=== PATIENT | male | born 1970 | race Hispanic/Latino ===

== ENCOUNTER 2024-06-09 16:35 | Emergency (ER) | payer OTHER ==
[~2024-06-09] VITALS: Ht 170.2 cm; Wt 63.5 kg
[2024-06-09 17:08] LABS: BASOPHILS # (AUTO) 0.04 K/uL (0.00-0.20); BASOPHILS % (AUTO) 0.9 % (0.0-5.0); EOSINOPHILS % (AUTO) 2.3 % (0.0-8.0); HEMATOCRIT 39.2 % (42-54); IMMATURE GRANULOCYTE ABSOLUTE 0.03 K/uL (0-1); LYMPHOCYTES # (AUTO) 1.4 K/uL (1.0-4.8); LYMPHOCYTES % (AUTO) 32.4 % (21.0-51.0); MEAN CORPUSCULAR HEMOGLOBIN 33.3 pg (27.0-33.0); MEAN CORPUSCULAR HGB CONC 33.9 g/dL (32.0-36.0); MONOCYTES # (AUTO) 0.4 K/uL (0.1-1.0); MONOCYTES % (AUTO) 8.6 % (3.0-13.0); NEUTROPHILS # (AUTO) 2.4 K/uL (1.8-7.7); NEUTROPHILS % (AUTO) 55.1 % (40.0-77.0); PLATELET COUNT (AUTO) 75 K/uL (130-400); WHITE BLOOD COUNT (AUTO) 4.3 K/uL (4.8-10.8)
[2024-06-09 17:22] LABS: CREATININE 0.5 mg/dL (0.5-1.3); POTASSIUM 3.6 mmol/L (3.5-5.1)
--- NOTE | 2024-06-09 17:29 | HMCIMG ---
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 Heart size is normal. The pulmonary vascularity and sonia appear normal. No abnormal pulmonary parenchymal opacity or consolidation identified. No significant pleural effusion noted. No pneumothorax detected. IMPRESSION: No radiographic evidence for any acute cardiopulmonary process.
--- NOTE | 2024-06-09 17:30 | NUR ---
PATIENT MADE AWARE OF UA SPECIMEN,. URINAL GIVEN
[2024-06-09 17:31] LABS: B-TYPE NATRIURETIC PEPTIDE 15 pg/mL (0-100)
--- NOTE | 2024-06-09 18:14 | ERN ---
General Chief Complaint: Chest Pain Stated Complaint: CP Time Seen by MD: 17:25 Time Seen by Midlevel: 17:25 Source: patient History of Present Illness Initial Comments 53-year-old male who presents to the emergency department due to chest pain onset 2 hours prior to arrival. Patient reports previous similar symptoms during a panic attack. Patient's pain resolved upon arrival to the ED. Patient suffers from anxiety but discontinued medication two years ago. Denies further associated symptoms. PMHx HTN, anxiety Allergies: Coded Allergies: NSAIDS (Non-Steroidal Anti-Inflamma (Unverified Allergy, Intermediate, 06/09/24) aspirin (Unverified Allergy, Intermediate, 06/09/24) ibuprofen (Unverified Allergy, Intermediate, 06/09/24) Past Medical History Past Medical History: Anxiety, Hypertension Past Surgical History: None ROS Dictation Constitutional: Positive for anxious feeling Negative for fever,chills, and weight loss Eyes: Negative for injury, pain,redness, and discharge ENT: Negative for injury,pain or swelling Cardiovascular: Positive for chest pain Negative for palpitations, and edema Respiratory: Negative for shortness of breath, cough, and wheezing, Abdomen/GI: Negative for abdominal pain, nausea, vomiting, diarrhea, and constipation Back: Negative for injury and pain : Negative for painful urination, bleeding or discharge MS/Extremity: Negative for injury and deformity Skin: Negative for rash, and discoloration Neuro: Negative for headache, weakness, numbness, tingling, and seizure Psych: Negative for suicide ideation, homicidal ideation, and hallucinations Physical Exam Physical Exam Dictation General: awake, alert, no acute distress Head/Face: Normocephalic, atraumatic Eyes: PERRL, EOMI, normal conjunctiva ENT: oral cavity clear, oral mucosa moist Neck: Supple, normal range of motion Cardiovascular: RRR, normal S1/S2 Respiratory: CTAB, no respiratory distress, no rales or wheezes Abdomen: Soft, non-tender, non-distended, normal bowel sounds, no guarding or rebound Skin: Warm, dry, normal turgor, no rash MS/Extremity: Pulses equal, no cyanosis, neurovascular intact, FROM Neuro: COAx4, GCS 15, strength 5/5, CN 2-12 intact, normal cerebellar exam, normal gait Psych: Normal behavior, mood, and affect normal Results Laboratory and Microbiology Lab and Micro Result Laboratory Tests Test 06/09/24 16:55 06/09/24 18:24 06/09/24 19:36 White Blood Count 4.3 K/uL (4.8-10.8) L Red Blood Count 4.00 MIL/uL (4.50-6.20) L Hemoglobin 13.3 g/dL (14.0-18.0) L Hematocrit 39.2 % (42-54) L Mean Corpuscular Volume 98.0 fL (79-99) Mean Corpuscular Hemoglobin 33.3 pg (27.0-33.0) H Mean Corpuscular Hemoglobin Concent 33.9 g/dL (32.0-36.0) Red Cell Distribution Width 13.0 % (11.0-15.5) Platelet Count 75 K/uL (130-400) L Mean Platelet Volume 8.9 fL (7.5-10.5) Immature Granulocyte % (Auto) 0.7 % (0-1) Neutrophils (%) (Auto) 55.1 % (40.0-77.0) Lymphocytes (%) (Auto) 32.4 % (21.0-51.0) Monocytes (%) (Auto) 8.6 % (3.0-13.0) Eosinophils (%) (Auto) 2.3 % (0.0-8.0) Basophils (%) (Auto) 0.9 % (0.0-5.0) Neutrophils # (Auto) 2.4 K/uL (1.8-7.7) Lymphocytes # (Auto) 1.4 K/uL (1.0-4.8) Monocytes # (Auto) 0.4 K/uL (0.1-1.0) Eosinophils # (Auto) 0.10 K/uL (0.00-0.70) Basophils # (Auto) 0.04 K/uL (0.00-0.20) Absolute Immature Granulocyte (auto 0.03 K/uL (0-1) Nucleated Red Blood Cells 0.0 % (0.0-0.19) Sodium Level 143 mmol/L (136-145) Potassium Level 3.6 mmol/L (3.5-5.1) Chloride Level 101 mmol/L (101-111) Carbon Dioxide Level 26 mmol/L (21-32) Blood Urea Nitrogen 3 mg/dL (7-18) L Creatinine 0.5 mg/dL (0.5-1.3) Glomerular Filtration Rate Calc 123 mL/min (>90) Random Glucose 88 mg/dL (70-105) Total Calcium 8.6 mg/dL (8.5-10.1) Total Creatine Kinase 122 U/L (21-232) Troponin I High Sensitivity 6.0 ng/L (4-75) 8 ng/L (4-75) B-Type Natriuretic Peptide 15 pg/mL (0-100) Urine Color COLORLESS (YELLOW) Urine Appearance CLEAR (CLEAR) Urine pH 5.5 (5.0-8.0) Urine Specific [place] 1.003 (1.001-1.031) Urine Protein NEGATIVE mg/dL (NEGATIVE) Urine Glucose (UA) NEGATIVE mg/dL (NEGATIVE) Urine Ketones 10 mg/dL (NEGATIVE) H Urine Occult Blood NEGATIVE (NEGATIVE) Urine Nitrate NEGATIVE (NEGATIVE) Urine Bilirubin NEGATIVE mg/dL (NEGATIVE) Urine Urobilinogen 0.2 mg/dL (0.2-1.0) Urine Leukocyte Esterase NEGATIVE Pattie/uL Urine RBC None /HPF (0-1) Urine WBC None /HPF (0-1) Urine Bacteria None /HPF (None Seen) Urine Opiates Screen NEGATIVE (NEGATIVE) Urine Barbiturates Screen NEGATIVE (NEGATIVE) Urine Phencyclidine Screen NEGATIVE (NEGATIVE) Urine Amphetamines Screen NEGATIVE (NEGATIVE) Urine Benzodiazepines Screen NEGATIVE (NEGATIVE) Urine Cocaine Screen NEGATIVE (NEGATIVE) Urine Marijuana (THC) Screen NEGATIVE (NEGATIVE) Labs Reviewed?: Yes EKG/XRAY/US/CT/MRI EKG Comment Date: 06/09/24 Time: 16:57 Rate: 71 EKG interpretation: Normal sinus rhythm, no STEMI Reviewed by ED Attending Date: 06/09/24 Time: 17:59 Rate: 79 EKG interpretation: Normal sinus rhythm, no STEMI Reviewed by ED Attending X-RAY Comment REASON: CHEST PAIN ORDERING PHYSICIAN: SRIRAM WYATT DO PROCEDURE: CXR1VW - CHEST 1VW PORTABLE CHEST RADIOGRAPH INDICATION: CHEST PAIN COMPARISON: None FINDINGS: renal dietitian leads overlie the field of view. Heart size is normal. The pulmonary vascularity and sonia appear normal. No abnormal pulmonary parenchymal opacity or consolidation identified. No significant pleural effusion noted. No pneumothorax detected. IMPRESSION: No radiographic evidence for any acute cardiopulmonary process. DICTATED BY: MARCO LOU MD DATE: 06/09/24 1721 MDM MDM: Differential diagnosis: Musculoskeletal chest pain, DC, ACS Rationale: 53-year-old male who presents to the emergency department due to chest pain onset 2 hours prior to arrival. Patient reports previous similar symptoms during a panic attack. Patient's pain resolved upon arrival to the ED. Patient suffers from anxiety but discontinued medication two years ago. Denies further associated symptoms. PMHx HTN, anxiety Per physical examination patient is in no acute distress, nonlabored breathing. Verbalized pain had resolved. Heart score 2. Labs obtained with mild decrease WBCs, mild anemia with hemoglobin of 13.3, otherwise normal labs, negative troponin. UA negative for urinary tract infection, UDS negative. Patient was educated on findings and diagnosis. Advised to follow up with PCP. Return to the emergency department if any worsening symptoms. Patient verbalized understanding. Patient stable for discharge. There are no social concerns with this patient. I independently interpreted the test that were performed, results were reviewed by me and considered findings on radiology if ordered. Medical management and examination interpretation discussions were had by me with other qualified healthcare professionals as indicated for the patient's care. ED Course Orders Procedure Category Date Status Time Vital Signs Per CPOE 06/09/24 Transmitted Routine 16:37 B-Type Natriuretic LAB 06/09/24 Complete Peptide 16:37 Chest 1vw RAD 06/09/24 Resulted 16:37 12 Lead Ekg Tracing- EKG 06/09/24 Complete Technical 16:37 Oxygen By Nc/Pulse Ox CPOE 06/09/24 Transmitted 16:37 Maintain Iv CPOE 06/09/24 Transmitted 16:37 Iv Insertion CPOE 06/09/24 Transmitted 16:37 Cardiac Monitoring CPOE 06/09/24 Transmitted 16:37 Pulse Oximetry With CPOE 06/09/24 Transmitted Vs And Prn 16:37 Cbc With Differential LAB 06/09/24 Complete 16:37 Activity: Br W/Brp CPOE 06/09/24 Transmitted With Assist 16:37 Urinalysis Profile LAB 06/09/24 Complete 16:37 Basic Metabolic Panel LAB 06/09/24 Complete 16:37 Cardiac Panel LAB 06/09/24 Complete 16:55 Drug Screen Urine LAB 06/09/24 Complete 17:43 12 Lead Ekg Tracing- EKG 06/09/24 Complete Technical 17:46 Troponin I High LAB 06/09/24 Complete Sensitivity 19:16 Vital Signs Date Time Temp Pulse Resp B/P (MAP) Pulse Ox O2 Delivery O2 Flow Rate FiO2 06/09/24 20:22 98.2 80 24 143/86 98 Room Air* 0 06/09/24 19:50 98.2 85 20 132/78 98 Room Air* 0 21 06/09/24 18:33 78 16 146/87 98 Room Air* 0 06/09/24 16:52 81 22 147/85 97 Room Air* 0 06/09/24 16:38 97.9 74 18 160/80 99 Room Air 0 HEART Score Response (Comments) Value History: Low suspicion (0) 0 EKG: Normal 0 Age: 45-65yrs (+1) 1 Risk Factors: 1-2 risk factors (+1) 1 Initial Troponin: Normal limit (0) 0 HEART Score Risk: Low Risk for MACE (1-3) Total 2 DX & DISP Disposition: Discharge Departure Impression: Primary Impression: Chest pain with low risk for cardiac etiology Additional Impression: Anxiousness Condition: Stable Additional Instructions: Discharge home. Rest. Follow up with primary care DrJuice in 24 hours. Return to the ER for any acute changes or worsening symptoms. If any medications were prescribed take as directed. Okay to continue home medications unless otherwise discussed during your visit in the emergency room today. Patient was also advised to follow-up with primary care physician in 1 to 2 days for continued monitoring. Referrals: SELF,REFERRAL (PCP) I performed the substantive portion of the visit. I have reviewed and personally made and approve the management plan that is documented in the notes by myself or the SHANTEL. I acknowledge full responsibility for the patient's management plan. YONATAN JEAN Jun 09, 2024 18:14 SRIRAM WYATT DO Jun 10, 2024 07:45
--- NOTE | 2024-06-09 18:34 | NUR ---
STATES NO LONGER HAS CHEST DISCOMFORT
[2024-06-09 18:45] LABS: APPEARANCE,URINE CLEAR (CLEAR); BILIRUBIN,URINE NEGATIVE (NEGATIVE); COLOR,URINE COLORLESS (YELLOW); GLUCOSE, URINE (UA) NEGATIVE (NEGATIVE); KETONES,URINE 10 mg/dL (NEGATIVE); LEUKOCYTE ESTERASE ,URINE NEGATIVE Leu/uL (NEGATIVE); NITRATE,URINE NEGATIVE (NEGATIVE); OCCULT BLOOD,URINE NEGATIVE (NEGATIVE); PH,URINE 5.5 (5.0-8.0); PROTEIN,URINE NEGATIVE (NEGATIVE); UROBILINOGEN,URINE 0.2 mg/dL (0.2-1.0)
[2024-06-09 18:46] LABS: ADD UA MICROSCOPIC YES
[2024-06-09 18:52] LABS: AMPHET/METH SCREEN,URINE NEGATIVE (NEGATIVE); BARBITURATE SCREEN, URINE NEGATIVE (NEGATIVE); BENZODIAZEPINES SCREEN,URINE NEGATIVE (NEGATIVE); CANNABINOID SCREEN,URINE NEGATIVE (NEGATIVE); COCAINE SCREEN,URINE NEGATIVE (NEGATIVE); OPIATE SCREEN,URINE NEGATIVE (NEGATIVE); PHENCYCLIDINE SCREEN,URINE NEGATIVE (NEGATIVE)
--- NOTE | 2024-06-09 19:24 | NUR ---
PT CARE ASSUMED AT THIS TIME
[2024-06-09 20:22] VITALS: BP 143/86; PULSE 80; RESP 24; TEMP 98.2; O2SAT 98
--- NOTE | 2024-06-10 06:45 | EKG ---
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
--- NOTE | 2024-06-10 06:46 | EKG ---
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
== END 2024-06-09 20:50 | disposition home or self-care (01) ==
LOC: EDH 16:35
DX: R07.89 Other chest pain (principal); F41.9 Anxiety disorder, unspecified; I10 Essential (primary) hypertension; Z88.6 Allergy status to analgesic agent
CPT/HCPCS: 36415; 71045; 80048; 80305; 81001; 82550; 83880; 84484; 85025; 93005; 99285

== ENCOUNTER 2024-11-28 07:02 | Inpatient (IN) | payer OTHER ==
[~2024-11-28] VITALS: Ht 162.6 cm; Wt 77.4 kg
[2024-11-28] VITALS (25 sets, daily range): BP systolic 86–159; BP diastolic 56–111; PULSE 76–107; RESP 14–30; TEMP 98.5–98.6; O2SAT 97–98
--- NOTE | 2024-11-28 07:38 | ERN ---
General Chief Complaint: Fatigue Stated Complaint: FATIGUE Time Seen by MD: 07:25 Source: patient, family History of Present Illness Initial Comments Patient is a 54-year-old male coming in complaining of generalized body weakness elevated blood pressure. Patient states he has a history of hypertension and he believes his liver is affected. Allergies: Coded Allergies: NSAIDS (Non-Steroidal Anti-Inflamma (Unverified Allergy, Intermediate, 06/09/24) aspirin (Unverified Allergy, Intermediate, 06/09/24) ibuprofen (Unverified Allergy, Intermediate, 06/09/24) Past Medical History Past Medical History: Anxiety, Hypertension Past Surgical History: None ROS Dictation CONSTITUTIONAL: No chills, no fever, weakness, no diaphoresis, no malaise. HEAD/FACE: No signs of trauma. EENT: No eye pain, no blurred vision, no tearing, no double vision, no ear pain, no ear discharge, no nose pain, no nasal congestion, no throat pain, no throat swelling, no mouth pain. RESPIRATORY: No cough, no orthopnea, no SOB, no stridor, no wheezing. CARDIOVASCULAR: No chest pain, no edema, no palpitations, no syncope. GASTROINTESTINAL/ABDOMINAL: No abdominal pain, no constipation, no diarrhea, no nausea, no vomiting. GENITOURINARY: No abnormal discharge, no dysuria, no frequent urination, no hematuria. No complaints of pain in the genitals. MUSCULOSKELETAL: No back pain, no gout, no joint pain, no joint swelling, no muscle pain, no muscle stiffness, no neck pain. INTEGUMENTARY: No change in color, no change in hair/nails, no dryness, no le qu[place], no lumps, no rash. NEUROLOGICAL/PSYCH: No anxiety, not depressed, no emotional problem, no headache, no numbness, no pre-existing deficit, no history of seizures, no tremors, no weakness. HEMATOLOGIC/LYMPHATIC: Not anemic, no history of blood clots, no apparent bleeding, no bruising, glands not swollen. All Systems Negative, Except as Noted. Physical Exam Physical Exam Dictation VITAL SIGNS: Reviewed. GENERAL APPEARANCE: Alert, oriented x3, no acute distress, obese. HEAD AND FACE: Non-traumatic. EYES: PERRL, pink conjunctivas, eyelid no trauma, anterior chamber clear. EARS: Pinnas intact and no signs of trauma or erythema. Ear canals clear and no discharge. TMs no erythema. NOSE: No discharge, no bleeding. OROPHARYNX: Mouth normal, teeth no caries, tongue pink. Pharynx clear, no erythema. Tonsils no exudates, no abscesses noted. Mucous membrane moist. NECK: Supple, non-tender, no thyromegaly, no masses, no JVD, no bruits. BREAST: Deferred. CHEST: No tenderness, no crepitus, no paradoxical movement, no retractions. LUNGS: Clear, well-ventilated, symmetric, no rales, no wheezing, no rhonchi, no stridor, good breath sounds bilaterally. HEART: Regular rate, regular rhythm, no murmur, no gallops. VASCULAR: No peripheral edema. ABDOMEN: Soft, positive bowel sounds, nondistended, no guarding, nontender, no rebound, no masses no hepatomegaly, no splenomegaly, no Kruger's sign, no hernias. RECTAL: Deferred. GENITAL: Deferred. NEUROLOGICAL: Normal speech, gross motor function intact, gross sensory function intact. MUSCULOSKELETAL: Neck nontender, full range of motion, back nontender, full range of motion. EXTREMITIES: Nontender, full range of motion. SKIN: Color pink, dry, no turgor, no rash, no lacerations, no abrasions, no contusions. LYMPHATICS: Deferred. Results Laboratory and Microbiology Lab and Micro Result Laboratory Tests Test 11/28/24 07:33 White Blood Count 13.4 K/uL (4.8-10.8) H Red Blood Count 2.76 MIL/uL (4.50-6.20) L Hemoglobin 9.8 g/dL (14.0-18.0) L Hematocrit 26.7 % (42-54) L Mean Corpuscular Volume 96.7 fL (79-99) Mean Corpuscular Hemoglobin 35.5 pg (27.0-33.0) H Mean Corpuscular Hemoglobin Concent 36.7 g/dL (32.0-36.0) H Red Cell Distribution Width 15.8 % (11.0-15.5) H Platelet Count 157 K/uL (130-400) Mean Platelet Volume 8.8 fL (7.5-10.5) Immature Granulocyte % (Auto) 1.0 % (0-1) Neutrophils (%) (Auto) 80.7 % (40.0-77.0) H Lymphocytes (%) (Auto) 7.9 % (21.0-51.0) L Monocytes (%) (Auto) 8.4 % (3.0-13.0) Eosinophils (%) (Auto) 1.6 % (0.0-8.0) Basophils (%) (Auto) 0.4 % (0.0-5.0) Neutrophils # (Auto) 10.8 K/uL (1.8-7.7) H Lymphocytes # (Auto) 1.1 K/uL (1.0-4.8) Monocytes # (Auto) 1.1 K/uL (0.1-1.0) H Eosinophils # (Auto) 0.22 K/uL (0.00-0.70) Basophils # (Auto) 0.05 K/uL (0.00-0.20) Absolute Immature Granulocyte (auto 0.13 K/uL (0-1) Nucleated Red Blood Cells 0.0 % (0.0-0.19) White Cell Morphology Comment See comments Red Blood Cell Morphology See comments Sodium Level 112 mmol/L (136-145) L Potassium Level 3.6 mmol/L (3.5-5.1) Chloride Level 80 mmol/L (101-111) *L Carbon Dioxide Level 27 mmol/L (21-32) Blood Urea Nitrogen 3 mg/dL (7-18) L Creatinine 0.5 mg/dL (0.5-1.3) Glomerular Filtration Rate Calc 123 mL/min (>90) Random Glucose 97 mg/dL (70-105) Total Calcium 7.5 mg/dL (8.5-10.1) L Magnesium Level 1.30 mg/dL (1.80-2.40) L Troponin I High Sensitivity < 4 ng/L (4-75) L Labs Reviewed?: Yes MDM MDM: Differential diagnosis: HYPONATREMIA IN HIS, HYPOCHLOREMIC, HYPOMAGNESEMIA, Rationale: Tests considered and ordered secondary to shared decision making include: Previous outside records reviewed: Old ER visits. Risk of complication and/or morbidity or mortality of patient management: None Medications-Per medication reconciliation Need for hospitalization: Patient does meet criteria for hospitalization. Need for emergency major/minor surgery: No There are no social concerns with this patient. Prescription drug management Prescriptions will include symptomatic care Patient's prior external medical records from other ER visits were reviewed by me as indicated. Prior testing and results from previous visits were reviewed. Prior tests were taken into account with medical decision making and resource ut ilization, independent historian/historians were used to obtain complete medical history. I independently interpreted the test that were performed, results were reviewed by me and considered findings on radiology if ordered. Medical management and examination interpretation discussions were had by me with other qualified healthcare professionals as indicated for the patient's car e. PATIENT WILL BE ADMITTED UNDER THE CARE OF HOSPITALIST GROUP. ED Course Orders Procedure Category Date Status Time Cbc With Differential LAB 11/28/24 Complete 07:32 Chest 1vw RAD 11/28/24 Taken 07:32 12 Lead Ekg Tracing- EKG 11/28/24 Complete Technical 07:32 Magnesium LAB 11/28/24 Complete 07:32 Troponin I High LAB 11/28/24 Complete Sensitivity 07:32 Urinalysis Profile LAB 11/28/24 Logged 07:32 Basic Metabolic Panel LAB 11/28/24 Complete 07:32 Vital Signs Date Time Temp Pulse Resp B/P (MAP) Pulse Ox O2 Delivery O2 Flow Rate FiO2 11/28/24 07:21 97.9 98 23 143/83 100 Room Air* 0 21 11/28/24 07:03 98.1 91 16 118/73 99 Room Air Critical Care Note Comments CRITICAL CARE PROCEDURE NOTE AUTHORIZED AND PERFORMED BY: TOTAL CRITICAL CARE TIME: APPROXIMATELY 36 MINUTES DUE TO A HIGH PROBABILITY OF CLINICALLY SIGNIFICANT, LIFE THREATENING DETERIORATION, THE PATIENT REQUIRED MY HIGHEST LEVEL OF PREPAREDNESS TO INTERVENE EMERGENTLY AND I PERSONALLY SPENT THIS CRITICAL CARE TIME DIRECTLY AND PERSONALLY MANAGING THE PATIENT. THIS CRITICAL CARE TIME INCLUDED OBTAINING A HISTORY; EXAMINING THE PATIENT; PULSE OXIMETRY; ORDERING AND REVIEW OF STUDIES; ARRANGING URGENT TREATMENT WITH DEVELOPMENT OF A MANAGEMENT PLAN; EVALUATION OF PATIENT'S RESPONSE TO TREATMENT; FREQUENT REASSESSMENT; AND, DISCUSSIONS WITH OTHER PROVIDERS. THIS CRITICAL CARE TIME WAS PERFORMED TO ASSESS AND MANAGE THE HIGH PROBABILITY OF IMMINENT, LIFE-THREATENING DETERIORATION THAT COULD RESULT IN MULTI-ORGAN FAILURE. IT WAS EXCLUSIVE OF SEPARATELY BILLABLE PROCEDURES AND TREATING OTHER PATIENTS AND TEACHING TIME. PLEASE SEE MDM SECTION AND THE REST OF THE NOTE FOR FURTHER INFORMATION ON PATIENT ASSESSMENT AND TREATMENT. DX & DISP Disposition: Inpatient Decision to Admit Time: 08:40 Departure Impression: Primary Impression: Hyponatremia Additional Impressions: Hypochloremia, History of cirrhosis of liver Condition: Stable Referrals: JOLLY BOOGIE MD (PCP) LEATHA GUERRA MD Nov 28, 2024 07:38
[2024-11-28 07:43] LABS: IMMATURE GRANULOCYTE ABSOLUTE 0.13 K/uL (0-1); NUCLEATED RED BLOOD CELLS 0.0 % (0.0-0.19); PLATELET COUNT (AUTO) 157 K/uL (130-400); RED BLOOD CELL COUNT(AUTO) 2.76 MIL/uL (4.50-6.20); RED CELL DISTRIBUTION WIDTH 15.8 % (11.0-15.5); WHITE BLOOD COUNT (AUTO) 13.4 K/uL (4.8-10.8)
[2024-11-28 07:54] LABS: CREATININE 0.5 mg/dL (0.5-1.3); GLOMERULAR FILTR. RATE CALC 123.0 mL/min (>90); GLUCOSE,RANDOM 97.0 mg/dL (70-105); SODIUM SERUM 112.0 mmol/L (136-145); UREA NITROGEN, BLOOD 3.0 mg/dL (7-18)
--- NOTE | 2024-11-28 07:59 | EKG ---
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
--- NOTE | 2024-11-28 08:40 | NUR ---
SPOKE TO DR WAN IN REGARDS TO POSSIBLE NEW CONSULT FOR ELECTROLYTE IMBALANCE
--- NOTE | 2024-11-28 08:43 | HMCIMG ---
EXAM: CR Chest, 1 View. CLINICAL HISTORY: sob COMPARISON: None provided. FINDINGS: LUNGS: There is no mass, infiltrate, or acute pulmonary abnormality. PLEURAL SPACES: No evidence of pleural effusion or pneumothorax. MEDIASTINUM: The cardiomediastinal silhouette is within normal limits. BONES: No aggressive appearing osseous lesion seen. IMPRESSION: No acute cardiopulmonary pathology is evident. /[place]
--- NOTE | 2024-11-28 09:10 | HP ---
[facility] Date of Service: Nov 28, 2024 Time of Service: 09:10 HISTORY OF PRESENT ILLNESS: 54-year-old male with past medical history of hypertension who presented to the hospital secondary to generalized body weakness, abdominal distention and lower extremity edema. Patient states for the past one week he has been feeling weak in his lower extremities. He has not been able to ambulate very much. This also noted nausea and vomiting with associated abdominal distention. Denies any fever, chills, shortness of breath, chest pain, cough, abdominal pain. Denied any changes in his bowel movement. He has noted some blood with his bowel movement. His last recent bowel movement was negative. Denies any melena but has noted some hematochezia. Denied any dysuria, changes in his urination. He has had decreased appetite for the past few days. He has been tolerating liqui ds and solids at home. Denies any dysphagia. Denies any falls, syncopal episode. He has noted weight gain recently. He is alert oriented x4 and is able to answer questions and follow conversations. Labs were notable for white count of 13.4, hemoglobin was 9.8, platelet count was 157k, sodium was 112, potassium was 3.6, chloride was 80, magnesium was 1.3, creatinine was 0.5 Patient underwent a chest x-ray which showed no acute abnormality REVIEW OF SYSTEMS CONSTITUTIONAL: Denies fevers, chills, or night sweats. No unintentional weight loss reported. Positive for generalized body weakness NEUROLOGICAL: Denies headache, amaurosis fugax, motor weakness, sensory deficit, vertigo/spinning sensation, gait abnormalities, or tremors. ENT: No hearing loss, otalgia, otorrhea, rhinitis, rhinorrhea, hoarseness, or sore throat. CARDIOVASCULAR: Denies any exertional angina, dyspnea on exertion, orthopnea, paroxysmal nocturnal dyspnea, palpitations, life-threatening arrhythmias, claudication. PULMONARY: Denies any shortness of breath, cough, phlegm/sputum, hemoptysis, pleuritic chest pain. GASTROINTESTINAL: Positive for nausea, vomiting, hematochezia, abdominal distention. Denied any melena, constipation, diarrhea GENITOURINARY: Denies frequency, urgency, nocturia, hematuria or incontinence (Storage/Irritative symptoms.) Low urinary stream, straining to void, urinary intermittency or hesitancy, splitting of the voiding stream, terminal dribbling. ENDOCRINOLOGIC: Denies polyuria, polydipsia, polyphagia or heat/cold intolerances. HEMATOLOGIC: Denies thrombophilia/previous clots, or coagulopathy/bleeding disorders. ONCOLOGIC: Denies personal history of malignancy. DERMATOLOGIC: Denies rashes or pruritus. PSYCHIATRIC: Denies any suicidal or homicidal ideation. Denies hallucinations. PAST MEDICAL HISTORY: Hypertension PAST SURGICAL HISTORY: Denied any surgical history PAST SOCIAL HISTORY: Denied smoking. He states he drinks alcohol daily around 2-3 beers for at least 10 years. Denied any drug use FAMILY HISTORY: Denied any pertinent family history Coded Allergies: NSAIDS (Non-Steroidal Anti-Inflamma (Unverified Allergy, Intermediate, 06/09/24) aspirin (Unverified Allergy, Intermediate, 06/09/24) ibuprofen (Unverified Allergy, Intermediate, 06/09/24) PHYSICAL EXAM GENERAL APPEARANCE: The patient is awake, alert, and oriented, in no acute cardiopulmonary distress. NEUROLOGICAL: Cranial nerves II-XII grossly intact. Motor is 5/5 in bilateral upper and lower extremities proximal to distal. No sensory deficits. HEENT: Face is symmetric. Pupils are equal and reactive. Extraocular movements are intact. NECK: Supple. No JVD. No thyromegaly. No submental, submandibular, pre- /postauricular, occipital or supraclavicular lymphadenopathy. CHEST: Normal chest expansion. No Telemetry. LUNGS: Absence of any rales, rhonchi or any wheezing. CARDIOVASCULAR: Regular. S1 and S2 normal. No appreciable rubs, murmurs or gallops. ABDOMEN: Soft, patient has abdominal distention noted. There is no guarding, no rigidity noted : Deferred. No Espinosa. EXTREMITIES: 2+ pitting edema in the lower extremity bilaterally and not cyanotic. No clubbing. Good capillary refill. SKIN: No skin breakdown. Vital Sign (Last 24 Hours) 11/28/24 07:21 Temp 97.9 Pulse 98 Resp 23 B/P (MAP) 143/83 Pulse Ox 100 O2 Delivery Room Air* O2 Flow Rate 0 FiO2 21 LABS: Laboratory: Test 11/28/24 07:33 Range/Units White Blood Count 13.4 H 4.8-10.8 K/uL Red Blood Count 2.76 L 4.50-6.20 MIL/uL Hemoglobin 9.8 L 14.0-18.0 g/dL Hematocrit 26.7 L 42-54 % Mean Corpuscular Volume 96.7 79-99 fL Mean Corpuscular Hemoglobin 35.5 H 27.0-33.0 pg Mean Corpuscular Hemoglobin Concent 36.7 H 32.0-36.0 g/dL Red Cell Distribution Width 15.8 H 11.0-15.5 % Platelet Count 157 130-400 K/uL Mean Platelet Volume 8.8 7.5-10.5 fL Immature Granulocyte % (Auto) 1.0 0-1 % Neutrophils (%) (Auto) 80.7 H 40.0-77.0 % Lymphocytes (%) (Auto) 7.9 L 21.0-51.0 % Monocytes (%) (Auto) 8.4 3.0-13.0 % Eosinophils (%) (Auto) 1.6 0.0-8.0 % Basophils (%) (Auto) 0.4 0.0-5.0 % Neutrophils # (Auto) 10.8 H 1.8-7.7 K/uL Lymphocytes # (Auto) 1.1 1.0-4.8 K/uL Monocytes # (Auto) 1.1 H 0.1-1.0 K/uL Eosinophils # (Auto) 0.22 0.00-0.70 K/uL Basophils # (Auto) 0.05 0.00-0.20 K/uL Absolute Immature Granulocyte (auto 0.13 0-1 K/uL Nucleated Red Blood Cells 0.0 0.0-0.19 % White Cell Morphology Comment See comments Red Blood Cell Morphology See comments Sodium Level 112 L 136-145 mmol/L Potassium Level 3.6 3.5-5.1 mmol/L Chloride Level 80 *L 101-111 mmol/L Carbon Dioxide Level 27 21-32 mmol/L Blood Urea Nitrogen 3 L 7-18 mg/dL Creatinine 0.5 0.5-1.3 mg/dL Glomerular Filtration Rate Calc 123 >90 mL/min Random Glucose 97 70-105 mg/dL Total Calcium 7.5 L 8.5-10.1 mg/dL Magnesium Level 1.30 L 1.80-2.40 mg/dL Troponin I High Sensitivity < 4 L 4-75 ng/L DIAGNOSTICS / RADIOLOGY: Chest x-ray was reviewed ASSESSMENT: Severe hyponatremia Suspected decompensated liver cirrhosis POA Alcohol use Fluid overload likely in setting of liver cirrhosis Ascites Anemia Intermittent hematochezia Hypertension Hypomagnesemia PLAN: - the patient to be admitted to ICU -in reference to hyponatremia. We will place patient on fluid restriction. Check urine sodium, urine osmolarity serum osmolarity. Check BMP q.3 hours. We will request critical care consultation. Patient is asymptomatic at this time. We will request nephrology consultation. -obtain a CT abdomen pelvis. Obtain a liver ultrasound -check stool guaiac. Start patient on Protonix IV b.i.d. -patient will be on hypokalemia and hypomagnesemia protocol -Patient will be monitored closely for alcohol withdrawal. -start patient on thiamine and folic acid daily -further orders per hospitalization course. - start rocephin daily. Obtain blood cultures if patient is febrile. If ascites is present, will obtain paracentesis Advanced Care Planning Which of the following were discussed: Hospice care: Yes __ No _x_ Therapeutic options: Yes __ No __ Advance directives: Yes __ No __ Other discussions: Discussed with who?: patient (Patient, family or surrogates) Voluntary nature of this service was explained to the patient? Yes _x_ No __ Amount of time spent: 25 minutes Total critical care time spend > 35 minutes MANOLO Calderon MD, MD Nov 28, 2024 09:10
[2024-11-28 09:21] LABS: CREATININE 0.5 mg/dL (0.5-1.3); GLOMERULAR FILTR. RATE CALC 123.0 mL/min (>90); GLUCOSE,RANDOM 99.0 mg/dL (70-105); SODIUM SERUM 113.0 mmol/L (136-145); UREA NITROGEN, BLOOD 3.0 mg/dL (7-18)
[2024-11-28] MEDS: MAGNESIUM 2GM PREMIX 50ML 50 ML IV PRN (09:47)
[2024-11-28 10:25] LABS: ASPARTATE AMINOTRANSFERASE 122.0 U/L (10-37); TOTAL PROTEIN, SERUM 6.1 g/dL (6.0-8.3)
--- NOTE | 2024-11-28 10:32 | NUR ---
DR. WAN AT BEDSIDE ASSESSING PATIENT, VERBAL ORDERS TO PLACE PT ON A FLUID RESTRICTION OF 1,500 MLS DAILY. NO NEW ORDERS GIVEN AT THIS TIME./MOON
--- NOTE | 2024-11-28 10:50 | HMCIMG ---
EXAM: CT Abdomen and Pelvis Without IV contrast CLINICAL HISTORY: abdominal distention TECHNIQUE: Axial computed tomography images of the abdomen and pelvis without intravenous contrast. CONTRAST: No IV contrast. COMPARISON: None provided. FINDINGS: LUNG BASES: Minimal right pleural effusion. Dependent atelectatic changes in the left lower lobe. No pleural effusions are seen. LIVER: Diffuse fatty infiltration of the liver. GALLBLADDER AND BILE DUCTS: The gallbladder appears within normal limits. No radioopaque gallstones are seen. No biliary ductal dilatation is evident. PANCREAS: Unremarkable. SPLEEN: Tiny calcified granuloma in the spleen. ADRENAL GLANDS: Unremarkable. KIDNEYS, URETERS, AND BLADDER: The kidneys appear within normal limits. There is no hydronephrosis or hydroureter. No urinary calculi are seen. STOMACH AND BOWEL: Unremarkable appearance of the stomach and bowel. No evidence of bowel obstruction. No evidence suggesting enteritis or colitis. APPENDIX: No evidence of acute appendicitis on CT examination. PERITONEUM: Large ascites. Diffuse omental and mesenteric fat stranding. No free air. LYMPH NODES: No lymphadenopathy is evident. REPRODUCTIVE: Unremarkable as visualized. VASCULATURE: No evidence of abdominal aortic aneurysm. Atheromatous wall calcifications in the abdominal aorta and its branches. BONES AND SOFT TISSUE: No aggressive appearing osseous lesion. No acute osseous pathology is evident. Mild multilevel degenerative changes in the visualized spine. Diffuse edematous changes in the abdominal wall and scrotal wall. There are a few phleboliths in the pelvis. IMPRESSION: 1. Large ascites with omental and mesenteric fat stranding. 2. Diffuse edematous changes in the abdominal and scrotal wall. 3. Minimal right pleural effusion. /[place]
[2024-11-28 10:51] LABS: CREATININE 0.5 mg/dL (0.5-1.3); GLOMERULAR FILTR. RATE CALC 123.0 mL/min (>90); GLUCOSE,RANDOM 97.0 mg/dL (70-105); SODIUM SERUM 113.0 mmol/L (136-145); UREA NITROGEN, BLOOD 3.0 mg/dL (7-18)
[2024-11-28 10:56] LABS: INR 1.48 (0.85-1.15)
--- NOTE | 2024-11-28 11:34 | CONS ---
[facility] CONSULTATION NOTE Date Patient Seen: Nov 28, 2024 Time of Visit: 11:30 Supervising Physician: Dr Jeremias Pan Reason for Consultation: ICU medical management Primary Care Physician: [ ] Outpatient Specialists: [ ] Inpatient Consults: [ ] ASSESSMENT: Severe hyponatremia Suspected decompensated liver cirrhosis POA Alcohol use Fluid overload likely in setting of liver cirrhosis Ascites Anemia Intermittent hematochezia Hypertension Hypomagnesemia HPI: 54-year-old male with past medical history of hypertension who presented to the hospital secondary to generalized body weakness, abdominal distention and lower extremity edema. Patient states for the past one week he has been feeling weak in his lower extremities. He has not been able to ambulate very much. This also noted nausea and vomiting with associated abdominal distention. Denies any fever, chills, shortness of breath, chest pain, cough, abdominal pain. Denied any changes in his bowel movement. He has noted some blood with his bowel movement. His last recent bowel movement was negative. Denies any melena but has noted some hematochezia. Denied any dysuria, changes in his urination. He has had decreased appetite for the past few days. He has been tolerating liquids and solids at home. Denies any dysphagia. Denies any falls, syncopal episode. He has noted weight gain recently. He is alert oriented x4 and is able to answer questions and follow conversations. Patient was found to have large volume abdominal ascites, is sodium is 113, chloride 80, and LFTs elevated. Admitted under the hospitalist service requesting ICU for severe hyponatremia. Critical Care consulted for ICU medical management. Discussion with family members at bedside. Patient is a daily drinker, confirmed Patient full code. PAST MEDICAL HX: see above PAST SURGICAL HX: noncontributory SOCIAL HISTORY: No tobacco, ETOH, or illicit drug use Coded Allergies: NSAIDS (Non-Steroidal Anti-Inflamma (Unverified Allergy, Intermediate, 06/09/24) aspirin (Unverified Allergy, Intermediate, 06/09/24) ibuprofen (Unverified Allergy, Intermediate, 06/09/24) REVIEW OF SYSTEMS: 12 point ROS reviewed with patient. Pertinent positives mentioned above. Otherwise negative. PHYSICAL EXAM: GENERAL: alert, weak, awake oriented x 3 HEENT: EOMI, Sclera non icteric, moist mucosa NECK: Supple, no JVD, trachea midline LUNGS: Diminished at bases. No wheezes HEART: Regular rate and rhythm. Normal S1 and S2, without murmurs ABD: Large volume ascites EXT: No clubbing cyanosis or edema NEURO: Alert and oriented to person, follows commands Vital Signs (last 8hr) Date Time Temp Pulse Resp B/P (MAP) Pulse Ox O2 Delivery O2 Flow Rate FiO2 11/28/24 10:40 98.4 87 24 132/83 98 Room Air* 0 11/28/24 10:00 98.8 94 26 151/92 99 Room Air* 0 11/28/24 07:21 97.9 98 23 143/83 100 Room Air* 0 11/28/24 07:03 98.1 91 16 118/73 99 Room Air LABS: Hematology Labs: Test 11/28/24 07:33 Range/Units White Blood Count 13.4 H 4.8-10.8 K/uL Red Blood Count 2.76 L 4.50-6.20 MIL/uL Hemoglobin 9.8 L 14.0-18.0 g/dL Hematocrit 26.7 L 42-54 % Mean Corpuscular Volume 96.7 79-99 fL Mean Corpuscular Hemoglobin 35.5 H 27.0-33.0 pg Mean Corpuscular Hemoglobin Concent 36.7 H 32.0-36.0 g/dL Red Cell Distribution Width 15.8 H 11.0-15.5 % Platelet Count 157 130-400 K/uL Mean Platelet Volume 8.8 7.5-10.5 fL Immature Granulocyte % (Auto) 1.0 0-1 % Neutrophils (%) (Auto) 80.7 H 40.0-77.0 % Lymphocytes (%) (Auto) 7.9 L 21.0-51.0 % Monocytes (%) (Auto) 8.4 3.0-13.0 % Eosinophils (%) (Auto) 1.6 0.0-8.0 % Basophils (%) (Auto) 0.4 0.0-5.0 % Neutrophils # (Auto) 10.8 H 1.8-7.7 K/uL Lymphocytes # (Auto) 1.1 1.0-4.8 K/uL Monocytes # (Auto) 1.1 H 0.1-1.0 K/uL Eosinophils # (Auto) 0.22 0.00-0.70 K/uL Basophils # (Auto) 0.05 0.00-0.20 K/uL Absolute Immature Granulocyte (auto 0.13 0-1 K/uL Nucleated Red Blood Cells 0.0 0.0-0.19 % White Cell Morphology Comment See comments Red Blood Cell Morphology See comments Chemistry Labs: Test 11/28/24 10:28 11/28/24 09:05 11/28/24 07:53 11/28/24 07:33 Range/Units Sodium Level 113 L 136-145 mmol/L Potassium Level 3.5 3.5-5.1 mmol/L Chloride Level 81 *L 101-111 mmol/L Carbon Dioxide Level 25 21-32 mmol/L Blood Urea Nitrogen 3 L 7-18 mg/dL Creatinine 0.5 0.5-1.3 mg/dL Glomerular Filtration Rate Calc 123 >90 mL/min Random Glucose 97 70-105 mg/dL Total Calcium 7.2 L 8.5-10.1 mg/dL Hemoglobin A1c 4.8 4.0-6.0 % Estimated Average Glucose (eAG) 91 70-126 mg/dL Total Bilirubin 3.3 H 0.2-1.0 mg/dL Direct Bilirubin 2.3 H 0.0-0.3 mg/dL Aspartate Amino Transf (AST/SGOT) 122 H 10-37 U/L Alanine Aminotransferase (ALT/SGPT) 33 12-78 U/L Alkaline Phosphatase 207 H 50-136 U/L C-Reactive Protein, Quantitative 36.80 H 0.5-3.0 mg/L Total Protein 6.1 6.0-8.3 g/dL Albumin 1.9 L 3.5-5.0 g/dL Thyroid Stimulating Hormone (TSH) 3.61 0.36-3.74 uIU/mL Procalcitonin 0.17 0.05-0.5 ng/mL Magnesium Level 1.30 L 1.80-2.40 mg/dL Troponin I High Sensitivity < 4 L 4-75 ng/L Coagulation Labs: Test 11/28/24 10:28 Range/Units Prothrombin Time 15.1 H 9.6-11.6 SEC Prothromb Time International Ratio 1.48 H 0.85-1.15 Activated Partial Thromboplast Time 42.4 H 26.3-35.5 SEC DIAGNOSTICS / RADIOLOGY RESULTS: [ ] PLAN Follow pending labs, hepatitis panel, we will slowly correct patient's sodium level, BMP q.6 hours Paracentesis scheduled tomorrow with IR Telemetry NEURO: Minimize central acting medications as possible. Fall Precautions. Well lighted room through the day and minimize interruptions through the night to prevent acute delirium. PULMONARY: Supplemental 02 as needed Titrate Fio2 to keep Spo2 > or = 90% DuoNebs and CPT as needed IS hourly while awake for pulmonary hygiene Out of bed to chair as tolerated VAP Bundle Vent/BIPAP Settings: [ ] Driving pressure: [ ] P Plat: [ ] Static C: [ ] Static R: [ ] P/F Ratio: [ ] CARDIOVASCULAR: Follow hemodynamics. Titrate vasopressor to keep MAP >65 or systolic blood pressure >95mmHg DIPS: [ ] LINES: [ ] GI & NUTRITION: Continue nutritional support Aspirations precautions Prokinetic agents and laxatives as needed KIDNEYS & ELECTROLYTES: Strict monitoring of intake and output Daily weights Avoid nephrotoxic agents Monitor electrolytes and replace as needed Goal urine output of 30mL/hr or 0.5mL/kg/hr Urine output: [ ] Fluid Balance: [ ] ENDOCRINE: Maintain blood glucose between 100-180 at all times. Insulin sliding scale for blood glucose management INFECTIOUS DISEASE: Trend temperature. Rubin-culture if febrile. Micro: [ ] Antibiotics: [ ] HEMATOLOGY & COAGULATION: Monitor H&H. Keep Hgb > 7 Transfuse 1 unit of PRBC for Hgb < 7 Transfuse 1 pack of platelets of platelets < 20, 000 Watch for any signs and symptoms of bleeding SKIN: Pressure ulcer prevention per facility protocol Rehab: PT/OT Prophylaxis: GI: [ ] DVT: [ ] Code Status: Full Resuscitation Disposition: [ ] Other: Total patient care time exceeds 35 minutes excluding all procedures. Case was discussed and seen with my supervising physician. The above plan was formulated and agreed upon. MARCELINO PALMER Nov 28, 2024 11:34
[2024-11-28] MEDS: 0.9%NACL 1000ML 1,000 ML IV SCH (11:37)
[2024-11-28] MEDS ORDERED: LOSA50TA64 PO (13:04)
[2024-11-28 14:11] LABS: CREATININE 0.5 mg/dL (0.5-1.3); GLOMERULAR FILTR. RATE CALC 123.0 mL/min (>90); GLUCOSE,RANDOM 96.0 mg/dL (70-105); SODIUM SERUM 113.0 mmol/L (136-145); UREA NITROGEN, BLOOD 3.0 mg/dL (7-18)
[2024-11-28] MEDS: THIAMINE HCL 100 MG/ML 2ML VIAL IVP SCH (14:19)
[2024-11-28] MEDS: SODIUM CHLORIDE 1,000 MG TAB PO SCH (14:19)
[2024-11-28 17:18] LABS: APPEARANCE,URINE CLEAR (CLEAR); GLUCOSE, URINE (UA) NEGATIVE (NEGATIVE); LEUKOCYTE ESTERASE ,URINE NEGATIVE Leu/uL (NEGATIVE); NITRATE,URINE NEGATIVE (NEGATIVE); OCCULT BLOOD,URINE NEGATIVE (NEGATIVE)
[2024-11-28 17:20] LABS: ADD UA MICROSCOPIC NO
[2024-11-28 17:24] LABS: AMPHET/METH SCREEN,URINE NEGATIVE (NEGATIVE); BARBITURATE SCREEN, URINE NEGATIVE (NEGATIVE); CANNABINOID SCREEN,URINE NEGATIVE (NEGATIVE); COCAINE SCREEN,URINE NEGATIVE (NEGATIVE)
[2024-11-28 18:52] LABS: BODY FLUID RBC 155 /cu. mm.; BODY FLUID WBC 82 /cu. mm.
[2024-11-28 19:00] LABS: TOTAL PROTEIN,BODY FLUID 1.5 g/dL
[2024-11-28 19:01] LABS: ALBUMIN,BODY FLUID 0.5 g/dL
[2024-11-28 19:41] LABS: BF LYMPHOCYTE 11 %; BF MACROPHAGE 4; BF MESOTHELIAL 3 %; BF MONOCYTE 2 %; BF NEUTROPHIL 68.0 %; BF OTHER CELLS 12; BF TOTAL CELLS COUNTED 100
[2024-11-28 19:43] LABS: APPEARANCE BODY FLUID CLEAR (CLEAR); COLOR,BODY FLUID YELLOW (LT YELLOW); SPECIMENTYPE,BODY FLUID ASCITES
[2024-11-28 19:44] LABS: TOTAL VOLUME,BODY FLUID 19 mL
[2024-11-28 19:54] LABS: CREATININE 0.5 mg/dL (0.5-1.3); GLOMERULAR FILTR. RATE CALC 123.0 mL/min (>90); GLUCOSE,RANDOM 112.0 mg/dL (70-105); SODIUM SERUM 114.0 mmol/L (136-145); UREA NITROGEN, BLOOD 5.0 mg/dL (7-18)
--- NOTE | 2024-11-28 19:55 | PRN ---
This is a procedure note. Procedure performed: Paracentesis. Intraoperative US Indication: Suspected decompensated liver cirrhosis Fluid overload likely in setting of liver cirrhosis Severe Ascites Reason for procedure: Ascites. Site: left Lower quadrant. Abdomen. Description of procedure: Consent obtained. Consent waived, procedure performed emergently. Hand hygiene. Time out done. Chlorhexidine was used to prepare the skin. Abdominal US was used to localize ascitic fluid and jai best site of puncture. Paracentesis performed with drainage of 3 plus Lt of fluid. Ascitic fluid sent for analysis including cell count, differential, gram stain and culture, protein and albumin. Patient tolerated procedure well. No immediate complications. Albumin 25 % 200 ml given due to large volume paracentesis to prevent hepat orenal syndrome. MARCELINO PALMER Nov 28, 2024 19:55
[2024-11-28] MEDS ORDERED: FAMOTIDINE 20MG VIAL IV SCH (21:00)
--- NOTE | 2024-11-28 21:07 | HMCSR ---
APPROVED REPORT EXAM: Two-dimensional and M-mode echocardiogram with Doppler and color Doppler. Study Details: HTN INDICATION ICD: assess for chf 2D Dimensions RVDd3.7 cmLVEF(%)78.8 (>50%)LVED Vol(simp.)119.0 mL IVSd1.1 (0.7-1.1cm)FS(%)48 %LVES Vol(simp.)60.1 mL LVDd4.8 (3.8-5.6cm)Ao Root(2D)3.3 (2.0-3.7cm)LVEF(%, simp.)49 % PWd0.8 (0.7-1.1cm)LVOT diam1.8 (1.8-2.4cm)LA ESV INDEX (BP)25.55 mL/m2 IVSs1.4 cm LVDs2.5 (2.5-4.0cm) PWs1.7 cm Deformation Strain Apical 419.9 % Apical 215.7 % Apical 319.1 % Global Ojsbwk41.3 % M-Mode Dimensions EPSS0.4 cm LA (MM)4.3 (1.6-4.0cm) Ao Root(MM)2.9 (2.0-3.7cm) Aortic Valve AoV Vmax1.8 m/Shawna Peak GR12.7 mmHgLVOT Vmax1.4 m/s AoV VTI0.3 mAo Mean GR6.9 mmHgLVOT VTI0.26 m KIRA (VMAX)2.01 cm2AVA (VTI) 2.0 cm2 Mitral Valve MV E Vmax68.4 cm/sDECEL Zerq511 ms MV A Vmax76.0 cm/sP 1/2 T59 ms E/A ratio0.9MVA (PHT)3.7 cm2 TDI E/E' Medial7.6E/E' Lateral7.6 Medial E' Peak V8.97 cm/sLateral E' Peak V8.97 cm/s Pulmonary Valve PV Vmax1.8 m/sPV VTI0.33 mPV Mean GR5.2 mmHg PV Peak GR12.3 mmHg Left Ventricle The left ventricle is normal size. There is normal LV segmental wall motion. There is normal left emerald tricular wall thickness. LVEF is >55%. The left ventricular diastolic function is normal. Right Ventricle The right ventricle is normal size. The right ventricular systolic function is normal. Atria The left atrium size is normal. The interatrial septum is intact with no evidence for an atrial septa l defect. The right atrium size is normal. Aortic Valve Aortic valve is trileaflet. The aortic valve is mildly thickened. No aortic regurgitation is present. There is minimal valvular aortic stenosis. Mitral Valve The mitral valve is normal in structure. There is no evidence of significant mitral regurgitation. Th ere is no mitral valve stenosis. Tricuspid Valve The tricuspid valve is normal in structure. There is no tricuspid valve regurgitation noted. Pulmonic Valve The pulmonary valve is normal in structure. There is trace pulmonic valvular regurgitation. Great Vessels The aortic root is normal in size. The ascending aorta is normal in size. The IVC is normal in size a nd collapses >50% with inspiration. Pericardium There is no pericardial effusion. Ascites is present. Conclusion LVEF is >55%. Aortic valve is trileaflet. The aortic valve is mildly thickened.
[2024-11-29] VITALS (23 sets, daily range): BP systolic 94–146; BP diastolic 42–88; PULSE 73–111; RESP 16–97; TEMP 97.8–98.7; O2SAT 97–100
--- NOTE | 2024-11-29 00:03 | CONS ---
REASON FOR CONSULTATION: Renal failure, hyponatremia. REFERRING PHYSICIAN: Zi Urias MD HISTORY OF PRESENT ILLNESS: I did discuss with the primary team. A 54-year-old male with a history of hypertension. The patient with a history of known alcohol use. He presented to the hospital with increasing shortness of breath and anxiety. The patient was found to have significant ascites. The patient's laboratory values revealed renal dysfunction as well as hyponatremia and the patient is being seen for all of the above. The patient does take blood pressure medications although he is unaware of the name of the medication. Family is to provide medications when available and he is being seen for all of the above. PAST MEDICAL HISTORY: Hypertension. PAST SURGICAL HISTORY: No surgeries. SOCIAL HISTORY: He does consume alcohol. FAMILY HISTORY: There is no renal disease in the family. ALLERGIES: TO NONSTEROIDALS. MEDICATIONS: All noted. REVIEW OF SYSTEMS: GENERAL: He is feeling weak and tired. HEENT: No change in vision. No change in hearing. CARDIOVASCULAR: He has no current chest pains or palpitations. PULMONARY: Complains of shortness of breath. GASTROINTESTINAL: Described above. MUSCULOSKELETAL: Complains of weakness. NEUROLOGIC: No history of seizures or focal deficits. PSYCHIATRIC: No history of hallucinations or psychosis. ENDOCRINE: He denies diabetes mellitus or thyroid disease. HEME: History of anemia. No history of malignancy. PHYSICAL EXAMINATION: VITAL SIGNS: Blood pressure 152/95. Pulse is 90. He is afebrile. GENERAL: He is chronically ill, much older than appearing male, lying in bed on the Medical Floor. HEENT: Head is atraumatic. Pupils are equal, round, and reactive to light. Oropharynx is without exudate. Nares clear. NECK: There is no JVP. There is no thyromegaly. No masses. CARDIOVASCULAR: Regular. There is no S3 or S4 gallop. LUNGS: Coarse with equal thoracic movement. ABDOMEN: Soft, nondistended, nontender. He has ascites. EXTREMITIES: Reveal no clubbing or cyanosis. NEUROLOGICAL: He is awake. He is alert. He is oriented. SKIN: Reveals no rash or nodules. BACK: There is no CVA tenderness. No back deformities. LABORATORY DATA: Sodium is 113, potassium 3.5, chloride 81, BUN 3, creatinine 0.5, bilirubin 3.3, albumin 1.9, hemoglobin 9.8, hematocrit 26. Urinalysis is pending. IMPRESSION: Acute and chronic renal failure. Hypervolemia. Hyponatremia. Cirrhosis. Anemia. PLAN: The patient presents with significant hyponatremia in the face of cirrhosis. The patient has no neurological deficits. There is no need for 3% saline at this time. The patient will continue with fluid restriction and we will continue to monitor the chemistries closely. Urine for electrolytes is pending. IV fluids will need to be discontinued as the patient has a history of volume overload. He does have significant anemia. We will check iron levels. The patient's family at the bedside. Multiple questions were all answered. All labs will be repeated in the morning. TID: [id number] RECEIPT: [id number]
--- NOTE | 2024-11-29 00:32 | HMCIMG ---
EXAMINATION: ULTRASOUND OF THE ABDOMEN (LIMITED) WITH COLOR DOPPLER. CLINICAL HISTORY: Assess for cirrhosis. COMPARISON: CT abdomen and pelvis without contrast from the same day. TECHNIQUE: Real-time grayscale ultrasound images of the abdomen. In addition, color Doppler is medically necessary to perform in order to evaluate vascularity and blood flow. FINDINGS: Liver: Bulky in caliber, the right hepatic lobe measures 16.4 cm in the craniocaudal dimension. There is increased echogenicity of the hepatic parenchyma. There is no focal hepatic abnormality or intrahepatic biliary ductal dilatation. There is normal spectral Doppler of the main portal vein (PSV is 10 cm/s). Gallbladder: Within normal limits with normal wall thickness (0.3 cm). No hyperemia or pericholecystic free fluid. There is no cholelithiasis. There is sludge. Common bile duct is normal in caliber, measuring 0.4 cm. Pancreas: Head appears normal in caliber and echotexture. No calcification or dilated pancreatic duct. Body and tail is obscured by overlying bowel gas. The right kidney is normal in caliber, the right kidney measures 10.3 x 5.4 x 3.5 cm in craniocaudal, AP, and transverse dimensions respectively. There is normal renal cortical thickness, and cortical echogenicity. There is no renal calculus or hydronephrosis. There is moderate free fluid in the peritoneal cavity. IMPRESSION: Hepatomegaly with hepatic steatosis. Gallbladder sludge. Moderate ascites. No significant interval changes. /Aamir
[2024-11-29 00:38] LABS: CREATININE 0.6 mg/dL (0.5-1.3); GLOMERULAR FILTR. RATE CALC 116.0 mL/min (>90); GLUCOSE,RANDOM 117.0 mg/dL (70-105); SODIUM SERUM 116.0 mmol/L (136-145); UREA NITROGEN, BLOOD 5.0 mg/dL (7-18)
[2024-11-29 04:49] LABS: NUCLEATED RED BLOOD CELLS 0.0 % (0.0-0.19); PLATELET COUNT (AUTO) 134.0 K/uL (130-400); RED BLOOD CELL COUNT(AUTO) 2.31 MIL/uL (4.50-6.20); RED CELL DISTRIBUTION WIDTH 15.9 % (11.0-15.5); WHITE BLOOD COUNT (AUTO) 10.1 K/uL (4.8-10.8)
[2024-11-29 05:06] LABS: % IRON SATURATION 41.8 % (30-44); ASPARTATE AMINOTRANSFERASE 96.0 U/L (10-37); CREATININE 0.6 mg/dL (0.5-1.3); GLOMERULAR FILTR. RATE CALC 116.0 mL/min (>90); GLUCOSE,RANDOM 107.0 mg/dL (70-105); IRON, SERUM 41.0 mcg/dL (65-175); SODIUM SERUM 117.0 mmol/L (136-145); UREA NITROGEN, BLOOD 6.0 mg/dL (7-18)
[2024-11-29 05:07] LABS: TOTAL PROTEIN, SERUM 5.2 g/dL (6.0-8.3)
[2024-11-29] MEDS: PoTASSium chl 10% ELIXIR 20MEQ 20 MEQ/15 ML UDCUP PO PRN (05:57)
[2024-11-29] MEDS ORDERED: THIAMINE HCL 100 MG/ML 2ML VIAL IVP SCH (09:00)
[2024-11-29] MEDS ORDERED: PHARMACY COMMUNICATION MISC PRN (09:00)
[2024-11-29 09:53] LABS: CREATININE 0.6 mg/dL (0.5-1.3); GLOMERULAR FILTR. RATE CALC 116.0 mL/min (>90); GLUCOSE,RANDOM 145.0 mg/dL (70-105); SODIUM SERUM 116.0 mmol/L (136-145); UREA NITROGEN, BLOOD 5.0 mg/dL (7-18)
--- NOTE | 2024-11-29 10:40 | PN ---
[facility] PROGRESS NOTE Date of Service: Nov 29, 2024 Time of Service: 10:36 SUBJECTIVE: 11/29 patient is seen and examined at bedside, case discussed with the RN, no acute events overnight, the patient is alert oriented x3, however feels mildly dizzy, weak, noted to have mild tremor, BP 102/65, heart rate of 93, afebrile, saturating normal on room air, CBC with a hemoglobin 8.2, hematocrit 22.1, WBC 10.1, with a platelet count of 134, sodium 116, potassium 3.7, BUN of five, creatinine 0.6, calcium 7.2. Iron level of 41, magnesium 1.4. We will start the patient on CIWA protocol, patient is started on sodium chloride tablet 1 g p.o. q.6 hours per Nephrology, continue to follow input and recommendation. Follow critical care input and recommendation. Continue Protonix 40 mg IV b.i.d.. Follow stool occult blood, if positive we will request GI consultation. We will start the patient on Venofer. We will give 2 g of magnesium sulfate IV x1, follow a.m. labs. Follow amylase and lipase levels, follow troponin, patie nt complaining of midepigastric discomfort. REVIEW OF SYSTEMS CONSTITUTIONAL: Denies fevers, chills, or night sweats. No unintentional weight loss reported. Positive for generalized body weakness NEUROLOGICAL: Denies headache, amaurosis fugax, motor weakness, sensory deficit, vertigo/spinning sensation, gait abnormalities, or tremors. ENT: No hearing loss, otalgia, otorrhea, rhinitis, rhinorrhea, hoarseness, or s ore throat. CARDIOVASCULAR: Denies any exertional angina, dyspnea on exertion, orthopnea, paroxysmal nocturnal dyspnea, palpitations, life-threatening arrhythmias, claudication. PULMONARY: Denies any shortness of breath, cough, phlegm/sputum, hemoptysis, pleuritic chest pain. GASTROINTESTINAL: Positive for nausea, vomiting, hematochezia, abdominal distention. Denied any melena, constipation, diarrhea GENITOURINARY: Denies frequency, urgency, nocturia, hematuria or incontinence (Storage/Irritative symptoms.) Low urinary stream, straining to void, urinary intermittency or hesitancy, splitting of the voiding stream, terminal dribbling. ENDOCRINOLOGIC: Denies polyuria, polydipsia, polyphagia or heat/cold intolerances. HEMATOLOGIC: Denies thrombophilia/previous clots, or coagulopathy/bleeding disorders. ONCOLOGIC: Denies personal history of malignancy. DERMATOLOGIC: Denies rashes or pruritus. PSYCHIATRIC: Denies any suicidal or homicidal ideation. Denies hallucinations. PHYSICAL EXAM GENERAL APPEARANCE: The patient is awake, alert, and oriented, in no acute cardiopulmonary distress. NEUROLOGICAL: Cranial nerves II-XII grossly intact. Motor is 5/5 in bilateral upper and lower extremities proximal to distal. No sensory deficits. HEENT: Face is symmetric. Pupils are equal and reactive. Extraocular movements are intact. NECK: Supple. No JVD. No thyromegaly. No submental, submandibular, pre- /postauricular, occipital or supraclavicular lymphadenopathy. CHEST: Normal chest expansion. No Telemetry. LUNGS: Absence of any rales, rhonchi or any wheezing. CARDIOVASCULAR: Regular. S1 and S2 normal. No appreciable rubs, murmurs or gallops. ABDOMEN: Soft, patient has abdominal distention noted. There is no guarding, no rigidity noted : Deferred. No Espin[place]. EXTREMITIES: 2+ pitting edema in the lower extremity bilaterally and not cyanotic. No clubbing. Good capillary refill. SKIN: No skin breakdown. Vital Signs (last 8hr) Date Time Temp Pulse Resp B/P (MAP) Pulse Ox O2 Delivery O2 Flow Rate FiO2 11/29/24 09:45 93 24 102/65 99 Room Air 11/29/24 09:00 101 22 108/56 98 Room Air 11/29/24 08:00 98.6 111 28 126/75 99 Room Air 11/29/24 08:00 98 Room Air* 0 11/29/24 04:00 98.8 73 17 108/66 98 Room Air 11/29/24 04:00 97 Room Air* 0 11/29/24 03:00 76 18 104/50 97 LABS: Laboratory: Test 11/29/24 09:38 11/29/24 04:13 11/28/24 17:10 11/28/24 15:02 Range/Units Sodium Level 116 L 136-145 mmol/L Potassium Level 3.7 3.5-5.1 mmol/L Chloride Level 85 *L 101-111 mmol/L Carbon Dioxide Level 27 21-32 mmol/L Blood Urea Nitrogen 5 L 7-18 mg/dL Creatinine 0.6 0.5-1.3 mg/dL Glomerular Filtration Rate Calc 116 >90 mL/min Random Glucose 145 H 70-105 mg/dL Total Calcium 7.2 L 8.5-10.1 mg/dL Troponin I High Sensitivity 4 4-75 ng/L Amylase Level 64 25-115 U/L Lipase 127 H 16-77 U/L White Blood Count 10.1 4.8-10.8 K/uL Red Blood Count 2.31 L 4.50-6.20 MIL/uL Hemoglobin 8.2 L 14.0-18.0 g/dL Hematocrit 22.1 L 42-54 % Mean Corpuscular Volume 95.7 79-99 fL Mean Corpuscular Hemoglobin 35.5 H 27.0-33.0 pg Mean Corpuscular Hemoglobin Concent 37.1 H 32.0-36.0 g/dL Red Cell Distribution Width 15.9 H 11.0-15.5 % Platelet Count 134 130-400 K/uL Mean Platelet Volume 9.1 7.5-10.5 fL Nucleated Red Blood Cells 0.0 0.0-0.19 % Magnesium Level 1.40 L 1.80-2.40 mg/dL Iron Level 41 L 65-175 mcg/dL Total Iron Binding Capacity 98 L 250-450 mcg/dL Percent Iron Saturation 41.8 30-44 % Total Bilirubin 2.5 #H 0.2-1.0 mg/dL Aspartate Amino Transf (AST/SGOT) 96 H 10-37 U/L Alanine Aminotransferase (ALT/SGPT) 28 12-78 U/L Alkaline Phosphatase 187 H 50-136 U/L Total Protein 5.2 L 6.0-8.3 g/dL Albumin 1.6 L 3.5-5.0 g/dL Urine Color YELLOW YELLOW Urine Appearance CLEAR CLEAR Urine pH 6.5 5.0-8.0 Urine Specific [place] 1.004 1.001-1.031 Urine Protein NEGATIVE NEGATIVE mg/dL Urine Glucose (UA) NEGATIVE NEGATIVE mg/dL Urine Ketones 5 H NEGATIVE mg/dL Urine Occult Blood NEGATIVE NEGATIVE Urine Nitrate NEGATIVE NEGATIVE Urine Bilirubin NEGATIVE NEGATIVE mg/dL Urine Urobilinogen 2.0 H 0.2-1.0 mg/dL Urine Leukocyte Esterase NEGATIVE NEGATIVE Pattie/uL Urine Random Sodium < 13 L 40-220 mmol/l Urine Opiates Screen NEGATIVE NEGATIVE Urine Barbiturates Screen NEGATIVE NEGATIVE Urine Phencyclidine Screen NEGATIVE NEGATIVE Urine Amphetamines Screen NEGATIVE NEGATIVE Urine Benzodiazepines Screen NEGATIVE NEGATIVE Urine Cocaine Screen NEGATIVE NEGATIVE Urine Marijuana (THC) Screen NEGATIVE NEGATIVE Body Fluid Source ASCITES Body Fluid Volume 19 mL Body Fluid Color YELLOW LT YELLOW Body Fluid Supernatant Appearance CLEAR CLEAR Body Fluid WBC 82 /cu. mm. Body Fluid RBC 155 /cu. mm. Body Fluid Neutrophils 68.0 % Body Fluid Lymphocytes 11 % Body Fluid Monocytes % 2 % Body Fluid Macrophages (%) 4 Body Fluid Mesothelial Cells (%) 3 % Body Fluid Other Cells (%) 12 Body Fluid Total Protein 1.5 g/dL Body Fluid Albumin 0.5 g/dL Test 11/28/24 13:46 11/28/24 10:28 11/28/24 09:05 11/28/24 07:53 Range/Units Ammonia 13 11-32 umol/L Prothrombin Time 15.1 H 9.6-11.6 SEC Prothromb Time International Ratio 1.48 H 0.85-1.15 Activated Partial Thromboplast Time 42.4 H 26.3-35.5 SEC Hemoglobin A1c 4.8 4.0-6.0 % Estimated Average Glucose (eAG) 91 70-126 mg/dL Direct Bilirubin 2.3 H 0.0-0.3 mg/dL C-Reactive Protein, Quantitative 36.80 H 0.5-3.0 mg/L Thyroid Stimulating Hormone (TSH) 3.61 0.36-3.74 uIU/mL Procalcitonin 0.17 0.05-0.5 ng/mL Test 11/28/24 07:33 Range/Units Immature Granulocyte % (Auto) 1.0 0-1 % Neutrophils (%) (Auto) 80.7 H 40.0-77.0 % Lymphocytes (%) (Auto) 7.9 L 21.0-51.0 % Monocytes (%) (Auto) 8.4 3.0-13.0 % Eosinophils (%) (Auto) 1.6 0.0-8.0 % Basophils (%) (Auto) 0.4 0.0-5.0 % Neutrophils # (Auto) 10.8 H 1.8-7.7 K/uL Lymphocytes # (Auto) 1.1 1.0-4.8 K/uL Monocytes # (Auto) 1.1 H 0.1-1.0 K/uL Eosinophils # (Auto) 0.22 0.00-0.70 K/uL Basophils # (Auto) 0.05 0.00-0.20 K/uL Absolute Immature Granulocyte (auto 0.13 0-1 K/uL White Cell Morphology Comment See comments Red Blood Cell Morphology See comments Current Medications Medications (Trade) Dose Ordered Sig/Ronak Route PRN Reason Start Time Stop Time Status Last Admin Dose Admin Acetaminophen (TYLenol 500MG TAB) 500 mg Q6H PRN PO MILD PAIN (1-3) 11/28/24 09:30 12/28/24 09:29 11/29/24 07:53 500 MG Ceftriaxone Sodium (ROCEphine 1G INJ) 1 gm Q24H IVPB 11/28/24 09:30 12/08/24 09:29 11/29/24 09:51 1 GM Chlordiazepoxide HCl (LIBrium 25 MG CAP) 25 mg Q2H PRN PO ALCOHOL WITHDRAWAL PROTOCOL 11/29/24 09:00 12/06/24 08:59 11/29/24 09:51 25 MG Chlordiazepoxide HCl (LIBrium 25 MG CAP) 50 mg Q1H PRN PO ALCOHOL WITHDRAWAL PROTOCOL 11/29/24 09:00 12/06/24 08:59 Famotidine (Pepcid 20mg Vial) 20 mg BID IV 11/28/24 21:00 11/28/24 09:59 DC Folic Acid (FOLic ACID 1 MG TABLET) 1 mg DAILY PO 11/29/24 09:00 12/29/24 08:59 11/29/24 07:52 1 MG Magnesium Sulfate 50 ml @ 0 mls/hr PROTOCOL PRN IV hypomagnesium 11/28/24 09:30 12/28/24 09:29 11/29/24 05:58 25 MLS/HR Ondansetron HCl (zoFRAN 4MG INJ) 4 mg Q6H PRN IVP NAUSEA/VOMITING 11/28/24 18:00 12/28/24 17:59 Pantoprazole Sodium (PROTonix 40MG INJ) 40 mg BID IVP 11/28/24 10:00 12/28/24 09:59 11/29/24 07:52 40 MG Pharmacy Profile Note (Pharmacy Communication) 1 each PROTOCOL PRN MISC ETOH Withdrawal Score changes 11/29/24 09:00 12/06/24 08:59 Potassium Chloride 100 ml @ 100 mls/hr AD PRN IV POTASSIUM PROTOCOL 11/28/24 10:30 12/28/24 10:29 Potassium Chloride (K-Dur/Klor-Con 20meq) 20 meq AD PRN PO POTASSIUM PROTOCOL 11/28/24 10:30 12/28/24 10:29 Potassium Chloride (KCl 10% Elixir 20meq/15ml) 20 meq AD PRN PO POTASSIUM PROTOCOL 11/28/24 10:30 12/28/24 10:29 11/29/24 07:53 20 MEQ Sodium Chloride 1,000 ml @ 125 mls/hr Q8H IV 11/28/24 11:30 11/28/24 11:56 DC 11/28/24 11:37 125 MLS/HR Sodium Chloride (Sodium Chloride) 1,000 mg Q6H PO 11/28/24 14:00 12/28/24 13:59 11/29/24 07:52 1,000 MG Thiamine HCl (Vitamin B-1) 100 mg DAILY IVP 11/29/24 09:00 11/28/24 14:03 DC Thiamine HCl (Vitamin B-1) 300 mg Q8H IVP 11/28/24 14:30 12/29/24 14:29 11/29/24 05:58 300 MG DIAGNOSTICS / RADIOLOGY: [ ] ASSESSMENT: Severe hyponatremia Suspected decompensated liver cirrhosis POA Alcohol use Fluid overload likely in setting of liver cirrhosis Ascites Anemia Intermittent hematochezia Hypertension Hypomagnesemia PLAN: patient is seen and examined at bedside, case discussed with the RN, no acute events overnight, the patient is alert oriented x3, however feels mildly dizzy, weak, noted to have mild tremor, BP 102/65, heart rate of 93, afebrile, saturating normal on room air, CBC with a hemoglobin 8.2, hematocrit 22.1, WBC 10.1, with a platelet count of 134, sodium 116, potassium 3.7, BUN of five, creatinine 0.6, calcium 7.2. Iron level of 41, magnesium 1.4. We will start the patient on CIWA protocol, patient is started on sodium chloride tablet 1 g p.o. q.6 hours per Nephrology, continue to follow input and recommendation. Follow critical care input and recommendation. Continue Protonix 40 mg IV b.i.d.. Follow stool occult blood, if positive we will request GI consultation. We will start the patient on Venofer. We will give 2 g of magnesium sulfate IV x1, follow a.m. labs. Follow amylase and lipase levels, follow troponin, patient complaining of midepigastric discomfort. NEURO: Minimize central acting medications as possible. Fall Precautions. Well lighted room through the day and minimize interruptions through the night to prevent acute delirium. PULMONARY: Supplemental 02 as needed BiPAP as necessary, for respiratory distress Titrate Fio2 to keep Spo2 > or = 90% DuoNebs and CPT as needed IS hourly while awake for pulmonary hygiene prn Out of bed to chair as tolerated Maintain aspiration precautions at all times CARDIOVASCULAR: Follow hemodynamics. Vital signs per facility protocol GI & NUTRITION: Continue nutritional support Aspirations precautions Prokinetic agents and laxatives as needed KIDNEYS & ELECTROLYTES: Strict monitoring of intake and output Daily weights Avoid nephrotoxic agents Monitor electrolytes and replace as needed Goal urine output of 30mL/hr or 0.5mL/kg/hr Medications to be dosed according to renal function. Avoid contrast if possible ENDOCRINE: Maintain blood glucose between 100-180 at all times. Insulin sliding scale for blood glucose management Hypoglycemia and hyperglycemia protocol in place INFECTIOUS DISEASE: Trend temperature, WBC and procalcitonin level Follow cultures, deescalate antibiotics as soon as possible. Panculture if new onset fever HEMATOLOGY & COAGULATION: Monitor H&H. Keep Hgb > 7 Transfuse 1 unit of PRBC for Hgb < 7 Transfuse 1 pack of platelets of platelets < 20, 000 Watch for any signs and symptoms of bleeding SKIN: Pressure ulcer prevention per facility protocol Specialty mattress as needed ORTHO/REHAB Continue PT/OT PRN: MEDICATIONS Tylenol 650 mg po every 4 hrs for fever zofran 4 mg IV every 6 hrs for n/v Hydralazine 5 mg IV every 4 hrs systolic pressure > 160 bowel regiment: lactulose 20 gm PO BID PRN constipation Supportive measures: Continue GI and DVT prophylaxis All questions answered time spent: > 35 min NELDA GRIJALVA MD Nov 29, 2024 10:39
[2024-11-29] MEDS ORDERED: MAGNESIUM 2GM PREMIX 50ML 50 ML IV SCH (11:00)
--- NOTE | 2024-11-29 11:20 | NUR ---
DCP: HOME SW met with pt and his son Parth German [phone] and pt's daughter Ximena German [phone]. Pt rents a home in home of friend Violeta Reece [phone]. Pt works at [employer], remains active, independent of ADLS, uses no DME or in home care services prior to admission. PCP is Soren Moya at [facility] for medical care and meds. Pt denies dc needs and will return home at in Addendum: 11/29/24 at 1124 by EDILBERTO REYEZ Amended: Links added.
--- NOTE | 2024-11-29 11:22 | PN ---
[facility] PROGRESS NOTE Date Patient Seen: Today, November Supervising Physician: Dr Miko De La Torre ASSESSMENT: Severe hyponatremia Suspected decompensated liver cirrhosis POA Alcohol use Fluid overload likely in setting of liver cirrhosis Ascites Anemia Intermittent hematochezia Hypertension Hypomagnesemia HPI: 54-year-old male with past medical history of hypertension who presented to the hospital secondary to generalized body weakness, abdominal distention and lower extremity edema. Patient states for the past one week he has been feeling weak in his lower extremities. He has not been able to ambulate very much. This also noted nausea and vomiting with associated abdominal distention. Denies any fever, chills, shortness of breath, chest pain, cough, abdominal pain. Denied any changes in his bowel movement. He has noted some blood with his bowel movement. His last recent bowel movement was negative. Denies any melena but has noted some hematochezia. Denied any dysuria, changes in his urination. He has had decreased appetite for the past few days. He has been tolerating liquids and solids at home. Denies any dysphagia. Denies any falls, syncopal episode. He has noted weight gain recently. He is alert oriented x4 and is able to answer questions and follow conversations. Patient was found to have large volume abdominal ascites, is sodium is 113, chloride 80, and LFTs elevated. Admitted under the hospitalist service requesting ICU for severe hyponatremia. Critical Care consulted for ICU medical management. Interval history: Patient undergoing paracentesis yesterday with removal of 3 L, he reports improvement in his symptoms, decreased abdominal pain Denies any chest pain or shortness of breath Patient was seen and examined sitting comfortably at bedside chair, he is alert and oriented, watching TV and talking on the phone Patient reports improvement in his swelling to the lower extremities Nursing reports no acute events overnight Patient's abdominal fluid transudate, sag greater than or equal to 1.1 Plan: Continue to correct sodium levels, currently on salt tabs, sodium has gone from 113-117 Restricting fluids Telemetry Specialty recs Follow cultures CIWA protocol, thiamine and folate Code Status: Full Resuscitation GI & DVT Prophylaxis REVIEW OF SYSTEMS: 12 point ROS reviewed , only + as per above PHYSICAL EXAM: GENERAL: alert, weak, awake oriented x 3 HEENT: EOMI, Sclera non icteric, moist mucosa NECK: Supple, no JVD, trachea midline LUNGS: Clear breath sounds bilaterally. No wheezes HEART: Regular rate and rhythm. Normal S1 and S2, without murmurs ABD: Obese Abdomen soft, nontender. Bowel sounds present EXT: No clubbing cyanosis or edema. NEURO: Alert and oriented to person, follows commands PLAN GI & NUTRITION: Continue nutritional support Aspirations precautions Prokinetic agents and laxatives as needed KIDNEYS & ELECTROLYTES: Strict monitoring of intake and output NEURO: Minimize central acting medications as possible. Fall Precautions. Well lighted room through the day and minimize interruptions through the night to prevent acute delirium. PULMONARY: Supplemental 02 as needed Titrate Fio2 to keep Spo2 > or = 90% DuoNebs and CPT as needed CARDIOVASCULAR: Follow hemodynamics. Titrate vasopressor to keep MAP >65 or systolic blood pressure >95mmHg ENDOCRINE: Maintain blood glucose between 100-180 at all times. Insulin sliding scale for blood glucose management RENAL: Avoid nephrotoxic agents INFECTIOUS DISEASE: Trend temperature. Rubin-culture if febrile. HEMATOLOGY & COAGULATION: Monitor H&H. Keep Hgb > 7 Transfuse 1 unit of PRBC for Hgb < 7 Watch for any signs and symptoms of bleeding SKIN: Pressure ulcer prevention per facility protocol Total critical care time spent greater than 40 minutes, this excludes any procedures performed or any time spent in educational or teaching. ATTESTATION BY PHYSICIAN The patient has been seen and evaluated, the case has been discussed with the PA, I agree with the clinical findings and plan of care. Vitals/Labs Vital Signs Date Time Temp Pulse Resp B/P (MAP) Pulse Ox O2 Delivery O2 Flow Rate FiO2 11/29/24 09:45 93 24 102/65 99 Room Air 11/29/24 08:00 98.6 11/29/24 08:00 0 21 Laboratory Tests 11/28/24 13:46 11/28/24 19:37 11/29/24 00:20 11/29/24 04:13 11/29/24 09:38 Medications Current Medications Famotidine 20 mg BID IV; Start 11/28/24 at 21:00; Stop 11/28/24 at 09:59; Status DC Ceftriaxone Sodium 1 gm Q24H IVPB Last administered on 11/29/24at 09:51; Start 11/28/24 at 09:30; Stop 12/08/24 at 09:29 Acetaminophen 500 mg Q6H PRN PO Last administered on 11/29/24at 07:53; Start 11/28/24 at 09:30; Stop 12/28/24 at 09:29 Thiamine HCl 100 mg DAILY IVP; Start 11/29/24 at 09:00; Stop 11/28/24 at 14:03; Status DC Folic Acid 1 mg DAILY PO Last administered on 11/29/24at 07:52; Start 11/29/24 at 09:00; Stop 12/29/24 at 08:59 Magnesium Sulfate 50 ml @ 0 mls/hr PROTOCOL PRN IV Last administered on 11/29/24at 05:58; Start 11/28/24 at 09:30; Stop 12/28/24 at 09:29 Pantoprazole Sodium 40 mg BID IVP Last administered on 11/29/24at 07:52; Start 11/28/24 at 10:00; Stop 12/28/24 at 09:59 Potassium Chloride 100 ml @ 100 mls/hr AD PRN IV; Start 11/28/24 at 10:30; Stop 12/28/24 at 10:29 Potassium Chloride 20 meq AD PRN PO Last administered on 11/29/24at 07:53; Start 11/28/24 at 10:30; Stop 12/28/24 at 10:29 Potassium Chloride 20 meq AD PRN PO; Start 11/28/24 at 10:30; Stop 12/28/24 at 10:29 Sodium Chloride 1,000 ml @ 125 mls/hr Q8H IV Last administered on 11/28/24at 11:37; Start 11/28/24 at 11:30; Stop 11/28/24 at 11:56; Status DC Sodium Chloride 1,000 mg Q6H PO Last administered on 11/29/24at 07:52; Start 11/28/24 at 14:00; Stop 12/28/24 at 13:59 Thiamine HCl 300 mg Q8H IVP Last administered on 11/29/24at 05:58; Start 11/28/24 at 14:30; Stop 12/29/24 at 14:29 Ondansetron HCl 4 mg STK-MED ONCE .ROUTE Last administered on 11/28/24at 17:56; Start 11/28/24 at 17:50; Stop 11/28/24 at 17:50; Status DC Ondansetron HCl 4 mg Q6H PRN IVP; Start 11/28/24 at 18:00; Stop 12/28/24 at 17:59 Chlordiazepoxide HCl 25 mg Q2H PRN PO Last administered on 11/29/24at 09:51; Start 11/29/24 at 09:00; Stop 12/06/24 at 08:59 Chlordiazepoxide HCl 50 mg Q1H PRN PO; Start 11/29/24 at 09:00; Stop 12/06/24 at 08:59 Pharmacy Profile Note 1 each PROTOCOL PRN MISC; Start 11/29/24 at 09:00; Stop 12/06/24 at 08:59 Magnesium Sulfate 50 ml @ 0 mls/hr PROTOCOL IV; Start 11/29/24 at 11:00; Stop 11/29/24 at 10:44; Status MARCELINO BENITEZ Nov 29, 2024 11:22
--- NOTE | 2024-11-29 15:51 | CONS ---
GASTROENTEROLOGY CONSULTATION NOTE Date of Consultation: Nov 29, 2024 Time of Consultation: 15:48 History of Present Illness: 54-year-old male with past medical history of hypertension who presents to the emergency room for evaluation of worsening generalized weakness, abdominal distention associated with nausea and vomiting and lower extremity edema. We are consulted for anemia. CT abdomen reveals diffuse fatty infiltration of liver, large ascites with diffuse omental mesenteric fat stranding. Review of Systems: CONSTITUTIONAL: No malaise or change in sensation of wellbeing. ENMT: No rhinorrhea, otorrhea, sinus pain, ear ache. CARDIOVASCULAR: No angina, palpitations, orthopnea or paroxysmal dyspnea. RESPIRATORY: No SOB. GASTROINTESTINAL: No abdominal pain, nausea, vomiting, diarrhea, hematemesis, melena or change in the patient's habitual bowel movements consistency/number. GENITOURINARY: No dysuria, hematuria or change in bladder continence. MUSCULOSKELETAL: No new muscle pain or decrease in muscular strength. No new joint swelling, redness or tenderness. SKIN: No new rash. Past Medical History: Coded Allergies: NSAIDS (Non-Steroidal Anti-Inflamma (Unverified Allergy, Intermediate, 06/09/24) aspirin (Unverified Allergy, Intermediate, 06/09/24) ibuprofen (Unverified Allergy, Intermediate, 06/09/24) Physical Exam: GEN: Awake, alert, oriented in person, time and place, and in no acute distress. HEENT:Oral pharyngeal mucosa is pink, moist and within normal limits. CHEST: Lung auscultation revealed normal breath sounds bilaterally. CARDIAC:Heart sounds are regular. ABD: Soft, non-tender and not distended. No peritoneal signs on palpation. Normal bowel sounds. EXT: No cyanosis or clubbing. No edema. SKIN: Intact. No rashes. JOINTS: No evidence of synovitis or acute arthritis. NEURO: Alert and oriented to name, place and person. No focal motor deficits. Normal speech. Gait is normal. Vital Sign (Last 24 Hours) 11/29/24 11/29/24 12:00 13:45 Temp 98.4 Pulse 102 Resp 23 B/P (MAP) 117/75 Pulse Ox 100 O2 Delivery Room Air O2 Flow Rate 0 FiO2 21 Intake & Output (last 24hrs) 11/28/24 11/28/24 11/29/24 15:00 23:00 07:00 Intake Total 381.0 ml 153.0 ml 25.0 ml Output Total 3000 ml 400 ml Balance -2619.0 ml 153.0 ml -375.0 ml Laboratory: [ ] Laboratory: Test 11/29/24 09:38 11/29/24 04:13 11/28/24 17:10 11/28/24 15:02 Range/Units Sodium Level 116 L 136-145 mmol/L Potassium Level 3.7 3.5-5.1 mmol/L Chloride Level 85 *L 101-111 mmol/L Carbon Dioxide Level 27 21-32 mmol/L Blood Urea Nitrogen 5 L 7-18 mg/dL Creatinine 0.6 0.5-1.3 mg/dL Glomerular Filtration Rate Calc 116 >90 mL/min Random Glucose 145 H 70-105 mg/dL Total Calcium 7.2 L 8.5-10.1 mg/dL Troponin I High Sensitivity 4 4-75 ng/L Amylase Level 64 25-115 U/L Lipase 127 H 16-77 U/L White Blood Count 10.1 4.8-10.8 K/uL Red Blood Count 2.31 L 4.50-6.20 MIL/uL Hemoglobin 8.2 L 14.0-18.0 g/dL Hematocrit 22.1 L 42-54 % Mean Corpuscular Volume 95.7 79-99 fL Mean Corpuscular Hemoglobin 35.5 H 27.0-33.0 pg Mean Corpuscular Hemoglobin Concent 37.1 H 32.0-36.0 g/dL Red Cell Distribution Width 15.9 H 11.0-15.5 % Platelet Count 134 130-400 K/uL Mean Platelet Volume 9.1 7.5-10.5 fL Nucleated Red Blood Cells 0.0 0.0-0.19 % Magnesium Level 1.40 L 1.80-2.40 mg/dL Iron Level 41 L 65-175 mcg/dL Total Iron Binding Capacity 98 L 250-450 mcg/dL Percent Iron Saturation 41.8 30-44 % Total Bilirubin 2.5 #H 0.2-1.0 mg/dL Aspartate Amino Transf (AST/SGOT) 96 H 10-37 U/L Alanine Aminotransferase (ALT/SGPT) 28 12-78 U/L Alkaline Phosphatase 187 H 50-136 U/L Total Protein 5.2 L 6.0-8.3 g/dL Albumin 1.6 L 3.5-5.0 g/dL Urine Color YELLOW YELLOW Urine Appearance CLEAR CLEAR Urine pH 6.5 5.0-8.0 Urine Specific Beatty 1.004 1.001-1.031 Urine Protein NEGATIVE NEGATIVE mg/dL Urine Glucose (UA) NEGATIVE NEGATIVE mg/dL Urine Ketones 5 H NEGATIVE mg/dL Urine Occult Blood NEGATIVE NEGATIVE Urine Nitrate NEGATIVE NEGATIVE Urine Bilirubin NEGATIVE NEGATIVE mg/dL Urine Urobilinogen 2.0 H 0.2-1.0 mg/dL Urine Leukocyte Esterase NEGATIVE NEGATIVE Pattie/uL Urine Random Sodium < 13 L 40-220 mmol/l Urine Opiates Screen NEGATIVE NEGATIVE Urine Barbiturates Screen NEGATIVE NEGATIVE Urine Phencyclidine Screen NEGATIVE NEGATIVE Urine Amphetamines Screen NEGATIVE NEGATIVE Urine Benzodiazepines Screen NEGATIVE NEGATIVE Urine Cocaine Screen NEGATIVE NEGATIVE Urine Marijuana (THC) Screen NEGATIVE NEGATIVE Body Fluid Source ASCITES Body Fluid Volume 19 mL Body Fluid Color YELLOW LT YELLOW Body Fluid Supernatant Appearance CLEAR CLEAR Body Fluid WBC 82 /cu. mm. Body Fluid RBC 155 /cu. mm. Body Fluid Neutrophils 68.0 % Body Fluid Lymphocytes 11 % Body Fluid Monocytes % 2 % Body Fluid Macrophages (%) 4 Body Fluid Mesothelial Cells (%) 3 % Body Fluid Other Cells (%) 12 Body Fluid Total Protein 1.5 g/dL Body Fluid Albumin 0.5 g/dL Test 11/28/24 13:46 11/28/24 10:28 11/28/24 09:05 11/28/24 07:53 Range/Units Ammonia 13 11-32 umol/L Prothrombin Time 15.1 H 9.6-11.6 SEC Prothromb Time International Ratio 1.48 H 0.85-1.15 Activated Partial Thromboplast Time 42.4 H 26.3-35.5 SEC Hemoglobin A1c 4.8 4.0-6.0 % Estimated Average Glucose (eAG) 91 70-126 mg/dL Direct Bilirubin 2.3 H 0.0-0.3 mg/dL C-Reactive Protein, Quantitative 36.80 H 0.5-3.0 mg/L Thyroid Stimulating Hormone (TSH) 3.61 0.36-3.74 uIU/mL Procalcitonin 0.17 0.05-0.5 ng/mL Test 11/28/24 07:33 Range/Units Immature Granulocyte % (Auto) 1.0 0-1 % Neutrophils (%) (Auto) 80.7 H 40.0-77.0 % Lymphocytes (%) (Auto) 7.9 L 21.0-51.0 % Monocytes (%) (Auto) 8.4 3.0-13.0 % Eosinophils (%) (Auto) 1.6 0.0-8.0 % Basophils (%) (Auto) 0.4 0.0-5.0 % Neutrophils # (Auto) 10.8 H 1.8-7.7 K/uL Lymphocytes # (Auto) 1.1 1.0-4.8 K/uL Monocytes # (Auto) 1.1 H 0.1-1.0 K/uL Eosinophils # (Auto) 0.22 0.00-0.70 K/uL Basophils # (Auto) 0.05 0.00-0.20 K/uL Absolute Immature Granulocyte (auto 0.13 0-1 K/uL White Cell Morphology Comment See comments Red Blood Cell Morphology See comments Current Medications Medications (Trade) Dose Ordered Sig/Ronak Route PRN Reason Start Time Stop Time Status Last Admin Dose Admin Acetaminophen (TYLenol 500MG TAB) 500 mg Q6H PRN PO MILD PAIN (1-3) 11/28/24 09:30 12/28/24 09:29 11/29/24 07:53 500 MG Ceftriaxone Sodium (ROCEphine 1G INJ) 1 gm Q24H IVPB 11/28/24 09:30 12/08/24 09:29 11/29/24 09:51 1 GM Chlordiazepoxide HCl (LIBrium 25 MG CAP) 25 mg Q2H PRN PO ALCOHOL WITHDRAWAL PROTOCOL 11/29/24 09:00 12/06/24 08:59 11/29/24 09:51 25 MG Chlordiazepoxide HCl (LIBrium 25 MG CAP) 50 mg Q1H PRN PO ALCOHOL WITHDRAWAL PROTOCOL 11/29/24 09:00 12/06/24 08:59 Famotidine (Pepcid 20mg Vial) 20 mg BID IV 11/28/24 21:00 11/28/24 09:59 DC Folic Acid (FOLic ACID 1 MG TABLET) 1 mg DAILY PO 11/29/24 09:00 12/29/24 08:59 11/29/24 07:52 1 MG Magnesium Sulfate 50 ml @ 0 mls/hr PROTOCOL IV 11/29/24 11:00 11/29/24 10:44 DC Magnesium Sulfate 50 ml @ 0 mls/hr PROTOCOL PRN IV hypomagnesium 11/28/24 09:30 12/28/24 09:29 11/29/24 05:58 25 MLS/HR Ondansetron HCl (zoFRAN 4MG INJ) 4 mg Q6H PRN IVP NAUSEA/VOMITING 11/28/24 18:00 12/28/24 17:59 Pantoprazole Sodium (PROTonix 40MG INJ) 40 mg BID IVP 11/28/24 10:00 12/28/24 09:59 11/29/24 07:52 40 MG Pharmacy Profile Note (Pharmacy Communication) 1 each PROTOCOL PRN MISC ETOH Withdrawal Score changes 11/29/24 09:00 12/06/24 08:59 Potassium Chloride 100 ml @ 100 mls/hr AD PRN IV POTASSIUM PROTOCOL 11/28/24 10:30 12/28/24 10:29 Potassium Chloride (K-Dur/Klor-Con 20meq) 20 meq AD PRN PO POTASSIUM PROTOCOL 11/28/24 10:30 12/28/24 10:29 Potassium Chloride (KCl 10% Elixir 20meq/15ml) 20 meq AD PRN PO POTASSIUM PROTOCOL 11/28/24 10:30 12/28/24 10:29 11/29/24 07:53 20 MEQ Sodium Chloride 1,000 ml @ 125 mls/hr Q8H IV 11/28/24 11:30 11/28/24 11:56 DC 11/28/24 11:37 125 MLS/HR Sodium Chloride (Sodium Chloride) 1,000 mg Q6H PO 11/28/24 14:00 12/28/24 13:59 11/29/24 13:33 1,000 MG Thiamine HCl (Vitamin B-1) 100 mg DAILY IVP 11/29/24 09:00 11/28/24 14:03 DC Thiamine HCl (Vitamin B-1) 300 mg Q8H IVP 11/28/24 14:30 12/29/24 14:29 11/29/24 13:33 300 MG Diagnostics / Radiology: [COPY/PASTE HERE IF NO REPORTS PLEASE DELETE SECTION] Assessment: Liver Cirrhosis Ascites Anemia Plan: Recommend therapeutic paracentesis. If more than 5 liters are removed, please give albumin 50 g IV Send ascites fluid for cell count with differential, albumin, total protein, cultures,and cytology Order CMP same day as paracentesis Based on the ascites results, then calculate SAAG (serum to ascites albumin gradient) = Serum albumin level ascites albumin level. If the SAAG is >1.1 g/dL, then the ascites is due to portal hypertension (liver diseases or cardiac diseases listed above). If the SAAG <1.1 g/dL, then the ascites is due to other causes (malignancy, TB, nephrotic syndrome, etc) If the total ascites protein is < 2.5 g/dL, then the high SAAG ascites is to due to liver disease. If the total ascites protein is > 2.5 g/dL, then the high SAAG ascites is due to cardiac causes. Once the patient is stable, please start diuretics with furosemide 40 mg po daily and spironolactone 100 mg po daily Recommend low sodium diet < 2000 mg per day. No need to restrict fluid intake in most cases 1Avoid SAYDA inhibitors and ARBs (angiotensin II receptor blockers) Thanks you for allowing us to participate in the care of this patient! HILARY TUTTLEP Nov 29, 2024 15:51 FORTINO PRICE NP Nov 30, 2024 18:46
[2024-11-29 16:12] LABS: CREATININE 0.6 mg/dL (0.5-1.3); GLOMERULAR FILTR. RATE CALC 116.0 mL/min (>90); GLUCOSE,RANDOM 109.0 mg/dL (70-105); SODIUM SERUM 116.0 mmol/L (136-145); UREA NITROGEN, BLOOD 6.0 mg/dL (7-18)
[2024-11-29 20:04] LABS: CREATININE 0.6 mg/dL (0.5-1.3); GLOMERULAR FILTR. RATE CALC 116.0 mL/min (>90); GLUCOSE,RANDOM 108.0 mg/dL (70-105); SODIUM SERUM 115.0 mmol/L (136-145); UREA NITROGEN, BLOOD 7.0 mg/dL (7-18)
[2024-11-30] VITALS (20 sets, daily range): BP systolic 86–148; BP diastolic 47–96; PULSE 68–116; RESP 12–24; TEMP 97.7–99.8; O2SAT 99–100
[2024-11-30 00:51] LABS: CREATININE 0.6 mg/dL (0.5-1.3); GLOMERULAR FILTR. RATE CALC 116.0 mL/min (>90); GLUCOSE,RANDOM 99.0 mg/dL (70-105); SODIUM SERUM 117.0 mmol/L (136-145); UREA NITROGEN, BLOOD 5.0 mg/dL (7-18)
--- NOTE | 2024-11-30 01:02 | PN ---
FOLLOWUP PROGRESS NOTE SUBJECTIVE: 54-year-old male with a history of cirrhosis. He initially presented with failure to thrive and was found to have significant hyponatremia. The patient's workup is consistent with hypervolemia, hyponatremia secondary to the cirrhosis. He remains on fluid restriction. Serum sodium is slowly improving and he is being seen as a followup visit for all of the above. REVIEW OF SYSTEMS: GENERAL: He is feeling somewhat improved. HEENT: No change in vision. No change in hearing. CARDIOVASCULAR: There is no current chest pain or palpitations. PULMONARY: Chronic shortness of breath. GASTROINTESTINAL: He is tolerating a diet. MUSCULOSKELETAL: Complains of weakness. PHYSICAL EXAMINATION: VITAL SIGNS: Blood pressure 126/75. Pulse 70. He is afebrile. GENERAL: Chronically ill male, much older than appearing. HEENT: Head is atraumatic. Pupils are equal, round, reactive to light. Oropharynx is without exudate. Nares clear. NECK: There is no JVP. There is no thyromegaly, no mass. CARDIOVASCULAR: Regular. There is no S3 or S4 gallop. LUNGS: Coarse with equal thoracic movement. ABDOMEN: Soft, nondistended, and nontender. EXTREMITIES: No clubbing, no cyanosis. NEUROLOGICAL: He is awake. He is alert. He is at his baseline. LABORATORY DATA: Sodium 117, potassium 3.3, BUN 6, creatinine 0.6, hemoglobin 8.2, hematocrit 22. IMPRESSION: * Hypervolemia, hyponatremia. * End-stage cirrhosis. * Electrolyte abnormalities. * Anemia. PLAN: The patient's serum sodium continues to improve. The patient is awake and alert. There is no need for any 3% saline. Main stay of therapy will be fluid restriction, which he is encouraged. We will continue to follow closely. The patient eventually will require a paracentesis. Electrolytes have all been aggressively repleted and we will follow the patient closely. TID: [id number] RECEIPT: [id number]
[2024-11-30 04:52] LABS: ASPARTATE AMINOTRANSFERASE 95.0 U/L (10-37); CREATININE 0.5 mg/dL (0.5-1.3); GLOMERULAR FILTR. RATE CALC 123.0 mL/min (>90); GLUCOSE,RANDOM 95.0 mg/dL (70-105); SODIUM SERUM 118.0 mmol/L (136-145); TOTAL PROTEIN, SERUM 5.5 g/dL (6.0-8.3); UREA NITROGEN, BLOOD 5.0 mg/dL (7-18)
[2024-11-30 08:28] LABS: CREATININE 0.5 mg/dL (0.5-1.3); GLOMERULAR FILTR. RATE CALC 123.0 mL/min (>90); GLUCOSE,RANDOM 90.0 mg/dL (70-105); SODIUM SERUM 118.0 mmol/L (136-145); UREA NITROGEN, BLOOD 6.0 mg/dL (7-18)
--- NOTE | 2024-11-30 08:42 | NUR ---
Patient taken to GI lab via stretcher for EGD
[2024-11-30] MEDS ORDERED: LIDOCAINE HCL 1% 20 ML VIAL ONE (09:00)
--- NOTE | 2024-11-30 10:02 | PN ---
[facility] PROGRESS NOTE Date Patient Seen: Nov 30, 2024 Time of Visit: 10:02 Supervising Physician: THA SHAH MD Primary Care Physician: JOLLY BOOGIE MD Outpatient Specialists: [ ] Inpatient Consults: DR GINGER WAN, DR MARSHALL NEELY, B[facility] ASSESSMENT: Severe hyponatremia 2/2 beer potomania POA Suspected decompensated liver cirrhosis POA (MELD Score 14 points, 6% estimated three month mortality) Moderate portal hypertensive gastropathy on EGD 11/30/24 Status post EGD on 11/30/24 with findings of gastritis. Biopsied. Fluid overload likely in setting of liver cirrhosis Ascites s/p paracentesis with 3 L out Hyperchromic Anemia s/p EGD with Intermittent hematochezia Hypertension Hypomagnesemia Alcohol abuse INTERVAL HISTORY: Chart reviewed including all laboratory and imaging results. Patient assessed at bedside. Denies chest pain, palpitation, or shortness for breath. Patient is slightly confused on time. Awake alert and oriented times to person and place and situation. Follows simple commands. Sodium is 118 similar to yesterday. He is currently NPO pending EGD. Hemodynamically stable. No major overnight events reported. REVIEW OF SYSTEMS: 12 point ROS reviewed with patient. Pertinent positives mentioned above. Otherwise negative. PHYSICAL EXAM: GENERAL: alert, weak, awake oriented x 3 HEENT: EOMI, Sclera non icteric, moist mucosa NECK: Supple, no JVD, trachea midline LUNGS: Diminished at bases. No wheezes HEART: Regular rate and rhythm. Normal S1 and S2, without murmurs ABD: Large volume ascites EXT: No clubbing cyanosis or edema NEURO: Alert and oriented to person, follows commands Vital Signs (last 8hr) Date Time Temp Pulse Resp B/P (MAP) Pulse Ox O2 Delivery O2 Flow Rate FiO2 11/30/24 06:00 88 15 98/47 98 Room Air 11/30/24 05:00 82 14 86/52 97 Room Air 11/30/24 04:00 97.9 74 14 114/66 99 Room Air 11/30/24 04:00 100 Room Air* 0 21 11/30/24 03:00 81 16 113/69 100 Room Air LABS: Hematology Labs: Test 11/29/24 04:13 Range/Units White Blood Count 10.1 4.8-10.8 K/uL Red Blood Count 2.31 L 4.50-6.20 MIL/uL Hemoglobin 8.2 L 14.0-18.0 g/dL Hematocrit 22.1 L 42-54 % Mean Corpuscular Volume 95.7 79-99 fL Mean Corpuscular Hemoglobin 35.5 H 27.0-33.0 pg Mean Corpuscular Hemoglobin Concent 37.1 H 32.0-36.0 g/dL Red Cell Distribution Width 15.9 H 11.0-15.5 % Platelet Count 134 130-400 K/uL Mean Platelet Volume 9.1 7.5-10.5 fL Nucleated Red Blood Cells 0.0 0.0-0.19 % Chemistry Labs: Test 11/30/24 08:11 11/30/24 03:08 11/29/24 09:38 11/29/24 04:13 Range/Units Sodium Level 118 L 136-145 mmol/L Potassium Level 3.9 3.5-5.1 mmol/L Chloride Level 89 *L 101-111 mmol/L Carbon Dioxide Level 24 21-32 mmol/L Blood Urea Nitrogen 6 L 7-18 mg/dL Creatinine 0.5 0.5-1.3 mg/dL Glomerular Filtration Rate Calc 123 >90 mL/min Random Glucose 90 70-105 mg/dL Total Calcium 7.0 L 8.5-10.1 mg/dL Magnesium Level 1.90 1.80-2.40 mg/dL Total Bilirubin 2.4 H 0.2-1.0 mg/dL Aspartate Amino Transf (AST/SGOT) 95 H 10-37 U/L Alanine Aminotransferase (ALT/SGPT) 24 12-78 U/L Alkaline Phosphatase 185 H 50-136 U/L Total Protein 5.5 L 6.0-8.3 g/dL Albumin 1.7 L 3.5-5.0 g/dL Troponin I High Sensitivity 4 4-75 ng/L Amylase Level 64 25-115 U/L Lipase 127 H 16-77 U/L Iron Level 41 L 65-175 mcg/dL Total Iron Binding Capacity 98 L 250-450 mcg/dL Percent Iron Saturation 41.8 30-44 % Tumor Marker Alpha Fetoprotein 3.0 0.0-8.4 ng/mL Test 11/28/24 13:46 Range/Units Ammonia 13 11-32 umol/L Coagulation Labs: Test 11/28/24 10:28 Range/Units Prothrombin Time 15.1 H 9.6-11.6 SEC Prothromb Time International Ratio 1.48 H 0.85-1.15 Activated Partial Thromboplast Time 42.4 H 26.3-35.5 SEC DIAGNOSTICS / RADIOLOGY RESULTS: [ ] PLAN EGD today Continue sodium tablets 1000 mg q.6 hours Continuous cardiac monitoring After EGD Clear liquid diet for colonoscopy tomorrow Await EGD pathology reports Continue thiamine Continue CIWA protocol and benzos as needed NEURO: Minimize central acting medications as possible. Fall Precautions. Well lighted room through the day and minimize interruptions through the night to prevent acute delirium. PULMONARY: Supplemental 02 as needed Titrate Fio2 to keep Spo2 > or = 90% DuoNebs and CPT as needed IS hourly while awake for pulmonary hygiene Out of bed to chair as tolerated CARDIOVASCULAR: Follow hemodynamics. Titrate vasopressor to keep MAP >65 or systolic blood pressure >95mmHg LINES: Peripheral IV GI & NUTRITION: Continue nutritional support Aspirations precautions Prokinetic agents and laxatives as needed KIDNEYS & ELECTROLYTES: Strict monitoring of intake and output Daily weights Avoid nephrotoxic agents Monitor electrolytes and replace as needed Goal urine output of 30mL/hr or 0.5mL/kg/hr Urine output: [ ] Fluid Balance: [ ] ENDOCRINE: Maintain blood glucose between 100-180 at all times. Insulin sliding scale for blood glucose management INFECTIOUS DISEASE: Trend temperature. Rubin-culture if febrile. Micro: [ ] Ascites fluid no growth 24-35 hours Antibiotics: [ ] Rocephin 1 g Q 24 hours HEMATOLOGY & COAGULATION: Monitor H&H. Keep Hgb > 7 Transfuse 1 unit of PRBC for Hgb < 7 Transfuse 1 pack of platelets of platelets < 20, 000 Watch for any signs and symptoms of bleeding SKIN: Pressure ulcer prevention per facility protocol Rehab: PT/OT Prophylaxis: GI: [ Protonix] DVT: [ SCDs] Code Status: Full Resuscitation Disposition: [ ICU] Other: Total patient care time exceeds 35 minutes excluding all procedures. Case was discussed and seen with my supervising physician. The above plan was formulated and agreed upon. MARTHA FERRELL Nov 30, 2024 10:02
[2024-11-30 10:14] LABS: NUCLEATED RED BLOOD CELLS 0.0 % (0.0-0.19); PLATELET COUNT (AUTO) 151.0 K/uL (130-400); RED BLOOD CELL COUNT(AUTO) 2.47 MIL/uL (4.50-6.20); RED CELL DISTRIBUTION WIDTH 16.7 % (11.0-15.5); WHITE BLOOD COUNT (AUTO) 10.8 K/uL (4.8-10.8)
[2024-11-30 11:43] LABS: HEPATITIS A IGM ANTIBODY Non-Reactive (Nonreactive); HEPATITIS B CORE IGM ANTIBODY Non-Reactive (Negative)
--- NOTE | 2024-11-30 12:34 | NUR ---
Colonoscopy scheduled with scheduling at this time
--- NOTE | 2024-11-30 12:41 | PN ---
[facility] PROGRESS NOTE Date of Service: Nov 30, 2024 Time of Service: 12:39 SUBJECTIVE: 11/29 patient is seen and examined at bedside, case discussed with the RN, no acute events overnight, the patient is alert oriented x3, however feels mildly dizzy, weak, noted to have mild tremor, BP 102/65, heart rate of 93, afebrile, saturating normal on room air, CBC with a hemoglobin 8.2, hematocrit 22.1, WBC 10.1, with a platelet count of 134, sodium 116, potassium 3.7, BUN of five, creatinine 0.6, calcium 7.2. Iron level of 41, magnesium 1.4. We will start the patient on CIWA protocol, patient is started on sodium chloride tablet 1 g p.o. q.6 hours per Nephrology, continue to follow input and recommendation. Follow critical care input and recommendation. Continue Protonix 40 mg IV b.i.d.. Follow stool occult blood, if positive we will request GI consultation. We will start the patient on Venofer. We will give 2 g of magnesium sulfate IV x1, follow a.m. labs. Follow amylase and lipase levels, follow troponin, patie nt complaining of midepigastric discomfort. 11/30 patient is seen and examined at bedside, case discussed with the RN, patient was getting mildly agitated, received a dose of Librium, the time of my visit he is comfortably in bed. EGD done, findings of mild gastritis. Plan for colonoscopy tomorrow. Blood pressure 119/77, heart rate of 116, he is saturating normal on room air, leukocytosis resolved, WBC 10.8, sodium level stable at 118, BUN and creatinine within normal range. Continue to follow critical care input and recommendation, follow GI input and recommendation, continue to replace IV per protocol, continue with CIWA protocol. REVIEW OF SYSTEMS CONSTITUTIONAL: Denies fevers, chills, or night sweats. No unintentional weight loss reported. Positive for generalized body weakness NEUROLOGICAL: Denies headache, amaurosis fugax, motor weakness, sensory deficit, vertigo/spinning sensation, gait abnormalities, or tremors. ENT: No hearing loss, otalgia, otorrhea, rhinitis, rhinorrhea, hoarseness, or sore throat. CARDIOVASCULAR: Denies any exertional angina, dyspnea on exertion, orthopnea, paroxysmal nocturnal dyspnea, palpitations, life-threatening arrhythmias, claudication. PULMONARY: Denies any shortness of breath, cough, phlegm/sputum, hemoptysis, pleuritic chest pain. GASTROINTESTINAL: Positive for nausea, vomiting, hematochezia, abdominal distention. Denied any melena, constipation, diarrhea GENITOURINARY: Denies frequency, urgency, nocturia, hematuria or incontinence (Storage/Irritative symptoms.) Low urinary stream, straining to void, urinary intermittency or hesitancy, splitting of the voiding stream, terminal dribbling. ENDOCRINOLOGIC: Denies polyuria, polydipsia, polyphagia or heat/cold intolerances. HEMATOLOGIC: Denies thrombophilia/previous clots, or coagulopathy/bleeding disorders. ONCOLOGIC: Denies personal history of malignancy. DERMATOLOGIC: Denies rashes or pruritus. PSYCHIATRIC: Denies any suicidal or homicidal ideation. Denies hallucinations. PHYSICAL EXAM GENERAL APPEARANCE: The patient is awake, alert, and oriented, in no acute cardiopulmonary distress. NEUROLOGICAL: Cranial nerves II-XII grossly intact. Motor is 5/5 in bilateral upper and lower extremities proximal to distal. No sensory deficits. HEENT: Face is symmetric. Pupils are equal and reactive. Extraocular movements are intact. NECK: Supple. No JVD. No thyromegaly. No submental, submandibular, pre- /postauricular, occipital or supraclavicular lymphadenopathy. CHEST: Normal chest expansion. No Telemetry. LUNGS: Absence of any rales, rhonchi or any wheezing. CARDIOVASCULAR: Regular. S1 and S2 normal. No appreciable rubs, murmurs or gallops. ABDOMEN: Soft, patient has abdominal distention noted. There is no guarding, no rigidity noted : Deferred. No Espinosa. EXTREMITIES: 2+ pitting edema in the lower extremity bilaterally and not cyanotic. No clubbing. Good capillary refill. SKIN: No skin breakdown. Vital Signs (last 8hr) Date Time Temp Pulse Resp B/P (MAP) Pulse Ox O2 Delivery O2 Flow Rate FiO2 11/30/24 12:00 100 Room Air* 0 21 11/30/24 11:36 Mask 11/30/24 11:35 Mask 10.0 11/30/24 11:00 116 21 119/77 97 Room Air 11/30/24 10:00 115 24 115/82 97 11/30/24 09:45 90 22 112/72 100 11/30/24 09:30 89 23 115/76 100 11/30/24 09:15 95 21 116/74 100 11/30/24 09:00 106 20 125/84 100 11/30/24 08:00 100 Room Air* 0 21 11/30/24 08:00 98.4 99 20 138/85 97 Room Air 11/30/24 06:00 88 15 98/47 98 Room Air 11/30/24 05:00 82 14 86/52 97 Room Air LABS: Laboratory: Test 11/30/24 08:11 11/30/24 03:08 11/29/24 09:38 11/29/24 04:13 Range/Units Sodium Level 118 L 136-145 mmol/L Potassium Level 3.9 3.5-5.1 mmol/L Chloride Level 89 *L 101-111 mmol/L Carbon Dioxide Level 24 21-32 mmol/L Blood Urea Nitrogen 6 L 7-18 mg/dL Creatinine 0.5 0.5-1.3 mg/dL Glomerular Filtration Rate Calc 123 >90 mL/min Random Glucose 90 70-105 mg/dL Total Calcium 7.0 L 8.5-10.1 mg/dL Amylase Level 56 25-115 U/L Lipase 80 H 16-77 U/L White Blood Count 10.8 4.8-10.8 K/uL Red Blood Count 2.47 L 4.50-6.20 MIL/uL Hemoglobin 8.7 L 14.0-18.0 g/dL Hematocrit 24.3 L 42-54 % Mean Corpuscular Volume 98.4 79-99 fL Mean Corpuscular Hemoglobin 35.2 H 27.0-33.0 pg Mean Corpuscular Hemoglobin Concent 35.8 32.0-36.0 g/dL Red Cell Distribution Width 16.7 H 11.0-15.5 % Platelet Count 151 130-400 K/uL Mean Platelet Volume 9.2 7.5-10.5 fL Nucleated Red Blood Cells 0.0 0.0-0.19 % Magnesium Level 1.90 1.80-2.40 mg/dL Total Bilirubin 2.4 H 0.2-1.0 mg/dL Aspartate Amino Transf (AST/SGOT) 95 H 10-37 U/L Alanine Aminotransferase (ALT/SGPT) 24 12-78 U/L Alkaline Phosphatase 185 H 50-136 U/L Total Protein 5.5 L 6.0-8.3 g/dL Albumin 1.7 L 3.5-5.0 g/dL Troponin I High Sensitivity 4 4-75 ng/L Iron Level 41 L 65-175 mcg/dL Total Iron Binding Capacity 98 L 250-450 mcg/dL Percent Iron Saturation 41.8 30-44 % Tumor Marker Alpha Fetoprotein 3.0 0.0-8.4 ng/mL Test 11/28/24 17:10 11/28/24 15:02 11/28/24 13:46 Range/Units Urine Color YELLOW YELLOW Urine Appearance CLEAR CLEAR Urine pH 6.5 5.0-8.0 Urine Specific [place] 1.004 1.001-1.031 Urine Protein NEGATIVE NEGATIVE mg/dL Urine Glucose (UA) NEGATIVE NEGATIVE mg/dL Urine Ketones 5 H NEGATIVE mg/dL Urine Occult Blood NEGATIVE NEGATIVE Urine Nitrate NEGATIVE NEGATIVE Urine Bilirubin NEGATIVE NEGATIVE mg/dL Urine Urobilinogen 2.0 H 0.2-1.0 mg/dL Urine Leukocyte Esterase NEGATIVE NEGATIVE Pattie/uL Urine Osmolality 116 50-1200 mOsm/kg Urine Random Sodium < 13 L 40-220 mmol/l Urine Opiates Screen NEGATIVE NEGATIVE Urine Barbiturates Screen NEGATIVE NEGATIVE Urine Phencyclidine Screen NEGATIVE NEGATIVE Urine Amphetamines Screen NEGATIVE NEGATIVE Urine Benzodiazepines Screen NEGATIVE NEGATIVE Urine Cocaine Screen NEGATIVE NEGATIVE Urine Marijuana (THC) Screen NEGATIVE NEGATIVE Body Fluid Source ASCITES Body Fluid Volume 19 mL Body Fluid Color YELLOW LT YELLOW Body Fluid Supernatant Appearance CLEAR CLEAR Body Fluid WBC 82 /cu. mm. Body Fluid RBC 155 /cu. mm. Body Fluid Neutrophils 68.0 % Body Fluid Lymphocytes 11 % Body Fluid Monocytes % 2 % Body Fluid Macrophages (%) 4 Body Fluid Mesothelial Cells (%) 3 % Body Fluid Other Cells (%) 12 Body Fluid Total Protein 1.5 g/dL Body Fluid Albumin 0.5 g/dL Ammonia 13 11-32 umol/L Current Medications Medications (Trade) Dose Ordered Sig/Ronak Route PRN Reason Start Time Stop Time Status Last Admin Dose Admin Acetaminophen (TYLenol 500MG TAB) 500 mg Q6H PRN PO MILD PAIN (1-3) 11/28/24 09:30 12/28/24 09:29 11/29/24 20:25 500 MG Ceftriaxone Sodium (ROCEphine 1G INJ) 1 gm Q24H IVPB 9/21/25 09:30 12/08/24 09:29 11/30/24 08:22 1 GM Chlordiazepoxide HCl (LIBrium 25 MG CAP) 25 mg Q2H PRN PO ALCOHOL WITHDRAWAL PROTOCOL 11/29/24 09:00 12/06/24 08:59 11/30/24 10:45 25 MG Chlordiazepoxide HCl (LIBrium 25 MG CAP) 50 mg Q1H PRN PO ALCOHOL WITHDRAWAL PROTOCOL 11/29/24 09:00 12/06/24 08:59 Famotidine (Pepcid 20mg Vial) 20 mg BID IV 11/28/24 21:00 11/28/24 09:59 DC Folic Acid (FOLic ACID 1 MG TABLET) 1 mg DAILY PO 11/29/24 09:00 12/29/24 08:59 11/29/24 07:52 1 MG Magnesium Sulfate 50 ml @ 0 mls/hr PROTOCOL IV 11/29/24 11:00 11/29/24 10:44 DC Magnesium Sulfate 50 ml @ 0 mls/hr PROTOCOL PRN IV hypomagnesium 11/28/24 09:30 12/28/24 09:29 11/29/24 17:48 25 MLS/HR Ondansetron HCl (zoFRAN 4MG INJ) 4 mg Q6H PRN IVP NAUSEA/VOMITING 11/28/24 18:00 12/28/24 17:59 Pantoprazole Sodium (PROTonix 40MG INJ) 40 mg BID IVP 11/28/24 10:00 12/28/24 09:59 11/30/24 08:23 40 MG Pharmacy Profile Note (Pharmacy Communication) 1 each PROTOCOL PRN MISC ETOH Withdrawal Score changes 11/29/24 09:00 12/06/24 08:59 Potassium Chloride 100 ml @ 100 mls/hr AD PRN IV POTASSIUM PROTOCOL 11/28/24 10:30 12/28/24 10:29 Potassium Chloride (K-Dur/Klor-Con 20meq) 20 meq AD PRN PO POTASSIUM PROTOCOL 11/28/24 10:30 12/28/24 10:29 Potassium Chloride (KCl 10% Elixir 20meq/15ml) 20 meq AD PRN PO POTASSIUM PROTOCOL 11/28/24 10:30 12/28/24 10:29 11/29/24 07:53 20 MEQ Sodium Chloride 1,000 ml @ 125 mls/hr Q8H IV 11/28/24 11:30 11/28/24 11:56 DC 11/28/24 11:37 125 MLS/HR Sodium Chloride (Sodium Chloride) 1,000 mg Q6H PO 11/28/24 14:00 12/28/24 13:59 11/30/24 10:42 1,000 MG Thiamine HCl (Vitamin B-1) 100 mg DAILY IVP 11/29/24 09:00 11/28/24 14:03 DC Thiamine HCl (Vitamin B-1) 300 mg DAILY IVP 12/01/24 09:00 12/29/24 14:29 Thiamine HCl (Vitamin B-1) 300 mg Q8H IVP 11/28/24 14:30 11/30/24 09:05 DC 11/30/24 06:25 300 MG DIAGNOSTICS / RADIOLOGY: [ ] ASSESSMENT: Severe hyponatremia Suspected decompensated liver cirrhosis POA Alcohol use Fluid overload likely in setting of liver cirrhosis Ascites Anemia Intermittent hematochezia Hypertension Hypomagnesemia PLAN: patient is seen and examined at bedside, case discussed with the RN, patient was getting mildly agitated, received a dose of Librium, the time of my visit he is comfortably in bed. EGD done, findings of mild gastritis. Plan for colonoscopy tomorrow. Blood pressure 119/77, heart rate of 116, he is saturating normal on room air, leukocytosis resolved, WBC 10.8, sodium level stable at 118, BUN and creatinine within normal range. Continue to follow critical care input and recommendation, follow GI input and recommendation, continue to replace IV per protocol, continue with CIWA protocol. NEURO: Minimize central acting medications as possible. Fall Precautions. Well lighted room through the day and minimize interruptions through the night to prevent acute delirium. PULMONARY: Supplemental 02 as needed BiPAP as necessary, for respiratory distress Titrate Fio2 to keep Spo2 > or = 90% DuoNebs and CPT as needed IS hourly while awake for pulmonary hygiene prn Out of bed to chair as tolerated Maintain aspiration precautions at all times CARDIOVASCULAR: Follow hemodynamics. Vital signs per facility protocol GI & NUTRITION: Continue nutritional support Aspirations precautions Prokinetic agents and laxatives as needed KIDNEYS & ELECTROLYTES: Strict monitoring of intake and output Daily weights Avoid nephrotoxic agents Monitor electrolytes and replace as needed Goal urine output of 30mL/hr or 0.5mL/kg/hr Medications to be dosed according to renal function. Avoid contrast if possible ENDOCRINE: Maintain blood glucose between 100-180 at all times. Insulin sliding scale for blood glucose management Hypoglycemia and hyperglycemia protocol in place INFECTIOUS DISEASE: Trend temperature, WBC and procalcitonin level Follow cultures, deescalate antibiotics as soon as possible. Panculture if new onset fever HEMATOLOGY & COAGULATION: Monitor H&H. Keep Hgb > 7 Transfuse 1 unit of PRBC for Hgb < 7 Transfuse 1 pack of platelets of platelets < 20, 000 Watch for any signs and symptoms of bleeding SKIN: Pressure ulcer prevention per facility protocol Specialty mattress as needed ORTHO/REHAB Continue PT/OT PRN: MEDICATIONS Tylenol 650 mg po every 4 hrs for fever zofran 4 mg IV every 6 hrs for n/v Hydralazine 5 mg IV every 4 hrs systolic pressure > 160 bowel regiment: lactulose 20 gm PO BID PRN constipation Supportive measures: Continue GI and DVT prophylaxis All questions answered time spent: > 35 min NELDA GRIJALVA MD Nov 30, 2024 12:41
--- NOTE | 2024-11-30 14:30 | PN ---
GASTROENTEROLOGY PROGRESS NOTE Date of Visit: Nov 30, 2024 Time of Visit: 14:25 Events / Notes: [ Patient underwent an EGD and was found to have moderate portal hypertensive gastropathy, antral gastritis, no esophageal varices noted. Patient's vital signs have remained stable and he is afebrile. WBC of 10.8, hemoglobin 8.7, platelets 151. Chemistry significant for sodium of 118, chloride 89, BUN of 6, calcium 7.0. On exam, patient is awake, alert and oriented in no acute distress sitting at side of bed. His respirations are unlabored. BBS are clear. Abdomen is soft, nontender, and not distended. Active BS present. He reported having hematochezia for the past 5 days and would have hematochezia on and off. Poc discussed and recommendations for colonoscopy explained. All his questions were answered and he agreed to proceed with exam. ] Review of Systems: CONSTITUTIONAL: No malaise or change in sensation of wellbeing. ENMT: No rhinorrhea, otorrhea, sinus pain, ear ache. CARDIOVASCULAR: No angina, palpitations, orthopnea or paroxysmal dyspnea. RESPIRATORY: No SOB. GASTROINTESTINAL: No abdominal pain, nausea, vomiting, diarrhea, hematemesis, melena or change in the patient's habitual bowel movements consistency/number. GENITOURINARY: No dysuria, hematuria or change in bladder continence. MUSCULOSKELETAL: No new muscle pain or decrease in muscular strength. No new joint swelling, redness or tenderness. SKIN: No new rash. Physical Exam: GEN: Awake, alert, oriented in person, time and place, and in no acute distress. HEENT: Oral pharyngeal mucosa is pink, moist and within normal limits CHEST: Lung auscultation revealed normal breath sounds bilaterally. CARDIAC: . Heart sounds are regular. ABD: Soft, non-tender and mildly distended. No peritoneal signs on palpation. No organomegaly. Normal bowel sounds. EXT: No cyanosis or clubbing. No edema. SKIN: Intact. No rashes. JOINTS: No evidence of synovitis or acute arthritis. NEURO: Alert and oriented to name, place and person. No focal motor deficits. Normal speech. Gait is normal. Vital Signs (last 8hr) Date Time Temp Pulse Resp B/P (MAP) Pulse Ox O2 Delivery O2 Flow Rate FiO2 11/30/24 14:00 97 15 126/71 98 Room Air 11/30/24 13:00 109 19 137/87 99 Room Air 11/30/24 12:00 98.1 108 23 126/88 99 Room Air 11/30/24 12:00 100 Room Air* 0 21 11/30/24 11:36 Mask 11/30/24 11:35 Mask 10.0 11/30/24 11:00 116 21 119/77 97 Room Air 11/30/24 10:00 115 24 115/82 97 11/30/24 09:45 90 22 112/72 100 11/30/24 09:30 89 23 115/76 100 11/30/24 09:15 95 21 116/74 100 11/30/24 09:00 106 20 125/84 100 11/30/24 08:00 100 Room Air* 0 21 11/30/24 08:00 98.4 99 20 138/85 97 Room Air Laboratory: [ ] Laboratory: Test 11/30/24 08:11 11/30/24 03:08 11/29/24 09:38 11/29/24 04:13 Range/Units Sodium Level 118 L 136-145 mmol/L Potassium Level 3.9 3.5-5.1 mmol/L Chloride Level 89 *L 101-111 mmol/L Carbon Dioxide Level 24 21-32 mmol/L Blood Urea Nitrogen 6 L 7-18 mg/dL Creatinine 0.5 0.5-1.3 mg/dL Glomerular Filtration Rate Calc 123 >90 mL/min Random Glucose 90 70-105 mg/dL Total Calcium 7.0 L 8.5-10.1 mg/dL Amylase Level 56 25-115 U/L Lipase 80 H 16-77 U/L White Blood Count 10.8 4.8-10.8 K/uL Red Blood Count 2.47 L 4.50-6.20 MIL/uL Hemoglobin 8.7 L 14.0-18.0 g/dL Hematocrit 24.3 L 42-54 % Mean Corpuscular Volume 98.4 79-99 fL Mean Corpuscular Hemoglobin 35.2 H 27.0-33.0 pg Mean Corpuscular Hemoglobin Concent 35.8 32.0-36.0 g/dL Red Cell Distribution Width 16.7 H 11.0-15.5 % Platelet Count 151 130-400 K/uL Mean Platelet Volume 9.2 7.5-10.5 fL Nucleated Red Blood Cells 0.0 0.0-0.19 % Magnesium Level 1.90 1.80-2.40 mg/dL Total Bilirubin 2.4 H 0.2-1.0 mg/dL Aspartate Amino Transf (AST/SGOT) 95 H 10-37 U/L Alanine Aminotransferase (ALT/SGPT) 24 12-78 U/L Alkaline Phosphatase 185 H 50-136 U/L Total Protein 5.5 L 6.0-8.3 g/dL Albumin 1.7 L 3.5-5.0 g/dL Troponin I High Sensitivity 4 4-75 ng/L Iron Level 41 L 65-175 mcg/dL Total Iron Binding Capacity 98 L 250-450 mcg/dL Percent Iron Saturation 41.8 30-44 % Tumor Marker Alpha Fetoprotein 3.0 0.0-8.4 ng/mL Test 11/28/24 17:10 11/28/24 15:02 Range/Units Urine Color YELLOW YELLOW Urine Appearance CLEAR CLEAR Urine pH 6.5 5.0-8.0 Urine Specific [place] 1.004 1.001-1.031 Urine Protein NEGATIVE NEGATIVE mg/dL Urine Glucose (UA) NEGATIVE NEGATIVE mg/dL Urine Ketones 5 H NEGATIVE mg/dL Urine Occult Blood NEGATIVE NEGATIVE Urine Nitrate NEGATIVE NEGATIVE Urine Bilirubin NEGATIVE NEGATIVE mg/dL Urine Urobilinogen 2.0 H 0.2-1.0 mg/dL Urine Leukocyte Esterase NEGATIVE NEGATIVE Pattie/uL Urine Osmolality 116 50-1200 mOsm/kg Urine Random Sodium < 13 L 40-220 mmol/l Urine Opiates Screen NEGATIVE NEGATIVE Urine Barbiturates Screen NEGATIVE NEGATIVE Urine Phencyclidine Screen NEGATIVE NEGATIVE Urine Amphetamines Screen NEGATIVE NEGATIVE Urine Benzodiazepines Screen NEGATIVE NEGATIVE Urine Cocaine Screen NEGATIVE NEGATIVE Urine Marijuana (THC) Screen NEGATIVE NEGATIVE Body Fluid Source ASCITES Body Fluid Volume 19 mL Body Fluid Color YELLOW LT YELLOW Body Fluid Supernatant Appearance CLEAR CLEAR Body Fluid WBC 82 /cu. mm. Body Fluid RBC 155 /cu. mm. Body Fluid Neutrophils 68.0 % Body Fluid Lymphocytes 11 % Body Fluid Monocytes % 2 % Body Fluid Macrophages (%) 4 Body Fluid Mesothelial Cells (%) 3 % Body Fluid Other Cells (%) 12 Body Fluid Total Protein 1.5 g/dL Body Fluid Albumin 0.5 g/dL Current Medications Medications (Trade) Dose Ordered Sig/Ronak Route PRN Reason Start Time Stop Time Status Last Admin Dose Admin Acetaminophen (TYLenol 500MG TAB) 500 mg Q6H PRN PO MILD PAIN (1-3) 11/28/24 09:30 12/28/24 09:29 11/29/24 20:25 500 MG Ceftriaxone Sodium (ROCEphine 1G INJ) 1 gm Q24H IVPB 11/28/24 09:30 12/08/24 09:29 11/30/24 08:22 1 GM Chlordiazepoxide HCl (LIBrium 25 MG CAP) 25 mg Q2H PRN PO ALCOHOL WITHDRAWAL PROTOCOL 11/29/24 09:00 12/06/24 08:59 11/30/24 10:45 25 MG Chlordiazepoxide HCl (LIBrium 25 MG CAP) 50 mg Q1H PRN PO ALCOHOL WITHDRAWAL PROTOCOL 11/29/24 09:00 12/06/24 08:59 Famotidine (Pepcid 20mg Vial) 20 mg BID IV 11/28/24 21:00 11/28/24 09:59 DC Folic Acid (FOLic ACID 1 MG TABLET) 1 mg DAILY PO 11/29/24 09:00 12/29/24 08:59 11/29/24 07:52 1 MG Magnesium Sulfate 50 ml @ 0 mls/hr PROTOCOL IV 11/29/24 11:00 11/29/24 10:44 DC Magnesium Sulfate 50 ml @ 0 mls/hr PROTOCOL PRN IV hypomagnesium 11/28/24 09:30 12/28/24 09:29 11/29/24 17:48 25 MLS/HR Ondansetron HCl (zoFRAN 4MG INJ) 4 mg Q6H PRN IVP NAUSEA/VOMITING 11/28/24 18:00 12/28/24 17:59 Pantoprazole Sodium (PROTonix 40MG INJ) 40 mg BID IVP 11/28/24 10:00 12/28/24 09:59 11/30/24 08:23 40 MG Pharmacy Profile Note (Pharmacy Communication) 1 each PROTOCOL PRN MISC ETOH Withdrawal Score changes 11/29/24 09:00 12/06/24 08:59 Potassium Chloride 100 ml @ 100 mls/hr AD PRN IV POTASSIUM PROTOCOL 11/28/24 10:30 12/28/24 10:29 Potassium Chloride (K-Dur/Klor-Con 20meq) 20 meq AD PRN PO POTASSIUM PROTOCOL 11/28/24 10:30 12/28/24 10:29 Potassium Chloride (KCl 10% Elixir 20meq/15ml) 20 meq AD PRN PO POTASSIUM PROTOCOL 11/28/24 10:30 12/28/24 10:29 11/29/24 07:53 20 MEQ Sodium Chloride 1,000 ml @ 125 mls/hr Q8H IV 11/28/24 11:30 11/28/24 11:56 DC 11/28/24 11:37 125 MLS/HR Sodium Chloride (Sodium Chloride) 1,000 mg Q6H PO 11/28/24 14:00 12/28/24 13:59 11/30/24 10:42 1,000 MG Thiamine HCl (Vitamin B-1) 100 mg DAILY IVP 11/29/24 09:00 11/28/24 14:03 DC Thiamine HCl (Vitamin B-1) 300 mg DAILY IVP 12/01/24 09:00 12/29/24 14:29 Thiamine HCl (Vitamin B-1) 300 mg Q8H IVP 11/28/24 14:30 11/30/24 09:05 DC 11/30/24 06:25 300 MG Diagnostics / Radiology: [COPY/PASTE HERE IF NO REPORTS PLEASE DELETE SECTION] Assessment: Hematochezia Anemia Liver Cirrhosis Ascites Plan: Case discussed with Dr. Molina Clear fluids today NPO after midnight Plan for colonoscopy in am. Recommend therapeutic paracentesis. If more than 5 liters are removed, please give albumin 50 g IV Send ascites fluid for cell count with differential, albumin, total protein, cultures,and cytology Order CMP same day as paracentesis Based on the ascites results, then calculate SAAG (serum to ascites albumin gradient) = Serum albumin level ascites albumin level. If the SAAG is >1.1 g/dL, then the ascites is due to portal hypertension (liver diseases or cardiac diseases listed above). If the SAAG <1.1 g/dL, then the ascites is due to other causes (malignancy, TB, nephrotic syndrome, etc) If the total ascites protein is < 2.5 g/dL, then the high SAAG ascites is to due to liver disease. If the total ascites protein is > 2.5 g/dL, then the high SAAG ascites is due to cardiac causes. Once the patient is stable, please start diuretics with furosemide 40 mg po daily and spironolactone 100 mg po daily Recommend low sodium diet < 2000 mg per day. No need to restrict fluid intake in most cases 1Avoid SAYDA inhibitors and ARBs (angiotensin II receptor blockers) Thanks you for allowing us to participate in the care of this patient! FORTINO PRICE NP Nov 30, 2024 14:30
--- NOTE | 2024-11-30 16:02 | PN ---
[facility] PROGRESS NOTE Date Patient Seen: Nov 30, 2024 Time of Visit: 15:44 Supervising Physician: [ ] Primary Care Physician: [ ] Outpatient Specialists: [ ] Inpatient Consults: [ ] ASSESSMENT: Severe hyponatremia Suspected decompensated liver cirrhosis POA Alcohol use Fluid overload likely in setting of liver cirrhosis Ascites Anemia Intermittent hematochezia Hypertension Hypomagnesemia INTERVAL HISTORY: 54-year-old male with past medical history of hypertension who presented to the hospital secondary to generalized body weakness, abdominal distention and lower extremity edema. Patient states for the past one week he has been feeling weak in his lower extremities. He has not been able to ambulate very much. This also noted nausea and vomiting with associated abdominal distention. Denies any fever, chills, shortness of breath, chest pain, cough, abdominal pain. Denied any changes in his bowel movement. He has noted some blood with his bowel movement. His last recent bowel movement was negative. Denies any melena but has noted some hematochezia. Denied any dysuria, changes in his urination. He has had decreased appetite for the past few days. He has been tolerating liquids and solids at home. Denies any dysphagia. Denies any falls, syncopal episode. He has noted weight gain recently. He is alert oriented x4 and is able to answer questions and follow conversations. Patient was found to have large volume abdominal ascites, is sodium is 113, chloride 80, and LFTs elevated. Admitted under the hospitalist service requesting ICU for severe hy ponatremia. Critical Care consulted for ICU medical management. 11/30- patient was seen at the bedside, stable and oriented. Vitals stable. Labs WBC down from 13 0.4-10.8, HB down from 9.8-8.7, ammonia 13, lipase 80, amylase 56, AST 95, ALP 185, ALT 24, hepatitis panel and autoimmune panel negative, sodium trending up currently at 118, on sodium tablets t.i.d. with f luid restriction no indication for 3% Na Cl according to Dr. Galol. On examination patient increased abdomen girth indicating ascites, no symptoms of abdominal pain we will probably be needing paracentesis before discharge. Continues on CIWA protocol and fluid restriction, thiamine and folic acid. Patient had a and EGD today indicating moderate portal hypertensive gastropathy, antral gastritis, no esophageal varices noted. Colonoscopy scheduled for tomorrow a.m. patient can be downgraded med -surg tele if stable. Denies any chest pain or shortness of breath.Patient reports improvement in his swelling to the lower extremities Nursing reports no acute events overnight Patient's abdominal fluid transudate, sag greater than or equal to 1.1 REVIEW OF SYSTEMS: 12 point ROS reviewed with patient. Pertinent positives mentioned above. Otherwise negative. PHYSICAL EXAM: GENERAL: alert, weak, awake oriented x 3 HEENT: EOMI, Sclera non icteric, moist mucosa NECK: Supple, no JVD, trachea midline LUNGS: Diminished at bases. No wheezes HEART: Regular rate and rhythm. Normal S1 and S2, without murmurs ABD: Large volume ascites EXT: No clubbing cyanosis or edema NEURO: Alert and oriented to person, follows commands Vital Signs (last 8hr) Date Time Temp Pulse Resp B/P (MAP) Pulse Ox O2 Delivery O2 Flow Rate FiO2 11/30/24 14:00 97 15 126/71 98 Room Air 11/30/24 13:00 109 19 137/87 99 Room Air 11/30/24 12:00 98.1 108 23 126/88 99 Room Air 11/30/24 12:00 100 Room Air* 0 21 11/30/24 11:36 Mask 11/30/24 11:35 Mask 10.0 11/30/24 11:00 116 21 119/77 97 Room Air 11/30/24 10:00 115 24 115/82 97 11/30/24 09:45 90 22 112/72 100 11/30/24 09:30 89 23 115/76 100 11/30/24 09:15 95 21 116/74 100 11/30/24 09:00 106 20 125/84 100 11/30/24 08:00 100 Room Air* 0 21 11/30/24 08:00 98.4 99 20 138/85 97 Room Air LABS: Hematology Labs: Test 11/30/24 03:08 Range/Units White Blood Count 10.8 4.8-10.8 K/uL Red Blood Count 2.47 L 4.50-6.20 MIL/uL Hemoglobin 8.7 L 14.0-18.0 g/dL Hematocrit 24.3 L 42-54 % Mean Corpuscular Volume 98.4 79-99 fL Mean Corpuscular Hemoglobin 35.2 H 27.0-33.0 pg Mean Corpuscular Hemoglobin Concent 35.8 32.0-36.0 g/dL Red Cell Distribution Width 16.7 H 11.0-15.5 % Platelet Count 151 130-400 K/uL Mean Platelet Volume 9.2 7.5-10.5 fL Nucleated Red Blood Cells 0.0 0.0-0.19 % Chemistry Labs: Test 11/30/24 08:11 11/30/24 03:08 11/29/24 09:38 11/29/24 04:13 Range/Units Sodium Level 118 L 136-145 mmol/L Potassium Level 3.9 3.5-5.1 mmol/L Chloride Level 89 *L 101-111 mmol/L Carbon Dioxide Level 24 21-32 mmol/L Blood Urea Nitrogen 6 L 7-18 mg/dL Creatinine 0.5 0.5-1.3 mg/dL Glomerular Filtration Rate Calc 123 >90 mL/min Random Glucose 90 70-105 mg/dL Total Calcium 7.0 L 8.5-10.1 mg/dL Amylase Level 56 25-115 U/L Lipase 80 H 16-77 U/L Magnesium Level 1.90 1.80-2.40 mg/dL Total Bilirubin 2.4 H 0.2-1.0 mg/dL Aspartate Amino Transf (AST/SGOT) 95 H 10-37 U/L Alanine Aminotransferase (ALT/SGPT) 24 12-78 U/L Alkaline Phosphatase 185 H 50-136 U/L Total Protein 5.5 L 6.0-8.3 g/dL Albumin 1.7 L 3.5-5.0 g/dL Troponin I High Sensitivity 4 4-75 ng/L Iron Level 41 L 65-175 mcg/dL Total Iron Binding Capacity 98 L 250-450 mcg/dL Percent Iron Saturation 41.8 30-44 % Tumor Marker Alpha Fetoprotein 3.0 0.0-8.4 ng/mL DIAGNOSTICS / RADIOLOGY RESULTS: [ ] PLAN Follow pending labs, we will slowly correct patient's sodium level, BMP q.6 hours Telemetry NEURO: Minimize central acting medications as possible. Fall Precautions. Well lighted room through the day and minimize interruptions through the night to prevent acute delirium. PULMONARY: Supplemental 02 as needed Titrate Fio2 to keep Spo2 > or = 90% DuoNebs and CPT as needed IS hourly while awake for pulmonary hygiene Out of bed to chair as tolerated VAP Bundle Vent/BIPAP Settings: [ ] Driving pressure: [ ] P Plat: [ ] Static C: [ ] Static R: [ ] P/F Ratio: [ ] CARDIOVASCULAR: Follow hemodynamics. Titrate vasopressor to keep MAP >65 or systolic blood pressure >95mmHg DIPS: [ ] LINES: [ ] GI & NUTRITION: Continue nutritional support Aspirations precautions Prokinetic agents and laxatives as needed KIDNEYS & ELECTROLYTES: Strict monitoring of intake and output Daily weights Avoid nephrotoxic agents Monitor electrolytes and replace as needed Goal urine output of 30mL/hr or 0.5mL/kg/hr Urine output: [ ] Fluid Balance: [ ] ENDOCRINE: Maintain blood glucose between 100-180 at all times. Insulin sliding scale for blood glucose management INFECTIOUS DISEASE: Trend temperature. Rubin-culture if febrile. Micro: [ ] Antibiotics: [ ] HEMATOLOGY & COAGULATION: Monitor H&H. Keep Hgb > 7 Transfuse 1 unit of PRBC for Hgb < 7 Transfuse 1 pack of platelets of platelets < 20, 000 Watch for any signs and symptoms of bleeding SKIN: Pressure ulcer prevention per facility protocol Rehab: PT/OT Prophylaxis: GI: [ ] DVT: [ ] Code Status: Full Resuscitation Disposition: [ ] Other: Total patient care time exceeds 35 minutes excluding all procedures. Case was discussed and seen with my supervising physician. The above plan was formulated and agreed upon. ATTESTATION BY PHYSICIAN I have seen and examined the patient. I reviewed the documentation, medical decision making, and treatment plan as noted by the mid-level provider above. I agree with the findings and plan of care. THA SHAH MD, AISHWARYA MD Nov 30, 2024 16:02
[2024-11-30 17:17] LABS: CREATININE 0.6 mg/dL (0.5-1.3); GLOMERULAR FILTR. RATE CALC 116.0 mL/min (>90); GLUCOSE,RANDOM 95.0 mg/dL (70-105); SODIUM SERUM 118.0 mmol/L (136-145); UREA NITROGEN, BLOOD 6.0 mg/dL (7-18)
[2024-11-30] MEDS: PEG 3350/NA SULF,BICARB,CL/KCL 4000 ML SOLN PO ONE (18:06)
--- NOTE | 2024-11-30 21:40 | NUR ---
TAP WATER ENEMAS GIVEN TO PATIENT, PATIENT TOLERATED WELL, BM LIQUID LIGHT YELLOW IN COLOR. REVIEWED INSTRUCTIONS FOR 2 ROUND OF ENEMAS FOR 5AM, PATIENT VERBALIZED UNDERSTANDING.
--- NOTE | 2024-11-30 22:48 | PN ---
FOLLOWUP PROGRESS NOTE SUBJECTIVE: A 54-year-old male with a history of cirrhosis, who initially presented with renal dysfunction as well as significant hyponatremia. The patient's hyponatremia consistent with prerenal azotemia from the cirrhosis. The patient is scheduled for EGD later today and the patient is being seen as a followup visit for all of the above. REVIEW OF SYSTEMS: GENERAL: He is feeling improved. HEENT: No change in vision. No change in hearing. CARDIOVASCULAR: There are no current chest pain or palpitations. PULMONARY: No shortness of breath. GASTROINTESTINAL: He is tolerating a diet. MUSCULOSKELETAL: Complains of weakness. PHYSICAL EXAMINATION: VITAL SIGNS: Blood pressure is 112/72, pulse is 90, he is afebrile. GENERAL: Chronically ill male, much older than appearing. HEENT: Head is atraumatic. Pupils are equal, round and reactive to light. Oropharynx is without exudate. Nares clear. NECK: There is no JVP. There is no thyromegaly, no mass. CARDIOVASCULAR: Regular. There is no S3 or S4 gallop. LUNGS: Coarse with equal thoracic movement. ABDOMEN: Soft, nondistended, and nontender. EXTREMITIES: Reveal no clubbing or cyanosis. NEUROLOGICAL: He is awake. He is alert. LABORATORY DATA: Sodium 118, BUN 6, creatinine 0.5, hemoglobin 8.7, and hematocrit 24. IMPRESSION: Acute on chronic renal failure. Hyponatremia. End-stage cirrhosis. Anemia. PLAN: The patient's serum sodium continues to slowly improve. There is no need for 3% saline. The patient is encouraged with fluid restriction, which will be the mainstay of therapy for the hyponatremia. We will follow closely and make further recommendations accordingly. TID: [id number] RECEIPT: [id number]
[2024-12-01] VITALS (22 sets, daily range): BP systolic 89–137; BP diastolic 61–91; PULSE 82–117; RESP 11–21; TEMP 97.6–99; O2SAT 95–97
--- NOTE | 2024-12-01 04:15 | NUR ---
PATIENT SLEEPY, ATTEMPTED TO WALK TO BATHROOM. UNSTEADY ON FEET. REORIENTATED TO ROOM AND CALL LIGHT, REMINDED OF PENDING ENEMAS FOR MORNING 1 OF 2 TAP WATER ENEMA GIVEN TO PATIENT, TOLERATED WELL. STOOL LIGHT YELLOW IN COLOR, AND ALL LIQUID
--- NOTE | 2024-12-01 05:21 | NUR ---
2ND TAP WATER ENEMA GIVEN, PATIENT TOLERATED WELL, ASSISTED TO BEDSIDE COMMODE NO ABDOMINAL PAIN.
[2024-12-01 05:59] LABS: ASPARTATE AMINOTRANSFERASE 98.0 U/L (10-37); CREATININE 0.4 mg/dL (0.5-1.3); GLOMERULAR FILTR. RATE CALC 131.0 mL/min (>90); GLUCOSE,RANDOM 93.0 mg/dL (70-105); SODIUM SERUM 122.0 mmol/L (136-145); TOTAL PROTEIN, SERUM 5.5 g/dL (6.0-8.3); UREA NITROGEN, BLOOD 7.0 mg/dL (7-18)
[2024-12-01] MEDS: THIAMINE HCL 100 MG/ML 2ML VIAL IVP SCH (08:07)
--- NOTE | 2024-12-01 09:55 | PN ---
[facility] PROGRESS NOTE Date Patient Seen: Dec 01, 2024 Time of Visit: 09:55 Supervising Physician: THA SHAH MD Primary Care Physician: JOLLY BOOGIE MD Outpatient Specialists: [ ] Inpatient Consults: DR GINGER WAN, DR MARSHALL NEELY, BIS ASSESSMENT: Severe hyponatremia 2/2 beer potomania POA Suspected decompensated liver cirrhosis POA (MELD Score 14 points, 6% estimated three month mortality) Moderate portal hypertensive gastropathy on EGD 11/30/24 Status post EGD on 11/30/24 with findings of gastritis. Biopsied. Fluid overload likely in setting of liver cirrhosis Ascites s/p paracentesis with 3 L out Hyperchromic Anemia s/p EGD with Intermittent hematochezia Hypertension Hypomagnesemia Alcohol abuse INTERVAL HISTORY: Chart reviewed including all laboratory and imaging results. Patient assessed at bedside. Denies chest pain, palpitation, or shortness for breath. AAOx4. CIWA score 0. Hemodynamically stable. No major overnight events reported. Pending Colonoscopy for today. He is NPO status. stable to downgrade to Medical floor From pulmonary standpoint patient is stable at this time. We will sign off. Please reach to us should the need arise. On behalf of [facility] we are thankful for your team to let us participate in the care of this patient. We will be available if assistance in pulmonary critical care needed. REVIEW OF SYSTEMS: 12 point ROS reviewed with patient. Pertinent positives mentioned above. Otherwise negative. PHYSICAL EXAM: GENERAL: alert, weak, awake oriented x 3 HEENT: EOMI, Sclera non icteric, moist mucosa NECK: Supple, no JVD, trachea midline LUNGS: Diminished at bases. No wheezes HEART: Regular rate and rhythm. Normal S1 and S2, without murmurs ABD: Large volume ascites EXT: No clubbing cyanosis or edema NEURO: Alert and oriented to person, follows commands Vital Signs (last 8hr) Date Time Temp Pulse Resp B/P (MAP) Pulse Ox O2 Delivery O2 Flow Rate FiO2 12/01/24 08:00 98.4 82 15 111/73 97 Room Air 12/01/24 08:00 95 Room Air* 0 21 12/01/24 04:00 99.0 86 11 118/69 98 Room Air LABS: Hematology Labs: Test 11/30/24 03:08 Range/Units White Blood Count 10.8 4.8-10.8 K/uL Red Blood Count 2.47 L 4.50-6.20 MIL/uL Hemoglobin 8.7 L 14.0-18.0 g/dL Hematocrit 24.3 L 42-54 % Mean Corpuscular Volume 98.4 79-99 fL Mean Corpuscular Hemoglobin 35.2 H 27.0-33.0 pg Mean Corpuscular Hemoglobin Concent 35.8 32.0-36.0 g/dL Red Cell Distribution Width 16.7 H 11.0-15.5 % Platelet Count 151 130-400 K/uL Mean Platelet Volume 9.2 7.5-10.5 fL Nucleated Red Blood Cells 0.0 0.0-0.19 % Chemistry Labs: Test 12/01/24 05:27 11/30/24 16:21 11/30/24 08:11 11/30/24 03:08 Range/Units Sodium Level 122 L 136-145 mmol/L Potassium Level 3.1 L 3.5-5.1 mmol/L Chloride Level 91 L 101-111 mmol/L Carbon Dioxide Level 28 21-32 mmol/L Blood Urea Nitrogen 7 7-18 mg/dL Creatinine 0.4 L 0.5-1.3 mg/dL Glomerular Filtration Rate Calc 131 >90 mL/min Random Glucose 93 70-105 mg/dL Total Calcium 7.0 L 8.5-10.1 mg/dL Total Bilirubin 2.3 H 0.2-1.0 mg/dL Aspartate Amino Transf (AST/SGOT) 98 H 10-37 U/L Alanine Aminotransferase (ALT/SGPT) 27 12-78 U/L Alkaline Phosphatase 183 H 50-136 U/L Total Protein 5.5 L 6.0-8.3 g/dL Albumin 1.7 L 3.5-5.0 g/dL Ammonia 24 11-32 umol/L Amylase Level 56 25-115 U/L Lipase 80 H 16-77 U/L Magnesium Level 1.90 1.80-2.40 mg/dL DIAGNOSTICS / RADIOLOGY RESULTS: [ ] PLAN NEURO: Minimize central acting medications as possible. Maintain fall precautions, adequate lighting during the day PULMONARY: Supplemental 02 as needed. Maintain aspiration precautions at all times CARDIOVASCULAR: Follow hemodynamics. Vital signs per facility protocol GI & NUTRITION: Continue with nutritional support. Continue stool softeners and laxatives as needed. KIDNEYS & ELECTROLYTES: Strict monitoring of intake, output and overall fluid balance. Avoid nephrotoxic medications to the extent possible. Medications to be dosed according to renal function. Monitor electrolytes and replace as needed ENDOCRINE: Maintain blood glucose between 100-180 at all times. Hypoglycemia protocol in place INFECTIOUS DISEASE: Trend temperature, WBC and procalcitonin level Follow cultures, deescalate antibiotics as soon as possible. Panculture if new onset fever ONCOLOGY/HEMATOLOGY/COAGULATION: Monitor for s/s of bleeding Monitor hemoglobin, coagulation studies as needed SKIN: Pressure ulcer prevention per facility protocol Specialty mattress ORTHO/REHAB: Continue PT/OT Prophylaxis: Continue GI and DVT prophylaxis Code Status: Full Resuscitation Disposition: TBD Other: Total patient care time exceeds 35 minutes excluding all procedures. MARTHA FERRELL [facility] Dec 01, 2024 09:55
--- NOTE | 2024-12-01 10:02 | NUR ---
Patient being transferred to room 421. Report given to Bianca med/surg charge. All questions answered. Patient taken to GI suite by RN and luh for procedure. All patient belongings taken on bed including glasses, sternman, and clothing. Will be taken to room 421 by GI.
--- NOTE | 2024-12-01 10:28 | PN ---
[facility] PROGRESS NOTE Date of Service: Dec 01, 2024 Time of Service: 10:27 SUBJECTIVE: 11/29 patient is seen and examined at bedside, case discussed with the RN, no acute events overnight, the patient is alert oriented x3, however feels mildly dizzy, weak, noted to have mild tremor, BP 102/65, heart rate of 93, afebrile, saturating normal on room air, CBC with a hemoglobin 8.2, hematocrit 22.1, WBC 10.1, with a platelet count of 134, sodium 116, potassium 3.7, BUN of five, creatinine 0.6, calcium 7.2. Iron level of 41, magnesium 1.4. We will start the patient on CIWA protocol, patient is started on sodium chloride tablet 1 g p.o. q.6 hours per Nephrology, continue to follow input and recommendation. Follow critical care input and recommendation. Continue Protonix 40 mg IV b.i.d.. Follow stool occult blood, if positive we will request GI consultation. We will start the patient on Venofer. We will give 2 g of magnesium sulfate IV x1, follow a.m. labs. Follow amylase and lipase levels, follow troponin, patie nt complaining of midepigastric discomfort. 11/30 patient is seen and examined at bedside, case discussed with the RN, patient was getting mildly agitated, received a dose of Librium, the time of my visit he is comfortably in bed. EGD done, findings of mild gastritis. Plan for colonoscopy tomorrow. Blood pressure 119/77, heart rate of 116, he is saturating normal on room air, leukocytosis resolved, WBC 10.8, sodium level stable at 118, BUN and creatinine within normal range. Continue to follow critical care input and recommendation, follow GI input and recommendation, continue to replace IV per protocol, continue with CIWA protocol. 12/01 patient is seen and examined at bedside, case discussed with the RN, no acute events overnight, patient currently NPO, scheduled for colonoscopy today, BP 111/73, afebrile, he is saturating normal on room air, he is alert oriented x3, denies chest pain, no shortness a breath, no nausea, no vomiting, no signs of alcohol withdrawal. Sodium level today 122. REVIEW OF SYSTEMS CONSTITUTIONAL: Denies fevers, chills, or night sweats. No unintentional weight loss reported. Positive for generalized body weakness NEUROLOGICAL: Denies headache, amaurosis fugax, motor weakness, sensory deficit, vertigo/spinning sensation, gait abnormalities, or tremors. ENT: No hearing loss, otalgia, otorrhea, rhinitis, rhinorrhea, hoarseness, or sore throat. CARDIOVASCULAR: Denies any exertional angina, dyspnea on exertion, orthopnea, paroxysmal nocturnal dyspnea, palpitations, life-threatening arrhythmias, claudication. PULMONARY: Denies any shortness of breath, cough, phlegm/sputum, hemoptysis, pleuritic chest pain. GASTROINTESTINAL: Positive for nausea, vomiting, hematochezia, abdominal distention. Denied any melena, constipation, diarrhea GENITOURINARY: Denies frequency, urgency, nocturia, hematuria or incontinence (Storage/Irritative symptoms.) Low urinary stream, straining to void, urinary intermittency or hesitancy, splitting of the voiding stream, terminal dribbling. ENDOCRINOLOGIC: Denies polyuria, polydipsia, polyphagia or heat/cold intolerances. HEMATOLOGIC: Denies thrombophilia/previous clots, or coagulopathy/bleeding disorders. ONCOLOGIC: Denies personal history of malignancy. DERMATOLOGIC: Denies rashes or pruritus. PSYCHIATRIC: Denies any suicidal or homicidal ideation. Denies hallucinations. PHYSICAL EXAM GENERAL APPEARANCE: The patient is awake, alert, and oriented, in no acute cardiopulmonary distress. NEUROLOGICAL: Cranial nerves II-XII grossly intact. Motor is 5/5 in bilateral upper and lower extremities proximal to distal. No sensory deficits. HEENT: Face is symmetric. Pupils are equal and reactive. Extraocular movements are intact. NECK: Supple. No JVD. No thyromegaly. No submental, submandibular, pre- /postauricular, occipital or supraclavicular lymphadenopathy. CHEST: Normal chest expansion. No Telemetry. LUNGS: Absence of any rales, rhonchi or any wheezing. CARDIOVASCULAR: Regular. S1 and S2 normal. No appreciable rubs, murmurs or gallops. ABDOMEN: Soft, patient has abdominal distention noted. There is no guarding, no rigidity noted : Deferred. No Espinosa. EXTREMITIES: 2+ pitting edema in the lower extremity bilaterally and not cyanotic. No clubbing. Good capillary refill. SKIN: No skin breakdown. Vital Signs (last 8hr) Date Time Temp Pulse Resp B/P (MAP) Pulse Ox O2 Delivery O2 Flow Rate FiO2 12/01/24 08:00 98.4 82 15 111/73 97 Room Air 12/01/24 08:00 95 Room Air* 0 21 12/01/24 04:00 99.0 86 11 118/69 98 Room Air LABS: Laboratory: Test 12/01/24 05:27 11/30/24 16:21 11/30/24 08:11 11/30/24 03:08 Range/Units Sodium Level 122 L 136-145 mmol/L Potassium Level 3.1 L 3.5-5.1 mmol/L Chloride Level 91 L 101-111 mmol/L Carbon Dioxide Level 28 21-32 mmol/L Blood Urea Nitrogen 7 7-18 mg/dL Creatinine 0.4 L 0.5-1.3 mg/dL Glomerular Filtration Rate Calc 131 >90 mL/min Random Glucose 93 70-105 mg/dL Total Calcium 7.0 L 8.5-10.1 mg/dL Total Bilirubin 2.3 H 0.2-1.0 mg/dL Aspartate Amino Transf (AST/SGOT) 98 H 10-37 U/L Alanine Aminotransferase (ALT/SGPT) 27 12-78 U/L Alkaline Phosphatase 183 H 50-136 U/L Total Protein 5.5 L 6.0-8.3 g/dL Albumin 1.7 L 3.5-5.0 g/dL Ammonia 24 11-32 umol/L Amylase Level 56 25-115 U/L Lipase 80 H 16-77 U/L White Blood Count 10.8 4.8-10.8 K/uL Red Blood Count 2.47 L 4.50-6.20 MIL/uL Hemoglobin 8.7 L 14.0-18.0 g/dL Hematocrit 24.3 L 42-54 % Mean Corpuscular Volume 98.4 79-99 fL Mean Corpuscular Hemoglobin 35.2 H 27.0-33.0 pg Mean Corpuscular Hemoglobin Concent 35.8 32.0-36.0 g/dL Red Cell Distribution Width 16.7 H 11.0-15.5 % Platelet Count 151 130-400 K/uL Mean Platelet Volume 9.2 7.5-10.5 fL Nucleated Red Blood Cells 0.0 0.0-0.19 % Magnesium Level 1.90 1.80-2.40 mg/dL Current Medications Medications (Trade) Dose Ordered Sig/Ronak Route PRN Reason Start Time Stop Time Status Last Admin Dose Admin Acetaminophen (TYLenol 500MG TAB) 500 mg Q6H PRN PO MILD PAIN (1-3) 11/28/24 09:30 12/28/24 09:29 11/29/24 20:25 500 MG Ceftriaxone Sodium (ROCEphine 1G INJ) 1 gm Q24H IVPB 11/28/24 09:30 12/08/24 09:29 12/01/24 08:19 1 GM Chlordiazepoxide HCl (LIBrium 25 MG CAP) 25 mg Q2H PRN PO ALCOHOL WITHDRAWAL PROTOCOL 11/29/24 09:00 12/06/24 08:59 11/30/24 20:14 25 MG Chlordiazepoxide HCl (LIBrium 25 MG CAP) 50 mg Q1H PRN PO ALCOHOL WITHDRAWAL PROTOCOL 11/29/24 09:00 12/06/24 08:59 Famotidine (Pepcid 20mg Vial) 20 mg BID IV 11/28/24 21:00 11/28/24 09:59 DC Folic Acid (FOLic ACID 1 MG TABLET) 1 mg DAILY PO 11/29/24 09:00 12/29/24 08:59 11/29/24 07:52 1 MG Magnesium Sulfate 50 ml @ 0 mls/hr PROTOCOL IV 11/29/24 11:00 11/29/24 10:44 DC Magnesium Sulfate 50 ml @ 0 mls/hr PROTOCOL PRN IV hypomagnesium 11/28/24 09:30 12/28/24 09:29 11/29/24 17:48 25 MLS/HR Ondansetron HCl (zoFRAN 4MG INJ) 4 mg Q6H PRN IVP NAUSEA/VOMITING 11/28/24 18:00 12/28/24 17:59 Pantoprazole Sodium (PROTonix 40MG INJ) 40 mg BID IVP 11/28/24 10:00 12/28/24 09:59 12/01/24 08:05 40 MG Pharmacy Profile Note (Pharmacy Communication) 1 each PROTOCOL PRN MISC ETOH Withdrawal Score changes 11/29/24 09:00 12/06/24 08:59 Potassium Chloride 100 ml @ 100 mls/hr AD PRN IV POTASSIUM PROTOCOL 11/28/24 10:30 12/28/24 10:29 12/01/24 06:28 100 MLS/HR Potassium Chloride (K-Dur/Klor-Con 20meq) 20 meq AD PRN PO POTASSIUM PROTOCOL 11/28/24 10:30 12/28/24 10:29 Potassium Chloride (KCl 10% Elixir 20meq/15ml) 20 meq AD PRN PO POTASSIUM PROTOCOL 11/28/24 10:30 12/28/24 10:29 11/29/24 07:53 20 MEQ Sodium Chloride 1,000 ml @ 125 mls/hr Q8H IV 11/28/24 11:30 11/28/24 11:56 DC 11/28/24 11:37 125 MLS/HR Sodium Chloride (Sodium Chloride) 1,000 mg Q6H PO 11/28/24 14:00 12/28/24 13:59 11/30/24 20:14 1,000 MG Thiamine HCl (Vitamin B-1) 100 mg DAILY IVP 11/29/24 09:00 11/28/24 14:03 DC Thiamine HCl (Vitamin B-1) 300 mg DAILY IVP 12/01/24 09:00 12/29/24 14:29 12/01/24 08:07 300 MG Thiamine HCl (Vitamin B-1) 300 mg Q8H IVP 11/28/24 14:30 11/30/24 09:05 DC 11/30/24 06:25 300 MG DIAGNOSTICS / RADIOLOGY: [ ] ASSESSMENT: Severe hyponatremia Suspected decompensated liver cirrhosis POA Alcohol use Fluid overload likely in setting of liver cirrhosis Ascites Anemia Intermittent hematochezia Hypertension Hypomagnesemia PLAN: patient is seen and examined at bedside, case discussed with the RN, no acute events overnight, patient currently NPO, scheduled for colonoscopy today, BP 111/73, afebrile, he is saturating normal on room air, he is alert oriented x3, denies chest pain, no shortness a breath, no nausea, no vomiting, no signs of alcohol withdrawal. Sodium level today 122. NEURO: Minimize central acting medications as possible. Fall Precautions. Well lighted room through the day and minimize interruptions through the night to prevent acute delirium. PULMONARY: Supplemental 02 as needed BiPAP as necessary, for respiratory distress Titrate Fio2 to keep Spo2 > or = 90% DuoNebs and CPT as needed IS hourly while awake for pulmonary hygiene prn Out of bed to chair as tolerated Maintain aspiration precautions at all times CARDIOVASCULAR: Follow hemodynamics. Vital signs per facility protocol GI & NUTRITION: Continue nutritional support Aspirations precautions Prokinetic agents and laxatives as needed KIDNEYS & ELECTROLYTES: Strict monitoring of intake and output Daily weights Avoid nephrotoxic agents Monitor electrolytes and replace as needed Goal urine output of 30mL/hr or 0.5mL/kg/hr Medications to be dosed according to renal function. Avoid contrast if possible ENDOCRINE: Maintain blood glucose between 100-180 at all times. Insulin sliding scale for blood glucose management Hypoglycemia and hyperglycemia protocol in place INFECTIOUS DISEASE: Trend temperature, WBC and procalcitonin level Follow cultures, deescalate antibiotics as soon as possible. Panculture if new onset fever HEMATOLOGY & COAGULATION: Monitor H&H. Keep Hgb > 7 Transfuse 1 unit of PRBC for Hgb < 7 Transfuse 1 pack of platelets of platelets < 20, 000 Watch for any signs and symptoms of bleeding SKIN: Pressure ulcer prevention per facility protocol Specialty mattress as needed ORTHO/REHAB Continue PT/OT PRN: MEDICATIONS Tylenol 650 mg po every 4 hrs for fever zofran 4 mg IV every 6 hrs for n/v Hydralazine 5 mg IV every 4 hrs systolic pressure > 160 bowel regiment: lactulose 20 gm PO BID PRN constipation Supportive measures: Continue GI and DVT prophylaxis All questions answered time spent: > 35 min NELDA GRIJALVA MD Dec 01, 2024 10:28
--- NOTE | 2024-12-01 15:01 | NUR ---
ETOH Stefanie met with pt and discussed his alcohol abuse. Pt reports his drinking has increased gradually in the last 10yrs. pt states he made decision to quit 1 week ago, and he knows he can do it. pt states he believes he can do this on his own and denies need for referral. Sw educated him on resources available and provided him with resource list to use in future if needed.
--- NOTE | 2024-12-01 21:26 | PN ---
FOLLOWUP PROGRESS NOTE SUBJECTIVE: This is a 54-year-old male with a history of cirrhosis. The patient with a history of alcohol use. He presented to the hospital and found to have significant hyponatremia. The patient's serum sodium continues to slowly improve. The patient with hypervolemia, hyponatremia, and is encouraged with a fluid restriction. The patient is being seen as a followup visit for all of the above. GI workup is ongoing. REVIEW OF SYSTEMS: GENERAL: He is feeling weak and tired. HEENT: No change in vision. No change in hearing. CARDIOVASCULAR: There is no current chest pain or palpitations. PULMONARY: He denies shortness of breath. GASTROINTESTINAL: As described above. MUSCULOSKELETAL: Complains of weakness. PHYSICAL EXAMINATION: VITAL SIGNS: Blood pressure is 118/69, pulse 80. He is afebrile. GENERAL: He is a chronically ill male, much older than appearing. HEENT: Atraumatic. Pupils are equal, round, and reactive to light. Oropharynx is without exudate. Nares are clear. NECK: There is no JVP. There is no thyromegaly, no mass. CARDIOVASCULAR: Regular. There is no S3 or S4 gallop. LUNGS: Coarse with equal thoracic movement. ABDOMEN: Soft, nondistended, nontender. EXTREMITIES: There is no clubbing, no cyanosis. NEUROLOGICAL: He is awake and alert. LABORATORY DATA: Sodium is 122, potassium is 3, BUN is 7 with a creatinine of 0.4. IMPRESSION: 1. Renal dysfunction. 2. Hyponatremia. 3. Cirrhosis. 4. Anemia. PLAN: The patient's renal function remains stable. The patient with significant hyponatremia, which continues to slowly improve. The patient can be transferred out of the ICU from a renal standpoint. GI workup is ongoing. The patient is encouraged with the fluid restriction. We will follow closely. TID: [id number] RECEIPT: [id number]
[2024-12-02] VITALS (7 sets, daily range): BP systolic 104–161; BP diastolic 72–99; PULSE 95–121; RESP 17–20; TEMP 97.7–98.5; O2SAT 96–98
[2024-12-02 03:46] LABS: NUCLEATED RED BLOOD CELLS 0.0 % (0.0-0.19); PLATELET COUNT (AUTO) 160.0 K/uL (130-400); RED BLOOD CELL COUNT(AUTO) 2.53 MIL/uL (4.50-6.20); RED CELL DISTRIBUTION WIDTH 17.0 % (11.0-15.5); WHITE BLOOD COUNT (AUTO) 11.5 K/uL (4.8-10.8)
[2024-12-02 04:02] LABS: ASPARTATE AMINOTRANSFERASE 103.0 U/L (10-37); CREATININE 0.5 mg/dL (0.5-1.3); GLOMERULAR FILTR. RATE CALC 123.0 mL/min (>90); GLUCOSE,RANDOM 111.0 mg/dL (70-105); SODIUM SERUM 123.0 mmol/L (136-145); TOTAL PROTEIN, SERUM 5.8 g/dL (6.0-8.3); UREA NITROGEN, BLOOD 5.0 mg/dL (7-18)
[2024-12-02] MEDS: PoTASSium chloRIDE 20MEQ ER 20 MEQ ERTAB PO PRN (04:24)
[2024-12-02] MEDS: PoTASSium chloRIDE 20MEQ ER 20 MEQ ERTAB PO ONE (11:09)
--- NOTE | 2024-12-02 11:41 | PN ---
[facility] PROGRESS NOTE Date of Service: Dec 02, 2024 Time of Service: 11:39 SUBJECTIVE: 11/29 patient is seen and examined at bedside, case discussed with the RN, no acute events overnight, the patient is alert oriented x3, however feels mildly dizzy, weak, noted to have mild tremor, BP 102/65, heart rate of 93, afebrile, saturating normal on room air, CBC with a hemoglobin 8.2, hematocrit 22.1, WBC 10.1, with a platelet count of 134, sodium 116, potassium 3.7, BUN of five, creatinine 0.6, calcium 7.2. Iron level of 41, magnesium 1.4. We will start the patient on CIWA protocol, patient is started on sodium chloride tablet 1 g p.o. q.6 hours per Nephrology, continue to follow input and recommendation. Follow critical care input and recommendation. Continue Protonix 40 mg IV b.i.d.. Follow stool occult blood, if positive we will request GI consultation. We will start the patient on Venofer. We will give 2 g of magnesium sulfate IV x1, follow a.m. labs. Follow amylase and lipase levels, follow troponin, patie nt complaining of midepigastric discomfort. 11/30 patient is seen and examined at bedside, case discussed with the RN, patient was getting mildly agitated, received a dose of Librium, the time of my visit he is comfortably in bed. EGD done, findings of mild gastritis. Plan for colonoscopy tomorrow. Blood pressure 119/77, heart rate of 116, he is saturating normal on room air, leukocytosis resolved, WBC 10.8, sodium level stable at 118, BUN and creatinine within normal range. Continue to follow critical care input and recommendation, follow GI input and recommendation, continue to replace IV per protocol, continue with CIWA protocol. 12/01 patient is seen and examined at bedside, case discussed with the RN, no acute events overnight, patient currently NPO, scheduled for colonoscopy today, BP 111/73, afebrile, he is saturating normal on room air, he is alert oriented x3, denies chest pain, no shortness a breath, no nausea, no vomiting, no signs of alcohol withdrawal. Sodium level today 122. 12/02 patient is seen and examined at bedside, case discussed with the RN, no acute events overnight, hemodynamically stable, afebrile, he is saturating normal on room air, he is alert oriented x3, denies chest pain, no shortness a breath, no nausea, no vomiting, no signs of alcohol withdrawal. Sodium level today 123. Continue the patient on sodium chloride tablets 1 g p.o. q.6 hours, continue to follow Nephrology input and recommendation. Patient underwent colonoscopy 12/01/2024, tolerated the procedure well. We will request PT to evaluate the patient. REVIEW OF SYSTEMS CONSTITUTIONAL: Denies fevers, chills, or night sweats. No unintentional weight loss reported. Positive for generalized body weakness NEUROLOGICAL: Denies headache, amaurosis fugax, motor weakness, sensory deficit, vertigo/spinning sensation, gait abnormalities, or tremors. ENT: No hearing loss, otalgia, otorrhea, rhinitis, rhinorrhea, hoarseness, or sore throat. CARDIOVASCULAR: Denies any exertional angina, dyspnea on exertion, orthopnea, paroxysmal nocturnal dyspnea, palpitations, life-threatening arrhythmias, claudication. PULMONARY: Denies any shortness of breath, cough, phlegm/sputum, hemoptysis, pleuritic chest pain. GASTROINTESTINAL: Positive for nausea, vomiting, hematochezia, abdominal distention. Denied any melena, constipation, diarrhea GENITOURINARY: Denies frequency, urgency, nocturia, hematuria or incontinence (Storage/Irritative symptoms.) Low urinary stream, straining to void, urinary intermittency or hesitancy, splitting of the voiding stream, terminal dribbling. ENDOCRINOLOGIC: Denies polyuria, polydipsia, polyphagia or heat/cold intolerances. HEMATOLOGIC: Denies thrombophilia/previous clots, or coagulopathy/bleeding disorders. ONCOLOGIC: Denies personal history of malignancy. DERMATOLOGIC: Denies rashes or pruritus. PSYCHIATRIC: Denies any suicidal or homicidal ideation. Denies hallucinations. PHYSICAL EXAM GENERAL APPEARANCE: The patient is awake, alert, and oriented, in no acute cardiopulmonary distress. NEUROLOGICAL: Cranial nerves II-XII grossly intact. Motor is 5/5 in bilateral upper and lower extremities proximal to distal. No sensory deficits. HEENT: Face is symmetric. Pupils are equal and reactive. Extraocular movements are intact. NECK: Supple. No JVD. No thyromegaly. No submental, submandibular, pre- /postauricular, occipital or supraclavicular lymphadenopathy. CHEST: Normal chest expansion. No Telemetry. LUNGS: Absence of any rales, rhonchi or any wheezing. CARDIOVASCULAR: Regular. S1 and S2 normal. No appreciable rubs, murmurs or gallops. ABDOMEN: Soft, patient has abdominal distention noted. There is no guarding, no rigidity noted : Deferred. No Espinosa. EXTREMITIES: 2+ pitting edema in the lower extremity bilaterally and not cyanotic. No clubbing. Good capillary refill. SKIN: No skin breakdown. Vital Signs (last 8hr) Date Time Temp Pulse Resp B/P (MAP) Pulse Ox O2 Delivery O2 Flow Rate FiO2 12/02/24 08:00 98.4 95 17 109/78 96 Room Air 12/02/24 04:00 98.4 116 20 104/72 96 Room Air LABS: Laboratory: Test 12/02/24 03:28 11/30/24 16:21 Range/Units White Blood Count 11.5 H 4.8-10.8 K/uL Red Blood Count 2.53 L 4.50-6.20 MIL/uL Hemoglobin 8.9 L 14.0-18.0 g/dL Hematocrit 25.3 L 42-54 % Mean Corpuscular Volume 100.0 H 79-99 fL Mean Corpuscular Hemoglobin 35.2 H 27.0-33.0 pg Mean Corpuscular Hemoglobin Concent 35.2 32.0-36.0 g/dL Red Cell Distribution Width 17.0 H 11.0-15.5 % Platelet Count 160 130-400 K/uL Mean Platelet Volume 8.4 7.5-10.5 fL Nucleated Red Blood Cells 0.0 0.0-0.19 % Sodium Level 123 L 136-145 mmol/L Potassium Level 3.2 L 3.5-5.1 mmol/L Chloride Level 91 L 101-111 mmol/L Carbon Dioxide Level 25 21-32 mmol/L Blood Urea Nitrogen 5 L 7-18 mg/dL Creatinine 0.5 0.5-1.3 mg/dL Glomerular Filtration Rate Calc 123 >90 mL/min Random Glucose 111 H 70-105 mg/dL Total Calcium 7.2 L 8.5-10.1 mg/dL Magnesium Level 1.50 L 1.80-2.40 mg/dL Total Bilirubin 1.6 #H 0.2-1.0 mg/dL Aspartate Amino Transf (AST/SGOT) 103 H 10-37 U/L Alanine Aminotransferase (ALT/SGPT) 28 12-78 U/L Alkaline Phosphatase 192 H 50-136 U/L Total Protein 5.8 L 6.0-8.3 g/dL Albumin 1.6 L 3.5-5.0 g/dL Ammonia 24 11-32 umol/L Current Medications Medications (Trade) Dose Ordered Sig/Ronak Route PRN Reason Start Time Stop Time Status Last Admin Dose Admin Acetaminophen (TYLenol 500MG TAB) 500 mg Q6H PRN PO MILD PAIN (1-3) 11/28/24 09:30 12/28/24 09:29 11/29/24 20:25 500 MG Ceftriaxone Sodium (ROCEphine 1G INJ) 1 gm Q24H IVPB 11/28/24 09:30 12/08/24 09:29 12/02/24 11:08 1 GM Chlordiazepoxide HCl (LIBrium 25 MG CAP) 25 mg Q2H PRN PO ALCOHOL WITHDRAWAL PROTOCOL 11/29/24 09:00 12/06/24 08:59 11/30/24 20:14 25 MG Chlordiazepoxide HCl (LIBrium 25 MG CAP) 50 mg Q1H PRN PO ALCOHOL WITHDRAWAL PROTOCOL 11/29/24 09:00 12/06/24 08:59 Famotidine (Pepcid 20mg Vial) 20 mg BID IV 11/28/24 21:00 11/28/24 09:59 DC Folic Acid (FOLic ACID 1 MG TABLET) 1 mg DAILY PO 11/29/24 09:00 12/29/24 08:59 12/02/24 11:09 1 MG Magnesium Sulfate 50 ml @ 0 mls/hr PROTOCOL IV 11/29/24 11:00 11/29/24 10:44 DC Magnesium Sulfate 50 ml @ 0 mls/hr PROTOCOL IV 12/02/24 09:30 01/01/25 09:29 Magnesium Sulfate 50 ml @ 0 mls/hr PROTOCOL PRN IV hypomagnesium 11/28/24 09:30 12/02/24 09:14 DC 12/02/24 04:24 25 MLS/HR Ondansetron HCl (zoFRAN 4MG INJ) 4 mg Q6H PRN IVP NAUSEA/VOMITING 11/28/24 18:00 12/28/24 17:59 Pantoprazole Sodium (PROTonix 40MG INJ) 40 mg BID IVP 11/28/24 10:00 12/28/24 09:59 12/02/24 11:07 40 MG Pharmacy Profile Note (Pharmacy Communication) 1 each PROTOCOL PRN MISC ETOH Withdrawal Score changes 11/29/24 09:00 12/06/24 08:59 Potassium Chloride 100 ml @ 100 mls/hr AD PRN IV POTASSIUM PROTOCOL 11/28/24 10:30 12/28/24 10:29 12/01/24 06:28 100 MLS/HR Potassium Chloride (K-Dur/Klor-Con 20meq) 20 meq AD PRN PO POTASSIUM PROTOCOL 11/28/24 10:30 12/28/24 10:29 12/02/24 04:24 20 MEQ Potassium Chloride (KCl 10% Elixir 20meq/15ml) 20 meq AD PRN PO POTASSIUM PROTOCOL 11/28/24 10:30 12/28/24 10:29 11/29/24 07:53 20 MEQ Sodium Chloride 1,000 ml @ 125 mls/hr Q8H IV 11/28/24 11:30 11/28/24 11:56 DC 11/28/24 11:37 125 MLS/HR Sodium Chloride (Sodium Chloride) 1,000 mg Q6H PO 11/28/24 14:00 12/28/24 13:59 12/02/24 11:16 1,000 MG Thiamine HCl (Vitamin B-1) 100 mg DAILY IVP 11/29/24 09:00 11/28/24 14:03 DC Thiamine HCl (Vitamin B-1) 300 mg DAILY IVP 12/01/24 09:00 12/29/24 14:29 12/02/24 11:08 300 MG Thiamine HCl (Vitamin B-1) 300 mg Q8H IVP 11/28/24 14:30 11/30/24 09:05 DC 11/30/24 06:25 300 MG DIAGNOSTICS / RADIOLOGY: [ ] ASSESSMENT: Severe hyponatremia Suspected decompensated liver cirrhosis POA Alcohol use Fluid overload likely in setting of liver cirrhosis Ascites Anemia Intermittent hematochezia Hypertension Hypomagnesemia PLAN: patient is seen and examined at bedside, case discussed with the RN, no acute events overnight, hemodynamically stable, afebrile, he is saturating normal on room air, he is alert oriented x3, denies chest pain, no shortness a breath, no nausea, no vomiting, no signs of alcohol withdrawal. Sodium level today 123. Continue the patient on sodium chloride tablets 1 g p.o. q.6 hours, continue to follow Nephrology input and recommendation. Patient underwent colonoscopy 12/01/2024, tolerated the procedure well. We will request PT to evaluate the patient. NEURO: Minimize central acting medications as possible. Fall Precautions. Well lighted room through the day and minimize interruptions through the night to prevent acute delirium. PULMONARY: Supplemental 02 as needed BiPAP as necessary, for respiratory distress Titrate Fio2 to keep Spo2 > or = 90% DuoNebs and CPT as needed IS hourly while awake for pulmonary hygiene prn Out of bed to chair as tolerated Maintain aspiration precautions at all times CARDIOVASCULAR: Follow hemodynamics. Vital signs per facility protocol GI & NUTRITION: Continue nutritional support Aspirations precautions Prokinetic agents and laxatives as needed KIDNEYS & ELECTROLYTES: Strict monitoring of intake and output Daily weights Avoid nephrotoxic agents Monitor electrolytes and replace as needed Goal urine output of 30mL/hr or 0.5mL/kg/hr Medications to be dosed according to renal function. Avoid contrast if possible ENDOCRINE: Maintain blood glucose between 100-180 at all times. Insulin sliding scale for blood glucose management Hypoglycemia and hyperglycemia protocol in place INFECTIOUS DISEASE: Trend temperature, WBC and procalcitonin level Follow cultures, deescalate antibiotics as soon as possible. Panculture if new onset fever HEMATOLOGY & COAGULATION: Monitor H&H. Keep Hgb > 7 Transfuse 1 unit of PRBC for Hgb < 7 Transfuse 1 pack of platelets of platelets < 20, 000 Watch for any signs and symptoms of bleeding SKIN: Pressure ulcer prevention per facility protocol Specialty mattress as needed ORTHO/REHAB Continue PT/OT PRN: MEDICATIONS Tylenol 650 mg po every 4 hrs for fever zofran 4 mg IV every 6 hrs for n/v Hydralazine 5 mg IV every 4 hrs systolic pressure > 160 bowel regiment: lactulose 20 gm PO BID PRN constipation Supportive measures: Continue GI and DVT prophylaxis All questions answered time spent: > 35 min NELDA GRIJALVA MD Dec 02, 2024 11:41
--- NOTE | 2024-12-02 14:30 | HMCIMG ---
Abdominal ultrasound (limited, modified protocol). CLINICAL INDICATION: Ascites FINDINGS: Limited abdominal ultrasound was performed in order to detect ascites fluid. A low frequency probe was used to obtain survey images of all 4 quadrants of the abdomen. There are demonstrated ascites seen in all 4 quadrant the largest is seen in the right upper quadrant measuring 11.8 cm.. IMPRESSION: Large amount of ascites seen throughout the abdomen is amenable for paracentesis.
--- NOTE | 2024-12-02 16:01 | PN ---
GASTROENTEROLOGY PROGRESS NOTE Date of Visit: Dec 02, 2024 Time of Visit: 16:00 Events / Notes: [ Patient underwent an EGD and was found to have moderate portal hypertensive gastropathy, antral gastritis, no esophageal varices noted. Patient's vital signs have remained stable and he is afebrile. WBC of 10.8, hemoglobin 8.7, platelets 151. Chemistry significant for sodium of 118, chloride 89, BUN of 6, calcium 7.0. On exam, patient is awake, alert and oriented in no acute distress sitting at side of bed. His respirations are unlabored. BBS are clear. Abdomen is soft, nontender, and not distended. Active BS present. He reported having hematochezia for the past 5 days and would have hematochezia on and off. Poc discussed and recommendations for colonoscopy explained. All his questions were answered and he agreed to proceed with exam. 12/02/24: Patient had colonoscopy and was found to have a rectal polyp that was removed. Results given to patient and recommended he f/u at [facility] in 1-2 weeks for results. Further endoscopic evaluation will be determined at f/u. Patient v/u. ] Review of Systems: CONSTITUTIONAL: No malaise or change in sensation of wellbeing. ENMT: No rhinorrhea, otorrhea, sinus pain, ear ache. CARDIOVASCULAR: No angina, palpitations, orthopnea or paroxysmal dyspnea. RESPIRATORY: No SOB. GASTROINTESTINAL: No abdominal pain, nausea, vomiting, diarrhea, hematemesis, melena or change in the patient's habitual bowel movements consistency/number. GENITOURINARY: No dysuria, hematuria or change in bladder continence. MUSCULOSKELETAL: No new muscle pain or decrease in muscular strength. No new joint swelling, redness or tenderness. SKIN: No new rash. Physical Exam: GEN: Awake, alert, oriented in person, time and place, and in no acute distress. HEENT: Oral pharyngeal mucosa is pink, moist and within normal limits CHEST: Lung auscultation revealed normal breath sounds bilaterally. CARDIAC: . Heart sounds are regular. ABD: Soft, non-tender and mildly distended. No peritoneal signs on palpation. No organomegaly. Normal bowel sounds. EXT: No cyanosis or clubbing. No edema. SKIN: Intact. No rashes. JOINTS: No evidence of synovitis or acute arthritis. NEURO: Alert and oriented to name, place and person. No focal motor deficits. Normal speech. Gait is normal. Vital Signs (last 8hr) Date Time Temp Pulse Resp B/P (MAP) Pulse Ox O2 Delivery O2 Flow Rate FiO2 12/02/24 12:14 98.2 116 17 150/77 97 Room Air Laboratory: [ ] Laboratory: Test 12/02/24 03:28 11/30/24 16:21 Range/Units White Blood Count 11.5 H 4.8-10.8 K/uL Red Blood Count 2.53 L 4.50-6.20 MIL/uL Hemoglobin 8.9 L 14.0-18.0 g/dL Hematocrit 25.3 L 42-54 % Mean Corpuscular Volume 100.0 H 79-99 fL Mean Corpuscular Hemoglobin 35.2 H 27.0-33.0 pg Mean Corpuscular Hemoglobin Concent 35.2 32.0-36.0 g/dL Red Cell Distribution Width 17.0 H 11.0-15.5 % Platelet Count 160 130-400 K/uL Mean Platelet Volume 8.4 7.5-10.5 fL Nucleated Red Blood Cells 0.0 0.0-0.19 % Sodium Level 123 L 136-145 mmol/L Potassium Level 3.2 L 3.5-5.1 mmol/L Chloride Level 91 L 101-111 mmol/L Carbon Dioxide Level 25 21-32 mmol/L Blood Urea Nitrogen 5 L 7-18 mg/dL Creatinine 0.5 0.5-1.3 mg/dL Glomerular Filtration Rate Calc 123 >90 mL/min Random Glucose 111 H 70-105 mg/dL Total Calcium 7.2 L 8.5-10.1 mg/dL Magnesium Level 1.50 L 1.80-2.40 mg/dL Total Bilirubin 1.6 #H 0.2-1.0 mg/dL Aspartate Amino Transf (AST/SGOT) 103 H 10-37 U/L Alanine Aminotransferase (ALT/SGPT) 28 12-78 U/L Alkaline Phosphatase 192 H 50-136 U/L Total Protein 5.8 L 6.0-8.3 g/dL Albumin 1.6 L 3.5-5.0 g/dL Ammonia 24 11-32 umol/L Current Medications Medications (Trade) Dose Ordered Sig/Ronak Route PRN Reason Start Time Stop Time Status Last Admin Dose Admin Acetaminophen (TYLenol 500MG TAB) 500 mg Q6H PRN PO MILD PAIN (1-3) 11/28/24 09:30 12/28/24 09:29 12/02/24 15:03 500 MG Ceftriaxone Sodium (ROCEphine 1G INJ) 1 gm Q24H IVPB 11/28/24 09:30 12/08/24 09:29 12/02/24 11:08 1 GM Chlordiazepoxide HCl (LIBrium 25 MG CAP) 25 mg Q2H PRN PO ALCOHOL WITHDRAWAL PROTOCOL 11/29/24 09:00 12/06/24 08:59 11/30/24 20:14 25 MG Chlordiazepoxide HCl (LIBrium 25 MG CAP) 50 mg Q1H PRN PO ALCOHOL WITHDRAWAL PROTOCOL 11/29/24 09:00 12/06/24 08:59 Famotidine (Pepcid 20mg Vial) 20 mg BID IV 11/28/24 21:00 11/28/24 09:59 DC Folic Acid (FOLic ACID 1 MG TABLET) 1 mg DAILY PO 11/29/24 09:00 12/29/24 08:59 12/02/24 11:09 1 MG Magnesium Sulfate 50 ml @ 0 mls/hr PROTOCOL IV 11/29/24 11:00 11/29/24 10:44 DC Magnesium Sulfate 50 ml @ 0 mls/hr PROTOCOL IV 12/02/24 09:30 01/01/25 09:29 Magnesium Sulfate 50 ml @ 0 mls/hr PROTOCOL PRN IV hypomagnesium 11/28/24 09:30 12/02/24 09:14 DC 12/02/24 04:24 25 MLS/HR Ondansetron HCl (zoFRAN 4MG INJ) 4 mg Q6H PRN IVP NAUSEA/VOMITING 11/28/24 18:00 12/28/24 17:59 Pantoprazole Sodium (PROTonix 40MG INJ) 40 mg BID IVP 11/28/24 10:00 12/28/24 09:59 12/02/24 11:07 40 MG Pharmacy Profile Note (Pharmacy Communication) 1 each PROTOCOL PRN MISC ETOH Withdrawal Score changes 11/29/24 09:00 12/06/24 08:59 Potassium Chloride 100 ml @ 100 mls/hr AD PRN IV POTASSIUM PROTOCOL 11/28/24 10:30 12/28/24 10:29 12/01/24 06:28 100 MLS/HR Potassium Chloride (K-Dur/Klor-Con 20meq) 20 meq AD PRN PO POTASSIUM PROTOCOL 11/28/24 10:30 12/28/24 10:29 12/02/24 04:24 20 MEQ Potassium Chloride (KCl 10% Elixir 20meq/15ml) 20 meq AD PRN PO POTASSIUM PROTOCOL 11/28/24 10:30 12/28/24 10:29 11/29/24 07:53 20 MEQ Sodium Chloride 1,000 ml @ 125 mls/hr Q8H IV 11/28/24 11:30 11/28/24 11:56 DC 11/28/24 11:37 125 MLS/HR Sodium Chloride (Sodium Chloride) 1,000 mg Q6H PO 11/28/24 14:00 12/28/24 13:59 12/02/24 15:02 1,000 MG Thiamine HCl (Vitamin B-1) 100 mg DAILY IVP 11/29/24 09:00 11/28/24 14:03 DC Thiamine HCl (Vitamin B-1) 300 mg DAILY IVP 12/01/24 09:00 12/29/24 14:29 12/02/24 11:08 300 MG Thiamine HCl (Vitamin B-1) 300 mg Q8H IVP 11/28/24 14:30 11/30/24 09:05 DC 11/30/24 06:25 300 MG Diagnostics / Radiology: [COPY/PASTE HERE IF NO REPORTS PLEASE DELETE SECTION] Assessment: Hematochezia Anemia Liver Cirrhosis Ascites Plan: Case discussed with Dr. Molina Diet advanced as tolerated Patient is to f/u at [facility] in 1 week for results. Recommend therapeutic paracentesis. If more than 5 liters are removed, please give albumin 50 g IV Send ascites fluid for cell count with differential, albumin, total protein, cultures,and cytology Order CMP same day as paracentesis Based on the ascites results, then calculate SAAG (serum to ascites albumin gradient) = Serum albumin level ascites albumin level. If the SAAG is >1.1 g/dL, then the ascites is due to portal hypertension (liver diseases or cardiac diseases listed above). If the SAAG <1.1 g/dL, then the ascites is due to other causes (malignancy, TB, nephrotic syndrome, etc) If the total ascites protein is < 2.5 g/dL, then the high SAAG ascites is to due to liver disease. If the total ascites protein is > 2.5 g/dL, then the high SAAG ascites is due to cardiac causes. Once the patient is stable, please start diuretics with furosemide 40 mg po daily and spironolactone 100 mg po daily Recommend low sodium diet < 2000 mg per day. No need to restrict fluid intake in most cases 1Avoid SAYDA inhibitors and ARBs (angiotensin II receptor blockers) Thanks you for allowing us to participate in the care of this patient! FORTINO PRICE NP Dec 02, 2024 16:01
[2024-12-02] MEDS: MAGNESIUM 2GM PREMIX 50ML 50 ML IV SCH (17:59)
[2024-12-03] VITALS (9 sets, daily range): BP systolic 102–145; BP diastolic 66–92; PULSE 88–113; RESP 16–20; TEMP 97.3–98.1; O2SAT 97–99
--- NOTE | 2024-12-03 04:04 | PN ---
FOLLOWUP PROGRESS NOTE HISTORY OF PRESENT ILLNESS: This 54-year-old male with a history of cirrhosis, initially presented with renal dysfunction as well as significant hyponatremia. Serum sodium continues to slowly improve. The patient did have extensive GI workup, results of which are all noted and he is being seen as a followup visit for all of the above. REVIEW OF SYSTEMS: GENERAL: He is feeling improved. HEENT: No change in vision. No change in hearing. CARDIOVASCULAR: There is no current chest pains or palpitations. PULMONARY: Denies any shortness of breath. GASTROINTESTINAL: He is tolerating a diet. MUSCULOSKELETAL: He complains of weakness. PHYSICAL EXAMINATION: VITAL SIGNS: Blood pressure is 109/78, pulse 90. He is afebrile. GENERAL: Chronically old male, much older than appearing. HEENT: Atraumatic. Pupils are equal, round, and reactive to light. Oropharynx is without exudate. Nares clear. NECK: There is no JVP. There is no thyromegaly. No masses. CARDIOVASCULAR: Regular. There is no S3, S4 or gallop. LUNGS: Coarse with equal thoracic movement. ABDOMEN: Soft, nondistended, and nontender. EXTREMITIES: Reveal no clubbing. No cyanosis. NEUROLOGICAL: He is awake. He is alert. LABORATORY DATA: Sodium 123, potassium 3.2, BUN 5, creatinine 0.5, hemoglobin 8.9, hematocrit 25. IMPRESSION: Renal dysfunction. Hyponatremia. Anemia. History of cirrhosis. PLAN: The patient's serum sodium continues to slowly improve. The patient's GI workup is ongoing. Hemoglobin has remained fairly stable. Electrolytes have all been aggressively repleted. The patient is encouraged with this therapy. Once the patient is discharged, he will need to continue with the fluid restriction, which will be the mainstay of therapy for the hyponatremia. TID: [id number] RECEIPT: [id number]
[2024-12-03 04:48] LABS: NUCLEATED RED BLOOD CELLS 0.0 % (0.0-0.19); PLATELET COUNT (AUTO) 155.0 K/uL (130-400); RED BLOOD CELL COUNT(AUTO) 2.53 MIL/uL (4.50-6.20); RED CELL DISTRIBUTION WIDTH 16.8 % (11.0-15.5); WHITE BLOOD COUNT (AUTO) 11.8 K/uL (4.8-10.8)
[2024-12-03 05:06] LABS: ASPARTATE AMINOTRANSFERASE 125.0 U/L (10-37); CREATININE 0.5 mg/dL (0.5-1.3); GLOMERULAR FILTR. RATE CALC 123.0 mL/min (>90); GLUCOSE,RANDOM 106.0 mg/dL (70-105); SODIUM SERUM 124.0 mmol/L (136-145); TOTAL PROTEIN, SERUM 6.1 g/dL (6.0-8.3); UREA NITROGEN, BLOOD 6.0 mg/dL (7-18)
--- NOTE | 2024-12-03 11:19 | PN ---
[facility] PROGRESS NOTE Date of Service: Dec 03, 2024 Time of Service: 11:16 SUBJECTIVE: 11/29 patient is seen and examined at bedside, case discussed with the RN, no acute events overnight, the patient is alert oriented x3, however feels mildly dizzy, weak, noted to have mild tremor, BP 102/65, heart rate of 93, afebrile, saturating normal on room air, CBC with a hemoglobin 8.2, hematocrit 22.1, WBC 10.1, with a platelet count of 134, sodium 116, potassium 3.7, BUN of five, creatinine 0.6, calcium 7.2. Iron level of 41, magnesium 1.4. We will start the patient on CIWA protocol, patient is started on sodium chloride tablet 1 g p.o. q.6 hours per Nephrology, continue to follow input and recommendation. Follow critical care input and recommendation. Continue Protonix 40 mg IV b.i.d.. Follow stool occult blood, if positive we will request GI consultation. We will start the patient on Venofer. We will give 2 g of magnesium sulfate IV x1, follow a.m. labs. Follow amylase and lipase levels, follow troponin, patie nt complaining of midepigastric discomfort. 11/30 patient is seen and examined at bedside, case discussed with the RN, patient was getting mildly agitated, received a dose of Librium, the time of my visit he is comfortably in bed. EGD done, findings of mild gastritis. Plan for colonoscopy tomorrow. Blood pressure 119/77, heart rate of 116, he is saturating normal on room air, leukocytosis resolved, WBC 10.8, sodium level stable at 118, BUN and creatinine within normal range. Continue to follow critical care input and recommendation, follow GI input and recommendation, continue to replace IV per protocol, continue with CIWA protocol. 12/01 patient is seen and examined at bedside, case discussed with the RN, no acute events overnight, patient currently NPO, scheduled for colonoscopy today, BP 111/73, afebrile, he is saturating normal on room air, he is alert oriented x3, denies chest pain, no shortness a breath, no nausea, no vomiting, no signs of alcohol withdrawal. Sodium level today 122. 12/02 patient is seen and examined at bedside, case discussed with the RN, no acute events overnight, hemodynamically stable, afebrile, he is saturating normal on room air, he is alert oriented x3, denies chest pain, no shortness a breath, no nausea, no vomiting, no signs of alcohol withdrawal. Sodium level today 123. Continue the patient on sodium chloride tablets 1 g p.o. q.6 hours, continue to follow Nephrology input and recommendation. Patient underwent colonoscopy 12/01/2024, tolerated the procedure well. We will request PT to evaluate the patient. 12/03 patient is seen and examined at bedside, comfortably in bed, alert oriented x3. Status post EGD during this admission found to have moderate portal hypertensive gastropathy, antral gastritis, no esophageal varices noted. Patient also status post colonoscopy during this admission, down to have a rectal polyp, status post removal. Repeat abdominal ultrasound 12/02/24 again showing large volume ascites, IR consultation requested for repeat paracentesis. Start the patient on furosemide 10 mg p.o. daily and Aldactone 25 mg p.o. daily, close monitoring of the patient's blood pressure and electrolytes with replacements IV per protocol. The patient looks and feels very weak, he is requesting placement. Physical therapy to evaluate the patient. Case management consultation requested, we will follow. REVIEW OF SYSTEMS CONSTITUTIONAL: Denies fevers, chills, or night sweats. No unintentional weight loss reported. Positive for generalized body weakness NEUROLOGICAL: Denies headache, amaurosis fugax, motor weakness, sensory deficit, vertigo/spinning sensation, gait abnormalities, or tremors. ENT: No hearing loss, otalgia, otorrhea, rhinitis, rhinorrhea, hoarseness, or sore throat. CARDIOVASCULAR: Denies any exertional angina, dyspnea on exertion, orthopnea, paroxysmal nocturnal dyspnea, palpitations, life-threatening arrhythmias, claudication. PULMONARY: Denies any shortness of breath, cough, phlegm/sputum, hemoptysis, pleuritic chest pain. GASTROINTESTINAL: Positive for nausea, vomiting, hematochezia, abdominal distention. Denied any melena, constipation, diarrhea GENITOURINARY: Denies frequency, urgency, nocturia, hematuria or incontinence (Storage/Irritative symptoms.) Low urinary stream, straining to void, urinary intermittency or hesitancy, splitting of the voiding stream, terminal dribbling. ENDOCRINOLOGIC: Denies polyuria, polydipsia, polyphagia or heat/cold intolerances. HEMATOLOGIC: Denies thrombophilia/previous clots, or coagulopathy/bleeding disorders. ONCOLOGIC: Denies personal history of malignancy. DERMATOLOGIC: Denies rashes or pruritus. PSYCHIATRIC: Denies any suicidal or homicidal ideation. Denies hallucinations. PHYSICAL EXAM GENERAL APPEARANCE: The patient is awake, alert, and oriented, in no acute cardiopulmonary distress. NEUROLOGICAL: Cranial nerves II-XII grossly intact. Motor is 5/5 in bilateral upper and lower extremities proximal to distal. No sensory deficits. HEENT: Face is symmetric. Pupils are equal and reactive. Extraocular movements are intact. NECK: Supple. No JVD. No thyromegaly. No submental, submandibular, pre- /postauricular, occipital or supraclavicular lymphadenopathy. CHEST: Normal chest expansion. No Telemetry. LUNGS: Absence of any rales, rhonchi or any wheezing. CARDIOVASCULAR: Regular. S1 and S2 normal. No appreciable rubs, murmurs or gallops. ABDOMEN: Soft, patient has abdominal distention noted. There is no guarding, no rigidity noted : Deferred. No Espinosa. EXTREMITIES: 2+ pitting edema in the lower extremity bilaterally and not cyanotic. No clubbing. Good capillary refill. SKIN: No skin breakdown. Vital Signs (last 8hr) Date Time Temp Pulse Resp B/P (MAP) Pulse Ox O2 Delivery O2 Flow Rate FiO2 12/03/24 07:48 98.1 107 20 102/66 99 Room Air 21 12/03/24 04:00 97.5 104 18 121/79 96 Room Air 0.0 LABS: Laboratory: Test 12/03/24 04:32 Range/Units White Blood Count 11.8 H 4.8-10.8 K/uL Red Blood Count 2.53 L 4.50-6.20 MIL/uL Hemoglobin 8.9 L 14.0-18.0 g/dL Hematocrit 26.3 L 42-54 % Mean Corpuscular Volume 104.0 H 79-99 fL Mean Corpuscular Hemoglobin 35.2 H 27.0-33.0 pg Mean Corpuscular Hemoglobin Concent 33.8 32.0-36.0 g/dL Red Cell Distribution Width 16.8 H 11.0-15.5 % Platelet Count 155 130-400 K/uL Mean Platelet Volume 8.4 7.5-10.5 fL Nucleated Red Blood Cells 0.0 0.0-0.19 % Sodium Level 124 L 136-145 mmol/L Potassium Level 4.9 3.5-5.1 mmol/L Chloride Level 95 L 101-111 mmol/L Carbon Dioxide Level 27 21-32 mmol/L Blood Urea Nitrogen 6 L 7-18 mg/dL Creatinine 0.5 0.5-1.3 mg/dL Glomerular Filtration Rate Calc 123 >90 mL/min Random Glucose 106 H 70-105 mg/dL Total Calcium 6.9 L 8.5-10.1 mg/dL Magnesium Level 2.00 1.80-2.40 mg/dL Total Bilirubin 1.7 H 0.2-1.0 mg/dL Aspartate Amino Transf (AST/SGOT) 125 H 10-37 U/L Alanine Aminotransferase (ALT/SGPT) 37 12-78 U/L Alkaline Phosphatase 226 H 50-136 U/L Total Protein 6.1 6.0-8.3 g/dL Albumin 1.8 L 3.5-5.0 g/dL Current Medications Medications (Trade) Dose Ordered Sig/Ronak Route PRN Reason Start Time Stop Time Status Last Admin Dose Admin Acetaminophen (TYLenol 500MG TAB) 500 mg Q6H PRN PO MILD PAIN (1-3) 11/28/24 09:30 12/28/24 09:29 12/03/24 06:17 500 MG Ceftriaxone Sodium (ROCEphine 1G INJ) 1 gm Q24H IVPB 11/28/24 09:30 12/08/24 09:29 12/03/24 09:38 1 GM Chlordiazepoxide HCl (LIBrium 25 MG CAP) 25 mg Q2H PRN PO ALCOHOL WITHDRAWAL PROTOCOL 11/29/24 09:00 12/06/24 08:59 12/03/24 06:16 25 MG Chlordiazepoxide HCl (LIBrium 25 MG CAP) 50 mg Q1H PRN PO ALCOHOL WITHDRAWAL PROTOCOL 11/29/24 09:00 12/06/24 08:59 Famotidine (Pepcid 20mg Vial) 20 mg BID IV 11/28/24 21:00 11/28/24 09:59 DC Folic Acid (FOLic ACID 1 MG TABLET) 1 mg DAILY PO 11/29/24 09:00 12/29/24 08:59 12/03/24 09:37 1 MG Magnesium Sulfate 50 ml @ 0 mls/hr PROTOCOL IV 11/29/24 11:00 11/29/24 10:44 DC Magnesium Sulfate 50 ml @ 0 mls/hr PROTOCOL IV 12/02/24 09:30 01/01/25 09:29 12/02/24 17:59 25 MLS/HR Magnesium Sulfate 50 ml @ 0 mls/hr PROTOCOL PRN IV hypomagnesium 11/28/24 09:30 12/02/24 09:14 DC 12/02/24 04:24 25 MLS/HR Ondansetron HCl (zoFRAN 4MG INJ) 4 mg Q6H PRN IVP NAUSEA/VOMITING 11/28/24 18:00 12/28/24 17:59 Pantoprazole Sodium (PROTonix 40MG INJ) 40 mg BID IVP 11/28/24 10:00 12/28/24 09:59 12/03/24 09:38 40 MG Pharmacy Profile Note (Pharmacy Communication) 1 each PROTOCOL PRN MISC ETOH Withdrawal Score changes 11/29/24 09:00 12/06/24 08:59 Potassium Chloride 100 ml @ 100 mls/hr AD PRN IV POTASSIUM PROTOCOL 11/28/24 10:30 12/28/24 10:29 12/01/24 06:28 100 MLS/HR Potassium Chloride (K-Dur/Klor-Con 20meq) 20 meq AD PRN PO POTASSIUM PROTOCOL 11/28/24 10:30 12/28/24 10:29 12/02/24 19:59 20 MEQ Potassium Chloride (KCl 10% Elixir 20meq/15ml) 20 meq AD PRN PO POTASSIUM PROTOCOL 11/28/24 10:30 12/28/24 10:29 11/29/24 07:53 20 MEQ Sodium Chloride 1,000 ml @ 125 mls/hr Q8H IV 11/28/24 11:30 11/28/24 11:56 DC 11/28/24 11:37 125 MLS/HR Sodium Chloride (Sodium Chloride) 1,000 mg Q6H PO 11/28/24 14:00 12/28/24 13:59 12/03/24 09:37 1,000 MG Thiamine HCl (Vitamin B-1) 100 mg DAILY IVP 11/29/24 09:00 11/28/24 14:03 DC Thiamine HCl (Vitamin B-1) 300 mg DAILY IVP 12/01/24 09:00 12/29/24 14:29 12/03/24 09:38 300 MG Thiamine HCl (Vitamin B-1) 300 mg Q8H IVP 11/28/24 14:30 11/30/24 09:05 DC 11/30/24 06:25 300 MG DIAGNOSTICS / RADIOLOGY: [ ] ASSESSMENT: Severe hyponatremia Suspected decompensated liver cirrhosis POA Alcohol use Fluid overload likely in setting of liver cirrhosis Ascites Anemia Intermittent hematochezia Hypertension Hypomagnesemia PLAN: patient is seen and examined at bedside, comfortably in bed, alert oriented x3. Status post EGD during this admission found to have moderate portal hypertensive gastropathy, antral gastritis, no esophageal varices noted. Patient also status post colonoscopy during this admission, down to have a rectal polyp, status post removal. Repeat abdominal ultrasound 12/02/24 again showing large volume ascites, IR consultation requested for repeat paracentesis. Start the patient on furosemide 10 mg p.o. daily and Aldactone 25 mg p.o. daily, close monitoring of the patient's blood pressure and electrolytes with replacements IV per protocol. The patient looks and feels very weak, he is requesting placement. Physical therapy to evaluate the patient. Case management consultation requested, we will follow. NEURO: Minimize central acting medications as possible. Fall Precautions. Well lighted room through the day and minimize interruptions through the night to prevent acute delirium. PULMONARY: Supplemental 02 as needed BiPAP as necessary, for respiratory distress Titrate Fio2 to keep Spo2 > or = 90% DuoNebs and CPT as needed IS hourly while awake for pulmonary hygiene prn Out of bed to chair as tolerated Maintain aspiration precautions at all times CARDIOVASCULAR: Follow hemodynamics. Vital signs per facility protocol GI & NUTRITION: Continue nutritional support Aspirations precautions Prokinetic agents and laxatives as needed KIDNEYS & ELECTROLYTES: Strict monitoring of intake and output Daily weights Avoid nephrotoxic agents Monitor electrolytes and replace as needed Goal urine output of 30mL/hr or 0.5mL/kg/hr Medications to be dosed according to renal function. Avoid contrast if possible ENDOCRINE: Maintain blood glucose between 100-180 at all times. Insulin sliding scale for blood glucose management Hypoglycemia and hyperglycemia protocol in place INFECTIOUS DISEASE: Trend temperature, WBC and procalcitonin level Follow cultures, deescalate antibiotics as soon as possible. Panculture if new onset fever HEMATOLOGY & COAGULATION: Monitor H&H. Keep Hgb > 7 Transfuse 1 unit of PRBC for Hgb < 7 Transfuse 1 pack of platelets of platelets < 20, 000 Watch for any signs and symptoms of bleeding SKIN: Pressure ulcer prevention per facility protocol Specialty mattress as needed ORTHO/REHAB Continue PT/OT PRN: MEDICATIONS Tylenol 650 mg po every 4 hrs for fever zofran 4 mg IV every 6 hrs for n/v Hydralazine 5 mg IV every 4 hrs systolic pressure > 160 bowel regiment: lactulose 20 gm PO BID PRN constipation Supportive measures: Continue GI and DVT prophylaxis All questions answered time spent: > 35 min NELDA GRIJALVA MD Dec 03, 2024 11:19
[2024-12-03] MEDS: HYDROcodone/APAP 5/325 1 TAB TABLET PO ONE (23:54)
[2024-12-04 03:23] VITALS: BP 131/93; PULSE 97; RESP 16; TEMP 97.9
[2024-12-04 04:52] LABS: NUCLEATED RED BLOOD CELLS 0.0 % (0.0-0.19); PLATELET COUNT (AUTO) 154.0 K/uL (130-400); RED BLOOD CELL COUNT(AUTO) 2.52 MIL/uL (4.50-6.20); RED CELL DISTRIBUTION WIDTH 16.8 % (11.0-15.5); WHITE BLOOD COUNT (AUTO) 12.6 K/uL (4.8-10.8)
[2024-12-04 05:17] LABS: ASPARTATE AMINOTRANSFERASE 96.0 U/L (10-37); CREATININE 0.6 mg/dL (0.5-1.3); GLOMERULAR FILTR. RATE CALC 116.0 mL/min (>90); GLUCOSE,RANDOM 106.0 mg/dL (70-105); SODIUM SERUM 129.0 mmol/L (136-145); TOTAL PROTEIN, SERUM 6.1 g/dL (6.0-8.3); UREA NITROGEN, BLOOD 8.0 mg/dL (7-18)
[2024-12-04 08:00] VITALS: BP 123/77; PULSE 103; RESP 17; TEMP 97.8; O2SAT 99
[2024-12-04] MEDS: SPIRONOLACTONE 25 MG TAB PO SCH (09:37)
--- NOTE | 2024-12-04 10:13 | PN ---
NEPHROLOGY PROGRESS NOTE Date/Time Patient Seen: Dec 04, 2024 SUBJECTIVE: This 54-year-old male with a history of cirrhosis, initially presented with renal dysfunction as well as significant hyponatremia. Serum sodium continues to slowly improve. The patient did have extensive GI workup, results of which are all noted and he is being seen as a followup visit for all of the above. The patient's serum sodium continues to slowly improve. The patient's GI workup is ongoing. Hemoglobin has remained fairly stable. The patient is encouraged with this therapy. Once the patient is discharged, he will need to continue with the fluid restriction, which will be the mainstay of therapy for the hyponatremia. Sodium level continues to improve He was seen in the medical floor, in no acute distress REVIEW OF SYSTEMS: GENERAL: Negative for any nausea, vomiting, fevers, chills, or weight loss. NEUROLOGIC: Negative for any blurry vision, blind spots, double vision, facial asymmetry, dysphagia, dysarthria, hemiparesis, hemisensory deficits, vertigo, ataxia. HEENT: Negative for any head trauma, neck trauma, neck stiffness, photophobia, phonophobia, sinusitis, rhinitis. CARDIAC: Negative for any chest pain, dyspnea on exertion, paroxysmal nocturnal dyspnea, peripheral edema. PULMONARY: Negative for any shortness of breath, wheezing, COPD, or TB exposure. GASTROINTESTINAL: Negative for any abdominal pain, nausea, vomiting, bright red blood per rectum, melena. GENITOURINARY: Negative for any dysuria, hematuria, incontinence. INTEGUMENTARY: Negative for any rashes, cuts, insect bites. RHEUMATOLOGIC: Negative for any joint pains, photosensitive rashes, history of vasculitis or kidney problems. HEMATOLOGIC: Negative for any abnormal bruising, frequent infections or bleeding. Vital Signs (last 8hr) Date Time Temp Pulse Resp B/P (MAP) Pulse Ox O2 Delivery O2 Flow Rate FiO2 12/04/24 08:00 97.9 103 17 123/77 98 Room Air 21 12/04/24 03:23 97.9 97 16 131/93 97 Room Air PHYSICAL EXAM: GENERAL: Alert and oriented x 3. No acute distress. Well-nourished. EYES: EOMI. Anicteric. HENT: Moist mucous membranes. No scleral icterus. No cervical lymphadenopathy. LUNGS: Clear to auscultation bilaterally. No accessory muscle use. CARDIOVASCULAR: Regular rate and rhythm. No murmur. No JVD. ABDOMEN: Soft, non-tender and non-distended. No palpable masses. EXTREMITIES: No edema. Non-tender.?SKIN: No rashes or lesions. Warm. NEUROLOGIC: No focal neurological deficits. CN II-XII grossly intact, but not individually tested. PSYCHIATRIC: Cooperative. Appropriate mood and affect. Current Medications Medications (Trade) Dose Ordered Sig/Ronak Route PRN Reason Start Time Stop Time Status Last Admin Dose Admin Acetaminophen (TYLenol 500MG TAB) 500 mg Q6H PRN PO MILD PAIN (1-3) 11/28/24 09:30 12/28/24 09:29 12/03/24 23:19 500 MG Ceftriaxone Sodium (ROCEphine 1G INJ) 1 gm Q24H IVPB 11/28/24 09:30 12/08/24 09:29 12/04/24 09:37 1 GM Chlordiazepoxide HCl (LIBrium 25 MG CAP) 25 mg Q2H PRN PO ALCOHOL WITHDRAWAL PROTOCOL 11/29/24 09:00 12/06/24 08:59 12/03/24 06:16 25 MG Chlordiazepoxide HCl (LIBrium 25 MG CAP) 50 mg Q1H PRN PO ALCOHOL WITHDRAWAL PROTOCOL 11/29/24 09:00 12/06/24 08:59 Famotidine (Pepcid 20mg Vial) 20 mg BID IV 11/28/24 21:00 11/28/24 09:59 DC Folic Acid (FOLic ACID 1 MG TABLET) 1 mg DAILY PO 11/29/24 09:00 12/29/24 08:59 12/04/24 09:37 1 MG Magnesium Sulfate 50 ml @ 0 mls/hr PROTOCOL IV 11/29/24 11:00 11/29/24 10:44 DC Magnesium Sulfate 50 ml @ 0 mls/hr PROTOCOL IV 12/02/24 09:30 01/01/25 09:29 12/02/24 17:59 25 MLS/HR Magnesium Sulfate 50 ml @ 0 mls/hr PROTOCOL PRN IV hypomagnesium 11/28/24 09:30 12/02/24 09:14 DC 12/02/24 04:24 25 MLS/HR Midodrine (PROAMatine 5 MG TABLET) 5 mg TID PO 12/03/24 14:00 01/02/25 13:59 12/04/24 09:37 5 MG Ondansetron HCl (zoFRAN 4MG INJ) 4 mg Q6H PRN IVP NAUSEA/VOMITING 11/28/24 18:00 12/28/24 17:59 Pantoprazole Sodium (PROTonix 40MG INJ) 40 mg BID IVP 11/28/24 10:00 12/28/24 09:59 12/04/24 09:38 40 MG Pharmacy Profile Note (Pharmacy Communication) 1 each PROTOCOL PRN MISC ETOH Withdrawal Score changes 11/29/24 09:00 12/06/24 08:59 Potassium Chloride 100 ml @ 100 mls/hr AD PRN IV POTASSIUM PROTOCOL 11/28/24 10:30 12/28/24 10:29 12/01/24 06:28 100 MLS/HR Potassium Chloride (K-Dur/Klor-Con 20meq) 20 meq AD PRN PO POTASSIUM PROTOCOL 11/28/24 10:30 12/28/24 10:29 12/02/24 19:59 20 MEQ Potassium Chloride (KCl 10% Elixir 20meq/15ml) 20 meq AD PRN PO POTASSIUM PROTOCOL 11/28/24 10:30 12/28/24 10:29 11/29/24 07:53 20 MEQ Sodium Chloride 1,000 ml @ 125 mls/hr Q8H IV 11/28/24 11:30 11/28/24 11:56 DC 11/28/24 11:37 125 MLS/HR Sodium Chloride (Sodium Chloride) 1,000 mg Q6H PO 11/28/24 14:00 12/28/24 13:59 12/04/24 09:37 1,000 MG Spironolactone (Aldactone 25mg) 25 mg DAILY PO 12/04/24 09:00 01/03/25 08:59 12/04/24 09:37 25 MG Thiamine HCl (Vitamin B-1) 100 mg DAILY IVP 11/29/24 09:00 11/28/24 14:03 DC Thiamine HCl (Vitamin B-1) 300 mg DAILY IVP 12/01/24 09:00 12/29/24 14:29 12/04/24 09:37 300 MG Thiamine HCl (Vitamin B-1) 300 mg Q8H IVP 11/28/24 14:30 11/30/24 09:05 DC 11/30/24 06:25 300 MG LABORATORY: [ ] Hematology Labs: Test 12/04/24 04:37 Range/Units White Blood Count 12.6 H 4.8-10.8 K/uL Red Blood Count 2.52 L 4.50-6.20 MIL/uL Hemoglobin 9.1 L 14.0-18.0 g/dL Hematocrit 26.9 L 42-54 % Mean Corpuscular Volume 106.7 H 79-99 fL Mean Corpuscular Hemoglobin 36.1 H 27.0-33.0 pg Mean Corpuscular Hemoglobin Concent 33.8 32.0-36.0 g/dL Red Cell Distribution Width 16.8 H 11.0-15.5 % Platelet Count 154 130-400 K/uL Mean Platelet Volume 8.4 7.5-10.5 fL Nucleated Red Blood Cells 0.0 0.0-0.19 % Chemistry Labs: Test 12/04/24 04:37 Range/Units Sodium Level 129 L 136-145 mmol/L Potassium Level 4.8 3.5-5.1 mmol/L Chloride Level 99 L 101-111 mmol/L Carbon Dioxide Level 28 21-32 mmol/L Blood Urea Nitrogen 8 7-18 mg/dL Creatinine 0.6 0.5-1.3 mg/dL Glomerular Filtration Rate Calc 116 >90 mL/min Random Glucose 106 H 70-105 mg/dL Total Calcium 7.3 L 8.5-10.1 mg/dL Magnesium Level 1.80 1.80-2.40 mg/dL Total Bilirubin 1.5 H 0.2-1.0 mg/dL Aspartate Amino Transf (AST/SGOT) 96 H 10-37 U/L Alanine Aminotransferase (ALT/SGPT) 34 12-78 U/L Alkaline Phosphatase 198 H 50-136 U/L Total Protein 6.1 6.0-8.3 g/dL Albumin 1.8 L 3.5-5.0 g/dL DIAGNOSTICS / RADIOLOGY: [address] [address] IMAGING REPORT Signed PATIENT: CHAN GARDINER MR#: [id number] : 1970 SEX: M AGE: 54 LOCATION: [facility] ORDER [id number] STATUS: ADM IN REPORT#: [id number] SERVICE 1239 REASON: ASCITES ORDERING PHYSICIAN: NELDA GRIJALVA MD PROCEDURE: ABD WALL - US ABD LIMITED/ABD WALL Abdominal ultrasound (limited, modified protocol). CLINICAL INDICATION: Ascites FINDINGS: Limited abdominal ultrasound was performed in order to detect ascites fluid. A low frequency probe was used to obtain survey images of all 4 quadrants of the abdomen. There are demonstrated ascites seen in all 4 quadrant the largest is seen in the right upper quadrant measuring 11.8 cm.. IMPRESSION: Large amount of ascites seen throughout the abdomen is amenable for paracentesis. DICTATED BY: ALYCE MOLINA MD DATE: 12/02/241425 ELECTRONICALLY SIGNED BY: ALYCE MOLINA MD DATE: 12/02/241429 PATIENT: CHAN GARDINER MR#: [id number] : 1970 SEX: M AGE: 54 LOCATION: [facility] ORDER [id number] STATUS: ADM IN REPORT#: [id number] SERVICE 0953 REASON: assess for cirrhosis ORDERING PHYSICIAN: MANOLO TENORIO MD PROCEDURE: ABDRUQLTD - US ABDOMINAL RUQ\LTD EXAMINATION: ULTRASOUND OF THE ABDOMEN (LIMITED) WITH COLOR DOPPLER. CLINICAL HISTORY: Assess for cirrhosis. COMPARISON: CT abdomen and pelvis without contrast from the same day. TECHNIQUE: Real-time grayscale ultrasound images of the abdomen. In addition, color Doppler is medically necessary to perform in order to evaluate vascularity and blood flow. FINDINGS: Liver: Bulky in caliber, the right hepatic lobe measures 16.4 cm in the craniocaudal dimension. There is increased echogenicity of the hepatic parenchyma. There is no focal hepatic abnormality or intrahepatic biliary ductal dilatation. There is normal spectral Doppler of the main portal vein (PSV is 10 cm/s). Gallbladder: Within normal limits with normal wall thickness (0.3 cm). No hyperemia or pericholecystic free fluid. There is no cholelithiasis. There is sludge. Common bile duct is normal in caliber, measuring 0.4 cm. Pancreas: Head appears normal in caliber and echotexture. No calcification or dilated pancreatic duct. Body and tail is obscured by overlying bowel gas. The right kidney is normal in caliber, the right kidney measures 10.3 x 5.4 x 3.5 cm in craniocaudal, AP, and transverse dimensions respectively. There is normal renal cortical thickness, and cortical echogenicity. There is no renal calculus or hydronephrosis. There is moderate free fluid in the peritoneal cavity. IMPRESSION: Hepatomegaly with hepatic steatosis. Gallbladder sludge. Moderate ascites. No significant interval changes. /[place] DICTATED BY: MARIANN HOWARD Jr., MD DATE: 11/29/24130 ELECTRONICALLY SIGNED BY: MARIANN HOWARD Jr., MD DATE: 11/29/24130 PATIENT: CHAN GARDINER MR#: [id number] : 1970 SEX: M AGE: 54 LOCATION: [facility] ORDER 9 STATUS: ADM IN [facility] REPORT#: [id number] SERVICE 4 REASON: assess for CHF ORDERING PHYSICIAN: MANOLO TENORIO MD PROCEDURE: ECHO CMP - ECHO 2-D COMPLETE APPROVED REPORT EXAM: Two-dimensional and M-mode echocardiogram with Doppler and color Doppler. Study Details: HTN INDICATION ICD: assess for chf 2D Dimensions RVDd 3.7 cm LVEF(%) 78.8 (>50%) LVED Vol(simp.) 119.0 mL IVSd 1.1 (0.7-1.1cm) FS(%) 48 % LVES Vol(simp.) 60.1 mL LVDd 4.8 (3.8-5.6cm) Ao Root(2D) 3.3 (2.0-3.7cm) LVEF(%, simp.) 49 % PWd 0.8 (0.7-1.1cm) LVOT diam 1.8 (1.8-2.4cm) LA ESV INDEX (BP) 25.55 mL/m2 IVSs 1.4 cm LVDs 2.5 (2.5-4.0cm) PWs 1.7 cm Deformation Strain Apical 4 19.9 % Apical 2 15.7 % Apical 3 19.1 % Global Strain 18.3 % M-Mode Dimensions EPSS 0.4 cm LA (MM) 4.3 (1.6-4.0cm) Ao Root(MM) 2.9 (2.0-3.7cm) Aortic Valve AoV Vmax 1.8 m/s Ao Peak GR 12.7 mmHg LVOT Vmax 1.4 m/s AoV VTI 0.3 m Ao Mean GR 6.9 mmHg LVOT VTI 0.26 m KIRA (VMAX) 2.01 cm2 KIRA (VTI) 2.0 cm2 Mitral Valve MV E Vmax 68.4 cm/s DECEL Time 203 ms MV A Vmax 76.0 cm/s P 1/2 T 59 ms E/A ratio 0.9 MVA (PHT) 3.7 cm2 TDI E/E' Medial 7.6 E/E' Lateral 7.6 Medial E' Peak V 8.97 cm/s Lateral E' Peak V 8.97 cm/s Pulmonary Valve PV Vmax 1.8 m/s PV VTI 0.33 m PV Mean GR 5.2 mmHg PV Peak GR 12.3 mmHg Left Ventricle The left ventricle is normal size. There is normal LV segmental wall motion. There is normal left ventricular wall thickness. LVEF is >55%. The left ventricular diastolic function is normal. Right Ventricle The right ventricle is normal size. The right ventricular systolic function is normal. Atria The left atrium size is normal. The interatrial septum is intact with no evidence for an atrial septal defect. The right atrium size is normal. Aortic Valve Aortic valve is trileaflet. The aortic valve is mildly thickened. No aortic regurgitation is present. There is minimal valvular aortic stenosis. Mitral Valve The mitral valve is normal in structure. There is no evidence of significant mitral regurgitation. There is no mitral valve stenosis. Tricuspid Valve The tricuspid valve is normal in structure. There is no tricuspid valve regurgitation noted. Pulmonic Valve The pulmonary valve is normal in structure. There is trace pulmonic valvular regurgitation. Great Vessels The aortic root is normal in size. The ascending aorta is normal in size. The IVC is normal in size and collapses >50% with inspiration. Pericardium There is no pericardial effusion. Ascites is present. Conclusion LVEF is >55%. Aortic valve is trileaflet. The aortic valve is mildly thickened. DICTATED BY: GORDON JACINTO MD DATE: 11/28/24 1234 ELECTRONICALLY SIGNED BY: GORDON JACINTO MD DATE: 11/28/242106 PATIENT: CHAN GARDINER MR#: [id number] : 1970 SEX: M AGE: 54 LOCATION: [facility] ORDER 9 STATUS: ADM IN REPORT#: [id number] SERVICE 4 REASON: abdominal distention ORDERING PHYSICIAN: MANOLO TENORIO MD PROCEDURE: ABD PEL WO - CT ABDOMEN/PELVIS W/O CONTRAST EXAM: CT Abdomen and Pelvis Without IV contrast CLINICAL HISTORY: abdominal distention TECHNIQUE: Axial computed tomography images of the abdomen and pelvis without intravenous contrast. CONTRAST: No IV contrast. COMPARISON: None provided. FINDINGS: LUNG BASES: Minimal right pleural effusion. Dependent atelectatic changes in the left lower lobe. No pleural effusions are seen. LIVER: Diffuse fatty infiltration of the liver. GALLBLADDER AND BILE DUCTS: The gallbladder appears within normal limits. No radioopaque gallstones are seen. No biliary ductal dilatation is evident. PANCREAS: Unremarkable. SPLEEN: Tiny calcified granuloma in the spleen. ADRENAL GLANDS: Unremarkable. KIDNEYS, URETERS, AND BLADDER: The kidneys appear within normal limits. There is no hydronephrosis or hydroureter. No urinary calculi are seen. STOMACH AND BOWEL: Unremarkable appearance of the stomach and bowel. No evidence of bowel obstruction. No evidence suggesting enteritis or colitis. APPENDIX: No evidence of acute appendicitis on CT examination. PERITONEUM: Large ascites. Diffuse omental and mesenteric fat stranding. No free air. LYMPH NODES: No lymphadenopathy is evident. REPRODUCTIVE: Unremarkable as visualized. VASCULATURE: No evidence of abdominal aortic aneurysm. Atheromatous wall calcifications in the abdominal aorta and its branches. BONES AND SOFT TISSUE: No aggressive appearing osseous lesion. No acute osseous pathology is evident. Mild multilevel degenerative changes in the visualized spine. Diffuse edematous changes in the abdominal wall and scrotal wall. There are a few phleboliths in the pelvis. IMPRESSION: 1. Large ascites with omental and mesenteric fat stranding. 2. Diffuse edematous changes in the abdominal and scrotal wall. 3. Minimal right pleural effusion. /[place] DICTATED BY: MARIANN HOWARD Jr., MD DATE: 11/28/241148 ELECTRONICALLY SIGNED BY: MARIANN HOWARD Jr., MD DATE: 11/28/24 114 PATIENT: CHAN GARDINRE MR#: [id number] : 1970 SEX: M AGE: 54 LOCATION: [facility] ORDER 3 STATUS: REG REPORT#: [id number] SERVICE REASON: sob ORDERING PHYSICIAN: LEATHA GUERRA MD PROCEDURE: CXR1VW - CHEST 1VW EXAM: CR Chest, 1 View. CLINICAL HISTORY: sob COMPARISON: None provided. FINDINGS: LUNGS: There is no mass, infiltrate, or acute pulmonary abnormality. PLEURAL SPACES: No evidence of pleural effusion or pneumothorax. MEDIASTINUM: The cardiomediastinal silhouette is within normal limits. BONES: No aggressive appearing osseous lesion seen. IMPRESSION: No acute cardiopulmonary pathology is evident. /[place] DICTATED BY: MARIANN HOWARD Jr., MD DATE: 11/28/24942 ELECTRONICALLY SIGNED BY: MARIANN HOWARD Jr., MD DATE: 11/28/24942 ASSESSMENT: Severe hyponatremia Suspected decompensated liver cirrhosis POA Alcohol use Fluid overload likely in setting of liver cirrhosis Ascites Anemia Intermittent hematochezia Hypertension Hypomagnesemia PLAN: Labs, diagnostic, radiologic exams reviewed and interpreted by myself and supervising physician. We have reviewed external records in detail Continue with fluid restriction Require close monitoring of renal function and electrolytes Order CBC, CMP, and electrolytes in am BiPAP as necessary, for respiratory distress Monitor blood pressure adjust medication doses as needed Avoid hypotensive episodes May use Dilaudid 0.5 mg IV every 6 hours as needed for severe pain Monitor blood sugars Strict intake, output, and daily weight should be monitored Will continue to monitor renal function, anemia, electrolytes Treatment plan discussed with patient Questions were answered We have discussed with the other team physicians in detail about the care plan We will continue to monitor the patient closely ATTESTATION BY PHYSICIAN I have seen and examined the patient. I reviewed the documentation, medical decision making, and treatment plan as noted by the mid-level provider above. I agree with the findings and plan of care. HARJINDER CORTÉS MD, [facility] Dec 04, 2024 10:13
[2024-12-04 12:00] VITALS: BP 137/86; PULSE 107; RESP 19; TEMP 99.2
--- NOTE | 2024-12-04 12:54 | PN ---
[facility] PROGRESS NOTE Date of Service: Dec 04, 2024 Time of Service: 12:53 SUBJECTIVE: 11/29 patient is seen and examined at bedside, case discussed with the RN, no acute events overnight, the patient is alert oriented x3, however feels mildly dizzy, weak, noted to have mild tremor, BP 102/65, heart rate of 93, afebrile, saturating normal on room air, CBC with a hemoglobin 8.2, hematocrit 22.1, WBC 10.1, with a platelet count of 134, sodium 116, potassium 3.7, BUN of five, creatinine 0.6, calcium 7.2. Iron level of 41, magnesium 1.4. We will start the patient on CIWA protocol, patient is started on sodium chloride tablet 1 g p.o. q.6 hours per Nephrology, continue to follow input and recommendation. Follow critical care input and recommendation. Continue Protonix 40 mg IV b.i.d.. Follow stool occult blood, if positive we will request GI consultation. We will start the patient on Venofer. We will give 2 g of magnesium sulfate IV x1, follow a.m. labs. Follow amylase and lipase levels, follow troponin, patie nt complaining of midepigastric discomfort. 11/30 patient is seen and examined at bedside, case discussed with the RN, patient was getting mildly agitated, received a dose of Librium, the time of my visit he is comfortably in bed. EGD done, findings of mild gastritis. Plan for colonoscopy tomorrow. Blood pressure 119/77, heart rate of 116, he is saturating normal on room air, leukocytosis resolved, WBC 10.8, sodium level stable at 118, BUN and creatinine within normal range. Continue to follow critical care input and recommendation, follow GI input and recommendation, continue to replace IV per protocol, continue with CIWA protocol. 12/01 patient is seen and examined at bedside, case discussed with the RN, no acute events overnight, patient currently NPO, scheduled for colonoscopy today, BP 111/73, afebrile, he is saturating normal on room air, he is alert oriented x3, denies chest pain, no shortness a breath, no nausea, no vomiting, no signs of alcohol withdrawal. Sodium level today 122. 12/02 patient is seen and examined at bedside, case discussed with the RN, no acute events overnight, hemodynamically stable, afebrile, he is saturating normal on room air, he is alert oriented x3, denies chest pain, no shortness a breath, no nausea, no vomiting, no signs of alcohol withdrawal. Sodium level today 123. Continue the patient on sodium chloride tablets 1 g p.o. q.6 hours, continue to follow Nephrology input and recommendation. Patient underwent colonoscopy 12/01/2024, tolerated the procedure well. We will request PT to evaluate the patient. 12/03 patient is seen and examined at bedside, comfortably in bed, alert oriented x3. Status post EGD during this admission found to have moderate portal hypertensive gastropathy, antral gastritis, no esophageal varices noted. Patient also status post colonoscopy during this admission, down to have a rectal polyp, status post removal. Repeat abdominal ultrasound 12/02/24 again showing large volume ascites, IR consultation requested for repeat paracentesis. Start the patient on furosemide 10 mg p.o. daily and Aldactone 25 mg p.o. daily, close monitoring of the patient's blood pressure and electrolytes with replacements IV per protocol. The patient looks and feels very weak, he is requesting placement. Physical therapy to evaluate the patient. Case management consultation requested, we will follow. 12/04 patient is seen and examined at bedside, case discussed with the RN, no acute events overnight, alert oriented x3, hemodynamically stable, no chest pain, shortness shortness for breath, no nausea, no vomiting. Repeat abdominal ultrasound, showing reaccumulation of ascitic fluid, we will have IR repeat the. digital content marketing manager consulted for discharge plan to [facility] facility versus rehab. Patient alert oriented x3 watching TV at the time of my visit. REVIEW OF SYSTEMS CONSTITUTIONAL: Denies fevers, chills, or night sweats. No unintentional weight loss reported. Positive for generalized body weakness NEUROLOGICAL: Denies headache, amaurosis fugax, motor weakness, sensory deficit, vertigo/spinning sensation, gait abnormalities, or tremors. ENT: No hearing loss, otalgia, otorrhea, rhinitis, rhinorrhea, hoarseness, or sore throat. CARDIOVASCULAR: Denies any exertional angina, dyspnea on exertion, orthopnea, paroxysmal nocturnal dyspnea, palpitations, life-threatening arrhythmias, claudication. PULMONARY: Denies any shortness of breath, cough, phlegm/sputum, hemoptysis, pleuritic chest pain. GASTROINTESTINAL: Positive for nausea, vomiting, hematochezia, abdominal distention. Denied any melena, constipation, diarrhea GENITOURINARY: Denies frequency, urgency, nocturia, hematuria or incontinence (Storage/Irritative symptoms.) Low urinary stream, straining to void, urinary intermittency or hesitancy, splitting of the voiding stream, terminal dribbling. ENDOCRINOLOGIC: Denies polyuria, polydipsia, polyphagia or heat/cold intolerances. HEMATOLOGIC: Denies thrombophilia/previous clots, or coagulopathy/bleeding disorders. ONCOLOGIC: Denies personal history of malignancy. DERMATOLOGIC: Denies rashes or pruritus. PSYCHIATRIC: Denies any suicidal or homicidal ideation. Denies hallucinations. PHYSICAL EXAM GENERAL APPEARANCE: The patient is awake, alert, and oriented, in no acute cardiopulmonary distress. NEUROLOGICAL: Cranial nerves II-XII grossly intact. Motor is 5/5 in bilateral upper and lower extremities proximal to distal. No sensory deficits. HEENT: Face is symmetric. Pupils are equal and reactive. Extraocular movements are intact. NECK: Supple. No JVD. No thyromegaly. No submental, submandibular, pre- /postauricular, occipital or supraclavicular lymphadenopathy. CHEST: Normal chest expansion. No Telemetry. LUNGS: Absence of any rales, rhonchi or any wheezing. CARDIOVASCULAR: Regular. S1 and S2 normal. No appreciable rubs, murmurs or gallops. ABDOMEN: Soft, patient has abdominal distention noted. There is no guarding, no rigidity noted : Deferred. No Espinosa. EXTREMITIES: 2+ pitting edema in the lower extremity bilaterally and not cyanotic. No clubbing. Good capillary refill. SKIN: No skin breakdown. Vital Signs (last 8hr) Date Time Temp Pulse Resp B/P (MAP) Pulse Ox O2 Delivery O2 Flow Rate FiO2 12/04/24 12:00 99.1 107 19 137/86 98 Room Air 21 12/04/24 08:00 97.9 103 17 123/77 98 Room Air 21 LABS: Laboratory: Test 12/04/24 04:37 Range/Units White Blood Count 12.6 H 4.8-10.8 K/uL Red Blood Count 2.52 L 4.50-6.20 MIL/uL Hemoglobin 9.1 L 14.0-18.0 g/dL Hematocrit 26.9 L 42-54 % Mean Corpuscular Volume 106.7 H 79-99 fL Mean Corpuscular Hemoglobin 36.1 H 27.0-33.0 pg Mean Corpuscular Hemoglobin Concent 33.8 32.0-36.0 g/dL Red Cell Distribution Width 16.8 H 11.0-15.5 % Platelet Count 154 130-400 K/uL Mean Platelet Volume 8.4 7.5-10.5 fL Nucleated Red Blood Cells 0.0 0.0-0.19 % Sodium Level 129 L 136-145 mmol/L Potassium Level 4.8 3.5-5.1 mmol/L Chloride Level 99 L 101-111 mmol/L Carbon Dioxide Level 28 21-32 mmol/L Blood Urea Nitrogen 8 7-18 mg/dL Creatinine 0.6 0.5-1.3 mg/dL Glomerular Filtration Rate Calc 116 >90 mL/min Random Glucose 106 H 70-105 mg/dL Total Calcium 7.3 L 8.5-10.1 mg/dL Magnesium Level 1.80 1.80-2.40 mg/dL Total Bilirubin 1.5 H 0.2-1.0 mg/dL Aspartate Amino Transf (AST/SGOT) 96 H 10-37 U/L Alanine Aminotransferase (ALT/SGPT) 34 12-78 U/L Alkaline Phosphatase 198 H 50-136 U/L Total Protein 6.1 6.0-8.3 g/dL Albumin 1.8 L 3.5-5.0 g/dL Current Medications Medications (Trade) Dose Ordered Sig/Ornak Route PRN Reason Start Time Stop Time Status Last Admin Dose Admin Acetaminophen (TYLenol 500MG TAB) 500 mg Q6H PRN PO MILD PAIN (1-3) 11/28/24 09:30 12/28/24 09:29 12/03/24 23:19 500 MG Ceftriaxone Sodium (ROCEphine 1G INJ) 1 gm Q24H IVPB 11/28/24 09:30 12/08/24 09:29 12/04/24 09:37 1 GM Chlordiazepoxide HCl (LIBrium 25 MG CAP) 25 mg Q2H PRN PO ALCOHOL WITHDRAWAL PROTOCOL 11/29/24 09:00 12/06/24 08:59 12/03/24 06:16 25 MG Chlordiazepoxide HCl (LIBrium 25 MG CAP) 50 mg Q1H PRN PO ALCOHOL WITHDRAWAL PROTOCOL 11/29/24 09:00 12/06/24 08:59 Famotidine (Pepcid 20mg Vial) 20 mg BID IV 11/28/24 21:00 11/28/24 09:59 DC Folic Acid (FOLic ACID 1 MG TABLET) 1 mg DAILY PO 11/29/24 09:00 12/29/24 08:59 12/04/24 09:37 1 MG Magnesium Sulfate 50 ml @ 0 mls/hr PROTOCOL IV 11/29/24 11:00 11/29/24 10:44 DC Magnesium Sulfate 50 ml @ 0 mls/hr PROTOCOL IV 12/02/24 09:30 01/01/25 09:29 12/02/24 17:59 25 MLS/HR Magnesium Sulfate 50 ml @ 0 mls/hr PROTOCOL PRN IV hypomagnesium 11/28/24 09:30 12/02/24 09:14 DC 12/02/24 04:24 25 MLS/HR Midodrine (PROAMatine 5 MG TABLET) 5 mg TID PO 12/03/24 14:00 01/02/25 13:59 12/04/24 09:37 5 MG Ondansetron HCl (zoFRAN 4MG INJ) 4 mg Q6H PRN IVP NAUSEA/VOMITING 11/28/24 18:00 12/28/24 17:59 Pantoprazole Sodium (PROTonix 40MG INJ) 40 mg BID IVP 11/28/24 10:00 12/28/24 09:59 12/04/24 09:38 40 MG Pharmacy Profile Note (Pharmacy Communication) 1 each PROTOCOL PRN MISC ETOH Withdrawal Score changes 11/29/24 09:00 12/06/24 08:59 Potassium Chloride 100 ml @ 100 mls/hr AD PRN IV POTASSIUM PROTOCOL 11/28/24 10:30 12/28/24 10:29 12/01/24 06:28 100 MLS/HR Potassium Chloride (K-Dur/Klor-Con 20meq) 20 meq AD PRN PO POTASSIUM PROTOCOL 11/28/24 10:30 12/28/24 10:29 12/02/24 19:59 20 MEQ Potassium Chloride (KCl 10% Elixir 20meq/15ml) 20 meq AD PRN PO POTASSIUM PROTOCOL 11/28/24 10:30 12/28/24 10:29 11/29/24 07:53 20 MEQ Sodium Chloride 1,000 ml @ 125 mls/hr Q8H IV 11/28/24 11:30 11/28/24 11:56 DC 11/28/24 11:37 125 MLS/HR Sodium Chloride (Sodium Chloride) 1,000 mg Q6H PO 11/28/24 14:00 12/28/24 13:59 12/04/24 09:37 1,000 MG Spironolactone (Aldactone 25mg) 25 mg DAILY PO 12/04/24 09:00 01/03/25 08:59 12/04/24 09:37 25 MG Thiamine HCl (Vitamin B-1) 100 mg DAILY IVP 11/29/24 09:00 11/28/24 14:03 DC Thiamine HCl (Vitamin B-1) 300 mg DAILY IVP 12/01/24 09:00 12/29/24 14:29 12/04/24 09:37 300 MG Thiamine HCl (Vitamin B-1) 300 mg Q8H IVP 11/28/24 14:30 11/30/24 09:05 DC 11/30/24 06:25 300 MG DIAGNOSTICS / RADIOLOGY: [ ] ASSESSMENT: Severe hyponatremia Suspected decompensated liver cirrhosis POA Alcohol use Fluid overload likely in setting of liver cirrhosis Ascites Anemia Intermittent hematochezia Hypertension Hypomagnesemia PLAN: patient is seen and examined at bedside, case discussed with the RN, no acute events overnight, alert oriented x3, hemodynamically stable, no chest pain, shortness shortness for breath, no nausea, no vomiting. Repeat abdominal ultrasound, showing reaccumulation of ascitic fluid, we will have IR repeat the. digital content marketing manager consulted for discharge plan to [facility] facility versus rehab. NEURO: Minimize central acting medications as possible. Fall Precautions. Well lighted room through the day and minimize interruptions through the night to prevent acute delirium. PULMONARY: Supplemental 02 as needed BiPAP as necessary, for respiratory distress Titrate Fio2 to keep Spo2 > or = 90% DuoNebs and CPT as needed IS hourly while awake for pulmonary hygiene prn Out of bed to chair as tolerated Maintain aspiration precautions at all times CARDIOVASCULAR: Follow hemodynamics. Vital signs per facility protocol GI & NUTRITION: Continue nutritional support Aspirations precautions Prokinetic agents and laxatives as needed KIDNEYS & ELECTROLYTES: Strict monitoring of intake and output Daily weights Avoid nephrotoxic agents Monitor electrolytes and replace as needed Goal urine output of 30mL/hr or 0.5mL/kg/hr Medications to be dosed according to renal function. Avoid contrast if possible ENDOCRINE: Maintain blood glucose between 100-180 at all times. Insulin sliding scale for blood glucose management Hypoglycemia and hyperglycemia protocol in place INFECTIOUS DISEASE: Trend temperature, WBC and procalcitonin level Follow cultures, deescalate antibiotics as soon as possible. Panculture if new onset fever HEMATOLOGY & COAGULATION: Monitor H&H. Keep Hgb > 7 Transfuse 1 unit of PRBC for Hgb < 7 Transfuse 1 pack of platelets of platelets < 20, 000 Watch for any signs and symptoms of bleeding SKIN: Pressure ulcer prevention per facility protocol Specialty mattress as needed ORTHO/REHAB Continue PT/OT PRN: MEDICATIONS Tylenol 650 mg po every 4 hrs for fever zofran 4 mg IV every 6 hrs for n/v Hydralazine 5 mg IV every 4 hrs systolic pressure > 160 bowel regiment: lactulose 20 gm PO BID PRN constipation Supportive measures: Continue GI and DVT prophylaxis All questions answered time spent: > 35 min NELDA GRIJALVA MD Dec 04, 2024 12:54
[2024-12-04 16:00] VITALS: BP 129/85; PULSE 110; RESP 20; TEMP 97.6
[2024-12-04 20:00] VITALS: BP 160/99; PULSE 116; RESP 20; TEMP 98.3
[2024-12-04] MEDS: HYDROcodone/APAP 5/325 1 TAB TABLET PO PRN (20:29)
[2024-12-04 23:14] VITALS: BP 123/85; PULSE 105; RESP 16; TEMP 98.5
[2024-12-05 03:37] VITALS: BP 134/92; PULSE 106; RESP 20; TEMP 98.6
[2024-12-05 04:58] LABS: NUCLEATED RED BLOOD CELLS 0.0 % (0.0-0.19); PLATELET COUNT (AUTO) 156.0 K/uL (130-400); RED BLOOD CELL COUNT(AUTO) 2.55 MIL/uL (4.50-6.20); RED CELL DISTRIBUTION WIDTH 16.6 % (11.0-15.5); WHITE BLOOD COUNT (AUTO) 11.4 K/uL (4.8-10.8)
[2024-12-05 05:20] LABS: ASPARTATE AMINOTRANSFERASE 86.0 U/L (10-37); CREATININE 0.6 mg/dL (0.5-1.3); GLOMERULAR FILTR. RATE CALC 116.0 mL/min (>90); GLUCOSE,RANDOM 101.0 mg/dL (70-105); SODIUM SERUM 129.0 mmol/L (136-145); TOTAL PROTEIN, SERUM 6.0 g/dL (6.0-8.3); UREA NITROGEN, BLOOD 7.0 mg/dL (7-18)
[2024-12-05 08:00] VITALS: O2SAT 98
[2024-12-05 08:09] VITALS: BP 143/92; PULSE 114; RESP 18; TEMP 98.1
--- NOTE | 2024-12-05 09:03 | NUR ---
Pt refused PT today due to wanting to sleep. PT notified nursing.
--- NOTE | 2024-12-05 09:38 | PN ---
NEPHROLOGY PROGRESS NOTE Date/Time Patient Seen: Dec 05, 2024 SUBJECTIVE: This 54-year-old male with a history of cirrhosis, initially presented with renal dysfunction as well as significant hyponatremia. Serum sodium continues to slowly improve. The patient did have extensive GI workup, results of which are all noted and he is being seen as a followup visit for all of the above. The patient's serum sodium continues to slowly improve. The patient's GI workup is ongoing. Hemoglobin has remained fairly stable. The patient is encouraged with this therapy. Once the patient is discharged, he will need to continue with the fluid restriction, which will be the mainstay of therapy for the hyponatremia. Sodium level continues to improve Abdominal ultrasound showed large amount of ascites. Pending paracentesis by IR tomorrow He was seen in the medical floor, in no acute distress REVIEW OF SYSTEMS: GENERAL: Negative for any nausea, vomiting, fevers, chills, or weight loss. NEUROLOGIC: Negative for any blurry vision, blind spots, double vision, facial asymmetry, dysphagia, dysarthria, hemiparesis, hemisensory deficits, vertigo, ataxia. HEENT: Negative for any head trauma, neck trauma, neck stiffness, photophobia, phonophobia, sinusitis, rhinitis. CARDIAC: Negative for any chest pain, dyspnea on exertion, paroxysmal nocturnal dyspnea, peripheral edema. PULMONARY: Negative for any shortness of breath, wheezing, COPD, or TB exposure. GASTROINTESTINAL: Negative for any abdominal pain, nausea, vomiting, bright red blood per rectum, melena. GENITOURINARY: Negative for any dysuria, hematuria, incontinence. INTEGUMENTARY: Negative for any rashes, cuts, insect bites. RHEUMATOLOGIC: Negative for any joint pains, photosensitive rashes, history of vasculitis or kidney problems. HEMATOLOGIC: Negative for any abnormal bruising, frequent infections or b leeding. Vital Signs (last 8hr) Date Time Temp Pulse Resp B/P (MAP) Pulse Ox O2 Delivery O2 Flow Rate FiO2 12/05/24 08:09 98.1 114 18 143/92 99 Room Air 12/05/24 03:37 98.6 106 20 134/92 100 Room Air PHYSICAL EXAM: GENERAL: Alert and oriented x 3. No acute distress. Well-nourished. EYES: EOMI. Anicteric. HENT: Moist mucous membranes. No scleral icterus. No cervical lymphadenopathy. LUNGS: Clear to auscultation bilaterally. No accessory muscle use. CARDIOVASCULAR: Regular rate and rhythm. No murmur. No JVD. ABDOMEN: Soft, non-tender and non-distended. No palpable masses. EXTREMITIES: No edema. Non-tender. SKIN: No rashes or lesions. Warm. NEUROLOGIC: No focal neurological deficits. CN II-XII grossly intact, but not individually tested. PSYCHIATRIC: Cooperative. Appropriate mood and affect. Current Medications Medications (Trade) Dose Ordered Sig/Ronak Route PRN Reason Start Time Stop Time Status Last Admin Dose Admin Acetaminophen (TYLenol 500MG TAB) 500 mg Q6H PRN PO MILD PAIN (1-3) 11/28/24 09:30 12/28/24 09:29 12/03/24 23:19 500 MG Ceftriaxone Sodium (ROCEphine 1G INJ) 1 gm Q24H IVPB 11/28/24 09:30 12/08/24 09:29 12/04/24 09:37 1 GM Chlordiazepoxide HCl (LIBrium 25 MG CAP) 25 mg Q2H PRN PO ALCOHOL WITHDRAWAL PROTOCOL 11/29/24 09:00 12/06/24 08:59 12/03/24 06:16 25 MG Chlordiazepoxide HCl (LIBrium 25 MG CAP) 50 mg Q1H PRN PO ALCOHOL WITHDRAWAL PROTOCOL 11/29/24 09:00 12/06/24 08:59 Famotidine (Pepcid 20mg Vial) 20 mg BID IV 11/28/24 21:00 11/28/24 09:59 DC Folic Acid (FOLic ACID 1 MG TABLET) 1 mg DAILY PO 11/29/24 09:00 12/29/24 08:59 12/04/24 09:37 1 MG Magnesium Sulfate 50 ml @ 0 mls/hr PROTOCOL IV 11/29/24 11:00 11/29/24 10:44 DC Magnesium Sulfate 50 ml @ 0 mls/hr PROTOCOL IV 12/02/24 09:30 01/01/25 09:29 12/02/24 17:59 25 MLS/HR Magnesium Sulfate 50 ml @ 0 mls/hr PROTOCOL PRN IV hypomagnesium 11/28/24 09:30 12/02/24 09:14 DC 12/02/24 04:24 25 MLS/HR Midodrine (PROAMatine 5 MG TABLET) 5 mg TID PO 12/03/24 14:00 01/02/25 13:59 12/04/24 09:37 5 MG Ondansetron HCl (zoFRAN 4MG INJ) 4 mg Q6H PRN IVP NAUSEA/VOMITING 11/28/24 18:00 12/28/24 17:59 Pantoprazole Sodium (PROTonix 40MG INJ) 40 mg BID IVP 11/28/24 10:00 12/28/24 09:59 12/04/24 09:38 40 MG Pharmacy Profile Note (Pharmacy Communication) 1 each PROTOCOL PRN MISC ETOH Withdrawal Score changes 11/29/24 09:00 12/06/24 08:59 Potassium Chloride 100 ml @ 100 mls/hr AD PRN IV POTASSIUM PROTOCOL 11/28/24 10:30 12/28/24 10:29 12/01/24 06:28 100 MLS/HR Potassium Chloride (K-Dur/Klor-Con 20meq) 20 meq AD PRN PO POTASSIUM PROTOCOL 11/28/24 10:30 12/28/24 10:29 12/02/24 19:59 20 MEQ Potassium Chloride (KCl 10% Elixir 20meq/15ml) 20 meq AD PRN PO POTASSIUM PROTOCOL 11/28/24 10:30 12/28/24 10:29 11/29/24 07:53 20 MEQ Sodium Chloride 1,000 ml @ 125 mls/hr Q8H IV 11/28/24 11:30 11/28/24 11:56 DC 11/28/24 11:37 125 MLS/HR Sodium Chloride (Sodium Chloride) 1,000 mg Q6H PO 11/28/24 14:00 12/28/24 13:59 12/04/24 09:37 1,000 MG Spironolactone (Aldactone 25mg) 25 mg DAILY PO 12/04/24 09:00 01/03/25 08:59 12/04/24 09:37 25 MG Thiamine HCl (Vitamin B-1) 100 mg DAILY IVP 11/29/24 09:00 11/28/24 14:03 DC Thiamine HCl (Vitamin B-1) 300 mg DAILY IVP 12/01/24 09:00 12/29/24 14:29 12/04/24 09:37 300 MG Thiamine HCl (Vitamin B-1) 300 mg Q8H IVP 11/28/24 14:30 11/30/24 09:05 DC 11/30/24 06:25 300 MG LABORATORY: [ ] Hematology Labs: Test 12/05/24 04:33 Range/Units White Blood Count 11.4 H 4.8-10.8 K/uL Red Blood Count 2.55 L 4.50-6.20 MIL/uL Hemoglobin 8.9 L 14.0-18.0 g/dL Hematocrit 27.1 L 42-54 % Mean Corpuscular Volume 106.3 H 79-99 fL Mean Corpuscular Hemoglobin 34.9 H 27.0-33.0 pg Mean Corpuscular Hemoglobin Concent 32.8 32.0-36.0 g/dL Red Cell Distribution Width 16.6 H 11.0-15.5 % Platelet Count 156 130-400 K/uL Mean Platelet Volume 8.6 7.5-10.5 fL Nucleated Red Blood Cells 0.0 0.0-0.19 % Chemistry Labs: Test 12/05/24 04:33 Range/Units Sodium Level 129 L 136-145 mmol/L Potassium Level 4.4 3.5-5.1 mmol/L Chloride Level 98 L 101-111 mmol/L Carbon Dioxide Level 26 21-32 mmol/L Blood Urea Nitrogen 7 7-18 mg/dL Creatinine 0.6 0.5-1.3 mg/dL Glomerular Filtration Rate Calc 116 >90 mL/min Random Glucose 101 70-105 mg/dL Total Calcium 7.4 L 8.5-10.1 mg/dL Magnesium Level 1.50 L 1.80-2.40 mg/dL Total Bilirubin 1.5 H 0.2-1.0 mg/dL Aspartate Amino Transf (AST/SGOT) 86 H 10-37 U/L Alanine Aminotransferase (ALT/SGPT) 32 12-78 U/L Alkaline Phosphatase 179 H 50-136 U/L Total Protein 6.0 6.0-8.3 g/dL Albumin 1.7 L 3.5-5.0 g/dL DIAGNOSTICS / RADIOLOGY: [address] [address] IMAGING REPORT Signed PATIENT: CHAN GARDINER MR#: [id number] : 1970 SEX: M AGE: 54 LOCATION: 4DH ORDER 1240 STATUS: ADM IN REPORT#: [id number] SERVICE 1239 REASON: ASCITES ORDERING PHYSICIAN: NELDA GRIJALVA MD PROCEDURE: ABD WALL - US ABD LIMITED/ABD WALL Abdominal ultrasound (limited, modified protocol). CLINICAL INDICATION: Ascites FINDINGS: Limited abdominal ultrasound was performed in order to detect ascites fluid. A low frequency probe was used to obtain survey images of all 4 quadrants of the abdomen. There are demonstrated ascites seen in all 4 quadrant the largest is seen in the right upper quadrant measuring 11.8 cm.. IMPRESSION: Large amount of ascites seen throughout the abdomen is amenable for paracentesis. DICTATED BY: ALYCE MOLINA MD DATE: 12/02/24 142 ELECTRONICALLY SIGNED BY: ALYCE MOLINA MD DATE: 12/02/24 143 PATIENT: CHAN GARDINER MR#: [id number] : 1970 SEX: M AGE: 54 LOCATION: 2CH ORDER 0954 STATUS: ADM IN REPORT#: [id number] SERVICE 0953 REASON: assess for cirrhosis ORDERING PHYSICIAN: MANOLO TENORIO MD PROCEDURE: ABDRUQLTD - US ABDOMINAL RUQ\LTD EXAMINATION: ULTRASOUND OF THE ABDOMEN (LIMITED) WITH COLOR DOPPLER. CLINICAL HISTORY: Assess for cirrhosis. COMPARISON: CT abdomen and pelvis without contrast from the same day. TECHNIQUE: Real-time grayscale ultrasound images of the abdomen. In addition, color Doppler is medically necessary to perform in order to evaluate vascularity and blood flow. FINDINGS: Liver: Bulky in caliber, the right hepatic lobe measures 16.4 cm in the craniocaudal dimension. There is increased echogenicity of the hepatic parenchyma. There is no focal hepatic abnormality or intrahepatic biliary ductal dilatation. There is normal spectral Doppler of the main portal vein (PSV is 10 cm/s). Gallbladder: Within normal limits with normal wall thickness (0.3 cm). No hyperemia or pericholecystic free fluid. There is no cholelithiasis. There is sludge. Common bile duct is normal in caliber, measuring 0.4 cm. Pancreas: Head appears normal in caliber and echotexture. No calcification or dilated pancreatic duct. Body and tail is obscured by overlying bowel gas. The right kidney is normal in caliber, the right kidney measures 10.3 x 5.4 x 3.5 cm in craniocaudal, AP, and transverse dimensions respectively. There is normal renal cortical thickness, and cortical echogenicity. There is no renal calculus or hydronephrosis. There is moderate free fluid in the peritoneal cavity. IMPRESSION: Hepatomegaly with hepatic steatosis. Gallbladder sludge. Moderate ascites. No significant interval changes. /[place] DICTATED BY: MARIANN HOWARD Jr., MD DATE: 11/29/24130 ELECTRONICALLY SIGNED BY: MARIANN HOWARD Jr., MD DATE: 11/29/24130 PATIENT: CHAN GARDINER MR#: [id number] : 1970 SEX: M AGE: 54 LOCATION: [facility] ORDER 9 STATUS: ADM IN [facility] REPORT#: [id number] SERVICE 4 REASON: assess for CHF ORDERING PHYSICIAN: MANOLO TENORIO MD PROCEDURE: ECHO CMP - ECHO 2-D COMPLETE APPROVED REPORT EXAM: Two-dimensional and M-mode echocardiogram with Doppler and color Doppler. Study Details: HTN INDICATION ICD: assess for chf 2D Dimensions RVDd 3.7 cm LVEF(%) 78.8 (>50%) LVED Vol(simp.) 119.0 mL IVSd 1.1 (0.7-1.1cm) FS(%) 48 % LVES Vol(simp.) 60.1 mL LVDd 4.8 (3.8-5.6cm) Ao Root(2D) 3.3 (2.0-3.7cm) LVEF(%, simp.) 49 % PWd 0.8 (0.7-1.1cm) LVOT diam 1.8 (1.8-2.4cm) LA ESV INDEX (BP) 25.55 mL/m2 IVSs 1.4 cm LVDs 2.5 (2.5-4.0cm) PWs 1.7 cm Deformation Strain Apical 4 19.9 % Apical 2 15.7 % Apical 3 19.1 % Global Strain 18.3 % M-Mode Dimensions EPSS 0.4 cm LA (MM) 4.3 (1.6-4.0cm) Ao Root(MM) 2.9 (2.0-3.7cm) Aortic Valve AoV Vmax 1.8 m/s Ao Peak GR 12.7 mmHg LVOT Vmax 1.4 m/s AoV VTI 0.3 m Ao Mean GR 6.9 mmHg LVOT VTI 0.26 m KIRA (VMAX) 2.01 cm2 KIRA (VTI) 2.0 cm2 Mitral Valve MV E Vmax 68.4 cm/s DECEL Time 203 ms MV A Vmax 76.0 cm/s P 1/2 T 59 ms E/A ratio 0.9 MVA (PHT) 3.7 cm2 TDI E/E' Medial 7.6 E/E' Lateral 7.6 Medial E' Peak V 8.97 cm/s Lateral E' Peak V 8.97 cm/s Pulmonary Valve PV Vmax 1.8 m/s PV VTI 0.33 m PV Mean GR 5.2 mmHg PV Peak GR 12.3 mmHg Left Ventricle The left ventricle is normal size. There is normal LV segmental wall motion. There is normal left ventricular wall thickness. LVEF is >55%. The left ventricular diastolic function is normal. Right Ventricle The right ventricle is normal size. The right ventricular systolic function is normal. Atria The left atrium size is normal. The interatrial septum is intact with no evidence for an atrial septal defect. The right atrium size is normal. Aortic Valve Aortic valve is trileaflet. The aortic valve is mildly thickened. No aortic regurgitation is present. There is minimal valvular aortic stenosis. Mitral Valve The mitral valve is normal in structure. There is no evidence of significant mitral regurgitation. There is no mitral valve stenosis. Tricuspid Valve The tricuspid valve is normal in structure. There is no tricuspid valve regurgitation noted. Pulmonic Valve The pulmonary valve is normal in structure. There is trace pulmonic valvular regurgitation. Great Vessels The aortic root is normal in size. The ascending aorta is normal in size. The IVC is normal in size and collapses >50% with inspiration. Pericardium There is no pericardial effusion. Ascites is present. Conclusion LVEF is >55%. Aortic valve is trileaflet. The aortic valve is mildly thickened. DICTATED BY: GORDON JACINTO MD DATE: 11/28/24 1234 ELECTRONICALLY SIGNED BY: GORDON JACINTO MD DATE: 11/28/242106 PATIENT: CHAN GARDINER MR#: [id number] : 1970 SEX: M AGE: 54 LOCATION: [facility] ORDER 9 STATUS: ADM IN REPORT#: [id number] SERVICE 4 REASON: abdominal distention ORDERING PHYSICIAN: MANOLO TENORIO MD PROCEDURE: ABD PEL WO - CT ABDOMEN/PELVIS W/O CONTRAST EXAM: CT Abdomen and Pelvis Without IV contrast CLINICAL HISTORY: abdominal distention TECHNIQUE: Axial computed tomography images of the abdomen and pelvis without intravenous contrast. CONTRAST: No IV contrast. COMPARISON: None provided. FINDINGS: LUNG BASES: Minimal right pleural effusion. Dependent atelectatic changes in the left lower lobe. No pleural effusions are seen. LIVER: Diffuse fatty infiltration of the liver. GALLBLADDER AND BILE DUCTS: The gallbladder appears within normal limits. No radioopaque gallstones are seen. No biliary ductal dilatation is evident. PANCREAS: Unremarkable. SPLEEN: Tiny calcified granuloma in the spleen. ADRENAL GLANDS: Unremarkable. KIDNEYS, URETERS, AND BLADDER: The kidneys appear within normal limits. There is no hydronephrosis or hydroureter. No urinary calculi are seen. STOMACH AND BOWEL: Unremarkable appearance of the stomach and bowel. No evidence of bowel obstruction. No evidence suggesting enteritis or colitis. APPENDIX: No evidence of acute appendicitis on CT examination. PERITONEUM: Large ascites. Diffuse omental and mesenteric fat stranding. No free air. LYMPH NODES: No lymphadenopathy is evident. REPRODUCTIVE: Unremarkable as visualized. VASCULATURE: No evidence of abdominal aortic aneurysm. Atheromatous wall calcifications in the abdominal aorta and its branches. BONES AND SOFT TISSUE: No aggressive appearing osseous lesion. No acute osseous pathology is evident. Mild multilevel degenerative changes in the visualized spine. Diffuse edematous changes in the abdominal wall and scrotal wall. There are a few phleboliths in the pelvis. IMPRESSION: 1. Large ascites with omental and mesenteric fat stranding. 2. Diffuse edematous changes in the abdominal and scrotal wall. 3. Minimal right pleural effusion. /[place] DICTATED BY: MARIANN HOWARD Jr., MD DATE: 11/28/241148 ELECTRONICALLY SIGNED BY: MARIANN HOWARD Jr., MD DATE: 11/28/241148 PATIENT: CHAN GARDINER MR#: [id number] : 1970 SEX: M AGE: 54 LOCATION: [facility] ORDER 3 STATUS: REG REPORT#: [id number] SERVICE REASON: sob ORDERING PHYSICIAN: LEATHA GUERRA MD PROCEDURE: CXR1VW - CHEST 1VW EXAM: CR Chest, 1 View. CLINICAL HISTORY: sob COMPARISON: None provided. FINDINGS: LUNGS: There is no mass, infiltrate, or acute pulmonary abnormality. PLEURAL SPACES: No evidence of pleural effusion or pneumothorax. MEDIASTINUM: The cardiomediastinal silhouette is within normal limits. BONES: No aggressive appearing osseous lesion seen. IMPRESSION: No acute cardiopulmonary pathology is evident. /[place] DICTATED BY: MARIANN HOWARD Jr., MD DATE: 11/28/24942 ELECTRONICALLY SIGNED BY: MARIANN HOWARD Jr., MD DATE: 11/28/24942 ASSESSMENT: Severe hyponatremia Suspected decompensated liver cirrhosis POA Alcohol use Fluid overload likely in setting of liver cirrhosis Ascites Anemia Intermittent hematochezia Hypertension Hypomagnesemia PLAN: Labs, diagnostic, radiologic exams reviewed and interpreted by myself and supervising physician. We have reviewed external records in detail Pending paracentesis tomorrow Continue with fluid restriction Require close monitoring of renal function and electrolytes Order CBC, CMP, and electrolytes in am BiPAP as necessary, for respiratory distress Monitor blood pressure adjust medication doses as needed Avoid hypotensive episodes May use Dilaudid 0.5 mg IV every 6 hours as needed for severe pain Monitor blood sugars Strict intake, output, and daily weight should be monitored Will continue to monitor renal function, anemia, electrolytes Treatment plan discussed with patient Questions were answered We have discussed with the other team physicians in detail about the care plan We will continue to monitor the patient closely ATTESTATION BY PHYSICIAN I have seen and examined the patient. I reviewed the documentation, medical decision making, and treatment plan as noted by the mid-level provider above. I agree with the findings and plan of care. HARJINDER CORTÉS MD, [facility] Dec 05, 2024 09:38
--- NOTE | 2024-12-05 10:11 | PN ---
[facility] PROGRESS NOTE Date of Service: Dec 05, 2024 Time of Service: 10:10 SUBJECTIVE: 11/29 patient is seen and examined at bedside, case discussed with the RN, no acute events overnight, the patient is alert oriented x3, however feels mildly dizzy, weak, noted to have mild tremor, BP 102/65, heart rate of 93, afebrile, saturating normal on room air, CBC with a hemoglobin 8.2, hematocrit 22.1, WBC 10.1, with a platelet count of 134, sodium 116, potassium 3.7, BUN of five, creatinine 0.6, calcium 7.2. Iron level of 41, magnesium 1.4. We will start the patient on CIWA protocol, patient is started on sodium chloride tablet 1 g p.o. q.6 hours per Nephrology, continue to follow input and recommendation. Follow critical care input and recommendation. Continue Protonix 40 mg IV b.i.d.. Follow stool occult blood, if positive we will request GI consultation. We will start the patient on Venofer. We will give 2 g of magnesium sulfate IV x1, follow a.m. labs. Follow amylase and lipase levels, follow troponin, patie nt complaining of midepigastric discomfort. 11/30 patient is seen and examined at bedside, case discussed with the RN, patient was getting mildly agitated, received a dose of Librium, the time of my visit he is comfortably in bed. EGD done, findings of mild gastritis. Plan for colonoscopy tomorrow. Blood pressure 119/77, heart rate of 116, he is saturating normal on room air, leukocytosis resolved, WBC 10.8, sodium level stable at 118, BUN and creatinine within normal range. Continue to follow critical care input and recommendation, follow GI input and recommendation, continue to replace IV per protocol, continue with CIWA protocol. 12/01 patient is seen and examined at bedside, case discussed with the RN, no acute events overnight, patient currently NPO, scheduled for colonoscopy today, BP 111/73, afebrile, he is saturating normal on room air, he is alert oriented x3, denies chest pain, no shortness a breath, no nausea, no vomiting, no signs of alcohol withdrawal. Sodium level today 122. 12/02 patient is seen and examined at bedside, case discussed with the RN, no acute events overnight, hemodynamically stable, afebrile, he is saturating normal on room air, he is alert oriented x3, denies chest pain, no shortness a breath, no nausea, no vomiting, no signs of alcohol withdrawal. Sodium level today 123. Continue the patient on sodium chloride tablets 1 g p.o. q.6 hours, continue to follow Nephrology input and recommendation. Patient underwent colonoscopy 12/01/2024, tolerated the procedure well. We will request PT to evaluate the patient. 12/03 patient is seen and examined at bedside, comfortably in bed, alert oriented x3. Status post EGD during this admission found to have moderate portal hypertensive gastropathy, antral gastritis, no esophageal varices noted. Patient also status post colonoscopy during this admission, down to have a rectal polyp, status post removal. Repeat abdominal ultrasound 12/02/24 again showing large volume ascites, IR consultation requested for repeat paracentesis. Start the patient on furosemide 10 mg p.o. daily and Aldactone 25 mg p.o. daily, close monitoring of the patient's blood pressure and electrolytes with replacements IV per protocol. The patient looks and feels very weak, he is requesting placement. Physical therapy to evaluate the patient. Case management consultation requested, we will follow. 12/04 patient is seen and examined at bedside, case discussed with the RN, no acute events overnight, alert oriented x3, hemodynamically stable, no chest pain, shortness shortness for breath, no nausea, no vomiting. Repeat abdominal ultrasound, showing reaccumulation of ascitic fluid, we will have IR repeat the. computer project manager consulted for discharge plan to long term facility versus rehab. Patient alert oriented x3 watching TV at the time of my visit. 12/05 patient is seen and examined at bedside, case discussed with the RN, no acute events overnight, alert oriented x3, hemodynamically stable, no chest pain, shortness shortness for breath, no nausea, no vomiting. Repeat abdominal ultrasound, showing reaccumulation of ascitic fluid, requested ultrasound-guided paracentesis to be done by IR tomorrow. computer project manager consulted for discharge plan to long term facility versus rehab. REVIEW OF SYSTEMS CONSTITUTIONAL: Denies fevers, chills, or night sweats. No unintentional weight loss reported. Positive for generalized body weakness NEUROLOGICAL: Denies headache, amaurosis fugax, motor weakness, sensory deficit, vertigo/spinning sensation, gait abnormalities, or tremors. ENT: No hearing loss, otalgia, otorrhea, rhinitis, rhinorrhea, hoarseness, or sore throat. CARDIOVASCULAR: Denies any exertional angina, dyspnea on exertion, orthopnea, paroxysmal nocturnal dyspnea, palpitations, life-threatening arrhythmias, claudication. PULMONARY: Denies any shortness of breath, cough, phlegm/sputum, hemoptysis, pleuritic chest pain. GASTROINTESTINAL: Positive for nausea, vomiting, hematochezia, abdominal distention. Denied any melena, constipation, diarrhea GENITOURINARY: Denies frequency, urgency, nocturia, hematuria or incontinence (Storage/Irritative symptoms.) Low urinary stream, straining to void, urinary intermittency or hesitancy, splitting of the voiding stream, terminal dribbling. ENDOCRINOLOGIC: Denies polyuria, polydipsia, polyphagia or heat/cold intolerances. HEMATOLOGIC: Denies thrombophilia/previous clots, or coagulopathy/bleeding disorders. ONCOLOGIC: Denies personal history of malignancy. DERMATOLOGIC: Denies rashes or pruritus. PSYCHIATRIC: Denies any suicidal or homicidal ideation. Denies hallucinations. PHYSICAL EXAM GENERAL APPEARANCE: The patient is awake, alert, and oriented, in no acute cardiopulmonary distress. NEUROLOGICAL: Cranial nerves II-XII grossly intact. Motor is 5/5 in bilateral upper and lower extremities proximal to distal. No sensory deficits. HEENT: Face is symmetric. Pupils are equal and reactive. Extraocular movements are intact. NECK: Supple. No JVD. No thyromegaly. No submental, submandibular, pre- /postauricular, occipital or supraclavicular lymphadenopathy. CHEST: Normal chest expansion. No Telemetry. LUNGS: Absence of any rales, rhonchi or any wheezing. CARDIOVASCULAR: Regular. S1 and S2 normal. No appreciable rubs, murmurs or gallops. ABDOMEN: Soft, patient has abdominal distention noted. There is no guarding, no rigidity noted : Deferred. No Espinosa. EXTREMITIES: 2+ pitting edema in the lower extremity bilaterally and not cyanotic. No clubbing. Good capillary refill. SKIN: No skin breakdown. Vital Signs (last 8hr) Date Time Temp Pulse Resp B/P (MAP) Pulse Ox O2 Delivery O2 Flow Rate FiO2 12/05/24 09:38 143/92 12/05/24 08:09 98.1 114 18 143/92 99 Room Air 12/05/24 03:37 98.6 106 20 134/92 100 Room Air LABS: Laboratory: Test 12/05/24 04:33 Range/Units White Blood Count 11.4 H 4.8-10.8 K/uL Red Blood Count 2.55 L 4.50-6.20 MIL/uL Hemoglobin 8.9 L 14.0-18.0 g/dL Hematocrit 27.1 L 42-54 % Mean Corpuscular Volume 106.3 H 79-99 fL Mean Corpuscular Hemoglobin 34.9 H 27.0-33.0 pg Mean Corpuscular Hemoglobin Concent 32.8 32.0-36.0 g/dL Red Cell Distribution Width 16.6 H 11.0-15.5 % Platelet Count 156 130-400 K/uL Mean Platelet Volume 8.6 7.5-10.5 fL Nucleated Red Blood Cells 0.0 0.0-0.19 % Sodium Level 129 L 136-145 mmol/L Potassium Level 4.4 3.5-5.1 mmol/L Chloride Level 98 L 101-111 mmol/L Carbon Dioxide Level 26 21-32 mmol/L Blood Urea Nitrogen 7 7-18 mg/dL Creatinine 0.6 0.5-1.3 mg/dL Glomerular Filtration Rate Calc 116 >90 mL/min Random Glucose 101 70-105 mg/dL Total Calcium 7.4 L 8.5-10.1 mg/dL Magnesium Level 1.50 L 1.80-2.40 mg/dL Total Bilirubin 1.5 H 0.2-1.0 mg/dL Aspartate Amino Transf (AST/SGOT) 86 H 10-37 U/L Alanine Aminotransferase (ALT/SGPT) 32 12-78 U/L Alkaline Phosphatase 179 H 50-136 U/L Total Protein 6.0 6.0-8.3 g/dL Albumin 1.7 L 3.5-5.0 g/dL Current Medications Medications (Trade) Dose Ordered Sig/Ronak Route PRN Reason Start Time Stop Time Status Last Admin Dose Admin Acetaminophen (TYLenol 500MG TAB) 500 mg Q6H PRN PO MILD PAIN (1-3) 11/28/24 09:30 12/28/24 09:29 12/05/24 04:54 500 MG Acetaminophen/ Hydrocodone Bitart (NORco 5/325MG) 1 tab Q6H PRN PO MODERATE PAIN (4-6) 12/04/24 20:30 12/09/24 20:29 12/05/24 09:52 1 TAB Carvedilol (Coreg 3.125MG) 3.125 mg BID PO 12/05/24 09:00 01/04/25 08:59 12/05/24 09:38 3.125 MG Ceftriaxone Sodium (ROCEphine 1G INJ) 1 gm Q24H IVPB 11/28/24 09:30 12/08/24 09:29 12/05/24 09:37 1 GM Chlordiazepoxide HCl (LIBrium 25 MG CAP) 25 mg Q2H PRN PO ALCOHOL WITHDRAWAL PROTOCOL 11/29/24 09:00 12/06/24 08:59 12/03/24 06:16 25 MG Chlordiazepoxide HCl (LIBrium 25 MG CAP) 50 mg Q1H PRN PO ALCOHOL WITHDRAWAL PROTOCOL 11/29/24 09:00 12/06/24 08:59 Famotidine (Pepcid 20mg Vial) 20 mg BID IV 11/28/24 21:00 11/28/24 09:59 DC Folic Acid (FOLic ACID 1 MG TABLET) 1 mg DAILY PO 11/29/24 09:00 12/29/24 08:59 12/05/24 09:38 1 MG Magnesium Sulfate 50 ml @ 0 mls/hr PROTOCOL IV 11/29/24 11:00 11/29/24 10:44 DC Magnesium Sulfate 50 ml @ 0 mls/hr PROTOCOL IV 12/02/24 09:30 12/05/24 09:01 DC 12/02/24 17:59 25 MLS/HR Magnesium Sulfate 50 ml @ 0 mls/hr PROTOCOL IV 12/05/24 09:00 01/04/25 08:59 Magnesium Sulfate 50 ml @ 0 mls/hr PROTOCOL PRN IV hypomagnesium 11/28/24 09:30 12/02/24 09:14 DC 12/02/24 04:24 25 MLS/HR Midodrine (PROAMatine 5 MG TABLET) 5 mg TID PO 12/03/24 14:00 01/02/25 13:59 12/05/24 09:38 5 MG Ondansetron HCl (zoFRAN 4MG INJ) 4 mg Q6H PRN IVP NAUSEA/VOMITING 11/28/24 18:00 12/28/24 17:59 Pantoprazole Sodium (PROTonix 40MG INJ) 40 mg BID IVP 11/28/24 10:00 12/28/24 09:59 12/05/24 09:37 40 MG Pharmacy Profile Note (Pharmacy Communication) 1 each PROTOCOL PRN MISC ETOH Withdrawal Score changes 11/29/24 09:00 12/06/24 08:59 Potassium Chloride 100 ml @ 100 mls/hr AD PRN IV POTASSIUM PROTOCOL 11/28/24 10:30 12/28/24 10:29 12/01/24 06:28 100 MLS/HR Potassium Chloride (K-Dur/Klor-Con 20meq) 20 meq AD PRN PO POTASSIUM PROTOCOL 11/28/24 10:30 12/28/24 10:29 12/02/24 19:59 20 MEQ Potassium Chloride (KCl 10% Elixir 20meq/15ml) 20 meq AD PRN PO POTASSIUM PROTOCOL 11/28/24 10:30 12/28/24 10:29 11/29/24 07:53 20 MEQ Sodium Chloride 1,000 ml @ 125 mls/hr Q8H IV 11/28/24 11:30 11/28/24 11:56 DC 11/28/24 11:37 125 MLS/HR Sodium Chloride (Sodium Chloride) 1,000 mg Q6H PO 11/28/24 14:00 12/28/24 13:59 12/05/24 09:52 1,000 MG Spironolactone (Aldactone 25mg) 25 mg DAILY PO 12/04/24 09:00 01/03/25 08:59 12/05/24 09:38 25 MG Thiamine HCl (Vitamin B-1) 100 mg DAILY IVP 11/29/24 09:00 11/28/24 14:03 DC Thiamine HCl (Vitamin B-1) 300 mg DAILY IVP 12/01/24 09:00 12/29/24 14:29 12/05/24 09:37 300 MG Thiamine HCl (Vitamin B-1) 300 mg Q8H IVP 11/28/24 14:30 11/30/24 09:05 DC 11/30/24 06:25 300 MG DIAGNOSTICS / RADIOLOGY: [ ] ASSESSMENT: Severe hyponatremia Suspected decompensated liver cirrhosis POA Alcohol use Fluid overload likely in setting of liver cirrhosis Ascites Anemia Intermittent hematochezia Hypertension Hypomagnesemia PLAN: patient is seen and examined at bedside, case discussed with the RN, no acute events overnight, alert oriented x3, hemodynamically stable, no chest pain, shortness shortness for breath, no nausea, no vomiting. Repeat abdominal ultrasound, showing reaccumulation of ascitic fluid, requested ultrasound-guided paracentesis to be done by IR tomorrow. computer project manager consulted for discharge plan to long term facility versus rehab. NEURO: Minimize central acting medications as possible. Fall Precautions. Well lighted room through the day and minimize interruptions through the night to prevent acute delirium. PULMONARY: Supplemental 02 as needed BiPAP as necessary, for respiratory distress Titrate Fio2 to keep Spo2 > or = 90% DuoNebs and CPT as needed IS hourly while awake for pulmonary hygiene prn Out of bed to chair as tolerated Maintain aspiration precautions at all times CARDIOVASCULAR: Follow hemodynamics. Vital signs per facility protocol GI & NUTRITION: Continue nutritional support Aspirations precautions Prokinetic agents and laxatives as needed KIDNEYS & ELECTROLYTES: Strict monitoring of intake and output Daily weights Avoid nephrotoxic agents Monitor electrolytes and replace as needed Goal urine output of 30mL/hr or 0.5mL/kg/hr Medications to be dosed according to renal function. Avoid contrast if possible ENDOCRINE: Maintain blood glucose between 100-180 at all times. Insulin sliding scale for blood glucose management Hypoglycemia and hyperglycemia protocol in place INFECTIOUS DISEASE: Trend temperature, WBC and procalcitonin level Follow cultures, deescalate antibiotics as soon as possible. Panculture if new onset fever HEMATOLOGY & COAGULATION: Monitor H&H. Keep Hgb > 7 Transfuse 1 unit of PRBC for Hgb < 7 Transfuse 1 pack of platelets of platelets < 20, 000 Watch for any signs and symptoms of bleeding SKIN: Pressure ulcer prevention per facility protocol Specialty mattress as needed ORTHO/REHAB Continue PT/OT PRN: MEDICATIONS Tylenol 650 mg po every 4 hrs for fever zofran 4 mg IV every 6 hrs for n/v Hydralazine 5 mg IV every 4 hrs systolic pressure > 160 bowel regiment: lactulose 20 gm PO BID PRN constipation Supportive measures: Continue GI and DVT prophylaxis All questions answered time spent: > 35 min NELDA GRJIALVA MD Dec 05, 2024 10:11
[2024-12-05 12:16] VITALS: BP_SYST 110; BP_SYST 114; BP_DIAS 72; PULSE 85; PULSE 89; RESP 18; TEMP 98
[2024-12-05 15:55] VITALS: BP 117/81; PULSE 100; RESP 18; TEMP 98.2
[2024-12-05 20:00] VITALS: BP 137/87; PULSE 81; RESP 17; TEMP 98.2; O2SAT 96
[2024-12-06] VITALS (7 sets, daily range): BP systolic 105–135; BP diastolic 58–96; PULSE 83–101; RESP 17–18; TEMP 97.6–99.2; O2SAT 97–98
[2024-12-06 04:38] LABS: NUCLEATED RED BLOOD CELLS 0.0 % (0.0-0.19); PLATELET COUNT (AUTO) 154 K/uL (130-400); RED BLOOD CELL COUNT(AUTO) 2.39 MIL/uL (4.50-6.20); RED CELL DISTRIBUTION WIDTH 16.2 % (11.0-15.5); WHITE BLOOD COUNT (AUTO) 11.2 K/uL (4.8-10.8)
[2024-12-06 05:03] LABS: ASPARTATE AMINOTRANSFERASE 84.0 U/L (10-37); CREATININE 0.6 mg/dL (0.5-1.3); GLOMERULAR FILTR. RATE CALC 116.0 mL/min (>90); GLUCOSE,RANDOM 87.0 mg/dL (70-105); SODIUM SERUM 129.0 mmol/L (136-145); TOTAL PROTEIN, SERUM 5.8 g/dL (6.0-8.3); UREA NITROGEN, BLOOD 6.0 mg/dL (7-18)
[2024-12-06] MEDS: MAGNESIUM 2GM PREMIX 50ML 50 ML IV SCH (06:48)
[2024-12-06] MEDS ORDERED: MAGNESIUM 2GM PREMIX 50ML 50 ML IV SCH (11:00)
--- NOTE | 2024-12-06 11:35 | PN ---
[facility] PROGRESS NOTE Date of Service: Dec 06, 2024 Time of Service: 11:34 SUBJECTIVE: 11/29 patient is seen and examined at bedside, case discussed with the RN, no acute events overnight, the patient is alert oriented x3, however feels mildly dizzy, weak, noted to have mild tremor, BP 102/65, heart rate of 93, afebrile, saturating normal on room air, CBC with a hemoglobin 8.2, hematocrit 22.1, WBC 10.1, with a platelet count of 134, sodium 116, potassium 3.7, BUN of five, creatinine 0.6, calcium 7.2. Iron level of 41, magnesium 1.4. We will start the patient on CIWA protocol, patient is started on sodium chloride tablet 1 g p.o. q.6 hours per Nephrology, continue to follow input and recommendation. Follow critical care input and recommendation. Continue Protonix 40 mg IV b.i.d.. Follow stool occult blood, if positive we will request GI consultation. We will start the patient on Venofer. We will give 2 g of magnesium sulfate IV x1, follow a.m. labs. Follow amylase and lipase levels, follow troponin, patie nt complaining of midepigastric discomfort. 11/30 patient is seen and examined at bedside, case discussed with the RN, patient was getting mildly agitated, received a dose of Librium, the time of my visit he is comfortably in bed. EGD done, findings of mild gastritis. Plan for colonoscopy tomorrow. Blood pressure 119/77, heart rate of 116, he is saturating normal on room air, leukocytosis resolved, WBC 10.8, sodium level stable at 118, BUN and creatinine within normal range. Continue to follow critical care input and recommendation, follow GI input and recommendation, continue to replace IV per protocol, continue with CIWA protocol. 12/01 patient is seen and examined at bedside, case discussed with the RN, no acute events overnight, patient currently NPO, scheduled for colonoscopy today, BP 111/73, afebrile, he is saturating normal on room air, he is alert oriented x3, denies chest pain, no shortness a breath, no nausea, no vomiting, no signs of alcohol withdrawal. Sodium level today 122. 12/02 patient is seen and examined at bedside, case discussed with the RN, no acute events overnight, hemodynamically stable, afebrile, he is saturating normal on room air, he is alert oriented x3, denies chest pain, no shortness a breath, no nausea, no vomiting, no signs of alcohol withdrawal. Sodium level today 123. Continue the patient on sodium chloride tablets 1 g p.o. q.6 hours, continue to follow Nephrology input and recommendation. Patient underwent colonoscopy 12/01/2024, tolerated the procedure well. We will request PT to evaluate the patient. 12/03 patient is seen and examined at bedside, comfortably in bed, alert oriented x3. Status post EGD during this admission found to have moderate portal hypertensive gastropathy, antral gastritis, no esophageal varices noted. Patient also status post colonoscopy during this admission, down to have a rectal polyp, status post removal. Repeat abdominal ultrasound 12/02/24 again showing large volume ascites, IR consultation requested for repeat paracentesis. Start the patient on furosemide 10 mg p.o. daily and Aldactone 25 mg p.o. daily, close monitoring of the patient's blood pressure and electrolytes with replacements IV per protocol. The patient looks and feels very weak, he is requesting placement. Physical therapy to evaluate the patient. Case management consultation requested, we will follow. 12/04 patient is seen and examined at bedside, case discussed with the RN, no acute events overnight, alert oriented x3, hemodynamically stable, no chest pain, shortness shortness for breath, no nausea, no vomiting. Repeat abdominal ultrasound, showing reaccumulation of ascitic fluid, we will have IR repeat the. evaluation manager consulted for discharge plan to prison facility versus rehab. Patient alert oriented x3 watching TV at the time of my visit. 12/05 patient is seen and examined at bedside, case discussed with the RN, no acute events overnight, alert oriented x3, hemodynamically stable, no chest pain, shortness shortness for breath, no nausea, no vomiting. Repeat abdominal ultrasound, showing reaccumulation of ascitic fluid, requested ultrasound-guided paracentesis to be done by IR tomorrow. evaluation manager consulted for discharge plan to prison facility versus rehab. 12/06 patient is seen and examined, remains alert oriented x3, discussed with the RN, patient is scheduled for therapeutic paracentesis today. Case management consulted for discharge plan to prison facility per patient's request. REVIEW OF SYSTEMS CONSTITUTIONAL: Denies fevers, chills, or night sweats. No unintentional weight loss reported. Positive for generalized body weakness NEUROLOGICAL: Denies headache, amaurosis fugax, motor weakness, sensory deficit, vertigo/spinning sensation, gait abnormalities, or tremors. ENT: No hearing loss, otalgia, otorrhea, rhinitis, rhinorrhea, hoarseness, or sore throat. CARDIOVASCULAR: Denies any exertional angina, dyspnea on exertion, orthopnea, paroxysmal nocturnal dyspnea, palpitations, life-threatening arrhythmias, claudication. PULMONARY: Denies any shortness of breath, cough, phlegm/sputum, hemoptysis, pleuritic chest pain. GASTROINTESTINAL: Positive for nausea, vomiting, hematochezia, abdominal distention. Denied any melena, constipation, diarrhea GENITOURINARY: Denies frequency, urgency, nocturia, hematuria or incontinence (Storage/Irritative symptoms.) Low urinary stream, straining to void, urinary intermittency or hesitancy, splitting of the voiding stream, terminal dribbling. ENDOCRINOLOGIC: Denies polyuria, polydipsia, polyphagia or heat/cold intolerances. HEMATOLOGIC: Denies thrombophilia/previous clots, or coagulopathy/bleeding disorders. ONCOLOGIC: Denies personal history of malignancy. DERMATOLOGIC: Denies rashes or pruritus. PSYCHIATRIC: Denies any suicidal or homicidal ideation. Denies hallucinations. PHYSICAL EXAM GENERAL APPEARANCE: The patient is awake, alert, and oriented, in no acute cardiopulmonary distress. NEUROLOGICAL: Cranial nerves II-XII grossly intact. Motor is 5/5 in bilateral upper and lower extremities proximal to distal. No sensory deficits. HEENT: Face is symmetric. Pupils are equal and reactive. Extraocular movements are intact. NECK: Supple. No JVD. No thyromegaly. No submental, submandibular, pre- /postauricular, occipital or supraclavicular lymphadenopathy. CHEST: Normal chest expansion. No Telemetry. LUNGS: Absence of any rales, rhonchi or any wheezing. CARDIOVASCULAR: Regular. S1 and S2 normal. No appreciable rubs, murmurs or gallops. ABDOMEN: Soft, patient has abdominal distention noted. There is no guarding, no rigidity noted : Deferred. No Espinosa. EXTREMITIES: 2+ pitting edema in the lower extremity bilaterally and not cyanotic. No clubbing. Good capillary refill. SKIN: No skin breakdown. Vital Signs (last 8hr) Date Time Temp Pulse Resp B/P (MAP) Pulse Ox O2 Delivery O2 Flow Rate FiO2 12/06/24 07:57 97.9 89 18 110/72 97 Room Air 21 12/06/24 07:52 110/72 12/06/24 04:00 97.7 83 17 105/76 97 Room Air 21 LABS: Laboratory: Test 12/06/24 03:49 Range/Units White Blood Count 11.2 H 4.8-10.8 K/uL Red Blood Count 2.39 L 4.50-6.20 MIL/uL Hemoglobin 8.5 L 14.0-18.0 g/dL Hematocrit 25.4 L 42-54 % Mean Corpuscular Volume 106.3 H 79-99 fL Mean Corpuscular Hemoglobin 35.6 H 27.0-33.0 pg Mean Corpuscular Hemoglobin Concent 33.5 32.0-36.0 g/dL Red Cell Distribution Width 16.2 H 11.0-15.5 % Platelet Count 154 130-400 K/uL Mean Platelet Volume 8.8 7.5-10.5 fL Nucleated Red Blood Cells 0.0 0.0-0.19 % Red Blood Cell Morphology See comments Sodium Level 129 L 136-145 mmol/L Potassium Level 4.7 3.5-5.1 mmol/L Chloride Level 98 L 101-111 mmol/L Carbon Dioxide Level 25 21-32 mmol/L Blood Urea Nitrogen 6 L 7-18 mg/dL Creatinine 0.6 0.5-1.3 mg/dL Glomerular Filtration Rate Calc 116 >90 mL/min Random Glucose 87 70-105 mg/dL Total Calcium 7.4 L 8.5-10.1 mg/dL Magnesium Level 1.50 L 1.80-2.40 mg/dL Total Bilirubin 1.6 H 0.2-1.0 mg/dL Aspartate Amino Transf (AST/SGOT) 84 H 10-37 U/L Alanine Aminotransferase (ALT/SGPT) 33 12-78 U/L Alkaline Phosphatase 174 H 50-136 U/L Total Protein 5.8 L 6.0-8.3 g/dL Albumin 1.6 L 3.5-5.0 g/dL Current Medications Medications (Trade) Dose Ordered Sig/Ronak Route PRN Reason Start Time Stop Time Status Last Admin Dose Admin Acetaminophen (TYLenol 500MG TAB) 500 mg Q6H PRN PO MILD PAIN (1-3) 11/28/24 09:30 12/28/24 09:29 12/05/24 04:54 500 MG Acetaminophen/ Hydrocodone Bitart (NORco 5/325MG) 1 tab Q6H PRN PO MODERATE PAIN (4-6) 12/04/24 20:30 12/09/24 20:29 12/06/24 07:59 1 TAB Carvedilol (Coreg 3.125MG) 3.125 mg BID PO 12/05/24 09:00 01/04/25 08:59 12/06/24 07:52 3.125 MG Ceftriaxone Sodium (ROCEphine 1G INJ) 1 gm Q24H IVPB 11/28/24 09:30 12/08/24 09:29 12/06/24 07:55 1 GM Chlordiazepoxide HCl (LIBrium 25 MG CAP) 25 mg Q2H PRN PO ALCOHOL WITHDRAWAL PROTOCOL 11/29/24 09:00 12/06/24 08:59 DC 12/03/24 06:16 25 MG Chlordiazepoxide HCl (LIBrium 25 MG CAP) 50 mg Q1H PRN PO ALCOHOL WITHDRAWAL PROTOCOL 11/29/24 09:00 12/06/24 08:59 DC Famotidine (Pepcid 20mg Vial) 20 mg BID IV 11/28/24 21:00 11/28/24 09:59 DC Folic Acid (FOLic ACID 1 MG TABLET) 1 mg DAILY PO 11/29/24 09:00 12/29/24 08:59 12/06/24 07:52 1 MG Magnesium Sulfate 50 ml @ 0 mls/hr PROTOCOL IV 11/29/24 11:00 11/29/24 10:44 DC Magnesium Sulfate 50 ml @ 0 mls/hr PROTOCOL IV 12/02/24 09:30 12/05/24 09:01 DC 12/02/24 17:59 25 MLS/HR Magnesium Sulfate 50 ml @ 0 mls/hr PROTOCOL IV 12/05/24 09:00 01/04/25 08:59 12/06/24 06:48 25 MLS/HR Magnesium Sulfate 50 ml @ 0 mls/hr PROTOCOL IV 12/06/24 11:00 12/06/24 10:48 DC Magnesium Sulfate 50 ml @ 0 mls/hr PROTOCOL PRN IV hypomagnesium 11/28/24 09:30 12/02/24 09:14 DC 12/02/24 04:24 25 MLS/HR Midodrine (PROAMatine 5 MG TABLET) 5 mg TID PO 12/03/24 14:00 01/02/25 13:59 12/06/24 07:51 5 MG Ondansetron HCl (zoFRAN 4MG INJ) 4 mg Q6H PRN IVP NAUSEA/VOMITING 11/28/24 18:00 12/28/24 17:59 Pantoprazole Sodium (PROTonix 40MG INJ) 40 mg BID IVP 11/28/24 10:00 12/28/24 09:59 12/06/24 07:52 40 MG Pharmacy Profile Note (Pharmacy Communication) 1 each PROTOCOL PRN MISC ETOH Withdrawal Score changes 11/29/24 09:00 12/06/24 08:59 DC Potassium Chloride 100 ml @ 100 mls/hr AD PRN IV POTASSIUM PROTOCOL 11/28/24 10:30 12/28/24 10:29 12/01/24 06:28 100 MLS/HR Potassium Chloride (K-Dur/Klor-Con 20meq) 20 meq AD PRN PO POTASSIUM PROTOCOL 11/28/24 10:30 12/28/24 10:29 12/02/24 19:59 20 MEQ Potassium Chloride (KCl 10% Elixir 20meq/15ml) 20 meq AD PRN PO POTASSIUM PROTOCOL 11/28/24 10:30 12/28/24 10:29 11/29/24 07:53 20 MEQ Sodium Chloride 1,000 ml @ 125 mls/hr Q8H IV 11/28/24 11:30 11/28/24 11:56 DC 11/28/24 11:37 125 MLS/HR Sodium Chloride (Sodium Chloride) 1,000 mg Q6H PO 11/28/24 14:00 12/28/24 13:59 12/06/24 07:52 1,000 MG Spironolactone (Aldactone 25mg) 25 mg DAILY PO 12/04/24 09:00 01/03/25 08:59 12/06/24 07:52 25 MG Thiamine HCl (Vitamin B-1) 100 mg DAILY IVP 11/29/24 09:00 11/28/24 14:03 DC Thiamine HCl (Vitamin B-1) 300 mg DAILY IVP 12/01/24 09:00 12/29/24 14:29 12/06/24 07:54 300 MG Thiamine HCl (Vitamin B-1) 300 mg Q8H IVP 11/28/24 14:30 11/30/24 09:05 DC 11/30/24 06:25 300 MG DIAGNOSTICS / RADIOLOGY: [ ] ASSESSMENT: Severe hyponatremia Suspected decompensated liver cirrhosis POA Alcohol use Fluid overload likely in setting of liver cirrhosis Ascites Anemia Intermittent hematochezia Hypertension Hypomagnesemia PLAN: patient is seen and examined, remains alert oriented x3, discussed with the RN, patient is scheduled for therapeutic paracentesis today. Case management consulted for discharge plan to prison facility per patient's request. NEURO: Minimize central acting medications as possible. Fall Precautions. Well lighted room through the day and minimize interruptions through the night to prevent acute delirium. PULMONARY: Supplemental 02 as needed BiPAP as necessary, for respiratory distress Titrate Fio2 to keep Spo2 > or = 90% DuoNebs and CPT as needed IS hourly while awake for pulmonary hygiene prn Out of bed to chair as tolerated Maintain aspiration precautions at all times CARDIOVASCULAR: Follow hemodynamics. Vital signs per facility protocol GI & NUTRITION: Continue nutritional support Aspirations precautions Prokinetic agents and laxatives as needed KIDNEYS & ELECTROLYTES: Strict monitoring of intake and output Daily weights Avoid nephrotoxic agents Monitor electrolytes and replace as needed Goal urine output of 30mL/hr or 0.5mL/kg/hr Medications to be dosed according to renal function. Avoid contrast if possible ENDOCRINE: Maintain blood glucose between 100-180 at all times. Insulin sliding scale for blood glucose management Hypoglycemia and hyperglycemia protocol in place INFECTIOUS DISEASE: Trend temperature, WBC and procalcitonin level Follow cultures, deescalate antibiotics as soon as possible. Panculture if new onset fever HEMATOLOGY & COAGULATION: Monitor H&H. Keep Hgb > 7 Transfuse 1 unit of PRBC for Hgb < 7 Transfuse 1 pack of platelets of platelets < 20, 000 Watch for any signs and symptoms of bleeding SKIN: Pressure ulcer prevention per facility protocol Specialty mattress as needed ORTHO/REHAB Continue PT/OT PRN: MEDICATIONS Tylenol 650 mg po every 4 hrs for fever zofran 4 mg IV every 6 hrs for n/v Hydralazine 5 mg IV every 4 hrs systolic pressure > 160 bowel regiment: lactulose 20 gm PO BID PRN constipation Supportive measures: Continue GI and DVT prophylaxis All questions answered time spent: > 35 min NELDA GRIJALVA MD Dec 06, 2024 11:35
--- NOTE | 2024-12-06 12:17 | NUR ---
SHAWN SEVILLA CM HAD SENT INFO TO RACHEL [facility]OPER [facility] AND ROBIN CALLED BACK NOT IN NETWORK. JAMES SENT REFERRAL TO [facility]. SPOKE TO GEOVANNA JOHNSON SAID THEY ARE IN NETWORK. EMAIL SENT. PATIENT PENDING PARA. Addendum: 12/06/24 at 1221 by KERRI BURGESS RN CM Amended: Links added.
--- NOTE | 2024-12-06 12:50 | NUR ---
ULTRASOUND GUIDED PARACENTESIS PROCEDURE PERFORMED BY DR. ALYCE MOLINA. PUNCTURE SITE RLQ AND PATIENT TOLERATED PROCEDURE WELL. TOTAL REMOVED 7.0 LITERS OF CLOUDY, YELLOW ASCITES FLUID. ALBUMIN 25% 50 GRAMS IV GIVEN DURING PROCEDURE. END OF PROCEDURE AT 1230. CATHETER REMOVED AND DRESSING APPLIED- NO BLEEDING NOTED. REPORT GIVEN TO FELIX CALDERA AND PATIENT TRANSPORTED TO ROOM 119 VIA BED. PATIENT IS ALERT AND ORIENTED AND STATES NO C/O PAIN. SPECIMEN SENT TO LAB.
--- NOTE | 2024-12-06 12:53 | PN ---
NEPHROLOGY PROGRESS NOTE Date/Time Patient Seen: Dec 06, 2024 SUBJECTIVE: This 54-year-old male with a history of cirrhosis, initially presented with renal dysfunction as well as significant hyponatremia. Serum sodium continues to slowly improve. The patient did have extensive GI workup, results of which are all noted and he is being seen as a followup visit for all of the above. The patient's serum sodium continues to slowly improve. The patient's GI workup is ongoing. Hemoglobin has remained fairly stable. The patient is encouraged with this therapy. Once the patient is discharged, he will need to continue with the fluid restriction, which will be the mainstay of therapy for the hyponatremia. Sodium level continues to improve Abdominal ultrasound showed large amount of ascites. S/P paracentesis with 7 L removed, he received albumin He was seen in the medical floor, in no acute distress REVIEW OF SYSTEMS: GENERAL: Negative for any nausea, vomiting, fevers, chills, or weight loss. NEUROLOGIC: Negative for any blurry vision, blind spots, double vision, facial asymmetry, dysphagia, dysarthria, hemiparesis, hemisensory deficits, vertigo, ataxia. HEENT: Negative for any head trauma, neck trauma, neck stiffness, photophobia, phonophobia, sinusitis, rhinitis. CARDIAC: Negative for any chest pain, dyspnea on exertion, paroxysmal nocturnal dyspnea, peripheral edema. PULMONARY: Negative for any shortness of breath, wheezing, COPD, or TB exposure. GASTROINTESTINAL: Negative for any abdominal pain, nausea, vomiting, bright red blood per rectum, melena. GENITOURINARY: Negative for any dysuria, hematuria, incontinence. INTEGUMENTARY: Negative for any rashes, cuts, insect bites. RHEUMATOLOGIC: Negative for any joint pains, photosensitive rashes, history of vasculitis or kidney problems. HEMATOLOGIC: Negative for any abnormal bruising, frequent infections or bleeding. Vital Signs (last 8hr) Date Time Temp Pulse Resp B/P (MAP) Pulse Ox O2 Delivery O2 Flow Rate FiO2 12/05/24 08:09 98.1 114 18 143/92 99 Room Air 12/05/24 03:37 98.6 106 20 134/92 100 Room Air PHYSICAL EXAM: GENERAL: Alert and oriented x 3. No acute distress. Well-nourished. EYES: EOMI. Anicteric. HENT: Moist mucous membranes. No scleral icterus. No cervical lymphadenopathy. LUNGS: Clear to auscultation bilaterally. No accessory muscle use. CARDIOVASCULAR: Regular rate and rhythm. No murmur. No JVD. ABDOMEN: Soft, non-tender and non-distended. No palpable masses. EXTREMITIES: No edema. Non-tender. SKIN: No rashes or lesions. Warm. NEUROLOGIC: No focal neurological deficits. CN II-XII grossly intact, but not individually tested. PSYCHIATRIC: Cooperative. Appropriate mood and affect. Current Medications Medications (Trade) Dose Ordered Sig/Ronak Route PRN Reason Start Time Stop Time Status Last Admin Dose Admin Acetaminophen (TYLenol 500MG TAB) 500 mg Q6H PRN PO MILD PAIN (1-3) 11/28/24 09:30 12/28/24 09:29 12/03/24 23:19 500 MG Ceftriaxone Sodium (ROCEphine 1G INJ) 1 gm Q24H IVPB 11/28/24 09:30 12/08/24 09:29 12/04/24 09:37 1 GM Chlordiazepoxide HCl (LIBrium 25 MG CAP) 25 mg Q2H PRN PO ALCOHOL WITHDRAWAL PROTOCOL 11/29/24 09:00 12/06/24 08:59 12/03/24 06:16 25 MG Chlordiazepoxide HCl (LIBrium 25 MG CAP) 50 mg Q1H PRN PO ALCOHOL WITHDRAWAL PROTOCOL 11/29/24 09:00 12/06/24 08:59 Famotidine (Pepcid 20mg Vial) 20 mg BID IV 11/28/24 21:00 11/28/24 09:59 DC Folic Acid (FOLic ACID 1 MG TABLET) 1 mg DAILY PO 11/29/24 09:00 12/29/24 08:59 12/04/24 09:37 1 MG Magnesium Sulfate 50 ml @ 0 mls/hr PROTOCOL IV 11/29/24 11:00 11/29/24 10:44 DC Magnesium Sulfate 50 ml @ 0 mls/hr PROTOCOL IV 12/02/24 09:30 01/01/25 09:29 12/02/24 17:59 25 MLS/HR Magnesium Sulfate 50 ml @ 0 mls/hr PROTOCOL PRN IV hypomagnesium 11/28/24 09:30 12/02/24 09:14 DC 12/02/24 04:24 25 MLS/HR Midodrine (PROAMatine 5 MG TABLET) 5 mg TID PO 12/03/24 14:00 01/02/25 13:59 12/04/24 09:37 5 MG Ondansetron HCl (zoFRAN 4MG INJ) 4 mg Q6H PRN IVP NAUSEA/VOMITING 11/28/24 18:00 12/28/24 17:59 Pantoprazole Sodium (PROTonix 40MG INJ) 40 mg BID IVP 11/28/24 10:00 12/28/24 09:59 12/04/24 09:38 40 MG Pharmacy Profile Note (Pharmacy Communication) 1 each PROTOCOL PRN MISC ETOH Withdrawal Score changes 11/29/24 09:00 12/06/24 08:59 Potassium Chloride 100 ml @ 100 mls/hr AD PRN IV POTASSIUM PROTOCOL 11/28/24 10:30 12/28/24 10:29 12/01/24 06:28 100 MLS/HR Potassium Chloride (K-Dur/Klor-Con 20meq) 20 meq AD PRN PO POTASSIUM PROTOCOL 11/28/24 10:30 12/28/24 10:29 12/02/24 19:59 20 MEQ Potassium Chloride (KCl 10% Elixir 20meq/15ml) 20 meq AD PRN PO POTASSIUM PROTOCOL 11/28/24 10:30 12/28/24 10:29 11/29/24 07:53 20 MEQ Sodium Chloride 1,000 ml @ 125 mls/hr Q8H IV 11/28/24 11:30 11/28/24 11:56 DC 11/28/24 11:37 125 MLS/HR Sodium Chloride (Sodium Chloride) 1,000 mg Q6H PO 11/28/24 14:00 12/28/24 13:59 12/04/24 09:37 1,000 MG Spironolactone (Aldactone 25mg) 25 mg DAILY PO 12/04/24 09:00 01/03/25 08:59 12/04/24 09:37 25 MG Thiamine HCl (Vitamin B-1) 100 mg DAILY IVP 11/29/24 09:00 11/28/24 14:03 DC Thiamine HCl (Vitamin B-1) 300 mg DAILY IVP 12/01/24 09:00 12/29/24 14:29 12/04/24 09:37 300 MG Thiamine HCl (Vitamin B-1) 300 mg Q8H IVP 11/28/24 14:30 11/30/24 09:05 DC 11/30/24 06:25 300 MG LABORATORY: [ ] Hematology Labs: Test 12/06/24 03:49 Range/Units White Blood Count 11.2 H 4.8-10.8 K/uL Red Blood Count 2.39 L 4.50-6.20 MIL/uL Hemoglobin 8.5 L 14.0-18.0 g/dL Hematocrit 25.4 L 42-54 % Mean Corpuscular Volume 106.3 H 79-99 fL Mean Corpuscular Hemoglobin 35.6 H 27.0-33.0 pg Mean Corpuscular Hemoglobin Concent 33.5 32.0-36.0 g/dL Red Cell Distribution Width 16.2 H 11.0-15.5 % Platelet Count 154 130-400 K/uL Mean Platelet Volume 8.8 7.5-10.5 fL Nucleated Red Blood Cells 0.0 0.0-0.19 % Red Blood Cell Morphology See comments Chemistry Labs: Test 12/06/24 03:49 Range/Units Sodium Level 129 L 136-145 mmol/L Potassium Level 4.7 3.5-5.1 mmol/L Chloride Level 98 L 101-111 mmol/L Carbon Dioxide Level 25 21-32 mmol/L Blood Urea Nitrogen 6 L 7-18 mg/dL Creatinine 0.6 0.5-1.3 mg/dL Glomerular Filtration Rate Calc 116 >90 mL/min Random Glucose 87 70-105 mg/dL Total Calcium 7.4 L 8.5-10.1 mg/dL Magnesium Level 1.50 L 1.80-2.40 mg/dL Total Bilirubin 1.6 H 0.2-1.0 mg/dL Aspartate Amino Transf (AST/SGOT) 84 H 10-37 U/L Alanine Aminotransferase (ALT/SGPT) 33 12-78 U/L Alkaline Phosphatase 174 H 50-136 U/L Total Protein 5.8 L 6.0-8.3 g/dL Albumin 1.6 L 3.5-5.0 g/dL DIAGNOSTICS / RADIOLOGY: [place] [id number] [address] IMAGING REPORT Signed PATIENT: CHAN GARDINER MR#: [id number] : 1970 SEX: M AGE: 54 LOCATION: 1MS ORDER [id number] STATUS: ADM IN REPORT#: [id number] SERVICE 0800 REASON: Large volume ascites ORDERING PHYSICIAN: NELDA GRIJALVA MD PROCEDURE: PARA ABD - US ABDOMINAL PARACENTESIS IR US ABDOMINAL PARACENTESIS IR REASON: Large volume ascites TECHNIQUE: This procedure was performed by Dr. Johanny Centeno and Dr. Alyce Molina Paracentesis was performed with ultrasound guidance. The puncture site was selected in the Right upper quadrant and overlying skin prepped and draped in a sterile fashion. 1% Xylocaine infiltration was performed. Catheter was placed in the fluid using trocar technique. 7L were removed. Fluid sample was submitted for laboratory evaluation. The patient showed no evidence of complication during the procedure. Patient tolerated the procedure well. IMPRESSION: 1. Ultrasound-guided paracentesis. 2. 7 L were removed DICTATED BY: ALYCE MOLINA MD DATE: 12/06/24 1456 ELECTRONICALLY SIGNED BY: ALYCE MOLINA MD DATE: 12/06/24 1505 PATIENT: CHAN GARDINER MR#: [id number] : 1970 SEX: M AGE: 54 LOCATION: 4DH ORDER 1240 STATUS: ADM IN REPORT#: [id number] SERVICE 1239 REASON: ASCITES ORDERING PHYSICIAN: NELDA GRIJALVA MD PROCEDURE: ABD WALL - US ABD LIMITED/ABD WALL Abdominal ultrasound (limited, modified protocol). CLINICAL INDICATION: Ascites FINDINGS: Limited abdominal ultrasound was performed in order to detect ascites fluid. A low frequency probe was used to obtain survey images of all 4 quadrants of the abdomen. There are demonstrated ascites seen in all 4 quadrant the largest is seen in the right upper quadrant measuring 11.8 cm.. IMPRESSION: Large amount of ascites seen throughout the abdomen is amenable for paracentesis. DICTATED BY: ALYCE MOLINA MD DATE: 12/02/24 1426 ELECTRONICALLY SIGNED BY: ALYCE MOLINA MD DATE: 12/02/24 1430 PATIENT: CHAN GARDINER MR#: [id number] : 1970 SEX: M AGE: 54 LOCATION: 2CH ORDER 3 STATUS: ADM IN REPORT#: [id number] SERVICE REASON: assess for cirrhosis ORDERING PHYSICIAN: MANOLO TENORIO MD PROCEDURE: ABDRUQLTD - US ABDOMINAL RUQ\LTD EXAMINATION: ULTRASOUND OF THE ABDOMEN (LIMITED) WITH COLOR DOPPLER. CLINICAL HISTORY: Assess for cirrhosis. COMPARISON: CT abdomen and pelvis without contrast from the same day. TECHNIQUE: Real-time grayscale ultrasound images of the abdomen. In addition, color Doppler is medically necessary to perform in order to evaluate vascularity and blood flow. FINDINGS: Liver: Bulky in caliber, the right hepatic lobe measures 16.4 cm in the craniocaudal dimension. There is increased echogenicity of the hepatic parenchyma. There is no focal hepatic abnormality or intrahepatic biliary ductal dilatation. There is normal spectral Doppler of the main portal vein (PSV is 10 cm/s). Gallbladder: Within normal limits with normal wall thickness (0.3 cm). No hyperemia or pericholecystic free fluid. There is no cholelithiasis. There is sludge. Common bile duct is normal in caliber, measuring 0.4 cm. Pancreas: Head appears normal in caliber and echotexture. No calcification or dilated pancreatic duct. Body and tail is obscured by overlying bowel gas. The right kidney is normal in caliber, the right kidney measures 10.3 x 5.4 x 3.5 cm in craniocaudal, AP, and transverse dimensions respectively. There is normal renal cortical thickness, and cortical echogenicity. There is no renal calculus or hydronephrosis. There is moderate free fluid in the peritoneal cavity. IMPRESSION: Hepatomegaly with hepatic steatosis. Gallbladder sludge. Moderate ascites. No significant interval changes. /[place] DICTATED BY: MARIANN HOWARD Jr., MD DATE: 11/29/24130 ELECTRONICALLY SIGNED BY: MARIANN HOWARD Jr., MD DATE: 11/29/24130 PATIENT: CHAN GARDINER MR#: [id number] : 1970 SEX: M AGE: 54 LOCATION: [facility] ORDER 9 STATUS: ADM IN [place] REPORT#: [id number] SERVICE 4 REASON: assess for CHF ORDERING PHYSICIAN: MANOLO TENORIO MD PROCEDURE: ECHO CMP - ECHO 2-D COMPLETE APPROVED REPORT EXAM: Two-dimensional and M-mode echocardiogram with Doppler and color Doppler. Study Details: HTN INDICATION ICD: assess for chf 2D Dimensions RVDd 3.7 cm LVEF(%) 78.8 (>50%) LVED Vol(simp.) 119.0 mL IVSd 1.1 (0.7-1.1cm) FS(%) 48 % LVES Vol(simp.) 60.1 mL LVDd 4.8 (3.8-5.6cm) Ao Root(2D) 3.3 (2.0-3.7cm) LVEF(%, simp.) 49 % PWd 0.8 (0.7-1.1cm) LVOT diam 1.8 (1.8-2.4cm) LA ESV INDEX (BP) 25.55 mL/m2 IVSs 1.4 cm LVDs 2.5 (2.5-4.0cm) PWs 1.7 cm Deformation Strain Apical 4 19.9 % Apical 2 15.7 % Apical 3 19.1 % Global Strain 18.3 % M-Mode Dimensions EPSS 0.4 cm LA (MM) 4.3 (1.6-4.0cm) Ao Root(MM) 2.9 (2.0-3.7cm) Aortic Valve AoV Vmax 1.8 m/s Ao Peak GR 12.7 mmHg LVOT Vmax 1.4 m/s AoV VTI 0.3 m Ao Mean GR 6.9 mmHg LVOT VTI 0.26 m KIRA (VMAX) 2.01 cm2 KIRA (VTI) 2.0 cm2 Mitral Valve MV E Vmax 68.4 cm/s DECEL Time 203 ms MV A Vmax 76.0 cm/s P 1/2 T 59 ms E/A ratio 0.9 MVA (PHT) 3.7 cm2 TDI E/E' Medial 7.6 E/E' Lateral 7.6 Medial E' Peak V 8.97 cm/s Lateral E' Peak V 8.97 cm/s Pulmonary Valve PV Vmax 1.8 m/s PV VTI 0.33 m PV Mean GR 5.2 mmHg PV Peak GR 12.3 mmHg Left Ventricle The left ventricle is normal size. There is normal LV segmental wall motion. There is normal left ventricular wall thickness. LVEF is >55%. The left ventricular diastolic function is normal. Right Ventricle The right ventricle is normal size. The right ventricular systolic function is normal. Atria The left atrium size is normal. The interatrial septum is intact with no evidence for an atrial septal defect. The right atrium size is normal. Aortic Valve Aortic valve is trileaflet. The aortic valve is mildly thickened. No aortic regurgitation is present. There is minimal valvular aortic stenosis. Mitral Valve The mitral valve is normal in structure. There is no evidence of significant mitral regurgitation. There is no mitral valve stenosis. Tricuspid Valve The tricuspid valve is normal in structure. There is no tricuspid valve regurgitation noted. Pulmonic Valve The pulmonary valve is normal in structure. There is trace pulmonic valvular regurgitation. Great Vessels The aortic root is normal in size. The ascending aorta is normal in size. The IVC is normal in size and collapses >50% with inspiration. Pericardium There is no pericardial effusion. Ascites is present. Conclusion LVEF is >55%. Aortic valve is trileaflet. The aortic valve is mildly thickened. DICTATED BY: GORDON JACINTO MD DATE: 11/28/24 1234 ELECTRONICALLY SIGNED BY: GORDON JACINTO MD DATE: 11/28/242106 PATIENT: CHAN GARDINER MR#: [id number] : 1970 SEX: M AGE: 54 LOCATION: [facility] ORDER 9 STATUS: ADM IN REPORT#: [id number] SERVICE 0905 REASON: abdominal distention ORDERING PHYSICIAN: MANOLO TENORIO MD PROCEDURE: ABD PEL WO - CT ABDOMEN/PELVIS W/O CONTRAST EXAM: CT Abdomen and Pelvis Without IV contrast CLINICAL HISTORY: abdominal distention TECHNIQUE: Axial computed tomography images of the abdomen and pelvis without intravenous contrast. CONTRAST: No IV contrast. COMPARISON: None provided. FINDINGS: LUNG BASES: Minimal right pleural effusion. Dependent atelectatic changes in the left lower lobe. No pleural effusions are seen. LIVER: Diffuse fatty infiltration of the liver. GALLBLADDER AND BILE DUCTS: The gallbladder appears within normal limits. No radioopaque gallstones are seen. No biliary ductal dilatation is evident. PANCREAS: Unremarkable. SPLEEN: Tiny calcified granuloma in the spleen. ADRENAL GLANDS: Unremarkable. KIDNEYS, URETERS, AND BLADDER: The kidneys appear within normal limits. There is no hydronephrosis or hydroureter. No urinary calculi are seen. STOMACH AND BOWEL: Unremarkable appearance of the stomach and bowel. No evidence of bowel obstruction. No evidence suggesting enteritis or colitis. APPENDIX: No evidence of acute appendicitis on CT examination. PERITONEUM: Large ascites. Diffuse omental and mesenteric fat stranding. No free air. LYMPH NODES: No lymphadenopathy is evident. REPRODUCTIVE: Unremarkable as visualized. VASCULATURE: No evidence of abdominal aortic aneurysm. Atheromatous wall calcifications in the abdominal aorta and its branches. BONES AND SOFT TISSUE: No aggressive appearing osseous lesion. No acute osseous pathology is evident. Mild multilevel degenerative changes in the visualized spine. Diffuse edematous changes in the abdominal wall and scrotal wall. There are a few phleboliths in the pelvis. IMPRESSION: 1. Large ascites with omental and mesenteric fat stranding. 2. Diffuse edematous changes in the abdominal and scrotal wall. 3. Minimal right pleural effusion. /[place] DICTATED BY: MARIANN HOWARD Jr., MD DATE: 11/28/241148 ELECTRONICALLY SIGNED BY: MARIANN HOWARD Jr., MD DATE: 11/28/241148 PATIENT: CHAN GARDINER MR#: [id number] : 1970 SEX: M AGE: 54 LOCATION: [facility] ORDER 0734 STATUS: REG REPORT#: [id number] SERVICE 1 REASON: sob ORDERING PHYSICIAN: LEATHA GUERRA MD PROCEDURE: CXR1VW - CHEST 1VW EXAM: CR Chest, 1 View. CLINICAL HISTORY: sob COMPARISON: None provided. FINDINGS: LUNGS: There is no mass, infiltrate, or acute pulmonary abnormality. PLEURAL SPACES: No evidence of pleural effusion or pneumothorax. MEDIASTINUM: The cardiomediastinal silhouette is within normal limits. BONES: No aggressive appearing osseous lesion seen. IMPRESSION: No acute cardiopulmonary pathology is evident. /[place] DICTATED BY: MARIANN HOWARD Jr., MD DATE: 11/28/24942 ELECTRONICALLY SIGNED BY: MARIANN HOWARD Jr., MD DATE: 11/28/24942 ASSESSMENT: Severe hyponatremia Suspected decompensated liver cirrhosis POA Alcohol use Fluid overload likely in setting of liver cirrhosis Ascites Anemia Intermittent hematochezia Hypertension Hypomagnesemia PLAN: Labs, diagnostic, radiologic exams reviewed and interpreted by myself and supervising physician. We have reviewed external records in detail Continue with fluid restriction Require close monitoring of renal function and electrolytes Order CBC, CMP, and electrolytes in am BiPAP as necessary, for respiratory distress Monitor blood pressure adjust medication doses as needed Avoid hypotensive episodes May use Dilaudid 0.5 mg IV every 6 hours as needed for severe pain Monitor blood sugars Strict intake, output, and daily weight should be monitored Will continue to monitor renal function, anemia, electrolytes Treatment plan discussed with patient Questions were answered We have discussed with the other team physicians in detail about the care plan We will continue to monitor the patient closely ATTESTATION BY PHYSICIAN I have seen and examined the patient. I reviewed the documentation, medical decision making, and treatment plan as noted by the mid-level provider above. I agree with the findings and plan of care. HARJINDER CORTÉS MD, [facility] Dec 06, 2024 12:53
[2024-12-06] MEDS: ALBUMIN HUMAN 25% 200 ML IV ONE (14:27)
--- NOTE | 2024-12-06 15:05 | HMCIMG ---
US ABDOMINAL PARACENTESIS IR REASON: Large volume ascites TECHNIQUE: This procedure was performed by Dr. Johanny Centeno and Dr. Carla Yoder Paracentesis was performed with ultrasound guidance. The puncture site was selected in the Right upper quadrant and overlying skin prepped and draped in a sterile fashion. 1% Xylocaine infiltration was performed. Catheter was placed in the fluid using trocar technique. 7L were removed. Fluid sample was submitted for laboratory evaluation. The patient showed no evidence of complication during the procedure. Patient tolerated the procedure well. IMPRESSION: 1. Ultrasound-guided paracentesis. 2. 7 L were removed
[2024-12-06 17:52] LABS: APPEARANCE BODY FLUID CLEAR (CLEAR); COLOR,BODY FLUID LT YELLOW (LT YELLOW); SPECIMENTYPE,BODY FLUID ASCITES; TOTAL VOLUME,BODY FLUID 7000 mL
[2024-12-06 17:55] LABS: BODY FLUID RBC 71 /cu. mm.; BODY FLUID WBC 203 /cu. mm.
[2024-12-06 18:35] LABS: BF LYMPHOCYTE 34 %; BF MACROPHAGE 12; BF MESOTHELIAL 34 %; BF MONOCYTE 9 %; BF NEUTROPHIL 11.0 %; BF TOTAL CELLS COUNTED 100
[2024-12-07] VITALS (8 sets, daily range): BP systolic 103–129; BP diastolic 60–82; PULSE 82–105; RESP 16–20; TEMP 97.8–100.3; O2SAT 98–99
[2024-12-07 05:59] LABS: NUCLEATED RED BLOOD CELLS 0.0 % (0.0-0.19); PLATELET COUNT (AUTO) 139.0 K/uL (130-400); RED BLOOD CELL COUNT(AUTO) 2.34 MIL/uL (4.50-6.20); RED CELL DISTRIBUTION WIDTH 16.2 % (11.0-15.5); WHITE BLOOD COUNT (AUTO) 9.4 K/uL (4.8-10.8)
[2024-12-07 07:53] LABS: ASPARTATE AMINOTRANSFERASE 89.0 U/L (10-37); CREATININE 0.6 mg/dL (0.5-1.3); GLOMERULAR FILTR. RATE CALC 116.0 mL/min (>90); GLUCOSE,RANDOM 83.0 mg/dL (70-105); SODIUM SERUM 133.0 mmol/L (136-145); TOTAL PROTEIN, SERUM 5.4 g/dL (6.0-8.3); UREA NITROGEN, BLOOD 7.0 mg/dL (7-18)
[2024-12-07] MEDS ORDERED: MAGNESIUM 2GM PREMIX 50ML 50 ML IV SCH (09:00)
--- NOTE | 2024-12-07 09:12 | PN ---
[facility] PROGRESS NOTE Date of Service: Dec 07, 2024 Time of Service: 09:11 SUBJECTIVE: 11/29 patient is seen and examined at bedside, case discussed with the RN, no acute events overnight, the patient is alert oriented x3, however feels mildly dizzy, weak, noted to have mild tremor, BP 102/65, heart rate of 93, afebrile, saturating normal on room air, CBC with a hemoglobin 8.2, hematocrit 22.1, WBC 10.1, with a platelet count of 134, sodium 116, potassium 3.7, BUN of five, creatinine 0.6, calcium 7.2. Iron level of 41, magnesium 1.4. We will start the patient on CIWA protocol, patient is started on sodium chloride tablet 1 g p.o. q.6 hours per Nephrology, continue to follow input and recommendation. Follow critical care input and recommendation. Continue Protonix 40 mg IV b.i.d.. Follow stool occult blood, if positive we will request GI consultation. We will start the patient on Venofer. We will give 2 g of magnesium sulfate IV x1, follow a.m. labs. Follow amylase and lipase levels, follow troponin, patie nt complaining of midepigastric discomfort. 11/30 patient is seen and examined at bedside, case discussed with the RN, patient was getting mildly agitated, received a dose of Librium, the time of my visit he is comfortably in bed. EGD done, findings of mild gastritis. Plan for colonoscopy tomorrow. Blood pressure 119/77, heart rate of 116, he is saturating normal on room air, leukocytosis resolved, WBC 10.8, sodium level stable at 118, BUN and creatinine within normal range. Continue to follow critical care input and recommendation, follow GI input and recommendation, continue to replace IV per protocol, continue with CIWA protocol. 12/01 patient is seen and examined at bedside, case discussed with the RN, no acute events overnight, patient currently NPO, scheduled for colonoscopy today, BP 111/73, afebrile, he is saturating normal on room air, he is alert oriented x3, denies chest pain, no shortness a breath, no nausea, no vomiting, no signs of alcohol withdrawal. Sodium level today 122. 12/02 patient is seen and examined at bedside, case discussed with the RN, no acute events overnight, hemodynamically stable, afebrile, he is saturating normal on room air, he is alert oriented x3, denies chest pain, no shortness a breath, no nausea, no vomiting, no signs of alcohol withdrawal. Sodium level today 123. Continue the patient on sodium chloride tablets 1 g p.o. q.6 hours, continue to follow Nephrology input and recommendation. Patient underwent colonoscopy 12/01/2024, tolerated the procedure well. We will request PT to evaluate the patient. 12/03 patient is seen and examined at bedside, comfortably in bed, alert oriented x3. Status post EGD during this admission found to have moderate portal hypertensive gastropathy, antral gastritis, no esophageal varices noted. Patient also status post colonoscopy during this admission, down to have a rectal polyp, status post removal. Repeat abdominal ultrasound 12/02/24 again showing large volume ascites, IR consultation requested for repeat paracentesis. Start the patient on furosemide 10 mg p.o. daily and Aldactone 25 mg p.o. daily, close monitoring of the patient's blood pressure and electrolytes with replacements IV per protocol. The patient looks and feels very weak, he is requesting placement. Physical therapy to evaluate the patient. Case management consultation requested, we will follow. 12/04 patient is seen and examined at bedside, case discussed with the RN, no acute events overnight, alert oriented x3, hemodynamically stable, no chest pain, shortness shortness for breath, no nausea, no vomiting. Repeat abdominal ultrasound, showing reaccumulation of ascitic fluid, we will have IR repeat the. manager math consulted for [facility] versus [facility]hab. Patient alert oriented x3 watching TV at the time of my visit. 12/05 patient is seen and examined at bedside, case discussed with the RN, no acute events overnight, alert oriented x3, hemodynamically stable, no chest pain, shortness shortness for breath, no nausea, no vomiting. Repeat abdominal ultrasound, showing reaccumulation of ascitic fluid, requested ultrasound-guided paracentesis to be done by IR tomorrow. manager math consulted for discharge plan to [facility] versus rehab. 12/06 patient is seen and examined, remains alert oriented x3, discussed with the RN, patient is scheduled for therapeutic paracentesis today. Case management consulted for discharge plan to [facility] per patient's request. 12/07 patient is seen and examined at bedside, case discussed with the RN, no acute events overnight, comfortably in bed, tolerating diet, no nausea, no vomiting, no abdominal pain. The patient is alert oriented x3, hemodynamically stable, afebrile, saturating normal on room air. Leukocytosis resolved. Patient remains on IV antibiotics. Sodium level improving to 131. Case m anagement consulted for discharge plan to [facility] facility versus rehab. Paperwork done. We will follow up. REVIEW OF SYSTEMS CONSTITUTIONAL: Denies fevers, chills, or night sweats. No unintentional weight loss reported. Positive for generalized body weakness NEUROLOGICAL: Denies headache, amaurosis fugax, motor weakness, sensory deficit, vertigo/spinning sensation, gait abnormalities, or tremors. ENT: No hearing loss, otalgia, otorrhea, rhinitis, rhinorrhea, hoarseness, or sore throat. CARDIOVASCULAR: Denies any exertional angina, dyspnea on exertion, orthopnea, paroxysmal nocturnal dyspnea, palpitations, life-threatening arrhythmias, claudication. PULMONARY: Denies any shortness of breath, cough, phlegm/sputum, hemoptysis, p leuritic chest pain. GASTROINTESTINAL: Positive for nausea, vomiting, hematochezia, abdominal distention. Denied any melena, constipation, diarrhea GENITOURINARY: Denies frequency, urgency, nocturia, hematuria or incontinence (Storage/Irritative symptoms.) Low urinary stream, straining to void, urinary intermittency or hesitancy, splitting of the voiding stream, terminal dribbling. ENDOCRINOLOGIC: Denies polyuria, polydipsia, polyphagia or heat/cold intolerances. HEMATOLOGIC: Denies thrombophilia/previous clots, or coagulopathy/bleeding disorders. ONCOLOGIC: Denies personal history of malignancy. DERMATOLOGIC: Denies rashes or pruritus. PSYCHIATRIC: Denies any suicidal or homicidal ideation. Denies hallucinations. PHYSICAL EXAM GENERAL APPEARANCE: The patient is awake, alert, and oriented, in no acute cardiopulmonary distress. NEUROLOGICAL: Cranial nerves II-XII grossly intact. Motor is 5/5 in bilateral upper and lower extremities proximal to distal. No sensory deficits. HEENT: Face is symmetric. Pupils are equal and reactive. Extraocular movements are intact. NECK: Supple. No JVD. No thyromegaly. No submental, submandibular, pre-/postauricular, occipital or supraclavicular lymphadenopathy. CHEST: Normal chest expansion. No Telemetry. LUNGS: Absence of any rales, rhonchi or any wheezing. CARDIOVASCULAR: Regular. S1 and S2 normal. No appreciable rubs, murmurs or gallops. ABDOMEN: Soft, patient has abdominal distention noted. There is no guarding, no rigidity noted : Deferred. No Espinosa. EXTREMITIES: 2+ pitting edema in the lower extremity bilaterally and not cyanotic. No clubbing. Good capillary refill. SKIN: No skin breakdown. Vital Signs (last 8hr) Date Time Temp Pulse Resp B/P (MAP) Pulse Ox O2 Delivery O2 Flow Rate FiO2 12/07/24 08:23 103/60 12/07/24 04:09 98.8 96 20 103/60 98 Room Air LABS: Laboratory: Test 12/07/24 05:38 12/06/24 14:00 12/06/24 12:40 12/06/24 03:49 Range/Units White Blood Count 9.4 4.8-10.8 K/uL Red Blood Count 2.34 L 4.50-6.20 MIL/uL Hemoglobin 8.4 L 14.0-18.0 g/dL Hematocrit 24.4 L 42-54 % Mean Corpuscular Volume 104.3 H 79-99 fL Mean Corpuscular Hemoglobin 35.9 H 27.0-33.0 pg Mean Corpuscular Hemoglobin Concent 34.4 32.0-36.0 g/dL Red Cell Distribution Width 16.2 H 11.0-15.5 % Platelet Count 139 130-400 K/uL Mean Platelet Volume 8.7 7.5-10.5 fL Nucleated Red Blood Cells 0.0 0.0-0.19 % Sodium Level 133 L 136-145 mmol/L Potassium Level 4.0 3.5-5.1 mmol/L Chloride Level 102 101-111 mmol/L Carbon Dioxide Level 25 21-32 mmol/L Blood Urea Nitrogen 7 7-18 mg/dL Creatinine 0.6 0.5-1.3 mg/dL Glomerular Filtration Rate Calc 116 >90 mL/min Random Glucose 83 70-105 mg/dL Total Calcium 7.4 L 8.5-10.1 mg/dL Magnesium Level 1.60 L 1.80-2.40 mg/dL Total Bilirubin 1.5 H 0.2-1.0 mg/dL Aspartate Amino Transf (AST/SGOT) 89 H 10-37 U/L Alanine Aminotransferase (ALT/SGPT) 27 12-78 U/L Alkaline Phosphatase 157 H 50-136 U/L Total Protein 5.4 L 6.0-8.3 g/dL Albumin 2.0 L 3.5-5.0 g/dL Ammonia < 10 L 11-32 umol/L Body Fluid Source ASCITES Body Fluid Volume 7000 mL Body Fluid Color LT YELLOW LT YELLOW Body Fluid Supernatant Appearance CLEAR CLEAR Body Fluid WBC 203 /cu. mm. Body Fluid RBC 71 /cu. mm. Body Fluid Neutrophils 11.0 % Body Fluid Lymphocytes 34 % Body Fluid Monocytes % 9 % Body Fluid Macrophages (%) 12 Body Fluid Mesothelial Cells (%) 34 % Red Blood Cell Morphology See comments Current Medications Medications (Trade) Dose Ordered Sig/Ronak Route PRN Reason Start Time Stop Time Status Last Admin Dose Admin Acetaminophen (TYLenol 500MG TAB) 500 mg Q6H PRN PO MILD PAIN (1-3) 11/28/24 09:30 12/28/24 09:29 12/07/24 03:55 500 MG Acetaminophen/ Hydrocodone Bitart (NORco 5/325MG) 1 tab Q6H PRN PO MODERATE PAIN (4-6) 12/04/24 20:30 12/09/24 20:29 12/07/24 05:20 1 TAB Carvedilol (Coreg 3.125MG) 3.125 mg BID PO 12/05/24 09:00 01/04/25 08:59 12/07/24 08:23 3.125 MG Ceftriaxone Sodium (ROCEphine 1G INJ) 1 gm Q24H IVPB 11/28/24 09:30 12/08/24 09:29 12/07/24 08:23 1 GM Chlordiazepoxide HCl (LIBrium 25 MG CAP) 25 mg Q2H PRN PO ALCOHOL WITHDRAWAL PROTOCOL 11/29/24 09:00 12/06/24 08:59 DC 12/03/24 06:16 25 MG Chlordiazepoxide HCl (LIBrium 25 MG CAP) 50 mg Q1H PRN PO ALCOHOL WITHDRAWAL PROTOCOL 11/29/24 09:00 12/06/24 08:59 DC Famotidine (Pepcid 20mg Vial) 20 mg BID IV 11/28/24 21:00 11/28/24 09:59 DC Folic Acid (FOLic ACID 1 MG TABLET) 1 mg DAILY PO 11/29/24 09:00 12/29/24 08:59 12/07/24 08:22 1 MG Magnesium Sulfate 50 ml @ 0 mls/hr PROTOCOL IV 11/29/24 11:00 11/29/24 10:44 DC Magnesium Sulfate 50 ml @ 0 mls/hr PROTOCOL IV 12/02/24 09:30 12/05/24 09:01 DC 12/02/24 17:59 25 MLS/HR Magnesium Sulfate 50 ml @ 0 mls/hr PROTOCOL IV 12/05/24 09:00 01/04/25 08:59 12/06/24 06:48 25 MLS/HR Magnesium Sulfate 50 ml @ 0 mls/hr PROTOCOL IV 12/06/24 11:00 12/06/24 10:48 DC Magnesium Sulfate 50 ml @ 0 mls/hr PROTOCOL IV 12/07/24 09:00 12/07/24 08:54 DC Magnesium Sulfate 50 ml @ 0 mls/hr PROTOCOL PRN IV hypomagnesium 11/28/24 09:30 12/02/24 09:14 DC 12/02/24 04:24 25 MLS/HR Midodrine (PROAMatine 5 MG TABLET) 5 mg TID PO 12/03/24 14:00 01/02/25 13:59 12/07/24 08:22 5 MG Ondansetron HCl (zoFRAN 4MG INJ) 4 mg Q6H PRN IVP NAUSEA/VOMITING 11/28/24 18:00 12/28/24 17:59 Pantoprazole Sodium (PROTonix 40MG INJ) 40 mg BID IVP 11/28/24 10:00 12/28/24 09:59 12/07/24 08:25 40 MG Pharmacy Profile Note (Pharmacy Communication) 1 each PROTOCOL PRN MISC ETOH Withdrawal Score changes 11/29/24 09:00 12/06/24 08:59 DC Potassium Chloride 100 ml @ 100 mls/hr AD PRN IV POTASSIUM PROTOCOL 11/28/24 10:30 12/28/24 10:29 12/01/24 06:28 100 MLS/HR Potassium Chloride (K-Dur/Klor-Con 20meq) 20 meq AD PRN PO POTASSIUM PROTOCOL 11/28/24 10:30 12/28/24 10:29 12/02/24 19:59 20 MEQ Potassium Chloride (KCl 10% Elixir 20meq/15ml) 20 meq AD PRN PO POTASSIUM PROTOCOL 11/28/24 10:30 12/28/24 10:29 11/29/24 07:53 20 MEQ Sodium Chloride 1,000 ml @ 125 mls/hr Q8H IV 11/28/24 11:30 11/28/24 11:56 DC 11/28/24 11:37 125 MLS/HR Sodium Chloride (Sodium Chloride) 1,000 mg Q6H PO 11/28/24 14:00 12/28/24 13:59 12/07/24 08:25 1,000 MG Spironolactone (Aldactone 25mg) 25 mg DAILY PO 12/04/24 09:00 01/03/25 08:59 12/07/24 08:22 25 MG Thiamine HCl (Vitamin B-1) 100 mg DAILY IVP 11/29/24 09:00 11/28/24 14:03 DC Thiamine HCl (Vitamin B-1) 300 mg DAILY IVP 12/01/24 09:00 12/29/24 14:29 12/07/24 08:23 300 MG Thiamine HCl (Vitamin B-1) 300 mg Q8H IVP 11/28/24 14:30 11/30/24 09:05 DC 11/30/24 06:25 300 MG DIAGNOSTICS / RADIOLOGY: [ ] ASSESSMENT: Severe hyponatremia Suspected decompensated liver cirrhosis POA Alcohol use Fluid overload likely in setting of liver cirrhosis Ascites Anemia Intermittent hematochezia Hypertension Hypomagnesemia PLAN: patient is seen and examined at bedside, case discussed with the RN, no acute events overnight, comfortably in bed, tolerating diet, no nausea, no vomiting, no abdominal pain. The patient is alert oriented x3, hemodynamically stable, afebrile, saturating normal on room air. Leukocytosis resolved. Patient remains on IV antibiotics. Sodium level improving to 131. Case management consulted for [facility] plan [facility] versus [facility]. Paperwork done. We will follow up. NEURO: Minimize central acting medications as possible. Fall Precautions. Well lighted room through the day and minimize interruptions through the night to prevent acute delirium. PULMONARY: Supplemental 02 as needed BiPAP as necessary, for respiratory distress Titrate Fio2 to keep Spo2 > or = 90% DuoNebs and CPT as needed IS hourly while awake for pulmonary hygiene prn Out of bed to chair as tolerated Maintain aspiration precautions at all times CARDIOVASCULAR: Follow hemodynamics. Vital signs per facility protocol GI & NUTRITION: Continue nutritional support Aspirations precautions Prokinetic agents and laxatives as needed KIDNEYS & ELECTROLYTES: Strict monitoring of intake and output Daily weights Avoid nephrotoxic agents Monitor electrolytes and replace as needed Goal urine output of 30mL/hr or 0.5mL/kg/hr Medications to be dosed according to renal function. Avoid contrast if possible ENDOCRINE: Maintain blood glucose between 100-180 at all times. Insulin sliding scale for blood glucose management Hypoglycemia and hyperglycemia protocol in place INFECTIOUS DISEASE: Trend temperature, WBC and procalcitonin level Follow cultures, deescalate antibiotics as soon as possible. Panculture if new onset fever HEMATOLOGY & COAGULATION: Monitor H&H. Keep Hgb > 7 Transfuse 1 unit of PRBC for Hgb < 7 Transfuse 1 pack of platelets of platelets < 20, 000 Watch for any signs and symptoms of bleeding SKIN: Pressure ulcer prevention per facility protocol Specialty mattress as needed ORTHO/REHAB Continue PT/OT PRN: MEDICATIONS Tylenol 650 mg po every 4 hrs for fever zofran 4 mg IV every 6 hrs for n/v Hydralazine 5 mg IV every 4 hrs systolic pressure > 160 bowel regiment: lactulose 20 gm PO BID PRN constipation Supportive measures: Continue GI and DVT prophylaxis All questions answered time spent: > 35 min NELDA GRIJALVA MD Dec 07, 2024 09:12
--- NOTE | 2024-12-07 13:51 | PN ---
NEPHROLOGY PROGRESS NOTE Date/Time Patient Seen: Dec 07, 2024 SUBJECTIVE: This 54-year-old male with a history of cirrhosis, initially presented with renal dysfunction as well as significant hyponatremia. Serum sodium continues to slowly improve. The patient did have extensive GI workup, results of which are all noted and he is being seen as a followup visit for all of the above. The patient's serum sodium continues to slowly improve. Hemoglobin has remained fairly stable. The patient is encouraged with this therapy. Once the patient is discharged, he will need to continue with the fluid restriction, which will be the mainstay of therapy for the hyponatremia. Sodium level continues to improve, 133 mmol/L Abdominal ultrasound showed large amount of ascites. S/P paracentesis with 7 L removed on 12/06 He was seen in the medical floor, in no acute distress REVIEW OF SYSTEMS: GENERAL: Negative for any nausea, vomiting, fevers, chills, or weight loss. NEUROLOGIC: Negative for any blurry vision, blind spots, double vision, facial asymmetry, dysphagia, dysarthria, hemiparesis, hemisensory deficits, vertigo, ataxia. HEENT: Negative for any head trauma, neck trauma, neck stiffness, photophobia, phonophobia, sinusitis, rhinitis. CARDIAC: Negative for any chest pain, dyspnea on exertion, paroxysmal nocturnal dyspnea, peripheral edema. PULMONARY: Negative for any shortness of breath, wheezing, COPD, or TB exposure. GASTROINTESTINAL: Negative for any abdominal pain, nausea, vomiting, bright red blood per rectum, melena. GENITOURINARY: Negative for any dysuria, hematuria, incontinence. INTEGUMENTARY: Negative for any rashes, cuts, insect bites. RHEUMATOLOGIC: Negative for any joint pains, photosensitive rashes, history of vasculitis or kidney problems. HEMATOLOGIC: Negative for any abnormal bruising, frequent infections or bleeding. Vital Signs (last 8hr) Date Time Temp Pulse Resp B/P (MAP) Pulse Ox O2 Delivery O2 Flow Rate FiO2 12/07/24 12:05 98.1 86 18 105/70 Room Air 0.0 12/07/24 08:23 103/60 12/07/24 08:00 97.9 82 18 103/68 100 Room Air 0.0 PHYSICAL EXAM: GENERAL: Alert and oriented x 3. No acute distress. Well-nourished. EYES: EOMI. Anicteric. HENT: Moist mucous membranes. No scleral icterus. No cervical lymphadenopathy. LUNGS: Clear to auscultation bilaterally. No accessory muscle use. CARDIOVASCULAR: Regular rate and rhythm. No murmur. No JVD. ABDOMEN: Soft, non-tender and non-distended. No palpable masses. EXTREMITIES: No edema. Non-tender. SKIN: No rashes or lesions. Warm. NEUROLOGIC: No focal neurological deficits. CN II-XII grossly intact, but not individually tested. PSYCHIATRIC: Cooperative. Appropriate mood and affect. Current Medications Medications (Trade) Dose Ordered Sig/Ronak Route PRN Reason Start Time Stop Time Status Last Admin Dose Admin Acetaminophen (TYLenol 500MG TAB) 500 mg Q6H PRN PO MILD PAIN (1-3) 11/28/24 09:30 12/28/24 09:29 12/03/24 23:19 500 MG Ceftriaxone Sodium (ROCEphine 1G INJ) 1 gm Q24H IVPB 11/28/24 09:30 12/08/24 09:29 12/04/24 09:37 1 GM Chlordiazepoxide HCl (LIBrium 25 MG CAP) 25 mg Q2H PRN PO ALCOHOL WITHDRAWAL PROTOCOL 11/29/24 09:00 12/06/24 08:59 12/03/24 06:16 25 MG Chlordiazepoxide HCl (LIBrium 25 MG CAP) 50 mg Q1H PRN PO ALCOHOL WITHDRAWAL PROTOCOL 11/29/24 09:00 12/06/24 08:59 Famotidine (Pepcid 20mg Vial) 20 mg BID IV 11/28/24 21:00 11/28/24 09:59 DC Folic Acid (FOLic ACID 1 MG TABLET) 1 mg DAILY PO 11/29/24 09:00 12/29/24 08:59 12/04/24 09:37 1 MG Magnesium Sulfate 50 ml @ 0 mls/hr PROTOCOL IV 11/29/24 11:00 11/29/24 10:44 DC Magnesium Sulfate 50 ml @ 0 mls/hr PROTOCOL IV 12/02/24 09:30 01/01/25 09:29 12/02/24 17:59 25 MLS/HR Magnesium Sulfate 50 ml @ 0 mls/hr PROTOCOL PRN IV hypomagnesium 11/28/24 09:30 12/02/24 09:14 DC 12/02/24 04:24 25 MLS/HR Midodrine (PROAMatine 5 MG TABLET) 5 mg TID PO 12/03/24 14:00 01/02/25 13:59 12/04/24 09:37 5 MG Ondansetron HCl (zoFRAN 4MG INJ) 4 mg Q6H PRN IVP NAUSEA/VOMITING 11/28/24 18:00 12/28/24 17:59 Pantoprazole Sodium (PROTonix 40MG INJ) 40 mg BID IVP 11/28/24 10:00 12/28/24 09:59 12/04/24 09:38 40 MG Pharmacy Profile Note (Pharmacy Communication) 1 each PROTOCOL PRN MISC ETOH Withdrawal Score changes 11/29/24 09:00 12/06/24 08:59 Potassium Chloride 100 ml @ 100 mls/hr AD PRN IV POTASSIUM PROTOCOL 11/28/24 10:30 12/28/24 10:29 12/01/24 06:28 100 MLS/HR Potassium Chloride (K-Dur/Klor-Con 20meq) 20 meq AD PRN PO POTASSIUM PROTOCOL 11/28/24 10:30 12/28/24 10:29 12/02/24 19:59 20 MEQ Potassium Chloride (KCl 10% Elixir 20meq/15ml) 20 meq AD PRN PO POTASSIUM PROTOCOL 11/28/24 10:30 12/28/24 10:29 11/29/24 07:53 20 MEQ Sodium Chloride 1,000 ml @ 125 mls/hr Q8H IV 11/28/24 11:30 11/28/24 11:56 DC 11/28/24 11:37 125 MLS/HR Sodium Chloride (Sodium Chloride) 1,000 mg Q6H PO 11/28/24 14:00 12/28/24 13:59 12/04/24 09:37 1,000 MG Spironolactone (Aldactone 25mg) 25 mg DAILY PO 12/04/24 09:00 01/03/25 08:59 12/04/24 09:37 25 MG Thiamine HCl (Vitamin B-1) 100 mg DAILY IVP 11/29/24 09:00 11/28/24 14:03 DC Thiamine HCl (Vitamin B-1) 300 mg DAILY IVP 12/01/24 09:00 12/29/24 14:29 12/04/24 09:37 300 MG Thiamine HCl (Vitamin B-1) 300 mg Q8H IVP 11/28/24 14:30 11/30/24 09:05 DC 11/30/24 06:25 300 MG LABORATORY: [ ] Hematology Labs: Test 12/07/24 05:38 12/06/24 03:49 Range/Units White Blood Count 9.4 4.8-10.8 K/uL Red Blood Count 2.34 L 4.50-6.20 MIL/uL Hemoglobin 8.4 L 14.0-18.0 g/dL Hematocrit 24.4 L 42-54 % Mean Corpuscular Volume 104.3 H 79-99 fL Mean Corpuscular Hemoglobin 35.9 H 27.0-33.0 pg Mean Corpuscular Hemoglobin Concent 34.4 32.0-36.0 g/dL Red Cell Distribution Width 16.2 H 11.0-15.5 % Platelet Count 139 130-400 K/uL Mean Platelet Volume 8.7 7.5-10.5 fL Nucleated Red Blood Cells 0.0 0.0-0.19 % Red Blood Cell Morphology See comments Chemistry Labs: Test 12/07/24 05:38 12/06/24 14:00 Range/Units Sodium Level 133 L 136-145 mmol/L Potassium Level 4.0 3.5-5.1 mmol/L Chloride Level 102 101-111 mmol/L Carbon Dioxide Level 25 21-32 mmol/L Blood Urea Nitrogen 7 7-18 mg/dL Creatinine 0.6 0.5-1.3 mg/dL Glomerular Filtration Rate Calc 116 >90 mL/min Random Glucose 83 70-105 mg/dL Total Calcium 7.4 L 8.5-10.1 mg/dL Magnesium Level 1.60 L 1.80-2.40 mg/dL Total Bilirubin 1.5 H 0.2-1.0 mg/dL Aspartate Amino Transf (AST/SGOT) 89 H 10-37 U/L Alanine Aminotransferase (ALT/SGPT) 27 12-78 U/L Alkaline Phosphatase 157 H 50-136 U/L Total Protein 5.4 L 6.0-8.3 g/dL Albumin 2.0 L 3.5-5.0 g/dL Ammonia < 10 L 11-32 umol/L DIAGNOSTICS / RADIOLOGY: [facility] [place] [address] [place], [place] [id number] IMAGING REPORT Signed PATIENT: CHAN GARDINER MR#: [id number] : 1970 SEX: M AGE: 54 LOCATION: 1MS ORDER [id number] STATUS: ADM IN REPORT#: [id number] SERVICE 0800 REASON: Large volume ascites ORDERING PHYSICIAN: NELDA GRIJALVA MD PROCEDURE: PARA ABD - US ABDOMINAL PARACENTESIS IR US ABDOMINAL PARACENTESIS IR REASON: Large volume ascites TECHNIQUE: This procedure was performed by Dr. Johanny Centeno and Dr. Alyce Molina Paracentesis was performed with ultrasound guidance. The puncture site was selected in the Right upper quadrant and overlying skin prepped and draped in a sterile fashion. 1% Xylocaine infiltration was performed. Catheter was placed in the fluid using trocar technique. 7L were removed. Fluid sample was submitted for laboratory evaluation. The patient showed no evidence of complication during the procedure. Patient tolerated the procedure well. IMPRESSION: 1. Ultrasound-guided paracentesis. 2. 7 L were removed DICTATED BY: ALYCE MOLINA MD DATE: 12/06/24 1456 ELECTRONICALLY SIGNED BY: ALYCE MOLINA MD DATE: 12/06/24 1505 PATIENT: CHAN GARDINER MR#: [id number] : 1970 SEX: M AGE: 54 LOCATION: 4DH ORDER 1240 STATUS: ADM IN REPORT#: [id number] SERVICE 1239 REASON: ASCITES ORDERING PHYSICIAN: NELDA GRIJALVA MD PROCEDURE: ABD WALL - US ABD LIMITED/ABD WALL Abdominal ultrasound (limited, modified protocol). CLINICAL INDICATION: Ascites FINDINGS: Limited abdominal ultrasound was performed in order to detect ascites fluid. A low frequency probe was used to obtain survey images of all 4 quadrants of the abdomen. There are demonstrated ascites seen in all 4 quadrant the largest is seen in the right upper quadrant measuring 11.8 cm.. IMPRESSION: Large amount of ascites seen throughout the abdomen is amenable for paracentesis. DICTATED BY: ALYCE MOLINA MD DATE: 12/02/24 1426 ELECTRONICALLY SIGNED BY: ALYCE MOLINA MD DATE: 12/02/24 1430 PATIENT: CHAN GARDINER MR#: [id number] : 1970 SEX: M AGE: 54 LOCATION: [facility] ORDER [id number] STATUS: ADM IN REPORT#: [id number] SERVICE 0953 REASON: assess for cirrhosis ORDERING PHYSICIAN: MANOLO TENORIO MD PROCEDURE: ABDRUQLTD - US ABDOMINAL RUQ\LTD EXAMINATION: ULTRASOUND OF THE ABDOMEN (LIMITED) WITH COLOR DOPPLER. CLINICAL HISTORY: Assess for cirrhosis. COMPARISON: CT abdomen and pelvis without contrast from the same day. TECHNIQUE: Real-time grayscale ultrasound images of the abdomen. In addition, color Doppler is medically necessary to perform in order to evaluate vascularity and blood flow. FINDINGS: Liver: Bulky in caliber, the right hepatic lobe measures 16.4 cm in the craniocaudal dimension. There is increased echogenicity of the hepatic parenchyma. There is no focal hepatic abnormality or intrahepatic biliary ductal dilatation. There is normal spectral Doppler of the main portal vein (PSV is 10 cm/s). Gallbladder: Within normal limits with normal wall thickness (0.3 cm). No hyperemia or pericholecystic free fluid. There is no cholelithiasis. There is sludge. Common bile duct is normal in caliber, measuring 0.4 cm. Pancreas: Head appears normal in caliber and echotexture. No calcification or dilated pancreatic duct. Body and tail is obscured by overlying bowel gas. The right kidney is normal in caliber, the right kidney measures 10.3 x 5.4 x 3.5 cm in craniocaudal, AP, and transverse dimensions respectively. There is normal renal cortical thickness, and cortical echogenicity. There is no renal calculus or hydronephrosis. There is moderate free fluid in the peritoneal cavity. IMPRESSION: Hepatomegaly with hepatic steatosis. Gallbladder sludge. Moderate ascites. No significant interval changes. /[place] DICTATED BY: MARIANN HOWARD Jr., MD DATE: 11/29/24130 ELECTRONICALLY SIGNED BY: MARIANN HOWARD Jr., MD DATE: 11/29/24130 PATIENT: CHAN GARDINER MR#: [id number] : 1970 SEX: M AGE: 54 LOCATION: [facility] ORDER 9 STATUS: ADM IN [facility] REPORT#: [id number] SERVICE 4 REASON: assess for CHF ORDERING PHYSICIAN: MANOLO TENORIO MD PROCEDURE: ECHO CMP - ECHO 2-D COMPLETE APPROVED REPORT EXAM: Two-dimensional and M-mode echocardiogram with Doppler and color Doppler. Study Details: HTN INDICATION ICD: assess for chf 2D Dimensions RVDd 3.7 cm LVEF(%) 78.8 (>50%) LVED Vol(simp.) 119.0 mL IVSd 1.1 (0.7-1.1cm) FS(%) 48 % LVES Vol(simp.) 60.1 mL LVDd 4.8 (3.8-5.6cm) Ao Root(2D) 3.3 (2.0-3.7cm) LVEF(%, simp.) 49 % PWd 0.8 (0.7-1.1cm) LVOT diam 1.8 (1.8-2.4cm) LA ESV INDEX (BP) 25.55 mL/m2 IVSs 1.4 cm LVDs 2.5 (2.5-4.0cm) PWs 1.7 cm Deformation Strain Apical 4 19.9 % Apical 2 15.7 % Apical 3 19.1 % Global Strain 18.3 % M-Mode Dimensions EPSS 0.4 cm LA (MM) 4.3 (1.6-4.0cm) Ao Root(MM) 2.9 (2.0-3.7cm) Aortic Valve AoV Vmax 1.8 m/s Ao Peak GR 12.7 mmHg LVOT Vmax 1.4 m/s AoV VTI 0.3 m Ao Mean GR 6.9 mmHg LVOT VTI 0.26 m KIRA (VMAX) 2.01 cm2 KIRA (VTI) 2.0 cm2 Mitral Valve MV E Vmax 68.4 cm/s DECEL Time 203 ms MV A Vmax 76.0 cm/s P 1/2 T 59 ms E/A ratio 0.9 MVA (PHT) 3.7 cm2 TDI E/E' Medial 7.6 E/E' Lateral 7.6 Medial E' Peak V 8.97 cm/s Lateral E' Peak V 8.97 cm/s Pulmonary Valve PV Vmax 1.8 m/s PV VTI 0.33 m PV Mean GR 5.2 mmHg PV Peak GR 12.3 mmHg Left Ventricle The left ventricle is normal size. There is normal LV segmental wall motion. There is normal left ventricular wall thickness. LVEF is >55%. The left ventricular diastolic function is normal. Right Ventricle The right ventricle is normal size. The right ventricular systolic function is normal. Atria The left atrium size is normal. The interatrial septum is intact with no evidence for an atrial septal defect. The right atrium size is normal. Aortic Valve Aortic valve is trileaflet. The aortic valve is mildly thickened. No aortic regurgitation is present. There is minimal valvular aortic stenosis. Mitral Valve The mitral valve is normal in structure. There is no evidence of significant mitral regurgitation. There is no mitral valve stenosis. Tricuspid Valve The tricuspid valve is normal in structure. There is no tricuspid valve regurgitation noted. Pulmonic Valve The pulmonary valve is normal in structure. There is trace pulmonic valvular regurgitation. Great Vessels The aortic root is normal in size. The ascending aorta is normal in size. The IVC is normal in size and collapses >50% with inspiration. Pericardium There is no pericardial effusion. Ascites is present. Conclusion LVEF is >55%. Aortic valve is trileaflet. The aortic valve is mildly thickened. DICTATED BY: GORDON JACINTO MD DATE: 11/28/24 1234 ELECTRONICALLY SIGNED BY: GORDON JACINTO MD DATE: 11/28/242106 PATIENT: CHAN GARDINER MR#: [id number] : 1970 SEX: M AGE: 54 LOCATION: [facility] ORDER STATUS: ADM IN REPORT#: [id number] SERVICE REASON: abdominal distention ORDERING PHYSICIAN: MANOLO TENORIO MD PROCEDURE: ABD PEL WO - CT ABDOMEN/PELVIS W/O CONTRAST EXAM: CT Abdomen and Pelvis Without IV contrast CLINICAL HISTORY: abdominal distention TECHNIQUE: Axial computed tomography images of the abdomen and pelvis without intravenous contrast. CONTRAST: No IV contrast. COMPARISON: None provided. FINDINGS: LUNG BASES: Minimal right pleural effusion. Dependent atelectatic changes in the left lower lobe. No pleural effusions are seen. LIVER: Diffuse fatty infiltration of the liver. GALLBLADDER AND BILE DUCTS: The gallbladder appears within normal limits. No radioopaque gallstones are seen. No biliary ductal dilatation is evident. PANCREAS: Unremarkable. SPLEEN: Tiny calcified granuloma in the spleen. ADRENAL GLANDS: Unremarkable. KIDNEYS, URETERS, AND BLADDER: The kidneys appear within normal limits. There is no hydronephrosis or hydroureter. No urinary calculi are seen. STOMACH AND BOWEL: Unremarkable appearance of the stomach and bowel. No evidence of bowel obstruction. No evidence suggesting enteritis or colitis. APPENDIX: No evidence of acute appendicitis on CT examination. PERITONEUM: Large ascites. Diffuse omental and mesenteric fat stranding. No free air. LYMPH NODES: No lymphadenopathy is evident. REPRODUCTIVE: Unremarkable as visualized. VASCULATURE: No evidence of abdominal aortic aneurysm. Atheromatous wall calcifications in the abdominal aorta and its branches. BONES AND SOFT TISSUE: No aggressive appearing osseous lesion. No acute osseous pathology is evident. Mild multilevel degenerative changes in the visualized spine. Diffuse edematous changes in the abdominal wall and scrotal wall. There are a few phleboliths in the pelvis. IMPRESSION: 1. Large ascites with omental and mesenteric fat stranding. 2. Diffuse edematous changes in the abdominal and scrotal wall. 3. Minimal right pleural effusion. /[place] DICTATED BY: MARIANN HOWARD Jr., MD DATE: 11/28/241148 ELECTRONICALLY SIGNED BY: MARIANN HOWARD Jr., MD DATE: 11/28/241148 PATIENT: CHAN GARDINER MR#: [id number] : 1970 SEX: M AGE: 54 LOCATION: [facility] ORDER STATUS: REG ER REPORT#: [id number] SERVICE REASON: sob ORDERING PHYSICIAN: LEATHA GUERRA MD PROCEDURE: CXR1VW - CHEST 1VW EXAM: CR Chest, 1 View. CLINICAL HISTORY: sob COMPARISON: None provided. FINDINGS: LUNGS: There is no mass, infiltrate, or acute pulmonary abnormality. PLEURAL SPACES: No evidence of pleural effusion or pneumothorax. MEDIASTINUM: The cardiomediastinal silhouette is within normal limits. BONES: No aggressive appearing osseous lesion seen. IMPRESSION: No acute cardiopulmonary pathology is evident. /[place] DICTATED BY: MARIANN HOWARD Jr., MD DATE: 11/28/24942 ELECTRONICALLY SIGNED BY: MARIANN HOWARD Jr., MD DATE: 11/28/24942 ASSESSMENT: Severe hyponatremia Suspected decompensated liver cirrhosis POA Alcohol use Fluid overload likely in setting of liver cirrhosis Ascites Anemia Intermittent hematochezia Hypertension Hypomagnesemia PLAN: Labs, diagnostic, radiologic exams reviewed and interpreted by myself and supervising physician. We have reviewed external records in detail Continue with fluid restriction Require close monitoring of renal function and electrolytes Order CBC, CMP, and electrolytes in am BiPAP as necessary, for respiratory distress Monitor blood pressure adjust medication doses as needed Avoid hypotensive episodes May use Dilaudid 0.5 mg IV every 6 hours as needed for severe pain Monitor blood sugars Strict intake, output, and daily weight should be monitored Will continue to monitor renal function, anemia, electrolytes Treatment plan discussed with patient Questions were answered We have discussed with the other team physicians in detail about the care plan We will continue to monitor the patient closely ATTESTATION BY PHYSICIAN I have seen and examined the patient. I reviewed the documentation, medical decision making, and treatment plan as noted by the mid-level provider above. I agree with the findings and plan of care. HARJINDER CORTÉS MD, [facility] Dec 07, 2024 13:51
[2024-12-07 16:23] LABS: INR 1.38 (0.85-1.15)
[2024-12-08 03:40] LABS: NUCLEATED RED BLOOD CELLS 0.0 % (0.0-0.19); PLATELET COUNT (AUTO) 135.0 K/uL (130-400); RED BLOOD CELL COUNT(AUTO) 2.27 MIL/uL (4.50-6.20); RED CELL DISTRIBUTION WIDTH 16.6 % (11.0-15.5); WHITE BLOOD COUNT (AUTO) 11.9 K/uL (4.8-10.8)
[2024-12-08 03:55] LABS: ASPARTATE AMINOTRANSFERASE 94.0 U/L (10-37); CREATININE 0.6 mg/dL (0.5-1.3); GLOMERULAR FILTR. RATE CALC 116.0 mL/min (>90); GLUCOSE,RANDOM 100.0 mg/dL (70-105); SODIUM SERUM 134.0 mmol/L (136-145); TOTAL PROTEIN, SERUM 5.4 g/dL (6.0-8.3); UREA NITROGEN, BLOOD 8.0 mg/dL (7-18)
[2024-12-08 04:00] VITALS: BP 115/75; PULSE 92; RESP 16; TEMP 97.8
[2024-12-08 08:00] VITALS: BP 108/68; PULSE 92; RESP 18; TEMP 98.1
[2024-12-08] MEDS: THIAMINE HCL 100 MG TABLET PO SCH (08:26)
[2024-12-08] MEDS ORDERED: MAGNESIUM 2GM PREMIX 50ML 50 ML IV SCH (09:30)
[2024-12-08 09:36] VITALS: O2SAT 97
--- NOTE | 2024-12-08 10:10 | DS ---
Discharge Summary Hospital Course Summary: The patient initially admitted to the hospital November 28, 2024 with the following history of the present illness: 54-year-old male with past medical history of hypertension who presented to the hospital secondary to generalized body weakness, abdominal distention and lower extremity edema. Patient states for the past one week he has been feeling weak in his lower extremities. He has not been able to ambulate very much. This also noted nausea and vomiting with associated abdominal distention. Denies any fever, chills, shortness of breath, chest pain, cough, abdominal pain. Denied any changes in his bowel movement. He has noted some blood with his bowel movement. His last recent bowel movement was negative. Denies any melena but has noted some hematochezia. Denied any dysuria, changes in his urination. He has had decreased appetite for the past few days. He has been tolerating liquids and solids at home. Denies any dysphagia. Denies any falls, syncopal episode. He has noted weight gain recently. He is alert oriented x4 and is able to answer questions and follow conversations. Labs were notable for white count of 13.4, hemoglobin was 9.8, platelet count was 157k, sodium was 112, potassium was 3.6, chloride was 80, magnesium was 1.3, creatinine was 0.5 Patient underwent a chest x-ray which showed no acute abnormality HOSPITAL COURSE 11/29 patient is seen and examined at bedside, case discussed with the RN, no acute events overnight, the patient is alert oriented x3, however feels mildly dizzy, weak, noted to have mild tremor, BP 102/65, heart rate of 93, afebrile, saturating normal on room air, CBC with a hemoglobin 8.2, hematocrit 22.1, WBC 10.1, with a platelet count of 134, sodium 116, potassium 3.7, BUN of five, creatinine 0.6, calcium 7.2. Iron level of 41, magnesium 1.4. We will start the patient on CIWA protocol, patient is started on sodium chloride tablet 1 g p.o. q.6 hours per Nephrology, continue to follow input and recommendation. Follow critical care input and recommendation. Continue Protonix 40 mg IV b.i.d.. Follow stool occult blood, if positive we will request GI consultation. We will start the patient on Venofer. We will give 2 g of magnesium sulfate IV x1, follow a.m. labs. Follow amylase and lipase levels, follow troponin, patient complaining of midepigastric discomfort. 11/30 patient is seen and examined at bedside, case discussed with the RN, patient was getting mildly agitated, received a dose of Librium, the time of my visit he is comfortably in bed. EGD done, findings of mild gastritis. Plan for colonoscopy tomorrow. Blood pressure 119/77, heart rate of 116, he is saturating normal on room air, leukocytosis resolved, WBC 10.8, sodium level stable at 118, BUN and creatinine within normal range. Continue to follow critical care input and recommendation, follow GI input and recommendation, continue to replace IV per protocol, continue with CIWA protocol. 12/01 patient is seen and examined at bedside, case discussed with the RN, no acute events overnight, patient currently NPO, scheduled for colonoscopy today, BP 111/73, afebrile, he is saturating normal on room air, he is alert oriented x3, denies chest pain, no shortness a breath, no nausea, no vomiting, no signs of alcohol withdrawal. Sodium level today 122. Patient underwent an EGD and was found to have moderate portal hypertensive gastropathy, antral gastritis, no esophageal varices noted 12/02 patient is seen and examined at bedside, case discussed with the RN, no acute events overnight, hemodynamically stable, afebrile, he is saturating normal on room air, he is alert oriented x3, denies chest pain, no shortness a breath, no nausea, no vomiting, no signs of alcohol withdrawal. Sodium level today 123. Continue the patient on sodium chloride tablets 1 g p.o. q.6 hours, continue to follow Nephrology input and recommendation. Patient underwent colonoscopy 12/01/2024, tolerated the procedure well. Patient was found to have a rectal polyp, status post removal. 12/03 patient is seen and examined at bedside, comfortably in bed, alert oriented x3. Status post EGD during this admission found to have moderate portal hypertensive gastropathy, antral gastritis, no esophageal varices noted. Patient also status post colonoscopy during this admission, down to have a rectal polyp, status post removal. Repeat abdominal ultrasound 12/02/24 again showing large volume ascites, IR consultation requested for repeat paracentesis. Start the patient on furosemide 10 mg p.o. daily and Aldactone 25 mg p.o. daily, close monitoring of the patient's blood pressure and electrolytes with replacements IV per protocol. The patient looks and feels very weak, he is requesting placement. Physical therapy to evaluate the patient. Case management consultation requested, we will follow. 12/04 patient is seen and examined at bedside, case discussed with the RN, no acute events overnight, alert oriented x3, hemodynamically stable, no chest pain, shortness shortness for breath, no nausea, no vomiting. Repeat abdominal ultrasound, showing reaccumulation of ascitic fluid, we will have IR repeat the. career services manager consulted for discharge plan to [facility] facility versus rehab. Patient alert oriented x3 watching TV at the time of my visit. 12/05 patient is seen and examined at bedside, case discussed with the RN, no acute events overnight, alert oriented x3, hemodynamically stable, no chest pain, shortness shortness for breath, no nausea, no vomiting. Repeat abdominal ultrasound, showing reaccumulation of ascitic fluid, requested ultrasound-guided paracentesis to be done by IR tomorrow. career services manager consulted for discharge plan to [facility] facility versus rehab. 12/06 patient is seen and examined, remains alert oriented x3, discussed with the RN, patient is scheduled for therapeutic paracentesis today. Case management consulted for discharge plan to [facility] facility per patient's request. 12/07 patient is seen and examined at bedside, case discussed with the RN, no acute events overnight, comfortably in bed, tolerating diet, no nausea, no vomiting, no abdominal pain. The patient is alert oriented x3, hemodynamically stable, afebrile, saturating normal on room air. Leukocytosis resolved. Patient remains on IV antibiotics. Sodium level improving to 131. Case management consulted for discharge plan to [facility] facility versus rehab. Paperwork done. We will follow up. 12/08 patient is seen and examined at bedside, no acute events overnight, discussed with the RN, patient has been accepted to [facility] ([facility]) for continuation of medical management. Discussed with the patient, agreed and understood the information provided. GENERAL APPEARANCE: The patient is awake, alert, and oriented, in no acute cardiopulmonary distress. NEUROLOGICAL: Cranial nerves II-XII grossly intact. Motor is 5/5 in bilateral upper and lower extremities proximal to distal. No sensory deficits. HEENT: Face is symmetric. Pupils are equal and reactive. Extraocular movements are intact. NECK: Supple. No JVD. No thyromegaly. No submental, submandibular, pre- /postauricular, occipital or supraclavicular lymphadenopathy. CHEST: Normal chest expansion. No Telemetry. LUNGS: Absence of any rales, rhonchi or any wheezing. CARDIOVASCULAR: Regular. S1 and S2 normal. No appreciable rubs, murmurs or gallops. ABDOMEN: Soft, minimal distention, no rigidity, no guarding. : Deferred. No [place]spin[place]. EXTREMITIES: No pedal edema. SKIN: No skin breakdown. Assessment/Plan: Final diagnosis Acute upper GI bleed, POA Acute blood loss anemia, POA Alcoholic liver cirrhosis, POA Severe hyponatremia History of alcohol abuse Large volume ascites, status post diagnostic and therapeutic paracentesis Hypertension Hypomagnesemia Discharge Instructions: Patient to be discharged to [facility] facility, return to hospital if condition changes. Patient agreed with plan and understood the information provided. Home Medications: Reported Medications Losartan Potassium (Losartan Potassium) 50 Mg Tablet, 1 TAB PO BID for 30 Days, #30 TAB 0 Refills 11/28/24 Time spent arranging discharge: 31-60 minutes NELDA GRIJALVA MD Dec 08, 2024 10:10
[2024-12-08 11:48] VITALS: BP 110/65; PULSE 88; RESP 16; TEMP 98.3
[2024-12-08] MEDS: LACTULOSE 20 GM/30 ML UDCUP PO PRN (12:00)
--- NOTE | 2024-12-08 12:36 | PN ---
NEPHROLOGY PROGRESS NOTE Date/Time Patient Seen: Dec 08, 2024 SUBJECTIVE: This 54-year-old male with a history of cirrhosis, initially presented with renal dysfunction as well as significant hyponatremia. Serum sodium continues to slowly improve. The patient did have extensive GI workup, results of which are all noted and he is being seen as a followup visit for all of the above. The patient's serum sodium continues to slowly improve. Hemoglobin has remained fairly stable. The patient is encouraged with this therapy. Once the patient is discharged, he will need to continue with the fluid restriction, which will be the mainstay of therapy for the hyponatremia. Sodium level continues to improve, 134 mmol/L Abdominal ultrasound showed large amount of ascites. S/P paracentesis with 7 L removed on 12/06 Case management coordinating SNF placement, pending disposition later today He was seen in the medical floor, in no acute distress REVIEW OF SYSTEMS: GENERAL: Negative for any nausea, vomiting, fevers, chills, or weight loss. NEUROLOGIC: Negative for any blurry vision, blind spots, double vision, facial asymmetry, dysphagia, dysarthria, hemiparesis, hemisensory deficits, vertigo, ataxia. HEENT: Negative for any head trauma, neck trauma, neck stiffness, photophobia, phonophobia, sinusitis, rhinitis. CARDIAC: Negative for any chest pain, dyspnea on exertion, paroxysmal nocturnal dyspnea, peripheral edema. PULMONARY: Negative for any shortness of breath, wheezing, COPD, or TB exposure. GASTROINTESTINAL: Negative for any abdominal pain, nausea, vomiting, bright red blood per rectum, melena. GENITOURINARY: Negative for any dysuria, hematuria, incontinence. INTEGUMENTARY: Negative for any rashes, cuts, insect bites. RHEUMATOLOGIC: Negative for any joint pains, photosensitive rashes, history of vasculitis or kidney problems. HEMATOLOGIC: Negative for any abnormal bruising, frequent infections or bleeding. Vital Signs (last 8hr) Date Time Temp Pulse Resp B/P (MAP) Pulse Ox O2 Delivery O2 Flow Rate FiO2 12/08/24 11:48 98.2 88 16 110/65 96 Room Air 12/08/24 09:36 97 Room Air* 0 21 12/08/24 08:26 108/68 12/08/24 08:00 98.1 92 18 108/68 97 Room Air 0.0 PHYSICAL EXAM: GENERAL: Alert and oriented x 3. No acute distress. Well-nourished. EYES: EOMI. Anicteric. HENT: Moist mucous membranes. No scleral icterus. No cervical lymphadenopathy. LUNGS: Clear to auscultation bilaterally. No accessory muscle use. CARDIOVASCULAR: Regular rate and rhythm. No murmur. No JVD. ABDOMEN: Soft, non-tender and non-distended. No palpable masses. EXTREMITIES: No edema. Non-tender. SKIN: No rashes or lesions. Warm. NEUROLOGIC: No focal neurological deficits. CN II-XII grossly intact, but not individually tested. PSYCHIATRIC: Cooperative. Appropriate mood and affect. Current Medications Medications (Trade) Dose Ordered Sig/Ronak Route PRN Reason Start Time Stop Time Status Last Admin Dose Admin Acetaminophen (TYLenol 500MG TAB) 500 mg Q6H PRN PO MILD PAIN (1-3) 11/28/24 09:30 12/28/24 09:29 12/03/24 23:19 500 MG Ceftriaxone Sodium (ROCEphine 1G INJ) 1 gm Q24H IVPB 11/28/24 09:30 12/08/24 09:29 12/04/24 09:37 1 GM Chlordiazepoxide HCl (LIBrium 25 MG CAP) 25 mg Q2H PRN PO ALCOHOL WITHDRAWAL PROTOCOL 11/29/24 09:00 12/06/24 08:59 12/03/24 06:16 25 MG Chlordiazepoxide HCl (LIBrium 25 MG CAP) 50 mg Q1H PRN PO ALCOHOL WITHDRAWAL PROTOCOL 11/29/24 09:00 12/06/24 08:59 Famotidine (Pepcid 20mg Vial) 20 mg BID IV 11/28/24 21:00 11/28/24 09:59 DC Folic Acid (FOLic ACID 1 MG TABLET) 1 mg DAILY PO 11/29/24 09:00 12/29/24 08:59 12/04/24 09:37 1 MG Magnesium Sulfate 50 ml @ 0 mls/hr PROTOCOL IV 11/29/24 11:00 11/29/24 10:44 DC Magnesium Sulfate 50 ml @ 0 mls/hr PROTOCOL IV 12/02/24 09:30 01/01/25 09:29 12/02/24 17:59 25 MLS/HR Magnesium Sulfate 50 ml @ 0 mls/hr PROTOCOL PRN IV hypomagnesium 11/28/24 09:30 12/02/24 09:14 DC 12/02/24 04:24 25 MLS/HR Midodrine (PROAMatine 5 MG TABLET) 5 mg TID PO 12/03/24 14:00 01/02/25 13:59 12/04/24 09:37 5 MG Ondansetron HCl (zoFRAN 4MG INJ) 4 mg Q6H PRN IVP NAUSEA/VOMITING 11/28/24 18:00 12/28/24 17:59 Pantoprazole Sodium (PROTonix 40MG INJ) 40 mg BID IVP 11/28/24 10:00 12/28/24 09:59 12/04/24 09:38 40 MG Pharmacy Profile Note (Pharmacy Communication) 1 each PROTOCOL PRN MISC ETOH Withdrawal Score changes 11/29/24 09:00 12/06/24 08:59 Potassium Chloride 100 ml @ 100 mls/hr AD PRN IV POTASSIUM PROTOCOL 11/28/24 10:30 12/28/24 10:29 12/01/24 06:28 100 MLS/HR Potassium Chloride (K-Dur/Klor-Con 20meq) 20 meq AD PRN PO POTASSIUM PROTOCOL 11/28/24 10:30 12/28/24 10:29 12/02/24 19:59 20 MEQ Potassium Chloride (KCl 10% Elixir 20meq/15ml) 20 meq AD PRN PO POTASSIUM PROTOCOL 11/28/24 10:30 12/28/24 10:29 11/29/24 07:53 20 MEQ Sodium Chloride 1,000 ml @ 125 mls/hr Q8H IV 11/28/24 11:30 11/28/24 11:56 DC 11/28/24 11:37 125 MLS/HR Sodium Chloride (Sodium Chloride) 1,000 mg Q6H PO 11/28/24 14:00 12/28/24 13:59 12/04/24 09:37 1,000 MG Spironolactone (Aldactone 25mg) 25 mg DAILY PO 12/04/24 09:00 01/03/25 08:59 12/04/24 09:37 25 MG Thiamine HCl (Vitamin B-1) 100 mg DAILY IVP 11/29/24 09:00 11/28/24 14:03 DC Thiamine HCl (Vitamin B-1) 300 mg DAILY IVP 12/01/24 09:00 12/29/24 14:29 12/04/24 09:37 300 MG Thiamine HCl (Vitamin B-1) 300 mg Q8H IVP 11/28/24 14:30 11/30/24 09:05 DC 11/30/24 06:25 300 MG LABORATORY: [ ] Hematology Labs: Test 12/08/24 03:17 Range/Units White Blood Count 11.9 #H 4.8-10.8 K/uL Red Blood Count 2.27 L 4.50-6.20 MIL/uL Hemoglobin 8.1 L 14.0-18.0 g/dL Hematocrit 24.4 L 42-54 % Mean Corpuscular Volume 107.5 H 79-99 fL Mean Corpuscular Hemoglobin 35.7 H 27.0-33.0 pg Mean Corpuscular Hemoglobin Concent 33.2 32.0-36.0 g/dL Red Cell Distribution Width 16.6 H 11.0-15.5 % Platelet Count 135 130-400 K/uL Mean Platelet Volume 8.8 7.5-10.5 fL Nucleated Red Blood Cells 0.0 0.0-0.19 % Chemistry Labs: Test 12/08/24 03:17 12/06/24 14:00 Range/Units Sodium Level 134 L 136-145 mmol/L Potassium Level 4.0 3.5-5.1 mmol/L Chloride Level 103 101-111 mmol/L Carbon Dioxide Level 28 21-32 mmol/L Blood Urea Nitrogen 8 7-18 mg/dL Creatinine 0.6 0.5-1.3 mg/dL Glomerular Filtration Rate Calc 116 >90 mL/min Random Glucose 100 70-105 mg/dL Total Calcium 7.0 L 8.5-10.1 mg/dL Magnesium Level 1.70 L 1.80-2.40 mg/dL Total Bilirubin 1.0 # 0.2-1.0 mg/dL Aspartate Amino Transf (AST/SGOT) 94 H 10-37 U/L Alanine Aminotransferase (ALT/SGPT) 24 12-78 U/L Alkaline Phosphatase 193 H 50-136 U/L Total Protein 5.4 L 6.0-8.3 g/dL Albumin 1.8 L 3.5-5.0 g/dL Ammonia < 10 L 11-32 umol/L Coagulation Labs: Test 12/07/24 05:38 Range/Units Prothrombin Time 14.2 H 9.6-11.6 SEC Prothromb Time International Ratio 1.38 H 0.85-1.15 DIAGNOSTICS / RADIOLOGY: [place] [id number] [address] IMAGING REPORT Signed PATIENT: CHAN GARDINER MR#: [id number] : 1970 SEX: M AGE: 54 LOCATION: 1MS ORDER 1115 STATUS: ADM IN REPORT#: [id number] SERVICE 0800 REASON: Large volume ascites ORDERING PHYSICIAN: NELDA GRIJALVA MD PROCEDURE: PARA ABD - US ABDOMINAL PARACENTESIS IR US ABDOMINAL PARACENTESIS IR REASON: Large volume ascites TECHNIQUE: This procedure was performed by Dr. Johanny Centeno and Dr. Alyce Molina Paracentesis was performed with ultrasound guidance. The puncture site was selected in the Right upper quadrant and overlying skin prepped and draped in a sterile fashion. 1% Xylocaine infiltration was performed. Catheter was placed in the fluid using trocar technique. 7L were removed. Fluid sample was submitted for laboratory evaluation. The patient showed no evidence of complication during the procedure. Patient tolerated the procedure well. IMPRESSION: 1. Ultrasound-guided paracentesis. 2. 7 L were removed DICTATED BY: ALYCE MOLINA MD DATE: 12/06/24 1456 ELECTRONICALLY SIGNED BY: ALYCE MOLINA MD DATE: 12/06/24 1505 PATIENT: CHAN GARDINER MR#: [id number] : 1970 SEX: M AGE: 54 LOCATION: 4DH ORDER 1240 STATUS: ADM IN REPORT#: [id number] SERVICE 1239 REASON: ASCITES ORDERING PHYSICIAN: NELDA GRIJALVA MD PROCEDURE: ABD WALL - US ABD LIMITED/ABD WALL Abdominal ultrasound (limited, modified protocol). CLINICAL INDICATION: Ascites FINDINGS: Limited abdominal ultrasound was performed in order to detect ascites fluid. A low frequency probe was used to obtain survey images of all 4 quadrants of the abdomen. There are demonstrated ascites seen in all 4 quadrant the largest is seen in the right upper quadrant measuring 11.8 cm.. IMPRESSION: Large amount of ascites seen throughout the abdomen is amenable for paracentesis. DICTATED BY: ALYCE MOLINA MD DATE: 12/02/24 142 ELECTRONICALLY SIGNED BY: ALYCE MOLINA MD DATE: 12/02/24 143 PATIENT: CHAN GARDINER MR#: [id number] : 1970 SEX: M AGE: 54 LOCATION: 2CH ORDER 3 STATUS: ADM IN REPORT#: [id number] SERVICE REASON: assess for cirrhosis ORDERING PHYSICIAN: MANOLO TENORIO MD PROCEDURE: ABDRUQLTD - US ABDOMINAL RUQ\LTD EXAMINATION: ULTRASOUND OF THE ABDOMEN (LIMITED) WITH COLOR DOPPLER. CLINICAL HISTORY: Assess for cirrhosis. COMPARISON: CT abdomen and pelvis without contrast from the same day. TECHNIQUE: Real-time grayscale ultrasound images of the abdomen. In addition, color Doppler is medically necessary to perform in order to evaluate vascularity and blood flow. FINDINGS: Liver: Bulky in caliber, the right hepatic lobe measures 16.4 cm in the craniocaudal dimension. There is increased echogenicity of the hepatic parenchyma. There is no focal hepatic abnormality or intrahepatic biliary ductal dilatation. There is normal spectral Doppler of the main portal vein (PSV is 10 cm/s). Gallbladder: Within normal limits with normal wall thickness (0.3 cm). No hyperemia or pericholecystic free fluid. There is no cholelithiasis. There is sludge. Common bile duct is normal in caliber, measuring 0.4 cm. Pancreas: Head appears normal in caliber and echotexture. No calcification or dilated pancreatic duct. Body and tail is obscured by overlying bowel gas. The right kidney is normal in caliber, the right kidney measures 10.3 x 5.4 x 3.5 cm in craniocaudal, AP, and transverse dimensions respectively. There is normal renal cortical thickness, and cortical echogenicity. There is no renal calculus or hydronephrosis. There is moderate free fluid in the peritoneal cavity. IMPRESSION: Hepatomegaly with hepatic steatosis. Gallbladder sludge. Moderate ascites. No significant interval changes. /[place] DICTATED BY: MARIANN HOWARD Jr., MD DATE: 11/29/24130 ELECTRONICALLY SIGNED BY: MARIANN HOWARD Jr., MD DATE: 11/29/24130 PATIENT: CHAN GARDINER MR#: [id number] : 1970 SEX: M AGE: 54 LOCATION: [facility] ORDER 9 STATUS: [facility] REPORT#: [id number] SERVICE 4 REASON: assess for CHF ORDERING PHYSICIAN: MANOLO TENORIO MD PROCEDURE: ECHO CMP - ECHO 2-D COMPLETE APPROVED REPORT EXAM: Two-dimensional and M-mode echocardiogram with Doppler and color Doppler. Study Details: HTN INDICATION ICD: assess for chf 2D Dimensions RVDd 3.7 cm LVEF(%) 78.8 (>50%) LVED Vol(simp.) 119.0 mL IVSd 1.1 (0.7-1.1cm) FS(%) 48 % LVES Vol(simp.) 60.1 mL LVDd 4.8 (3.8-5.6cm) Ao Root(2D) 3.3 (2.0-3.7cm) LVEF(%, simp.) 49 % PWd 0.8 (0.7-1.1cm) LVOT diam 1.8 (1.8-2.4cm) LA ESV INDEX (BP) 25.55 mL/m2 IVSs 1.4 cm LVDs 2.5 (2.5-4.0cm) PWs 1.7 cm Deformation Strain Apical 4 19.9 % Apical 2 15.7 % Apical 3 19.1 % Global Strain 18.3 % M-Mode Dimensions EPSS 0.4 cm LA (MM) 4.3 (1.6-4.0cm) Ao Root(MM) 2.9 (2.0-3.7cm) Aortic Valve AoV Vmax 1.8 m/s Ao Peak GR 12.7 mmHg LVOT Vmax 1.4 m/s AoV VTI 0.3 m Ao Mean GR 6.9 mmHg LVOT VTI 0.26 m KIRA (VMAX) 2.01 cm2 KIRA (VTI) 2.0 cm2 Mitral Valve MV E Vmax 68.4 cm/s DECEL Time 203 ms MV A Vmax 76.0 cm/s P 1/2 T 59 ms E/A ratio 0.9 MVA (PHT) 3.7 cm2 TDI E/E' Medial 7.6 E/E' Lateral 7.6 Medial E' Peak V 8.97 cm/s Lateral E' Peak V 8.97 cm/s Pulmonary Valve PV Vmax 1.8 m/s PV VTI 0.33 m PV Mean GR 5.2 mmHg PV Peak GR 12.3 mmHg Left Ventricle The left ventricle is normal size. There is normal LV segmental wall motion. There is normal left ventricular wall thickness. LVEF is >55%. The left ventricular diastolic function is normal. Right Ventricle The right ventricle is normal size. The right ventricular systolic function is normal. Atria The left atrium size is normal. The interatrial septum is intact with no evidence for an atrial septal defect. The right atrium size is normal. Aortic Valve Aortic valve is trileaflet. The aortic valve is mildly thickened. No aortic regurgitation is present. There is minimal valvular aortic stenosis. Mitral Valve The mitral valve is normal in structure. There is no evidence of significant mitral regurgitation. There is no mitral valve stenosis. Tricuspid Valve The tricuspid valve is normal in structure. There is no tricuspid valve regurgitation noted. Pulmonic Valve The pulmonary valve is normal in structure. There is trace pulmonic valvular regurgitation. Great Vessels The aortic root is normal in size. The ascending aorta is normal in size. The IVC is normal in size and collapses >50% with inspiration. Pericardium There is no pericardial effusion. Ascites is present. Conclusion LVEF is >55%. Aortic valve is trileaflet. The aortic valve is mildly thickened. DICTATED BY: GORDON JACINTO MD DATE: 11/28/24 1236 ELECTRONICALLY SIGNED BY: GORDON JACINTO MD DATE: 11/28/24 7559 PATIENT: CHAN GARDINER MR#: [id number] : 1970 SEX: M AGE: 54 LOCATION: [facility] ORDER 9 STATUS: ADM IN REPORT#: [id number] SERVICE 4 REASON: abdominal distention ORDERING PHYSICIAN: MANOLO TENORIO MD PROCEDURE: ABD PEL WO - CT ABDOMEN/PELVIS W/O CONTRAST EXAM: CT Abdomen and Pelvis Without IV contrast CLINICAL HISTORY: abdominal distention TECHNIQUE: Axial computed tomography images of the abdomen and pelvis without intravenous contrast. CONTRAST: No IV contrast. COMPARISON: None provided. FINDINGS: LUNG BASES: Minimal right pleural effusion. Dependent atelectatic changes in the left lower lobe. No pleural effusions are seen. LIVER: Diffuse fatty infiltration of the liver. GALLBLADDER AND BILE DUCTS: The gallbladder appears within normal limits. No radioopaque gallstones are seen. No biliary ductal dilatation is evident. PANCREAS: Unremarkable. SPLEEN: Tiny calcified granuloma in the spleen. ADRENAL GLANDS: Unremarkable. KIDNEYS, URETERS, AND BLADDER: The kidneys appear within normal limits. There is no hydronephrosis or hydroureter. No urinary calculi are seen. STOMACH AND BOWEL: Unremarkable appearance of the stomach and bowel. No evidence of bowel obstruction. No evidence suggesting enteritis or colitis. APPENDIX: No evidence of acute appendicitis on CT examination. PERITONEUM: Large ascites. Diffuse omental and mesenteric fat stranding. No free air. LYMPH NODES: No lymphadenopathy is evident. REPRODUCTIVE: Unremarkable as visualized. VASCULATURE: No evidence of abdominal aortic aneurysm. Atheromatous wall calcifications in the abdominal aorta and its branches. BONES AND SOFT TISSUE: No aggressive appearing osseous lesion. No acute osseous pathology is evident. Mild multilevel degenerative changes in the visualized spine. Diffuse edematous changes in the abdominal wall and scrotal wall. There are a few phleboliths in the pelvis. IMPRESSION: 1. Large ascites with omental and mesenteric fat stranding. 2. Diffuse edematous changes in the abdominal and scrotal wall. 3. Minimal right pleural effusion. /[place] DICTATED BY: MARIANN HOWARD Jr., MD DATE: 11/28/24 1149 ELECTRONICALLY SIGNED BY: MARIANN HOWARD Jr., MD DATE: 11/28/24 1149 PATIENT: CHAN GARDINER MR#: [id number] : 1970 SEX: M AGE: 54 LOCATION: [facility] ORDER 3 STATUS: REG ER REPORT#: [id number] SERVICE REASON: sob ORDERING PHYSICIAN: LEATHA GUERRA MD PROCEDURE: CXR1VW - CHEST 1VW EXAM: CR Chest, 1 View. CLINICAL HISTORY: sob COMPARISON: None provided. FINDINGS: LUNGS: There is no mass, infiltrate, or acute pulmonary abnormality. PLEURAL SPACES: No evidence of pleural effusion or pneumothorax. MEDIASTINUM: The cardiomediastinal silhouette is within normal limits. BONES: No aggressive appearing osseous lesion seen. IMPRESSION: No acute cardiopulmonary pathology is evident. /[place] DICTATED BY: MARIANN HOWARD Jr., MD DATE: 11/28/24942 ELECTRONICALLY SIGNED BY: MARIANN HOWARD Jr., MD DATE: 11/28/24942 ASSESSMENT: Severe hyponatremia Suspected decompensated liver cirrhosis POA Alcohol use Fluid overload likely in setting of liver cirrhosis Ascites Anemia Intermittent hematochezia Hypertension Hypomagnesemia PLAN: Labs, diagnostic, radiologic exams reviewed and interpreted by myself and supervising physician. We have reviewed external records in detail Pending discharge disposition later today. From Nephrology standpoint, he may be discharged Follow up with Dr. Gallo in the renal clinic in 1-2 weeks Continue with fluid restriction Require close monitoring of renal function and electrolytes Order CBC, CMP, and electrolytes in am BiPAP as necessary, for respiratory distress Monitor blood pressure adjust medication doses as needed Avoid hypotensive episodes May use Dilaudid 0.5 mg IV every 6 hours as needed for severe pain Monitor blood sugars Strict intake, output, and daily weight should be monitored Will continue to monitor renal function, anemia, electrolytes Treatment plan discussed with patient Questions were answered We have discussed with the other team physicians in detail about the care plan We will continue to monitor the patient closely ATTESTATION BY PHYSICIAN I have seen and examined the patient. I reviewed the documentation, medical decision making, and treatment plan as noted by the mid-level provider above. I agree with the findings and plan of care. HARJINDER CORTÉS MD, [employer] Dec 08, 2024 12:36
--- NOTE | 2024-12-08 13:50 | NUR ---
ATTEMPTED TO CALL REPORT TO [facility], LEFT ON HOLD FOR SEVERAL MINUTES AND CALL DROPPED
--- NOTE | 2024-12-08 14:15 | NUR ---
GAVE REPORT TO JAY WASHINGTON @ [facility], WILL SEND FACILITY VAN FOR MATERIAL ATTENDANT
--- NOTE | 2024-12-08 15:36 | NUR ---
PROJECT MANAGEMENT MANAGER HERE WITH W/C FOR HEMATOLOGIST. DISCHARGE PACKET PROVIDED AND PT LEFT WITH MIDLINE IN PLACE TO LEFT UPPER ARM
== END 2024-12-08 15:42 | DRG 432 ==
LOC: EDH 07:02 → EDHIP 09:05 → 2CH 11:08 → 4DH 12-01 11:30 → 1MS 12-06 09:33
PROVIDERS: ADMIT Internal Medicine; ATTEND Internal Medicine
PROC: 0W9G3ZZ Drainage of Peritoneal Cavity, Percutaneous Approach (ICD-10-PCS; principal; 2024-11-28)
PROC: 0DB78ZX Excision of Stomach, Pylorus, Via Natural or Artificial Opening Endoscopic, Diagnostic (ICD-10-PCS; 2024-11-30)
PROC: 0DBP8ZX Excision of Rectum, Via Natural or Artificial Opening Endoscopic, Diagnostic (ICD-10-PCS; 2024-12-01)
DX: K70.31 Alcoholic cirrhosis of liver with ascites (principal); K29.01 Acute gastritis with bleeding; D62 Acute posthemorrhagic anemia; E87.1 Hypo-osmolality and hyponatremia; N17.9 Acute kidney failure, unspecified; K76.6 Portal hypertension; R65.10 Systemic inflammatory response syndrome (SIRS) of non-infectious origin without acute organ dysfunction; D64.9 Anemia, unspecified; E83.42 Hypomagnesemia; E87.70 Fluid overload, unspecified; N18.9 Chronic kidney disease, unspecified; I12.9 Hypertensive chronic kidney disease with stage 1 through stage 4 chronic kidney disease, or unspecified chronic kidney disease; F41.9 Anxiety disorder, unspecified; D72.829 Elevated white blood cell count, unspecified; K31.89 Other diseases of stomach and duodenum; K76.0 Fatty (change of) liver, not elsewhere classified; K82.8 Other specified diseases of gallbladder; R62.7 Adult failure to thrive; Z68.29 Body mass index [BMI] 29.0-29.9, adult; D12.8 Benign neoplasm of rectum
CPT/HCPCS: 36415; 36556; 43239; 45385; 49083; 71045; 74176; 76705; 80048; 80053; 80074; 80076; 80305; 81003; 82042; 82105; 82140; 82150; 83036; 83540; 83550; 83690; 83735; 83930; 83935; 84145; 84157; 84300; 84443; 84484; 85025; 85027; 85610; 85730; 86038; 86140; 86215; 86235; 86850; 86900; 86901; 87071; 87205; 88108; 88305; 88312; 89051; 93005; 93306; 93356; 99291; A4606; C1729; C1894; G0378; J0696; J2405; J2470; J2704; J3411; J3475; J3480; J7030; P9046; A4215; A4221; A4222; A4223; A4620; A4663; C1750; J3490

== ENCOUNTER 2025-01-03 14:08 | Emergency (ER) | payer OTHER ==
[~2025-01-03] VITALS: Ht 160 cm; Wt 70.3 kg
[~2025-01-03 14:08] MED LIST: ACET-66 PO; CARV3.12 PO; CLOT15CR23 TP; FURO40TA5 PO; GLYCOLAX PO; LACT-441 PO; LACT20PA7 PO; MIDO10TA3 PO; MULT-412 PO; NA P133E22 RC; OMEP20CA12 PO; ONDA22I PO; POTA20LI52 PO; SIME80TA12 PO; SPIR100T5 PO; THIA100T91 PO
--- NOTE | 2025-01-03 14:43 | ERN ---
General Chief Complaint: Multiple Complaints Stated Complaint: MULTIPLE COMPLAINTS Time Seen by MD: 14:13 Source: patient History of Present Illness Initial Comments PATIENT IS A 54-YEAR-OLD GENTLEMAN COMING IN COMPLAINING OF ABDOMINAL DISTENTION. PATIENT STATES HE HAS A HISTORY OF LIVER CIRRHOSIS WAS RECENTLY EVALUATED AND HAS A PARACENTESIS PERFORMED DUE TO ABDOMINAL DISTENTION. Allergies: Coded Allergies: NSAIDS (Non-Steroidal Anti-Inflamma (Unverified Allergy, Intermediate, 06/09/24) aspirin (Unverified Allergy, Intermediate, 06/09/24) ibuprofen (Unverified Allergy, Intermediate, 06/09/24) Home Meds Active Scripts Lactulose (Lactulose) 20 Gram Packet, 20 GM PO TID for 30 Days, #30 PKT Prov:TING LOU MD 12/31/24 Midodrine HCl (Midodrine HCl) 10 Mg Tablet, 1.5 TAB PO TID for 30 Days, #90 TAB 0 Refills Prov:TING LOU MD 12/21/24 Spironolactone (Spironolactone) 100 Mg Tablet, 1 TAB PO DAILY for 30 Days, #30 TAB 0 Refills Prov:TING LOU MD 12/21/24 Furosemide (Furosemide) 40 Mg Tablet, 1 TAB PO DAILY for 30 Days, #30 TAB 0 Refills Prov:TING LOU MD 12/21/24 Lactulose (Lactulose) 10 Gram/15 Ml Solution, 30 ML PO BID for constipation, #500 ML 0 Refills Prov:TING LOU MD 12/21/24 Reported Medications Acetaminophen (Acetaminophen) 500 Mg Tablet, 1 TAB PO Q6HPRN PRN for pain or fever for 15 Days, #60 TAB 0 Refills 12/15/24 Potassium Chloride (Potassium Chloride) 20 Meq/15 Ml Liquid, 15 ML PO BID for low potassium for 30 Days, #473 ML 0 Refills 12/15/24 [glycolax] No Conflict Check, 17 GM PO for constipation 12/15/24 Ondansetron HCl (Zofran) 4 Mg/2 Ml Inj, 4 MG PO q6 for nausea/vomiting, ML 12/15/24 Na Phos,M-B/Na Phos,Di-Ba (Fleet Enema) 19 Gram-7 Gram/118 Ml Enema, 133 ML RC q24 for constipation, ENEMA 12/15/24 Clotrimazole (Clotrimazole) 1 % Cream..g., 1 APPL TP DAILY for toenails for 7 Days, #15 GM 0 Refills apply to affected area(s) 12/15/24 Omeprazole (Omeprazole) 20 Mg Capsule.dr, 1 CAP PO DAILY for 30 Days, #30 CAP 0 Refills 12/15/24 Thiamine HCl (Vitamin B-1) 100 Mg Tablet, 1 TAB PO DAILY for 30 Days, #30 TAB 0 Refills 12/15/24 Multivitamin with Minerals (Daily Vitamin Formula-Minerals) 1 Each Tablet, 1 TAB PO DAILY for 30 Days, #30 TAB 0 Refills 12/15/24 Simethicone (Simethicone) 80 Mg Tab.chew, 1 TAB PO TID PRN for prn for 6 Days, #20 TAB 0 Refills 12/15/24 Carvedilol (Carvedilol) 3.125 Mg Tablet, 1 TAB PO BID for 30 Days, #60 TAB 0 Refills 12/15/24 Past Medical History Past Medical History: Hypertension, Other Medical History Other: LIVER CIRRHOSIS Past Surgical History: None Family History Family History: Negative Social History Social History: ETOH ROS Dictation CONSTITUTIONAL: NO CHILLS, NO FEVER, NO WEAKNESS, NO DIAPHORESIS, NO MALAISE. HEAD/FACE: NO SIGNS OF TRAUMA. EENT: NO EYE PAIN, NO BLURRED VISION, NO TEARING, NO DOUBLE VISION, NO EAR PAIN, NO EAR DISCHARGE, NO NOSE PAIN, NO NASAL CONGESTION, NO THROAT PAIN, NO THROAT SWELLING, NO MOUTH PAIN. RESPIRATORY: NO COUGH, NO ORTHOPNEA, SOB, NO STRIDOR, NO WHEEZING. CARDIOVASCULAR: NO CHEST PAIN, NO EDEMA, NO PALPITATIONS, NO SYNCOPE. GASTROINTESTINAL/ABDOMINAL: NO ABDOMINAL PAIN, NO CONSTIPATION, NO DIARRHEA, NO NAUSEA, NO VOMITING. GENITOURINARY: NO ABNORMAL DISCHARGE, NO DYSURIA, NO FREQUENT URINATION, NO HEMATURIA. NO COMPLAINTS OF PAIN IN THE GENITALS. MUSCULOSKELETAL: NO BACK PAIN, NO GOUT, NO JOINT PAIN, NO JOINT SWELLING, NO MUSCLE PAIN, NO MUSCLE STIFFNESS, NO NECK PAIN. INTEGUMENTARY: NO CHANGE IN COLOR, NO CHANGE IN HAIR/NAILS, NO DRYNESS, NO LESION, NO LUMPS, NO RASH. NEUROLOGICAL/PSYCH: NO ANXIETY, NOT DEPRESSED, NO EMOTIONAL PROBLEM, NO HEADACHE, NO NUMBNESS, NO PRE-EXISTING DEFICIT, NO HISTORY OF SEIZURES, NO TREMORS, NO WEAKNESS. HEMATOLOGIC/LYMPHATIC: NOT ANEMIC, NO HISTORY OF BLOOD CLOTS, NO APPARENT BLEEDING, NO BRUISING, GLANDS NOT SWOLLEN. ALL SYSTEMS NEGATIVE, EXCEPT NOTED. Physical Exam Physical Exam Dictation VITAL SIGNS: REVIEWED. GENERAL APPEARANCE: ALERT, ORIENTED X3, NO ACUTE DISTRESS, OBESE. HEAD AND FACE: NON-TRAUMATIC. EYES: PERRL, PINK CONJUNCTIVAS, EYELID NO TRAUMA, ANTERIOR CHAMBER CLEAR. EARS: PINNAS INTACT AND NO SIGNS OF TRAUMA OR ERYTHEMA. EAR CANALS CLEAR AND NO DISCHARGE. TMS NO ERYTHEMA. NOSE: NO DISCHARGE, NO BLEEDING. OROPHARYNX: MOUTH NORMAL, TEETH NO CARIES, TONGUE PINK. PHARYNX CLEAR, NO ERYTHEMA. TONSILS NO EXUDATES, NO ABSCESSES NOTED. MUCOUS MEMBRANE MOIST. NECK: SUPPLE, NON-TENDER, NO THYROMEGALY, NO MASSES, NO JVD, NO BRUITS. BREAST: DEFERRED. CHEST: NO TENDERNESS, NO CREPITUS, NO PARADOXICAL MOVEMENT, NO RETRACTIONS. LUNGS: CLEAR, WELL-VENTILATED, SYMMETRIC, NO RALES, NO WHEEZING, NO RHONCHI, NO STRIDOR, GOOD BREATH SOUNDS BILATERALLY. HEART: REGULAR RATE, REGULAR RHYTHM, NO MURMUR, NO GALLOPS. VASCULAR: NO PERIPHERAL EDEMA. ABDOMEN: SOFT, POSITIVE BOWEL SOUNDS, DISTENDED, NO GUARDING, NONTENDER, NO REBOUND, NO MASSES NO HEPATOMEGALY, NO SPLENOMEGALY, NO BARRON'S SIGN, NO HERNIAS. RECTAL: DEFERRED. GENITAL: DEFERRED. NEUROLOGICAL: NORMAL SPEECH, GROSS MOTOR FUNCTION INTACT, GROSS SENSORY FUNCTION INTACT. MUSCULOSKELETAL: NECK NONTENDER, FULL RANGE OF MOTION, BACK NONTENDER, FULL RANGE OF MOTION. EXTREMITIES: NONTENDER, FULL RANGE OF MOTION. SKIN: COLOR PINK, DRY, NO TURGOR, NO RASH, NO LACERATIONS, NO ABRASIONS, NO CONTUSIONS. LYMPHATICS: DEFERRED. Results Laboratory and Microbiology Lab and Micro Result Laboratory Tests Test 01/03/25 14:38 White Blood Count 11.8 K/uL (4.8-10.8) H Red Blood Count 2.76 MIL/uL (4.50-6.20) L Hemoglobin 8.8 g/dL (14.0-18.0) L Hematocrit 27.3 % (42-54) L Mean Corpuscular Volume 98.9 fL (79-99) Mean Corpuscular Hemoglobin 31.9 pg (27.0-33.0) Mean Corpuscular Hemoglobin Concent 32.2 g/dL (32.0-36.0) Red Cell Distribution Width 22.8 % (11.0-15.5) H Platelet Count 105 K/uL (130-400) L Mean Platelet Volume 8.3 fL (7.5-10.5) Immature Granulocyte % (Auto) 0.7 % (0-1) Neutrophils (%) (Auto) 75.3 % (40.0-77.0) Lymphocytes (%) (Auto) 11.5 % (21.0-51.0) L Monocytes (%) (Auto) 10.6 % (3.0-13.0) Eosinophils (%) (Auto) 1.7 % (0.0-8.0) Basophils (%) (Auto) 0.2 % (0.0-5.0) Neutrophils # (Auto) 8.9 K/uL (1.8-7.7) H Lymphocytes # (Auto) 1.4 K/uL (1.0-4.8) Monocytes # (Auto) 1.3 K/uL (0.1-1.0) H Eosinophils # (Auto) 0.20 K/uL (0.00-0.70) Basophils # (Auto) 0.02 K/uL (0.00-0.20) Absolute Immature Granulocyte (auto 0.08 K/uL (0-1) Nucleated Red Blood Cells 0.0 % (0.0-0.19) Prothrombin Time 15.1 SEC (9.6-11.6) H Prothromb Time International Ratio 1.48 (0.85-1.15) H Sodium Level 138 mmol/L (136-145) Potassium Level 4.1 mmol/L (3.5-5.1) Chloride Level 106 mmol/L (101-111) Carbon Dioxide Level 28 mmol/L (21-32) Blood Urea Nitrogen 8 mg/dL (7-18) Creatinine 0.6 mg/dL (0.5-1.3) Glomerular Filtration Rate Calc 116 mL/min (>90) Random Glucose 147 mg/dL (70-105) H Total Calcium 7.4 mg/dL (8.5-10.1) L Labs Reviewed?: Yes MDM MDM: DIFFERENTIAL DIAGNOSIS: Status post paracentesis, liver cirrhosis, RATIONALE: TESTS CONSIDERED AND ORDERED SECONDARY TO SHARED DECISION MAKING INCLUDE: PREVIOUS OUTSIDE RECORDS REVIEWED: OLD ER VISITS. RISK OF COMPLICATION AND/OR MORBIDITY OR MORTALITY OF PATIENT MANAGEMENT: NONE MEDICATIONS-PER MEDICATION RECONCILIATION NEED FOR HOSPITALIZATION: PATIENT DOES NOT MEET CRITERIA FOR HOSPITALIZATION. NEED FOR EMERGENCY MAJOR/MINOR SURGERY: NO Patient is a 54-year-old male coming in complaining of abdominal distention. Per patient he does has a history of liver cirrhosis. He was sent over from his PCP due to abdominal distention in his shortness of breath. Patient received a paracentesis via IR and received albumin as well. Patient will be discharged in stable condition with a diagnosis of status post paracentesis. ED Course Orders Procedure Category Date Status Time Cbc With Differential LAB 01/03/25 Complete 14:28 Basic Metabolic Panel LAB 01/03/25 Complete 14:28 Prothrombin Time With LAB 01/03/25 Complete INR 14:28 Us Abdominal US 01/03/25 Taken Paracentesis Ir 14:28 Albumin Human 25% PHA 01/03/25 Complete ([place]) 16:09 Current Medications Medications (Trade) Dose Ordered Sig/Ronak Route PRN Reason Start Time Stop Time Status Last Admin Dose Admin Albumin Human 200 ml @ As Directed STK-MED ONCE IV 01/03/25 16:09 01/03/25 16:09 DC 01/03/25 17:04 Vital Signs Date Time Temp Pulse Resp B/P (MAP) Pulse Ox O2 Delivery O2 Flow Rate FiO2 01/03/25 14:29 99.3 122 18 133/79 96 Room Air* 0 21 01/03/25 14:17 98.2 122 20 151/89 93 Room Air 0 DX & DISP Disposition: Discharge Departure Impression: Primary Impression: Alcoholic cirrhosis of liver with ascites Additional Impression: Status post abdominal paracentesis Condition: Stable Additional Instructions: FOLLOW-UP WITH PRIMARY CARE PROVIDER IN 1 TO 2 DAYS. TAKE MEDICATIONS DIRECTED HERE IN THE EMERGENCY ROOM. OKAY TO CONTINUE HOME MEDICATIONS UNLESS OTHERWISE DISCUSSED DURING YOUR VISIT IN THE EMERGENCY ROOM TODAY. RETURN TO YOUR NEAREST EMERGENCY ROOM IF SYMPTOMS WORSEN OR IF THERE IS NO IMPROVEMENT. CALL 911 IF YOU NEED IMMEDIATE ASSISTANCE. TAKE TYLENOL NCUR-SOV-CQUGHXZ NEEDED AND IF NO CONTRAINDICATIONS ARE PRESENT. INCREASE ORAL HYDRATION. A WOUND CULTURE OR URINE CULTURE WAS ORDERED HERE IN THE EMERGENCY ROOM DEPARTMENT PLEASE FOLLOW-UP WITH PRIMARY CARE PROVIDER AND ADVISE THEM TO GET REPORTS FROM OUR FACILITY. IF YOU HAD ANY SAYDA WRAP/SPLINTS THAT WERE APPLIED HERE, PLEASE DO NOT REMOVE THEM UNTIL YOU SEE YOUR PRIMARY CARE OR SPECIALTY. Referrals: Referrals: JOLLY BOOGIE MD (PCP) Time of Disposition: 17:20 LEATHA GUERRA MD Jan 03, 2025 14:43
[2025-01-03 14:50] LABS: IMMATURE GRANULOCYTE ABSOLUTE 0.08 K/uL (0-1); NUCLEATED RED BLOOD CELLS 0.0 % (0.0-0.19); PLATELET COUNT (AUTO) 105 K/uL (130-400); RED BLOOD CELL COUNT(AUTO) 2.76 MIL/uL (4.50-6.20); RED CELL DISTRIBUTION WIDTH 22.8 % (11.0-15.5); WHITE BLOOD COUNT (AUTO) 11.8 K/uL (4.8-10.8)
[2025-01-03 15:01] LABS: CREATININE 0.6 mg/dL (0.5-1.3); GLOMERULAR FILTR. RATE CALC 116.0 mL/min (>90); GLUCOSE,RANDOM 147.0 mg/dL (70-105); SODIUM SERUM 138.0 mmol/L (136-145); UREA NITROGEN, BLOOD 8.0 mg/dL (7-18)
[2025-01-03 15:04] LABS: INR 1.48 (0.85-1.15)
--- NOTE | 2025-01-03 15:36 | NUR ---
CONSENT FOR PARACENTESIS DONE
--- NOTE | 2025-01-03 16:14 | NUR ---
TRANSFERRED TO IR FOR PARACENTESIS
[2025-01-03] MEDS: ALBUMIN HUMAN 25% 200 ML IV ONE (17:04)
--- NOTE | 2025-01-03 17:15 | NUR ---
U/S GD PARACENTESIS PROCEDURE PERFORMED BY DR Cait MOLINA. PUNCTURE SITE LLQ AND PATIENT TOLERATED PROCEDURE WELL. TOTAL REMOVED 7.5 LITERS OF BLOOD TINGED FLUID. END OF PROCEDURE AT 1455. CATHETER REMOVED AND DRESSING APPLIED. NO BLEEDING NOTED. REPORT GIVEN TO FELIX JOSHI AND PATIENT TRANSPORTED TO ED 15 VIA STRETCHER AT 1715. AAO X3 WITH NO C/O PAIN. ALBUMIN 25% 50 GRAMS IV GIVEN DURING PROCEDURE.
[2025-01-03 17:37] VITALS: BP 107/62; PULSE 94; RESP 18; TEMP 98.3; O2SAT 96
--- NOTE | 2025-01-04 09:32 | HMCIMG ---
US ABDOMINAL PARACENTESIS IR REASON: ABD DISTENTION Document today by Dr. Janett Darden MD PGY-[address] Yoder TECHNIQUE: Paracentesis was performed with ultrasound guidance. The puncture site was selected in the Right lower quadrant and overlying skin prepped and draped in a sterile fashion. 1% Xylocaine infiltration was performed. Catheter was placed in the fluid using trocar technique. 7.5 were removed. Blood tinged from previous TIPS Fluid sample was submitted for laboratory evaluation. The patient showed no evidence of complication during the procedure. Patient tolerated the procedure well IMPRESSION: 1. Ultrasound-guided paracentesis.
== END 2025-01-03 17:41 | disposition home or self-care (01) ==
LOC: EDH 14:08
DX: K70.31 Alcoholic cirrhosis of liver with ascites (principal); I10 Essential (primary) hypertension; Z88.6 Allergy status to analgesic agent; Z79.899 Other long term (current) drug therapy
CPT/HCPCS: 49083; 99285; 96365; 80048; 85025; 85610; 36415; P9046; C1729

== ENCOUNTER 2025-01-10 11:58 | Emergency (ER) | payer OTHER ==
[~2025-01-10] VITALS: Ht 162.6 cm; Wt 70.3 kg
[2025-01-10 12:00] VITALS: BP 137/90; PULSE 121; RESP 16; TEMP 97.9
--- NOTE | 2025-01-10 12:44 | ERN ---
ED Note History of Present Illness Stated Complaint: NEEDS REFILL ON LACTULOSE Chief Complaint: Medication Refill Time Seen by MD: 12:09 Dictation: PATIENT IS A 54-YEAR-OLD CIRRHOTIC MALE COMING IN TODAY FROM HOME WITH COMPLAINTS OF NEEDING A REFILL FOR HIS LACTULOSE. HE WAS RECENTLY HOSPITALIZED AT [facility] AND STATES WHEN HE WAS DISCHARGED THEY HAVE GIVEN HIM A REFILL FOR A MONTH. HE HAS NOT RUN OUT BUT HE IS RUNNING LOW AND WOULD LIKE A REFILL. HE STATES HE HAS TALKED TO HIS DOCTOR AT [facility] READ DISCHARGE PAPERWORK AND SAID BECAUSE THE DOCTOR AT SAID THEY WOULD GIVE HIM A MONTH'S SUPPLY THAT HE NEEDS TO GO BACK TO THE EMERGENCY ROOM FOR FURTHER EVALUATION AND A REFILL THEY DID NOT PROVIDE THE REFILL AT THEIR OFFICE. HE HAS NO OTHER COMPLAINTS OF VOICE Allergies: Coded Allergies: NSAIDS (Non-Steroidal Anti-Inflamma (Unverified Allergy, Intermediate, 06/09/24) aspirin (Unverified Allergy, Intermediate, 06/09/24) ibuprofen (Unverified Allergy, Intermediate, 06/09/24) Home Meds Active Scripts Lactulose (Lactulose) 20 Gram Packet, 20 GM PO TID for 30 Days, #30 PKT Prov:TING LOU MD 12/31/24 Midodrine HCl (Midodrine HCl) 10 Mg Tablet, 1.5 TAB PO TID for 30 Days, #90 TAB 0 Refills Prov:TING LOU MD 12/21/24 Spironolactone (Spironolactone) 100 Mg Tablet, 1 TAB PO DAILY for 30 Days, #30 TAB 0 Refills Prov:TING LOU MD 12/21/24 Furosemide (Furosemide) 40 Mg Tablet, 1 TAB PO DAILY for 30 Days, #30 TAB 0 Refills Prov:TING LOU MD 12/21/24 Lactulose (Lactulose) 10 Gram/15 Ml Solution, 30 ML PO BID for constipation, #500 ML 0 Refills Prov:TING LOU MD 12/21/24 Reported Medications Acetaminophen (Acetaminophen) 500 Mg Tablet, 1 TAB PO Q6HPRN PRN for pain or fever for 15 Days, #60 TAB 0 Refills 12/15/24 Potassium Chloride (Potassium Chloride) 20 Meq/15 Ml Liquid, 15 ML PO BID for low potassium for 30 Days, #473 ML 0 Refills 12/15/24 [glycolax] No Conflict Check, 17 GM PO for constipation 12/15/24 Ondansetron HCl (Zofran) 4 Mg/2 Ml Inj, 4 MG PO q6 for nausea/vomiting, ML 12/15/24 Na Phos,M-B/Na Phos,Di-Ba (Fleet Enema) 19 Gram-7 Gram/118 Ml Enema, 133 ML RC q24 for constipation, ENEMA 12/15/24 Clotrimazole (Clotrimazole) 1 % Cream..g., 1 APPL TP DAILY for toenails for 7 Days, #15 GM 0 Refills apply to affected area(s) 12/15/24 Omeprazole (Omeprazole) 20 Mg Capsule.dr, 1 CAP PO DAILY for 30 Days, #30 CAP 0 Refills 12/15/24 Thiamine HCl (Vitamin B-1) 100 Mg Tablet, 1 TAB PO DAILY for 30 Days, #30 TAB 0 Refills 12/15/24 Multivitamin with Minerals (Daily Vitamin Formula-Minerals) 1 Each Tablet, 1 TAB PO DAILY for 30 Days, #30 TAB 0 Refills 12/15/24 Simethicone (Simethicone) 80 Mg Tab.chew, 1 TAB PO TID PRN for prn for 6 Days, #20 TAB 0 Refills 12/15/24 Carvedilol (Carvedilol) 3.125 Mg Tablet, 1 TAB PO BID for 30 Days, #60 TAB 0 Refills 12/15/24 Past Medical History Past Medical History: Hypertension, Other Additional Past Medical Hx: LIVER CIRRHOSIS Surgical History: None Family History: Negative Social History: ETOH RN Note Reviewed/Agreed w/PFSH: Yes Review of System Dictation CONSTITUTIONAL: Negative except for HPI HEAD/FACE: Negative except for HPI EENT: Negative except for HPI RESPIRATORY: Negative except for HPI GASTROINTESTINAL/ABDOMINAL: Negative except for HPI GENITOURINARY: Negative except for HPI MUSCULOSKELETAL: Negative except for HPI INTEGUMENTARY: Negative except for HPI NEUROLOGICAL/PSYCH: Negative except for HPI HEMATOLOGIC/LYMPHATIC: Negative except for HPI All Systems Negative, Except as noted above. 13 point review of systems assessed and all negative except for above. Initial Vital Sign VS Vital Signs Date Time Temp Pulse Resp B/P (MAP) Pulse Ox O2 Delivery O2 Flow Rate FiO2 01/10/25 12:00 97.9 121 16 137/90 99 Room Air 0 Physical Exam Dictation Vital Signs reviewed General Appearance: Alert, oriented x 3, no acute distress, well developed, nourished. No complaints of voice Head and Face: non-traumatic. Eyes: PERRL, pink conjunctivas, eyelid no trauma, anterior chamber with arcus senilis. Ears: Pinnas intact and no signs of trauma or erythema ear canals clear and no discharge TM no erythema Nose: No discharge, no bleeding. Oropharynx: Mouth normal, tongue pink, pharynx clear,no erythema, tonsils no exudates, no abscesses noted, mucous membrane moist Neck: Supple, non-tender, no thyromegaly, no masses, no JVD, no bruits Breast:Deferred Chest:No tenderness, no crepitus, no paradoxical movement, no retractions Lungs:Clear, well-ventilated, symmetric, no rales, no wheezing, no rhonchi, no stridor, good breath sounds bilaterally Heart: Regular rate, regular rhythm, no murmur, no gallops Vascular: no peripheral edema, Abdomen: Soft, positive bowel sounds, nondistended, no guarding, nontender, no rebound, no masses no hepatomegaly, no splenomegaly, no Kruger's sign, no hernias. Rectal: Deferred Genital: Deferred Neurological: Normal speech, motor function intact, sensory function intact Musculoskeletal: Neck nontender, full range of motion, back nontender, full range of motion, Extremities: nontender, full range of motion Skin: Color pink, dry, no turgor, no rash, no lacerations, no abrasions, no contusions. Lymphatic: Deferred Results (Laboratory/Radiology) Labs Reviewed?: Yes ED Course ED Course Vital Signs Date Time Temp Pulse Resp B/P (MAP) Pulse Ox O2 Delivery O2 Flow Rate FiO2 01/10/25 12:00 97.9 121 16 137/90 99 Room Air 0 1435/patient requesting refill of his lactulose 30 mL b.i.d.. Review of medical record s demonstrates he takes his twice a day We will give patient a refill have him follow back up with his doctor at [facility]. Medical Decision Making MDM Medical discharge making based on HPI and review of medical records. Patient requesting lactulose 30 mL p.o. b.i.d. for his cirrhosis He was given a refill with one refill. No labs or imaging DX & DISP Disposition: Discharge Departure Impression: Primary Impression: Encounter for medication refill Additional Impression: History of cirrhosis of liver Condition: Stable Scripts Lactulose (Lactulose) 10 Gram/15 Ml Solution 30 ML PO BID for constipation, #500 ML 1 Refill Prov: RADHA MEDINA 01/10/25 Additional Instructions: Follow-up with primary care provider in 1 to 2 days. Take medications as directed here in the emergency room. Okay to continue home medications unless otherwise discussed during your visit in the emergency room today. Return to your nearest emergency room if symptoms worsen or if there is no improvement. Call 911 if you need immediate assistance. Take Tylenol or Motrin [id number] as needed and if no contraindications are present. Increase oral hydration. A wound culture or urine culture was ordered here in the emergency room department please follow-up with primary care provider and advise them to get repeat ports from our facility. If you had any Dennis wrap/splints that were applied here, please do not remove them until you see your primary care or specialty. Take lactulose twice a day as directed. Follow up with your doctor at [facility] for any further concerns or problems. Referrals: JOLLY BOOGIE MD (PCP) Time of Disposition: 14:36 I have reviewed the case, and I agree with, Diagnosis and Plan RADHA MEDINA Jan 10, 2025 12:44
[2025-01-10] MEDS ORDERED: LACT-441 PO (14:37)
--- NOTE | 2025-01-10 14:43 | NUR ---
PT SENT BY [facility] FOR REFILL MEDICATIONS. PT STATES HE IS ONLY HERE FOR HIS MEDICATION, HE RAN OUT.
== END 2025-01-10 14:53 | disposition home or self-care (01) ==
LOC: EDH 11:58
DX: K74.60 Unspecified cirrhosis of liver (principal); I10 Essential (primary) hypertension; Z76.0 Encounter for issue of repeat prescription; Z79.899 Other long term (current) drug therapy; Z88.6 Allergy status to analgesic agent
CPT/HCPCS: 99282

== ENCOUNTER 2025-01-11 13:41 | Emergency (ER) | payer OTHER ==
[~2025-01-11] VITALS: Ht 165.1 cm; Wt 70.3 kg
[2025-01-11 13:44] VITALS: BP 161/101; PULSE 115; RESP 18; TEMP 97.9
--- NOTE | 2025-01-11 13:51 | ERN ---
ED Note History of Present Illness Stated Complaint: ABDOMINAL DISTENTION PARACENTESIS Chief Complaint: Other Problems Time Seen by MD: 13:42 Dictation: PATIENT IS A 54-YEAR-OLD MALE WELL KNOWN TO [facility] [place] WITH COMPLAINTS OF ABDOMINAL DISTENTION WITH A ASCITES. HE STATES HE HAD BEEN HAVING NAUSEA VOMITING SINCE YESTERDAY. IN REQUESTING PARACENTESIS. NO CHEST PAIN NO BACK PAIN. Allergies: Coded Allergies: NSAIDS (Non-Steroidal Anti-Inflamma (Unverified Allergy, Intermediate, 06/09/24) aspirin (Unverified Allergy, Intermediate, 06/09/24) ibuprofen (Unverified Allergy, Intermediate, 06/09/24) Home Meds Active Scripts Lactulose (Lactulose) 10 Gram/15 Ml Solution, 30 ML PO BID for constipation, #500 ML 1 Refill Prov:RADHA MEDINA C IRON WORKER 01/10/25 Lactulose (Lactulose) 20 Gram Packet, 20 GM PO TID for 30 Days, #30 PKT Prov:TING LOU MD 12/31/24 Midodrine HCl (Midodrine HCl) 10 Mg Tablet, 1.5 TAB PO TID for 30 Days, #90 TAB 0 Refills Prov:TING LOU MD 12/21/24 Spironolactone (Spironolactone) 100 Mg Tablet, 1 TAB PO DAILY for 30 Days, #30 TAB 0 Refills Prov:TING LOU MD 12/21/24 Furosemide (Furosemide) 40 Mg Tablet, 1 TAB PO DAILY for 30 Days, #30 TAB 0 Refills Prov:TING LOU MD 12/21/24 Lactulose (Lactulose) 10 Gram/15 Ml Solution, 30 ML PO BID for constipation, #500 ML 0 Refills Prov:TING LOU MD 12/21/24 Reported Medications Acetaminophen (Acetaminophen) 500 Mg Tablet, 1 TAB PO Q6HPRN PRN for pain or fever for 15 Days, #60 TAB 0 Refills 12/15/24 Potassium Chloride (Potassium Chloride) 20 Meq/15 Ml Liquid, 15 ML PO BID for low potassium for 30 Days, #473 ML 0 Refills 12/15/24 [glycolax] No Conflict Check, 17 GM PO for constipation 12/15/24 Ondansetron HCl (Zofran) 4 Mg/2 Ml Inj, 4 MG PO q6 for nausea/vomiting, ML 12/15/24 Na Phos,M-B/Na Phos,Di-Ba (Fleet Enema) 19 Gram-7 Gram/118 Ml Enema, 133 ML RC q24 for constipation, ENEMA 12/15/24 Clotrimazole (Clotrimazole) 1 % Cream..g., 1 APPL TP DAILY for toenails for 7 Days, #15 GM 0 Refills apply to affected area(s) 12/15/24 Omeprazole (Omeprazole) 20 Mg Capsule.dr, 1 CAP PO DAILY for 30 Days, #30 CAP 0 Refills 12/15/24 Thiamine HCl (Vitamin B-1) 100 Mg Tablet, 1 TAB PO DAILY for 30 Days, #30 TAB 0 Refills 12/15/24 Multivitamin with Minerals (Daily Vitamin Formula-Minerals) 1 Each Tablet, 1 TAB PO DAILY for 30 Days, #30 TAB 0 Refills 12/15/24 Simethicone (Simethicone) 80 Mg Tab.chew, 1 TAB PO TID PRN for prn for 6 Days, #20 TAB 0 Refills 12/15/24 Carvedilol (Carvedilol) 3.125 Mg Tablet, 1 TAB PO BID for 30 Days, #60 TAB 0 Refills 12/15/24 Past Medical History Past Medical History: Hypertension, Other Additional Past Medical Hx: LIVER CIRRHOSIS Surgical History: None Family History: Negative Social History: ETOH RN Note Reviewed/Agreed w/PFSH: Yes Review of System Dictation CONSTITUTIONAL: NEGATIVE EXCEPT FOR HPI HEAD/FACE: NEGATIVE EXCEPT FOR HPI EENT: NEGATIVE EXCEPT FOR HPI RESPIRATORY: NEGATIVE EXCEPT FOR HPI SHORT OF BREATH GASTROINTESTINAL/ABDOMINAL: NEGATIVE EXCEPT FOR HPI ASCITES WITH DISTENTION GENITOURINARY: NEGATIVE EXCEPT FOR HPI MUSCULOSKELETAL: NEGATIVE EXCEPT FOR HPI INTEGUMENTARY: NEGATIVE EXCEPT FOR HPI NEUROLOGICAL/PSYCH: NEGATIVE EXCEPT FOR HPI HEMATOLOGIC/LYMPHATIC: NEGATIVE EXCEPT FOR HPI ALL SYSTEMS NEGATIVE, EXCEPT NOTED ABOVE. 13 POINT REVIEW OF SYSTEMS ASSESSED AND ALL NEGATIVE EXCEPT FOR ABOVE. Initial Vital Sign VS Vital Signs Date Time Temp Pulse Resp B/P (MAP) Pulse Ox O2 Delivery O2 Flow Rate FiO2 01/11/25 13:44 97.9 115 18 161/101 98 Room Air 0 Physical Exam Dictation VITAL SIGNS REVIEWED GENERAL APPEARANCE: ALERT, ORIENTED X 3, MODERATE ACUTE DISTRESS, WELL DEVELOPED, NOURISHED. HEAD AND FACE: NON-TRAUMATIC. EYES: PERRL, PINK CONJUNCTIVAS, EYELID NO TRAUMA, ANTERIOR CHAMBER WITH ARCUS SENILIS. EARS: PINNAS INTACT AND NO SIGNS OF TRAUMA OR ERYTHEMA EAR CANALS CLEAR AND NO DISCHARGE TM NO ERYTHEMA NOSE: NO DISCHARGE, NO BLEEDING. OROPHARYNX: MOUTH NORMAL, TONGUE PINK, PHARYNX CLEAR,NO ERYTHEMA, TONSILS NO EXUDATES, NO ABSCESSES NOTED, MUCOUS MEMBRANE MOIST NECK: SUPPLE, NON-TENDER, NO THYROMEGALY, NO MASSES, NO JVD, NO BRUITS BREAST:DEFERRED CHEST:NO TENDERNESS, NO CREPITUS, NO PARADOXICAL MOVEMENT, NO RETRACTIONS LUNGS:CLEAR, WELL-VENTILATED, SYMMETRIC, NO RALES, NO WHEEZING, NO RHONCHI, NO STRIDOR, GOOD BREATH SOUNDS BILATERALLY HEART: TACHYCARDIC, NO MURMUR, NO GALLOPS VASCULAR: NO PERIPHERAL EDEMA, ABDOMEN: SOFT, POSITIVE TENSE ASCITES WITH POSITIVE WAVE SIGN RECTAL: DEFERRED GENITAL: DEFERRED NEUROLOGICAL: NORMAL SPEECH, MOTOR FUNCTION INTACT, SENSORY FUNCTION INTACT MUSCULOSKELETAL: NECK NONTENDER, FULL RANGE OF MOTION, BACK NONTENDER, FULL RANGE OF MOTION, EXTREMITIES: NONTENDER, FULL RANGE OF MOTION SKIN: COLOR PINK, DRY, NO TURGOR, NO RASH, NO LACERATIONS, NO ABRASIONS, NO CONTUSIONS. LYMPHATIC: DEFERRED Results (Laboratory/Radiology) Laboratory/Radiology Laboratory Tests Test 01/11/25 14:14 White Blood Count 13.9 K/uL (4.8-10.8) H Red Blood Count 3.16 MIL/uL (4.50-6.20) L Hemoglobin 10.5 g/dL (14.0-18.0) L Hematocrit 31.4 % (42-54) L Mean Corpuscular Volume 99.4 fL (79-99) H Mean Corpuscular Hemoglobin 33.2 pg (27.0-33.0) H Mean Corpuscular Hemoglobin Concent 33.4 g/dL (32.0-36.0) Red Cell Distribution Width 22.7 % (11.0-15.5) H Platelet Count 165 K/uL (130-400) Mean Platelet Volume 8.4 fL (7.5-10.5) Immature Granulocyte % (Auto) 0.5 % (0-1) Neutrophils (%) (Auto) 89.3 % (40.0-77.0) H Lymphocytes (%) (Auto) 4.8 % (21.0-51.0) L Monocytes (%) (Auto) 4.9 % (3.0-13.0) Eosinophils (%) (Auto) 0.4 % (0.0-8.0) Basophils (%) (Auto) 0.1 % (0.0-5.0) Neutrophils # (Auto) 12.4 K/uL (1.8-7.7) H Lymphocytes # (Auto) 0.7 K/uL (1.0-4.8) L Monocytes # (Auto) 0.7 K/uL (0.1-1.0) Eosinophils # (Auto) 0.06 K/uL (0.00-0.70) Basophils # (Auto) 0.02 K/uL (0.00-0.20) Absolute Immature Granulocyte (auto 0.07 K/uL (0-1) Nucleated Red Blood Cells 0.0 % (0.0-0.19) White Cell Morphology Comment See comments Red Blood Cell Morphology See comments Prothrombin Time 14.6 SEC (9.6-11.6) H Prothromb Time International Ratio 1.43 (0.85-1.15) H Activated Partial Thromboplast Time 31.9 SEC (26.3-35.5) Sodium Level 128 mmol/L (136-145) L Potassium Level 4.4 mmol/L (3.5-5.1) Chloride Level 96 mmol/L (101-111) L Carbon Dioxide Level 26 mmol/L (21-32) Blood Urea Nitrogen 16 mg/dL (7-18) Creatinine 0.9 mg/dL (0.5-1.3) Glomerular Filtration Rate Calc 103 mL/min (>90) Random Glucose 145 mg/dL (70-105) H Total Calcium 7.2 mg/dL (8.5-10.1) L Total Bilirubin 4.6 mg/dL (0.2-1.0) H Aspartate Amino Transf (AST/SGOT) 57 U/L (10-37) H Alanine Aminotransferase (ALT/SGPT) 21 U/L (12-78) Alkaline Phosphatase 399 U/L (50-136) H Troponin I High Sensitivity 5 ng/L (4-75) Total Protein 6.7 g/dL (6.0-8.3) Albumin 1.8 g/dL (3.5-5.0) L Lipase 31 U/L (16-77) Labs Reviewed?: Yes EKG Comment: 1404/EKG SINUS TACHYCARDIA/HEART RATE 147/AXIS NORMAL NONSPECIFIC CHANGES ANTERIOR LEADS ED Course ED Course Orders Procedure Category Date Status Time Pt And Ptt LAB 01/11/25 Complete 13:49 Cbc With Differential LAB 01/11/25 Complete 13:49 Comprehensive LAB 01/11/25 Complete Metabolic Panel 13:49 Troponin I High LAB 01/11/25 Complete Sensitivity 13:49 Urinalysis Profile LAB 01/11/25 Logged 13:49 12 Lead Ekg Tracing- EKG 01/11/25 Complete Technical 13:49 Ondansetron 4mg Inj PHA 01/11/25 Complete (Zofran 4mg Inj) 14:00 Lipase LAB 01/11/25 Complete 13:49 0.9% Nacl 500ml PHA 01/11/25 Complete Iv.Soln (Ns 500ml 14:00 Blood Cult RAMESH 01/11/25 Logged 16:09 Lactic Acid LAB 01/11/25 Logged 16:09 Current Medications Medications (Trade) Dose Ordered Sig/Ronak Route PRN Reason Start Time Stop Time Status Last Admin Dose Admin Ondansetron HCl (zoFRAN 4MG INJ) 4 mg ONCE ONCE IVP 01/11/25 14:00 01/11/25 14:01 DC Sodium Chloride 500 ml @ 0 mls/hr ONCE ONCE IV 01/11/25 14:00 01/11/25 14:01 DC Vital Signs Date Time Temp Pulse Resp B/P (MAP) Pulse Ox O2 Delivery O2 Flow Rate FiO2 01/11/25 13:44 97.9 115 18 161/101 98 Room Air 0 Medical Decision Making [facility] 1700/PATIENT WAS CALLED MULTIPLE TIMES IN THE WAITING ROOM AND DID NOT RESPOND. BUSINESS OFFICE DID NOT KNOW WITH A IT STAYED OR GONE. SEARCHED OUTSIDE AND THERE WAS NO PATIENT DISCHARGED AGAINST MEDICAL DX & DISP Disposition: AMA Departure Impression: Primary Impression: Tense ascites Additional Impressions: Electrolyte imbalance, Cirrhosis, Leukocytosis Condition: Stable Referrals: JOLLY BOOGIE MD (PCP) I have reviewed the case, and I agree with, Diagnosis and Plan RADHA MEDINA C IRON WORKER Jan 11, 2025 13:51
[2025-01-11] MEDS ORDERED: 0.9% NACL 500ML IV.SOLN 500 ML IV ONE (14:00)
--- NOTE | 2025-01-11 14:06 | EKG ---
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
[2025-01-11 14:24] LABS: IMMATURE GRANULOCYTE ABSOLUTE 0.07 K/uL (0-1); NUCLEATED RED BLOOD CELLS 0.0 % (0.0-0.19); PLATELET COUNT (AUTO) 165 K/uL (130-400); RED BLOOD CELL COUNT(AUTO) 3.16 MIL/uL (4.50-6.20); RED CELL DISTRIBUTION WIDTH 22.7 % (11.0-15.5); WHITE BLOOD COUNT (AUTO) 13.9 K/uL (4.8-10.8)
[2025-01-11 14:36] LABS: CREATININE 0.9 mg/dL (0.5-1.3); GLOMERULAR FILTR. RATE CALC 103.0 mL/min (>90); GLUCOSE,RANDOM 145.0 mg/dL (70-105); SODIUM SERUM 128.0 mmol/L (136-145); UREA NITROGEN, BLOOD 16.0 mg/dL (7-18)
[2025-01-11 14:37] LABS: INR 1.43 (0.85-1.15)
[2025-01-11 14:40] LABS: ASPARTATE AMINOTRANSFERASE 57.0 U/L (10-37); TOTAL PROTEIN, SERUM 6.7 g/dL (6.0-8.3)
--- NOTE | 2025-01-11 16:19 | NUR ---
WAS CALLED TO BE PLACED IN ED BED 13, BUT NO RESPONSE. WILL ATTMPT AGAIN SHORTLY.
--- NOTE | 2025-01-11 16:54 | NUR ---
SECOND ATTEMPT TO CALL PT FROM [facility], BUT NO RESPONSE. RADHA MARQUEZ MADE AWARE
== END 2025-01-11 17:08 | disposition left against medical advice (07) ==
LOC: EDH 13:41
DX: R18.8 Other ascites (principal); K74.60 Unspecified cirrhosis of liver; E87.8 Other disorders of electrolyte and fluid balance, not elsewhere classified; D72.829 Elevated white blood cell count, unspecified; I10 Essential (primary) hypertension; Z79.899 Other long term (current) drug therapy; Z88.6 Allergy status to analgesic agent
CPT/HCPCS: 36415; 80053; 83690; 84484; 85025; 85610; 85730; 93005; 99284

== ENCOUNTER 2025-01-13 09:12 | Inpatient (IN) | payer OTHER ==
[~2025-01-13] VITALS: Ht 162.6 cm; Wt 65.1 kg
[2025-01-13 09:37] LABS: IMMATURE GRANULOCYTE ABSOLUTE 0.05 K/uL (0-1); NUCLEATED RED BLOOD CELLS 0.0 % (0.0-0.19); PLATELET COUNT (AUTO) 157 K/uL (130-400); RED BLOOD CELL COUNT(AUTO) 3.03 MIL/uL (4.50-6.20); RED CELL DISTRIBUTION WIDTH 22.5 % (11.0-15.5); WHITE BLOOD COUNT (AUTO) 11.2 K/uL (4.8-10.8)
[2025-01-13 09:58] LABS: ASPARTATE AMINOTRANSFERASE 56.0 U/L (10-37); CREATININE 0.8 mg/dL (0.5-1.3); GLOMERULAR FILTR. RATE CALC 106.0 mL/min (>90); GLUCOSE,RANDOM 92.0 mg/dL (70-105); SODIUM SERUM 125.0 mmol/L (136-145); TOTAL PROTEIN, SERUM 6.0 g/dL (6.0-8.3); UREA NITROGEN, BLOOD 16.0 mg/dL (7-18)
[2025-01-13 09:59] LABS: INR 1.41 (0.85-1.15)
--- NOTE | 2025-01-13 11:04 | ERN ---
ED Note History of Present Illness Stated Complaint: HERE FOR PARACENTHESIS, ASCITES Chief Complaint: Other Problems Time Seen by MD: 09:17 Dictation: 54-year-old male presenting to the emergency department for paracentesis patient reports liver failure recent paracentesis on Friday however he has been having vomiting and not feeling well generalized weakness. Allergies: Coded Allergies: NSAIDS (Non-Steroidal Anti-Inflamma (Unverified Allergy, Intermediate, 06/09/24) aspirin (Unverified Allergy, Intermediate, 06/09/24) ibuprofen (Unverified Allergy, Intermediate, 06/09/24) Home Meds Active Scripts Lactulose (Lactulose) 10 Gram/15 Ml Solution, 30 ML PO BID for constipation, #500 ML 1 Refill Prov:RADHA MEDINA ENGINEERING EQUIPMENT OPERATOR 01/10/25 Lactulose (Lactulose) 20 Gram Packet, 20 GM PO TID for 30 Days, #30 PKT Prov:TING LOU MD 12/31/24 Midodrine HCl (Midodrine HCl) 10 Mg Tablet, 1.5 TAB PO TID for 30 Days, #90 TAB 0 Refills Prov:TING LOU MD 12/21/24 Spironolactone (Spironolactone) 100 Mg Tablet, 1 TAB PO DAILY for 30 Days, #30 TAB 0 Refills Prov:TING LOU MD 12/21/24 Furosemide (Furosemide) 40 Mg Tablet, 1 TAB PO DAILY for 30 Days, #30 TAB 0 Refills Prov:TING LOU MD 12/21/24 Lactulose (Lactulose) 10 Gram/15 Ml Solution, 30 ML PO BID for constipation, #500 ML 0 Refills Prov:TING LOU MD 12/21/24 Reported Medications Acetaminophen (Acetaminophen) 500 Mg Tablet, 1 TAB PO Q6HPRN PRN for pain or fever for 15 Days, #60 TAB 0 Refills 12/15/24 Potassium Chloride (Potassium Chloride) 20 Meq/15 Ml Liquid, 15 ML PO BID for low potassium for 30 Days, #473 ML 0 Refills 12/15/24 [glycolax] No Conflict Check, 17 GM PO for constipation 12/15/24 Ondansetron HCl (Zofran) 4 Mg/2 Ml Inj, 4 MG PO q6 for nausea/vomiting, ML 12/15/24 Na Phos,M-B/Na Phos,Di-Ba (Fleet Enema) 19 Gram-7 Gram/118 Ml Enema, 133 ML RC q24 for constipation, ENEMA 12/15/24 Clotrimazole (Clotrimazole) 1 % Cream..g., 1 APPL TP DAILY for toenails for 7 Days, #15 GM 0 Refills apply to affected area(s) 12/15/24 Omeprazole (Omeprazole) 20 Mg Capsule.dr, 1 CAP PO DAILY for 30 Days, #30 CAP 0 Refills 12/15/24 Thiamine HCl (Vitamin B-1) 100 Mg Tablet, 1 TAB PO DAILY for 30 Days, #30 TAB 0 Refills 12/15/24 Multivitamin with Minerals (Daily Vitamin Formula-Minerals) 1 Each Tablet, 1 TAB PO DAILY for 30 Days, #30 TAB 0 Refills 12/15/24 Simethicone (Simethicone) 80 Mg Tab.chew, 1 TAB PO TID PRN for prn for 6 Days, #20 TAB 0 Refills 12/15/24 Carvedilol (Carvedilol) 3.125 Mg Tablet, 1 TAB PO BID for 30 Days, #60 TAB 0 Refills 12/15/24 Past Medical History Past Medical History: Hypertension, Other Additional Past Medical Hx: LIVER CIRRHOSIS Surgical History: None Family History: Negative Social History: ETOH Review of System Dictation Constitutional: Negative for fever,chills, and weight loss Eyes: Negative for injury, pain,redness, and discharge ENT: Negative for injury,pain or swelling Cardiovascular: Negative for chest pain, palpitations, and edema Respiratory: Negative for shortness of breath, cough, and wheezing, Abdomen/GI: Per HPI Back: Negative for injury and pain : Negative for injury, bleeding and discharge MS/Extremity: Negative for injury and deformity Skin: Negative for rash, and discoloration Neuro: Per HPI Initial Vital Sign VS Vital Signs Date Time Temp Pulse Resp B/P (MAP) Pulse Ox O2 Delivery O2 Flow Rate FiO2 01/13/25 09:13 97.7 124 18 137/94 97 Room Air 01/13/25 11:48 0 21 Physical Exam Dictation General: awake, alert, appears ill Head/Face: Normocephalic, atraumatic Eyes: PERRL, EOMI, vision at baseline ENT: oral cavity clear, TMs clear, no signs of infection Neck: Trachea midline, supple, no nuchal rigidity Cardiovascular: Tachycardic normal S1/S2, No MRGs, no JVD Respiratory: CTAB, no respiratory distress, No rales or wheezes Abdomen: Soft, non-tender, non-distended, normal bowel sounds, no guarding or rebound. Skin: Warm, dry, jaundice MS/Extremity: Pulses equal, no cyanosis, neurovascular intact, FROM Neuro: COAx4, GCS 15, strength 5/5, CN 2-12 intact, normal cerebellar exam, normal gait, Psych: Normal behavior, mood, and affect normal Results (Laboratory/Radiology) Laboratory/Radiology Laboratory Tests Test 01/13/25 09:27 01/13/25 09:56 White Blood Count 11.2 K/uL (4.8-10.8) H Red Blood Count 3.03 MIL/uL (4.50-6.20) L Hemoglobin 10.1 g/dL (14.0-18.0) L Hematocrit 29.8 % (42-54) L Mean Corpuscular Volume 98.3 fL (79-99) Mean Corpuscular Hemoglobin 33.3 pg (27.0-33.0) H Mean Corpuscular Hemoglobin Concent 33.9 g/dL (32.0-36.0) Red Cell Distribution Width 22.5 % (11.0-15.5) H Platelet Count 157 K/uL (130-400) Mean Platelet Volume 8.0 fL (7.5-10.5) Immature Granulocyte % (Auto) 0.4 % (0-1) Neutrophils (%) (Auto) 76.4 % (40.0-77.0) Lymphocytes (%) (Auto) 14.8 % (21.0-51.0) L Monocytes (%) (Auto) 7.6 % (3.0-13.0) Eosinophils (%) (Auto) 0.7 % (0.0-8.0) Basophils (%) (Auto) 0.1 % (0.0-5.0) Neutrophils # (Auto) 8.5 K/uL (1.8-7.7) H Lymphocytes # (Auto) 1.7 K/uL (1.0-4.8) Monocytes # (Auto) 0.9 K/uL (0.1-1.0) Eosinophils # (Auto) 0.08 K/uL (0.00-0.70) Basophils # (Auto) 0.01 K/uL (0.00-0.20) Absolute Immature Granulocyte (auto 0.05 K/uL (0-1) Nucleated Red Blood Cells 0.0 % (0.0-0.19) Erythrocyte Sedimentation Rate 30 MM/HR (0-20) H Prothrombin Time 14.4 SEC (9.6-11.6) H Prothromb Time International Ratio 1.41 (0.85-1.15) H Activated Partial Thromboplast Time 33.9 SEC (26.3-35.5) Sodium Level 125 mmol/L (136-145) L Potassium Level 4.2 mmol/L (3.5-5.1) Chloride Level 95 mmol/L (101-111) L Carbon Dioxide Level 28 mmol/L (21-32) Blood Urea Nitrogen 16 mg/dL (7-18) Creatinine 0.8 mg/dL (0.5-1.3) Glomerular Filtration Rate Calc 106 mL/min (>90) Random Glucose 92 mg/dL (70-105) Total Calcium 7.2 mg/dL (8.5-10.1) L Total Bilirubin 3.1 mg/dL (0.2-1.0) H Direct Bilirubin 1.5 mg/dL (0.0-0.3) H Aspartate Amino Transf (AST/SGOT) 56 U/L (10-37) H Alanine Aminotransferase (ALT/SGPT) 18 U/L (12-78) Alkaline Phosphatase 335 U/L (50-136) H Total Protein 6.0 g/dL (6.0-8.3) Albumin 1.6 g/dL (3.5-5.0) L Lactic Acid Level 1.9 mmol/L (0.8-2.5) Ammonia < 10 umol/L (11-32) L Lactate Dehydrogenase 346 U/L (81-234) H Troponin I High Sensitivity 5 ng/L (4-75) C-Reactive Protein, Quantitative 41.80 mg/L (0.5-3.0) H Lipase 41 U/L (16-77) Labs Reviewed?: Yes EKG Comment: Heart rate 117 sinus tachycardia, normal intervals, no STEMI ED Course ED Course Orders Procedure Category Date Status Time Basic Metabolic Panel LAB 01/13/25 Complete 09:18 Cbc With Differential LAB 01/13/25 Complete 09:18 Hepatic Function Panel LAB 01/13/25 Complete 09:18 Pt And Ptt LAB 01/13/25 Complete 09:18 12 Lead Ekg Tracing- EKG 01/13/25 Logged Technical 09:18 Ammonia LAB 01/13/25 Complete 09:39 Blood Cult RAMESH 01/13/25 In Process 09:39 Lactic Acid LAB 01/13/25 Complete 09:39 Lipase LAB 01/13/25 Complete 09:39 Troponin I High LAB 01/13/25 Complete Sensitivity 09:39 12 Lead Ekg Tracing- EKG 01/13/25 Logged Technical 09:39 Chest 1vw RAD 01/13/25 Resulted 09:39 Ct Abd/Pel Wo Con CT 01/13/25 Resulted Renal/Appy 09:47 Ceftriaxone 2gm Vial PHA 01/13/25 Complete (Rocephin 2gm Inj) 09:47 Ondansetron 4mg Inj PHA 01/13/25 Complete (Zofran 4mg Inj) 09:47 Admit Orders ADM 01/13/25 Transmitted 13:01 Us Abdominal US 01/13/25 Logged Paracentesis Ir 13:02 Body Fluid Cell Count LAB 01/13/25 Logged 13:02 Body Fluid Cult W/ RAMESH 01/13/25 Logged Gram Stain 13:02 Albumin Body Fluid LAB 01/13/25 Logged 13:02 Ldh,Body Fluid LAB 01/13/25 Logged 13:02 Daily Fluid Intake CPOE 01/13/25 Transmitted Restriction 13:04 Albumin (Human) 25% PHA 01/13/25 In Process (Albumin (Human) 25% 13:30 Ceftriaxone 2gm Vial PHA 01/14/25 In Process (Rocephin 2gm Inj) 09:00 Erythrocyte Sed Rate LAB 01/13/25 Complete 13:05 Crp Quantitative LAB 01/13/25 In Process 13:05 Procalcitonin LAB 01/13/25 In Process 13:05 Lactate Dehydrogenase LAB 01/13/25 In Process 13:05 Pulmonology Consult CONPHYSVC 01/13/25 Transmitted 13:06 Nephrology Consult CONPHYSVC 01/13/25 Transmitted 13:06 Type And Screen BBK 01/13/25 In Process 13:06 Us Abdominal Complete US 01/13/25 Logged 13:06 Folic Acid/Vitamin B PHA 01/14/25 In Process Comp W-C (Nephrovit 09:00 Acetaminophen 325 Tab PHA 01/13/25 In Process (Tylenol 325mg Tab 13:30 Ondansetron 4mg Inj PHA 01/13/25 In Process (Zofran 4mg Inj) 13:30 Ipratropium 0.5 PHA 01/13/25 In Process Mg/2.5 Ml Inh 13:30 Urine Sodium,Random LAB 01/13/25 Logged 13:08 Urine Creatinine LAB 01/13/25 Logged Random 13:08 Osmolality Serum LAB 01/13/25 In Process 13:08 Osmolality Urine LAB 01/13/25 Logged 13:08 Cortisol Am LAB 01/14/25 Verified 07:00 Cbc With Differential LAB 01/14/25 Verified 04:00 Comprehensive LAB 01/14/25 Verified Metabolic Panel 04:00 Magnesium LAB 01/14/25 Verified 04:00 Pulse Ox(Continuous) RT 01/13/25 Transmitted 13:08 Thiamine Hcl (Vitamin PHA 01/14/25 In Process B-1) 09:00 Pantoprazole 40mg Inj PHA 01/13/25 In Process (Protonix 40mg Inj 13:30 Vital Signs(Adult CPOE 01/13/25 Transmitted Hospitalist) 13:16 Daily Weights CPOE 01/13/25 Transmitted 13:16 I&O Q Shift CPOE 01/13/25 Transmitted 13:16 Condition: CPOE 01/13/25 Transmitted 13:16 Telemetry Monitoring CPOE 01/13/25 Transmitted 13:16 Activity: Br W/Brp CPOE 01/13/25 Transmitted With Assist 13:16 Nothing By Mouth DIET 01/13/25 Transmitted Lunch Apply Scds CPOE 01/13/25 Transmitted 13:16 Basic Metabolic Panel LAB 01/13/25 Logged 19:00 Thyroid Stimulating LAB 01/13/25 In Process Hormone 09:56 Urinalysis Profile LAB 01/13/25 Logged 13:21 Lactulose 20 Gm/30 Ml PHA 01/13/25 In Process Udcup (Constulose 21:00 Midodrine Hcl 5 Mg PHA 01/13/25 In Process Tablet (Proamatine 5 14:00 Current Medications Medications (Trade) Dose Ordered Sig/Ronak Route PRN Reason Start Time Stop Time Status Last Admin Dose Admin Acetaminophen (TYLenol 325MG TAB) 650 mg Q6H PRN PO MILD PAIN (1-3) 01/13/25 13:30 02/12/25 13:29 Albumin Human 50 ml @ 0 mls/hr Q6H IV 01/13/25 13:30 01/15/25 13:30 01/13/25 13:35 Ceftriaxone Sodium (Rocephin 2gm Inj) 2 gm DAILY IVPB 01/14/25 09:00 01/24/25 08:59 Ceftriaxone Sodium (Rocephin 2gm Inj) 2 gm ONCE STAT IVPB 01/13/25 09:47 01/13/25 09:49 DC 01/13/25 12:01 Ipratropium [place] (AtrovENT UD) 0.5 mg Q6H PRN IH SHORTNESS OF BREATH 01/13/25 13:30 02/12/25 13:29 Lactulose (Constulose 20gm/ 30ml Udcup) 20 gm BID PO 01/13/25 21:00 02/12/25 20:59 Midodrine (PROAMatine 5 MG TABLET) 5 mg TID PO 01/13/25 14:00 02/12/25 13:59 01/13/25 13:35 Ondansetron HCl (zoFRAN 4MG INJ) 4 mg ONCE STAT IVP 01/13/25 09:47 01/13/25 09:49 DC 01/13/25 12:01 Ondansetron HCl (zoFRAN 4MG INJ) 4 mg Q6H PRN IVP NAUSEA/VOMITING 01/13/25 13:30 02/12/25 13:29 Pantoprazole Sodium (PROTonix 40MG INJ) 40 mg Q24H IVP 01/13/25 13:30 02/12/25 13:29 01/13/25 13:35 Thiamine HCl (Vitamin B-1) 100 mg DAILY IVP 01/14/25 09:00 02/13/25 08:59 Vitamin B Complex/ Vit C/Folic Acid (Nephrovite Tablet) 1 cap DAILY PO 01/14/25 09:00 02/13/25 08:59 Vital Signs Date Time Temp Pulse Resp B/P (MAP) Pulse Ox O2 Delivery O2 Flow Rate FiO2 01/13/25 13:00 115 16 113/58 97 Room Air* 0 21 01/13/25 11:48 117 16 132/84 100 Room Air* 0 21 01/13/25 09:13 97.7 124 18 137/94 97 Room Air Medical Decision Making MDM MDM: Differential diagnosis: Rationale: Tests considered and ordered secondary to shared decision making include: labs, ECG and radiology Previous outside records reviewed: Old ER visits. Risk of complication and/or morbidity or mortality of patient management: None Medications-Per medication reconciliation Need for hospitalization: Patient does meet criteria for hospitalization. Need for emergency major/minor surgery: No There are no social concerns with this patient. Prescription drug management Prescriptions will include symptomatic care Patient's prior external medical records from other ER visits were reviewed by me as indicated. Prior testing and results from previous visits were reviewed. Prior tests were taken into account with medical decision making and resource utilization, independent historian/historians were used to obtain complete medical history. I independently interpreted the test that were performed, results were reviewed by me and considered findings on radiology if ordered. Medical management and examination interpretation discussions were had by me with other qualified healthcare professionals as indicated for the patient's care. 54-year-old male with ascites cirrhosis tachycardia appears ill started on broad-spectrum antibiotics to rule out bacteremia and meeting further care and evaluation. Critical Care Note Comment(s) Total critical care time was 33 minutes. Excluding time for procedures. Management of critically ill patient with concern for acute decompensation. Management included interpretation of laboratory values and imaging, hemodynamics, time for consultation with consultants and admitting physician. DX & DISP Disposition: Inpatient Departure Impression: Primary Impression: Tachycardia Additional Impression: History of cirrhosis of liver Condition: Stable Referrals: JOLLY BOOGIE MD (PCP) RACHEL MAZARIEGOS MD Jan 13, 2025 11:04
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
--- NOTE | 2025-01-13 12:05 | HMCIMG ---
EXAM: CT Abdomen and Pelvis Without IV Contrast CLINICAL HISTORY: Vomiting and ascites. TECHNIQUE: Axial computed tomography images of the abdomen and pelvis acquired without intravenous contrast. Dose optimization techniques applied. Total DLP: 408 mGy???cm. CONTRAST: No IV contrast administered. COMPARISON: Ultrasound Abdomen (US/SD) dated 12/29/2024, which demonstrated a large heterogeneous right hepatic lobe lesion (10.8 ??? 2.9 ??? 9.4 cm) superior to the TIPS tract, absent shunt flow suggesting possible TIPS occlusion or thrombosis, reduced portal vein flow, new ascites, and right pleural effusion with basal lung collapse. FINDINGS: LUNG BASES: Gross loculated right pleural collection measuring up to 7.0 cm in maximum thickness, causing compression atelectasis of the adjacent right lower lobe. No left-sided effusion or consolidation. LIVER: Cirrhotic morphology with coarse, nodular surface contour. An ill-defined, faintly heterogeneous hypodense lesion is noted in the right lobe of the liver along the lateral margin of the TIPS shunt, measuring approximately 5.0 ??? 4.8 cm. This lesion may represent a residual or evolving hematoma or post-procedural collection; however, further characterization requires contrast-enhanced imaging. No other discrete enhancing lesion is seen within the limitations of the non-contrast study. TIPS SHUNT: TIPS shunt visualized between the right portal and hepatic veins. Assessment of shunt patency is limited on non-contrast imaging. No displacement or gross thrombosis evident. GALLBLADDER AND BILE DUCTS: Gallbladder normal in size and wall thickness. No cholelithiasis or biliary dilatation. PANCREAS: Normal in size and attenuation. SPLEEN: Normal in size and homogeneous attenuation. ADRENAL GLANDS: Unremarkable. KIDNEYS, URETERS, AND BLADDER: Normal cortical thickness and attenuation. No hydronephrosis or calculi. Urinary bladder normal. STOMACH AND BOWEL: Non-dilated bowel loops with preserved mural thickness. No obstruction or perforation. APPENDIX: Normal in caliber. No periappendiceal inflammation. PERITONEUM: Gross ascites throughout the abdomen and pelvis. No free air. LYMPH NODES: No abnormally enlarged mesenteric or retroperitoneal lymph nodes. REPRODUCTIVE ORGANS: Within normal limits as visualized. VASCULATURE: Major abdominal vessels are patent. No aneurysm or thrombosis. BONES AND SOFT TISSUES: No acute osseous or soft tissue abnormality.IMPRESSION: 1. Ill-defined, hypodense right hepatic lobe lesion (5.0 x 4.8 cm) along the lateral margin of the TIPS shunt, reduced in size from prior ultrasound. Indeterminate on non-contrast study; contrast-enhanced CT or MRI recommended for further characterization. 2. Large loculated right pleural effusion (7.0 cm maximum thickness) with compression atelectasis of the adjacent right lower lobe. 3. Cirrhotic liver morphology with gross ascites throughout the abdomen and pelvis. 4. TIPS shunt in situ between right portal and hepatic veins; patency indeterminate without contrast. 5. No other acute intra-abdominal or pelvic abnormalities detected within the limitations of non-contrast imaging. 6. Compared with the prior abdominal ultrasound dated 12/29/2024, the previously described heterogeneous right hepatic lesion (10.8 ??? 2.9 ??? 9.4 cm) has reduced in size to approximately 5.0 ??? 4.8 cm, now appearing ill-defined and hypodense. Persistent ascites and new organization of the right pleural fluid into a loculated collection (7 cm) with lower lobe atelectasis are noted. The TIPS shunt remains in position; however, shunt patency cannot be reassessed without contrast or Doppler evaluation. No new hepatic or extrahepatic lesion identified. /[place]
[2025-01-13 13:32] LABS: LACTATE DEHYDROGENASE 346.0 U/L (81-234)
[2025-01-13] MEDS: ALBUMIN (HUMAN) 25% 50 ML IV SCH (13:35)
--- NOTE | 2025-01-13 13:47 | HP ---
[facility] HISTORY AND PHYSICAL Date of Service: Jan 13, 2025 Time of Service: 13:36 HISTORY OF PRESENT ILLNESS: Date of service: 01/13/2025, patient was seen in ER room 16 54-year-old malen history of alcoholic liver cirrhosis, history of portal hypertensive gastropathy, recurrent ascites, recent history of tips procedure by Dr. Yoder in [facility] on 12/2024, chronic anemia, history of hyponatremia, presented to the ER for further evaluation of significant abdominal distention with associated nausea and vomiting. Patient reports that he has been having significant abdominal distention since discharge from the hospital on 12/31/2024., patient was previously hospitalized in [facility] [place] on 12/15/2024 and had an extended hospital stay if where he underwent tips placement for recurrent large volume ascites. Patient states that he has been trying to be compliant with his home medications. He remains on lactulose, midodrine at home. Unsure if patient has had compliance with oral diuretics as outpatient. Patient did not bring any of his home medications today to the ER. Also reports having significant abdominal pain due to progressive distention of the abdomen, currently rates the pain as 8/10 in severity. Oral intake has been poor due to abdominal distention. Patient reports that he gets short of breath with minimal activity. Denies any cough. Denies any pleurisy. Denies any recent history of hematochezia or melena. On presentation to the hospital, patient was noted to be afebrile and tachycardic with heart rate in the 110s-120s, blood pressure of 137/94 and saturating greater than 97% on room air. [place] [address], hemoglobin 10.1, platelet count of 429394. BMP showed sodium 125, potassium 4.2, BUN of 16, creatinine of 0.8, lactic acid of 1.9, AST of 56, ALT of 18, alkaline phosphatase of 335, albumin of 1.6. Patient underwent further evaluation with chest x-ray which showed findings of l arge right-sided pleural effusion with possible loculation and compressive atelectasis of the right lower lobe of the lung. CT of the abdomen pelvis without contrast showed large volume ascites with large loculated right-sided pleural effusion with tips shunt noted. Patient did have subscapular hematoma noted on CT abdomen pelvis from 12/30/2024 after tips procedure. Per radiology, the ill-defined collection looks reduced in size from prior imaging. REVIEW OF SYSTEMS CONSTITUTIONAL: Denies fevers, chills, or night sweats. No unintentional weight loss reported. NEUROLOGICAL: Denies headache, amaurosis fugax, motor weakness, sensory deficit, vertigo/spinning sensation, gait abnormalities, or tremors. ENT: No hearing loss, otalgia, otorrhea, rhinitis, rhinorrhea, hoarseness, or sore throat. CARDIOVASCULAR: Denies any exertional angina, dyspnea on exertion, orthopnea, paroxysmal nocturnal dyspnea, palpitations, life-threatening arrhythmias, claudication. PULMONARY: Patient reports having shortness of breath with minimal activity SLEEP: Denies morning headaches, daytime somnolence or napping. Denies difficulty falling asleep, staying asleep, waking from sleep. Denies knowledge of snoring. GASTROINTESTINAL: Nausea, vomiting abdominal pain GENITOURINARY: Denies frequency, urgency, nocturia, hematuria or incontinence (Storage/Irritative symptoms.) Low urinary stream, straining to void, urinary intermittency or hesitancy, splitting of the voiding stream, terminal dribbling. ENDOCRINOLOGIC: Denies polyuria, polydipsia, polyphagia or heat/cold intolerances. HEMATOLOGIC: Denies thrombophilia/previous clots, or coagulopathy/bleeding disorders. ONCOLOGIC: Denies personal history of malignancy. DERMATOLOGIC: Patient reports having lower extremity edema bilateral PSYCHIATRIC: Denies any suicidal or homicidal ideation. Denies hallucinations. PAST MEDICAL HISTORY: History of alcoholic liver cirrhosis, history of portal gastropathy, history of hyponatremia, history of recurrent ascites PAST SURGICAL HISTORY: Previous history of multiple paracentesis recently, recent history of tips placement in [facility] on 12/2024 PAST SOCIAL HISTORY: Patient previously used to drink heavily, last drink was about three months ago, denies drinking currently, denies any active smoking or illicit drug use FAMILY HISTORY: Reports family history of liver disease in mother Allergies: NSAIDs Home medications: Patient did not bring list of any of his home medications, discussed with patient to try to obtain home medication list so it can be reconciled and updated Coded Allergies: NSAIDS (Non-Steroidal Anti-Inflamma (Unverified Allergy, Intermediate, 06/09/24) aspirin (Unverified Allergy, Intermediate, 06/09/24) ibuprofen (Unverified Allergy, Intermediate, 06/09/24) PHYSICAL EXAM GENERAL APPEARANCE: The patient is awake, alert, and oriented, in no acute cardiopulmonary distress. NEUROLOGICAL: Cranial nerves II-XII grossly intact. Motor is 5/5 in bilateral upper and lower extremities proximal to distal. No sensory deficits. HEENT: Face is symmetric. Pupils are equal and reactive. Extraocular movements are intact. NECK: Supple. No JVD. No thyromegaly. No submental, submandibular, pre- /postauricular, occipital or supraclavicular lymphadenopathy. CHEST: Normal chest expansion. No Telemetry. LUNGS: Decreased breath sounds of the right lung base to the upper lung lance CARDIOVASCULAR: Regular. S1 and S2 normal. No appreciable rubs, murmurs or gallops. ABDOMEN: Abdomen is distended with fluid wave noted : Deferred. No [place]. EXTREMITIES: 2+ pitting edema noted of bilateral lower extremities. No clubbing. Good capillary refill. SKIN: No skin breakdown. Vital Sign (Last 24 Hours) 01/13/25 01/13/25 09:13 13:00 Temp 97.7 Pulse 115 Resp 16 B/P (MAP) 113/58 Pulse Ox 97 O2 Delivery Room Air* O2 Flow Rate 0 FiO2 21 LABS: Laboratory: Test 01/13/25 09:56 01/13/25 09:27 Range/Units Lactic Acid Level 1.9 0.8-2.5 mmol/L Ammonia < 10 L 11-32 umol/L Lactate Dehydrogenase 346 H 81-234 U/L Troponin I High Sensitivity 5 4-75 ng/L C-Reactive Protein, Quantitative 41.80 H 0.5-3.0 mg/L Lipase 41 16-77 U/L White Blood Count 11.2 H 4.8-10.8 K/uL Red Blood Count 3.03 L 4.50-6.20 MIL/uL Hemoglobin 10.1 L 14.0-18.0 g/dL Hematocrit 29.8 L 42-54 % Mean Corpuscular Volume 98.3 79-99 fL Mean Corpuscular Hemoglobin 33.3 H 27.0-33.0 pg Mean Corpuscular Hemoglobin Concent 33.9 32.0-36.0 g/dL Red Cell Distribution Width 22.5 H 11.0-15.5 % Platelet Count 157 130-400 K/uL Mean Platelet Volume 8.0 7.5-10.5 fL Immature Granulocyte % (Auto) 0.4 0-1 % Neutrophils (%) (Auto) 76.4 40.0-77.0 % Lymphocytes (%) (Auto) 14.8 L 21.0-51.0 % Monocytes (%) (Auto) 7.6 3.0-13.0 % Eosinophils (%) (Auto) 0.7 0.0-8.0 % Basophils (%) (Auto) 0.1 0.0-5.0 % Neutrophils # (Auto) 8.5 H 1.8-7.7 K/uL Lymphocytes # (Auto) 1.7 1.0-4.8 K/uL Monocytes # (Auto) 0.9 0.1-1.0 K/uL Eosinophils # (Auto) 0.08 0.00-0.70 K/uL Basophils # (Auto) 0.01 0.00-0.20 K/uL Absolute Immature Granulocyte (auto 0.05 0-1 K/uL Nucleated Red Blood Cells 0.0 0.0-0.19 % Erythrocyte Sedimentation Rate 30 H 0-20 MM/HR Prothrombin Time 14.4 H 9.6-11.6 SEC Prothromb Time International Ratio 1.41 H 0.85-1.15 Activated Partial Thromboplast Time 33.9 26.3-35.5 SEC Sodium Level 125 L 136-145 mmol/L Potassium Level 4.2 3.5-5.1 mmol/L Chloride Level 95 L 101-111 mmol/L Carbon Dioxide Level 28 21-32 mmol/L Blood Urea Nitrogen 16 7-18 mg/dL Creatinine 0.8 0.5-1.3 mg/dL Glomerular Filtration Rate Calc 106 >90 mL/min Random Glucose 92 70-105 mg/dL Total Calcium 7.2 L 8.5-10.1 mg/dL Total Bilirubin 3.1 H 0.2-1.0 mg/dL Direct Bilirubin 1.5 H 0.0-0.3 mg/dL Aspartate Amino Transf (AST/SGOT) 56 H 10-37 U/L Alanine Aminotransferase (ALT/SGPT) 18 12-78 U/L Alkaline Phosphatase 335 H 50-136 U/L Total Protein 6.0 6.0-8.3 g/dL Albumin 1.6 L 3.5-5.0 g/dL Current Medications Medications (Trade) Dose Ordered Sig/Ronak Route PRN Reason Start Time Stop Time Status Last Admin Dose Admin Acetaminophen (TYLenol 325MG TAB) 650 mg Q6H PRN PO MILD PAIN (1-3) 01/13/25 13:30 02/12/25 13:29 Albumin Human 50 ml @ 0 mls/hr Q6H IV 01/13/25 13:30 01/15/25 13:30 01/13/25 13:35 300 MLS/HR Ceftriaxone Sodium (Rocephin 2gm Inj) 2 gm DAILY IVPB 01/14/25 09:00 01/24/25 08:59 Ceftriaxone Sodium (Rocephin 2gm Inj) 2 gm ONCE STAT IVPB 01/13/25 09:47 01/13/25 09:49 DC 01/13/25 12:01 2 GM Ipratropium [place] (AtrovENT UD) 0.5 mg Q6H PRN IH SHORTNESS OF BREATH 01/13/25 13:30 02/12/25 13:29 Lactulose (Constulose 20gm/ 30ml Udcup) 20 gm BID PO 01/13/25 21:00 02/12/25 20:59 Midodrine (PROAMatine 5 MG TABLET) 5 mg TID PO 01/13/25 14:00 02/12/25 13:59 01/13/25 13:35 5 MG Ondansetron HCl (zoFRAN 4MG INJ) 4 mg ONCE STAT IVP 01/13/25 09:47 01/13/25 09:49 DC 01/13/25 12:01 4 MG Ondansetron HCl (zoFRAN 4MG INJ) 4 mg Q6H PRN IVP NAUSEA/VOMITING 01/13/25 13:30 02/12/25 13:29 Pantoprazole Sodium (PROTonix 40MG INJ) 40 mg Q24H IVP 01/13/25 13:30 02/12/25 13:29 01/13/25 13:35 40 MG Thiamine HCl (Vitamin B-1) 100 mg DAILY IVP 01/14/25 09:00 02/13/25 08:59 Vitamin B Complex/ Vit C/Folic Acid (Nephrovite Tablet) 1 cap DAILY PO 01/14/25 09:00 02/13/25 08:59 DIAGNOSTICS / RADIOLOGY: SERVICE [id number] REASON: vomiting and ascites ORDERING PHYSICIAN: RACHEL MAZARIEGOS MD PROCEDURE: ABD PELVWO - CT ABD/PEL WO CON RENAL/APPY EXAM: CT Abdomen and Pelvis Without IV Contrast CLINICAL HISTORY: Vomiting and ascites. TECHNIQUE: Axial computed tomography images of the abdomen and pelvis acquired without intravenous contrast. Dose optimization techniques applied. Total DLP: 408 mGy???cm. CONTRAST: No IV contrast administered. COMPARISON: Ultrasound Abdomen (US/SD) dated 12/29/2024, which demonstrated a large heterogeneous right hepatic lobe lesion (10.8 ??? 2.9 ??? 9.4 cm) superior to the TIPS tract, absent shunt flow suggesting possible TIPS occlusion or thrombosis, reduced portal vein flow, new ascites, and right pleural effusion with basal lung collapse. FINDINGS: LUNG BASES: Gross loculated right pleural collection measuring up to 7.0 cm in maximum thickness, causing compression atelectasis of the adjacent right lower lobe. No left-sided effusion or consolidation. LIVER: Cirrhotic morphology with coarse, nodular surface contour. An ill-defined, faintly heterogeneous hypodense lesion is noted in the right lobe of the liver along the lateral margin of the TIPS shunt, measuring approximately 5.0 ??? 4.8 cm. This lesion may represent a residual or evolving hematoma or post-procedural collection; however, further characterization requires contrast-enhanced imaging. No other discrete enhancing lesion is seen within the limitations of the non-contrast study. TIPS SHUNT: TIPS shunt visualized between the right portal and hepatic veins. Assessment of shunt patency is limited on non-contrast imaging. No displacement or gross thrombosis evident. GALLBLADDER AND BILE DUCTS: Gallbladder normal in size and wall thickness. No cholelithiasis or biliary dilatation. PANCREAS: Normal in size and attenuation. SPLEEN: Normal in size and homogeneous attenuation. ADRENAL GLANDS: Unremarkable. KIDNEYS, URETERS, AND BLADDER: Normal cortical thickness and attenuation. No hydronephrosis or calculi. Urinary bladder normal. STOMACH AND BOWEL: Non-dilated bowel loops with preserved mural thickness. No obstruction or perforation. APPENDIX: Normal in caliber. No periappendiceal inflammation. PERITONEUM: Gross ascites throughout the abdomen and pelvis. No free air. LYMPH NODES: No abnormally enlarged mesenteric or retroperitoneal lymph nodes. REPRODUCTIVE ORGANS: Within normal limits as visualized. VASCULATURE: Major abdominal vessels are patent. No aneurysm or thrombosis. BONES AND SOFT TISSUES: No acute osseous or soft tissue abnormality.IMPRESSION: 1. Ill-defined, hypodense right hepatic lobe lesion (5.0 x 4.8 cm) along the lateral margin of the TIPS shunt, reduced in size from prior ultrasound. Indeterminate on non-contrast study; contrast-enhanced CT or MRI recommended for further characterization. 2. Large loculated right pleural effusion (7.0 cm maximum thickness) with compression atelectasis of the adjacent right lower lobe. 3. Cirrhotic liver morphology with gross ascites throughout the abdomen and pelvis. 4. TIPS shunt in situ between right portal and hepatic veins; patency indeterminate without contrast. 5. No other acute intra-abdominal or pelvic abnormalities detected within the limitations of non-contrast imaging. 6. Compared with the prior abdominal ultrasound dated 12/29/2024, the previously described heterogeneous right hepatic lesion (10.8 ??? 2.9 ??? 9.4 cm) has reduced in size to approximately 5.0 ??? 4.8 cm, now appearing ill-defined and hypodense. Persistent ascites and new organization of the right pleural fluid into a loculated collection (7 cm) with lower lobe atelectasis are noted. The TIPS shunt remains in position; however, shunt patency cannot be reassessed without contrast or Doppler evaluation. No new hepatic or extrahepatic lesion identified. /[facility] SERVICE [id number] REASON: sob ORDERING PHYSICIAN: RACHEL MAZARIEGOS MD PROCEDURE: CXR1VW - CHEST 1VW EXAM: CR Chest, 1 View. CLINICAL HISTORY: sob COMPARISON: Radiograph dated December 18, 2024 Findings: AP view of the chest is submitted. Large right pleural effusion with suggestion of a loculated component. Subjacent airspace disease may reflect atelectasis and/or an infectious/inflammatory process. The left lung is clear. No pneumothorax. Heart size and pulmonary vessels are within normal limits. IMPRESSION: 1. Large right pleural effusion with possible loculation. 2. Right lower lobe airspace disease, potentially atelectasis or pneumonia. 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, POA Recent history of TIPS procedure for recurrent large volume ascites, POA Compressive right lung atelectasis from large right-sided pleural effusion, POA Acute on chronic hyponatremia, hypervolemic, POA Sinus tachycardia, POA History of portal hypertensive gastropathy, POA History of gastritis, POA Prior history of alcohol use, quit alcohol three months ago, POA Anemia, POA Coagulopathy, mild, secondary to underlying liver cirrhosis, POA History of subcapsular hematoma of the right subhepatic space noted on abdominal CT from 12/2024, from TIPS postprocedure, POA PLAN: Patient will be admitted to medical-surgical floor under telemetry monitoring We will request consultation with Interventional Radiology for diagnostic and therapeutic paracentesis, ascitic fluid cultures will be obtained We will start patient on scheduled IV albumin to reduce post paracentesis circulatory dysfunction and reduce the risk of HRS We will keep patient on IV ceftriaxone empirically We will hold diuretics today until patient undergoes large volume paracentesis Consultation with pulmonology will be requested for further evaluation of thoracentesis for loculated right-sided pleural effusion noted to be large in size, patient likely has a hepatic hydrothorax We will request consultation with Nephrology due to findings of progressive hyponatremia, patient will be placed on fluid restriction 1.5 L We will start diuretics tomorrow post paracentesis to reduce risk of hypotension and acute kidney injury Patient to continue with midodrine 5 mg t.i.d. Patient to continue with lactulose 20 g twice daily We will try to obtain home medication list and reconcile once available We will monitor closely for any signs of GI bleeding We will see how patient progresses in the next 48-72 hours Consultation with case management will be requested for assistance with discharge planning insulin We will obtain a abdominal ultrasound with Doppler to assess TIPS patency We will Keep patient on GI prophylaxis Protonix, DVT prophylaxis will be SCDs Date of service: 01/13/2025 Plan of care was discussed with patient at bedside, Prognosis: lola Urias MD Advanced Care Planning: Which of the following were discussed: Hospice care: Yes __ No _X_ Therapeutic options: Yes _X_ No __ Advance directives: Yes _X_ No __ Other discussions: Discussed with who?: Patient Voluntary nature of this service was explained to the patient? Yes _x_ No __ Amount of time spent: 20 minutes CATRACHITA URIAS MD Jan 13, 2025 13:47
--- NOTE | 2025-01-13 14:58 | CONS ---
NEPHROLOGY CONSULTATION NOTE Date/Time Patient Seen: Jan 13, 2025 Reason for Consultation: Hyponatremia HISTORY OF PRESENT ILLNESS: This is a 54-year-old malen history of alcoholic liver cirrhosis, history of portal hypertensive gastropathy, recurrent ascites, recent history of tips [place] [facility] [place], chronic anemia, history of hyponatremia, He presented to the ER for further evaluation of significant abdominal distention with associated nausea and vomiting. He was noted with hyponatremia We are consulted for hyponatremia Renal function is stable Electrolytes were noted He was seen in the emergency room, in no acute distress No family at the bedside Prognosis remains guarded REVIEW OF SYSTEMS: GENERAL: Negative for any nausea, vomiting, fevers, chills, or weight loss. NEUROLOGIC: Negative for any blurry vision, blind spots, double vision, facial asymmetry, dysphagia, dysarthria, hemiparesis, hemisensory deficits, vertigo, ataxia. HEENT: Negative for any head trauma, neck trauma, neck stiffness, photophobia, phonophobia, sinusitis, rhinitis. CARDIAC: Negative for any chest pain, dyspnea on exertion, paroxysmal nocturnal dyspnea, peripheral edema. PULMONARY: Negative for any shortness of breath, wheezing, COPD, or TB exposure. GASTROINTESTINAL: Negative for any abdominal pain, nausea, vomiting, bright red blood per rectum, melena. GENITOURINARY: Negative for any dysuria, hematuria, incontinence. INTEGUMENTARY: Negative for any rashes, cuts, insect bites. RHEUMATOLOGIC: Negative for any joint pains, photosensitive rashes, history of vasculitis or kidney problems. HEMATOLOGIC: Negative for any abnormal bruising, frequent infections or bleeding. PAST MEDICAL HISTORY: Acoholic liver cirrhosis, history of portal gastropathy, history of hyponatremia, history of recurrent ascites PAST SURGICAL HISTORY: Paracentesis, tips placement PAST SOCIAL HISTORY: History of alcoholism, last drink was three months ago FAMILY HISTORY: Noncontributory PHYSICAL EXAM: GENERAL: Alert and oriented x 3. No acute distress. Well-nourished. EYES: EOMI. Anicteric. HENT: Moist mucous membranes. No scleral icterus. No cervical lymphadenopathy. LUNGS: Clear to auscultation bilaterally. No accessory muscle use. CARDIOVASCULAR: Regular rate and rhythm. No murmur. No JVD. ABDOMEN: Soft, non-tender and non-distended. No palpable masses. EXTREMITIES: No edema. Non-tender. SKIN: No rashes or lesions. Warm. NEUROLOGIC: No focal neurological deficits. CN II-XII grossly intact, but not individually tested. PSYCHIATRIC: Cooperative. Appropriate mood and affect. MEDICATIONS: [ ] Current Medications Medications (Trade) Dose Ordered Sig/Ronak Route PRN Reason Start Time Stop Time Status Last Admin Dose Admin Acetaminophen (TYLenol 325MG TAB) 650 mg Q6H PRN PO MILD PAIN (1-3) 01/13/25 13:30 02/12/25 13:29 Albumin Human 50 ml @ 0 mls/hr Q6H IV 01/13/25 13:30 01/15/25 13:30 01/13/25 13:35 300 MLS/HR Ceftriaxone Sodium (Rocephin 2gm Inj) 2 gm DAILY IVPB 01/14/25 09:00 01/24/25 08:59 Ceftriaxone Sodium (Rocephin 2gm Inj) 2 gm ONCE STAT IVPB 01/13/25 09:47 01/13/25 09:49 DC 01/13/25 12:01 2 GM Ipratropium [place] (AtrovENT UD) 0.5 mg Q6H PRN IH SHORTNESS OF BREATH 01/13/25 13:30 02/12/25 13:29 Lactulose (Constulose 20gm/ 30ml Udcup) 20 gm BID PO 01/13/25 21:00 02/12/25 20:59 Midodrine (PROAMatine 5 MG TABLET) 5 mg TID PO 01/13/25 14:00 02/12/25 13:59 01/13/25 13:35 5 MG Ondansetron HCl (zoFRAN 4MG INJ) 4 mg ONCE STAT IVP 01/13/25 09:47 01/13/25 09:49 DC 01/13/25 12:01 4 MG Ondansetron HCl (zoFRAN 4MG INJ) 4 mg Q6H PRN IVP NAUSEA/VOMITING 01/13/25 13:30 02/12/25 13:29 Pantoprazole Sodium (PROTonix 40MG INJ) 40 mg Q24H IVP 01/13/25 13:30 02/12/25 13:29 01/13/25 13:35 40 MG Thiamine HCl (Vitamin B-1) 100 mg DAILY IVP 01/14/25 09:00 02/13/25 08:59 Vitamin B Complex/ Vit C/Folic Acid (Nephrovite Tablet) 1 cap DAILY PO 01/14/25 09:00 02/13/25 08:59 Vital Signs (last 8hr) Date Time Temp Pulse Resp B/P (MAP) Pulse Ox O2 Delivery O2 Flow Rate FiO2 01/13/25 13:00 115 16 113/58 97 Room Air* 0 21 01/13/25 11:48 117 16 132/84 100 Room Air* 0 21 01/13/25 09:13 97.7 124 18 137/94 97 Room Air DIAGNOSTICS / RADIOLOGY: [place] [id number] IMAGING REPORT Signed PATIENT: CHAN GARDINER MR#: [id number] : 1970 SEX: M AGE: 54 LOCATION: [facility] ORDER 7 STATUS: REG REPORT#: [id number] SERVICE REASON: vomiting and ascites ORDERING PHYSICIAN: RACHEL MAZARIEGOS MD PROCEDURE: ABD PELVWO - CT ABD/PEL WO CON RENAL/APPY EXAM: CT Abdomen and Pelvis Without IV Contrast CLINICAL HISTORY: Vomiting and ascites. TECHNIQUE: Axial computed tomography images of the abdomen and pelvis acquired without intravenous contrast. Dose optimization techniques applied. Total DLP: 408 mGy???cm. CONTRAST: No IV contrast administered. COMPARISON: Ultrasound Abdomen (US/SD) dated 12/29/2024, which demonstrated a large heterogeneous right hepatic lobe lesion (10.8 ??? 2.9 ??? 9.4 cm) superior to the TIPS tract, absent shunt flow suggesting possible TIPS occlusion or thrombosis, reduced portal vein flow, new ascites, and right pleural effusion with basal lung collapse. FINDINGS: LUNG BASES: Gross loculated right pleural collection measuring up to 7.0 cm in maximum thickness, causing compression atelectasis of the adjacent right lower lobe. No left-sided effusion or consolidation. LIVER: Cirrhotic morphology with coarse, nodular surface contour. An ill-defined, faintly heterogeneous hypodense lesion is noted in the right lobe of the liver along the lateral margin of the TIPS shunt, measuring approximately 5.0 ??? 4.8 cm. This lesion may represent a residual or evolving hematoma or post-procedural collection; however, further characterization requires contrast-enhanced imaging. No other discrete enhancing lesion is seen within the limitations of the non-contrast study. TIPS SHUNT: TIPS shunt visualized between the right portal and hepatic veins. Assessment of shunt patency is limited on non-contrast imaging. No displacement or gross thrombosis evident. GALLBLADDER AND BILE DUCTS: Gallbladder normal in size and wall thickness. No cholelithiasis or biliary dilatation. PANCREAS: Normal in size and attenuation. SPLEEN: Normal in size and homogeneous attenuation. ADRENAL GLANDS: Unremarkable. KIDNEYS, URETERS, AND BLADDER: Normal cortical thickness and attenuation. No hydronephrosis or calculi. Urinary bladder normal. STOMACH AND BOWEL: Non-dilated bowel loops with preserved mural thickness. No obstruction or perforation. APPENDIX: Normal in caliber. No periappendiceal inflammation. PERITONEUM: Gross ascites throughout the abdomen and pelvis. No free air. LYMPH NODES: No abnormally enlarged mesenteric or retroperitoneal lymph nodes. REPRODUCTIVE ORGANS: Within normal limits as visualized. VASCULATURE: Major abdominal vessels are patent. No aneurysm or thrombosis. BONES AND SOFT TISSUES: No acute osseous or soft tissue abnormality.IMPRESSION: 1. Ill-defined, hypodense right hepatic lobe lesion (5.0 x 4.8 cm) along the lateral margin of the TIPS shunt, reduced in size from prior ultrasound. Indeterminate on non-contrast study; contrast-enhanced CT or MRI recommended for further characterization. 2. Large loculated right pleural effusion (7.0 cm maximum thickness) with compression atelectasis of the adjacent right lower lobe. 3. Cirrhotic liver morphology with gross ascites throughout the abdomen and pelvis. 4. TIPS shunt in situ between right portal and hepatic veins; patency indeterminate without contrast. 5. No other acute intra-abdominal or pelvic abnormalities detected within the limitations of non-contrast imaging. 6. Compared with the prior abdominal ultrasound dated 12/29/2024, the previously described heterogeneous right hepatic lesion (10.8 ??? 2.9 ??? 9.4 cm) has reduced in size to approximately 5.0 ??? 4.8 cm, now appearing ill-defined and hypodense. Persistent ascites and new organization of the right pleural fluid into a loculated collection (7 cm) with lower lobe atelectasis are noted. The TIPS shunt remains in position; however, shunt patency cannot be reassessed without contrast or Doppler evaluation. No new hepatic or extrahepatic lesion identified. /[place] DICTATED BY: TYRONE NOLEN MD DATE: 01/13/251303 ELECTRONICALLY SIGNED BY: TYRONE NOLEN MD DATE: 01/13/251303 PATIENT: CHAN GARDINER MR#: [id number] : 1970 SEX: M AGE: 54 LOCATION: [facility] ORDER 9 STATUS: REG REPORT#: [id number] SERVICE 8 REASON: sob ORDERING PHYSICIAN: RACHEL MAZARIEGOS MD PROCEDURE: CXR1VW - CHEST 1VW EXAM: CR Chest, 1 View. CLINICAL HISTORY: sob COMPARISON: Radiograph dated December 18, 2024 Findings: AP view of the chest is submitted. Large right pleural effusion with suggestion of a loculated component. Subjacent airspace disease may reflect atelectasis and/or an infectious/inflammatory process. The left lung is clear. No pneumothorax. Heart size and pulmonary vessels are within normal limits. IMPRESSION: 1. Large right pleural effusion with possible loculation. 2. Right lower lobe airspace disease, potentially atelectasis or pneumonia. /[place] DICTATED BY: MARIANN HOWARD Jr., MD DATE: 01/13/251302 ELECTRONICALLY SIGNED BY: MARIANN HOWARD Jr., MD DATE: 01/13/251302 LABORATORY: [ ] Hematology Labs: Test 01/13/25 09:27 Range/Units White Blood Count 11.2 H 4.8-10.8 K/uL Red Blood Count 3.03 L 4.50-6.20 MIL/uL Hemoglobin 10.1 L 14.0-18.0 g/dL Hematocrit 29.8 L 42-54 % Mean Corpuscular Volume 98.3 79-99 fL Mean Corpuscular Hemoglobin 33.3 H 27.0-33.0 pg Mean Corpuscular Hemoglobin Concent 33.9 32.0-36.0 g/dL Red Cell Distribution Width 22.5 H 11.0-15.5 % Platelet Count 157 130-400 K/uL Mean Platelet Volume 8.0 7.5-10.5 fL Immature Granulocyte % (Auto) 0.4 0-1 % Neutrophils (%) (Auto) 76.4 40.0-77.0 % Lymphocytes (%) (Auto) 14.8 L 21.0-51.0 % Monocytes (%) (Auto) 7.6 3.0-13.0 % Eosinophils (%) (Auto) 0.7 0.0-8.0 % Basophils (%) (Auto) 0.1 0.0-5.0 % Neutrophils # (Auto) 8.5 H 1.8-7.7 K/uL Lymphocytes # (Auto) 1.7 1.0-4.8 K/uL Monocytes # (Auto) 0.9 0.1-1.0 K/uL Eosinophils # (Auto) 0.08 0.00-0.70 K/uL Basophils # (Auto) 0.01 0.00-0.20 K/uL Absolute Immature Granulocyte (auto 0.05 0-1 K/uL Nucleated Red Blood Cells 0.0 0.0-0.19 % Erythrocyte Sedimentation Rate 30 H 0-20 MM/HR Chemistry Labs: Test 01/13/25 09:56 01/13/25 09:27 Range/Units Lactic Acid Level 1.9 0.8-2.5 mmol/L Ammonia < 10 L 11-32 umol/L Lactate Dehydrogenase 346 H 81-234 U/L Troponin I High Sensitivity 5 4-75 ng/L C-Reactive Protein, Quantitative 41.80 H 0.5-3.0 mg/L Lipase 41 16-77 U/L Procalcitonin 0.18 0.05-0.5 ng/mL Thyroid Stimulating Hormone (TSH) 2.36 # 0.36-3.74 uIU/mL Sodium Level 125 L 136-145 mmol/L Potassium Level 4.2 3.5-5.1 mmol/L Chloride Level 95 L 101-111 mmol/L Carbon Dioxide Level 28 21-32 mmol/L Blood Urea Nitrogen 16 7-18 mg/dL Creatinine 0.8 0.5-1.3 mg/dL Glomerular Filtration Rate Calc 106 >90 mL/min Random Glucose 92 70-105 mg/dL Total Calcium 7.2 L 8.5-10.1 mg/dL Total Bilirubin 3.1 H 0.2-1.0 mg/dL Direct Bilirubin 1.5 H 0.0-0.3 mg/dL Aspartate Amino Transf (AST/SGOT) 56 H 10-37 U/L Alanine Aminotransferase (ALT/SGPT) 18 12-78 U/L Alkaline Phosphatase 335 H 50-136 U/L Total Protein 6.0 6.0-8.3 g/dL Albumin 1.6 L 3.5-5.0 g/dL Coagulation Labs: Test 01/13/25 09:27 Range/Units Prothrombin Time 14.4 H 9.6-11.6 SEC Prothromb Time International Ratio 1.41 H 0.85-1.15 Activated Partial Thromboplast Time 33.9 26.3-35.5 SEC ASSESSMENT: Hyponatremia Ascites patient has cirrhosis of liver with alcohol abuse before Large right-sided pleural effusion Sinus tachycardia, POA History of portal hypertensive gastropathy, POA History of gastritis, POA Prior history of alcohol use, quit alcohol three months ago, POA Anemia, POA PLAN: Labs, diagnostic, radiologic exams reviewed and interpreted by myself and supervising physician. We have reviewed external records in detail Obtain UA, urine electrolytes, urine creatinine, urine osmolality Require close monitoring of renal function and electrolytes Order CBC, CMP, uric acid, TSH, cortisol level, serum osmolality and electrolytes in am BiPAP as necessary, for respiratory distress Monitor blood pressure adjust medication doses as needed Avoid hypotensive episodes May use Dilaudid 0.5 mg IV every 6 hours as needed for severe pain Monitor blood sugars Strict intake, output, and daily weight should be monitored Please renally adjust medications Avoid nephrotoxic and nonsteroidal drugs Avoid contrast if possible Will continue to monitor renal function, anemia, electrolytes Treatment plan discussed with patient Questions were answered We have discussed with the other team physicians in detail about the care plan We will continue to monitor the patient closely Thank you for allowing us to participate in the care of this patient ATTESTATION BY PHYSICIAN I have seen and examined the patient. I reviewed the documentation, medical decision making, and treatment plan as noted by the mid-level provider above. I agree with the findings and plan of care. HARJINDER CORTÉS MD, ELIZABETH FNP Jan 13, 2025 14:58 HARJINDER CORTÉS MD Jan 13, 2025 19:57
--- NOTE | 2025-01-13 16:03 | HMCIMG ---
Examination: Ultrasound examination of the abdomen Clinical history: Evaluate the patency of the main portal vein. Comparison: Correlation with prior ultrasound images. Findings: Grayscale and color ultrasound images of the right upper quadrant submitted. Cirrhotic hepatic morphology. Ascites. Peak systolic velocities within the TIPS are as follows: Proximal, mid, and distal are 95, 167, and 131 cm/s respectively. IMPRESSION: 1. Patent TIPS with peak systolic velocities: proximal 95 cm/s, mid 167 cm/s, distal 131 cm/s. 2. Cirrhotic liver morphology with ascites. /[place]
--- NOTE | 2025-01-13 16:13 | NUR ---
DCP: HOME Sw was discharged to home on 12/31. Pt reports his roommates assist him as needed. Roommate Violeta Reece [phone] assists with cooking, cleaning home and laundry. She will transport pt to [facility] as needed. Pt has a cane, w/c for use outside the mobile home he lives in. Pt sates he can ambulate at home without DME, also able to complete bathing dressing and grooming without assistance. No HH or provider services. PCP is Soren Veras. Pt states he will return home at [facility]
--- NOTE | 2025-01-13 16:54 | NUR ---
OBTAINED URINE SAMPLE FROM PT AND SENT TO LAB ABOUT 1 HR AGO, WAS TOLD LAB HAS NOT RECEIVED IT. ASKED PT FOR ANOTHER URINE SAMPLE, AWAITING SAMPLE FROM PT
[2025-01-13 17:33] LABS: APPEARANCE,URINE CLEAR (CLEAR); GLUCOSE, URINE (UA) NEGATIVE (NEGATIVE); LEUKOCYTE ESTERASE ,URINE NEGATIVE Leu/uL (NEGATIVE); NITRATE,URINE NEGATIVE (NEGATIVE); OCCULT BLOOD,URINE NEGATIVE (NEGATIVE)
[2025-01-13 17:34] LABS: ADD UA MICROSCOPIC YES
[2025-01-13 17:36] LABS: CREATININE,URINE RANDOM 153.77 mg/dL (30-135)
[2025-01-13 17:38] LABS: SQUAMOUS EPITHELIAL CELL,UR RARE /HPF (0-2)
[2025-01-13 19:03] LABS: CREATININE 0.7 mg/dL (0.5-1.3); GLOMERULAR FILTR. RATE CALC 111.0 mL/min (>90); GLUCOSE,RANDOM 122.0 mg/dL (70-105); SODIUM SERUM 128.0 mmol/L (136-145); UREA NITROGEN, BLOOD 18.0 mg/dL (7-18)
--- NOTE | 2025-01-13 19:56 | CONS ---
[facility] CONSULTATION NOTE Date Patient Seen: Jan 13, 2025 Time of Visit: 19:50 Supervising Physician: [Dr. Taran Morgan ] Reason for Consultation: [Loculated pleural effusion ] Primary Care Physician: [Dr. Miko Moya] Outpatient Specialists: [ ] Inpatient Consults: [[facility] team-pulmo, Dr. Gallo-nephro PROBLEM LIST: Loculated right pleural effusion, large-POA Ascites with recurrent paracentesis-POA Alcoholic liver cirrhosis-POA: Child-santizo score=11 points: Child class C with life expectancy 1-3 years; MELD-Na score- 24 points=14-15% est 90-day mortality Acute on chronic hyponatremia-POA Hepatic transaminitis-POA Hyperbilirubinemia-POA Mild leukocytosis-POA Right lobe liver lesion-POA Hypoalbuminemia-POA Primary HTN HLD S/p TIPS placement 12/2024 History of portal hypertensive gastropathy History of gastritis Prior history of alcohol and nicotine use, quit alcohol three months ago Anemia Coagulopathy, mild, secondary to underlying liver cirrhosis History of subcapsular hematoma of the right subhepatic space noted on abdominal CT from 12/2024, from TIPS postprocedure PLAN: -Patient is already on IV Rocephin for SBP prophylaxis, we will add IV Flagyl q8 H for loculated pleural effusion coverage -Titrate oxygen to keep sats >92%, currently on room air -PRN neb treatment -I.S. q1H x10 while awake -[facility] pulmo team to evaluate for possible thoracentesis -Manage cough and fever PRN -Obtain tumor markers -The rest of medical management per primary team HPI: [Per hospitalist's notes: "54-year-old malen history of alcoholic liver cirrhosis, history of portal hypertensive gastropathy, recurrent ascites, recent history of tips procedure by Dr. Yoder [place] [facility] [place], chronic anemia, history of hyponatremia, presented to the ER for further evaluation of significant abdominal distention with associated nausea and vomiting. Patient reports that he has been having significant abdominal distention since discharge from the hospital on 12/31/2024., patient was previously hospitalized in [facility] [place] and had an extended hospital stay if where he underwent tips placement for recurrent large volume ascites. Patient states that he has been trying to be compliant with his home medications. He remains on lactulose, midodrine at home. Unsure if patient has had compliance with oral diuretics as outpatient. Patient did not bring any of his home medications today to the ER. Also reports having significant abdominal pain due to progressive distention of the abdomen, currently rates the pain as 8/10 in severity. Oral intake has been poor due to abdominal distention.Patient reports that he gets short of breath with minimal activity. Denies any cough. Denies any pleurisy. Denies any recent history of hematochezia or melena." [facility]IS team was consulted for loculated pleural effusion per CT report. Floor Molder services provided by Andrea [place]: Patient claims that he just recently had a paracentesis last Friday equivalent to 4.5 L fluid drained. Despite this, he still continues to experience shortness of breath that is worse on exertion. Yesterday, he came up here in the ER but was eventually sent home because he was told that nobody was available to tap him. He continues to have abdominal distention and pain with pain scale of 10/10. He claimed that he was doing well after his tips placement. Otherwise, he denies other constitutional symptoms. On my assessment, patient is currently on room air saturating 95-96%. He endorses a pain scale of 3/10. Abdomen is mildly soft but without board-like rigidity, BNP he has 3+ pitting edema. Patient is not encephalopathic. Goals of care was discussed with the patient verbalizing understanding and agreement. We will continue to follow along patient's response to treatment. On behalf of [facility] team, thank you for allowing us to participate in Mr. German's care. PAST MEDICAL HX: see above PAST SURGICAL HX: noncontributory SOCIAL HISTORY: No tobacco, ETOH, or illicit drug use Coded Allergies: NSAIDS (Non-Steroidal Anti-Inflamma (Unverified Allergy, Intermediate, 06/09/24) aspirin (Unverified Allergy, Intermediate, 06/09/24) ibuprofen (Unverified Allergy, Intermediate, 06/09/24) REVIEW OF SYSTEMS: 12 point ROS reviewed with patient. Pertinent positives mentioned above. Otherwise negative. PHYSICAL EXAM: GENERAL: alert, weak, awake oriented x 3 HEENT: EOMI, Sclera non icteric, moist mucosa NECK: Supple, no JVD, trachea midline LUNGS: Clear breath sounds bilaterally. No wheezes HEART: Regular rate and rhythm. Normal S1 and S2, without murmurs Tachycardia ABD: Abdomen semi-firm, nontender. Bowel sounds present EXT: No clubbing cyanosis, 3+ pittind edema on BLE NEURO: Alert and oriented to person, follows commands Vital Signs (last 8hr) Date Time Temp Pulse Resp B/P (MAP) Pulse Ox O2 Delivery O2 Flow Rate FiO2 01/13/25 16:46 101 16 117/71 98 Room Air* 0 21 01/13/25 14:58 102 16 122/79 98 Room Air* 0 21 01/13/25 13:00 115 16 113/58 97 Room Air* 0 21 LABS: Hematology Labs: Test 01/13/25 09:27 Range/Units White Blood Count 11.2 H 4.8-10.8 K/uL Red Blood Count 3.03 L 4.50-6.20 MIL/uL Hemoglobin 10.1 L 14.0-18.0 g/dL Hematocrit 29.8 L 42-54 % Mean Corpuscular Volume 98.3 79-99 fL Mean Corpuscular Hemoglobin 33.3 H 27.0-33.0 pg Mean Corpuscular Hemoglobin Concent 33.9 32.0-36.0 g/dL Red Cell Distribution Width 22.5 H 11.0-15.5 % Platelet Count 157 130-400 K/uL Mean Platelet Volume 8.0 7.5-10.5 fL Immature Granulocyte % (Auto) 0.4 0-1 % Neutrophils (%) (Auto) 76.4 40.0-77.0 % Lymphocytes (%) (Auto) 14.8 L 21.0-51.0 % Monocytes (%) (Auto) 7.6 3.0-13.0 % Eosinophils (%) (Auto) 0.7 0.0-8.0 % Basophils (%) (Auto) 0.1 0.0-5.0 % Neutrophils # (Auto) 8.5 H 1.8-7.7 K/uL Lymphocytes # (Auto) 1.7 1.0-4.8 K/uL Monocytes # (Auto) 0.9 0.1-1.0 K/uL Eosinophils # (Auto) 0.08 0.00-0.70 K/uL Basophils # (Auto) 0.01 0.00-0.20 K/uL Absolute Immature Granulocyte (auto 0.05 0-1 K/uL Nucleated Red Blood Cells 0.0 0.0-0.19 % Erythrocyte Sedimentation Rate 30 H 0-20 MM/HR Chemistry Labs: Test 01/13/25 18:49 01/13/25 09:56 01/13/25 09:27 Range/Units Sodium Level 128 L 136-145 mmol/L Potassium Level 4.7 3.5-5.1 mmol/L Chloride Level 96 L 101-111 mmol/L Carbon Dioxide Level 29 21-32 mmol/L Blood Urea Nitrogen 18 7-18 mg/dL Creatinine 0.7 0.5-1.3 mg/dL Glomerular Filtration Rate Calc 111 >90 mL/min Random Glucose 122 H 70-105 mg/dL Total Calcium 7.2 L 8.5-10.1 mg/dL Lactic Acid Level 1.9 0.8-2.5 mmol/L Ammonia < 10 L 11-32 umol/L Lactate Dehydrogenase 346 H 81-234 U/L Troponin I High Sensitivity 5 4-75 ng/L C-Reactive Protein, Quantitative 41.80 H 0.5-3.0 mg/L Lipase 41 16-77 U/L Procalcitonin 0.18 0.05-0.5 ng/mL Thyroid Stimulating Hormone (TSH) 2.36 # 0.36-3.74 uIU/mL Total Bilirubin 3.1 H 0.2-1.0 mg/dL Direct Bilirubin 1.5 H 0.0-0.3 mg/dL Aspartate Amino Transf (AST/SGOT) 56 H 10-37 U/L Alanine Aminotransferase (ALT/SGPT) 18 12-78 U/L Alkaline Phosphatase 335 H 50-136 U/L Total Protein 6.0 6.0-8.3 g/dL Albumin 1.6 L 3.5-5.0 g/dL Coagulation Labs: Test 01/13/25 09:27 Range/Units Prothrombin Time 14.4 H 9.6-11.6 SEC Prothromb Time International Ratio 1.41 H 0.85-1.15 Activated Partial Thromboplast Time 33.9 26.3-35.5 SEC DIAGNOSTICS / RADIOLOGY RESULTS: [ ] PLAN NEURO: Minimize central acting medications as possible. Maintain fall precautions, adequate lighting during the day PULMONARY: Supplemental 02 as needed. Maintain aspiration precautions at all times CARDIOVASCULAR: Follow hemodynamics. Vital signs per facility protocol GI & NUTRITION: Continue with nutritional support. Continue stool softeners and laxatives as needed. KIDNEYS & ELECTROLYTES: Strict monitoring of intake, output and overall fluid balance. Avoid nephrotoxic medications to the extent possible. Medications to be dosed according to renal function. Monitor electrolytes and replace as needed ENDOCRINE: Maintain blood glucose between 100-180 at all times. Hypoglycemia protocol in place INFECTIOUS DISEASE: Trend temperature, WBC and procalcitonin level Follow cultures, deescalate antibiotics as soon as possible. Panculture if new onset fever ONCOLOGY/HEMATOLOGY/COAGULATION: Monitor for s/s of bleeding Monitor hemoglobin, coagulation studies as needed SKIN: Pressure ulcer prevention per facility protocol Specialty mattress ORTHO/REHAB: Continue PT/OT Prophylaxis: Continue GI and DVT prophylaxis Code Status: Full Resuscitation Disposition: MARCELINO HORNE AGACNP Jan 13, 2025 19:56
[2025-01-13] MEDS: LACTULOSE 20 GM/30 ML UDCUP PO SCH (20:00)
[2025-01-14] VITALS (16 sets, daily range): BP systolic 106–135; BP diastolic 64–78; PULSE 98–111; RESP 16–20; TEMP 97.7–98.5; O2SAT 98–99
--- NOTE | 2025-01-14 04:45 | EKG ---
[facility] Test Date: 2025-01-13 Test Time: 10:42:06 Pat Name: CHAN GARDINER Department: [facility] Room: 408 Gender: M Corrections Specialist: [id number] : 1970 Requested By: RACHEL MAZARIEGOS Order Number: [id number] Reading MD: Reginald Ferraro Measurements Intervals [place] Rate: 117 P: 21 [place]: 155 QRS: 27 QRSD: 88 T: -4 QT: 329 QTc: 458 Interpretive Statements Sinus tachycardia Anterior infarct, old Compared to ECG 01/11/2025 14:04:50 No significant changes Electronically Signed On 01-14-2025 11:28:41 SANITATION WORKER by Reginald Ferraro Please click the below link to view image of tracing.
--- NOTE | 2025-01-14 05:05 | NUR ---
ADMISSION: PT RECEIVED FROM ER VIA BED ,NO FAMILY AT BEDSIDE. PT STATES HE WAS HAVING WORSENING FLUID DISTENTION AND SHORTNESS OF BREATH WITH EXERTION. PT COMES IN ROUTINELY FOR PARACENTESIS/FLUID REMOVAL. PT IS AWAKE/ALERT/ORIENTED X 3, DID NOT BRING IN HOME MEDICATIONS BUT WILL LET FAMILY KNOW TO BRING IN. PT VOICES NO ABD PAIN AT THE MOMENT, NO SOB NOTED. PT INSTRUCTED NOT TO EAT OR DRINK ANYTHING FOR PARACENTESIS PROCEDURE IN AM. PT VERBALIZES UNDERSTANDING. ORIENTED TO ROOM, SURROUNDINGS AND CALL LIGHT, S/R UP X2, BED ALARM IN PLACE.
[2025-01-14 05:40] LABS: IMMATURE GRANULOCYTE ABSOLUTE 0.04 K/uL (0-1); NUCLEATED RED BLOOD CELLS 0.0 % (0.0-0.19); PLATELET COUNT (AUTO) 126 K/uL (130-400); RED BLOOD CELL COUNT(AUTO) 2.53 MIL/uL (4.50-6.20); RED CELL DISTRIBUTION WIDTH 21.8 % (11.0-15.5); WHITE BLOOD COUNT (AUTO) 9.8 K/uL (4.8-10.8)
[2025-01-14 05:54] LABS: ASPARTATE AMINOTRANSFERASE 44.0 U/L (10-37); CREATININE 0.7 mg/dL (0.5-1.3); GLOMERULAR FILTR. RATE CALC 111.0 mL/min (>90); GLUCOSE,RANDOM 93.0 mg/dL (70-105); SODIUM SERUM 127.0 mmol/L (136-145); TOTAL PROTEIN, SERUM 5.3 g/dL (6.0-8.3); UREA NITROGEN, BLOOD 15.0 mg/dL (7-18)
[2025-01-14] MEDS: Vitamin B Complex/Vit C/Folic Acid PO SCH (09:55)
[2025-01-14] MEDS: THIAMINE HCL 100 MG/ML 2ML VIAL IVP SCH (09:56)
--- NOTE | 2025-01-14 11:45 | PN ---
[facility] PROGRESS NOTE Date Patient Seen: Jan 14, 2025 Time of Visit: 11:37 Supervising Physician: DR Jenkins Primary Care Physician: [Dr. Miko Moya] Outpatient Specialists: [ ] Inpatient Consults: [BIS team-pulmichael, Dr. Gallo-nephro PROBLEM LIST: Loculated right pleural effusion, large-POA Ascites with recurrent paracentesis-POA Alcoholic liver cirrhosis-POA: Child-santizo score=11 points: Child class C with life expectancy 1-3 years; MELD-Na score- 24 points=14-15% est 90-day mortality Acute on chronic hyponatremia-POA Hepatic transaminitis-POA Hyperbilirubinemia-POA Mild leukocytosis-POA Right lobe liver lesion-POA Hypoalbuminemia-POA Primary HTN HLD S/p TIPS placement 12/2024 History of portal hypertensive gastropathy History of gastritis Prior history of alcohol and nicotine use, quit alcohol three months ago Anemia Coagulopathy, mild, secondary to underlying liver cirrhosis History of subcapsular hematoma of the right subhepatic space noted on abdominal CT from 12/2024, from TIPS postprocedure PLAN: Supplemental oxygen as needed PT currently on room air Continue Rocephin Continue Flagyl IR for right thoracentesis Send fluid for analysis Follow tumor markers -The rest of medical management per primary team INTERVAL HISTORY: [Per hospitalist's notes: "54-year-old malen history of alcoholic liver cirrhosis, history of portal hypertensive gastropathy, recurrent ascites, recent history of tips procedure by Dr. Yoder in [facility] on 12/2024, chronic anemia, history of hyponatremia, presented to the ER for further evaluation of si gnificant abdominal distention with associated nausea and vomiting. Patient reports that he has been having significant abdominal distention since discharge from the hospital on 12/31/2024., patient was previously hospitalized in [facility] on 12/15/2024 and had an extended hospital stay if where he underwent tips placement for recurrent large volume ascites. Patient states that he has been trying to be compliant with his home medications. He remains on lactulose, midodrine at home. Unsure if patient has had compliance with oral diuretics as outpatient. Patient did not bring any of his home medications today to the ER. Also reports having significant abdominal pain due to progressive distention of the abdomen, currently rates the pain as 8/10 in severity. Oral intake has been poor due to abdominal distention.Patient reports that he gets short of breath with minimal activity. Denies any cough. Denies any pleurisy. Denies any recent history of hematochezia or melena." BIS team was consulted for loculated pleural effusion per CT report. Director [employer] services provided by [place]: Patient claims that he just recently had a paracentesis last Friday equivalent to 4.5 L fluid drained. Despite this, he still continues to experience shortness of breath that is worse on exertion. Yesterday, he came up here in the ER but was eventually sent home because he was told that nobody was available to tap him. He continues to have abdominal distention and pain with pain scale of 10/10. He claimed that he was doing well after his tips placement. Otherwise, he denies other constitutional symptoms. On my assessment, patient is currently on room air saturating 95-96%. He endorses a pain scale of 3/10. Abdomen is mildly soft but without board-like rigidity, BNP he has 3+ pitting edema. Patient is not encephalopathic. Goals of care was discussed with the patient verbalizing understanding and agreement. We will continue to follow along patient's response to treatment. On behalf of BIS team, thank you for allowing us to participate in Mr. German's care. 01/14 - patient is seen and evaluated at the bedside. Patient is sitting up in bed with no signs of acute distress. Patient remains on room air and denies chest discomfort, chest pain or dyspnea. Patient does admit minimal dyspnea with exertion however while at rest he is perfectly fine. No acute changes reported overnight. Patient does continue with abdominal distention. Recommend IR for right thoracentesis. Send pleural fluid for analysis. Patient is scheduled for a paracentesis today. Recommend continue Rocephin for SBP. Patient had abdominal ultrasound shows cirrhotic liver morphology with ascites. Patient's tips with peak systolic velocities proximal mid and distal are 95, 167 and 131 CMS/S. We will continue to follow up with you. Patient reports a recent paracentesis last Friday with 4.5 L removed. Patient may require restarting Lasix and spironolactone if ascites persists. REVIEW OF SYSTEMS: 12 point ROS reviewed with patient. Pertinent positives mentioned above. Otherwise negative. PHYSICAL EXAM: GENERAL: alert, weak, awake oriented x 3 HEENT: EOMI, Sclera non icteric, moist mucosa NECK: Supple, no JVD, trachea midline LUNGS: Clear breath sounds bilaterally. No wheezes HEART: Regular rate and rhythm. Normal S1 and S2, without murmurs Tachycardia ABD: Abdomen semi-firm, nontender. Bowel sounds present EXT: No clubbing cyanosis, 3+ pittind edema on BLE NEURO: Alert and oriented to person, follows commands Vital Signs (last 8hr) Date Time Temp Pulse Resp B/P (MAP) Pulse Ox O2 Delivery O2 Flow Rate FiO2 01/14/25 08:00 98.1 98 18 114/72 99 Room Air 01/14/25 05:05 98 Room Air* 0 21 01/14/25 05:05 97.9 103 20 124/78 98 Room Air 01/14/25 04:53 97.9 94 16 95/59 8 Room Air* 0 21 LABS: Hematology Labs: Test 01/14/25 05:25 01/13/25 09:27 Range/Units White Blood Count 9.8 4.8-10.8 K/uL Red Blood Count 2.53 L 4.50-6.20 MIL/uL Hemoglobin 8.3 L 14.0-18.0 g/dL Hematocrit 24.4 L 42-54 % Mean Corpuscular Volume 96.4 79-99 fL Mean Corpuscular Hemoglobin 32.8 27.0-33.0 pg Mean Corpuscular Hemoglobin Concent 34.0 32.0-36.0 g/dL Red Cell Distribution Width 21.8 H 11.0-15.5 % Platelet Count 126 L 130-400 K/uL Mean Platelet Volume 8.4 7.5-10.5 fL Immature Granulocyte % (Auto) 0.4 0-1 % Neutrophils (%) (Auto) 69.3 40.0-77.0 % Lymphocytes (%) (Auto) 18.6 L 21.0-51.0 % Monocytes (%) (Auto) 9.2 3.0-13.0 % Eosinophils (%) (Auto) 2.1 0.0-8.0 % Basophils (%) (Auto) 0.4 0.0-5.0 % Neutrophils # (Auto) 6.8 1.8-7.7 K/uL Lymphocytes # (Auto) 1.8 1.0-4.8 K/uL Monocytes # (Auto) 0.9 0.1-1.0 K/uL Eosinophils # (Auto) 0.21 0.00-0.70 K/uL Basophils # (Auto) 0.04 0.00-0.20 K/uL Absolute Immature Granulocyte (auto 0.04 0-1 K/uL Nucleated Red Blood Cells 0.0 0.0-0.19 % Erythrocyte Sedimentation Rate 30 H 0-20 MM/HR Chemistry Labs: Test 01/14/25 05:25 01/13/25 09:56 01/13/25 09:27 Range/Units Sodium Level 127 L 136-145 mmol/L Potassium Level 4.2 3.5-5.1 mmol/L Chloride Level 96 L 101-111 mmol/L Carbon Dioxide Level 28 21-32 mmol/L Blood Urea Nitrogen 15 7-18 mg/dL Creatinine 0.7 0.5-1.3 mg/dL Glomerular Filtration Rate Calc 111 >90 mL/min Random Glucose 93 70-105 mg/dL Total Calcium 7.1 L 8.5-10.1 mg/dL Magnesium Level 1.70 L 1.80-2.40 mg/dL Total Bilirubin 2.4 #H 0.2-1.0 mg/dL Aspartate Amino Transf (AST/SGOT) 44 H 10-37 U/L Alanine Aminotransferase (ALT/SGPT) 15 12-78 U/L Alkaline Phosphatase 273 H 50-136 U/L Total Protein 5.3 L 6.0-8.3 g/dL Albumin 1.9 L 3.5-5.0 g/dL Lactic Acid Level 1.9 0.8-2.5 mmol/L Ammonia < 10 L 11-32 umol/L Lactate Dehydrogenase 346 H 81-234 U/L Troponin I High Sensitivity 5 4-75 ng/L C-Reactive Protein, Quantitative 41.80 H 0.5-3.0 mg/L Lipase 41 16-77 U/L Procalcitonin 0.18 0.05-0.5 ng/mL Thyroid Stimulating Hormone (TSH) 2.36 # 0.36-3.74 uIU/mL Direct Bilirubin 1.5 H 0.0-0.3 mg/dL Coagulation Labs: Test 01/13/25 09:27 Range/Units Prothrombin Time 14.4 H 9.6-11.6 SEC Prothromb Time International Ratio 1.41 H 0.85-1.15 Activated Partial Thromboplast Time 33.9 26.3-35.5 SEC DIAGNOSTICS / RADIOLOGY RESULTS: PATIENT: CHAN GERMAN MR#: [id number] : 1970 SEX: M AGE: 54 LOCATION: [facility] ORDER 1308 STATUS: ADM IN REPORT#: [id number] SERVICE 1306 REASON: hx of TIPS, assess TIPS patency, recurrent large volume ascites ORDERING PHYSICIAN: CATRACHITA TENORIO MD PROCEDURE: ABDOMEN - US ABDOMINAL COMPLETE Examination: Ultrasound examination of the abdomen Clinical history: Evaluate the patency of the main portal vein. Comparison: Correlation with prior ultrasound images. Findings: Grayscale and color ultrasound images of the right upper quadrant submitted. Cirrhotic hepatic morphology. Ascites. Peak systolic velocities within the TIPS are as follows: Proximal, mid, and distal are 95, 167, and 131 cm/s respectively. IMPRESSION: 1. Patent TIPS with peak systolic velocities: proximal 95 cm/s, mid 167 cm/s, distal 131 cm/s. 2. Cirrhotic liver morphology with ascites. /[place] DICTATED BY: MARIANN HOWARD Jr., MD DATE: 01/13/251700 ELECTRONICALLY SIGNED BY: MARIANN HOWARD Jr., MD DATE: 01/13/251700 PLAN NEURO: Minimize central acting medications as possible. Maintain fall precautions, adequate lighting during the day PULMONARY: Supplemental 02 as needed. Maintain aspiration precautions at all times CARDIOVASCULAR: Follow hemodynamics. Vital signs per facility protocol GI & NUTRITION: Continue with nutritional support. Continue stool softeners and laxatives as needed. KIDNEYS & ELECTROLYTES: Strict monitoring of intake, output and overall fluid balance. Avoid nephrotoxic medications to the extent possible. Medications to be dosed according to renal function. Monitor electrolytes and replace as needed ENDOCRINE: Maintain blood glucose between 100-180 at all times. Hypoglycemia protocol in place INFECTIOUS DISEASE: Trend temperature, WBC and procalcitonin level Follow cultures, deescalate antibiotics as soon as possible. Panculture if new onset fever ONCOLOGY/HEMATOLOGY/COAGULATION: Monitor for s/s of bleeding Monitor hemoglobin, coagulation studies as needed SKIN: Pressure ulcer prevention per facility protocol Specialty mattress ORTHO/REHAB: Continue PT/OT Prophylaxis: Continue GI and DVT prophylaxis Code Status: Full Resuscitation Disposition: As per attending. ATTESTATION BY PHYSICIAN I attest that I reviewed and discussed the case with the Physician Control Engineer as well as agree with the Physician Control Engineer's findings, plans of care, and documentation above. Taran Daniel MD,[facility] Jan 14, 2025 11:45
--- NOTE | 2025-01-14 12:19 | PN ---
[facility] PROGRESS NOTE Date of Service: Jan 14, 2025 Time of Service: 12:19 SUBJECTIVE: 54-year-old malen history of alcoholic liver cirrhosis, history of portal hypertensive gastropathy, recurrent ascites, recent [place] [facility] [place] chronic anemia, history of hyponatremia, presented to the ER for further evaluation of significant abdominal distention with associated nausea and vomiting. Patient reports that he has been having significant abdominal distention since discharge from the hospital on 12/31/2024., patient was [place] [facility] [place] and had an extended hospital stay if where he underwent tips placement for recurrent large volume ascites. Patient states that he has been trying to be compliant with his home medications. He remains on lactulose, midodrine at home. Unsure if patient has had compliance with oral diuretics as outpatient. Patient did not bring any of his home medications today to the ER. Also reports having significant abdominal pain due to progressive distention of the abdomen, currently rates the pain as 8/10 in severity. Oral intake has been poor due to abdominal distention. Patient reports that he gets short of breath with minimal activity. Denies any cough. Denies any pleurisy. Denies any recent history of hematochezia or melena.On presentation to the hospital, patient was noted to be afebrile and tachycardic with heart rate in the 110s-120s, blood pressure of 137/94 and saturating greater than 97% on room air. [place] [address], hemoglobin 10.1, platelet count of [id number]. BMP showed sodium 125, potassium 4.2, BUN of 16, creatinine of 0.8, lactic acid of 1.9, AST of 56, ALT of 18, alkaline phosphatase of 335, albumin of 1.6.Patient underwent further evaluation with chest x-ray which showed findings of large right-sided pleural effusion with possible loculation and compressive atelectasis of the right lower lobe of the lung.CT of the abdomen pelvis without contrast showed large volume ascites with large loculated right- sided pleural effusion with tips shunt noted. Patient did have subscapular hematoma noted on CT abdomen pelvis from 12/30/2024 after tips procedure. Per radiology, the ill-defined collection looks reduced in size from prior imaging. 01/14 The patient was seen and examined at the bedside. As the patient speaks Upper Sorbian only, a nurse was used as a director of sales marketing. The patient stated that he is feeling better now but still has shortness of breath on exertion. The patient was planned for a paracentesis and thoracocentesis today. Interventional Radiology ordered chest x-ray, fluid culture, fluid cell count, body fluid culture and b elaine fluid cell count. Pleural fluid protein, fungal culture pleural fluid, pleural fluid AFB culture, pleural fluid culture, pleural fluid cell count, pleural fluid glucose, pleural fluid pH and pleural fluid LDH was also ordered. Bilateral upper extremity Doppler also ordered. The patient had hyponatremia therefore Nephrology was consulted and they ordered cortisol a.m., urine and serum osmolality. Pulmonology was consulted for large loculated right-sided pleural effusion and also ordered CEA, cancer antigen, AFP. REVIEW OF SYSTEMS CONSTITUTIONAL: Denies fevers, chills, or night sweats. No unintentional weight loss reported. NEUROLOGICAL: Denies headache, amaurosis fugax, motor weakness, sensory deficit, vertigo/spinning sensation, gait abnormalities, or tremors. ENT: No hearing loss, otalgia, otorrhea, rhinitis, rhinorrhea, hoarseness, or sore throat. CARDIOVASCULAR: Denies any exertional angina, dyspnea on exertion, orthopnea, paroxysmal nocturnal dyspnea, palpitations, life-threatening arrhythmias, claudication. PULMONARY: Patient reports having shortness of breath with minimal activity SLEEP: Denies morning headaches, daytime somnolence or napping. Denies difficulty falling asleep, staying asleep, waking from sleep. Denies knowledge of snoring. GASTROINTESTINAL: Nausea, vomiting abdominal pain GENITOURINARY: Denies frequency, urgency, nocturia, hematuria or incontinence (Storage/Irritative symptoms.) Low urinary stream, straining to void, urinary intermittency or hesitancy, splitting of the voiding stream, terminal dribbling. ENDOCRINOLOGIC: Denies polyuria, polydipsia, polyphagia or heat/cold intolerances. HEMATOLOGIC: Denies thrombophilia/previous clots, or coagulopathy/bleeding disorders. ONCOLOGIC: Denies personal history of malignancy. DERMATOLOGIC: Patient reports having lower extremity edema bilateral PSYCHIATRIC: Denies any suicidal or homicidal ideation. Denies hallucinations. PHYSICAL EXAM GENERAL APPEARANCE: The patient is awake, alert, and oriented, in no acute cardiopulmonary distress. NEUROLOGICAL: Cranial nerves II-XII grossly intact. Motor is 5/5 in bilateral upper and lower extremities proximal to distal. No sensory deficits. HEENT: Face is symmetric. Pupils are equal and reactive. Extraocular movements are intact. NECK: Supple. No JVD. No thyromegaly. No submental, submandibular, pre- /postauricular, occipital or supraclavicular lymphadenopathy. CHEST: Normal chest expansion. No Telemetry. LUNGS: Decreased breath sounds of the right lung base to the upper lung lance CARDIOVASCULAR: Regular. S1 and S2 normal. No appreciable rubs, murmurs or gallops. ABDOMEN: Abdomen is distended with fluid wave noted : Deferred. No Espinosa. EXTREMITIES: 2+ pitting edema noted of bilateral lower extremities. No clubbing. Good capillary refill. SKIN: No skin breakdown. Vital Signs (last 8hr) Date Time Temp Pulse Resp B/P (MAP) Pulse Ox O2 Delivery O2 Flow Rate FiO2 01/14/25 10:45 98.2 106 18 113/71 98 Room Air 01/14/25 08:00 98.1 98 18 114/72 99 Room Air 01/14/25 07:45 99 Room Air* 0 21 01/14/25 05:05 98 Room Air* 0 21 01/14/25 05:05 97.9 103 20 124/78 98 Room Air 01/14/25 04:53 97.9 94 16 95/59 8 Room Air* 0 21 LABS: Laboratory: Test 01/14/25 05:25 01/13/25 17:15 01/13/25 09:56 01/13/25 09:27 Range/Units White Blood Count 9.8 4.8-10.8 K/uL Red Blood Count 2.53 L 4.50-6.20 MIL/uL Hemoglobin 8.3 L 14.0-18.0 g/dL Hematocrit 24.4 L 42-54 % Mean Corpuscular Volume 96.4 79-99 fL Mean Corpuscular Hemoglobin 32.8 27.0-33.0 pg Mean Corpuscular Hemoglobin Concent 34.0 32.0-36.0 g/dL Red Cell Distribution Width 21.8 H 11.0-15.5 % Platelet Count 126 L 130-400 K/uL Mean Platelet Volume 8.4 7.5-10.5 fL Immature Granulocyte % (Auto) 0.4 0-1 % Neutrophils (%) (Auto) 69.3 40.0-77.0 % Lymphocytes (%) (Auto) 18.6 L 21.0-51.0 % Monocytes (%) (Auto) 9.2 3.0-13.0 % Eosinophils (%) (Auto) 2.1 0.0-8.0 % Basophils (%) (Auto) 0.4 0.0-5.0 % Neutrophils # (Auto) 6.8 1.8-7.7 K/uL Lymphocytes # (Auto) 1.8 1.0-4.8 K/uL Monocytes # (Auto) 0.9 0.1-1.0 K/uL Eosinophils # (Auto) 0.21 0.00-0.70 K/uL Basophils # (Auto) 0.04 0.00-0.20 K/uL Absolute Immature Granulocyte (auto 0.04 0-1 K/uL Nucleated Red Blood Cells 0.0 0.0-0.19 % Sodium Level 127 L 136-145 mmol/L Potassium Level 4.2 3.5-5.1 mmol/L Chloride Level 96 L 101-111 mmol/L Carbon Dioxide Level 28 21-32 mmol/L Blood Urea Nitrogen 15 7-18 mg/dL Creatinine 0.7 0.5-1.3 mg/dL Glomerular Filtration Rate Calc 111 >90 mL/min Random Glucose 93 70-105 mg/dL Total Calcium 7.1 L 8.5-10.1 mg/dL Magnesium Level 1.70 L 1.80-2.40 mg/dL Total Bilirubin 2.4 #H 0.2-1.0 mg/dL Aspartate Amino Transf (AST/SGOT) 44 H 10-37 U/L Alanine Aminotransferase (ALT/SGPT) 15 12-78 U/L Alkaline Phosphatase 273 H 50-136 U/L Lactate Dehydrogenase 225 81-234 U/L Total Protein 5.3 L 6.0-8.3 g/dL Albumin 1.9 L 3.5-5.0 g/dL Urine Color YELLOW YELLOW Urine Appearance CLEAR CLEAR Urine pH 5.5 5.0-8.0 Urine Specific Mims 1.031 1.001-1.031 Urine Protein 20 H NEGATIVE mg/dL Urine Glucose (UA) NEGATIVE NEGATIVE mg/dL Urine Ketones 10 H NEGATIVE mg/dL Urine Occult Blood NEGATIVE NEGATIVE Urine Nitrate NEGATIVE NEGATIVE Urine Bilirubin NEGATIVE NEGATIVE mg/dL Urine Urobilinogen 2.0 H 0.2-1.0 mg/dL Urine Leukocyte Esterase NEGATIVE NEGATIVE Pattie/uL Urine RBC 0-1 0-1 /HPF Urine WBC 2-5 H 0-1 /HPF Urine Squamous Epithelial Cells RARE 0-2 /HPF Urine Bacteria None None Seen /HPF Urine Hyaline Casts 2-5 H 0-1 /LPF /LPF Urine Random Creatinine 153.77 H 30-135 mg/dL Urine Random Sodium < 13 L 40-220 mmol/l Lactic Acid Level 1.9 0.8-2.5 mmol/L Ammonia < 10 L 11-32 umol/L Troponin I High Sensitivity 5 4-75 ng/L C-Reactive Protein, Quantitative 41.80 H 0.5-3.0 mg/L Lipase 41 16-77 U/L Procalcitonin 0.18 0.05-0.5 ng/mL Thyroid Stimulating Hormone (TSH) 2.36 # 0.36-3.74 uIU/mL Erythrocyte Sedimentation Rate 30 H 0-20 MM/HR Prothrombin Time 14.4 H 9.6-11.6 SEC Prothromb Time International Ratio 1.41 H 0.85-1.15 Activated Partial Thromboplast Time 33.9 26.3-35.5 SEC Direct Bilirubin 1.5 H 0.0-0.3 mg/dL Current Medications Medications (Trade) Dose Ordered Sig/Ronak Route PRN Reason Start Time Stop Time Status Last Admin Dose Admin Acetaminophen (TYLenol 325MG TAB) 650 mg Q6H PRN PO MILD PAIN (1-3) 01/13/25 13:30 02/12/25 13:29 Albumin Human 50 ml @ 0 mls/hr Q6H IV 01/13/25 13:30 01/15/25 13:30 01/14/25 09:54 1 MLS/HR Ceftriaxone Sodium (Rocephin 2gm Inj) 2 gm DAILY IVPB 01/14/25 09:00 01/24/25 08:59 01/14/25 09:54 2 GM Ceftriaxone Sodium (Rocephin 2gm Inj) 2 gm ONCE STAT IVPB 01/13/25 09:47 01/13/25 09:49 DC 01/13/25 12:01 2 GM Ipratropium [place] (AtrovENT UD) 0.5 mg Q6H PRN IH SHORTNESS OF BREATH 01/13/25 13:30 02/12/25 13:29 Lactulose (Constulose 20gm/ 30ml Udcup) 20 gm BID PO 01/13/25 21:00 02/12/25 20:59 01/14/25 09:55 20 GM Metronidazole/ Sodium Chloride (flaGYL) 500 mg Q8H IV 01/13/25 17:30 01/23/25 17:29 01/14/25 09:54 500 MG Midodrine (PROAMatine 5 MG TABLET) 5 mg TID PO 01/13/25 14:00 02/12/25 13:59 01/14/25 09:55 5 MG Ondansetron HCl (zoFRAN 4MG INJ) 4 mg ONCE STAT IVP 01/13/25 09:47 01/13/25 09:49 DC 01/13/25 12:01 4 MG Ondansetron HCl (zoFRAN 4MG INJ) 4 mg Q6H PRN IVP NAUSEA/VOMITING 01/13/25 13:30 02/12/25 13:29 01/14/25 02:06 4 MG Pantoprazole Sodium (PROTonix 40MG INJ) 40 mg Q24H IVP 01/13/25 13:30 02/12/25 13:29 01/13/25 13:35 40 MG Thiamine HCl (Vitamin B-1) 100 mg DAILY IVP 01/14/25 09:00 02/13/25 08:59 01/14/25 09:56 100 MG Vitamin B Complex/ Vit C/Folic Acid (Nephrovite Tablet) 1 cap DAILY PO 01/14/25 09:00 02/13/25 08:59 01/14/25 09:55 1 CAP DIAGNOSTICS / RADIOLOGY: Signed PATIENT: CHAN GARDINER MR#: [id number] : 1970 SEX: M AGE: 54 LOCATION: [facility] ORDER 9 STATUS: REG ER REPORT#: [id number] SERVICE 8 REASON: sob ORDERING PHYSICIAN: RACHEL MAZARIEGOS MD PROCEDURE: CXR1VW - CHEST 1VW EXAM: CR Chest, 1 View. CLINICAL HISTORY: sob COMPARISON: Radiograph dated December 18, 2024 Findings: AP view of the chest is submitted. Large right pleural effusion with suggestion of a loculated component. Subjacent airspace disease may reflect atelectasis and/or an infectious/inflammatory process. The left lung is clear. No pneumothorax. Heart size and pulmonary vessels are within normal limits. IMPRESSION: 1. Large right pleural effusion with possible loculation. 2. Right lower lobe airspace disease, potentially atelectasis or pneumonia. 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, POA Recent history of TIPS procedure for recurrent large volume ascites, POA Compressive right lung atelectasis from large right-sided pleural effusion, POA Acute on chronic hyponatremia, hypervolemic, POA Sinus tachycardia, POA History of portal hypertensive gastropathy, POA History of gastritis, POA Prior history of alcohol use, quit alcohol three months ago, POA Anemia, POA Coagulopathy, mild, secondary to underlying liver cirrhosis, POA History of subcapsular hematoma of the right subhepatic space noted on abdominal CT from 12/2024, from TIPS postprocedure, POA PLAN: Acute on chronic hyponatremia, hypervolemic * Sodium trends 127>128>125 * Nephrology was consulted * Ordered cortisol a.m., osmolality urine, serum osmolality Tense/large volume ascites with decompensated alcoholic liver cirrhosis, Recent history of TIPS procedure for recurrent large volume ascites, * Paracentesis ordered and 4.7 L of fluid removed * Fluid culture, fluid cell count, body fluid culture and body fluid cell count ordered * Interventional radiology consulted for TIPS evaluation * CEA and AFP ordered Large right-sided pleural effusion with loculation, 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 * Started on Lasix 20 mg and spironolactone Anemia * Hemoglobin of 8.3 * Monitor hemoglobin * Ordered iron panel ATTESTATION BY PHYSICIAN I have seen and examined the patient. I reviewed the documentation, medical decision making, and treatment plan as noted by the resident physician above. I agree with the findings and plan of care. MAGALI KRAUSE MD, SYED M MD Jan 14, 2025 12:19
--- NOTE | 2025-01-14 12:20 | NUR ---
ULTRASOUND GUIDED RIGHT THORACENTESIS PROCEDURE PERFORMED BY DR. ALYCE MOLINA. PUNCTURE SITE RIGHT POSTERIOR BACK AND PATIENT TOLERATED PROCEDURE WELL. TOTAL REMOVED 4.7 LITERS OF PLEURAL FLUID. END OF PROCEDURE AT 1210. CATHETER REMOVED AND DRESSING APPLIED. NO BLEEDING NOTED. POST CHEST X-RAY TAKEN AND READ BY DR. ALYCE MOLINA. NO PNEUMOTHORAX SEEN. REPORT GIVEN TO ZHANNA KING LVN AND PATIENT TRANSPORTED BACK TO ROOM 408 VIA BED. AAO X3 WITH NO C/O PAIN. SPECIMEN SENT TO LAB.
--- NOTE | 2025-01-14 12:30 | NUR ---
RETURNED FOR THORA CENTESIS 4.7 L REMOVED STABLE COND.
--- NOTE | 2025-01-14 12:36 | PN ---
NEPHROLOGY PROGRESS NOTE Date/Time Patient Seen: Jan 14, 2025 SUBJECTIVE: This is a 54-year-old male history of alcoholic liver cirrhosis, history of portal hypertensive gastropathy, recurrent ascites, recent history of tips procedure by Dr. Molina in [facility] on 12/2024, chronic anemia, history of hyponatr emia, He presented to the ER for further evaluation of significant abdominal distention with associated nausea and vomiting. He was noted with hyponatremia We are consulted for hyponatremia Renal function is stable Sodium today mut219 mmoL/L, other electrolytes are stable S/p paracentesis with 4.7 L removed S/p thoracentesis. He was seen in the emergency room, in no acute distress No family at the bedside Prognosis remains guarded REVIEW OF SYSTEMS: GENERAL: Negative for any nausea, vomiting, fevers, chills, or weight loss. NEUROLOGIC: Negative for any blurry vision, blind spots, double vision, facial asymmetry, dysphagia, dysarthria, hemiparesis, hemisensory deficits, vertigo, ataxia. HEENT: Negative for any head trauma, neck trauma, neck stiffness, photophobia, phonophobia, sinusitis, rhinitis. CARDIAC: Negative for any chest pain, dyspnea on exertion, paroxysmal nocturnal dyspnea, peripheral edema. PULMONARY: Negative for any shortness of breath, wheezing, COPD, or TB exposure. GASTROINTESTINAL: Negative for any abdominal pain, nausea, vomiting, bright red blood per rectum, melena. GENITOURINARY: Negative for any dysuria, hematuria, incontinence. INTEGUMENTARY: Negative for any rashes, cuts, insect bites. RHEUMATOLOGIC: Negative for any joint pains, photosensitive rashes, history of vasculitis or kidney problems. HEMATOLOGIC: Negative for any abnormal bruising, frequent infections or bleeding. PHYSICAL EXAM: GENERAL: Alert and oriented x 3. No acute distress. Well-nourished. EYES: EOMI. Anicteric. HENT: Moist mucous membranes. No scleral icterus. No cervical lymphadenopathy. LUNGS: Clear to auscultation bilaterally. No accessory muscle use. CARDIOVASCULAR: Regular rate and rhythm. No murmur. No JVD. ABDOMEN: Soft, non-tender and non-distended. No palpable masses. EXTREMITIES: No edema. Non-tender. SKIN: No rashes or lesions. Warm. NEUROLOGIC: No focal neurological deficits. CN II-XII grossly intact, but not individually tested. PSYCHIATRIC: Cooperative. Appropriate mood and affect. LABORATORY: [ ] Hematology Labs: Test 01/14/25 05:25 01/13/25 09:27 Range/Units White Blood Count 9.8 4.8-10.8 K/uL Red Blood Count 2.53 L 4.50-6.20 MIL/uL Hemoglobin 8.3 L 14.0-18.0 g/dL Hematocrit 24.4 L 42-54 % Mean Corpuscular Volume 96.4 79-99 fL Mean Corpuscular Hemoglobin 32.8 27.0-33.0 pg Mean Corpuscular Hemoglobin Concent 34.0 32.0-36.0 g/dL Red Cell Distribution Width 21.8 H 11.0-15.5 % Platelet Count 126 L 130-400 K/uL Mean Platelet Volume 8.4 7.5-10.5 fL Immature Granulocyte % (Auto) 0.4 0-1 % Neutrophils (%) (Auto) 69.3 40.0-77.0 % Lymphocytes (%) (Auto) 18.6 L 21.0-51.0 % Monocytes (%) (Auto) 9.2 3.0-13.0 % Eosinophils (%) (Auto) 2.1 0.0-8.0 % Basophils (%) (Auto) 0.4 0.0-5.0 % Neutrophils # (Auto) 6.8 1.8-7.7 K/uL Lymphocytes # (Auto) 1.8 1.0-4.8 K/uL Monocytes # (Auto) 0.9 0.1-1.0 K/uL Eosinophils # (Auto) 0.21 0.00-0.70 K/uL Basophils # (Auto) 0.04 0.00-0.20 K/uL Absolute Immature Granulocyte (auto 0.04 0-1 K/uL Nucleated Red Blood Cells 0.0 0.0-0.19 % Erythrocyte Sedimentation Rate 30 H 0-20 MM/HR Chemistry Labs: Test 01/14/25 05:25 01/13/25 09:56 01/13/25 09:27 Range/Units Sodium Level 127 L 136-145 mmol/L Potassium Level 4.2 3.5-5.1 mmol/L Chloride Level 96 L 101-111 mmol/L Carbon Dioxide Level 28 21-32 mmol/L Blood Urea Nitrogen 15 7-18 mg/dL Creatinine 0.7 0.5-1.3 mg/dL Glomerular Filtration Rate Calc 111 >90 mL/min Random Glucose 93 70-105 mg/dL Total Calcium 7.1 L 8.5-10.1 mg/dL Magnesium Level 1.70 L 1.80-2.40 mg/dL Total Bilirubin 2.4 #H 0.2-1.0 mg/dL Aspartate Amino Transf (AST/SGOT) 44 H 10-37 U/L Alanine Aminotransferase (ALT/SGPT) 15 12-78 U/L Alkaline Phosphatase 273 H 50-136 U/L Lactate Dehydrogenase 225 81-234 U/L Total Protein 5.3 L 6.0-8.3 g/dL Albumin 1.9 L 3.5-5.0 g/dL Lactic Acid Level 1.9 0.8-2.5 mmol/L Ammonia < 10 L 11-32 umol/L Troponin I High Sensitivity 5 4-75 ng/L C-Reactive Protein, Quantitative 41.80 H 0.5-3.0 mg/L Lipase 41 16-77 U/L Procalcitonin 0.18 0.05-0.5 ng/mL Thyroid Stimulating Hormone (TSH) 2.36 # 0.36-3.74 uIU/mL Direct Bilirubin 1.5 H 0.0-0.3 mg/dL Coagulation Labs: Test 01/13/25 09:27 Range/Units Prothrombin Time 14.4 H 9.6-11.6 SEC Prothromb Time International Ratio 1.41 H 0.85-1.15 Activated Partial Thromboplast Time 33.9 26.3-35.5 [facility] / RADIOLOGY: [place] [address] [place] [address] IMAGING REPORT Signed PATIENT: CHAN GARDINER MR#: [id number] : 1970 SEX: M AGE: 54 LOCATION: [facility] ORDER 1304 STATUS: ADM IN REPORT#: [id number] SERVICE [id number] REASON: diagnotic and therapeutic paracentesis, cirrhosis,ascitic fluid to be sent ORDERING PHYSICIAN: CATRACHITA TENORIO MD PROCEDURE: PARA ABD - US ABDOMINAL PARACENTESIS IR US ABDOMINAL PARACENTESIS IR REASON: diagnotic and therapeutic paracentesis, cirrhosis,ascitic fluid to be sent TECHNIQUE: Paracentesis was performed with ultrasound guidance. The puncture site was selected in the Right lower quadrant and overlying skin prepped and draped in a sterile fashion. 1% Xylocaine infiltration was performed. Catheter was placed in the fluid using trocar technique. 4.7 L were removed. Fluid sample was submitted for laboratory evaluation. The patient showed no evidence of complication during the procedure. Patient tolerated procedure well. IMPRESSION: 1. Ultrasound-guided paracentesis. DICTATED BY: ALYCE MOLINA MD DATE: 01/14/25 1451 ELECTRONICALLY SIGNED BY: ALYCE MOLINA MD DATE: 01/14/25 1500 PATIENT: CHAN GARDINER MR#: [id number] : 1970 SEX: M AGE: 54 LOCATION: ED ORDER 7 STATUS: REG REPORT#: [id number] SERVICE [id number] REASON: vomiting and ascites ORDERING PHYSICIAN: RACHEL MAZARIEGOS MD PROCEDURE: ABD PELVWO - CT ABD/PEL WO CON RENAL/APPY EXAM: CT Abdomen and Pelvis Without IV Contrast CLINICAL HISTORY: Vomiting and ascites. TECHNIQUE: Axial computed tomography images of the abdomen and pelvis acquired without intravenous contrast. Dose optimization techniques applied. Total DLP: 408 mGy???cm. CONTRAST: No IV contrast administered. COMPARISON: Ultrasound Abdomen (US/SD) dated 12/29/2024, which demonstrated a large heterogeneous right hepatic lobe lesion (10.8 ??? 2.9 ??? 9.4 cm) superior to the TIPS tract, absent shunt flow suggesting possible TIPS occlusion or thrombosis, reduced portal vein flow, new ascites, and right pleural effusion with basal lung collapse. FINDINGS: LUNG BASES: Gross loculated right pleural collection measuring up to 7.0 cm in maximum thickness, causing compression atelectasis of the adjacent right lower lobe. No left-sided effusion or consolidation. LIVER: Cirrhotic morphology with coarse, nodular surface contour. An ill-defined, faintly heterogeneous hypodense lesion is noted in the right lobe of the liver along the lateral margin of the TIPS shunt, measuring approximately 5.0 ??? 4.8 cm. This lesion may represent a residual or evolving hematoma or post-procedural collection; however, further characterization requires contrast-enhanced imaging. No other discrete enhancing lesion is seen within the limitations of the non-contrast study. TIPS SHUNT: TIPS shunt visualized between the right portal and hepatic veins. Assessment of shunt patency is limited on non-contrast imaging. No displacement or gross thrombosis evident. GALLBLADDER AND BILE DUCTS: Gallbladder normal in size and wall thickness. No cholelithiasis or biliary dilatation. PANCREAS: Normal in size and attenuation. SPLEEN: Normal in size and homogeneous attenuation. ADRENAL GLANDS: Unremarkable. KIDNEYS, URETERS, AND BLADDER: Normal cortical thickness and attenuation. No hydronephrosis or calculi. Urinary bladder normal. STOMACH AND BOWEL: Non-dilated bowel loops with preserved mural thickness. No obstruction or perforation. APPENDIX: Normal in caliber. No periappendiceal inflammation. PERITONEUM: Gross ascites throughout the abdomen and pelvis. No free air. LYMPH NODES: No abnormally enlarged mesenteric or retroperitoneal lymph nodes. REPRODUCTIVE ORGANS: Within normal limits as visualized. VASCULATURE: Major abdominal vessels are patent. No aneurysm or thrombosis. BONES AND SOFT TISSUES: No acute osseous or soft tissue abnormality.IMPRESSION: 1. Ill-defined, hypodense right hepatic lobe lesion (5.0 x 4.8 cm) along the lateral margin of the TIPS shunt, reduced in size from prior ultrasound. Indeterminate on non-contrast study; contrast-enhanced CT or MRI recommended for further characterization. 2. Large loculated right pleural effusion (7.0 cm maximum thickness) with compression atelectasis of the adjacent right lower lobe. 3. Cirrhotic liver morphology with gross ascites throughout the abdomen and pelvis. 4. TIPS shunt in situ between right portal and hepatic veins; patency indeterminate without contrast. 5. No other acute intra-abdominal or pelvic abnormalities detected within the limitations of non-contrast imaging. 6. Compared with the prior abdominal ultrasound dated 12/29/2024, the previously described heterogeneous right hepatic lesion (10.8 ??? 2.9 ??? 9.4 cm) has reduced in size to approximately 5.0 ??? 4.8 cm, now appearing ill-defined and hypodense. Persistent ascites and new organization of the right pleural fluid into a loculated collection (7 cm) with lower lobe atelectasis are noted. The TIPS shunt remains in position; however, shunt patency cannot be reassessed without contrast or Doppler evaluation. No new hepatic or extrahepatic lesion identified. /[place] DICTATED BY: TYRONE NOLEN MD DATE: 01/13/251303 ELECTRONICALLY SIGNED BY: TYRONE NOLEN MD DATE: 01/13/251303 PATIENT: CHAN GARDINER MR#: [id number] : 1970 SEX: M AGE: 54 LOCATION: [facility] ORDER 9 STATUS: REG REPORT#: [id number] SERVICE 8 REASON: sob ORDERING PHYSICIAN: RACHEL MAZARIEGOS MD PROCEDURE: CXR1VW - CHEST 1VW EXAM: CR Chest, 1 View. CLINICAL HISTORY: sob COMPARISON: Radiograph dated December 18, 2024 Findings: AP view of the chest is submitted. Large right pleural effusion with suggestion of a loculated component. Subjacent airspace disease may reflect atelectasis and/or an infectious/inflammatory process. The left lung is clear. No pneumothorax. Heart size and pulmonary vessels are within normal limits. IMPRESSION: 1. Large right pleural effusion with possible loculation. 2. Right lower lobe airspace disease, potentially atelectasis or pneumonia. /[place] DICTATED BY: MARIANN HOWARD Jr., MD DATE: 01/13/251302 ELECTRONICALLY SIGNED BY: MARIANN HOWARD Jr., MD DATE: 01/13/251302 ASSESSMENT: Hyponatremia Ascites patient has cirrhosis of liver with alcohol abuse before Large right-sided pleural effusion Sinus tachycardia, POA History of portal hypertensive gastropathy, POA History of gastritis, POA Prior history of alcohol use, quit alcohol three months ago, POA Anemia, POA PLAN: Labs, diagnostic, radiologic exams reviewed and interpreted by myself and supervising physician. We have reviewed external records in detail Fluid restriction is advised Require close monitoring of renal function and electrolytes Order CBC, CMP,electrolytes in am BiPAP as necessary, for respiratory distress Monitor blood pressure adjust medication doses as needed Avoid hypotensive episodes May use Dilaudid 0.5 mg IV every 6 hours as needed for severe pain Monitor blood sugars Strict intake, output, and daily weight should be monitored Please renally adjust medications Avoid nephrotoxic and nonsteroidal drugs Avoid contrast if possible Will continue to monitor renal function, anemia, electrolytes Treatment plan discussed with patient Questions were answered We have discussed with the other team physicians in detail about the care plan We will continue to monitor the patient closely ATTESTATION BY PHYSICIAN I have seen and examined the patient. I reviewed the documentation, medical decision making, and treatment plan as noted by the mid-level provider above. I agree with the findings and plan of care. HARJINDER CORTÉS MD, [facility] Jan 14, 2025 12:36
[2025-01-14 14:27] LABS: GLUCOSE PLEURAL FLUID 97
[2025-01-14 14:28] LABS: PROTEIN PLEURAL FLUID 1.8 mg/dL
--- NOTE | 2025-01-14 14:30 | NUR ---
ULTRASOUND GUIDED PARACENTESIS PROCEDURE PERFORMED BY DR. ALYCE MOLINA. PUNCTURE SITE RLQ AND PATIENT TOLERATED PROCEDURE WELL. TOTAL REMOVED 4.7 LITERS OF ASCITES FLUID. END OF PROCEDURE AT 1415. CATHETER REMOVED AND DRESSING APPLIED. NO BLEEDING NOTED. REPORT GIVEN TO ZHANNA KING LVN AND PATIENT TRANSPORTED BACK TO ROOM 408 VIA BED. AAO X3 WITH NO C/O PAIN. SPECIMEN SENT TO LAB.
[2025-01-14 14:40] LABS: BODY FLUID RBC 4981 /cu. mm.; BODY FLUID WBC 268 /cu. mm.
--- NOTE | 2025-01-14 14:47 | NUR ---
returned from paracentesis 4.7 l removed stable cond
--- NOTE | 2025-01-14 15:00 | HMCIMG ---
US ABDOMINAL PARACENTESIS IR REASON: diagnotic and therapeutic paracentesis, cirrhosis,ascitic fluid to be sent TECHNIQUE: Paracentesis was performed with ultrasound guidance. The puncture site was selected in the Right lower quadrant and overlying skin prepped and draped in a sterile fashion. 1% Xylocaine infiltration was performed. Catheter was placed in the fluid using trocar technique. 4.7 L were removed. Fluid sample was submitted for laboratory evaluation. The patient showed no evidence of complication during the procedure. Patient tolerated procedure well. IMPRESSION: 1. Ultrasound-guided paracentesis.
[2025-01-14 16:22] LABS: APPEARANCE BODY FLUID SLIGHTLY CLOUDY (CLEAR); COLOR,BODY FLUID YELLOW (LT YELLOW); PH PLEURAL FLUID 8; SPECIMENTYPE,BODY FLUID PLEURAL; TOTAL VOLUME,BODY FLUID 4700 mL
[2025-01-14 16:36] LABS: BF LYMPHOCYTE 38 %; BF MACROPHAGE 15; BF MESOTHELIAL 11 %; BF MONOCYTE 21 %; BF NEUTROPHIL 15.0 %; BF TOTAL CELLS COUNTED 100
[2025-01-14 20:19] LABS: ALBUMIN,BODY FLUID 0.6 g/dL
[2025-01-14 20:37] LABS: BODY FLUID RBC 4977 /cu. mm.; BODY FLUID WBC 199 /cu. mm.
[2025-01-14 20:44] LABS: APPEARANCE BODY FLUID SLIGHTLY CLOUDY (CLEAR); COLOR,BODY FLUID YELLOW (LT YELLOW); SPECIMENTYPE,BODY FLUID ASCITES; TOTAL VOLUME,BODY FLUID 4700 mL
[2025-01-14 20:48] LABS: BF LYMPHOCYTE 50 %; BF MACROPHAGE 7; BF MESOTHELIAL 5 %; BF MONOCYTE 18 %; BF NEUTROPHIL 20.0 %; BF TOTAL CELLS COUNTED 100
[2025-01-15] VITALS (8 sets, daily range): BP systolic 100–122; BP diastolic 61–75; PULSE 107–117; RESP 16–18; TEMP 98.2–98.7; O2SAT 94–97
[2025-01-15 05:05] LABS: IMMATURE GRANULOCYTE ABSOLUTE 0.05 K/uL (0-1); NUCLEATED RED BLOOD CELLS 0.0 % (0.0-0.19); PLATELET COUNT (AUTO) 89 K/uL (130-400); RED BLOOD CELL COUNT(AUTO) 2.41 MIL/uL (4.50-6.20); RED CELL DISTRIBUTION WIDTH 20.9 % (11.0-15.5); WHITE BLOOD COUNT (AUTO) 9.0 K/uL (4.8-10.8)
[2025-01-15 05:32] LABS: % IRON SATURATION 82.9 % (30-44); IRON, SERUM 34.0 mcg/dL (65-175)
[2025-01-15 05:40] LABS: ASPARTATE AMINOTRANSFERASE 42.0 U/L (10-37); CREATININE 0.8 mg/dL (0.5-1.3); GLOMERULAR FILTR. RATE CALC 106.0 mL/min (>90); GLUCOSE,RANDOM 120.0 mg/dL (70-105); SODIUM SERUM 125.0 mmol/L (136-145); TOTAL PROTEIN, SERUM 5.0 g/dL (6.0-8.3); UREA NITROGEN, BLOOD 11.0 mg/dL (7-18)
--- NOTE | 2025-01-15 07:24 | HMCIMG ---
EXAM: CR Chest, 1 View. CLINICAL HISTORY: Post thoracocentesis COMPARISON: CR chest dated 01/13/2025 FINDINGS: Status post thoracocentesis. LUNGS AND PLEURAL SPACES: No pneumothorax. Slight interval improvement in the right moderate pleural effusion with adjacent lung atelectasis. The rest of the lungs are clear. MEDIASTINUM: The cardiomediastinal silhouette is within normal limits. BONES: No aggressive appearing osseous lesion seen. IMPRESSION: 1. Slight interval improvement in right moderate pleural effusion with adjacent lung atelectasis. 2. No acute pulmonary findings. /[place]
--- NOTE | 2025-01-15 08:14 | HMCIMG ---
EXAM: UPPER EXTREMITY VENOUS ULTRASOUND, BILATERAL (LIMITED) Technique: Real-time grayscale ultrasound with color and spectral Doppler of the bilateral upper extremity venous system, including compression maneuvers where technically feasible. Contrast: No intravenous contrast administered. Clinical Information: Rule out thromboembolism Comparison: None. Findings: Bilateral upper extremity venous system: Bilateral subclavian, axillary, brachial, basilic, cephalic, radial, and ulnar veins are patent without intraluminal thrombus; veins are compressible where accessible with normal color Doppler flow. Impression: No deep venous thrombosis identified in the evaluated bilateral upper extremity veins. No superficial venous thrombosis identified. /[place]
[2025-01-15] MEDS: SPIRONOLACTONE 25 MG TAB PO SCH (09:16)
--- NOTE | 2025-01-15 10:42 | PN ---
[facility] PROGRESS NOTE Date Patient Seen: Jan 15, 2025 Time of Visit: 10:41 Supervising Physician: Dr. Taran Morgan Primary Care Physician: [Dr. Miko Moya] Outpatient Specialists: [ ] Inpatient Consults: [[facility] team-jose martin, Dr. Gallo-nephro PROBLEM LIST: Loculated right pleural effusion, large-POA Ascites with recurrent paracentesis-POA Alcoholic liver cirrhosis-POA: Child-santizo score=11 points: Child class C with life expectancy 1-3 years; MELD-Na score- 24 points=14-15% est 90-day mortality Acute on chronic hyponatremia-POA Hepatic transaminitis-POA Hyperbilirubinemia-POA Mild leukocytosis-POA Right lobe liver lesion-POA Hypoalbuminemia-POA CHRONIC PROBLEM LIST: Primary hypertension Hyperlipidemia S/p TIPS placement 12/2024 History of portal hypertensive gastropathy History of gastritis Prior history of alcohol and nicotine use, quit alcohol three months ago Anemia Coagulopathy, mild, secondary to underlying liver cirrhosis History of subcapsular hematoma of the right subhepatic space noted on abdominal CT from 12/2024, from TIPS postprocedure PLAN: Supplemental oxygen as needed PT currently on room air Antibiotics: Ceftriaxone and Flagyl IV s/p IR thoracentesis, 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 labs INTERVAL HISTORY: [Per hospitalist's notes: "54-year-old malen history of alcoholic liver cirrhosis, history of portal hypertensive gastropathy, recurrent ascites, recent history of tips procedure by Dr. Yoder in [facility] [place] on 12/2024, chronic anemia, history of hyponatremia, presented to the ER for further evaluation of significant abdominal distention with associated nausea and vomiting. Patient reports that he has been having significant abdominal distention since discharge from the hospital on 12/31/2024., patient was previously hospitalized in [facility] [place] on 12/15/2024 and had an extended hospital stay if where he underwent tips pl acement for recurrent large volume ascites. Patient states that he has been trying to be compliant with his home medications. He remains on lactulose, midodrine at home. Unsure if patient has had compliance with oral diuretics as outpatient. Patient did not bring any of his home medications today to the ER. Also reports having significant abdominal pain due to progressive distention of the abdomen, currently rates the pain as 8/10 in severity. Oral intake has been poor due to abdominal distention.Patient reports that he gets short of breath with minimal activity. Denies any cough. Denies any pleurisy. Denies any recent history of hematochezia or melena." BIS team was consulted for loculated pleural effusion per CT report. [employer] services provided by Andrea [place]: Patient claims that he just recently had a paracentesis last Friday equivalent to 4.5 L fluid drained. Despite this, he still continues to experience shortness of breath that is worse on exertion. Yesterday, he came up here in the ER but was eventually sent home because he was told that nobody was available to tap him. He continues to have abdominal distention and pain with pain scale of 10/10. He claimed that he was doing well after his tips placement. Otherwise, he denies other constitutional symptoms. On my assessment, patient is currently on room air saturating 95-96%. He endorses a pain scale of 3/10. Abdomen is mildly soft but without board-like rigidity, BNP he has 3+ pitting edema. Patient is not encephalopathic. Goals of care was discussed with the patient verbalizing understanding and agreement. We will continue to follow along patient's response to treatment. On behalf of BIS team, thank you for allowing us to participate in Mr. German's care. 01/14 - patient is seen and evaluated at the bedside. Patient is sitting up in bed with no signs of acute distress. Patient remains on room air and denies chest discomfort, chest pain or dyspnea. Patient does admit minimal dyspnea with exertion however while at rest he is perfectly fine. No acute changes reported overnight. Patient does continue with abdominal distention. Recommend IR for right thoracentesis. Send pleural fluid for analysis. Patient is scheduled for a paracentesis today. Recommend continue Rocephin for SBP. Patient had abdominal ultrasound shows cirrhotic liver morphology with ascites. Patient's tips with peak systolic velocities proximal mid and distal are 95, 167 and 131 CMS/S. We will continue to follow up with you. Patient reports a recent paracentesis last Friday with 4.5 L removed. Patient may require restarting Lasix and spironolactone if ascites persists 01/15-Examined and assess patient is resting in bed in a high Boyce's position awake, alert, and oriented with no family members nor friends present, as well as in no acute distress. Accompanied by patient's bedside nurse. Reviewed and discussed with patient laboratory results, vital signs, and diagnostic procedures. 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 Location of liver side is a factor to where there is more fluid migrating to the right lower lobe area of the patient. After discussing this with the patient there are questions or concerns. Hemodynamically stable. Afebrile. A.m. labs ordered. Patient denies shortness or breath, fever, chills, nauseousness and constipation currently.. REVIEW OF SYSTEMS: 12 point ROS reviewed with patient. Pertinent positives mentioned above. Otherwise negative. PHYSICAL EXAM: GENERAL: alert, weak, awake oriented x 3 HEENT: EOMI, Sclera non icteric, moist mucosa NECK: Supple, no JVD, trachea midline LUNGS: Clear breath sounds bilaterally. No wheezes HEART: Regular rate and rhythm. Normal S1 and S2, without murmurs Tachycardia ABD: Abdomen semi-firm, nontender. Bowel sounds present EXT: No clubbing cyanosis, 3+ pittind edema on BLE NEURO: Alert and oriented to person, follows commands Vital Signs (last 8hr) Date Time Temp Pulse Resp B/P (MAP) Pulse Ox O2 Delivery O2 Flow Rate FiO2 01/15/25 08:00 98.2 108 16 117/73 96 Room Air 21 01/15/25 07:00 97 Room Air* 0 21 01/15/25 04:00 98.2 111 18 107/67 95 Room Air LABS: Hematology Labs: Test 01/15/25 04:31 Range/Units White Blood Count 9.0 4.8-10.8 K/uL Red Blood Count 2.41 L 4.50-6.20 MIL/uL Hemoglobin 8.0 L 14.0-18.0 g/dL Hematocrit 23.6 L 42-54 % Mean Corpuscular Volume 97.9 79-99 fL Mean Corpuscular Hemoglobin 33.2 H 27.0-33.0 pg Mean Corpuscular Hemoglobin Concent 33.9 32.0-36.0 g/dL Red Cell Distribution Width 20.9 H 11.0-15.5 % Platelet Count 89 #L 130-400 K/uL Mean Platelet Volume 8.3 7.5-10.5 fL Immature Granulocyte % (Auto) 0.6 0-1 % Neutrophils (%) (Auto) 66.9 40.0-77.0 % Lymphocytes (%) (Auto) 20.6 L 21.0-51.0 % Monocytes (%) (Auto) 9.6 3.0-13.0 % Eosinophils (%) (Auto) 2.0 0.0-8.0 % Basophils (%) (Auto) 0.3 0.0-5.0 % Neutrophils # (Auto) 6.0 1.8-7.7 K/uL Lymphocytes # (Auto) 1.9 1.0-4.8 K/uL Monocytes # (Auto) 0.9 0.1-1.0 K/uL Eosinophils # (Auto) 0.18 0.00-0.70 K/uL Basophils # (Auto) 0.03 0.00-0.20 K/uL Absolute Immature Granulocyte (auto 0.05 0-1 K/uL Nucleated Red Blood Cells 0.0 0.0-0.19 % Chemistry Labs: Test 01/15/25 04:31 01/14/25 07:40 01/14/25 05:25 Range/Units Sodium Level 125 L 136-145 mmol/L Potassium Level 3.8 3.5-5.1 mmol/L Chloride Level 95 L 101-111 mmol/L Carbon Dioxide Level 25 21-32 mmol/L Blood Urea Nitrogen 11 7-18 mg/dL Creatinine 0.8 0.5-1.3 mg/dL Glomerular Filtration Rate Calc 106 >90 mL/min Random Glucose 120 H 70-105 mg/dL Uric Acid 4.6 2.6-7.2 mg/dL Total Calcium 7.0 L 8.5-10.1 mg/dL Magnesium Level 1.70 L 1.80-2.40 mg/dL Iron Level 34 #L 65-175 mcg/dL Total Iron Binding Capacity 41 L 250-450 mcg/dL Percent Iron Saturation 82.9 H 30-44 % Ferritin 192 30-400 ng/mL Total Bilirubin 1.4 #H 0.2-1.0 mg/dL Aspartate Amino Transf (AST/SGOT) 42 H 10-37 U/L Alanine Aminotransferase (ALT/SGPT) 15 12-78 U/L Alkaline Phosphatase 287 H 50-136 U/L Total Protein 5.0 L 6.0-8.3 g/dL Albumin 2.1 L 3.5-5.0 g/dL Tumor Marker Alpha Fetoprotein 2.1 0.0-8.4 ng/mL Carcinoembryonic Antigen 4.8 H 0.0-4.7 ng/mL CA 19-9 Antigen 2 0-35 U/mL Lactate Dehydrogenase 225 81-234 U/L DIAGNOSTICS / RADIOLOGY RESULTS: [ ] PLAN NEURO: Minimize central acting medications as possible. Maintain fall precautions, adequate lighting during the day PULMONARY: Supplemental 02 as needed. Maintain aspiration precautions at all times CARDIOVASCULAR: Follow hemodynamics. Vital signs per facility protocol GI & NUTRITION: Continue with nutritional support. Continue stool softeners and laxatives as needed. KIDNEYS & ELECTROLYTES: Strict monitoring of intake, output and overall fluid balance. Avoid nephrotoxic medications to the extent possible. Medications to be dosed according to renal function. Monitor electrolytes and replace as needed ENDOCRINE: Maintain blood glucose between 100-180 at all times. Hypoglycemia protocol in place INFECTIOUS DISEASE: Trend temperature, WBC and procalcitonin level Follow cultures, deescalate antibiotics as soon as possible. Panculture if new onset fever ONCOLOGY/HEMATOLOGY/COAGULATION: Monitor for s/s of bleeding Monitor hemoglobin, coagulation studies as needed SKIN: Pressure ulcer prevention per facility protocol Specialty mattress ORTHO/REHAB: Continue PT/OT Prophylaxis: Continue GI and DVT prophylaxis Code Status: Full Resuscitation Disposition: As per attending. FIORELLA [facility] Jan 15, 2025 10:42
--- NOTE | 2025-01-15 12:52 | PN ---
NEPHROLOGY PROGRESS NOTE Date/Time Patient Seen: Jan 15, 2025 SUBJECTIVE: This is a 54-year-old male history of alcoholic liver cirrhosis, history of portal hypertensive gastropathy, recurrent ascites, recent history of tips procedure by Dr. Molina in [facility] [place], chronic anemia, history of hyponatr emia, He presented to the ER for further evaluation of significant abdominal distention with associated nausea and vomiting. S/p paracentesis with 4.7 L removed He has been started on Lasix and spironolactone. He was noted with hyponatremia We are consulted for hyponatremia Renal function is stable Sodium today [id number] mmoL/L, other electrolytes are stable Uric acid and urine studies were noted He continues on fluid restriction He was seen in the medical floor, in no acute distress No family at the bedside Prognosis remains guarded REVIEW OF SYSTEMS: GENERAL: Negative for any nausea, vomiting, fevers, chills, or weight loss. NEUROLOGIC: Negative for any blurry vision, blind spots, double vision, facial asymmetry, dysphagia, dysarthria, hemiparesis, hemisensory deficits, vertigo, ataxia. HEENT: Negative for any head trauma, neck trauma, neck stiffness, photophobia, phonophobia, sinusitis, rhinitis. CARDIAC: Negative for any chest pain, dyspnea on exertion, paroxysmal nocturnal dyspnea, peripheral edema. PULMONARY: Negative for any shortness of breath, wheezing, COPD, or TB exposure. GASTROINTESTINAL: Negative for any abdominal pain, nausea, vomiting, bright red blood per rectum, melena. GENITOURINARY: Negative for any dysuria, hematuria, incontinence. INTEGUMENTARY: Negative for any rashes, cuts, insect bites. RHEUMATOLOGIC: Negative for any joint pains, photosensitive rashes, history of vasculitis or kidney problems. HEMATOLOGIC: Negative for any abnormal bruising, frequent infections or bleeding. Vital Signs (last 8hr) Date Time Temp Pulse Resp B/P (MAP) Pulse Ox O2 Delivery O2 Flow Rate FiO2 01/15/25 08:00 98.2 108 16 117/73 96 Room Air 21 01/15/25 07:00 97 Room Air* 0 21 PHYSICAL EXAM: GENERAL: Alert and oriented x 3. No acute distress. Well-nourished. EYES: EOMI. Anicteric. HENT: Moist mucous membranes. No scleral icterus. No cervical lymphadenopathy. LUNGS: Clear to auscultation bilaterally. No accessory muscle use. CARDIOVASCULAR: Regular rate and rhythm. No murmur. No JVD. ABDOMEN: Soft, non-tender and non-distended. No palpable masses. EXTREMITIES: No edema. Non-tender. SKIN: No rashes or lesions. Warm. NEUROLOGIC: No focal neurological deficits. CN II-XII grossly intact, but not individually tested. PSYCHIATRIC: Cooperative. Appropriate mood and affect. Current Medications Medications (Trade) Dose Ordered Sig/Ronak Route Start Time Stop Time Status Last Admin Dose Admin Albumin Human 50 ml @ 0 mls/hr Q6H IV 01/13/25 13:30 01/15/25 13:30 01/15/25 06:20 50 MLS/HR Ceftriaxone Sodium (Rocephin 2gm Inj) 2 gm DAILY IVPB 01/14/25 09:00 01/24/25 08:59 01/15/25 09:16 2 GM Ceftriaxone Sodium (Rocephin 2gm Inj) 2 gm ONCE STAT IVPB 01/13/25 09:47 01/13/25 09:49 DC 01/13/25 12:01 2 GM Enoxaparin Sodium (Lovenox) 40 mg DAILY SQ 01/16/25 09:00 02/15/25 08:59 Future Hold Furosemide (LASix 20MG TAB) 20 mg DAILY PO 01/15/25 09:00 01/15/25 11:41 DC 01/15/25 09:17 20 MG Furosemide (LASix 40MG TAB) 40 mg DAILY PO 01/16/25 09:00 02/15/25 08:59 Lactulose (Constulose 20gm/ 30ml Udcup) 20 gm BID PO 01/13/25 21:00 02/12/25 20:59 01/15/25 09:25 20 GM Metronidazole/ Sodium Chloride (flaGYL) 500 mg Q8H IV 01/13/25 17:30 01/15/25 11:41 DC 01/15/25 10:36 500 MG Midodrine (PROAMatine 5 MG TABLET) 5 mg TID PO 01/13/25 14:00 02/12/25 13:59 01/15/25 09:23 5 MG Ondansetron HCl (zoFRAN 4MG INJ) 4 mg ONCE STAT IVP 01/13/25 09:47 01/13/25 09:49 DC 01/13/25 12:01 4 MG Pantoprazole Sodium (PROTonix 40MG INJ) 40 mg Q24H IVP 01/13/25 13:30 02/12/25 13:29 01/14/25 14:53 40 MG Spironolactone (Aldactone 25mg) 50 mg DAILY PO 01/15/25 09:00 01/15/25 11:41 DC 01/15/25 09:16 50 MG Spironolactone (Aldactone 25mg) 100 mg DAILY PO 01/16/25 09:00 02/15/25 08:59 Thiamine HCl (Vitamin B-1) 100 mg DAILY IVP 01/14/25 09:00 02/13/25 08:59 01/15/25 09:17 100 MG Vitamin B Complex/ Vit C/Folic Acid (Nephrovite Tablet) 1 cap DAILY PO 01/14/25 09:00 02/13/25 08:59 01/15/25 09:16 1 CAP LABORATORY: [ ] Hematology Labs: Test 01/15/25 04:31 Range/Units White Blood Count 9.0 4.8-10.8 K/uL Red Blood Count 2.41 L 4.50-6.20 MIL/uL Hemoglobin 8.0 L 14.0-18.0 g/dL Hematocrit 23.6 L 42-54 % Mean Corpuscular Volume 97.9 79-99 fL Mean Corpuscular Hemoglobin 33.2 H 27.0-33.0 pg Mean Corpuscular Hemoglobin Concent 33.9 32.0-36.0 g/dL Red Cell Distribution Width 20.9 H 11.0-15.5 % Platelet Count 89 #L 130-400 K/uL Mean Platelet Volume 8.3 7.5-10.5 fL Immature Granulocyte % (Auto) 0.6 0-1 % Neutrophils (%) (Auto) 66.9 40.0-77.0 % Lymphocytes (%) (Auto) 20.6 L 21.0-51.0 % Monocytes (%) (Auto) 9.6 3.0-13.0 % Eosinophils (%) (Auto) 2.0 0.0-8.0 % Basophils (%) (Auto) 0.3 0.0-5.0 % Neutrophils # (Auto) 6.0 1.8-7.7 K/uL Lymphocytes # (Auto) 1.9 1.0-4.8 K/uL Monocytes # (Auto) 0.9 0.1-1.0 K/uL Eosinophils # (Auto) 0.18 0.00-0.70 K/uL Basophils # (Auto) 0.03 0.00-0.20 K/uL Absolute Immature Granulocyte (auto 0.05 0-1 K/uL Nucleated Red Blood Cells 0.0 0.0-0.19 % Chemistry Labs: Test 01/15/25 04:31 01/14/25 07:40 01/14/25 05:25 Range/Units Sodium Level 125 L 136-145 mmol/L Potassium Level 3.8 3.5-5.1 mmol/L Chloride Level 95 L 101-111 mmol/L Carbon Dioxide Level 25 21-32 mmol/L Blood Urea Nitrogen 11 7-18 mg/dL Creatinine 0.8 0.5-1.3 mg/dL Glomerular Filtration Rate Calc 106 >90 mL/min Random Glucose 120 H 70-105 mg/dL Uric Acid 4.6 2.6-7.2 mg/dL Total Calcium 7.0 L 8.5-10.1 mg/dL Magnesium Level 1.70 L 1.80-2.40 mg/dL Iron Level 34 #L 65-175 mcg/dL Total Iron Binding Capacity 41 L 250-450 mcg/dL Percent Iron Saturation 82.9 H 30-44 % Ferritin 192 30-400 ng/mL Total Bilirubin 1.4 #H 0.2-1.0 mg/dL Aspartate Amino Transf (AST/SGOT) 42 H 10-37 U/L Alanine Aminotransferase (ALT/SGPT) 15 12-78 U/L Alkaline Phosphatase 287 H 50-136 U/L Total Protein 5.0 L 6.0-8.3 g/dL Albumin 2.1 L 3.5-5.0 g/dL Tumor Marker Alpha Fetoprotein 2.1 0.0-8.4 ng/mL Carcinoembryonic Antigen 4.8 H 0.0-4.7 ng/mL CA 19-9 Antigen 2 0-35 U/mL Lactate Dehydrogenase 225 81-234 U/L DIAGNOSTICS / RADIOLOGY: [place] [address] [place] [id number] IMAGING REPORT Signed PATIENT: CHAN GARDINER MR#: [id number] : 1970 SEX: M AGE: 54 LOCATION: [facility] ORDER [id number] STATUS: ADM IN REPORT#: [id number] SERVICE 1100 REASON: POST RT THORACENTESIS ORDERING PHYSICIAN: ALYCE MOLINA MD PROCEDURE: CXR1VW - CHEST 1VW EXAM: CR Chest, 1 View. CLINICAL HISTORY: Post thoracocentesis COMPARISON: CR chest dated 01/13/2025 FINDINGS: Status post thoracocentesis. LUNGS AND PLEURAL SPACES: No pneumothorax. Slight interval improvement in the right moderate pleural effusion with adjacent lung atelectasis. The rest of the lungs are clear. MEDIASTINUM: The cardiomediastinal silhouette is within normal limits. BONES: No aggressive appearing osseous lesion seen. IMPRESSION: 1. Slight interval improvement in right moderate pleural effusion with adjacent lung atelectasis. 2. No acute pulmonary findings. /[facility] DICTATED BY: MARIANN HOWARD Jr., MD DATE: 01/15/25822 ELECTRONICALLY SIGNED BY: MARIANN HOWARD Jr., MD DATE: 01/15/25822 PATIENT: CHAN GARDINER MR#: [id number] : 1970 SEX: M AGE: 54 LOCATION: [facility] ORDER 1031 STATUS: ADM IN REPORT#: [id number] SERVICE 1028 REASON: Rule out thromboembolism ORDERING PHYSICIAN: MANUEL TRUJILLO MD PROCEDURE: VENOUS RAYNA - US VENOUS DOPPLER BILATERAL EXAM: UPPER EXTREMITY VENOUS ULTRASOUND, BILATERAL (LIMITED) Technique: Real-time grayscale ultrasound with color and spectral Doppler of the bilateral upper extremity venous system, including compression maneuvers where technically feasible. Contrast: No intravenous contrast administered. Clinical Information: Rule out thromboembolism Comparison: None. Findings: Bilateral upper extremity venous system: Bilateral subclavian, axillary, brachial, basilic, cephalic, radial, and ulnar veins are patent without intraluminal thrombus; veins are compressible where accessible with normal color Doppler flow. Impression: No deep venous thrombosis identified in the evaluated bilateral upper extremity veins. No superficial venous thrombosis identified. /[facility] DICTATED BY: TYRONE NOLEN MD DATE: 01/15/25912 ELECTRONICALLY SIGNED BY: TYRONE NOLEN MD DATE: 01/15/25912 PATIENT: CHAN GARDINER MR#: [id number] : 1970 SEX: M AGE: 54 LOCATION: [facility] ORDER 1304 STATUS: ADM IN REPORT#: [id number] SERVICE 08 REASON: diagnotic and therapeutic paracentesis, cirrhosis,ascitic fluid to be sent ORDERING PHYSICIAN: CATRACHITA TENORIO MD PROCEDURE: PARA ABD - US ABDOMINAL PARACENTESIS IR US ABDOMINAL PARACENTESIS IR REASON: diagnotic and therapeutic paracentesis, cirrhosis,ascitic fluid to be sent TECHNIQUE: Paracentesis was performed with ultrasound guidance. The puncture site was selected in the Right lower quadrant and overlying skin prepped and draped in a sterile fashion. 1% Xylocaine infiltration was performed. Catheter was placed in the fluid using trocar technique. 4.7 L were removed. Fluid sample was submitted for laboratory evaluation. The patient showed no evidence of complication during the procedure. Patient tolerated procedure well. IMPRESSION: 1. Ultrasound-guided paracentesis. DICTATED BY: ALYCE MOLINA MD DATE: 01/14/251450 ELECTRONICALLY SIGNED BY: ALYCE MOLINA MD DATE: 01/14/25 1500 PATIENT: CHAN GARDINER MR#: [id number] : 1970 SEX: M AGE: 54 LOCATION: [facility] ORDER 1304 STATUS: ADM IN REPORT#: [id number] SERVICE 08 REASON: diagnotic and therapeutic paracentesis, cirrhosis,ascitic fluid to be sent ORDERING PHYSICIAN: CATRACHITA TENORIO MD PROCEDURE: PARA ABD - US ABDOMINAL PARACENTESIS IR US ABDOMINAL PARACENTESIS IR REASON: diagnotic and therapeutic paracentesis, cirrhosis,ascitic fluid to be sent TECHNIQUE: Paracentesis was performed with ultrasound guidance. The puncture site was selected in the Right lower quadrant and overlying skin prepped and draped in a sterile fashion. 1% Xylocaine infiltration was performed. Catheter was placed in the fluid using trocar technique. 4.7 L were removed. Fluid sample was submitted for laboratory evaluation. The patient showed no evidence of complication during the procedure. Patient tolerated procedure well. IMPRESSION: 1. Ultrasound-guided paracentesis. DICTATED BY: ALYCE MOLINA MD DATE: 01/14/25 1451 ELECTRONICALLY SIGNED BY: ALYCE MOLINA MD DATE: 01/14/25 1500 PATIENT: CHAN GARDINER MR#: [id number] : 1970 SEX: M AGE: 54 LOCATION: [facility] ORDER 7 STATUS: [facility] REPORT#: [id number] SERVICE REASON: vomiting and ascites ORDERING PHYSICIAN: RACHEL MAZARIEGOS MD PROCEDURE: ABD PELVWO - CT ABD/PEL WO CON RENAL/APPY EXAM: CT Abdomen and Pelvis Without IV Contrast CLINICAL HISTORY: Vomiting and ascites. TECHNIQUE: Axial computed tomography images of the abdomen and pelvis acquired without intravenous contrast. Dose optimization techniques applied. Total DLP: 408 mGy???cm. CONTRAST: No IV contrast administered. COMPARISON: Ultrasound Abdomen (US/SD) dated 12/29/2024, which demonstrated a large heterogeneous right hepatic lobe lesion (10.8 ??? 2.9 ??? 9.4 cm) superior to the TIPS tract, absent shunt flow suggesting possible TIPS occlusion or thrombosis, reduced portal vein flow, new ascites, and right pleural effusion with basal lung collapse. FINDINGS: LUNG BASES: Gross loculated right pleural collection measuring up to 7.0 cm in maximum thickness, causing compression atelectasis of the adjacent right lower lobe. No left-sided effusion or consolidation. LIVER: Cirrhotic morphology with coarse, nodular surface contour. An ill-defined, faintly heterogeneous hypodense lesion is noted in the right lobe of the liver along the lateral margin of the TIPS shunt, measuring approximately 5.0 ??? 4.8 cm. This lesion may represent a residual or evolving hematoma or post-procedural collection; however, further characterization requires contrast-enhanced imaging. No other discrete enhancing lesion is seen within the limitations of the non-contrast study. TIPS SHUNT: TIPS shunt visualized between the right portal and hepatic veins. Assessment of shunt patency is limited on non-contrast imaging. No displacement or gross thrombosis evident. GALLBLADDER AND BILE DUCTS: Gallbladder normal in size and wall thickness. No cholelithiasis or biliary dilatation. PANCREAS: Normal in size and attenuation. SPLEEN: Normal in size and homogeneous attenuation. ADRENAL GLANDS: Unremarkable. KIDNEYS, URETERS, AND BLADDER: Normal cortical thickness and attenuation. No hydronephrosis or calculi. Urinary bladder normal. STOMACH AND BOWEL: Non-dilated bowel loops with preserved mural thickness. No obstruction or perforation. APPENDIX: Normal in caliber. No periappendiceal inflammation. PERITONEUM: Gross ascites throughout the abdomen and pelvis. No free air. LYMPH NODES: No abnormally enlarged mesenteric or retroperitoneal lymph nodes. REPRODUCTIVE ORGANS: Within normal limits as visualized. VASCULATURE: Major abdominal vessels are patent. No aneurysm or thrombosis. BONES AND SOFT TISSUES: No acute osseous or soft tissue abnormality.IMPRESSION: 1. Ill-defined, hypodense right hepatic lobe lesion (5.0 x 4.8 cm) along the lateral margin of the TIPS shunt, reduced in size from prior ultrasound. Indeterminate on non-contrast study; contrast-enhanced CT or MRI recommended for further characterization. 2. Large loculated right pleural effusion (7.0 cm maximum thickness) with compression atelectasis of the adjacent right lower lobe. 3. Cirrhotic liver morphology with gross ascites throughout the abdomen and pelvis. 4. TIPS shunt in situ between right portal and hepatic veins; patency indeterminate without contrast. 5. No other acute intra-abdominal or pelvic abnormalities detected within the limitations of non-contrast imaging. 6. Compared with the prior abdominal ultrasound dated 12/29/2024, the previously described heterogeneous right hepatic lesion (10.8 ??? 2.9 ??? 9.4 cm) has reduced in size to approximately 5.0 ??? 4.8 cm, now appearing ill-defined and hypodense. Persistent ascites and new organization of the right pleural fluid into a loculated collection (7 cm) with lower lobe atelectasis are noted. The TIPS shunt remains in position; however, shunt patency cannot be reassessed without contrast or Doppler evaluation. No new hepatic or extrahepatic lesion identified. /[facility] DICTATED BY: TYRONE NOLEN MD DATE: 01/13/251303 ELECTRONICALLY SIGNED BY: TYRONE NOLEN MD DATE: 01/13/251303 PATIENT: CHAN GARDINER MR#: [id number] : 1970 SEX: M AGE: 54 LOCATION: [facility] ORDER 9 STATUS: REG REPORT#: [id number] SERVICE 8 REASON: sob ORDERING PHYSICIAN: RACHEL MAZARIEGOS MD PROCEDURE: CXR1VW - CHEST 1VW EXAM: CR Chest, 1 View. CLINICAL HISTORY: sob COMPARISON: Radiograph dated December 18, 2024 Findings: AP view of the chest is submitted. Large right pleural effusion with suggestion of a loculated component. Subjacent airspace disease may reflect atelectasis and/or an infectious/inflammatory process. The left lung is clear. No pneumothorax. Heart size and pulmonary vessels are within normal limits. IMPRESSION: 1. Large right pleural effusion with possible loculation. 2. Right lower lobe airspace disease, potentially atelectasis or pneumonia. /[facility] DICTATED BY: MARIANN HOWARD Jr., MD DATE: 01/13/251302 ELECTRONICALLY SIGNED BY: MARIANN HOWARD Jr., MD DATE: 01/13/251302 ASSESSMENT: Hyponatremia Ascites patient has cirrhosis of liver with alcohol abuse before Large right-sided pleural effusion Sinus tachycardia, POA History of portal hypertensive gastropathy, POA History of gastritis, POA Prior history of alcohol use, quit alcohol three months ago, POA Anemia, POA PLAN: Labs, diagnostic, radiologic exams reviewed and interpreted by myself and supervising physician. We have reviewed external records in detail Recommend GI evaluation for liver cirrhosis/liver transplant. 1.5 fluid restriction is advised Continue with diuretics Require close monitoring of renal function and electrolytes Order CBC, CMP,electrolytes in am BiPAP as necessary, for respiratory distress Monitor blood pressure adjust medication doses as needed Avoid hypotensive episodes May use Dilaudid 0.5 mg IV every 6 hours as needed for severe pain Monitor blood sugars Strict intake, output, and daily weight should be monitored Please renally adjust medications Avoid nephrotoxic and nonsteroidal drugs Avoid contrast if possible Will continue to monitor renal function, anemia, electrolytes Treatment plan discussed with patient Questions were answered We have discussed with the other team physicians in detail about the care plan We will continue to monitor the patient closely ATTESTATION BY PHYSICIAN I have seen and examined the patient. I reviewed the documentation, medical decision making, and treatment plan as noted by the mid-level provider above. I agree with the findings and plan of care. HARJINDER CORTÉS MD, [facility] Jan 15, 2025 12:52
--- NOTE | 2025-01-15 14:13 | PN ---
[facility] PROGRESS NOTE Date of Service: Jan 15, 2025 Time of Service: 13:49 SUBJECTIVE: 54-year-old malen history of alcoholic liver cirrhosis, history of portal hypertensive gastropathy, recurrent ascites, recent history of tips procedure by Dr. Molina in [facility] on 12/2024, chronic anemia, history of hyponatremia, presented to the ER for further evaluation of significant abdominal distention with associated nausea and vomiting. Patient reports that he has been having significant abdominal distention since discharge from the hospital on 12/31/2024., patient was previously hospitalized in [facility] on 12/15/2024 and had an extended hospital stay if where he underwent tips placement for recurrent large volume ascites. Patient states that he has been trying to be compliant with his home medications. He remains on lactulose, midodrine at home. Unsure if patient has had compliance with oral diuretics as outpatient. Patient did not bring any of his home medications today to the ER. Also reports having significant abdominal pain due to progressive distention of the abdomen, currently rates the pain as 8/10 in severity. Oral intake has been poor due to abdominal distention. Patient reports that he gets short of breath with minimal activity. Denies any cough. Denies any pleurisy. Denies any recent history of hematochezia or melena.On presentation to the hospital, patient was noted to be afebrile and tachycardic with heart rate in the 110s-120s, blood pressure of 137/94 and saturating greater than 97% on room air. [place] [address], hemoglobin 10.1, platelet count of 462977. BMP showed sodium 125, potassium 4.2, BUN of 16, creatinine of 0.8, lactic acid of 1.9, AST of 56, ALT of 18, alkaline phosphatase of 335, albumin of 1.6.Patient underwent further evaluation with chest x-ray which showed findings of large right-sided pleural effusion with possible loculation and compressive atelectasis of the right lower lobe of the lung.CT of the abdomen pelvis without contrast showed large volume ascites with large loculated right- sided pleural effusion with tips shunt noted. Patient did have subscapular hematoma noted on CT abdomen pelvis from 12/30/2024 after tips procedure. Per radiology, the ill-defined collection looks reduced in size from prior imaging. 01/14 The patient was seen and examined at the bedside. As the patient speaks Filipino only, a nurse was used as a translator interpreter. The patient stated that he is feeling better now but still has shortness of breath on exertion. The patient was planned for a paracentesis and thoracocentesis today. Interventional Radiology ordered chest x-ray, fluid culture, fluid cell count, body fluid culture and b elaine fluid cell count. Pleural fluid protein, fungal culture pleural fluid, pleural fluid AFB culture, pleural fluid culture, pleural fluid cell count, pleural fluid glucose, pleural fluid pH and pleural fluid LDH was also ordered. Bilateral upper extremity Doppler also ordered. The patient had hyponatremia therefore Nephrology was consulted and they ordered cortisol a.m., urine and serum osmolality. Pulmonology was consulted for large loculated right-sided pleural effusion and also ordered CEA, cancer antigen, AFP. 01/15 The patient was seen and examined at the bedside. As the patient speaks Filipino only, a nurse was used as a translator interpreter. The patient stated that he is feeling weak and would required some physical therapy therefore physical therapy was ordered. Due to patient's consistent hyponatremia, Lasix was increased to 40 mg daily and spironolactone increased to 100 mg daily. Patient was kept on1 L per24 hour fluid restriction. IV ceftriaxone was continued and metronidazole was stopped. The plan is to contact Dr. Molina to ask if anything can be done for TIPS to do with patient's ascites. A gastroenterology consult was also placed. The albumin dose of the be finished today. As per the primary team, the patient has poor prognosis. Bilateral upper extremity ultrasound was negative for deep or superficial thrombosis. CEA (4.8), AFP (2.1) and CA 19-9 (2) . As per the patient the patient used to smoke 3-4 cigarettes a week for a very long time but has smoked in the past 3 months. As per the patient, he has not drink alcohol in the past few months REVIEW OF SYSTEMS CONSTITUTIONAL: Denies fevers, chills, or night sweats. No unintentional weight loss reported. NEUROLOGICAL: Denies headache, amaurosis fugax, motor weakness, sensory deficit, vertigo/spinning sensation, gait abnormalities, or tremors. ENT: No hearing loss, otalgia, otorrhea, rhinitis, rhinorrhea, hoarseness, or sore throat. CARDIOVASCULAR: Denies any exertional angina, dyspnea on exertion, orthopnea, paroxysmal nocturnal dyspnea, palpitations, life-threatening arrhythmias, claudication. PULMONARY: Patient reports having shortness of breath with minimal activity SLEEP: Denies morning headaches, daytime somnolence or napping. Denies difficu lty falling asleep, staying asleep, waking from sleep. Denies knowledge of snoring. GASTROINTESTINAL: Nausea, vomiting abdominal pain GENITOURINARY: Denies frequency, urgency, nocturia, hematuria or incontinence (Storage/Irritative symptoms.) Low urinary stream, straining to void, urinary intermittency or hesitancy, splitting of the voiding stream, terminal dribbling. ENDOCRINOLOGIC: Denies polyuria, polydipsia, polyphagia or heat/cold intolerances. HEMATOLOGIC: Denies thrombophilia/previous clots, or coagulopathy/bleeding disorders. ONCOLOGIC: Denies personal history of malignancy. DERMATOLOGIC: Patient reports having lower extremity edema bilateral PSYCHIATRIC: Denies any suicidal or homicidal ideation. Denies hallucinations. PHYSICAL EXAM GENERAL APPEARANCE: The patient is awake, alert, and oriented, in no acute cardiopulmonary distress. NEUROLOGICAL: Cranial nerves II-XII grossly intact. Motor is 5/5 in bilateral upper and lower extremities proximal to distal. No sensory deficits. HEENT: Face is symmetric. Pupils are equal and reactive. Extraocular movements are intact. NECK: Supple. No JVD. No thyromegaly. No submental, submandibular, pre- /postauricular, occipital or supraclavicular lymphadenopathy. CHEST: Normal chest expansion. No Telemetry. LUNGS: Decreased breath sounds of the right lung base to the upper lung lance CARDIOVASCULAR: Regular. S1 and S2 normal. No appreciable rubs, murmurs or gallops. ABDOMEN: Abdomen is distended with fluid wave noted : Deferred. No Espin[place]. EXTREMITIES: 2+ pitting edema noted of bilateral lower extremities. No clubbing. Good capillary refill. SKIN: No skin breakdown. Vital Signs (last 8hr) Date Time Temp Pulse Resp B/P (MAP) Pulse Ox O2 Delivery O2 Flow Rate FiO2 01/15/25 08:00 98.2 108 16 117/73 96 Room Air 21 01/15/25 07:00 97 Room Air* 0 21 LABS: Laboratory: Test 01/15/25 04:31 01/14/25 14:30 01/14/25 11:00 01/14/25 07:40 Range/Units White Blood Count 9.0 4.8-10.8 K/uL Red Blood Count 2.41 L 4.50-6.20 MIL/uL Hemoglobin 8.0 L 14.0-18.0 g/dL Hematocrit 23.6 L 42-54 % Mean Corpuscular Volume 97.9 79-99 fL Mean Corpuscular Hemoglobin 33.2 H 27.0-33.0 pg Mean Corpuscular Hemoglobin Concent 33.9 32.0-36.0 g/dL Red Cell Distribution Width 20.9 H 11.0-15.5 % Platelet Count 89 #L 130-400 K/uL Mean Platelet Volume 8.3 7.5-10.5 fL Immature Granulocyte % (Auto) 0.6 0-1 % Neutrophils (%) (Auto) 66.9 40.0-77.0 % Lymphocytes (%) (Auto) 20.6 L 21.0-51.0 % Monocytes (%) (Auto) 9.6 3.0-13.0 % Eosinophils (%) (Auto) 2.0 0.0-8.0 % Basophils (%) (Auto) 0.3 0.0-5.0 % Neutrophils # (Auto) 6.0 1.8-7.7 K/uL Lymphocytes # (Auto) 1.9 1.0-4.8 K/uL Monocytes # (Auto) 0.9 0.1-1.0 K/uL Eosinophils # (Auto) 0.18 0.00-0.70 K/uL Basophils # (Auto) 0.03 0.00-0.20 K/uL Absolute Immature Granulocyte (auto 0.05 0-1 K/uL Nucleated Red Blood Cells 0.0 0.0-0.19 % Sodium Level 125 L 136-145 mmol/L Potassium Level 3.8 3.5-5.1 mmol/L Chloride Level 95 L 101-111 mmol/L Carbon Dioxide Level 25 21-32 mmol/L Blood Urea Nitrogen 11 7-18 mg/dL Creatinine 0.8 0.5-1.3 mg/dL Glomerular Filtration Rate Calc 106 >90 mL/min Random Glucose 120 H 70-105 mg/dL Uric Acid 4.6 2.6-7.2 mg/dL Total Calcium 7.0 L 8.5-10.1 mg/dL Magnesium Level 1.70 L 1.80-2.40 mg/dL Iron Level 34 #L 65-175 mcg/dL Total Iron Binding Capacity 41 L 250-450 mcg/dL Percent Iron Saturation 82.9 H 30-44 % Ferritin 192 30-400 ng/mL Total Bilirubin 1.4 #H 0.2-1.0 mg/dL Aspartate Amino Transf (AST/SGOT) 42 H 10-37 U/L Alanine Aminotransferase (ALT/SGPT) 15 12-78 U/L Alkaline Phosphatase 287 H 50-136 U/L Total Protein 5.0 L 6.0-8.3 g/dL Albumin 2.1 L 3.5-5.0 g/dL Body Fluid Source ASCITES Body Fluid Volume 4700 mL Body Fluid Color YELLOW LT YELLOW Body Fluid Supernatant Appearance SLIGHTLY CLOUDY CLEAR Body Fluid WBC 199 /cu. mm. Body Fluid RBC 4977 /cu. mm. Body Fluid Neutrophils 20.0 % Body Fluid Lymphocytes 50 % Body Fluid Monocytes % 18 % Body Fluid Macrophages (%) 7 Body Fluid Mesothelial Cells (%) 5 % Body Fluid Albumin 0.6 g/dL Body Fluid Lactate Dehydrogenase 102 U/L Pleural Fluid pH 8 Pleural Fluid Total Protein 1.8 mg/dL Pleural Fluid LDH 95 U/L Pleural Fluid Glucose 97 Tumor Marker Alpha Fetoprotein 2.1 0.0-8.4 ng/mL Carcinoembryonic Antigen 4.8 H 0.0-4.7 ng/mL CA 19-9 Antigen 2 0-35 U/mL Test 01/14/25 05:25 01/13/25 17:15 Range/Units Lactate Dehydrogenase 225 81-234 U/L Urine Color YELLOW YELLOW Urine Appearance CLEAR CLEAR Urine pH 5.5 5.0-8.0 Urine Specific [place] 1.031 1.001-1.031 Urine Protein 20 H NEGATIVE mg/dL Urine Glucose (UA) NEGATIVE NEGATIVE mg/dL Urine Ketones 10 H NEGATIVE mg/dL Urine Occult Blood NEGATIVE NEGATIVE Urine Nitrate NEGATIVE NEGATIVE Urine Bilirubin NEGATIVE NEGATIVE mg/dL Urine Urobilinogen 2.0 H 0.2-1.0 mg/dL Urine Leukocyte Esterase NEGATIVE NEGATIVE Pattie/uL Urine RBC 0-1 0-1 /HPF Urine WBC 2-5 H 0-1 /HPF Urine Squamous Epithelial Cells RARE 0-2 /HPF Urine Bacteria None None Seen /HPF Urine Hyaline Casts 2-5 H 0-1 /LPF /LPF Urine Random Creatinine 153.77 H 30-135 mg/dL Urine Random Sodium < 13 L 40-220 mmol/l Current Medications Medications (Trade) Dose Ordered Sig/Ronak Route PRN Reason Start Time Stop Time Status Last Admin Dose Admin Acetaminophen (TYLenol 325MG TAB) 650 mg Q6H PRN PO MILD PAIN (1-3) 01/13/25 13:30 02/12/25 13:29 01/14/25 22:35 650 MG Albumin Human 50 ml @ 0 mls/hr Q6H IV 01/13/25 13:30 01/15/25 13:30 DC 01/15/25 13:03 50 MLS/HR Ceftriaxone Sodium (Rocephin 2gm Inj) 2 gm DAILY IVPB 01/14/25 09:00 01/24/25 08:59 01/15/25 09:16 2 GM Ceftriaxone Sodium (Rocephin 2gm Inj) 2 gm ONCE STAT IVPB 01/13/25 09:47 01/13/25 09:49 DC 01/13/25 12:01 2 GM Enoxaparin Sodium (Lovenox) 40 mg DAILY SQ 01/16/25 09:00 02/15/25 08:59 Future Hold Furosemide (LASix 20MG TAB) 20 mg DAILY PO 01/15/25 09:00 01/15/25 11:41 DC 01/15/25 09:17 20 MG Furosemide (LASix 40MG TAB) 40 mg DAILY PO 01/16/25 09:00 02/15/25 08:59 Ipratropium [place] (AtrovENT UD) 0.5 mg Q6H PRN IH SHORTNESS OF BREATH 01/13/25 13:30 02/12/25 13:29 Lactulose (Constulose 20gm/ 30ml Udcup) 20 gm BID PO 01/13/25 21:00 02/12/25 20:59 01/15/25 09:25 20 GM Magnesium Sulfate 50 ml @ 0 mls/hr PROTOCOL PRN IV MAGNESIUM PROTOCOL 01/14/25 17:00 02/13/25 16:59 Metronidazole/ Sodium Chloride (flaGYL) 500 mg Q8H IV 01/13/25 17:30 01/15/25 11:41 DC 01/15/25 10:36 500 MG Midodrine (PROAMatine 5 MG TABLET) 5 mg TID PO 01/13/25 14:00 02/12/25 13:59 01/15/25 13:02 5 MG Ondansetron HCl (zoFRAN 4MG INJ) 4 mg ONCE STAT IVP 01/13/25 09:47 01/13/25 09:49 DC 01/13/25 12:01 4 MG Ondansetron HCl (zoFRAN 4MG INJ) 4 mg Q6H PRN IVP NAUSEA/VOMITING 01/13/25 13:30 02/12/25 13:29 01/14/25 02:06 4 MG Pantoprazole Sodium (PROTonix 40MG INJ) 40 mg Q24H IVP 01/13/25 13:30 02/12/25 13:29 01/15/25 13:03 40 MG Spironolactone (Aldactone 25mg) 50 mg DAILY PO 01/15/25 09:00 01/15/25 11:41 DC 01/15/25 09:16 50 MG Spironolactone (Aldactone 25mg) 100 mg DAILY PO 01/16/25 09:00 02/15/25 08:59 Thiamine HCl (Vitamin B-1) 100 mg DAILY IVP 01/14/25 09:00 02/13/25 08:59 01/15/25 09:17 100 MG Vitamin B Complex/ Vit C/Folic Acid (Nephrovite Tablet) 1 cap DAILY PO 01/14/25 09:00 02/13/25 08:59 01/15/25 09:16 1 CAP DIAGNOSTICS / RADIOLOGY: IMAGING REPORT Signed PATIENT: CHAN GARDINER MR#: [id number] : 1970 SEX: M AGE: 54 LOCATION: H ORDER 1031 STATUS: ADM IN REPORT#: [id number] SERVICE 1028 REASON: Rule out thromboembolism ORDERING PHYSICIAN: MANUEL TRUJILLO MD PROCEDURE: VENOUS RAYNA - US VENOUS DOPPLER BILATERAL EXAM: UPPER EXTREMITY VENOUS ULTRASOUND, BILATERAL (LIMITED) Technique: Real-time grayscale ultrasound with color and spectral Doppler of the bilateral upper extremity venous system, including compression maneuvers where technically feasible. Contrast: No intravenous contrast administered. Clinical Information: Rule out thromboembolism Comparison: None. Findings: Bilateral upper extremity venous system: Bilateral subclavian, axillary, brachial, basilic, cephalic, radial, and ulnar veins are patent without intraluminal thrombus; veins are compressible where accessible with normal color Doppler flow. Impression: No deep venous thrombosis identified in the evaluated bilateral upper extremity veins. No superficial venous thrombosis identified. /[place] DICTATED BY: TYRONE NOLEN MD DATE: 01/15/25912 ELECTRONICALLY SIGNED BY: TYRONE NOLEN MD DATE: 01/15/25912 IMAGING REPORT Signed PATIENT: CHAN GARDINER MR#: [id number] : 1970 SEX: M AGE: 54 LOCATION: [facility] ORDER [id number] STATUS: ADM IN REPORT#: [id number] SERVICE 1100 REASON: POST RT THORACENTESIS ORDERING PHYSICIAN: ALYCE MOLINA MD PROCEDURE: CXR1VW - CHEST 1VW EXAM: CR Chest, 1 View. CLINICAL HISTORY: Post thoracocentesis COMPARISON: CR chest dated 01/13/2025 FINDINGS: Status post thoracocentesis. LUNGS AND PLEURAL SPACES: No pneumothorax. Slight interval improvement in the right moderate pleural effusion with adjacent lung atelectasis. The rest of the lungs are clear. MEDIASTINUM: The cardiomediastinal silhouette is within normal limits. BONES: No aggressive appearing osseous lesion seen. IMPRESSION: 1. Slight interval improvement in right moderate pleural effusion with adjacent lung atelectasis. 2. No acute pulmonary findings. 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, POA Recent history of TIPS procedure for recurrent large volume ascites, POA Compressive right lung atelectasis from large right-sided pleural effusion, POA Acute on chronic hyponatremia, hypervolemic, POA Sinus tachycardia, POA History of portal hypertensive gastropathy, POA History of gastritis, POA Prior history of alcohol use, quit alcohol three months ago, POA Anemia, POA Coagulopathy, mild, secondary to underlying liver cirrhosis, POA History of subcapsular hematoma of the right subhepatic space noted on abdominal CT from 12/2024, from TIPS postprocedure, POA PLAN: Acute on chronic hyponatremia, hypervolemic * Sodium trends 125>128>127>125 * Nephrology was consulted * Ordered cortisol a.m., osmolality urine, serum osmolality Tense/large volume ascites with decompensated alcoholic liver cirrhosis, Recent history of TIPS procedure for recurrent large volume ascites, MELD Score 23 * Paracentesis ordered and 4.7 L of fluid removed * Fluid culture, fluid cell count, body fluid culture and body fluid cell count ordered * Interventional radiology consulted for TIPS evaluation * CEA (4.8), AFP (2.1) and CA 19-9 (2) Large right-sided pleural effusion with loculation, 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 * Lasix 20 mg increased to 40 mg and spironolactone 50 mg increased to 100 mg Anemia * Hemoglobin of 8.0 * Monitor hemoglobin * Ordered iron panel * TIBC 41, iron 34, transferrin saturation 82.9 ATTESTATION BY PHYSICIAN I have seen and examined the patient. I reviewed the documentation, medical decision making, and treatment plan as noted by the resident physician above. I agree with the findings and plan of care. MAGALI KRAUSE MD, SYED M MD Jan 15, 2025 14:13
--- NOTE | 2025-01-15 17:00 | NUR ---
SPOKE W/DR WALKER AWARE CONSULTATION
--- NOTE | 2025-01-15 22:30 | NUR ---
REINFORCED DRESSING ON RIGHT POSTERIOR CHEST (SITE OF THORACENTESIS) OPSITE HAS STARTED TO ROLL UP AND CAUSED A SMALL SKIN TEAR. NEW OPSITE APPLIED AND COVERED SKIN TEAR. SITE OF PARACENTESIS ON RIGHT ANTERIOR ABDOMEN ALSO HAS TAPE LIFTING UP. ASSESSED SITE. GAUZE IS DRY AND DID NOT OBSERVE ANY LEAKING FROM PUNCTURE SITE. REMOVED DRESSING AND LEFT OPEN TO AIR.
[2025-01-16] VITALS (11 sets, daily range): BP systolic 103–114; BP diastolic 59–69; PULSE 105–116; RESP 14–19; TEMP 98.2–98.9; O2SAT 93–99
[2025-01-16 04:49] LABS: NUCLEATED RED BLOOD CELLS 0.0 % (0.0-0.19); PLATELET COUNT (AUTO) 98.0 K/uL (130-400); RED BLOOD CELL COUNT(AUTO) 2.48 MIL/uL (4.50-6.20); RED CELL DISTRIBUTION WIDTH 21.1 % (11.0-15.5); WHITE BLOOD COUNT (AUTO) 9.6 K/uL (4.8-10.8)
[2025-01-16 05:12] LABS: ASPARTATE AMINOTRANSFERASE 38.0 U/L (10-37); CREATININE 0.5 mg/dL (0.5-1.3); GLOMERULAR FILTR. RATE CALC 123.0 mL/min (>90); GLUCOSE,RANDOM 119.0 mg/dL (70-105); PHOSPHORUS 2.4 mg/dL (2.5-4.9); SODIUM SERUM 129.0 mmol/L (136-145); TOTAL PROTEIN, SERUM 5.0 g/dL (6.0-8.3); UREA NITROGEN, BLOOD 7.0 mg/dL (7-18)
[2025-01-16] MEDS: SPIRONOLACTONE 25 MG TAB PO SCH (07:58)
[2025-01-16] MEDS ORDERED: ENOXAPARIN SODIUM 40 MG/0.4 ML SYRINGE SQ SCH (09:00)
--- NOTE | 2025-01-16 10:00 | PN ---
NEPHROLOGY PROGRESS NOTE Date/Time Patient Seen: Jan 16, 2025 SUBJECTIVE: This is a 54-year-old male history of alcoholic liver cirrhosis, history of portal hypertensive gastropathy, recurrent ascites, recent history of tips procedure by Dr. Molina in [facility] on 12/2024, chronic anemia, history of hyponatr emia, He presented to the ER for further evaluation of significant abdominal distention with associated nausea and vomiting. S/p paracentesis with 4.7 L removed He has been started on Lasix and spironolactone. He was noted with hyponatremia We are consulted for hyponatremia Renal function is stable Sodium today [id number] mmoL/L, other electrolytes are stable He continues on fluid restriction Pending GI recommendations He was seen in the medical floor, in no acute distress No family at the bedside Prognosis remains guarded REVIEW OF SYSTEMS: GENERAL: Negative for any nausea, vomiting, fevers, chills, or weight loss. NEUROLOGIC: Negative for any blurry vision, blind spots, double vision, facial asymmetry, dysphagia, dysarthria, hemiparesis, hemisensory deficits, vertigo, ataxia. HEENT: Negative for any head trauma, neck trauma, neck stiffness, photophobia, phonophobia, sinusitis, rhinitis. CARDIAC: Negative for any chest pain, dyspnea on exertion, paroxysmal nocturnal dyspnea, peripheral edema. PULMONARY: Negative for any shortness of breath, wheezing, COPD, or TB exposure. GASTROINTESTINAL: Negative for any abdominal pain, nausea, vomiting, bright red blood per rectum, melena. GENITOURINARY: Negative for any dysuria, hematuria, incontinence. INTEGUMENTARY: Negative for any rashes, cuts, insect bites. RHEUMATOLOGIC: Negative for any joint pains, photosensitive rashes, history of vasculitis or kidney problems. HEMATOLOGIC: Negative for any abnormal bruising, frequent infections or bleeding. Vital Signs (last 8hr) Date Time Temp Pulse Resp B/P (MAP) Pulse Ox O2 Delivery O2 Flow Rate FiO2 01/16/25 08:15 98.4 105 18 114/67 97 Room Air 01/16/25 04:00 108 18 103/63 93 Room Air PHYSICAL EXAM: GENERAL: Alert and oriented x 3. No acute distress. Well-nourished. EYES: EOMI. Anicteric. HENT: Moist mucous membranes. No scleral icterus. No cervical lymphadenopathy. LUNGS: Clear to auscultation bilaterally. No accessory muscle use. CARDIOVASCULAR: Regular rate and rhythm. No murmur. No JVD. ABDOMEN: Soft, non-tender and non-distended. No palpable masses. EXTREMITIES: No edema. Non-tender. SKIN: No rashes or lesions. Warm. NEUROLOGIC: No focal neurological deficits. CN II-XII grossly intact, but not individually tested. PSYCHIATRIC: Cooperative. Appropriate mood and affect. Current Medications Medications (Trade) Dose Ordered Sig/Ronak Route Start Time Stop Time Status Last Admin Dose Admin Albumin Human 50 ml @ 0 mls/hr Q6H IV 01/13/25 13:30 01/15/25 13:30 01/15/25 06:20 50 MLS/HR Ceftriaxone Sodium (Rocephin 2gm Inj) 2 gm DAILY IVPB 01/14/25 09:00 01/24/25 08:59 01/15/25 09:16 2 GM Ceftriaxone Sodium (Rocephin 2gm Inj) 2 gm ONCE STAT IVPB 01/13/25 09:47 01/13/25 09:49 DC 01/13/25 12:01 2 GM Enoxaparin Sodium (Lovenox) 40 mg DAILY SQ 01/16/25 09:00 02/15/25 08:59 Future Hold Furosemide (LASix 20MG TAB) 20 mg DAILY PO 01/15/25 09:00 01/15/25 11:41 DC 01/15/25 09:17 20 MG Furosemide (LASix 40MG TAB) 40 mg DAILY PO 01/16/25 09:00 02/15/25 08:59 Lactulose (Constulose 20gm/ 30ml Udcup) 20 gm BID PO 01/13/25 21:00 02/12/25 20:59 01/15/25 09:25 20 GM Metronidazole/ Sodium Chloride (flaGYL) 500 mg Q8H IV 01/13/25 17:30 01/15/25 11:41 DC 01/15/25 10:36 500 MG Midodrine (PROAMatine 5 MG TABLET) 5 mg TID PO 01/13/25 14:00 02/12/25 13:59 01/15/25 09:23 5 MG Ondansetron HCl (zoFRAN 4MG INJ) 4 mg ONCE STAT IVP 01/13/25 09:47 01/13/25 09:49 DC 01/13/25 12:01 4 MG Pantoprazole Sodium (PROTonix 40MG INJ) 40 mg Q24H IVP 01/13/25 13:30 02/12/25 13:29 01/14/25 14:53 40 MG Spironolactone (Aldactone 25mg) 50 mg DAILY PO 01/15/25 09:00 01/15/25 11:41 DC 01/15/25 09:16 50 MG Spironolactone (Aldactone 25mg) 100 mg DAILY PO 01/16/25 09:00 02/15/25 08:59 Thiamine HCl (Vitamin B-1) 100 mg DAILY IVP 01/14/25 09:00 02/13/25 08:59 01/15/25 09:17 100 MG Vitamin B Complex/ Vit C/Folic Acid (Nephrovite Tablet) 1 cap DAILY PO 01/14/25 09:00 02/13/25 08:59 01/15/25 09:16 1 [facility] LABORATORY: [ ] Hematology Labs: Test 01/16/25 04:03 01/15/25 04:31 Range/Units White Blood Count 9.6 4.8-10.8 K/uL Red Blood Count 2.48 L 4.50-6.20 MIL/uL Hemoglobin 8.3 L 14.0-18.0 g/dL Hematocrit 24.4 L 42-54 % Mean Corpuscular Volume 98.4 79-99 fL Mean Corpuscular Hemoglobin 33.5 H 27.0-33.0 pg Mean Corpuscular Hemoglobin Concent 34.0 32.0-36.0 g/dL Red Cell Distribution Width 21.1 H 11.0-15.5 % Platelet Count 98 L 130-400 K/uL Mean Platelet Volume 8.0 7.5-10.5 fL Nucleated Red Blood Cells 0.0 0.0-0.19 % Immature Granulocyte % (Auto) 0.6 0-1 % Neutrophils (%) (Auto) 66.9 40.0-77.0 % Lymphocytes (%) (Auto) 20.6 L 21.0-51.0 % Monocytes (%) (Auto) 9.6 3.0-13.0 % Eosinophils (%) (Auto) 2.0 0.0-8.0 % Basophils (%) (Auto) 0.3 0.0-5.0 % Neutrophils # (Auto) 6.0 1.8-7.7 K/uL Lymphocytes # (Auto) 1.9 1.0-4.8 K/uL Monocytes # (Auto) 0.9 0.1-1.0 K/uL Eosinophils # (Auto) 0.18 0.00-0.70 K/uL Basophils # (Auto) 0.03 0.00-0.20 K/uL Absolute Immature Granulocyte (auto 0.05 0-1 K/uL Chemistry Labs: Test 01/16/25 04:03 01/15/25 04:31 Range/Units Sodium Level 129 L 136-145 mmol/L Potassium Level 4.0 3.5-5.1 mmol/L Chloride Level 99 L 101-111 mmol/L Carbon Dioxide Level 28 21-32 mmol/L Blood Urea Nitrogen 7 7-18 mg/dL Creatinine 0.5 0.5-1.3 mg/dL Glomerular Filtration Rate Calc 123 >90 mL/min Random Glucose 119 H 70-105 mg/dL Total Calcium 7.1 L 8.5-10.1 mg/dL Phosphorus Level 2.4 L 2.5-4.9 mg/dL Magnesium Level 1.80 1.80-2.40 mg/dL Total Bilirubin 1.3 H 0.2-1.0 mg/dL Aspartate Amino Transf (AST/SGOT) 38 H 10-37 U/L Alanine Aminotransferase (ALT/SGPT) 12 12-78 U/L Alkaline Phosphatase 310 H 50-136 U/L Total Protein 5.0 L 6.0-8.3 g/dL Albumin 2.1 L 3.5-5.0 g/dL Uric Acid 4.6 2.6-7.2 mg/dL Iron Level 34 #L 65-175 mcg/dL Total Iron Binding Capacity 41 L 250-450 mcg/dL Percent Iron Saturation 82.9 H 30-44 % Ferritin 192 30-400 ng/mL DIAGNOSTICS / RADIOLOGY: [address] [address] IMAGING REPORT Signed PATIENT: CHAN GARDINER MR#: [id number] : 1970 SEX: M AGE: 54 LOCATION: [facility] ORDER [id number] STATUS: ADM IN REPORT#: [id number] SERVICE 1100 REASON: POST RT THORACENTESIS ORDERING PHYSICIAN: ALYCE MOLINA MD PROCEDURE: CXR1VW - CHEST 1VW EXAM: CR Chest, 1 View. CLINICAL HISTORY: Post thoracocentesis COMPARISON: CR chest dated 01/13/2025 FINDINGS: Status post thoracocentesis. LUNGS AND PLEURAL SPACES: No pneumothorax. Slight interval improvement in the right moderate pleural effusion with adjacent lung atelectasis. The rest of the lungs are clear. MEDIASTINUM: The cardiomediastinal silhouette is within normal limits. BONES: No aggressive appearing osseous lesion seen. IMPRESSION: 1. Slight interval improvement in right moderate pleural effusion with adjacent lung atelectasis. 2. No acute pulmonary findings. /[place] DICTATED BY: MARIANN HOWARD Jr., MD DATE: 01/15/25822 ELECTRONICALLY SIGNED BY: MARIANN HOWARD Jr., MD DATE: 01/15/25822 PATIENT: CHAN GARDINER MR#: [id number] : 1970 SEX: M AGE: 54 LOCATION: [facility] ORDER [id number] STATUS: ADM IN REPORT#: [id number] SERVICE 1028 REASON: Rule out thromboembolism ORDERING PHYSICIAN: MANUEL TRUJILLO MD PROCEDURE: VENOUS RAYNA - US VENOUS DOPPLER BILATERAL EXAM: UPPER EXTREMITY VENOUS ULTRASOUND, BILATERAL (LIMITED) Technique: Real-time grayscale ultrasound with color and spectral Doppler of the bilateral upper extremity venous system, including compression maneuvers where technically feasible. Contrast: No intravenous contrast administered. Clinical Information: Rule out thromboembolism Comparison: None. Findings: Bilateral upper extremity venous system: Bilateral subclavian, axillary, brachial, basilic, cephalic, radial, and ulnar veins are patent without intraluminal thrombus; veins are compressible where accessible with normal color Doppler flow. Impression: No deep venous thrombosis identified in the evaluated bilateral upper extremity veins. No superficial venous thrombosis identified. /[place] DICTATED BY: TYRONE NOLEN MD DATE: 01/15/25912 ELECTRONICALLY SIGNED BY: TYRONE NOLEN MD DATE: 01/15/25912 PATIENT: CHAN GARDINER MR#: [id number] : 1970 SEX: M AGE: 54 LOCATION: [facility] ORDER 1304 STATUS: ADM IN REPORT#: [id number] SERVICE 08 REASON: diagnotic and therapeutic paracentesis, cirrhosis,ascitic fluid to be sent ORDERING PHYSICIAN: CATRACHITA TENORIO MD PROCEDURE: PARA ABD - US ABDOMINAL PARACENTESIS IR US ABDOMINAL PARACENTESIS IR REASON: diagnotic and therapeutic paracentesis, cirrhosis,ascitic fluid to be sent TECHNIQUE: Paracentesis was performed with ultrasound guidance. The puncture site was selected in the Right lower quadrant and overlying skin prepped and draped in a sterile fashion. 1% Xylocaine infiltration was performed. Catheter was placed in the fluid using trocar technique. 4.7 L were removed. Fluid sample was submitted for laboratory evaluation. The patient showed no evidence of complication during the procedure. Patient tolerated procedure well. IMPRESSION: 1. Ultrasound-guided paracentesis. DICTATED BY: ALYCE MOLINA MD DATE: 01/14/25 1451 ELECTRONICALLY SIGNED BY: ALYCE MOLINA MD DATE: 01/14/251499 PATIENT: CHAN GARDINER MR#: [id number] : 1970 SEX: M AGE: 54 LOCATION: [facility] ORDER 130 STATUS: ADM IN REPORT#: [id number] SERVICE 08 REASON: diagnotic and therapeutic paracentesis, cirrhosis,ascitic fluid to be sent ORDERING PHYSICIAN: CATRACHITA TENORIO MD PROCEDURE: PARA ABD - US ABDOMINAL PARACENTESIS IR US ABDOMINAL PARACENTESIS IR REASON: diagnotic and therapeutic paracentesis, cirrhosis,ascitic fluid to be sent TECHNIQUE: Paracentesis was performed with ultrasound guidance. The puncture site was selected in the Right lower quadrant and overlying skin prepped and draped in a sterile fashion. 1% Xylocaine infiltration was performed. Catheter was placed in the fluid using trocar technique. 4.7 L were removed. Fluid sample was submitted for laboratory evaluation. The patient showed no evidence of complication during the procedure. Patient tolerated procedure well. IMPRESSION: 1. Ultrasound-guided paracentesis. DICTATED BY: ALYCE MOLINA MD DATE: 01/14/25 1451 ELECTRONICALLY SIGNED BY: ALYCE MOLINA MD DATE: 01/14/25 1500 PATIENT: CHAN GARDINER MR#: [id number] : 1970 SEX: M AGE: 54 LOCATION: [facility] ORDER 7 STATUS: REG REPORT#: [id number] SERVICE 6 REASON: vomiting and ascites ORDERING PHYSICIAN: RACHEL MAZARIEGOS MD PROCEDURE: ABD PELVWO - CT ABD/PEL WO CON RENAL/APPY EXAM: CT Abdomen and Pelvis Without IV Contrast CLINICAL HISTORY: Vomiting and ascites. TECHNIQUE: Axial computed tomography images of the abdomen and pelvis acquired without intravenous contrast. Dose optimization techniques applied. Total DLP: 408 mGy???cm. CONTRAST: No IV contrast administered. COMPARISON: Ultrasound Abdomen (US/SD) dated 12/29/2024, which demonstrated a large heterogeneous right hepatic lobe lesion (10.8 ??? 2.9 ??? 9.4 cm) superior to the TIPS tract, absent shunt flow suggesting possible TIPS occlusion or thrombosis, reduced portal vein flow, new ascites, and right pleural effusion with basal lung collapse. FINDINGS: LUNG BASES: Gross loculated right pleural collection measuring up to 7.0 cm in maximum thickness, causing compression atelectasis of the adjacent right lower lobe. No left-sided effusion or consolidation. LIVER: Cirrhotic morphology with coarse, nodular surface contour. An ill-defined, faintly heterogeneous hypodense lesion is noted in the right lobe of the liver along the lateral margin of the TIPS shunt, measuring approximately 5.0 ??? 4.8 cm. This lesion may represent a residual or evolving hematoma or post-procedural collection; however, further characterization requires contrast-enhanced imaging. No other discrete enhancing lesion is seen within the limitations of the non-contrast study. TIPS SHUNT: TIPS shunt visualized between the right portal and hepatic veins. Assessment of shunt patency is limited on non-contrast imaging. No displacement or gross thrombosis evident. GALLBLADDER AND BILE DUCTS: Gallbladder normal in size and wall thickness. No cholelithiasis or biliary dilatation. PANCREAS: Normal in size and attenuation. SPLEEN: Normal in size and homogeneous attenuation. ADRENAL GLANDS: Unremarkable. KIDNEYS, URETERS, AND BLADDER: Normal cortical thickness and attenuation. No hydronephrosis or calculi. Urinary bladder normal. STOMACH AND BOWEL: Non-dilated bowel loops with preserved mural thickness. No obstruction or perforation. APPENDIX: Normal in caliber. No periappendiceal inflammation. PERITONEUM: Gross ascites throughout the abdomen and pelvis. No free air. LYMPH NODES: No abnormally enlarged mesenteric or retroperitoneal lymph nodes. REPRODUCTIVE ORGANS: Within normal limits as visualized. VASCULATURE: Major abdominal vessels are patent. No aneurysm or thrombosis. BONES AND SOFT TISSUES: No acute osseous or soft tissue abnormality.IMPRESSION: 1. Ill-defined, hypodense right hepatic lobe lesion (5.0 x 4.8 cm) along the lateral margin of the TIPS shunt, reduced in size from prior ultrasound. Indeterminate on non-contrast study; contrast-enhanced CT or MRI recommended for further characterization. 2. Large loculated right pleural effusion (7.0 cm maximum thickness) with compression atelectasis of the adjacent right lower lobe. 3. Cirrhotic liver morphology with gross ascites throughout the abdomen and pelvis. 4. TIPS shunt in situ between right portal and hepatic veins; patency indeterminate without contrast. 5. No other acute intra-abdominal or pelvic abnormalities detected within the limitations of non-contrast imaging. 6. Compared with the prior abdominal ultrasound dated 12/29/2024, the previously described heterogeneous right hepatic lesion (10.8 ??? 2.9 ??? 9.4 cm) has redu elle in size to approximately 5.0 ??? 4.8 cm, now appearing ill-defined and hypodense. Persistent ascites and new organization of the right pleural fluid into a loculated collection (7 cm) with lower lobe atelectasis are noted. The TIPS shunt remains in position; however, shunt patency cannot be reassessed without contrast or Doppler evaluation. No new hepatic or extrahepatic lesion identified. /[place] DICTATED BY: TYRONE NOLEN MD DATE: 01/13/251303 ELECTRONICALLY SIGNED BY: TYRONE NOLEN MD DATE: 01/13/251303 PATIENT: CHAN GARDINER MR#: [id number] : 1970 SEX: M AGE: 54 LOCATION: [facility] ORDER 9 STATUS: REG ER REPORT#: [id number] SERVICE 8 REASON: sob ORDERING PHYSICIAN: RACHEL MAZARIEGOS MD PROCEDURE: CXR1VW - CHEST 1VW EXAM: CR Chest, 1 View. CLINICAL HISTORY: sob COMPARISON: Radiograph dated December 18, 2024 Findings: AP view of the chest is submitted. Large right pleural effusion with suggestion of a loculated component. Subjacent airspace disease may reflect atelectasis and/or an infectious/inflammatory process. The left lung is clear. No pneumothorax. Heart size and pulmonary vessels are within normal limits. IMPRESSION: 1. Large right pleural effusion with possible loculation. 2. Right lower lobe airspace disease, potentially atelectasis or pneumonia. /[place] DICTATED BY: MARIANN HOWARD Jr., MD DATE: 01/13/251302 ELECTRONICALLY SIGNED BY: MARIANN HOWARD Jr., MD DATE: 01/13/251302 ASSESSMENT: Hyponatremia Ascites patient has cirrhosis of liver with alcohol abuse before Large right-sided pleural effusion Sinus tachycardia, POA History of portal hypertensive gastropathy, POA History of gastritis, POA Prior history of alcohol use, quit alcohol three months ago, POA Anemia, POA PLAN: Labs, diagnostic, radiologic exams reviewed and interpreted by myself and supervising physician. We have reviewed external records in detail Recommend GI recommendations 1.5 fluid restriction is advised Continue with diuretics Require close monitoring of renal function and electrolytes Order CBC, CMP,electrolytes in am BiPAP as necessary, for respiratory distress Monitor blood pressure adjust medication doses as needed Avoid hypotensive episodes May use Dilaudid 0.5 mg IV every 6 hours as needed for severe pain Monitor blood sugars Strict intake, output, and daily weight should be monitored Please renally adjust medications Avoid nephrotoxic and nonsteroidal drugs Avoid contrast if possible Will continue to monitor renal function, anemia, electrolytes Treatment plan discussed with patient Questions were answered We have discussed with the other team physicians in detail about the care plan We will continue to monitor the patient closely ATTESTATION BY PHYSICIAN I have seen and examined the patient. I reviewed the documentation, medical decision making, and treatment plan as noted by the mid-level provider above. I agree with the findings and plan of care. HARJINDER CORTÉS MD, [facility] Jan 16, 2025 10:00
--- NOTE | 2025-01-16 13:41 | PN ---
[facility] PROGRESS NOTE Date Patient Seen: Jan 16, 2025 Time of Visit: 13:27 Supervising Physician: [Dr Pan Primary Care Physician: [Dr. Miko Moya] Outpatient Specialists: [ ] Inpatient Consults: [[facility] team-pulmichael, Dr. Gallo-nephro PROBLEM LIST: Loculated right pleural effusion, large-POA - s/p right thoracentesis 01/14/25 - Transudative as per Light's criteria Ascites with recurrent paracentesis-POA - s/p paracentesis 4.7 L removed 01/14/25 Alcoholic liver cirrhosis-POA: Child-santizo score=11 points: Child class C with life expectancy 1-3 years; MELD-Na score- 24 points=14-15% est 90-day mortality Acute on chronic hyponatremia-POA Hepatic transaminitis-POA Hyperbilirubinemia-POA Mild leukocytosis-POA Right lobe liver lesion-POA Hypoalbuminemia-POA CHRONIC PROBLEM LIST: Primary hypertension Hyperlipidemia S/p TIPS placement 12/2024 History of portal hypertensive gastropathy History of gastritis Prior history of alcohol and nicotine use, quit alcohol three months ago Anemia Coagulopathy, mild, secondary to underlying liver cirrhosis History of subcapsular hematoma of the right subhepatic space noted on abdominal CT from 12/2024, from TIPS postprocedure PLAN: Supplemental oxygen as needed PT currently on room air Continue Ceftriaxone and Flagyl IV s/p IR thoracentesis, 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 labs INTERVAL HISTORY: [Per hospitalist's notes: "54-year-old malen history of alcoholic liver cirrhosis, history of portal hypertensive gastropathy, recurrent ascites, recent history of tips procedure by Dr. Yoder in [facility] on 12/2024, chronic anemia, history of hyponatremia, presented to the ER for further evaluation of significant abdominal distention with associated nausea and vomiting. Patient reports that he has been having significant abdominal distention since discharge from the hospital on 12/31/2024., patient was previously hospitalized in [facility] on 12/15/2024 and had an extended hospital stay if where he underwent tips placement for recurrent large volume ascites. Patient states that he has been trying to be compliant with his home medications. He remains on lactulose, midodrine at home. Unsure if patient has had compliance with oral diuretics as outpatient. Patient did not bring any of his home medications today to the ER. Also reports having significant abdominal pain due to progressive distention of the abdomen, currently rates the pain as 8/10 in severity. Oral intake has been poor due to abdominal distention.Patient reports that he gets short of breath with minimal activity. Denies any cough. Denies any pleurisy. Denies any recent history of hematochezia or melena." BIS team was consulted for loculated pleural effusion per CT report. [employer] [facility] provided by Andrea [place]: Patient claims that he just recently had a paracentesis last Friday equivalent to 4.5 L fluid drained. Despite this, he still continues to experience shortness of breath that is worse on exertion. Yesterday, he came up here in the ER but was eventually sent home because he was told that nobody was available to tap him. He continues to have abdominal distention and pain with pain scale of 10/10. He claimed that he was doing well after his tips placement. Otherwise, he denies other constitutional symptoms. On my assessment, patient is currently on room air saturating 95-96%. He endorses a pain scale of 3/10. Abdomen is mildly soft but without board-like rigidity, BNP he has 3+ pitting edema. Patient is not encephalopathic. Goals of care was discussed with the patient verbalizing understanding and agreement. We will continue to follow along patient's response to treatment. On behalf of BIS team, thank you for allowing us to participate in Mr. German's care. 01/14 - patient is seen and evaluated at the bedside. Patient is sitting up in bed with no signs of acute distress. Patient remains on room air and denies chest discomfort, chest pain or dyspnea. Patient does admit minimal dyspnea with exertion however while at rest he is perfectly fine. No acute changes reported overnight. Patient does continue with abdominal distention. Recommend IR for right thoracentesis. Send pleural fluid for analysis. Patient is scheduled for a paracentesis today. Recommend continue Rocephin for SBP. Patient had abdominal ultrasound shows cirrhotic liver morphology with ascites. Patient's tips with peak systolic velocities proximal mid and distal are 95, 167 and 131 CMS/S. We will continue to follow up with you. Patient reports a recent paracentesis last Friday with 4.5 L removed. Patient may require restarting Lasix and spironolactone if ascites persists 01/15-Examined and assess patient is resting in bed in a high Boyce's position awake, alert, and oriented with no family members nor friends present, as well as in no acute distress. Accompanied by patient's bedside nurse. Reviewed and discussed with patient laboratory results, vital signs, and diagnostic procedures. 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 Location of liver side is a factor to where there is more fluid migrating to the right lower lobe area of the patient. After discussing this with the patient there are questions or concerns. Hemodynamically stable. Afebrile. A.m. labs ordered. Patient denies shortness or breath, fever, chills, nauseousness and constipation currently.. 01/16 - patient is seen and examined at the bedside. Patient is seen sitting up in bed appears to be weak and deconditioned. Patient reports he did not sleep well last night. Patient remains on room air with no signs of acute distress. Patient denies chest discomfort or chest pain at the time of my evaluation. No acute changes reported overnight. Recommend continue diuresing with Lasix and spironolactone. Vital signs are stable. Labs are within normal limits. Patient's sodium level continues to improve daily. Today's labs show 129 from 125 previously. Patient had a recent thoracentesis however fluid removal amount is unclear. Will repeat CXR in AM to re-evaluate the effusion. REVIEW OF SYSTEMS: 12 point ROS reviewed with patient. Pertinent positives mentioned above. Otherwise negative. PHYSICAL EXAM: GENERAL: alert, weak, awake oriented x 3 HEENT: EOMI, Sclera non icteric, moist mucosa NECK: Supple, no JVD, trachea midline LUNGS: Clear breath sounds bilaterally. No wheezes HEART: Regular rate and rhythm. Normal S1 and S2, without murmurs Tachycardia ABD: Abdomen semi-firm, nontender. Bowel sounds present EXT: No clubbing cyanosis, 3+ pittind edema on BLE NEURO: Alert and oriented to person, follows commands Vital Signs (last 8hr) Date Time Temp Pulse Resp B/P (MAP) Pulse Ox O2 Delivery O2 Flow Rate FiO2 01/16/25 11:17 98.4 112 14 105/64 99 Room Air 01/16/25 08:15 98.4 105 18 114/67 97 Room Air 01/16/25 08:00 95 Room Air* 0 21 LABS: Hematology Labs: Test 01/16/25 04:03 01/15/25 04:31 Range/Units White Blood Count 9.6 4.8-10.8 K/uL Red Blood Count 2.48 L 4.50-6.20 MIL/uL Hemoglobin 8.3 L 14.0-18.0 g/dL Hematocrit 24.4 L 42-54 % Mean Corpuscular Volume 98.4 79-99 fL Mean Corpuscular Hemoglobin 33.5 H 27.0-33.0 pg Mean Corpuscular Hemoglobin Concent 34.0 32.0-36.0 g/dL Red Cell Distribution Width 21.1 H 11.0-15.5 % Platelet Count 98 L 130-400 K/uL Mean Platelet Volume 8.0 7.5-10.5 fL Nucleated Red Blood Cells 0.0 0.0-0.19 % Immature Granulocyte % (Auto) 0.6 0-1 % Neutrophils (%) (Auto) 66.9 40.0-77.0 % Lymphocytes (%) (Auto) 20.6 L 21.0-51.0 % Monocytes (%) (Auto) 9.6 3.0-13.0 % Eosinophils (%) (Auto) 2.0 0.0-8.0 % Basophils (%) (Auto) 0.3 0.0-5.0 % Neutrophils # (Auto) 6.0 1.8-7.7 K/uL Lymphocytes # (Auto) 1.9 1.0-4.8 K/uL Monocytes # (Auto) 0.9 0.1-1.0 K/uL Eosinophils # (Auto) 0.18 0.00-0.70 K/uL Basophils # (Auto) 0.03 0.00-0.20 K/uL Absolute Immature Granulocyte (auto 0.05 0-1 K/uL Chemistry Labs: Test 01/16/25 04:03 01/15/25 04:31 Range/Units Sodium Level 129 L 136-145 mmol/L Potassium Level 4.0 3.5-5.1 mmol/L Chloride Level 99 L 101-111 mmol/L Carbon Dioxide Level 28 21-32 mmol/L Blood Urea Nitrogen 7 7-18 mg/dL Creatinine 0.5 0.5-1.3 mg/dL Glomerular Filtration Rate Calc 123 >90 mL/min Random Glucose 119 H 70-105 mg/dL Total Calcium 7.1 L 8.5-10.1 mg/dL Phosphorus Level 2.4 L 2.5-4.9 mg/dL Magnesium Level 1.80 1.80-2.40 mg/dL Total Bilirubin 1.3 H 0.2-1.0 mg/dL Aspartate Amino Transf (AST/SGOT) 38 H 10-37 U/L Alanine Aminotransferase (ALT/SGPT) 12 12-78 U/L Alkaline Phosphatase 310 H 50-136 U/L Total Protein 5.0 L 6.0-8.3 g/dL Albumin 2.1 L 3.5-5.0 g/dL Uric Acid 4.6 2.6-7.2 mg/dL Iron Level 34 #L 65-175 mcg/dL Total Iron Binding Capacity 41 L 250-450 mcg/dL Percent Iron Saturation 82.9 H 30-44 % Ferritin 192 30-400 ng/mL DIAGNOSTICS / RADIOLOGY RESULTS: [ ] PLAN NEURO: Minimize central acting medications as possible. Maintain fall precautions, adequate lighting during the day PULMONARY: Supplemental 02 as needed. Maintain aspiration precautions at all times CARDIOVASCULAR: Follow hemodynamics. Vital signs per facility protocol GI & NUTRITION: Continue with nutritional support. Continue stool softeners and laxatives as needed. KIDNEYS & ELECTROLYTES: Strict monitoring of intake, output and overall fluid balance. Avoid nephrotoxic medications to the extent possible. Medications to be dosed according to renal function. Monitor electrolytes and replace as needed ENDOCRINE: Maintain blood glucose between 100-180 at all times. Hypoglycemia protocol in place INFECTIOUS DISEASE: Trend temperature, WBC and procalcitonin level Follow cultures, deescalate antibiotics as soon as possible. Panculture if new onset fever ONCOLOGY/HEMATOLOGY/COAGULATION: Monitor for s/s of bleeding Monitor hemoglobin, coagulation studies as needed SKIN: Pressure ulcer prevention per facility protocol Specialty mattress ORTHO/REHAB: Continue PT/OT Prophylaxis: Continue GI and DVT prophylaxis Code Status: Full Resuscitation Disposition: As per attending. ATTESTATION BY PHYSICIAN I have evaluated the patient chart, medical records, and spoke with appropriate staff. I reviewed the documentation, medical decision making, and treatment plan as noted by the mid-level provider above. I agree with the findings and plan of care. Jeremias Pan MD, [facility] Jan 16, 2025 13:41
--- NOTE | 2025-01-16 15:51 | PN ---
[facility] PROGRESS NOTE Date of Service: Jan 16, 2025 Time of Service: 15:40 SUBJECTIVE: 54-year-old malen history of alcoholic liver cirrhosis, history of portal hypertensive gastropathy, recurrent ascites, recent history of tips [place]. [place] [facility] [place], chronic anemia, history of hyponatremia, presented to the ER for further evaluation of significant abdominal distention with associated nausea and vomiting. Patient reports that he has been having significant abdominal distention since discharge from the hospital on 12/31/2024., patient was previously hospitalized [place] [facility] [place] and had an extended hospital stay if where he underwent tips placement for recurrent large volume ascites. Patient states that he has been trying to be compliant with his home medications. He remains on lactulose, midodrine at home. Unsure if patient has had compliance with oral diuretics as outpatient. Patient did not bring any of his home medications today to the ER. Also reports having significant abdominal pain due to progressive distention of the abdomen, currently rates the pain as 8/10 in severity. Oral intake has been poor due to abdominal distention. Patient reports that he gets short of breath with minimal activity. Denies any cough. Denies any pleurisy. Denies any recent history of hematochezia or melena.On presentation to the hospital, patient was noted to be afebrile and tachycardic with heart rate in the 110s-120s, blood pressure of 137/94 and saturating greater than 97% on room air. [place] [address], hemoglobin 10.1, platelet count of 575711. BMP showed sodium 125, potassium 4.2, BUN of 16, creatinine of 0.8, lactic acid of 1.9, AST of 56, ALT of 18, alkaline phosphatase of 335, albumin of 1.6.Patient underwent further evaluation with chest x-ray which showed findings of large right-sided pleural effusion with possible loculation and compressive atelectasis of the right lower lobe of the lung.CT of the abdomen pelvis without contrast showed large volume ascites with large loculated right- sided pleural effusion with tips shunt noted. Patient did have subscapular hematoma noted on CT abdomen pelvis from 12/30/2024 after tips procedure. Per radiology, the ill-defined collection looks reduced in size from prior imaging. 01/14 The patient was seen and examined at the bedside. As the patient speaks [place] only, a nurse was used as a tinner automatic. The patient stated that he is feeling better now but still has shortness of breath on exertion. The patient was planned for a paracentesis and thoracocentesis today. Interventional Radiology ordered chest x-ray, fluid culture, fluid cell count, body fluid culture and b elaine fluid cell count. Pleural fluid protein, fungal culture pleural fluid, pleural fluid AFB culture, pleural fluid culture, pleural fluid cell count, pleural fluid glucose, pleural fluid pH and pleural fluid LDH was also ordered. Bilateral upper extremity Doppler also ordered. The patient had hyponatremia therefore Nephrology was consulted and they ordered cortisol a.m., urine and serum osmolality. Pulmonology was consulted for large loculated right-sided pleural effusion and also ordered CEA, cancer antigen, AFP. 01/15 The patient was seen and examined at the bedside. As the patient speaks [place] only, a nurse was used as a tinner automatic. The patient stated that he is feeling weak and would required some physical therapy therefore physical therapy was ordered. Due to patient's consistent hyponatremia, Lasix was increased to 40 mg daily and spironolactone increased to 100 mg daily. Patient was kept on1 L per24 hour fluid restriction. IV ceftriaxone was continued and metronidazole was stopped. The plan is to contact Dr. Yoder to ask if anything can be done for TIPS to do with patient's ascites. A gastroenterology consult was also placed. The albumin dose of the be finished today. As per the primary team, the patient has poor prognosis. Bilateral upper extremity ultrasound was negative for deep or superficial thrombosis. CEA (4.8), AFP (2.1) and CA 19-9 (2) . As per the patient the patient used to smoke 3-4 cigarettes a week for a very long time but has smoked in the past 3 months. As per the patient, he has not drink alcohol in the past few months 01/16/2025: Patient is seen and evaluated in the room 408. As the patient speaks [place] only, a nurse was used as a tinner automatic. The patient stated that he is feeling weak and would required some physical therapy therefore physical therapy was ordered. Also complained that he is having shortness of breath and abdominal pain. His vitals are in the normal range except for pulse 112. His labs are normal except for hemoglobin 8.3, platelet 98, sodium 129, chloride 99, phosphorus 2.4, AST 38, ALP 310. His ascitic fluid culture showed no growth after 16-23 hours. His AFB smear of ascitic fluid show no acid fast bacilli seen. His blood culture show no growth after 3 days. As his cortisol is 9.7 so we ordered cosyntropin simulation test. We spoke with Dr. Yoder regarding the revision of TIPS to increase he diameter of the shunt and he said that it takes 6 months for the ascites to get resolved after TIPS. Also his ascitic fluid vo lume is better today when compared to pre TIPS. We are also waiting for the sodium levels to be in the normal range then after that we can discharge him. REVIEW OF SYSTEMS CONSTITUTIONAL: Denies fevers, chills, or night sweats. No unintentional weight loss reported. NEUROLOGICAL: Denies headache, amaurosis fugax, motor weakness, sensory deficit, vertigo/spinning sensation, gait abnormalities, or tremors. ENT: No hearing loss, otalgia, otorrhea, rhinitis, rhinorrhea, hoarseness, or sore throat. CARDIOVASCULAR: Denies any exertional angina, dyspnea on exertion, orthopnea, paroxysmal nocturnal dyspnea, palpitations, life-threatening arrhythmias, claudication. PULMONARY: Patient reports having shortness of breath with minimal activity SLEEP: Denies morning headaches, daytime somnolence or napping. Denies difficulty falling asleep, staying asleep, waking from sleep. Denies knowledge of snoring. GASTROINTESTINAL: abdominal pain, No nausea, vomiting, diarrhea, or con stipation GENITOURINARY: Denies frequency, urgency, nocturia, hematuria or incontinence (Storage/Irritative symptoms.) Low urinary stream, straining to void, urinary intermittency or hesitancy, splitting of the voiding stream, terminal dribbling. ENDOCRINOLOGIC: Denies polyuria, polydipsia, polyphagia or heat/cold intoleranc es. HEMATOLOGIC: Denies thrombophilia/previous clots, or coagulopathy/bleeding disorders. ONCOLOGIC: Denies personal history of malignancy. DERMATOLOGIC: No edema, rash PSYCHIATRIC: Denies any suicidal or homicidal ideation. Denies hallucinations. PHYSICAL EXAM GENERAL APPEARANCE: The patient is awake, alert, and oriented, in no acute cardiopulmonary distress. NEUROLOGICAL: Cranial nerves II-XII grossly intact. Motor is 5/5 in bilateral upper and lower extremities proximal to distal. No sensory deficits. HEENT: Face is symmetric. Pupils are equal and reactive. Extraocular movements are intact. NECK: Supple. No JVD. No thyromegaly. No submental, submandibular, pre- /postauricular, occipital or supraclavicular lymphadenopathy. CHEST: Normal chest expansion. No Telemetry. LUNGS: Decreased breath sounds of the right lung base to the upper lung lance CARDIOVASCULAR: Regular. S1 and S2 normal. No appreciable rubs, murmurs or gallops. ABDOMEN: Abdomen is distended with fluid wave noted : Deferred. No Espinosa. EXTREMITIES: 2+ pitting edema noted of bilateral lower extremities. No clubbing. Good capillary refill. SKIN: No skin breakdown. Vital Signs (last 8hr) Date Time Temp Pulse Resp B/P (MAP) Pulse Ox O2 Delivery O2 Flow Rate FiO2 01/16/25 11:17 98.4 112 14 105/64 99 Room Air 01/16/25 08:15 98.4 105 18 114/67 97 Room Air 01/16/25 08:00 95 Room Air* 0 21 LABS: Laboratory: Test 01/16/25 04:03 01/15/25 04:31 Range/Units White Blood Count 9.6 4.8-10.8 K/uL Red Blood Count 2.48 L 4.50-6.20 MIL/uL Hemoglobin 8.3 L 14.0-18.0 g/dL Hematocrit 24.4 L 42-54 % Mean Corpuscular Volume 98.4 79-99 fL Mean Corpuscular Hemoglobin 33.5 H 27.0-33.0 pg Mean Corpuscular Hemoglobin Concent 34.0 32.0-36.0 g/dL Red Cell Distribution Width 21.1 H 11.0-15.5 % Platelet Count 98 L 130-400 K/uL Mean Platelet Volume 8.0 7.5-10.5 fL Nucleated Red Blood Cells 0.0 0.0-0.19 % Sodium Level 129 L 136-145 mmol/L Potassium Level 4.0 3.5-5.1 mmol/L Chloride Level 99 L 101-111 mmol/L Carbon Dioxide Level 28 21-32 mmol/L Blood Urea Nitrogen 7 7-18 mg/dL Creatinine 0.5 0.5-1.3 mg/dL Glomerular Filtration Rate Calc 123 >90 mL/min Random Glucose 119 H 70-105 mg/dL Total Calcium 7.1 L 8.5-10.1 mg/dL Phosphorus Level 2.4 L 2.5-4.9 mg/dL Magnesium Level 1.80 1.80-2.40 mg/dL Total Bilirubin 1.3 H 0.2-1.0 mg/dL Aspartate Amino Transf (AST/SGOT) 38 H 10-37 U/L Alanine Aminotransferase (ALT/SGPT) 12 12-78 U/L Alkaline Phosphatase 310 H 50-136 U/L Total Protein 5.0 L 6.0-8.3 g/dL Albumin 2.1 L 3.5-5.0 g/dL Immature Granulocyte % (Auto) 0.6 0-1 % Neutrophils (%) (Auto) 66.9 40.0-77.0 % Lymphocytes (%) (Auto) 20.6 L 21.0-51.0 % Monocytes (%) (Auto) 9.6 3.0-13.0 % Eosinophils (%) (Auto) 2.0 0.0-8.0 % Basophils (%) (Auto) 0.3 0.0-5.0 % Neutrophils # (Auto) 6.0 1.8-7.7 K/uL Lymphocytes # (Auto) 1.9 1.0-4.8 K/uL Monocytes # (Auto) 0.9 0.1-1.0 K/uL Eosinophils # (Auto) 0.18 0.00-0.70 K/uL Basophils # (Auto) 0.03 0.00-0.20 K/uL Absolute Immature Granulocyte (auto 0.05 0-1 K/uL Uric Acid 4.6 2.6-7.2 mg/dL Iron Level 34 #L 65-175 mcg/dL Total Iron Binding Capacity 41 L 250-450 mcg/dL Percent Iron Saturation 82.9 H 30-44 % Ferritin 192 30-400 ng/mL Current Medications Medications (Trade) Dose Ordered Sig/Ronak Route PRN Reason Start Time Stop Time Status Last Admin Dose Admin Acetaminophen (TYLenol 325MG TAB) 650 mg Q6H PRN PO MILD PAIN (1-3) 01/13/25 13:30 02/12/25 13:29 01/15/25 22:27 650 MG Albumin Human 50 ml @ 0 mls/hr Q6H IV 01/13/25 13:30 01/15/25 13:30 DC 01/15/25 13:03 50 MLS/HR Ceftriaxone Sodium (Rocephin 2gm Inj) 2 gm DAILY IVPB 01/14/25 09:00 01/24/25 08:59 01/16/25 07:59 2 GM Ceftriaxone Sodium (Rocephin 2gm Inj) 2 gm ONCE STAT IVPB 01/13/25 09:47 01/13/25 09:49 DC 01/13/25 12:01 2 GM Enoxaparin Sodium (Lovenox) 40 mg DAILY SQ 01/16/25 09:00 02/15/25 08:59 Hold Furosemide (LASix 20MG TAB) 20 mg DAILY PO 01/15/25 09:00 01/15/25 11:41 DC 01/15/25 09:17 20 MG Furosemide (LASix 40MG TAB) 40 mg DAILY PO 01/16/25 09:00 02/15/25 08:59 01/16/25 07:58 40 MG Ipratropium [place] (AtrovENT UD) 0.5 mg Q6H PRN IH SHORTNESS OF BREATH 01/13/25 13:30 02/12/25 13:29 Lactulose (Constulose 20gm/ 30ml Udcup) 20 gm BID PO 01/13/25 21:00 02/12/25 20:59 01/16/25 07:58 20 GM Magnesium Sulfate 50 ml @ 0 mls/hr PROTOCOL PRN IV MAGNESIUM PROTOCOL 01/14/25 17:00 02/13/25 16:59 Metronidazole/ Sodium Chloride (flaGYL) 500 mg Q8H IV 01/13/25 17:30 01/15/25 11:41 DC 01/15/25 10:36 500 MG Midodrine (PROAMatine 5 MG TABLET) 5 mg TID PO 01/13/25 14:00 02/12/25 13:59 01/16/25 13:11 5 MG Ondansetron HCl (zoFRAN 4MG INJ) 4 mg ONCE STAT IVP 01/13/25 09:47 01/13/25 09:49 DC 01/13/25 12:01 4 MG Ondansetron HCl (zoFRAN 4MG INJ) 4 mg Q6H PRN IVP NAUSEA/VOMITING 01/13/25 13:30 02/12/25 13:29 01/14/25 02:06 4 MG Pantoprazole Sodium (PROTonix 40MG INJ) 40 mg Q24H IVP 01/13/25 13:30 02/12/25 13:29 01/16/25 13:11 40 MG Spironolactone (Aldactone 25mg) 50 mg DAILY PO 01/15/25 09:00 01/15/25 11:41 DC 01/15/25 09:16 50 MG Spironolactone (Aldactone 25mg) 100 mg DAILY PO 01/16/25 09:00 02/15/25 08:59 01/16/25 07:58 100 MG Thiamine HCl (Vitamin B-1) 100 mg DAILY IVP 01/14/25 09:00 02/13/25 08:59 01/16/25 07:58 100 MG Vitamin B Complex/ Vit C/Folic Acid (Nephrovite Tablet) 1 cap DAILY PO 01/14/25 09:00 02/13/25 08:59 01/16/25 07:59 1 CAP DIAGNOSTICS / RADIOLOGY: [ ] ASSESSMENT: Tense/large volume ascites with decompensated alcoholic liver cirrhosis, POA Large right-sided pleural effusion with loculation, 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, POA Recent history of TIPS procedure for recurrent large volume ascites, POA Compressive right lung atelectasis from large right-sided pleural effusion, POA Acute on chronic hyponatremia, hypervolemic, POA Sinus tachycardia, POA History of portal hypertensive gastropathy, POA History of gastritis, POA Prior history of alcohol use, quit alcohol three months ago, POA Anemia, POA Coagulopathy, mild, secondary to underlying liver cirrhosis, POA History of subcapsular hematoma of the right subhepatic space noted on abdominal CT from 12/2024, from TIPS postprocedure, POA PLAN: Acute on chronic hyponatremia, hypervolemic * Sodium trends 125>128>127>125>129 * Nephrology was consulted * His cortisol is 9.7 so we ordered cosyntropin simulation test. * We are waiting for the sodium levels to be in the normal range then after that we can discharge him. Tense/large volume ascites with decompensated alcoholic liver cirrhosis, Recent history of TIPS procedure for recurrent large volume ascites, MELD Score 23 * Paracentesis ordered and 4.7 L of fluid removed * Fluid culture, fluid cell count, body fluid culture and body fluid cell count ordered * We spoke with Dr. Yoder regarding the revision of TIPS to increase he diameter of the shunt and he said that it takes 6 months for the ascites to get resolved after TIPS. Also his ascitic fluid volume is better today when compared to pre TIPS. 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 * Lasix 20 mg increased to 40 mg and spironolactone 50 mg increased to 100 mg Anemia * Hemoglobin of 8.3 * Monitor hemoglobin * Ordered iron panel * TIBC 41, iron 34, transferrin saturation 82.9 DVT prophylaxis with SCD. GI prophylaxis with pantoprazole. He is on heart healthy diet. ATTESTATION BY PHYSICIAN I have seen and examined the patient. I reviewed the documentation, medical decision making, and treatment plan as noted by the resident physician above. I agree with the findings and plan of care. MAGALI KRAUSE MD, AKSHAY MD Jan 16, 2025 15:50
[2025-01-17] VITALS (9 sets, daily range): BP systolic 106–124; BP diastolic 65–73; PULSE 101–113; RESP 14–20; TEMP 97.8–98.8; O2SAT 97–98
[2025-01-17 05:25] LABS: IMMATURE GRANULOCYTE ABSOLUTE 0.05 K/uL (0-1); NUCLEATED RED BLOOD CELLS 0.0 % (0.0-0.19); PLATELET COUNT (AUTO) 111 K/uL (130-400); RED BLOOD CELL COUNT(AUTO) 2.66 MIL/uL (4.50-6.20); RED CELL DISTRIBUTION WIDTH 21.3 % (11.0-15.5); WHITE BLOOD COUNT (AUTO) 11.0 K/uL (4.8-10.8)
[2025-01-17 05:39] LABS: ASPARTATE AMINOTRANSFERASE 38.0 U/L (10-37); CREATININE 0.6 mg/dL (0.5-1.3); GLOMERULAR FILTR. RATE CALC 116.0 mL/min (>90); GLUCOSE,RANDOM 104.0 mg/dL (70-105); SODIUM SERUM 129.0 mmol/L (136-145); TOTAL PROTEIN, SERUM 5.2 g/dL (6.0-8.3); UREA NITROGEN, BLOOD 9.0 mg/dL (7-18)
[2025-01-17] MEDS: SODIUM CHLORIDE 1,000 MG TAB PO SCH (09:44)
--- NOTE | 2025-01-17 11:38 | PN ---
[facility] PROGRESS NOTE Date Patient Seen: Jan 17, 2025 Time of Visit: 11:35 Supervising Physician: [Dr Pan Primary Care Physician: [Dr. Miko Moya] Outpatient Specialists: [ ] Inpatient Consults: [[facility] team-pulmichael, Dr. Gallo-nephro PROBLEM LIST: Loculated right pleural effusion, large-POA - s/p right thoracentesis 01/14/25 - Transudative as per Light's criteria Ascites with recurrent paracentesis-POA - s/p paracentesis 4.7 L removed 01/14/25 Alcoholic liver cirrhosis-POA: Child-santizo score=11 points: Child class C with life expectancy 1-3 years; MELD-Na score- 24 points=14-15% est 90-day mortality Acute on chronic hyponatremia-POA Hepatic transaminitis-POA Hyperbilirubinemia-POA Mild leukocytosis-POA Right lobe liver lesion-POA Hypoalbuminemia-POA CHRONIC PROBLEM LIST: Primary hypertension Hyperlipidemia S/p TIPS placement 12/2024 History of portal hypertensive gastropathy History of gastritis Prior history of alcohol and nicotine use, quit alcohol three months ago Anemia Coagulopathy, mild, secondary to underlying liver cirrhosis History of subcapsular hematoma of the right subhepatic space noted on abdominal CT from 12/2024, from TIPS postprocedure PLAN: Supplemental oxygen as needed PT currently on room air Continue Ceftriaxone and Flagyl IV Continue Lasix Continue spironolactone Dispo per primary team INTERVAL HISTORY: [Per hospitalist's notes: "54-year-old malen history of alcoholic liver cirrhosis, history of portal hypertensive gastropathy, recurrent ascites, recent history of [place] [facility] [place], chronic anemia, history of hyponatremia, presented to the ER for further evaluation of significant abdominal distention with associated nausea and vomiting. Patient reports that he has been having significant abdominal distention since discharge from the hospital on 12/31/2024., patient was [place] [facility] [place] and had an extended hospital stay if where he underwent tips placement for recurrent large volume ascites. Patient states that he has been trying to be compliant with his home medications. He remains on lactulose, midodrine at home. Unsure if patient has had compliance with oral diuretics as outpatient. Patient did not bring any of his home medications today to the ER. Also reports having significant abdominal pain due to progressive distention of the abdomen, currently rates the pain as 8/10 in severity. Oral intake has been poor due to abdominal distention.Patient reports that he gets short of breath with minimal activity. Denies any cough. Denies any pleurisy. Denies any recent history of hematochezia or melena." BIS team was consulted for loculated pleural effusion per CT report. [employer] services provided by [facility] [place]: Patient claims that he just recently had a paracentesis last Friday equivalent to 4.5 L fluid drained. Despite this, he still continues to experience shortness of breath that is worse on exertion. Yesterday, he came up here in the ER but was eventually sent home because he was told that nobody was availab le to tap him. He continues to have abdominal distention and pain with pain scale of 10/10. He claimed that he was doing well after his tips placement. Otherwise, he denies other constitutional symptoms. On my assessment, patient is currently on room air saturating 95-96%. He endorses a pain scale of 3/10. Abdomen is mildly soft but without board-like rigidity, BNP he has 3+ pitting edema. Patient is not encephalopathic. Goals of care was discussed with the patient verbalizing understanding and agreement. We will continue to follow along patient's response to treatment. On behalf of BIS team, thank you for allowing us to participate in Mr. German's care. 01/14 - patient is seen and evaluated at the bedside. Patient is sitting up in bed with no signs of acute distress. Patient remains on room air and denies chest discomfort, chest pain or dyspnea. Patient does admit minimal dyspnea with exertion however while at rest he is perfectly fine. No acute changes reported overnight. Patient does continue with abdominal distention. Recommend IR for right thoracentesis. Send pleural fluid for analysis. Patient is scheduled for a paracentesis today. Recommend continue Rocephin for SBP. Patient had abdominal ultrasound shows cirrhotic liver morphology with ascites. Patient's tips with peak systolic velocities proximal mid and distal are 95, 167 and 131 CMS/S. We will continue to follow up with you. Patient reports a recent paracentesis last Friday with 4.5 L removed. Patient may require restarting Lasix and spironolactone if ascites persists 01/15-Examined and assess patient is resting in bed in a high Boyce's position awake, alert, and oriented with no family members nor friends present, as well as in no acute distress. Accompanied by patient's bedside nurse. Reviewed and discussed with patient laboratory results, vital signs, and diagnostic procedures. 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 Location of liver side is a factor to where there is more fluid migrating to the right lower lobe area of the patient. After discussing this with the patient there are questions or concerns. Hemodynamically stable. Afebrile. A.m. labs ordered. Patient denies shortness or breath, fever, chills, nauseousness and constipation currently.. 01/16 - patient is seen and examined at the bedside. Patient is seen sitting up in bed appears to be weak and deconditioned. Patient reports he did not sleep well last night. Patient remains on room air with no signs of acute distress. Patient denies chest discomfort or chest pain at the time of my evaluation. No acute changes reported overnight. Recommend continue diuresing with Lasix and spironolactone. Vital signs are stable. Labs are within normal limits. Patient's sodium level continues to improve daily. Today's labs show 129 from 125 previously. Patient had a recent thoracentesis however fluid removal amount is unclear. Will repeat CXR in AM to re-evaluate the effusion. 01/17 - patient is seen lying in bed resting quietly does not appear to be in any acute distress at this time. Patient does continue to be weak and decondit ioned. Patient remains on room air and denies chest discomfort, chest pain or dyspnea at the time of my evaluation. No acute changes reported overnight. Patient continues diuresing with Lasix as well as spironolactone. Today's chest x-ray is currently pending. Vital Signs are stable. Labs are within normal limits. Patient discontinue with hyponatremia, recommend salt tabs. Continue to follow with you. REVIEW OF SYSTEMS: 12 point ROS reviewed with patient. Pertinent positives mentioned above. Otherwise negative. PHYSICAL EXAM: GENERAL: alert, weak, awake oriented x 3 HEENT: EOMI, Sclera non icteric, moist mucosa NECK: Supple, no JVD, trachea midline LUNGS: Clear breath sounds bilaterally. No wheezes HEART: Regular rate and rhythm. Normal S1 and S2, without murmurs Tachycardia ABD: Abdomen semi-firm, nontender. Bowel sounds present EXT: No clubbing cyanosis, 3+ pittind edema on BLE NEURO: Alert and oriented to person, follows commands Vital Signs (last 8hr) Date Time Temp Pulse Resp B/P (MAP) Pulse Ox O2 Delivery O2 Flow Rate FiO2 01/17/25 08:02 98.8 111 16 106/72 98 Room Air 01/17/25 06:32 104 20 N/A Room Air 21 01/17/25 04:15 97.9 101 19 124/72 96 Room Air 21 LABS: Hematology Labs: Test 01/17/25 05:12 Range/Units White Blood Count 11.0 H 4.8-10.8 K/uL Red Blood Count 2.66 L 4.50-6.20 MIL/uL Hemoglobin 9.0 L 14.0-18.0 g/dL Hematocrit 26.2 L 42-54 % Mean Corpuscular Volume 98.5 79-99 fL Mean Corpuscular Hemoglobin 33.8 H 27.0-33.0 pg Mean Corpuscular Hemoglobin Concent 34.4 32.0-36.0 g/dL Red Cell Distribution Width 21.3 H 11.0-15.5 % Platelet Count 111 L 130-400 K/uL Mean Platelet Volume 8.8 7.5-10.5 fL Immature Granulocyte % (Auto) 0.5 0-1 % Neutrophils (%) (Auto) 72.3 40.0-77.0 % Lymphocytes (%) (Auto) 16.7 L 21.0-51.0 % Monocytes (%) (Auto) 7.7 3.0-13.0 % Eosinophils (%) (Auto) 2.5 0.0-8.0 % Basophils (%) (Auto) 0.3 0.0-5.0 % Neutrophils # (Auto) 8.0 H 1.8-7.7 K/uL Lymphocytes # (Auto) 1.8 1.0-4.8 K/uL Monocytes # (Auto) 0.9 0.1-1.0 K/uL Eosinophils # (Auto) 0.27 0.00-0.70 K/uL Basophils # (Auto) 0.03 0.00-0.20 K/uL Absolute Immature Granulocyte (auto 0.05 0-1 K/uL Nucleated Red Blood Cells 0.0 0.0-0.19 % Chemistry Labs: Test 01/17/25 05:12 01/16/25 04:03 Range/Units Sodium Level 129 L 136-145 mmol/L Potassium Level 4.4 3.5-5.1 mmol/L Chloride Level 98 L 101-111 mmol/L Carbon Dioxide Level 26 21-32 mmol/L Blood Urea Nitrogen 9 7-18 mg/dL Creatinine 0.6 0.5-1.3 mg/dL Glomerular Filtration Rate Calc 116 >90 mL/min Random Glucose 104 70-105 mg/dL Total Calcium 7.1 L 8.5-10.1 mg/dL Magnesium Level 1.70 L 1.80-2.40 mg/dL Total Bilirubin 1.4 H 0.2-1.0 mg/dL Aspartate Amino Transf (AST/SGOT) 38 H 10-37 U/L Alanine Aminotransferase (ALT/SGPT) 14 12-78 U/L Alkaline Phosphatase 348 H 50-136 U/L Total Protein 5.2 L 6.0-8.3 g/dL Albumin 2.0 L 3.5-5.0 g/dL Phosphorus Level 2.4 L 2.5-4.9 mg/dL DIAGNOSTICS / RADIOLOGY RESULTS: [ ] PLAN NEURO: Minimize central acting medications as possible. Maintain fall precautions, adequate lighting during the day PULMONARY: Supplemental 02 as needed. Maintain aspiration precautions at all times CARDIOVASCULAR: Follow hemodynamics. Vital signs per facility protocol GI & NUTRITION: Continue with nutritional support. Continue stool softeners and laxatives as needed. KIDNEYS & ELECTROLYTES: Strict monitoring of intake, output and overall fluid balance. Avoid nephrotoxic medications to the extent possible. Medications to be dosed according to renal function. Monitor electrolytes and replace as needed ENDOCRINE: Maintain blood glucose between 100-180 at all times. Hypoglycemia protocol in place INFECTIOUS DISEASE: Trend temperature, WBC and procalcitonin level Follow cultures, deescalate antibiotics as soon as possible. Panculture if new onset fever ONCOLOGY/HEMATOLOGY/COAGULATION: Monitor for s/s of bleeding Monitor hemoglobin, coagulation studies as needed SKIN: Pressure ulcer prevention per facility protocol Specialty mattress ORTHO/REHAB: Continue PT/OT Prophylaxis: Continue GI and DVT prophylaxis Code Status: Full Resuscitation Disposition: As per attending. ATTESTATION BY PHYSICIAN I have evaluated the patient chart, medical records, and spoke with appropriate staff. I reviewed the documentation, medical decision making, and treatment plan as noted by the mid-level provider above. I agree with the findings and plan of care. Jeremias Pan MD, [employer] RETIREMENT ADMINISTRATOR Jan 17, 2025 11:38
--- NOTE | 2025-01-17 12:55 | PN ---
NEPHROLOGY PROGRESS NOTE Date/Time Patient Seen: Jan 17, 2025 SUBJECTIVE: This is a 54-year-old male history of alcoholic liver cirrhosis, history of portal hypertensive gastropathy, recurrent ascites, recent history of tips procedure by Dr. Molina in [facility] on 12/2024, chronic anemia, history of hyponat remia, He presented to the ER for further evaluation of significant abdominal distention with associated nausea and vomiting. S/p paracentesis with 4.7 L removed He has been started on Lasix and spironolactone. He was noted with hyponatremia We are consulted for hyponatremia Renal function is stable Sodium today 129 mmoL/L, other electrolytes are stable He continues on fluid restriction He has been started on sodium chloride tabs Pending GI recommendations He was seen in the medical floor, in no acute distress No family at the bedside Prognosis remains guarded REVIEW OF SYSTEMS: GENERAL: Negative for any nausea, vomiting, fevers, chills, or weight loss. NEUROLOGIC: Negative for any blurry vision, blind spots, double vision, facial asymmetry, dysphagia, dysarthria, hemiparesis, hemisensory deficits, vertigo, ataxia. HEENT: Negative for any head trauma, neck trauma, neck stiffness, photophobia, phonophobia, sinusitis, rhinitis. CARDIAC: Negative for any chest pain, dyspnea on exertion, paroxysmal nocturnal dyspnea, peripheral edema. PULMONARY: Negative for any shortness of breath, wheezing, COPD, or TB exposure. GASTROINTESTINAL: Negative for any abdominal pain, nausea, vomiting, bright red blood per rectum, melena. GENITOURINARY: Negative for any dysuria, hematuria, incontinence. INTEGUMENTARY: Negative for any rashes, cuts, insect bites. RHEUMATOLOGIC: Negative for any joint pains, photosensitive rashes, history of vasculitis or kidney problems. HEMATOLOGIC: Negative for any abnormal bruising, frequent infections or bleeding. Vital Signs (last 8hr) Date Time Temp Pulse Resp B/P (MAP) Pulse Ox O2 Delivery O2 Flow Rate FiO2 01/17/25 11:51 98.4 113 14 112/65 100 Room Air 01/17/25 08:02 98.8 111 16 106/72 98 Room Air 01/17/25 06:32 104 20 N/A Room Air 21 PHYSICAL EXAM: GENERAL: Alert and oriented x 3. No acute distress. Well-nourished. EYES: EOMI. Anicteric. HENT: Moist mucous membranes. No scleral icterus. No cervical lymphadenopathy. LUNGS: Clear to auscultation bilaterally. No accessory muscle use. CARDIOVASCULAR: Regular rate and rhythm. No murmur. No JVD. ABDOMEN: Soft, non-tender and non-distended. No palpable masses. EXTREMITIES: No edema. Non-tender. SKIN: No rashes or lesions. Warm. NEUROLOGIC: No focal neurological deficits. CN II-XII grossly intact, but not individually tested. PSYCHIATRIC: Cooperative. Appropriate mood and affect. Current Medications Medications (Trade) Dose Ordered Sig/Ronak Route Start Time Stop Time Status Last Admin Dose Admin Albumin Human 50 ml @ 0 mls/hr Q6H IV 01/13/25 13:30 01/15/25 13:30 01/15/25 06:20 50 MLS/HR Ceftriaxone Sodium (Rocephin 2gm Inj) 2 gm DAILY IVPB 01/14/25 09:00 01/24/25 08:59 01/15/25 09:16 2 GM Ceftriaxone Sodium (Rocephin 2gm Inj) 2 gm ONCE STAT IVPB 01/13/25 09:47 01/13/25 09:49 DC 01/13/25 12:01 2 GM Enoxaparin Sodium (Lovenox) 40 mg DAILY SQ 01/16/25 09:00 02/15/25 08:59 Future Hold Furosemide (LASix 20MG TAB) 20 mg DAILY PO 01/15/25 09:00 01/15/25 11:41 DC 01/15/25 09:17 20 MG Furosemide (LASix 40MG TAB) 40 mg DAILY PO 01/16/25 09:00 02/15/25 08:59 Lactulose (Constulose 20gm/ 30ml Udcup) 20 gm BID PO 01/13/25 21:00 02/12/25 20:59 01/15/25 09:25 20 GM Metronidazole/ Sodium Chloride (flaGYL) 500 mg Q8H IV 01/13/25 17:30 01/15/25 11:41 DC 01/15/25 10:36 500 MG Midodrine (PROAMatine 5 MG TABLET) 5 mg TID PO 01/13/25 14:00 02/12/25 13:59 01/15/25 09:23 5 MG Ondansetron HCl (zoFRAN 4MG INJ) 4 mg ONCE STAT IVP 01/13/25 09:47 01/13/25 09:49 DC 01/13/25 12:01 4 MG Pantoprazole Sodium (PROTonix 40MG INJ) 40 mg Q24H IVP 01/13/25 13:30 02/12/25 13:29 01/14/25 14:53 40 MG Spironolactone (Aldactone 25mg) 50 mg DAILY PO 01/15/25 09:00 01/15/25 11:41 DC 01/15/25 09:16 50 MG Spironolactone (Aldactone 25mg) 100 mg DAILY PO 01/16/25 09:00 02/15/25 08:59 Thiamine HCl (Vitamin B-1) 100 mg DAILY IVP 01/14/25 09:00 02/13/25 08:59 01/15/25 09:17 100 MG Vitamin B Complex/ Vit C/Folic Acid (Nephrovite Tablet) 1 cap DAILY PO 01/14/25 09:00 02/13/25 08:59 01/15/25 09:16 1 [facility] LABORATORY: [ ] Hematology Labs: Test 01/17/25 05:12 Range/Units White Blood Count 11.0 H 4.8-10.8 K/uL Red Blood Count 2.66 L 4.50-6.20 MIL/uL Hemoglobin 9.0 L 14.0-18.0 g/dL Hematocrit 26.2 L 42-54 % Mean Corpuscular Volume 98.5 79-99 fL Mean Corpuscular Hemoglobin 33.8 H 27.0-33.0 pg Mean Corpuscular Hemoglobin Concent 34.4 32.0-36.0 g/dL Red Cell Distribution Width 21.3 H 11.0-15.5 % Platelet Count 111 L 130-400 K/uL Mean Platelet Volume 8.8 7.5-10.5 fL Immature Granulocyte % (Auto) 0.5 0-1 % Neutrophils (%) (Auto) 72.3 40.0-77.0 % Lymphocytes (%) (Auto) 16.7 L 21.0-51.0 % Monocytes (%) (Auto) 7.7 3.0-13.0 % Eosinophils (%) (Auto) 2.5 0.0-8.0 % Basophils (%) (Auto) 0.3 0.0-5.0 % Neutrophils # (Auto) 8.0 H 1.8-7.7 K/uL Lymphocytes # (Auto) 1.8 1.0-4.8 K/uL Monocytes # (Auto) 0.9 0.1-1.0 K/uL Eosinophils # (Auto) 0.27 0.00-0.70 K/uL Basophils # (Auto) 0.03 0.00-0.20 K/uL Absolute Immature Granulocyte (auto 0.05 0-1 K/uL Nucleated Red Blood Cells 0.0 0.0-0.19 % Chemistry Labs: Test 01/17/25 12:26 01/17/25 05:12 01/16/25 04:03 Range/Units Lactic Acid Level 1.7 0.8-2.5 mmol/L C-Reactive Protein, Quantitative 22.80 H 0.5-3.0 mg/L Sodium Level 129 L 136-145 mmol/L Potassium Level 4.4 3.5-5.1 mmol/L Chloride Level 98 L 101-111 mmol/L Carbon Dioxide Level 26 21-32 mmol/L Blood Urea Nitrogen 9 7-18 mg/dL Creatinine 0.6 0.5-1.3 mg/dL Glomerular Filtration Rate Calc 116 >90 mL/min Random Glucose 104 70-105 mg/dL Total Calcium 7.1 L 8.5-10.1 mg/dL Magnesium Level 1.70 L 1.80-2.40 mg/dL Total Bilirubin 1.4 H 0.2-1.0 mg/dL Aspartate Amino Transf (AST/SGOT) 38 H 10-37 U/L Alanine Aminotransferase (ALT/SGPT) 14 12-78 U/L Alkaline Phosphatase 348 H 50-136 U/L Total Protein 5.2 L 6.0-8.3 g/dL Albumin 2.0 L 3.5-5.0 g/dL Phosphorus Level 2.4 L 2.5-4.9 mg/dL DIAGNOSTICS / RADIOLOGY: [address] [address] IMAGING REPORT Signed PATIENT: CHAN GARDINER MR#: [id number] : 1970 SEX: M AGE: 54 LOCATION: [facility] ORDER 1121 STATUS: ADM IN REPORT#: [id number] SERVICE 1100 REASON: POST RT THORACENTESIS ORDERING PHYSICIAN: ALYCE MOLINA MD PROCEDURE: CXR1VW - CHEST 1VW EXAM: CR Chest, 1 View. CLINICAL HISTORY: Post thoracocentesis COMPARISON: CR chest dated 01/13/2025 FINDINGS: Status post thoracocentesis. LUNGS AND PLEURAL SPACES: No pneumothorax. Slight interval improvement in the right moderate pleural effusion with adjacent lung atelectasis. The rest of the lungs are clear. MEDIASTINUM: The cardiomediastinal silhouette is within normal limits. BONES: No aggressive appearing osseous lesion seen. IMPRESSION: 1. Slight interval improvement in right moderate pleural effusion with adjacent lung atelectasis. 2. No acute pulmonary findings. /[place] DICTATED BY: MARIANN HOWARD Jr., MD DATE: 01/15/25822 ELECTRONICALLY SIGNED BY: MARIANN HOWARD Jr., MD DATE: 01/15/25822 PATIENT: CHAN GARDINER MR#: [id number] : 1970 SEX: M AGE: 54 LOCATION: [facility] ORDER 1031 STATUS: ADM IN REPORT#: [id number] SERVICE 1028 REASON: Rule out thromboembolism ORDERING PHYSICIAN: MANUEL TRUJILLO MD PROCEDURE: VENOUS RAYNA - US VENOUS DOPPLER BILATERAL EXAM: UPPER EXTREMITY VENOUS ULTRASOUND, BILATERAL (LIMITED) Technique: Real-time grayscale ultrasound with color and spectral Doppler of the bilateral upper extremity venous system, including compression maneuvers where technically feasible. Contrast: No intravenous contrast administered. Clinical Information: Rule out thromboembolism Comparison: None. Findings: Bilateral upper extremity venous system: Bilateral subclavian, axillary, brachial, basilic, cephalic, radial, and ulnar veins are patent without intraluminal thrombus; veins are compressible where accessible with normal color Doppler flow. Impression: No deep venous thrombosis identified in the evaluated bilateral upper extremity veins. No superficial venous thrombosis identified. /[place] DICTATED BY: TYRONE NOLEN MD DATE: 01/15/25912 ELECTRONICALLY SIGNED BY: TYRONE NOLEN MD DATE: 01/15/25912 PATIENT: CHAN GARDINER MR#: [id number] : 1970 SEX: M AGE: 54 LOCATION: [facility] ORDER 1304 STATUS: ADM IN REPORT#: [id number] SERVICE 9 REASON: diagnotic and therapeutic paracentesis, cirrhosis,ascitic fluid to be sent ORDERING PHYSICIAN: CATRACHITA TENORIO MD PROCEDURE: PARA ABD - US ABDOMINAL PARACENTESIS IR US ABDOMINAL PARACENTESIS IR REASON: diagnotic and therapeutic paracentesis, cirrhosis,ascitic fluid to be sent TECHNIQUE: Paracentesis was performed with ultrasound guidance. The puncture site was selected in the Right lower quadrant and overlying skin prepped and draped in a sterile fashion. 1% Xylocaine infiltration was performed. Catheter was placed in the fluid using trocar technique. 4.7 L were removed. Fluid sample was submitted for laboratory evaluation. The patient showed no evidence of complication during the procedure. Patient tolerated procedure well. IMPRESSION: 1. Ultrasound-guided paracentesis. DICTATED BY: ALYCE MOLINA MD DATE: 01/14/25 1451 ELECTRONICALLY SIGNED BY: ALYCE MOLINA MD DATE: 01/14/251499 PATIENT: CHAN GARDINER MR#: [id number] : 1970 SEX: M AGE: 54 LOCATION: [facility] ORDER 1304 STATUS: ADM IN REPORT#: [id number] SERVICE 08 REASON: diagnotic and therapeutic paracentesis, cirrhosis,ascitic fluid to be sent ORDERING PHYSICIAN: CATRACHITA TENORIO MD PROCEDURE: PARA ABD - US ABDOMINAL PARACENTESIS IR US ABDOMINAL PARACENTESIS IR REASON: diagnotic and therapeutic paracentesis, cirrhosis,ascitic fluid to be sent TECHNIQUE: Paracentesis was performed with ultrasound guidance. The puncture site was selected in the Right lower quadrant and overlying skin prepped and draped in a sterile fashion. 1% Xylocaine infiltration was performed. Catheter was placed in the fluid using trocar technique. 4.7 L were removed. Fluid sample was submitted for laboratory evaluation. The patient showed no evidence of complication during the procedure. Patient tolerated procedure well. IMPRESSION: 1. Ultrasound-guided paracentesis. DICTATED BY: ALYCE MOLINA MD DATE: 01/14/25 1451 ELECTRONICALLY SIGNED BY: ALYCE MOLINA MD DATE: 01/14/25 1500 PATIENT: CHAN GARDINER MR#: [id number] : 1970 SEX: M AGE: 54 LOCATION: [facility] ORDER 7 STATUS: REG REPORT#: [id number] SERVICE 6 REASON: vomiting and ascites ORDERING PHYSICIAN: RACHEL MAZARIEGOS MD PROCEDURE: ABD PELVWO - CT ABD/PEL WO CON RENAL/APPY EXAM: CT Abdomen and Pelvis Without IV Contrast CLINICAL HISTORY: Vomiting and ascites. TECHNIQUE: Axial computed tomography images of the abdomen and pelvis acquired without intravenous contrast. Dose optimization techniques applied. Total DLP: 408 mGy???cm. CONTRAST: No IV contrast administered. COMPARISON: Ultrasound Abdomen (US/SD) dated 12/29/2024, which demonstrated a large heterogeneous right hepatic lobe lesion (10.8 ??? 2.9 ??? 9.4 cm) superior to the TIPS tract, absent shunt flow suggesting possible TIPS occlusion or thrombosis, reduced portal vein flow, new ascites, and right pleural effusion with basal lung collapse. FINDINGS: LUNG BASES: Gross loculated right pleural collection measuring up to 7.0 cm in maximum thickness, causing compression atelectasis of the adjacent right lower lobe. No left-sided effusion or consolidation. LIVER: Cirrhotic morphology with coarse, nodular surface contour. An ill-defined, faintly heterogeneous hypodense lesion is noted in the right lobe of the liver along the lateral margin of the TIPS shunt, measuring approximately 5.0 ??? 4.8 cm. This lesion may represent a residual or evolving hematoma or post-procedural collection; however, further characterization requires contrast-enhanced imaging. No other discrete enhancing lesion is seen within the limitations of the non-contrast study. TIPS SHUNT: TIPS shunt visualized between the right portal and hepatic veins. Assessment of shunt patency is limited on non-contrast imaging. No displacement or gross thrombosis evident. GALLBLADDER AND BILE DUCTS: Gallbladder normal in size and wall thickness. No cholelithiasis or biliary dilatation. PANCREAS: Normal in size and attenuation. SPLEEN: Normal in size and homogeneous attenuation. ADRENAL GLANDS: Unremarkable. KIDNEYS, URETERS, AND BLADDER: Normal cortical thickness and attenuation. No hydronephrosis or calculi. Urinary bladder normal. STOMACH AND BOWEL: Non-dilated bowel loops with preserved mural thickness. No obstruction or perforation. APPENDIX: Normal in caliber. No periappendiceal inflammation. PERITONEUM: Gross ascites throughout the abdomen and pelvis. No free air. LYMPH NODES: No abnormally enlarged mesenteric or retroperitoneal lymph nodes. REPRODUCTIVE ORGANS: Within normal limits as visualized. VASCULATURE: Major abdominal vessels are patent. No aneurysm or thrombosis. BONES AND SOFT TISSUES: No acute osseous or soft tissue abnormality.IMPRESSION: 1. Ill-defined, hypodense right hepatic lobe lesion (5.0 x 4.8 cm) along the lateral margin of the TIPS shunt, reduced in size from prior ultrasound. Indeterminate on non-contrast study; contrast-enhanced CT or MRI recommended for further characterization. 2. Large loculated right pleural effusion (7.0 cm maximum thickness) with compression atelectasis of the adjacent right lower lobe. 3. Cirrhotic liver morphology with gross ascites throughout the abdomen and pelvis. 4. TIPS shunt in situ between right portal and hepatic veins; patency indeterminate without contrast. 5. No other acute intra-abdominal or pelvic abnormalities detected within the limitations of non-contrast imaging. 6. Compared with the prior abdominal ultrasound dated 12/29/2024, the previously described heterogeneous right hepatic lesion (10.8 ??? 2.9 ??? 9.4 cm) has reduced in size to approximately 5.0 ??? 4.8 cm, now appearing ill-defined and hypodense. Persistent ascites and new organization of the right pleural fluid into a loculated collection (7 cm) with lower lobe atelectasis are noted. The TIPS shunt remains in position; however, shunt patency cannot be reassessed without contrast or Doppler evaluation. No new hepatic or extrahepatic lesion identified. /[place] DICTATED BY: TYRONE NOLEN MD DATE: 01/13/251303 ELECTRONICALLY SIGNED BY: TYRONE NOLEN MD DATE: 01/13/251303 PATIENT: CHAN GARDINER MR#: [id number] : 1970 SEX: M AGE: 54 LOCATION: [facility] ORDER 9 STATUS: REG ER REPORT#: [id number] SERVICE 8 REASON: sob ORDERING PHYSICIAN: RACHEL MAZARIEGOS MD PROCEDURE: CXR1VW - CHEST 1VW EXAM: CR Chest, 1 View. CLINICAL HISTORY: sob COMPARISON: Radiograph dated December 18, 2024 Findings: AP view of the chest is submitted. Large right pleural effusion with suggestion of a loculated component. Subjacent airspace disease may reflect atelectasis and/or an infectious/inflammatory process. The left lung is clear. No pneumothorax. Heart size and pulmonary vessels are within normal limits. IMPRESSION: 1. Large right pleural effusion with possible loculation. 2. Right lower lobe airspace disease, potentially atelectasis or pneumonia. /[place] DICTATED BY: MARIANN HOWARD Jr., MD DATE: 01/13/251302 ELECTRONICALLY SIGNED BY: MARIANN HOWARD Jr., MD DATE: 01/13/251302 ASSESSMENT: Hyponatremia Ascites patient has cirrhosis of liver with alcohol abuse before Large right-sided pleural effusion Sinus tachycardia, POA History of portal hypertensive gastropathy, POA History of gastritis, POA Prior history of alcohol use, quit alcohol three months ago, POA Anemia, POA PLAN: Labs, diagnostic, radiologic exams reviewed and interpreted by myself and supervising physician. We have reviewed external records in detail Recommend discontinue sodium chloride tablets due to high-risk of fluid overload and worsening ascites Pending GI recommendations 1.5 fluid restriction is advised Continue with diuretics Require close monitoring of renal function and electrolytes Order CBC, CMP,electrolytes in am BiPAP as necessary, for respiratory distress Monitor blood pressure adjust medication doses as needed Avoid hypotensive episodes May use Dilaudid 0.5 mg IV every 6 hours as needed for severe pain Monitor blood sugars Strict intake, output, and daily weight should be monitored Please renally adjust medications Avoid nephrotoxic and nonsteroidal drugs Avoid contrast if possible Will continue to monitor renal function, anemia, electrolytes Treatment plan discussed with patient Questions were answered We have discussed with the other team physicians in detail about the care plan We will continue to monitor the patient closely ATTESTATION BY PHYSICIAN I have seen and examined the patient. I reviewed the documentation, medical decision making, and treatment plan as noted by the mid-level provider above. I agree with the findings and plan of care. HARJINDER CORTÉS MD, [facility] Jan 17, 2025 12:55
[2025-01-17] MEDS: MAGNESIUM 2GM PREMIX 50ML 50 ML IV PRN (13:15)
--- NOTE | 2025-01-17 16:56 | PN ---
[facility] PROGRESS NOTE Date of Service: Jan 17, 2025 Time of Service: 16:56 SUBJECTIVE: 54-year-old malen history of alcoholic liver cirrhosis, history of portal hypertensive gastropathy, recurrent ascites, recent history of tips procedure by Dr. Yoder in [facility] [place], chronic anemia, history of hyponatremia, presented to the ER for further evaluation of significant abdominal distention with associated nausea and vomiting. Patient reports that he has been having significant abdominal distention since discharge from the hospital on 12/31/2024., patient was previously hospitalized in [facility] [place]/2024 and had an extended hospital stay if where he underwent tips placement for recurrent large volume ascites. Patient states that he has been trying to be compliant with his home medications. He remains on lactulose, midodrine at home. Unsure if patient has had compliance with oral diuretics as outpatient. Patient did not bring any of his home medications today to the ER. Also reports having significant abdominal pain due to progressive distention of the abdomen, currently rates the pain as 8/10 in severity. Oral intake has been poor due to abdominal distention. Patient reports that he gets short of breath with minimal activity. Denies any cough. Denies any pleurisy. Denies any recent history of hematochezia or melena.On presentation to the hospital, patient was noted to be afebrile and tachycardic with heart rate in the 110s-120s, blood pressure of 137/94 and saturating greater than 97% on room air. [place] [address], hemoglobin 10.1, platelet count of 560061. BMP showed sodium 125, potassium 4.2, BUN of 16, creatinine of 0.8, lactic acid of 1.9, AST of 56, ALT of 18, alkaline phosphatase of 335, albumin of 1.6.Patient underwent further evaluation with chest x-ray which showed findings of large right-sided pleural effusion with possible loculation and compressive atelectasis of the right lower lobe of the lung.CT of the abdomen pelvis without contrast showed large volume ascites with large loculated right- sided pleural effusion with tips shunt noted. Patient did have subscapular hematoma noted on CT abdomen pelvis from 12/30/2024 after tips procedure. Per radiology, the ill-defined collection looks reduced in size from prior imaging. 01/14 The patient was seen and examined at the bedside. As the patient speaks Georgian only, a nurse was used as a performance architect. The patient stated that he is feeling better now but still has shortness of breath on exertion. The patient was planned for a paracentesis and thoracocentesis today. Interventional Radiology ordered chest x-ray, fluid culture, fluid cell count, body fluid culture and body fluid cell count. Pleural fluid protein, fungal culture pleural fluid, pleural fluid AFB culture, pleural fluid culture, pleural fluid cell count, pleural fluid glucose, pleural fluid pH and pleural fluid LDH was also ordered. Bilateral upper extremity Doppler also ordered. The patient had hyponatremia therefore Nephrology was consulted and they ordered cortisol a.m., urine and serum osmolality. Pulmonology was consulted for large loculated right-sided pleural effusion and also ordered CEA, cancer antigen, AFP. 01/15 The patient was seen and examined at the bedside. As the patient speaks Georgian only, a nurse was used as a performance architect. The patient stated that he is feeling weak and would required some physical therapy therefore physical therapy was ordered. Due to patient's consistent hyponatremia, Lasix was increased to 40 mg daily and spironolactone increased to 100 mg daily. Patient was kept on1 L per24 hour fluid restriction. IV ceftriaxone was continued and metronidazole was stopped. The plan is to contact Dr. Yoder to ask if anything can be done for TIPS to do with patient's ascites. A gastroenterology consult was also placed. The albumin dose of the be finished today. As per the primary team, the patient has poor prognosis. Bilateral upper extremity ultrasound was negative for deep or superficial thrombosis. CEA (4.8), AFP (2.1) and CA 19-9 (2) . As per the patient the patient used to smoke 3-4 cigarettes a week for a very long time but has smoked in the past 3 months. As per the patient, he has not drink alcohol in the past few months 01/16/2025: Patient is seen and evaluated in the room 408. As the patient speaks Georgian only, a nurse was used as a performance architect. The patient stated that he is feeling weak and would required some physical therapy therefore physical therapy was ordered. Also complained that he is having shortness of breath and abdominal pain. His vitals are in the normal range except for pulse 112. His labs are normal except for hemoglobin 8.3, platelet 98, sodium 129, chloride 99, phosphorus 2.4, AST 38, ALP 310. His ascitic fluid culture showed no growth after 16-23 hours. His AFB smear of ascitic fluid show no acid fast bacilli seen. His blood culture show no growth after 3 days. As his cortisol is 9.7 so we ordered cosyntropin simulation test. We spoke with Dr. Yoder regarding the revision of TIPS to increase he diameter of the shunt and he said that it takes 6 months for the ascites to get resolved after TIPS. Also his ascitic fluid v olume is better today when compared to pre TIPS. We are also waiting for the sodium levels to be in the normal range then after that we can discharge him. 01/17/2025: Patient was seen and evaluated bedside in room 408. Patient speaks Georgian only, a nurse was he was thus performance architect. Patient was awake alert, oriented x3 and lying on bed comfortably at the time of visit. Patient's heart rate in the 100s and 110s, white count has been trended up to 11.0 from 9.6, we ordered urinalysis, protocol, lactic acid, CRP. Patient's sodium stable at 129, on 1.5 L strict fluid restriction. Patient was educated that it will take about 6 months for ascites to resolved completely after tips procedure. Pending urinalysis results, we will discharge the patient tomorrow. REVIEW OF SYSTEMS CONSTITUTIONAL: Denies fevers, chills, or night sweats. No unintentional weight loss reported. NEUROLOGICAL: Denies headache, amaurosis fugax, motor weakness, sensory deficit, vertigo/spinning sensation, gait abnormalities, or tremors. ENT: No hearing loss, otalgia, otorrhea, rhinitis, rhinorrhea, hoarseness, or sore throat. CARDIOVASCULAR: Denies any exertional angina, dyspnea on exertion, orthopnea, paroxysmal nocturnal dyspnea, palpitations, life-threatening arrhythmias, claudication. PULMONARY: Patient reports having shortness of breath with minimal activity SLEEP: Denies morning headaches, daytime somnolence or napping. Denies difficulty falling asleep, staying asleep, waking from sleep. Denies knowledge of snoring. GASTROINTESTINAL: abdominal pain, No nausea, vomiting, diarrhea, or constipation GENITOURINARY: Denies frequency, urgency, nocturia, hematuria or incontinence (Storage/Irritative symptoms.) Low urinary stream, straining to void, urinary intermittency or hesitancy, splitting of the voiding stream, terminal dribbling. ENDOCRINOLOGIC: Denies polyuria, polydipsia, polyphagia or heat/cold intolerances. HEMATOLOGIC: Denies thrombophilia/previous clots, or coagulopathy/bleeding disorders. ONCOLOGIC: Denies personal history of malignancy. DERMATOLOGIC: No edema, rash PSYCHIATRIC: Denies any suicidal or homicidal ideation. Denies hallucinations. PHYSICAL EXAM GENERAL APPEARANCE: The patient is awake, alert, and oriented, in no acute cardiopulmonary distress. NEUROLOGICAL: Cranial nerves II-XII grossly intact. Motor is 5/5 in bilateral upper and lower extremities proximal to distal. No sensory deficits. HEENT: Face is symmetric. Pupils are equal and reactive. Extraocular movements are intact. NECK: Supple. No JVD. No thyromegaly. No submental, submandibular, pre- /postauricular, occipital or supraclavicular lymphadenopathy. CHEST: Normal chest expansion. No Telemetry. LUNGS: Decreased breath sounds of the right lung base to the upper lung lance CARDIOVASCULAR: Regular. S1 and S2 normal. No appreciable rubs, murmurs or gallops. ABDOMEN: Abdomen is distended with fluid wave noted : Deferred. No Espinosa. EXTREMITIES: 2+ pitting edema noted of bilateral lower extremities. No clubbing. Good capillary refill. SKIN: No skin breakdown. Vital Signs (last 8hr) Date Time Temp Pulse Resp B/P (MAP) Pulse Ox O2 Delivery O2 Flow Rate FiO2 01/17/25 11:51 98.4 113 14 112/65 100 Room Air LABS: Laboratory: Test 01/17/25 12:26 01/17/25 05:12 01/16/25 04:03 Range/Units Lactic Acid Level 1.7 0.8-2.5 mmol/L C-Reactive Protein, Quantitative 22.80 H 0.5-3.0 mg/L Procalcitonin 0.05 0.05-0.5 ng/mL White Blood Count 11.0 H 4.8-10.8 K/uL Red Blood Count 2.66 L 4.50-6.20 MIL/uL Hemoglobin 9.0 L 14.0-18.0 g/dL Hematocrit 26.2 L 42-54 % Mean Corpuscular Volume 98.5 79-99 fL Mean Corpuscular Hemoglobin 33.8 H 27.0-33.0 pg Mean Corpuscular Hemoglobin Concent 34.4 32.0-36.0 g/dL Red Cell Distribution Width 21.3 H 11.0-15.5 % Platelet Count 111 L 130-400 K/uL Mean Platelet Volume 8.8 7.5-10.5 fL Immature Granulocyte % (Auto) 0.5 0-1 % Neutrophils (%) (Auto) 72.3 40.0-77.0 % Lymphocytes (%) (Auto) 16.7 L 21.0-51.0 % Monocytes (%) (Auto) 7.7 3.0-13.0 % Eosinophils (%) (Auto) 2.5 0.0-8.0 % Basophils (%) (Auto) 0.3 0.0-5.0 % Neutrophils # (Auto) 8.0 H 1.8-7.7 K/uL Lymphocytes # (Auto) 1.8 1.0-4.8 K/uL Monocytes # (Auto) 0.9 0.1-1.0 K/uL Eosinophils # (Auto) 0.27 0.00-0.70 K/uL Basophils # (Auto) 0.03 0.00-0.20 K/uL Absolute Immature Granulocyte (auto 0.05 0-1 K/uL Nucleated Red Blood Cells 0.0 0.0-0.19 % Sodium Level 129 L 136-145 mmol/L Potassium Level 4.4 3.5-5.1 mmol/L Chloride Level 98 L 101-111 mmol/L Carbon Dioxide Level 26 21-32 mmol/L Blood Urea Nitrogen 9 7-18 mg/dL Creatinine 0.6 0.5-1.3 mg/dL Glomerular Filtration Rate Calc 116 >90 mL/min Random Glucose 104 70-105 mg/dL Total Calcium 7.1 L 8.5-10.1 mg/dL Magnesium Level 1.70 L 1.80-2.40 mg/dL Total Bilirubin 1.4 H 0.2-1.0 mg/dL Aspartate Amino Transf (AST/SGOT) 38 H 10-37 U/L Alanine Aminotransferase (ALT/SGPT) 14 12-78 U/L Alkaline Phosphatase 348 H 50-136 U/L Total Protein 5.2 L 6.0-8.3 g/dL Albumin 2.0 L 3.5-5.0 g/dL Phosphorus Level 2.4 L 2.5-4.9 mg/dL Current Medications Medications (Trade) Dose Ordered Sig/Ronak Route PRN Reason Start Time Stop Time Status Last Admin Dose Admin Acetaminophen (TYLenol 325MG TAB) 650 mg Q6H PRN PO MILD PAIN (1-3) 01/13/25 13:30 02/12/25 13:29 01/16/25 21:07 650 MG Albumin Human 50 ml @ 0 mls/hr Q6H IV 01/13/25 13:30 01/15/25 13:30 DC 01/15/25 13:03 50 MLS/HR Ceftriaxone Sodium (Rocephin 2gm Inj) 2 gm DAILY IVPB 01/14/25 09:00 01/24/25 08:59 01/17/25 09:45 2 GM Ceftriaxone Sodium (Rocephin 2gm Inj) 2 gm ONCE STAT IVPB 01/13/25 09:47 01/13/25 09:49 DC 01/13/25 12:01 2 GM Enoxaparin Sodium (Lovenox) 40 mg DAILY SQ 01/16/25 09:00 01/17/25 07:24 DC Furosemide (LASix 20MG TAB) 20 mg DAILY PO 01/15/25 09:00 01/15/25 11:41 DC 01/15/25 09:17 20 MG Furosemide (LASix 40MG TAB) 40 mg DAILY PO 01/16/25 09:00 02/15/25 08:59 01/17/25 09:45 40 MG Ipratropium Yantis (AtrovENT UD) 0.5 mg Q6H PRN IH SHORTNESS OF BREATH 01/13/25 13:30 02/12/25 13:29 Lactulose (Constulose 20gm/ 30ml Udcup) 20 gm BID PO 01/13/25 21:00 02/12/25 20:59 01/17/25 09:44 20 GM Magnesium Sulfate 50 ml @ 0 mls/hr PROTOCOL PRN IV MAGNESIUM PROTOCOL 01/14/25 17:00 02/13/25 16:59 01/17/25 13:15 25 MLS/HR Metronidazole/ Sodium Chloride (flaGYL) 500 mg Q8H IV 01/13/25 17:30 01/15/25 11:41 DC 01/15/25 10:36 500 MG Midodrine (PROAMatine 5 MG TABLET) 5 mg TID PO 01/13/25 14:00 02/12/25 13:59 01/17/25 13:15 5 MG Ondansetron HCl (zoFRAN 4MG INJ) 4 mg ONCE STAT IVP 01/13/25 09:47 01/13/25 09:49 DC 01/13/25 12:01 4 MG Ondansetron HCl (zoFRAN 4MG INJ) 4 mg Q6H PRN IVP NAUSEA/VOMITING 01/13/25 13:30 02/12/25 13:29 01/14/25 02:06 4 MG Pantoprazole Sodium (PROTonix 40MG INJ) 40 mg Q24H IVP 01/13/25 13:30 02/12/25 13:29 01/17/25 13:15 40 MG Sodium Chloride (Sodium Chloride) 1,000 mg BID PO 01/17/25 09:00 01/17/25 14:53 DC 01/17/25 09:44 1,000 MG Spironolactone (Aldactone 25mg) 50 mg DAILY PO 01/15/25 09:00 01/15/25 11:41 DC 01/15/25 09:16 50 MG Spironolactone (Aldactone 25mg) 100 mg DAILY PO 01/16/25 09:00 02/15/25 08:59 01/17/25 09:44 100 MG Thiamine HCl (Vitamin B-1) 100 mg DAILY IVP 01/14/25 09:00 02/13/25 08:59 01/17/25 09:45 100 MG Vitamin B Complex/ Vit C/Folic Acid (Nephrovite Tablet) 1 cap DAILY PO 01/14/25 09:00 02/13/25 08:59 01/17/25 09:45 1 CAP DIAGNOSTICS / RADIOLOGY: [ ] ASSESSMENT: Tense/large volume ascites with decompensated alcoholic liver cirrhosis, POA Large right-sided pleural effusion with loculation, 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, POA Recent history of TIPS procedure for recurrent large volume ascites, POA Compressive right lung atelectasis from large right-sided pleural effusion, POA Acute on chronic hyponatremia, hypervolemic, POA Sinus tachycardia, POA History of portal hypertensive gastropathy, POA History of gastritis, POA Prior history of alcohol use, quit alcohol three months ago, POA Anemia, POA Coagulopathy, mild, secondary to underlying liver cirrhosis, POA History of subcapsular hematoma of the right subhepatic space noted on abdominal CT from 12/2024, from TIPS postprocedure, POA PLAN: Acute on chronic hyponatremia, hypervolemic * Sodium trends 125>128>127>125>129>129 * Nephrology was consulted * We are waiting for the sodium levels to be in the normal range then after that we can discharge him. Tense/large volume ascites with decompensated alcoholic liver cirrhosis, Recent history of TIPS procedure for recurrent large volume ascites, MELD Score 23 * Paracentesis ordered and 4.7 L of fluid removed * Fluid culture, fluid cell count, body fluid culture and body fluid cell count ordered * We spoke with Dr. Yoder regarding the revision of TIPS to increase he diameter of the shunt and he said that it takes 6 months for the ascites to get resolved after TIPS. Also his ascitic fluid volume is better today when compared to pre TIPS. 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 * Lasix 20 mg increased to 40 mg and spironolactone 50 mg increased to 100 mg Anemia * Hemoglobin of 9.0 * Monitor hemoglobin * Ordered iron panel * TIBC 41, iron 34, transferrin saturation 82.9 DVT prophylaxis with SCD. GI prophylaxis with pantoprazole. He is on heart healthy diet. ATTESTATION BY PHYSICIAN I have seen and examined the patient. I reviewed the documentation, medical decision making, and treatment plan as noted by the resident physician above. I agree with the findings and plan of care. MAGALI KRAUSE MD, ADIL SHAH QUADRI MD Jan 17, 2025 16:56
[2025-01-17 22:50] LABS: APPEARANCE,URINE CLEAR (CLEAR); GLUCOSE, URINE (UA) NEGATIVE (NEGATIVE); LEUKOCYTE ESTERASE ,URINE NEGATIVE Leu/uL (NEGATIVE); NITRATE,URINE NEGATIVE (NEGATIVE); OCCULT BLOOD,URINE NEGATIVE (NEGATIVE)
[2025-01-17 22:56] LABS: ADD UA MICROSCOPIC YES
[2025-01-17 22:58] LABS: SQUAMOUS EPITHELIAL CELL,UR RARE /HPF (0-2)
[2025-01-18] VITALS: BP 112/77; PULSE 94; RESP 18; TEMP 98.3
[2025-01-18 04:00] VITALS: BP 109/66; PULSE 88; RESP 18; TEMP 98
[2025-01-18 04:45] LABS: IMMATURE GRANULOCYTE ABSOLUTE 0.08 K/uL (0-1); NUCLEATED RED BLOOD CELLS 0.0 % (0.0-0.19); PLATELET COUNT (AUTO) 101 K/uL (130-400); RED BLOOD CELL COUNT(AUTO) 2.65 MIL/uL (4.50-6.20); RED CELL DISTRIBUTION WIDTH 21.6 % (11.0-15.5); WHITE BLOOD COUNT (AUTO) 9.8 K/uL (4.8-10.8)
[2025-01-18 05:08] LABS: ASPARTATE AMINOTRANSFERASE 37.0 U/L (10-37); CREATININE 0.8 mg/dL (0.5-1.3); GLOMERULAR FILTR. RATE CALC 106.0 mL/min (>90); GLUCOSE,RANDOM 106.0 mg/dL (70-105); SODIUM SERUM 127.0 mmol/L (136-145); TOTAL PROTEIN, SERUM 5.2 g/dL (6.0-8.3); UREA NITROGEN, BLOOD 11.0 mg/dL (7-18)
[2025-01-18 06:15] VITALS: PULSE 91; RESP 20; O2SAT 100
[2025-01-18 07:24] VITALS: BP 103/61; PULSE 101; RESP 16; TEMP 98.2
--- NOTE | 2025-01-18 07:47 | HMCIMG ---
EXAM: CR Chest, 1 View. CLINICAL HISTORY: effusion COMPARISON: 01/14/2025 FINDINGS: LUNGS: Interval reduction in the right moderate pleural effusion with adjacent lung atelectasis. The rest of the lungs are clear. PLEURAL SPACES: No pneumothorax. MEDIASTINUM: The cardiomediastinal silhouette is within normal limits. BONES: No acute osseous abnormality. IMPRESSION: Interval reduction in right pleural effusion with adjacent lung atelectasis. /[place]
[2025-01-18 08:00] VITALS: O2SAT 100
--- NOTE | 2025-01-18 10:08 | PN ---
[facility] PROGRESS NOTE Date Patient Seen: Jan 18, 2025 Time of Visit: 10:08 Supervising Physician: Dr. Ana Persaud Primary Care Physician: [Dr. Miko Moya] Outpatient Specialists: [ ] Inpatient Consults: [[facility] team-Dr. Cleo philippe-nephro PROBLEM LIST: Loculated right pleural effusion, large-POA - s/p right thoracentesis 01/14/25 - Transudative as per Light's criteria Ascites with recurrent paracentesis-POA - s/p paracentesis 4.7 L removed 01/14/25 Alcoholic liver cirrhosis-POA: Child-santizo score=11 points: Child class C with life expectancy 1-3 years; MELD-Na score- 24 points=14-15% est 90-day mortality Acute on chronic hyponatremia-POA Hepatic transaminitis-POA Hyperbilirubinemia-POA Mild leukocytosis-POA Right lobe liver lesion-POA Hypoalbuminemia-POA CHRONIC PROBLEM LIST: Primary hypertension Hyperlipidemia S/p TIPS placement 12/2024 History of portal hypertensive gastropathy History of gastritis Prior history of alcohol and nicotine use, quit alcohol three months ago Anemia Coagulopathy, mild, secondary to underlying liver cirrhosis History of subcapsular hematoma of the right subhepatic space noted on abdominal CT from 12/2024, from TIPS postprocedure PLAN: Supplemental oxygen as needed PT currently on room air Continue Ceftriaxone and Flagyl IV Continue Lasix Continue spironolactone Dispo per primary team INTERVAL HISTORY: [Per hospitalist's notes: "54-year-old malen history of alcoholic liver cirrhosis, history of portal hypertensive gastropathy, recurrent ascites, recent history of tips procedure by Dr. Yoder in [facility] on 12/2024, chronic anemia, history of hyponatremia, presented to the ER for further evaluation of significant abdominal distention with associated nausea and vomiting. Patient reports that he has been having significant abdominal distention since discharge from the hospital on 12/31/2024., patient was previously hospitalized in [facility] on 12/15/2024 and had an extended hospital stay if where he underwent tips placement for recurrent large volume ascites. Patient states that he has been trying to be compliant with his home medications. He remains on lactulose, midodrine at home. Unsure if patient has had compliance with oral diuretics as outpatient. Patient did not bring any of his home medications today to the ER. Also reports having significant abdominal pain due to progressive distention of the abdomen, currently rates the pain as 8/10 in severity. Oral intake has been poor due to abdominal distention.Patient reports that he gets short of breath with minimal activity. Denies any cough. Denies any pleurisy. Denies any recent history of hematochezia or melena." BIS team was consulted for lo culated pleural effusion per CT report. [facility] [employer] services provided by Andrea [place]: Patient claims that he just recently had a paracentesis last Friday equivalent to 4.5 L fluid drained. Despite this, he still continues to experience shortness of breath that is worse on exertion. Yesterday, he came up here in the ER but was eventually sent home because he was told that nobody was available to tap him. He continues to have abdominal distention and pain with pain scale of 10/10. He claimed that he was doing well after his tips placement. Otherwise, he denies other constitutional symptoms. On my assessment, patient is currently on room air saturating 95-96%. He endorses a pain scale of 3/10. Abdomen is mildly soft but without board-like rigidity, BNP he has 3+ pitting edema. Patient is not encephalopathic. Goals of care was discussed with the patient verbalizing understanding and agreement. We will continue to follow along patient's response to treatment. On behalf of [facility] team, thank you for allowing us to participate in Mr. German's care. 01/14 - patient is seen and evaluated at the bedside. Patient is sitting up in bed with no signs of acute distress. Patient remains on room air and denies chest discomfort, chest pain or dyspnea. Patient does admit minimal dyspnea with exertion however while at rest he is perfectly fine. No acute changes reported overnight. Patient does continue with abdominal distention. Recommend IR for right thoracentesis. Send pleural fluid for analysis. Patient is scheduled for a paracentesis today. Recommend continue Rocephin for SBP. Patient had abdominal ultrasound shows cirrhotic liver morphology with ascites. Patient's tips with peak systolic velocities proximal mid and distal are 95, 167 and 131 CMS/S. We will continue to follow up with you. Patient reports a recent paracentesis last Friday with 4.5 L removed. Patient may require restar ting Lasix and spironolactone if ascites persists 01/15-Examined and assess patient is resting in bed in a high Boyce's position awake, alert, and oriented with no family members nor friends present, as well as in no acute distress. Accompanied by patient's bedside nurse. Reviewed and discussed with patient laboratory results, vital signs, and diagnostic procedures. 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 Location of liver side is a factor to where there is more fluid migrating to the right lower lobe area of the patient. After discussing this with the patient there are questions or concerns. Hemodynamically stable. Afebrile. A.m. labs ordered. Patient denies shortness or breath, fever, ch ills, nauseousness and constipation currently.. 01/16 - patient is seen and examined at the bedside. Patient is seen sitting up in bed appears to be weak and deconditioned. Patient reports he did not sleep well last night. Patient remains on room air with no signs of acute distress. Patient denies chest discomfort or chest pain at the time of my evaluation. No acute changes reported overnight. Recommend continue diuresing with Lasix and spironolactone. Vital signs are stable. Labs are within normal limits. Patient's sodium level continues to improve daily. Today's labs show 129 from 125 previously. Patient had a recent thoracentesis however fluid removal amount is unclear. Will repeat CXR in AM to re-evaluate the effusion. 01/17 - patient is seen lying in bed resting quietly does not appear to be in any acute distress at this time. Patient does continue to be weak and deconditioned. Patient remains on room air and denies chest discomfort, chest pain or dyspnea at the time of my evaluation. No acute changes reported overnight. Patient continues diuresing with Lasix as well as spironolactone. Today's chest x-ray is currently pending. Vital Signs are stable. Labs are within normal limits. Patient discontinue with hyponatremia, recommend salt tabs. Continue to follow with you. 01/18- examined and assess the patient while resting outside the bed friendly and conversant on room air awake, alert, appearing in no acute distress. Accompanied by patient's bedside nurse. Nursing staff report adverse events occurring overnight. Shortness of the breath, chest pain, constipation, fever, chills, and diarrhea currently denied by the patient reviewed and discussed with patient laboratory results, vital signs, importance of following up with primary care provider and reproduction machine loader and GI specialists for the effective management of the patient's liver cirrhosis. Had no questions and concerns after discussion. Dispo her primary team. REVIEW OF SYSTEMS: 12 point ROS reviewed with patient. Pertinent positives mentioned above. Otherwise negative. PHYSICAL EXAM: GENERAL: alert, weak, awake oriented x 3 HEENT: EOMI, Sclera non icteric, moist mucosa NECK: Supple, no JVD, trachea midline LUNGS: Clear breath sounds bilaterally. No wheezes HEART: Regular rate and rhythm. Normal S1 and S2, without murmurs Tachycardia ABD: Abdomen semi-firm, nontender. Bowel sounds present EXT: No clubbing cyanosis, 3+ pittind edema on BLE NEURO: Alert and oriented to person, follows commands Vital Signs (last 8hr) Date Time Temp Pulse Resp B/P (MAP) Pulse Ox O2 Delivery O2 Flow Rate FiO2 01/18/25 07:24 98.2 101 16 103/61 100 Room Air 01/18/25 06:15 91 20 N/A Room Air 21 01/18/25 04:00 98.1 88 18 109/66 97 Room Air LABS: Hematology Labs: Test 01/18/25 04:30 Range/Units White Blood Count 9.8 4.8-10.8 K/uL Red Blood Count 2.65 L 4.50-6.20 MIL/uL Hemoglobin 8.9 L 14.0-18.0 g/dL Hematocrit 26.1 L 42-54 % Mean Corpuscular Volume 98.5 79-99 fL Mean Corpuscular Hemoglobin 33.6 H 27.0-33.0 pg Mean Corpuscular Hemoglobin Concent 34.1 32.0-36.0 g/dL Red Cell Distribution Width 21.6 H 11.0-15.5 % Platelet Count 101 L 130-400 K/uL Mean Platelet Volume 8.6 7.5-10.5 fL Immature Granulocyte % (Auto) 0.8 0-1 % Neutrophils (%) (Auto) 68.1 40.0-77.0 % Lymphocytes (%) (Auto) 20.2 L 21.0-51.0 % Monocytes (%) (Auto) 8.2 3.0-13.0 % Eosinophils (%) (Auto) 2.6 0.0-8.0 % Basophils (%) (Auto) 0.1 0.0-5.0 % Neutrophils # (Auto) 6.7 1.8-7.7 K/uL Lymphocytes # (Auto) 2.0 1.0-4.8 K/uL Monocytes # (Auto) 0.8 0.1-1.0 K/uL Eosinophils # (Auto) 0.25 0.00-0.70 K/uL Basophils # (Auto) 0.01 0.00-0.20 K/uL Absolute Immature Granulocyte (auto 0.08 0-1 K/uL Nucleated Red Blood Cells 0.0 0.0-0.19 % Chemistry Labs: Test 01/18/25 04:30 01/17/25 12:26 Range/Units Sodium Level 127 L 136-145 mmol/L Potassium Level 4.3 3.5-5.1 mmol/L Chloride Level 98 L 101-111 mmol/L Carbon Dioxide Level 24 21-32 mmol/L Blood Urea Nitrogen 11 7-18 mg/dL Creatinine 0.8 0.5-1.3 mg/dL Glomerular Filtration Rate Calc 106 >90 mL/min Random Glucose 106 H 70-105 mg/dL Total Calcium 7.3 L 8.5-10.1 mg/dL Magnesium Level 2.00 1.80-2.40 mg/dL Total Bilirubin 1.4 H 0.2-1.0 mg/dL Aspartate Amino Transf (AST/SGOT) 37 10-37 U/L Alanine Aminotransferase (ALT/SGPT) 12 12-78 U/L Alkaline Phosphatase 337 H 50-136 U/L Total Protein 5.2 L 6.0-8.3 g/dL Albumin 1.7 L 3.5-5.0 g/dL Lactic Acid Level 1.7 0.8-2.5 mmol/L C-Reactive Protein, Quantitative 22.80 H 0.5-3.0 mg/L Procalcitonin 0.05 0.05-0.5 ng/mL DIAGNOSTICS / RADIOLOGY RESULTS: [ ] PLAN NEURO: Minimize central acting medications as possible. Maintain fall precautions, adequate lighting during the day PULMONARY: Supplemental 02 as needed. Maintain aspiration precautions at all times CARDIOVASCULAR: Follow hemodynamics. Vital signs per facility protocol GI & NUTRITION: Continue with nutritional support. Continue stool softeners and laxatives as needed. KIDNEYS & ELECTROLYTES: Strict monitoring of intake, output and overall fluid balance. Avoid nephrotoxic medications to the extent possible. Medications to be dosed according to renal function. Monitor electrolytes and replace as needed ENDOCRINE: Maintain blood glucose between 100-180 at all times. Hypoglycemia protocol in place INFECTIOUS DISEASE: Trend temperature, WBC and procalcitonin level Follow cultures, deescalate antibiotics as soon as possible. Panculture if new onset fever ONCOLOGY/HEMATOLOGY/COAGULATION: Monitor for s/s of bleeding Monitor hemoglobin, coagulation studies as needed SKIN: Pressure ulcer prevention per facility protocol Specialty mattress ORTHO/REHAB: Continue PT/OT Prophylaxis: Continue GI and DVT prophylaxis Code Status: Full Resuscitation Disposition: As per attending. FIORELLA CLOUD AGACNP Jan 18, 2025 10:08
[2025-01-18] MEDS ORDERED: MIDO5TAB4 PO (10:47)
[2025-01-18 12:05] VITALS: BP 136/86; PULSE 111; RESP 16; TEMP 98
--- NOTE | 2025-01-18 12:56 | DS ---
Discharge Summary Hospital Course Summary: 54-year-old male with history of alcoholic liver cirrhosis, history of portal hypertensive gastropathy, recurrent ascites, recent history of tips procedure by Dr. Molina in [facility] [place] 12[place]24, chronic anemia, history of hyponatremia, presented to the ER for further evaluation of significant abdominal distention with associated nausea and vomiting. Patient reports that he has been having significant abdominal distention since discharge from the hospital on 12/31/2024., patient was previously hospitalized in [facility] on 12/15/2024 and had an extended hospital stay if where he underwent tips placement for recurrent large volume ascites. Patient states that he has been trying to be compliant with his home medications. He remains on lactulose, midodrine at home. Unsure if patient has had compliance with oral diuretics as outpatient. Patient did not bring any of his home medications today to the ER. Also reports having significant abdominal pain due to progressive distention of the abdomen, currently rates the pain as 8/10 in severity. Oral intake has been poor due to abdominal distention. Patient was admitted for further medical management. During hospitalization, the patient was treated with Lasix and spironolactone, antibiotics and strict fluid restriction. Paracentesis was performed on 01/14, 4.7 L of fluid has been removed. Patient received albumin doses, fluid studies showed no signs of spontaneous bacterial peritonitis. His condition gradually improved, though he continued to experience weakness and fatigue. Physical Therapy was started to help with deconditioning. The medical team explained that it may take several months for his ascites to fully resolve following the tips procedure. By the time of discharge, his vital signs were stable and his overall condition had improved. He was discharged home with close follow-up and instructions to continue medications and maintain fluid restrictions. Patient was advised to be abstinent from alcohol. Patient was advised to seek urgent care/ER if worsening abdominal pain, worsening confusion, bloody vomiting, fever >100.4 F. Patient was advised to continue all home medications at advised, follow up with his PCP in 1-2 weeks. 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 [place] [id number] NEPHROLOGY CONSULTATION NOTE Date/Time Patient Seen: Jan 13, 2025 Reason for Consultation: Hyponatremia HISTORY OF PRESENT ILLNESS: This is a 54-year-old malen history of alcoholic liver cirrhosis, history of portal hypertensive gastropathy, recurrent ascites, recent history of tips procedure by Dr. Molina in [facility] on 12/2024, chronic anemia, history of hyponatremia, He presented to the ER for further evaluation of significant abdominal distention with associated nausea and vomiting. He was noted with hyponatremia We are consulted for hyponatremia Renal function is stable Electrolytes were noted He was seen in the emergency room, in no acute distress No family at the bedside Prognosis remains guarded REVIEW OF SYSTEMS: GENERAL: Negative for any nausea, vomiting, fevers, chills, or weight loss. NEUROLOGIC: Negative for any blurry vision, blind spots, double vision, facial asymmetry, dysphagia, dysarthria, hemiparesis, hemisensory deficits, vertigo, ataxia. HEENT: Negative for any head trauma, neck trauma, neck stiffness, photophobia, phonophobia, sinusitis, rhinitis. CARDIAC: Negative for any chest pain, dyspnea on exertion, paroxysmal nocturnal dyspnea, peripheral edema. PULMONARY: Negative for any shortness of breath, wheezing, COPD, or TB exposure. GASTROINTESTINAL: Negative for any abdominal pain, nausea, vomiting, bright red blood per rectum, melena. GENITOURINARY: Negative for any dysuria, hematuria, incontinence. INTEGUMENTARY: Negative for any rashes, cuts, insect bites. RHEUMATOLOGIC: Negative for any joint pains, photosensitive rashes, history of vasculitis or kidney problems. HEMATOLOGIC: Negative for any abnormal bruising, frequent infections or bleeding. PAST MEDICAL HISTORY: Acoholic liver cirrhosis, history of portal gastropathy, history of hyponatremia, history of recurrent ascites PAST SURGICAL HISTORY: Paracentesis, tips placement PAST SOCIAL HISTORY: History of alcoholism, last drink was three months ago FAMILY HISTORY: Noncontributory PHYSICAL EXAM: GENERAL: Alert and oriented x 3. No acute distress. Well-nourished. EYES: EOMI. Anicteric. HENT: Moist mucous membranes. No scleral icterus. No cervical lymphadenopathy. LUNGS: Clear to auscultation bilaterally. No accessory muscle use. CARDIOVASCULAR: Regular rate and rhythm. No murmur. No JVD. ABDOMEN: Soft, non-tender and non-distended. No palpable masses. EXTREMITIES: No edema. Non-tender. SKIN: No rashes or lesions. Warm. NEUROLOGIC: No focal neurological deficits. CN II-XII grossly intact, but not individually tested. PSYCHIATRIC: Cooperative. Appropriate mood and affect. MEDICATIONS: [ ] Current Medications Medications (Trade) Dose Ordered Sig/Ronak Route PRN Reason Start Time Stop Time Status Last Admin Dose Admin Acetaminophen (TYLenol 325MG TAB) 650 mg Q6H PRN PO MILD PAIN (1-3) 01/13/25 13:30 02/12/25 13:29 Albumin Human 50 ml @ 0 mls/hr Q6H IV 01/13/25 13:30 01/15/25 13:30 01/13/25 13:35 300 MLS/HR Ceftriaxone Sodium (Rocephin 2gm Inj) 2 gm DAILY IVPB 01/14/25 09:00 01/24/25 08:59 Ceftriaxone Sodium (Rocephin 2gm Inj) 2 gm ONCE STAT IVPB 01/13/25 09:47 01/13/25 09:49 DC 01/13/25 12:01 2 GM Ipratropium [place] (AtrovENT UD) 0.5 mg Q6H PRN IH SHORTNESS OF BREATH 01/13/25 13:30 02/12/25 13:29 Lactulose (Constulose 20gm/ 30ml Udcup) 20 gm BID PO 01/13/25 21:00 02/12/25 20:59 Midodrine (PROAMatine 5 MG TABLET) 5 mg TID PO 01/13/25 14:00 02/12/25 13:59 01/13/25 13:35 5 MG Ondansetron HCl (zoFRAN 4MG INJ) 4 mg ONCE STAT IVP 01/13/25 09:47 01/13/25 09:49 DC 01/13/25 12:01 4 MG Ondansetron HCl (zoFRAN 4MG INJ) 4 mg Q6H PRN IVP NAUSEA/VOMITING 01/13/25 13:30 02/12/25 13:29 Pantoprazole Sodium (PROTonix 40MG INJ) 40 mg Q24H IVP 01/13/25 13:30 02/12/25 13:29 01/13/25 13:35 40 MG Thiamine HCl (Vitamin B-1) 100 mg DAILY IVP 01/14/25 09:00 02/13/25 08:59 Vitamin B Complex/ Vit C/Folic Acid (Nephrovite Tablet) 1 cap DAILY PO 01/14/25 09:00 02/13/25 08:59 Vital Signs (last 8hr) Date Time Temp Pulse Resp B/P (MAP) Pulse Ox O2 Delivery O2 Flow Rate FiO2 01/13/25 13:00 115 16 113/58 97 Room Air* 0 21 01/13/25 11:48 117 16 132/84 100 Room Air* 0 21 01/13/25 09:13 97.7 124 18 137/94 97 Room Air DIAGNOSTICS / RADIOLOGY: [place] [address] [address] IMAGING REPORT Signed PATIENT: CHAN GERMAN MR#: [id number] : 1970 SEX: M AGE: 54 LOCATION: [facility] ORDER 7 STATUS: [facility] REPORT#: [id number] SERVICE 6 REASON: vomiting and ascites ORDERING PHYSICIAN: RACHEL MAZARIEGOS MD PROCEDURE: ABD PELVWO - CT ABD/PEL WO CON RENAL/APPY EXAM: CT Abdomen and Pelvis Without IV Contrast CLINICAL HISTORY: Vomiting and ascites. TECHNIQUE: Axial computed tomography images of the abdomen and pelvis acquired without intravenous contrast. Dose optimization techniques applied. Total DLP: 408 mGy???cm. CONTRAST: No IV contrast administered. COMPARISON: Ultrasound Abdomen (US/SD) dated 12/29/2024, which demonstrated a large heterogeneous right hepatic lobe lesion (10.8 ??? 2.9 ??? 9.4 cm) superior to the TIPS tract, absent shunt flow suggesting possible TIPS occlusion or thrombosis, reduced portal vein flow, new ascites, and right pleural effusion with basal lung collapse. FINDINGS: LUNG BASES: Gross loculated right pleural collection measuring up to 7.0 cm in maximum thickness, causing compression atelectasis of the adjacent right lower lobe. No left-sided effusion or consolidation. LIVER: Cirrhotic morphology with coarse, nodular surface contour. An ill-defined, faintly heterogeneous hypodense lesion is noted in the right lobe of the liver along the lateral margin of the TIPS shunt, measuring approximately 5.0 ??? 4.8 cm. This lesion may represent a residual or evolving hematoma or post-procedural collection; however, further characterization requires contrast-enhanced imaging. No other discrete enhancing lesion is seen within the limitations of the non-contrast study. TIPS SHUNT: TIPS shunt visualized between the right portal and hepatic veins. Assessment of shunt patency is limited on non-contrast imaging. No displacement or gross thrombosis evident. GALLBLADDER AND BILE DUCTS: Gallbladder normal in size and wall thickness. No cholelithiasis or biliary dilatation. PANCREAS: Normal in size and attenuation. SPLEEN: Normal in size and homogeneous attenuation. ADRENAL GLANDS: Unremarkable. KIDNEYS, URETERS, AND BLADDER: Normal cortical thickness and attenuation. No hydronephrosis or calculi. Urinary bladder normal. STOMACH AND BOWEL: Non-dilated bowel loops with preserved mural thickness. No obstruction or perforation. APPENDIX: Normal in caliber. No periappendiceal inflammation. PERITONEUM: Gross ascites throughout the abdomen and pelvis. No free air. LYMPH NODES: No abnormally enlarged mesenteric or retroperitoneal lymph nodes. REPRODUCTIVE ORGANS: Within normal limits as visualized. VASCULATURE: Major abdominal vessels are patent. No aneurysm or thrombosis. BONES AND SOFT TISSUES: No acute osseous or soft tissue abnormality.IMPRESSION: 1. Ill-defined, hypodense right hepatic lobe lesion (5.0 x 4.8 cm) along the lateral margin of the TIPS shunt, reduced in size from prior ultrasound. Indeterminate on non-contrast study; contrast-enhanced CT or MRI recommended for further characterization. 2. Large loculated right pleural effusion (7.0 cm maximum thickness) with compression atelectasis of the adjacent right lower lobe. 3. Cirrhotic liver morphology with gross ascites throughout the abdomen and pelvis. 4. TIPS shunt in situ between right portal and hepatic veins; patency indeterminate without contrast. 5. No other acute intra-abdominal or pelvic abnormalities detected within the limitations of non-contrast imaging. 6. Compared with the prior abdominal ultrasound dated 12/29/2024, the previously described heterogeneous right hepatic lesion (10.8 ??? 2.9 ??? 9.4 cm) has reduced in size to approximately 5.0 ??? 4.8 cm, now appearing ill-defined and hypodense. Persistent ascites and new organization of the right pleural fluid into a loculated collection (7 cm) with lower lobe atelectasis are noted. The TIPS shunt remains in position; however, shunt patency cannot be reassessed without contrast or Doppler evaluation. No new hepatic or extrahepatic lesion identified. /[facility] DICTATED BY: TYRONE NOLEN MD DATE: 01/13/251303 ELECTRONICALLY SIGNED BY: TYRONE NOLEN MD DATE: 01/13/251303 PATIENT: CHAN GERMAN MR#: [id number] : 1970 SEX: M AGE: 54 LOCATION: [facility] ORDER 9 STATUS: REG REPORT#: [id number] SERVICE 8 REASON: sob ORDERING PHYSICIAN: RACHEL MAZARIEGOS MD PROCEDURE: CXR1VW - CHEST 1VW EXAM: CR Chest, 1 View. CLINICAL HISTORY: sob COMPARISON: Radiograph dated December 18, 2024 Findings: AP view of the chest is submitted. Large right pleural effusion with suggestion of a loculated component. Subjacent airspace disease may reflect atelectasis and/or an infectious/inflammatory process. The left lung is clear. No pneumothorax. Heart size and pulmonary vessels are within normal limits. IMPRESSION: 1. Large right pleural effusion with possible loculation. 2. Right lower lobe airspace disease, potentially atelectasis or pneumonia. /[facility] DICTATED BY: MARIANN HOWARD Jr., MD DATE: 01/13/251302 ELECTRONICALLY SIGNED BY: MARIANN HOWARD Jr., MD DATE: 01/13/251302 LABORATORY: [ ] Hematology Labs: Test 01/13/25 09:27 Range/Units White Blood Count 11.2 H 4.8-10.8 K/uL Red Blood Count 3.03 L 4.50-6.20 MIL/uL Hemoglobin 10.1 L 14.0-18.0 g/dL Hematocrit 29.8 L 42-54 % Mean Corpuscular Volume 98.3 79-99 fL Mean Corpuscular Hemoglobin 33.3 H 27.0-33.0 pg Mean Corpuscular Hemoglobin Concent 33.9 32.0-36.0 g/dL Red Cell Distribution Width 22.5 H 11.0-15.5 % Platelet Count 157 130-400 K/uL Mean Platelet Volume 8.0 7.5-10.5 fL Immature Granulocyte % (Auto) 0.4 0-1 % Neutrophils (%) (Auto) 76.4 40.0-77.0 % Lymphocytes (%) (Auto) 14.8 L 21.0-51.0 % Monocytes (%) (Auto) 7.6 3.0-13.0 % Eosinophils (%) (Auto) 0.7 0.0-8.0 % Basophils (%) (Auto) 0.1 0.0-5.0 % Neutrophils # (Auto) 8.5 H 1.8-7.7 K/uL Lymphocytes # (Auto) 1.7 1.0-4.8 K/uL Monocytes # (Auto) 0.9 0.1-1.0 K/uL Eosinophils # (Auto) 0.08 0.00-0.70 K/uL Basophils # (Auto) 0.01 0.00-0.20 K/uL Absolute Immature Granulocyte (auto 0.05 0-1 K/uL Nucleated Red Blood Cells 0.0 0.0-0.19 % Erythrocyte Sedimentation Rate 30 H 0-20 MM/HR Chemistry Labs: Test 01/13/25 09:56 01/13/25 09:27 Range/Units Lactic Acid Level 1.9 0.8-2.5 mmol/L Ammonia < 10 L 11-32 umol/L Lactate Dehydrogenase 346 H 81-234 U/L Troponin I High Sensitivity 5 4-75 ng/L C-Reactive Protein, Quantitative 41.80 H 0.5-3.0 mg/L Lipase 41 16-77 U/L Procalcitonin 0.18 0.05-0.5 ng/mL Thyroid Stimulating Hormone (TSH) 2.36 # 0.36-3.74 uIU/mL Sodium Level 125 L 136-145 mmol/L Potassium Level 4.2 3.5-5.1 mmol/L Chloride Level 95 L 101-111 mmol/L Carbon Dioxide Level 28 21-32 mmol/L Blood Urea Nitrogen 16 7-18 mg/dL Creatinine 0.8 0.5-1.3 mg/dL Glomerular Filtration Rate Calc 106 >90 mL/min Random Glucose 92 70-105 mg/dL Total Calcium 7.2 L 8.5-10.1 mg/dL Total Bilirubin 3.1 H 0.2-1.0 mg/dL Direct Bilirubin 1.5 H 0.0-0.3 mg/dL Aspartate Amino Transf (AST/SGOT) 56 H 10-37 U/L Alanine Aminotransferase (ALT/SGPT) 18 12-78 U/L Alkaline Phosphatase 335 H 50-136 U/L Total Protein 6.0 6.0-8.3 g/dL Albumin 1.6 L 3.5-5.0 g/dL Coagulation Labs: Test 01/13/25 09:27 Range/Units Prothrombin Time 14.4 H 9.6-11.6 SEC Prothromb Time International Ratio 1.41 H 0.85-1.15 Activated Partial Thromboplast Time 33.9 26.3-35.5 SEC ASSESSMENT: Hyponatremia Ascites patient has cirrhosis of liver with alcohol abuse before Large right-sided pleural effusion Sinus tachycardia, POA History of portal hypertensive gastropathy, POA History of gastritis, POA Prior history of alcohol use, quit alcohol three months ago, POA Anemia, POA PLAN: Labs, diagnostic, radiologic exams reviewed and interpreted by myself and supervising physician. We have reviewed external records in detail Obtain UA, urine electrolytes, urine creatinine, urine osmolality Require close monitoring of renal function and electrolytes Order CBC, CMP, uric acid, TSH, cortisol level, serum osmolality and electrolytes in am BiPAP as necessary, for respiratory distress Monitor blood pressure adjust medication doses as needed Avoid hypotensive episodes May use Dilaudid 0.5 mg IV every 6 hours as needed for severe pain Monitor blood sugars Strict intake, output, and daily weight should be monitored Please renally adjust medications Avoid nephrotoxic and nonsteroidal drugs Avoid contrast if possible Will continue to monitor renal function, anemia, electrolytes Treatment plan discussed with patient Questions were answered We have discussed with the other team physicians in detail about the care plan We will continue to monitor the patient closely Thank you for allowing us to participate in the care of this patient ATTESTATION BY PHYSICIAN I have seen and examined the patient. I reviewed the documentation, medical decision making, and treatment plan as noted by the mid-level provider above. I agree with the findings and plan of care. HARJINDER CORTÉS MD, ELIZABETH FNP Jan 13, 2025 14:58 HARJINDER CORTÉS MD Jan 13, 2025 19:57 Electronically Signed by: EKATERINA LEAHY FNWin03/15/24 1458 Electronically Co-Signed by: HARJINDER CORTÉS MD01/13/252000 CONSULTATION REPORT Name: CHAN GERMAN Acct: [id number] MR: [id number] : 1970 Admit Date: 01/13/25 [facility]EL[facility]ERS [facility] [address] [address] [facility] CONSULTATION NOTE Date Patient Seen: Jan 13, 2025 Time of Visit: 19:50 Supervising Physician: [Dr. Taran Morgan ] Reason for Consultation: [Loculated pleural effusion ] Primary Care Physician: [Dr. Miko Moya] Outpatient Specialists: [ ] Inpatient Consults: [[facility] team-pulmo, Dr. Gallo-nephro PROBLEM LIST: Loculated right pleural effusion, large-POA Ascites with recurrent paracentesis-POA Alcoholic liver cirrhosis-POA: Child-santizo score=11 points: Child class C with life expectancy 1-3 years; MELD-Na score- 24 points=14-15% est 90-day mortality Acute on chronic hyponatremia-POA Hepatic transaminitis-POA Hyperbilirubinemia-POA Mild leukocytosis-POA Right lobe liver lesion-POA Hypoalbuminemia-POA Primary HTN HLD S/p TIPS placement 12/2024 History of portal hypertensive gastropathy History of gastritis Prior history of alcohol and nicotine use, quit alcohol three months ago Anemia Coagulopathy, mild, secondary to underlying liver cirrhosis History of subcapsular hematoma of the right subhepatic space noted on abdominal CT from 12/2024, from TIPS postprocedure PLAN: -Patient is already on IV Rocephin for SBP prophylaxis, we will add IV Flagyl q8H for loculated pleural effusion coverage -Titrate oxygen to keep sats >92%, currently on room air -PRN neb treatment -I.S. q1H x10 while awake -[facility] pulmo team to evaluate for possible thoracentesis -Manage cough and fever PRN -Obtain tumor markers -The rest of medical management per primary team HPI: [Per hospitalist's notes: "54-year-old malen history of alcoholic liver cirrhosis, history of portal hypertensive gastropathy, recurrent ascites, recent history of tips procedure by Dr. Molina in [facility] on 12/[place]24, chronic anemia, history of hyponatremia, presented to the ER for further evaluation of significant abdominal distention with associated nausea and vomiting. Patient reports that he has been having significant abdominal distention since discharge from the hospital on 12/31/2024., patient was previously hospitalized in [facility] on 12/15/2024 and had an extended hospital stay if where he underwent tips placement for recurrent large volume ascites. Patient states that he has been trying to be compliant with his home medications. He remains on lactulose, midodrine at home. Unsure if patient has had compliance with oral diuretics as outpatient. Patient did not bring any of his home medications today to the ER. Also reports having significant abdominal pain due to progressive distention of the abdomen, currently rates the pain as 8/10 in severity. Oral intake has been poor due to abdominal distention.Patient reports that he gets short of breath with minimal activity. Denies any cough. Denies any pleurisy. Denies any recent history of hematochezia or melena." BIS team was consulted for loculated pleural effusion per CT report. Sales Service Assistant services provided by [facility] [place]: Patient claims that he just recently had a paracentesis last Friday equivalent to 4.5 L fluid drained. Despite this, he still continues to experience shortness of breath that is worse on exertion. Yesterday, he came up here in [facility] ER but was eventually sent home because he was told that nobody was available to tap him. He continues to have abdominal distention and pain with pain scale of 10/10. He claimed that he was doing well after his tips placement. Otherwise, he denies other constitutional symptoms. On my assessment, patient is currently on room air saturating 95-96%. He endorses a pain scale of 3/10. Abdomen is mildly soft but without board-like rigidity, BNP he has 3+ pitting edema. Patient is not encephalopathic. Goals of care was discussed with the patient verbalizing understanding and agreement. We will continue to follow along patient's response to treatment. On behalf of BIS team, thank you for allowing us to participate in Mr. German's care. PAST MEDICAL HX: see above PAST SURGICAL HX: noncontributory SOCIAL HISTORY: No tobacco, ETOH, or illicit drug use Coded Allergies: NSAIDS (Non-Steroidal Anti-Inflamma (Unverified Allergy, Intermediate, 06/09/24) aspirin (Unverified Allergy, Intermediate, 06/09/24) ibuprofen (Unverified Allergy, Intermediate, 06/09/24) REVIEW OF SYSTEMS: 12 point ROS reviewed with patient. Pertinent positives mentioned above. Otherwise negative. PHYSICAL EXAM: GENERAL: alert, weak, awake oriented x 3 HEENT: EOMI, Sclera non icteric, moist mucosa NECK: Supple, no JVD, trachea midline LUNGS: Clear breath sounds bilaterally. No wheezes HEART: Regular rate and rhythm. Normal S1 and S2, without murmurs Tachycardia ABD: Abdomen semi-firm, nontender. Bowel sounds present EXT: No clubbing cyanosis, 3+ pittind edema on BLE NEURO: Alert and oriented to person, follows commands Vital Signs (last 8hr) Date Time Temp Pulse Resp B/P (MAP) Pulse Ox O2 Delivery O2 Flow Rate FiO2 01/13/25 16:46 101 16 117/71 98 Room Air* 0 21 01/13/25 14:58 102 16 122/79 98 Room Air* 0 21 01/13/25 13:00 115 16 113/58 97 Room Air* 0 21 LABS: Hematology Labs: Test 01/13/25 09:27 Range/Units White Blood Count 11.2 H 4.8-10.8 K/uL Red Blood Count 3.03 L 4.50-6.20 MIL/uL Hemoglobin 10.1 L 14.0-18.0 g/dL Hematocrit 29.8 L 42-54 % Mean Corpuscular Volume 98.3 79-99 fL Mean Corpuscular Hemoglobin 33.3 H 27.0-33.0 pg Mean Corpuscular Hemoglobin Concent 33.9 32.0-36.0 g/dL Red Cell Distribution Width 22.5 H 11.0-15.5 % Platelet Count 157 130-400 K/uL Mean Platelet Volume 8.0 7.5-10.5 fL Immature Granulocyte % (Auto) 0.4 0-1 % Neutrophils (%) (Auto) 76.4 40.0-77.0 % Lymphocytes (%) (Auto) 14.8 L 21.0-51.0 % Monocytes (%) (Auto) 7.6 3.0-13.0 % Eosinophils (%) (Auto) 0.7 0.0-8.0 % Basophils (%) (Auto) 0.1 0.0-5.0 % Neutrophils # (Auto) 8.5 H 1.8-7.7 K/uL Lymphocytes # (Auto) 1.7 1.0-4.8 K/uL Monocytes # (Auto) 0.9 0.1-1.0 K/uL Eosinophils # (Auto) 0.08 0.00-0.70 K/uL Basophils # (Auto) 0.01 0.00-0.20 K/uL Absolute Immature Granulocyte (auto 0.05 0-1 K/uL Nucleated Red Blood Cells 0.0 0.0-0.19 % Erythrocyte Sedimentation Rate 30 H 0-20 MM/HR Chemistry Labs: Test 01/13/25 18:49 01/13/25 09:56 01/13/25 09:27 Range/Units Sodium Level 128 L 136-145 mmol/L Potassium Level 4.7 3.5-5.1 mmol/L Chloride Level 96 L 101-111 mmol/L Carbon Dioxide Level 29 21-32 mmol/L Blood Urea Nitrogen 18 7-18 mg/dL Creatinine 0.7 0.5-1.3 mg/dL Glomerular Filtration Rate Calc 111 >90 mL/min Random Glucose 122 H 70-105 mg/dL Total Calcium 7.2 L 8.5-10.1 mg/dL Lactic Acid Level 1.9 0.8-2.5 mmol/L Ammonia < 10 L 11-32 umol/L Lactate Dehydrogenase 346 H 81-234 U/L Troponin I High Sensitivity 5 4-75 ng/L C-Reactive Protein, Quantitative 41.80 H 0.5-3.0 mg/L Lipase 41 16-77 U/L Procalcitonin 0.18 0.05-0.5 ng/mL Thyroid Stimulating Hormone (TSH) 2.36 # 0.36-3.74 uIU/mL Total Bilirubin 3.1 H 0.2-1.0 mg/dL Direct Bilirubin 1.5 H 0.0-0.3 mg/dL Aspartate Amino Transf (AST/SGOT) 56 H 10-37 U/L Alanine Aminotransferase (ALT/SGPT) 18 12-78 U/L Alkaline Phosphatase 335 H 50-136 U/L Total Protein 6.0 6.0-8.3 g/dL Albumin 1.6 L 3.5-5.0 g/dL Coagulation Labs: Test 01/13/25 09:27 Range/Units Prothrombin Time 14.4 H 9.6-11.6 SEC Prothromb Time International Ratio 1.41 H 0.85-1.15 Activated Partial Thromboplast Time 33.9 26.3-35.5 SEC DIAGNOSTICS / RADIOLOGY RESULTS: [ ] PLAN NEURO: Minimize central acting medications as possible. Maintain fall precautions, adequate lighting during the day PULMONARY: Supplemental 02 as needed. Maintain aspiration precautions at all times CARDIOVASCULAR: Follow hemodynamics. Vital signs per facility protocol GI & NUTRITION: Continue with nutritional support. Continue stool softeners and laxatives as needed. KIDNEYS & ELECTROLYTES: Strict monitoring of intake, output and overall fluid balance. Avoid nephrotoxic medications to the extent possible. Medications to be dosed according to renal function. Monitor electrolytes and replace as needed ENDOCRINE: Maintain blood glucose between 100-180 at all times. Hypoglycemia protocol in place INFECTIOUS DISEASE: Trend temperature, WBC and procalcitonin level Follow cultures, deescalate antibiotics as soon as possible. Panculture if new onset fever ONCOLOGY/HEMATOLOGY/COAGULATION: Monitor for s/s of bleeding Monitor hemoglobin, coagulation studies as needed SKIN: Pressure ulcer prevention per facility protocol Specialty mattress ORTHO/REHAB: Continue PT/OT Prophylaxis: Continue GI and DVT prophylaxis Code Status: Full Resuscitation Disposition: MARCELINO HORNE Jan 13, 2025 19:56 Electronically Signed by: MARCELINO CASTELLON03/16/24 0310 Electronically Co-Signed by: TARAN DOUGLAS MD01/14/25 0720 Procedure(s): [place] [address] [place] [id number] IMAGING REPORT Signed PATIENT: CHAN GERMAN MR#: [id number] : 1970 SEX: M AGE: 54 LOCATION: [facility] ORDER STATUS: REG ER REPORT#: [id number] SERVICE REASON: sob ORDERING PHYSICIAN: RACHEL MAZARIEGOS MD PROCEDURE: CXR1VW - CHEST 1VW EXAM: CR Chest, 1 View. CLINICAL HISTORY: sob COMPARISON: Radiograph dated December 18, 2024 Findings: AP view of the chest is submitted. Large right pleural effusion with suggestion of a loculated component. Subjacent airspace disease may reflect atelectasis and/or an infectious/inflammatory process. The left lung is clear. No pneumothorax. Heart size and pulmonary vessels are within normal limits. IMPRESSION: 1. Large right pleural effusion with possible loculation. 2. Right lower lobe airspace disease, potentially atelectasis or pneumonia. /[place] DICTATED BY: MARIANN HOWARD Jr., MD DATE: 01/13/251302 ELECTRONICALLY SIGNED BY: MARIANN HOWARD Jr., MD DATE: 01/13/251302 [place] [address] IMAGING REPORT Signed PATIENT: CHAN GERMAN MR#: [id number] : 1970 SEX: M AGE: 54 LOCATION: [facility] ORDER 7 STATUS: [facility] ER REPORT#: [id number] SERVICE REASON: vomiting and ascites ORDERING PHYSICIAN: RACHEL MAZARIEGOS MD PROCEDURE: ABD PELVWO - CT ABD/PEL WO CON RENAL/APPY EXAM: CT Abdomen and Pelvis Without IV Contrast CLINICAL HISTORY: Vomiting and ascites. TECHNIQUE: Axial computed tomography images of the abdomen and pelvis acquired without intravenous contrast. Dose optimization techniques applied. Total DLP: 408 mGy???cm. CONTRAST: No IV contrast administered. COMPARISON: Ultrasound Abdomen (US/SD) dated 12/29/2024, which demonstrated a large heterogeneous right hepatic lobe lesion (10.8 ??? 2.9 ??? 9.4 cm) superior to the TIPS tract, absent shunt flow suggesting possible TIPS occlusion or thrombosis, reduced portal vein flow, new ascites, and right pleural effusion with basal lung collapse. FINDINGS: LUNG BASES: Gross loculated right pleural collection measuring up to 7.0 cm in maximum thickness, causing compression atelectasis of the adjacent right lower lobe. No left-sided effusion or consolidation. LIVER: Cirrhotic morphology with coarse, nodular surface contour. An ill-defined, faintly heterogeneous hypodense lesion is noted in the right lobe of the liver along the lateral margin of the TIPS shunt, measuring approximately 5.0 ??? 4.8 cm. This lesion may represent a residual or evolving hematoma or post-procedural collection; however, further characterization requires contrast-enhanced imaging. No other discrete enhancing lesion is seen within the limitations of the non-contrast study. TIPS SHUNT: TIPS shunt visualized between the right portal and hepatic veins. Assessment of shunt patency is limited on non-contrast imaging. No displacement or gross thrombosis evident. GALLBLADDER AND BILE DUCTS: Gallbladder normal in size and wall thickness. No cholelithiasis or biliary dilatation. PANCREAS: Normal in size and attenuation. SPLEEN: Normal in size and homogeneous attenuation. ADRENAL GLANDS: Unremarkable. KIDNEYS, URETERS, AND BLADDER: Normal cortical thickness and attenuation. No hydronephrosis or calculi. Urinary bladder normal. STOMACH AND BOWEL: Non-dilated bowel loops with preserved mural thickness. No obstruction or perforation. APPENDIX: Normal in caliber. No periappendiceal inflammation. PERITONEUM: Gross ascites throughout the abdomen and pelvis. No free air. LYMPH NODES: No abnormally enlarged mesenteric or retroperitoneal lymph nodes. REPRODUCTIVE ORGANS: Within normal limits as visualized. VASCULATURE: Major abdominal vessels are patent. No aneurysm or thrombosis. BONES AND SOFT TISSUES: No acute osseous or soft tissue abnormality.IMPRESSION: 1. Ill-defined, hypodense right hepatic lobe lesion (5.0 x 4.8 cm) along the lateral margin of the TIPS shunt, reduced in size from prior ultrasound. Indeterminate on non-contrast study; contrast-enhanced CT or MRI recommended for further characterization. 2. Large loculated right pleural effusion (7.0 cm maximum thickness) with compression atelectasis of the adjacent right lower lobe. 3. Cirrhotic liver morphology with gross ascites throughout the abdomen and pelvis. 4. TIPS shunt in situ between right portal and hepatic veins; patency indeterminate without contrast. 5. No other acute intra-abdominal or pelvic abnormalities detected within the limitations of non-contrast imaging. 6. Compared with the prior abdominal ultrasound dated 12/29/2024, the previously described heterogeneous right hepatic lesion (10.8 ??? 2.9 ??? 9.4 cm) has reduced in size to approximately 5.0 ??? 4.8 cm, now appearing ill-defined and hypodense. Persistent ascites and new organization of the right pleural fluid into a loculated collection (7 cm) with lower lobe atelectasis are noted. The TIPS shunt remains in position; however, shunt patency cannot be reassessed without contrast or Doppler evaluation. No new hepatic or extrahepatic lesion identified. /[place] DICTATED BY: TYRONE NOLEN MD DATE: 01/13/251303 ELECTRONICALLY SIGNED BY: TRYONE NOLEN MD DATE: 01/13/251303 [place] [address] IMAGING REPORT Signed PATIENT: CHAN GERMAN MR#: [id number] : 1970 SEX: M AGE: 54 LOCATION: [facility] ORDER 07 STATUS: ADM IN REPORT#: [id number] SERVICE 05 REASON: hx of TIPS, assess TIPS patency, recurrent large volume ascites ORDERING PHYSICIAN: ACTRACHITA TENORIO MD PROCEDURE: ABDOMEN - US ABDOMINAL COMPLETE Examination: Ultrasound examination of the abdomen Clinical history: Evaluate the patency of the main portal vein. Comparison: Correlation with prior ultrasound images. Findings: Grayscale and color ultrasound images of the right upper quadrant submitted. Cirrhotic hepatic morphology. Ascites. Peak systolic velocities within the TIPS are as follows: Proximal, mid, and distal are 95, 167, and 131 cm/s respectively. IMPRESSION: 1. Patent TIPS with peak systolic velocities: proximal 95 cm/s, mid 167 cm/s, distal 131 cm/s. 2. Cirrhotic liver morphology with ascites. /[place] DICTATED BY: MARIANN HOWARD Jr., MD DATE: 01/13/25 170 ELECTRONICALLY SIGNED BY: MARIANN HOWARD Jr., MD DATE: 01/13/[address] [id number] IMAGING REPORT Signed PATIENT: CHAN GERMAN MR#: [id number] : 1970 SEX: M AGE: 54 LOCATION: [facility] ORDER 1304 STATUS: ADM IN REPORT#: [id number] SERVICE 0800 REASON: diagnotic and therapeutic paracentesis, cirrhosis,ascitic fluid to be sent ORDERING PHYSICIAN: CATRACHITA TENORIO MD PROCEDURE: PARA ABD - US ABDOMINAL PARACENTESIS IR US ABDOMINAL PARACENTESIS IR REASON: diagnotic and therapeutic paracentesis, cirrhosis,ascitic fluid to be sent TECHNIQUE: Paracentesis was performed with ultrasound guidance. The puncture site was selected in the Right lower quadrant and overlying skin prepped and draped in a sterile fashion. 1% Xylocaine infiltration was performed. Catheter was placed in the fluid using trocar technique. 4.7 L were removed. Fluid sample was submitted for laboratory evaluation. The patient showed no evidence of complication during the procedure. Patient tolerated procedure well. IMPRESSION: 1. Ultrasound-guided paracentesis. DICTATED BY: ALYCE MOLINA MD DATE: 01/14/25 1455 ELECTRONICALLY SIGNED BY: ALYCE MOLINA MD DATE: 01/14/[address] [id number] IMAGING REPORT Signed PATIENT: CHAN GERMAN MR#: [id number] : 1970 SEX: M AGE: 54 LOCATION: [facility] ORDER 1031 STATUS: ADM IN REPORT#: [id number] SERVICE 1028 REASON: Rule out thromboembolism ORDERING PHYSICIAN: MANUEL TRUJILLO MD PROCEDURE: VENOUS RAYNA - US VENOUS DOPPLER BILATERAL EXAM: UPPER EXTREMITY VENOUS ULTRASOUND, BILATERAL (LIMITED) Technique: Real-time grayscale ultrasound with color and spectral Doppler of the bilateral upper extremity venous system, including compression maneuvers where technically feasible. Contrast: No intravenous contrast administered. Clinical Information: Rule out thromboembolism Comparison: None. Findings: Bilateral upper extremity venous system: Bilateral subclavian, axillary, brachial, basilic, cephalic, radial, and ulnar veins are patent without intraluminal thrombus; veins are compressible where accessible with normal color Doppler flow. Impression: No deep venous thrombosis identified in the evaluated bilateral upper extremity veins. No superficial venous thrombosis identified. /[place] DICTATED BY: TYRONE NOLEN MD DATE: 01/15/25912 ELECTRONICALLY SIGNED BY: TYRONE NOLEN MD DATE: 01/15/25912 [place] [address] IMAGING REPORT Signed PATIENT: CHAN GERMAN MR#: [id number] : 1970 SEX: M AGE: 54 LOCATION: [facility] ORDER 1121 STATUS: ADM IN REPORT#: [id number] SERVICE 1100 REASON: POST RT THORACENTESIS ORDERING PHYSICIAN: ALYCE MOLINA MD PROCEDURE: CXR1VW - CHEST 1VW EXAM: CR Chest, 1 View. CLINICAL HISTORY: Post thoracocentesis COMPARISON: CR chest dated 01/13/2025 FINDINGS: Status post thoracocentesis. LUNGS AND PLEURAL SPACES: No pneumothorax. Slight interval improvement in the right moderate pleural effusion with adjacent lung atelectasis. The rest of the lungs are clear. MEDIASTINUM: The cardiomediastinal silhouette is within normal limits. BONES: No aggressive appearing osseous lesion seen. IMPRESSION: 1. Slight interval improvement in right moderate pleural effusion with adjacent lung atelectasis. 2. No acute pulmonary findings. /[place] DICTATED BY: MARIANN HOWARD Jr., MD DATE: 01/15/25822 ELECTRONICALLY SIGNED BY: MARIANN HOWARD Jr., MD DATE: 01/15/25822 [place] [address] [address] IMAGING REPORT Signed PATIENT: CHAN GERMAN MR#: [id number] : 1970 SEX: M AGE: 54 LOCATION: [facility] ORDER 99 STATUS: ADM IN REPORT#: [id number] SERVICE 9 REASON: effusion ORDERING PHYSICIAN: VIVI PARISI EXECUTIVE VICE PRESIDENT PROCEDURE: CXR1VW - CHEST 1VW EXAM: CR Chest, 1 View. CLINICAL HISTORY: effusion COMPARISON: 01/14/2025 FINDINGS: LUNGS: Interval reduction in the right moderate pleural effusion with adjacent lung atelectasis. The rest of the lungs are clear. PLEURAL SPACES: No pneumothorax. MEDIASTINUM: The cardiomediastinal silhouette is within normal limits. BONES: No acute osseous abnormality. IMPRESSION: Interval reduction in right pleural effusion with adjacent lung atelectasis. 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, POA Compressive right lung atelectasis from large right-sided pleural effusion, POA Acute on chronic hyponatremia, hypervolemic, POA Sinus tachycardia, POA History of portal hypertensive gastropathy, POA History of gastritis, POA Prior history of alcohol use, quit alcohol three months ago, POA Anemia, POA Coagulopathy, mild, secondary to underlying liver cirrhosis, POA History of subcapsular hematoma of the right subhepatic space noted on abdominal CT from 12/2024, from TIPS postprocedure, POA Discharge Instructions: Reason for stay/procedures: Decompensated cirrhosis with ascites, tips shunt in place, therapeutic paracentesis was performed on 01/14/2025 and 4.7 L fluid was removed. Daily monitoring: Weigh every morning after voiding; right id down. Call if > 2-3 lb in24 hours or >5lb in a week Track belly size, leg swelling, shortness of breath, urinary output, and mental status. Bowel regimen(encephalopathy prevention): Take lactulose as prescribed to target 2-3 soft bowel movements per day. Alcohol: Complete abstinence from alcohol When to seek urgent care/ER: Worsening confusion or sleepiness, fever >100.4 F, severe abdominal pain, black or bloody stool, bloody vomiting, chest pain, trouble breathing, more decreased urination, syncope, or rapid increasing abdominal girth/weight. Future paracentesis: You may need paracentesis again if fluid reaccumulates. Followup in 1-2 weeks with PCP Follow up with GI/hepatology in 2 weeks Home Medications: Active Scripts Midodrine HCl (Midodrine HCl) 5 Mg Tablet, 1 TAB PO TID for 30 Days, #90 TAB 0 Refills Prov:MICHOACANO ORTIZ MD 01/18/25 Lactulose (Lactulose) 10 Gram/15 Ml Solution, 30 ML PO BID for constipation, #500 ML 1 Refill Prov:RADHA MEDINA 01/10/25 Lactulose (Lactulose) 20 Gram Packet, 20 GM PO TID for 30 Days, #30 PKT Prov:TING LOU MD 12/31/24 Spironolactone (Spironolactone) 100 Mg Tablet, 1 TAB PO DAILY for 30 Days, #30 TAB 0 Refills Prov:TING LOU MD 12/21/24 Furosemide (Furosemide) 40 Mg Tablet, 1 TAB PO DAILY for 30 Days, #30 TAB 0 Refills Prov:TING LOU MD 12/21/24 Reported Medications Acetaminophen (Acetaminophen) 500 Mg Tablet, 1 TAB PO Q6HPRN PRN for pain or fever for 15 Days, #60 TAB 0 Refills 12/15/24 Na Phos,M-B/Na Phos,Di-Ba (Fleet Enema) 19 Gram-7 Gram/118 Ml Enema, 133 ML RC q24 for constipation, ENEMA 12/15/24 Thiamine HCl (Vitamin B-1) 100 Mg Tablet, 1 TAB PO DAILY for 30 Days, #30 TAB 0 Refills 12/15/24 Multivitamin with Minerals (Daily Vitamin Formula-Minerals) 1 Each Tablet, 1 TAB PO DAILY for 30 Days, #30 TAB 0 Refills 12/15/24 Discontinued Reported Medications Potassium Chloride (Potassium Chloride) 20 Meq/15 Ml Liquid, 15 ML PO BID for low potassium for 30 Days, #473 ML 0 Refills 12/15/24 [glycolax] No Conflict Check, 17 GM PO for constipation 12/15/24 Ondansetron HCl (Zofran) 4 Mg/2 Ml Inj, 4 MG PO q6 for nausea/vomiting, ML 12/15/24 Clotrimazole (Clotrimazole) 1 % Cream..g., 1 APPL TP DAILY for toenails for 7 Days, #15 GM 0 Refills apply to affected area(s) 12/15/24 Omeprazole (Omeprazole) 20 Mg Capsule.dr, 1 CAP PO DAILY for 30 Days, #30 CAP 0 Refills 12/15/24 Simethicone (Simethicone) 80 Mg Tab.chew, 1 TAB PO TID PRN for prn for 6 Days, #20 TAB 0 Refills 12/15/24 Carvedilol (Carvedilol) 3.125 Mg Tablet, 1 TAB PO BID for 30 Days, #60 TAB 0 Refills 12/15/24 Discontinued Scripts Midodrine HCl (Midodrine HCl) 10 Mg Tablet, 1.5 TAB PO TID for 30 Days, #90 TAB 0 Refills Prov:TING LOU MD 12/21/24 Lactulose (Lactulose) 10 Gram/15 Ml Solution, 30 ML PO BID for constipation, #500 ML 0 Refills Prov:TING LOU MD 12/21/24 New Medications: Midodrine HCl (Midodrine HCl) 5 Mg Tablet 1 TAB PO TID for 30 Days, #90 TAB 0 Refills Continued Medications: Acetaminophen (Acetaminophen) 500 Mg Tablet 1 TAB PO Q6HPRN PRN for pain or fever for 15 Days, #60 TAB 0 Refills Furosemide (Furosemide) 40 Mg Tablet 1 TAB PO DAILY for 30 Days, #30 TAB 0 Refills Lactulose (Lactulose) 20 Gram Packet 20 GM PO TID for 30 Days, #30 PKT Lactulose (Lactulose) 10 Gram/15 Ml Solution 30 ML PO BID for constipation, #500 ML 1 Refill Multivitamin with Minerals (Daily Vitamin Formula-Minerals) 1 Each Tablet 1 TAB PO DAILY for 30 Days, #30 TAB 0 Refills Na Phos,M-B/Na Phos,Di-Ba (Fleet Enema) 19 Gram-7 Gram/118 Ml Enema 133 ML RC q24 for constipation, ENEMA Spironolactone (Spironolactone) 100 Mg Tablet 1 TAB PO DAILY for 30 Days, #30 TAB 0 Refills Thiamine HCl (Vitamin B-1) 100 Mg Tablet 1 TAB PO DAILY for 30 Days, #30 TAB 0 Refills Discontinued Medications: Carvedilol (Carvedilol) 3.125 Mg Tablet 1 TAB PO BID for 30 Days, #60 TAB 0 Refills Clotrimazole (Clotrimazole) 1 % Cream..g. 1 APPL TP DAILY for toenails for 7 Days, #15 GM 0 Refills apply to affected area(s) [glycolax] () 17 GM PO for constipation Lactulose (Lactulose) 10 Gram/15 Ml Solution 30 ML PO BID for constipation, #500 ML 0 Refills Midodrine HCl (Midodrine HCl) 10 Mg Tablet 1.5 TAB PO TID for 30 Days, #90 TAB 0 Refills Omeprazole (Omeprazole) 20 Mg Capsule.dr 1 CAP PO DAILY for 30 Days, #30 CAP 0 Refills Ondansetron HCl (Zofran) 4 Mg/2 Ml Inj 4 MG PO q6 for nausea/vomiting, ML Potassium Chloride (Potassium Chloride) 20 Meq/15 Ml Liquid 15 ML PO BID for low potassium for 30 Days, #473 ML 0 Refills Simethicone (Simethicone) 80 Mg Tab.chew 1 TAB PO TID PRN for prn for 6 Days, #20 TAB 0 Refills Time spent arranging discharge: 1-30 minutes ATTESTATION BY PHYSICIAN I have seen and examined the patient. I reviewed the documentation, medical decision making, and treatment plan as noted by the resident physician above. I agree with the findings and plan of care. MAGALI KRAUSE MD, ADIL SHAH QUADRI MD Jan 18, 2025 12:56
--- NOTE | 2025-01-19 11:59 | PN ---
NEPHROLOGY NOTE DATE OF SERVICE: 01/18/2025 SUBJECTIVE: This patient had multiple medical problems including hyponatremia and underlying liver disease. Multiple other comorbidities. No fevers, chills, or rigors. The patient has no abdominal pain, nausea, or vomiting. No chest pain or orthopnea. Other systemic review is unchanged. PHYSICAL EXAMINATION: GENERAL: Pale, no other distress. VITAL SIGNS: Blood pressure is 109/66, pulse is 88, respiratory rate is 18, and afebrile. HEENT: Head is atraumatic and normocephalic. Pupils are round and reactive. Sclerae are anicteric. Conjunctivae not pale. Oral mucosa is not dry. NECK: Supple. No masses or bruits. Thyroid is . CHEST: Shows equal thoracic percussion note being resonant in all areas. CARDIAC: Regular rhythm. No rubs. No S3 or S4. No parasymphyseal. ABDOMEN: No guarding or tenderness. Bowel sounds heard. LABORATORY DATA: We have reviewed the available labs in detail. Hemoglobin 8.9. Platelet counts are low at 201. Sodium is remaining low at 127. Other electrolytes are reviewed. PROBLEMS: 1. Hyponatremia with underlying cirrhosis. 2. Previous alcohol use. 3. Electrolyte problems. PLAN AND RECOMMENDATIONS: Moderate fluid restriction. Hyponatremia will be resistant to treatment because of underlying cirrhosis. I will suggest alcohol abstinence. I have discussed with the primary team. Further work for any secondary causes for hyponatremia are present. We will follow up closely. I thank you for this patient. I have discussed with other team members in detail. TID: [id number] RECEIPT: [id number]
== END 2025-01-18 15:26 | disposition home or self-care (01) | DRG 433 ==
LOC: EDH 09:12 → EDHIP 13:01 → 4BH 01-14 04:55
PROVIDERS: ADMIT Internal Medicine; ATTEND Internal Medicine
PROC: 0W9G3ZZ Drainage of Peritoneal Cavity, Percutaneous Approach (ICD-10-PCS; 2025-01-14)
PROC: 0W993ZZ Drainage of Right Pleural Cavity, Percutaneous Approach (ICD-10-PCS; principal; 2025-01-15)
DX: K70.31 Alcoholic cirrhosis of liver with ascites (principal); D68.9 Coagulation defect, unspecified; J91.8 Pleural effusion in other conditions classified elsewhere; E88.09 Other disorders of plasma-protein metabolism, not elsewhere classified; E86.1 Hypovolemia; I10 Essential (primary) hypertension; K76.9 Liver disease, unspecified; F10.10 Alcohol abuse, uncomplicated; D63.8 Anemia in other chronic diseases classified elsewhere; E87.1 Hypo-osmolality and hyponatremia; J98.11 Atelectasis; R00.0 Tachycardia, unspecified; D72.829 Elevated white blood cell count, unspecified; E80.6 Other disorders of bilirubin metabolism; E78.5 Hyperlipidemia, unspecified; Z87.891 Personal history of nicotine dependence; Z79.899 Other long term (current) drug therapy
CPT/HCPCS: 32555; 36415; 49083; 71045; 74176; 76700; 80048; 80053; 80076; 81001; 82042; 82105; 82140; 82378; 82533; 82570; 82728; 82945; 83540; 83550; 83605; 83615; 83690; 83735; 83930; 83935; 83986; 84100; 84145; 84157; 84300; 84443; 84484; 84550; 85025; 85027; 85610; 85651; 85730; 86140; 86316; 86850; 86900; 86901; 87040; 87071; 87116; 87205; 87206; 89051; 93005; 93970; 96365; 96366; 96375; 99282; 99284; 99291; C1729; G0378; J0696; J1650; J2270; J2405; J2470; J3411; J3475; J3490; P9047

== ENCOUNTER 2025-01-24 09:41 | Observation (INO) | payer OTHER ==
[~2025-01-24] VITALS: Ht 165.1 cm; Wt 66.6 kg
[~2025-01-24 09:41] MED LIST changes: -CARV3.12 PO; -CLOT15CR23 TP; -GLYCOLAX PO; -MIDO10TA3 PO; +MIDO5TAB4 PO; -OMEP20CA12 PO; -ONDA22I PO; -POTA20LI52 PO; -SIME80TA12 PO
--- NOTE | 2025-01-24 09:46 | ERN ---
General Chief Complaint: Abdominal Pain Stated Complaint: PARACENTESIS Time Seen by MD: 09:43 Source: patient History of Present Illness Initial Comments Patient is a 54-year-old gentleman with a history of liver cirrhosis stating that he was sent by his doctor to get a paracentesis. Patient is not complaining of shortness of breath. Allergies: Coded Allergies: NSAIDS (Non-Steroidal Anti-Inflamma (Unverified Allergy, Intermediate, 06/09/24) aspirin (Unverified Allergy, Intermediate, 06/09/24) ibuprofen (Unverified Allergy, Intermediate, 06/09/24) Home Meds Active Scripts Midodrine HCl (Midodrine HCl) 5 Mg Tablet, 1 TAB PO TID for 30 Days, #90 TAB 0 Refills Prov:MICHOACANO ORTIZ MD 01/18/25 Lactulose (Lactulose) 10 Gram/15 Ml Solution, 30 ML PO BID for constipation, #500 ML 1 Refill Prov:RADHA MEDINA LOW PRESSURE BOILER TENDER 01/10/25 Lactulose (Lactulose) 20 Gram Packet, 20 GM PO TID for 30 Days, #30 PKT Prov:TING LOU MD 12/31/24 Spironolactone (Spironolactone) 100 Mg Tablet, 1 TAB PO DAILY for 30 Days, #30 TAB 0 Refills Prov:TING LOU MD 12/21/24 Furosemide (Furosemide) 40 Mg Tablet, 1 TAB PO DAILY for 30 Days, #30 TAB 0 Refills Prov:TING LOU MD 12/21/24 Reported Medications Acetaminophen (Acetaminophen) 500 Mg Tablet, 1 TAB PO Q6HPRN PRN for pain or fever for 15 Days, #60 TAB 0 Refills 12/15/24 Na Phos,M-B/Na Phos,Di-Ba (Fleet Enema) 19 Gram-7 Gram/118 Ml Enema, 133 ML RC q24 for constipation, ENEMA 12/15/24 Thiamine HCl (Vitamin B-1) 100 Mg Tablet, 1 TAB PO DAILY for 30 Days, #30 TAB 0 Refills 12/15/24 Multivitamin with Minerals (Daily Vitamin Formula-Minerals) 1 Each Tablet, 1 TAB PO DAILY for 30 Days, #30 TAB 0 Refills 12/15/24 Discontinued Reported Medications Potassium Chloride (Potassium Chloride) 20 Meq/15 Ml Liquid, 15 ML PO BID for low potassium for 30 Days, #473 ML 0 Refills 12/15/24 [glycolax] No Conflict Check, 17 GM PO for constipation 12/15/24 Ondansetron HCl (Zofran) 4 Mg/2 Ml Inj, 4 MG PO q6 for nausea/vomiting, ML 12/15/24 Clotrimazole (Clotrimazole) 1 % Cream..g., 1 APPL TP DAILY for toenails for 7 Days, #15 GM 0 Refills apply to affected area(s) 12/15/24 Omeprazole (Omeprazole) 20 Mg Capsule.dr, 1 CAP PO DAILY for 30 Days, #30 CAP 0 Refills 12/15/24 Simethicone (Simethicone) 80 Mg Tab.chew, 1 TAB PO TID PRN for prn for 6 Days, #20 TAB 0 Refills 12/15/24 Carvedilol (Carvedilol) 3.125 Mg Tablet, 1 TAB PO BID for 30 Days, #60 TAB 0 Refills 12/15/24 Discontinued Scripts Midodrine HCl (Midodrine HCl) 10 Mg Tablet, 1.5 TAB PO TID for 30 Days, #90 TAB 0 Refills Prov:TING LOU MD 12/21/24 Lactulose (Lactulose) 10 Gram/15 Ml Solution, 30 ML PO BID for constipation, #500 ML 0 Refills Prov:TING LOU MD 12/21/24 Past Medical History Past Medical History: Hypertension, Other Medical History Other: LIVER CIRRHOSIS Past Surgical History: None Family History Family History: Negative Social History Social History: ETOH ROS Dictation CONSTITUTIONAL: No chills, no fever, no weakness, no diaphoresis, no malaise. HEAD/FACE: No signs of trauma. EENT: No eye pain, no blurred vision, no tearing, no double vision, no ear pain, no ear discharge, no nose pain, no nasal congestion, no throat pain, no throat swelling, no mouth pain. RESPIRATORY: No cough, no orthopnea, no SOB, no stridor, no wheezing. CARDIOVASCULAR: No chest pain, no edema, no palpitations, no syncope. GASTROINTESTINAL/ABDOMINAL: No abdominal pain, no constipation, no diarrhea, no nausea, no vomiting. GENITOURINARY: No abnormal discharge, no dysuria, no frequent urination, no hematuria. No complaints of pain in the genitals. MUSCULOSKELETAL: No back pain, no gout, no joint pain, no joint swelling, no muscle pain, no muscle stiffness, no neck pain. INTEGUMENTARY: No change in color, no change in hair/nails, no dryness, no lesion, no lumps, no rash. NEUROLOGICAL/PSYCH: No anxiety, not depressed, no emotional problem, no hea dache, no numbness, no pre-existing deficit, no history of seizures, no tremors, no weakness. HEMATOLOGIC/LYMPHATIC: Not anemic, no history of blood clots, no apparent bleeding, no bruising, glands not swollen. All Systems Negative, Except as Noted. Physical Exam Physical Exam Dictation VITAL SIGNS: Reviewed. GENERAL APPEARANCE: Alert, oriented x3, no acute distress, obese. HEAD AND FACE: Non-traumatic. EYES: PERRL, pink conjunctivas, eyelid no trauma, anterior chamber clear. EARS: Pinnas intact and no signs of trauma or erythema. Ear canals clear and no discharge. TMs no erythema. NOSE: No discharge, no bleeding. OROPHARYNX: Mouth normal, teeth no caries, tongue pink. Pharynx clear, no erythema. Tonsils no exudates, no abscesses noted. Mucous membrane moist. NECK: Supple, non-tender, no thyromegaly, no masses, no JVD, no bruits. BREAST: Deferred. CHEST: No tenderness, no crepitus, no paradoxical movement, no retractions. LUNGS: Clear, well-ventilated, symmetric, no rales, no wheezing, no rhonchi, no stridor, good breath sounds bilaterally. HEART: Regular rate, regular rhythm, no murmur, no gallops. VASCULAR: No peripheral edema. ABDOMEN: Soft, positive bowel sounds, distended, no guarding, nontender, no rebound, no masses no hepatomegaly, no splenomegaly, no Kruger's sign, no hernias. RECTAL: Deferred. GENITAL: Deferred. NEUROLOGICAL: Normal speech, gross motor function intact, gross sensory function intact. MUSCULOSKELETAL: Neck nontender, full range of motion, back nontender, full range of motion. EXTREMITIES: Nontender, full range of motion. SKIN: Color pink, dry, no turgor, no rash, no lacerations, no abrasions, no contusions. LYMPHATICS: Deferred. Eye: bilateral eye normal inspection, bilateral eye PERRL, bilateral eye EOMI, bilateral eye normal Fundi, bilateral eye abnormal EOM, bilateral eye abnormal pupil, bilateral eye conjunctivae pale, bilateral eye eyelid inflammation, bilateral eye photophobia, bilateral eye scleral icterus, bilateral eye other Results Laboratory and Microbiology Lab and Micro Result Laboratory Tests Test 01/24/25 10:05 01/24/25 10:11 White Blood Count 8.1 K/uL (4.8-10.8) Red Blood Count 2.44 MIL/uL (4.50-6.20) L Hemoglobin 8.4 g/dL (14.0-18.0) L Hematocrit 25.0 % (42-54) L Mean Corpuscular Volume 102.5 fL (79-99) H Mean Corpuscular Hemoglobin 34.4 pg (27.0-33.0) H Mean Corpuscular Hemoglobin Concent 33.6 g/dL (32.0-36.0) Red Cell Distribution Width 18.7 % (11.0-15.5) H Platelet Count 143 K/uL (130-400) Mean Platelet Volume 8.7 fL (7.5-10.5) Immature Granulocyte % (Auto) 0.4 % (0-1) Neutrophils (%) (Auto) 76.8 % (40.0-77.0) Lymphocytes (%) (Auto) 14.1 % (21.0-51.0) L Monocytes (%) (Auto) 7.3 % (3.0-13.0) Eosinophils (%) (Auto) 1.2 % (0.0-8.0) Basophils (%) (Auto) 0.2 % (0.0-5.0) Neutrophils # (Auto) 6.2 K/uL (1.8-7.7) Lymphocytes # (Auto) 1.1 K/uL (1.0-4.8) Monocytes # (Auto) 0.6 K/uL (0.1-1.0) Eosinophils # (Auto) 0.10 K/uL (0.00-0.70) Basophils # (Auto) 0.02 K/uL (0.00-0.20) Absolute Immature Granulocyte (auto 0.03 K/uL (0-1) Nucleated Red Blood Cells 0.0 % (0.0-0.19) Sodium Level 131 mmol/L (136-145) L Potassium Level 3.4 mmol/L (3.5-5.1) L Chloride Level 101 mmol/L (101-111) Carbon Dioxide Level 23 mmol/L (21-32) Blood Urea Nitrogen 15 mg/dL (7-18) Creatinine 0.7 mg/dL (0.5-1.3) Glomerular Filtration Rate Calc 111 mL/min (>90) Random Glucose 96 mg/dL (70-105) Total Calcium 7.4 mg/dL (8.5-10.1) L Troponin I High Sensitivity 4 ng/L (4-75) Urine Color LIGHT-YELLOW (YELLOW) Urine Appearance CLEAR (CLEAR) Urine pH 6.0 (5.0-8.0) Urine Specific [place] 1.008 (1.001-1.031) Urine Protein NEGATIVE mg/dL (NEGATIVE) Urine Glucose (UA) NEGATIVE mg/dL (NEGATIVE) Urine Ketones NEGATIVE mg/dL (NEGATIVE) Urine Occult Blood NEGATIVE (NEGATIVE) Urine Nitrate NEGATIVE (NEGATIVE) Urine Bilirubin NEGATIVE mg/dL (NEGATIVE) Urine Urobilinogen 0.2 mg/dL (0.2-1.0) Urine Leukocyte Esterase NEGATIVE Pattie/uL Urine Opiates Screen NEGATIVE (NEGATIVE) Urine Barbiturates Screen NEGATIVE (NEGATIVE) Urine Phencyclidine Screen NEGATIVE (NEGATIVE) Urine Amphetamines Screen NEGATIVE (NEGATIVE) Urine Benzodiazepines Screen NEGATIVE (NEGATIVE) Urine Cocaine Screen NEGATIVE (NEGATIVE) Urine Marijuana (THC) Screen NEGATIVE (NEGATIVE) Labs Reviewed?: Yes EKG/XRAY/US/CT/MRI EKG Comment 01/24/2025 time 9:52 a.m. Ventricular rate 99 Sinus rhythm [place] [address] wave elevation or depression X-RAY Comment Chest x-ray- right-sided pleural effusion MDM MDM: Differential diagnosis: Right-sided pleural effusion, shortness of breath, history of liver cirrhosis Rationale: Tests considered and ordered secondary to shared decision making include: Previous outside records reviewed: Old ER visits. Risk of complication and/or morbidity or mortality of patient management: None Medications-Per medication reconciliation Need for hospitalization: Patient does meet criteria for hospitalization. Need for emergency major/minor surgery: No There are no social concerns with this patient. Prescription drug management Prescriptions will include symptomatic care Patient's prior external medical records from other ER visits were reviewed by me as indicated. Prior testing and results from previous visits were reviewed. Prior tests were taken into account with medical decision making and resource utilization, independent historian/historians were used to obtain complete medical history. I independently interpreted the test that were performed, results were reviewed by me and considered findings on radiology if ordered. Medical management and examination interpretation discussions were had by me with other qualified healthcare professionals as indicated for the patient's care. Patient will be admitted under the care of hospitalist group ED Course Orders Procedure Category Date Status Time Cbc With Differential LAB 01/24/25 In Process 09:51 Chest 1vw RAD 01/24/25 Resulted 09:51 12 Lead Ekg Tracing- EKG 01/24/25 Complete Technical 09:51 Troponin I High LAB 01/24/25 Complete Sensitivity 09:51 Urinalysis Profile LAB 01/24/25 Complete 09:51 Basic Metabolic Panel LAB 01/24/25 Complete 09:51 Drug Screen Urine LAB 01/24/25 Complete 09:51 Vital Signs Date Time Temp Pulse Resp B/P (MAP) Pulse Ox O2 Delivery O2 Flow Rate FiO2 01/24/25 11:15 98.2 100 20 135/87 99 Room Air* 0 21 01/24/25 10:01 98.4 102 17 136/86 100 Room Air* 0 21 01/24/25 09:42 98.2 103 16 140/87 98 Room Air 0 DX & DISP Disposition: Inpatient Decision to Admit Time: 11:17 Departure Impression: Primary Impression: Pleural effusion Additional Impressions: History of cirrhosis of liver, SOB (shortness of breath) Condition: Stable Referrals: JOLLY BOOGIE MD (PCP) LEATHA GUERRA MD Jan 24, 2025 09:46
[2025-01-24 10:08] LABS: IMMATURE GRANULOCYTE ABSOLUTE 0.03 K/uL (0-1); NUCLEATED RED BLOOD CELLS 0.0 % (0.0-0.19); PLATELET COUNT (AUTO) 143 K/uL (130-400); RED BLOOD CELL COUNT(AUTO) 2.44 MIL/uL (4.50-6.20); RED CELL DISTRIBUTION WIDTH 18.7 % (11.0-15.5); WHITE BLOOD COUNT (AUTO) 8.1 K/uL (4.8-10.8)
[2025-01-24 10:16] LABS: CREATININE 0.7 mg/dL (0.5-1.3); GLOMERULAR FILTR. RATE CALC 111.0 mL/min (>90); GLUCOSE,RANDOM 96.0 mg/dL (70-105); SODIUM SERUM 131.0 mmol/L (136-145); UREA NITROGEN, BLOOD 15.0 mg/dL (7-18)
--- NOTE | 2025-01-24 10:29 | EKG ---
[facility] Test Date: 2025-01-24 Test Time: 09:52:25 Pat Name: CHAN GARDINER Department: EDH Room: ED Gender: M Scale Clerk: [id number] : 1970 Requested By: LEATHA GUERRA Order Number: [id number] Reading MD: Camilla Bridges Measurements Intervals Blanket Rate: 99 P: 10 HI: 136 QRS: 25 QRSD: 89 T: 2 QT: 360 QTc: 463 Interpretive Statements Sinus rhythm Compared to ECG 01/13/2025 10:42:06 Sinus tachycardia no longer present Myocardial infarct finding no longer present Electronically Signed On 01-24-2025 13:49:45 LINUX SYSTEMS ADMINISTRATOR by Camilla Bridges Please click the below link to view image of tracing.
[2025-01-24 10:49] LABS: AMPHET/METH SCREEN,URINE NEGATIVE (NEGATIVE); BARBITURATE SCREEN, URINE NEGATIVE (NEGATIVE); CANNABINOID SCREEN,URINE NEGATIVE (NEGATIVE); COCAINE SCREEN,URINE NEGATIVE (NEGATIVE)
[2025-01-24 10:53] LABS: APPEARANCE,URINE CLEAR (CLEAR); GLUCOSE, URINE (UA) NEGATIVE (NEGATIVE); LEUKOCYTE ESTERASE ,URINE NEGATIVE Leu/uL (NEGATIVE); NITRATE,URINE NEGATIVE (NEGATIVE); OCCULT BLOOD,URINE NEGATIVE (NEGATIVE)
[2025-01-24 10:56] LABS: ADD UA MICROSCOPIC NO
--- NOTE | 2025-01-24 11:06 | HMCIMG ---
EXAM: CR Chest, AP view. CLINICAL HISTORY: CP, effusion. COMPARISON: 01/17/2025 FINDINGS: Homogenous opacity in the right lower zone with thickening of the right minor fissure - small pleural effusion with underlying passive collapse of lung parenchyma. The rest of the lung lance show bronchovascular prominence. No pneumothorax. The cardiomediastinal silhouette is within normal limits. No acute osseous abnormality. IMPRESSION: Small to medium right pleural effusion with passive collapse of underlying lung parenchyma. No acute abnormality seen. Compared to the previous radiograph dated 01/17/2025, there is an interval increase in the size of the pleural effusion. /[place]
--- NOTE | 2025-01-24 11:25 | HP ---
[facility] HISTORY AND PHYSICAL Date of Service: Jan 24, 2025 Time of Service: 11:24 HISTORY OF PRESENT ILLNESS: [ ] PCP: Nita Crouch MD Admission date: CC: stated I due for a paracentitis This is a 54 year old presents in ED with chief complaints of dyspnea on minimal exertion, edema to to lower extremities. Onset ongoing for one-week. Patient was recently diagnosed liver cirrhosis patient recently had a paracentesis a week ago. Patient reports being compliant with medication he is currently on spironolactone 100 mg p.o. daily Lasix 40 p.o. daily midodrine five p.o. t.i.d. and lactulose 30 mL b.i.d. PMH: Alcoholic liver cirrhosis, history of portal gastropathy, history of hyponatremia, history of recurrent ascites Patient denies chest pain, palpitations, dizziness, lightheadedness. ER workup was consistent with large right-sided pleural effusion. Patient was seen in ED 19 patient appears dyspneic during my evaluation. Discussed the plan of care patient is being scheduled for a thoracentesis today pending Chest US REVIEW OF SYSTEMS Point ROS was obtained all relevant positive documented otherwise ROS negative PAST MEDICAL HISTORY: [ ] Refer to HPI PAST SURGICAL HISTORY: [ ]Paracentesis, tips placement PAST SOCIAL HISTORY: [ ]History of alcoholism, last drink was three months ago FAMILY HISTORY: [ ] Noncontributory Coded Allergies: NSAIDS (Non-Steroidal Anti-Inflamma (Unverified Allergy, Intermediate, 06/09/24) aspirin (Unverified Allergy, Intermediate, 06/09/24) ibuprofen (Unverified Allergy, Intermediate, 06/09/24) PHYSICAL EXAM GENERAL APPEARANCE: The patient is awake, alert, and oriented, in no acute cardiopulmonary distress. NEUROLOGICAL: Cranial nerves II-XII grossly intact. Motor is 5/5 in bilateral upper and lower extremities proximal to distal. No sensory deficits. HEENT: Face is symmetric. Pupils are equal and reactive. Extraocular movements are intact. NECK: Supple. No JVD. No thyromegaly. No submental, submandibular, pre-/p ostauricular, occipital or supraclavicular lymphadenopathy. CHEST: Normal chest expansion. No Telemetry. LUNGS: Absence of any rales, rhonchi or any wheezing. CARDIOVASCULAR: Regular. S1 and S2 normal. No appreciable rubs, murmurs or gallops. ABDOMEN: Soft, nontender, and nondistended. There is no rebound, voluntary guarding, or rigidity. : Deferred. No [place]. EXTREMITIES: Non-edematous and not cyanotic. No clubbing. Good capillary refill. SKIN: No skin breakdown. Vital Sign (Last 24 Hours) 01/24/25 11:15 Temp 98.2 Pulse 100 Resp 20 B/P (MAP) 135/87 Pulse Ox 99 O2 Delivery Room Air* O2 Flow Rate 0 FiO2 21 LABS: Laboratory: Test 01/24/25 10:11 01/24/25 10:05 Range/Units Urine Color LIGHT-YELLOW YELLOW Urine Appearance CLEAR CLEAR Urine pH 6.0 5.0-8.0 Urine Specific [place] 1.008 1.001-1.031 Urine Protein NEGATIVE NEGATIVE mg/dL Urine Glucose (UA) NEGATIVE NEGATIVE mg/dL Urine Ketones NEGATIVE NEGATIVE mg/dL Urine Occult Blood NEGATIVE NEGATIVE Urine Nitrate NEGATIVE NEGATIVE Urine Bilirubin NEGATIVE NEGATIVE mg/dL Urine Urobilinogen 0.2 0.2-1.0 mg/dL Urine Leukocyte Esterase NEGATIVE NEGATIVE Pattie/uL Urine Opiates Screen NEGATIVE NEGATIVE Urine Barbiturates Screen NEGATIVE NEGATIVE Urine Phencyclidine Screen NEGATIVE NEGATIVE Urine Amphetamines Screen NEGATIVE NEGATIVE Urine Benzodiazepines Screen NEGATIVE NEGATIVE Urine Cocaine Screen NEGATIVE NEGATIVE Urine Marijuana (THC) Screen NEGATIVE NEGATIVE White Blood Count 8.1 4.8-10.8 K/uL Red Blood Count 2.44 L 4.50-6.20 MIL/uL Hemoglobin 8.4 L 14.0-18.0 g/dL Hematocrit 25.0 L 42-54 % Mean Corpuscular Volume 102.5 H 79-99 fL Mean Corpuscular Hemoglobin 34.4 H 27.0-33.0 pg Mean Corpuscular Hemoglobin Concent 33.6 32.0-36.0 g/dL Red Cell Distribution Width 18.7 H 11.0-15.5 % Platelet Count 143 130-400 K/uL Mean Platelet Volume 8.7 7.5-10.5 fL Immature Granulocyte % (Auto) 0.4 0-1 % Neutrophils (%) (Auto) 76.8 40.0-77.0 % Lymphocytes (%) (Auto) 14.1 L 21.0-51.0 % Monocytes (%) (Auto) 7.3 3.0-13.0 % Eosinophils (%) (Auto) 1.2 0.0-8.0 % Basophils (%) (Auto) 0.2 0.0-5.0 % Neutrophils # (Auto) 6.2 1.8-7.7 K/uL Lymphocytes # (Auto) 1.1 1.0-4.8 K/uL Monocytes # (Auto) 0.6 0.1-1.0 K/uL Eosinophils # (Auto) 0.10 0.00-0.70 K/uL Basophils # (Auto) 0.02 0.00-0.20 K/uL Absolute Immature Granulocyte (auto 0.03 0-1 K/uL Nucleated Red Blood Cells 0.0 0.0-0.19 % Sodium Level 131 L 136-145 mmol/L Potassium Level 3.4 L 3.5-5.1 mmol/L Chloride Level 101 101-111 mmol/L Carbon Dioxide Level 23 21-32 mmol/L Blood Urea Nitrogen 15 7-18 mg/dL Creatinine 0.7 0.5-1.3 mg/dL Glomerular Filtration Rate Calc 111 >90 mL/min Random Glucose 96 70-105 mg/dL Total Calcium 7.4 L 8.5-10.1 mg/dL Troponin I High Sensitivity 4 4-75 ng/L DIAGNOSTICS / RADIOLOGY: [ ] ASSESSMENt Large right pleural Effusion POA Macrocytic and Hyperchromic chronic Anemia electrolytes derangement: hypokalemia, POA hyponatremia secondary to liver cirrhosis POA History of portal hypertensive gastropathy, POA History of gastritis, POA Prior history of alcohol use, quit alcohol three months ago, POA PLAN: [ ] Admit: Medical-surgical floor condition: Guarded Status: Full code IVF: Hep-Lock Procedure possible thoracentesis pending Chest US Labs cbc, cmp, mag+ Replace electrolytes as needed as per protocol to keep potassium above 4.0 magnesium 2.0. Home medications reviewed and reconciled Lasix 40 mg p.o. daily, spironolactone 100 mg p.o. daily, midodrine 5 mg p.o. t.i.d. lactulose 10 g/3 mL b.i.d.. Tylenol 650 mg po every 4 hrs for fever zofran 4 mg IV every 6 hrs for n/v Hydralazine 5 mg IV every 4 hrs systolic pressure > 160 bowel regiment: lactulose 20 gm PO BID PRN constipation Supportive measures: DVT ppx, GI ppx all questions answered time spent: > 35 min Supervising MD: Dr. Star george/liss This document was generated in part using voice recognition software, occasional wrong word or sound alike substitutions may have occurred due to the inherent limitations of voice recognition software. Read the chart carefully and recognize using context, where the substitutions have occurred. Although every effort was made to edit the content, oyster planter and typing errors may occur ADVANCED CARE PLANNING 1. Which of the following were discussed? Hospice Care - Yes / No Therapeutic options - Yes / No Advance Directives - Yes / No Other discussions - 2. Discussed with who? 3. Voluntary nature of this service was explained to the patient? Yes / No 4. Amount of time spent - 5. Reviewed by Physician? (if this service was performed by NPP) Yes / No ATTESTATION BY PHYSICIAN I have seen and examined the patient. I reviewed the documentation, medical decision making, and treatment plan as noted by the mid-level provider above. I agree with the findings and plan of care. Yelena Richardson MD, [facility] Jan 24, 2025 11:25
[2025-01-24 11:55] LABS: INR 1.31 (0.85-1.15)
[2025-01-24] MEDS ORDERED: LACTULOSE 20 GM/30 ML UDCUP PO PRN (12:30)
--- NOTE | 2025-01-24 14:17 | NUR ---
REPORT GIVEN TO ANNA MOCK AT 1415 PT STABLE NO DISTRESS VITALS WNL, NO C/O PAIN NOW, JOSE SOIL TECHNOLOGIST NURSE TRANSFERRED PT TO IR LAB FOR THORACENTISIS, ANNA AWARE PT WILL GO TO ROOM 117, PT TRANFERRED VIA STRETCHER WITH PERSONAL BELONGINGS, CLOTHING, PT WALLET PLACED IN CLEAR BELONGING BAG WITH CLOTHING.
--- NOTE | 2025-01-24 14:28 | NUR ---
U/S RT THORACENTESIS NOT DONE U/S PERFORMED BY Anish YARBROUGH RDMS. IMAGES REVIEWED BY DR Cait MOLINA. PER DR MOLINA NOT ENOUGH FLUID TO SAFELY PERFORM PROCEDURE. ANNA W[place] NOTIFIED OF OUTCOME
[2025-01-24 14:30] VITALS: O2SAT 98
[2025-01-24 14:55] VITALS: BP 135/86; PULSE 103; RESP 18; TEMP 98.2
--- NOTE | 2025-01-24 15:01 | CONS ---
GASTROENTEROLOGY CONSULTATION NOTE Date of Consultation: Jan 24, 2025 Time of Consultation: 15:01 History of Present Illness: [ ] Review of Systems: CONSTITUTIONAL: No malaise or change in sensation of wellbeing. ENMT: No rhinorrhea, otorrhea, sinus pain, ear ache. CARDIOVASCULAR: No angina, palpitations, orthopnea or paroxysmal dyspnea. RESPIRATORY: No SOB. GASTROINTESTINAL: No abdominal pain, nausea, vomiting, diarrhea, hematemesis, melena or change in the patient's habitual bowel movements consistency/number. GENITOURINARY: No dysuria, hematuria or change in bladder continence. MUSCULOSKELETAL: No new muscle pain or decrease in muscular strength. No new joint swelling, redness or tenderness. SKIN: No new rash. Past Medical History: [ ] Past Surgical History: [ ] Past Social History: [ ] Family History: [ ] Coded Allergies: NSAIDS (Non-Steroidal Anti-Inflamma (Unverified Allergy, Intermediate, 06/09/24) aspirin (Unverified Allergy, Intermediate, 06/09/24) ibuprofen (Unverified Allergy, Intermediate, 06/09/24) Physical Exam: GEN: Awake, alert, oriented in person, time and place, and in no acute distress. HEENT: No sinus tenderness. Tympanic membranes were not examined. No rhinorrhea. Oral pharyngeal mucosa is pink, moist and within normal limits. Neck is supple with no cervical lymphadenopathy, thyromegaly or JVD. CHEST: Inspection, palpation and percussion of the chest were unremarkable. Lung auscultation revealed normal breath sounds bilaterally. CARDIAC: PMI is within normal limits. Heart sounds are regular. Normal S1, S2. No gallop or murmur. ABD: Soft, non-tender and not distended. No peritoneal signs on palpation. No organomegaly. Normal bowel sounds. EXT: No cyanosis or clubbing. No edema. SKIN: Intact. No rashes. JOINTS: No evidence of synovitis or acute arthritis. NEURO: Alert and oriented to name, place and person. Cranial nerve examination i s unremarkable. No focal motor deficits. Normal speech. Gait is normal. Strength is normal. Vital Sign (Last 24 Hours) 01/24/25 13:24 Temp 98.2 Pulse 96 Resp 17 B/P (MAP) 124/71 Pulse Ox 98 O2 Delivery Room Air* O2 Flow Rate 0 FiO2 21 Laboratory: [ ] Laboratory: Test 01/24/25 10:11 01/24/25 10:05 Range/Units Urine Color LIGHT-YELLOW YELLOW Urine Appearance CLEAR CLEAR Urine pH 6.0 5.0-8.0 Urine Specific Carver 1.008 1.001-1.031 Urine Protein NEGATIVE NEGATIVE mg/dL Urine Glucose (UA) NEGATIVE NEGATIVE mg/dL Urine Ketones NEGATIVE NEGATIVE mg/dL Urine Occult Blood NEGATIVE NEGATIVE Urine Nitrate NEGATIVE NEGATIVE Urine Bilirubin NEGATIVE NEGATIVE mg/dL Urine Urobilinogen 0.2 0.2-1.0 mg/dL Urine Leukocyte Esterase NEGATIVE NEGATIVE Pattie/uL Urine Opiates Screen NEGATIVE NEGATIVE Urine Barbiturates Screen NEGATIVE NEGATIVE Urine Phencyclidine Screen NEGATIVE NEGATIVE Urine Amphetamines Screen NEGATIVE NEGATIVE Urine Benzodiazepines Screen NEGATIVE NEGATIVE Urine Cocaine Screen NEGATIVE NEGATIVE Urine Marijuana (THC) Screen NEGATIVE NEGATIVE White Blood Count 8.1 4.8-10.8 K/uL Red Blood Count 2.44 L 4.50-6.20 MIL/uL Hemoglobin 8.4 L 14.0-18.0 g/dL Hematocrit 25.0 L 42-54 % Mean Corpuscular Volume 102.5 H 79-99 fL Mean Corpuscular Hemoglobin 34.4 H 27.0-33.0 pg Mean Corpuscular Hemoglobin Concent 33.6 32.0-36.0 g/dL Red Cell Distribution Width 18.7 H 11.0-15.5 % Platelet Count 143 130-400 K/uL Mean Platelet Volume 8.7 7.5-10.5 fL Immature Granulocyte % (Auto) 0.4 0-1 % Neutrophils (%) (Auto) 76.8 40.0-77.0 % Lymphocytes (%) (Auto) 14.1 L 21.0-51.0 % Monocytes (%) (Auto) 7.3 3.0-13.0 % Eosinophils (%) (Auto) 1.2 0.0-8.0 % Basophils (%) (Auto) 0.2 0.0-5.0 % Neutrophils # (Auto) 6.2 1.8-7.7 K/uL Lymphocytes # (Auto) 1.1 1.0-4.8 K/uL Monocytes # (Auto) 0.6 0.1-1.0 K/uL Eosinophils # (Auto) 0.10 0.00-0.70 K/uL Basophils # (Auto) 0.02 0.00-0.20 K/uL Absolute Immature Granulocyte (auto 0.03 0-1 K/uL Nucleated Red Blood Cells 0.0 0.0-0.19 % Red Blood Cell Morphology See comments Prothrombin Time 13.5 H 9.6-11.6 SEC Prothromb Time International Ratio 1.31 H 0.85-1.15 Sodium Level 131 L 136-145 mmol/L Potassium Level 3.4 L 3.5-5.1 mmol/L Chloride Level 101 101-111 mmol/L Carbon Dioxide Level 23 21-32 mmol/L Blood Urea Nitrogen 15 7-18 mg/dL Creatinine 0.7 0.5-1.3 mg/dL Glomerular Filtration Rate Calc 111 >90 mL/min Random Glucose 96 70-105 mg/dL Total Calcium 7.4 L 8.5-10.1 mg/dL Troponin I High Sensitivity 4 4-75 ng/L Current Medications Medications (Trade) Dose Ordered Sig/Ronak Route PRN Reason Start Time Stop Time Status Last Admin Dose Admin Acetaminophen (TYLenol 325MG TAB) 650 mg Q6H PRN PO MILD PAIN (1-3) 01/24/25 12:30 02/23/25 12:29 Famotidine (Pepcid 20mg Tab) 20 mg BID PO 01/24/25 21:00 02/23/25 20:59 Furosemide (LASix 40MG TAB) 40 mg DAILY PO 01/25/25 09:00 02/24/25 08:59 Hydralazine HCl (APRESOLine 20MG INJ) 5 mg Q4H PRN IV ADMINISTER FOR SBP > 160 01/24/25 12:30 02/23/25 12:29 Lactulose (Constulose 20gm/ 30ml Udcup) 20 gm BID PRN PO CONSTIPATION 01/24/25 12:30 02/23/25 12:29 Magnesium Sulfate 50 ml @ 0 mls/hr PROTOCOL PRN IV low mag level 01/24/25 15:00 02/23/25 14:59 Midodrine (PROAMatine 5 MG TABLET) 5 mg TID PO 01/24/25 21:00 02/23/25 20:59 Potassium Chloride 100 ml @ 50 mls/hr AD PRN IV POTASSIUM PROTOCOL 01/24/25 15:00 02/23/25 14:59 Spironolactone (Aldactone 25mg) 100 mg DAILY PO 01/25/25 09:00 02/24/25 08:59 Diagnostics / Radiology: [COPY/PASTE HERE IF NO REPORTS PLEASE DELETE SECTION] Assessment: [ ] Plan: [ ] [facility] Jan 24, 2025 15:01
[2025-01-24 15:49] VITALS: BP 133/84; PULSE 102; RESP 18; TEMP 98.2
[2025-01-24] MEDS ORDERED: PHARMACY COMMUNICATION 1 EACH EACH MISC SCH (16:00)
[2025-01-24 20:00] VITALS: BP 140/83; PULSE 70; RESP 16; TEMP 97.2; O2SAT 100
[2025-01-24] MEDS ORDERED: PoTASSium chl 10% ELIXIR 20MEQ 20 MEQ/15 ML UDCUP PO PRN (20:00)
[2025-01-24] MEDS: PoTASSium chloRIDE 20MEQ ER 20 MEQ ERTAB PO PRN (20:35)
[2025-01-24] MEDS: FAMOTIDINE 20MG TAB PO SCH (20:35)
[2025-01-24 23:50] VITALS: BP 129/74; PULSE 120; RESP 16; TEMP 99
--- NOTE | 2025-01-25 02:57 | HMCIMG ---
STUDY: ULTRASOUND OF THE CHEST (RIGHT HEMITHORAX) CLINICAL INFORMATION: Right pleural effusion. TECHNIQUE: Targeted ultrasound examination of the right hemithorax was performed using a high- and low-frequency transducer to assess the pleural space and underlying lung. COMPARISON: Chest radiograph from 01/24/2025 at 10:28 EST. FINDINGS: RIGHT PLEURAL SPACE: Anechoic fluid is seen in the right pleural space, consistent with a simple right pleural effusion. The effusion is ebwfm-ju-gdqgjuvq in volume, forming a dependent fluid layer with a meniscus above the diaphragm. No definite internal septations or echogenic debris are identified within the scanned field. RIGHT LUNG BASE: Underlying right lower lobe demonstrates partial passive compressive atelectasis adjacent to the effusion. No discrete parenchymal mass is visualized in the insonated lung. DIAPHRAGM AND CHEST WALL: The right hemidiaphragm is visualized and appears smooth and intact. No chest wall mass or focal collection is seen in the examined region. IMPRESSION: * Fbvea-bc-vmlgehmu simple right pleural effusion with adjacent passive compressive atelectasis of the right lower lobe. * Compared with the chest radiograph from 01/24/2025 at 10:28 EST, which showed a vduvt-mg-xeiilr right pleural effusion with passive collapse of the underlying lung, the right pleural effusion appears similar in extent by ultrasound. /Aamir
[2025-01-25 03:49] VITALS: BP 112/67; PULSE 106; RESP 16; TEMP 98.7
[2025-01-25 05:55] LABS: IMMATURE GRANULOCYTE ABSOLUTE 0.03 K/uL (0-1); NUCLEATED RED BLOOD CELLS 0.0 % (0.0-0.19); PLATELET COUNT (AUTO) 127 K/uL (130-400); RED BLOOD CELL COUNT(AUTO) 2.36 MIL/uL (4.50-6.20); RED CELL DISTRIBUTION WIDTH 18.8 % (11.0-15.5); WHITE BLOOD COUNT (AUTO) 7.2 K/uL (4.8-10.8)
[2025-01-25 06:19] LABS: ASPARTATE AMINOTRANSFERASE 34.0 U/L (10-37); CREATININE 0.8 mg/dL (0.5-1.3); GLOMERULAR FILTR. RATE CALC 106.0 mL/min (>90); GLUCOSE,RANDOM 88.0 mg/dL (70-105); SODIUM SERUM 131.0 mmol/L (136-145); TOTAL PROTEIN, SERUM 5.2 g/dL (6.0-8.3); UREA NITROGEN, BLOOD 16.0 mg/dL (7-18)
[2025-01-25 07:57] VITALS: BP 120/79; PULSE 102; RESP 18; TEMP 98
[2025-01-25 08:37] VITALS: O2SAT 99
[2025-01-25] MEDS: SPIRONOLACTONE 25 MG TAB PO SCH (08:37)
[2025-01-25] MEDS: MAGNESIUM 2GM PREMIX 50ML 50 ML IV PRN (08:38)
--- NOTE | 2025-01-25 09:38 | DS ---
Discharge Summary Hospital Course Summary: PCP: Nita Pederson MD Admission date: CC: stated I due for a paracentitis This is a 54 year old presents in ED with chief complaints of dyspnea on minimal exertion, edema to to lower extremities. Onset ongoing for one-week. Patient was recently diagnosed liver cirrhosis patient recently had a paracentesis a week ago. Patient reports being compliant with medication he is currently on spironolactone 100 mg p.o. daily Lasix 40 p.o. daily midodrine five p.o. t.i.d. and lactulose 30 mL b.i.d. PMH: Alcoholic liver cirrhosis, history of portal gastropathy, history of hyponatremia, history of recurrent ascites Patient denies chest pain, palpitations, dizziness, lightheadedness. ER workup was consistent with large right-sided pleural effusion. Patient was seen in ED 19 patient appears dyspneic during my evaluation. Discussed the plan of care patient is being scheduled for a thoracentesis today pending Chest US 01/25/2025. Patient had ultrasound of chest not significant amount of fluids as per IR Dr. MOLINA patient is on room air clinically and hemodynamically stable for discharge patient has already an appointment with GI on this Friday01/28/2025. Patient will continue with spironolactone, Lasix, lactulose. Avoid sodium and fluid restriction to 1.5 L per day. Procedure(s): REASON: RIGHT PLEURAL EFFUSION ORDERING PHYSICIAN: MARIFER AMAYA MD PROCEDURE: CHEST SCAN - US CHEST WALL SOFT TISSUE STUDY: ULTRASOUND OF THE CHEST (RIGHT HEMITHORAX) CLINICAL INFORMATION: Right pleural effusion. TECHNIQUE: Targeted ultrasound examination of the right hemithorax was performed using a high- and low-frequency transducer to assess the pleural space and underlying lung. COMPARISON: Chest radiograph from 01/24/2025 at 10:28 EST. FINDINGS: RIGHT PLEURAL SPACE: Anechoic fluid is seen in the right pleural space, consistent with a simple right pleural effusion. The effusion is oycem-dr-zyhqtave in volume, forming a dependent fluid layer with a meniscus above the diaphragm. No definite internal septations or echogenic debris are identified within the scanned field. RIGHT LUNG BASE: Underlying right lower lobe demonstrates partial passive compressive atelectasis adjacent to the effusion. No discrete parenchymal mass is visualized in the insonated lung. DIAPHRAGM AND CHEST WALL: The right hemidiaphragm is visualized and appears smooth and intact. No chest wall mass or focal collection is seen in the examined region. IMPRESSION: * Sodnu-xy-zqujgpuv simple right pleural effusion with adjacent passive compressive atelectasis of the right lower lobe. * Compared with the chest radiograph from 01/24/2025 at 10:28 EST, which showed a okyij-he-psfunz right pleural effusion with passive collapse of the underlying lung, the right pleural effusion appears similar in extent by ultrasound. 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 PROCEDURES: None IMAGING (S) report attached to summary : US chest, MICROBIOLOGY: report attached to summary; ACTIVITY: ab yoselyn HOME MEDICATIONS reviewed list remain the same CHANGES ON HOME MEDICATIONS none NEW MEDICATIONS none TEACHING: Fluid restrictions and to be compliance of medication regimen. Emergency instructions: The patient was instructed to present to the nearest Emergency Department or call 911 should their symptoms return or worsen. Home Medications: Active Scripts Midodrine HCl (Midodrine HCl) 5 Mg Tablet, 1 TAB PO TID for 30 Days, #90 TAB 0 Refills Prov:MICHOACANO ORTIZ MD 01/18/25 Lactulose (Lactulose) 10 Gram/15 Ml Solution, 30 ML PO BID for constipation, #50 0 ML 1 Refill Prov:RADHA MEDINA 01/10/25 Spironolactone (Spironolactone) 100 Mg Tablet, 1 TAB PO DAILY for 30 Days, #30 TAB 0 Refills Prov:TING LOU MD 12/21/24 Furosemide (Furosemide) 40 Mg Tablet, 1 TAB PO DAILY for 30 Days, #30 TAB 0 Refills Prov:TING LOU MD 12/21/24 Reported Medications Thiamine HCl (Vitamin B-1) 100 Mg Tablet, 1 TAB PO DAILY for 30 Days, #30 TAB 0 Refills 12/15/24 Multivitamin with Minerals (Daily Vitamin Formula-Minerals) 1 Each Tablet, 1 TAB PO DAILY for 30 Days, #30 TAB 0 Refills 12/15/24 Discontinued Reported Medications Acetaminophen (Acetaminophen) 500 Mg Tablet, 1 TAB PO Q6HPRN PRN for pain or fever for 15 Days, #60 TAB 0 Refills 12/15/24 Na Phos,M-B/Na Phos,Di-Ba (Fleet Enema) 19 Gram-7 Gram/118 Ml Enema, 133 ML RC q24 for constipation, ENEMA 12/15/24 Potassium Chloride (Potassium Chloride) 20 Meq/15 Ml Liquid, 15 ML PO BID for low potassium for 30 Days, #473 ML 0 Refills 12/15/24 [glycolax] No Conflict Check, 17 GM PO for constipation 12/15/24 Ondansetron HCl (Zofran) 4 Mg/2 Ml Inj, 4 MG PO q6 for nausea/vomiting, ML 12/15/24 Clotrimazole (Clotrimazole) 1 % Cream..g., 1 APPL TP DAILY for toenails for 7 Days, #15 GM 0 Refills apply to affected area(s) 12/15/24 Omeprazole (Omeprazole) 20 Mg Capsule.dr, 1 CAP PO DAILY for 30 Days, #30 CAP 0 Refills 12/15/24 Simethicone (Simethicone) 80 Mg Tab.chew, 1 TAB PO TID PRN for prn for 6 Days, #20 TAB 0 Refills 12/15/24 Carvedilol (Carvedilol) 3.125 Mg Tablet, 1 TAB PO BID for 30 Days, #60 TAB 0 Refills 12/15/24 Discontinued Scripts Lactulose (Lactulose) 20 Gram Packet, 20 GM PO TID for 30 Days, #30 PKT Prov:TING LOU MD 12/31/24 Midodrine HCl (Midodrine HCl) 10 Mg Tablet, 1.5 TAB PO TID for 30 Days, #90 TAB 0 Refills Prov:TING LOU MD 12/21/24 Lactulose (Lactulose) 10 Gram/15 Ml Solution, 30 ML PO BID for constipation, #500 ML 0 Refills Prov:TING LOU MD 12/21/24 Continued Medications: Furosemide (Furosemide) 40 Mg Tablet 1 TAB PO DAILY for 30 Days, #30 TAB 0 Refills Lactulose (Lactulose) 10 Gram/15 Ml Solution 30 ML PO BID for constipation, #500 ML 1 Refill Midodrine HCl (Midodrine HCl) 5 Mg Tablet 1 TAB PO TID for 30 Days, #90 TAB 0 Refills Multivitamin with Minerals (Daily Vitamin Formula-Minerals) 1 Each Tablet 1 TAB PO DAILY for 30 Days, #30 TAB 0 Refills Spironolactone (Spironolactone) 100 Mg Tablet 1 TAB PO DAILY for 30 Days, #30 TAB 0 Refills Thiamine HCl (Vitamin B-1) 100 Mg Tablet 1 TAB PO DAILY for 30 Days, #30 TAB 0 Refills Time spent arranging discharge: 31-60 minutes ATTESTATION BY PHYSICIAN I have seen and examined the patient. I reviewed the documentation, medical decision making, and treatment plan as noted by the mid-level provider above. I agree with the findings and plan of care. Robert Villafana IV, MD, [facility] Jan 25, 2025 09:38
--- NOTE | 2025-01-25 10:55 | NUR ---
DCP:HOME Pt was recently DC on 01/18/25 from [facility]. Pt lives at home with some roommates. pt has a cane and wheelchair that he uses at home. Pt's friend Violeta Reece assist with home management and meals. PCP is Miko Alfaro and uses [facility] for any RX needs. At DC pt will want to go home and family can assist with transportation.
[2025-01-25 11:35] VITALS: BP 129/82; PULSE 113; RESP 18; TEMP 98.3
--- NOTE | 2025-01-25 14:08 | PN ---
GASTROENTEROLOGY PROGRESS NOTE Date of Visit: Jan 25, 2025 Time of Visit: 14:08 Events / Notes: [ ] Review of Systems: CONSTITUTIONAL: No malaise or change in sensation of wellbeing. ENMT: No rhinorrhea, otorrhea, sinus pain, ear ache. CARDIOVASCULAR: No angina, palpitations, orthopnea or paroxysmal dyspnea. RESPIRATORY: No SOB. GASTROINTESTINAL: No abdominal pain, nausea, vomiting, diarrhea, hematemesis, melena or change in the patient's habitual bowel movements consistency/number. GENITOURINARY: No dysuria, hematuria or change in bladder continence. MUSCULOSKELETAL: No new muscle pain or decrease in muscular strength. No new joint swelling, redness or tenderness. SKIN: No new rash. Physical Exam: GEN: Awake, alert, oriented in person, time and place, and in no acute distress. HEENT: No sinus tenderness. Tympanic membranes were not examined. No rhinorrhea. Oral pharyngeal mucosa is pink, moist and within normal limits. Neck is supple with no cervical lymphadenopathy, thyromegaly or JVD. CHEST: Inspection, palpation and percussion of the chest were unremarkable. Lung auscultation revealed normal breath sounds bilaterally. CARDIAC: PMI is within normal limits. Heart sounds are regular. Normal S1, S2. No gallop or murmur. ABD: Soft, non-tender and not distended. No peritoneal signs on palpation. No organomegaly. Normal bowel sounds. EXT: No cyanosis or clubbing. No edema. SKIN: Intact. No rashes. JOINTS: No evidence of synovitis or acute arthritis. NEURO: Alert and oriented to name, place and person. Cranial nerve examination is unremarkable. No focal motor deficits. Normal speech. Gait is normal. Strength is normal. Vital Signs (last 8hr) Date Time Temp Pulse Resp B/P (MAP) Pulse Ox O2 Delivery O2 Flow Rate FiO2 01/25/25 11:35 98.2 113 18 129/82 100 Room Air 01/25/25 08:37 99 Room Air* 0 21 01/25/25 07:57 98.1 102 18 120/79 99 Room Air Laboratory: [ ] Laboratory: Test 01/25/25 05:41 01/24/25 10:11 01/24/25 10:05 Range/Units White Blood Count 7.2 4.8-10.8 K/uL Red Blood Count 2.36 L 4.50-6.20 MIL/uL Hemoglobin 8.2 L 14.0-18.0 g/dL Hematocrit 23.5 L 42-54 % Mean Corpuscular Volume 99.6 H 79-99 fL Mean Corpuscular Hemoglobin 34.7 H 27.0-33.0 pg Mean Corpuscular Hemoglobin Concent 34.9 32.0-36.0 g/dL Red Cell Distribution Width 18.8 H 11.0-15.5 % Platelet Count 127 L 130-400 K/uL Mean Platelet Volume 8.2 7.5-10.5 fL Immature Granulocyte % (Auto) 0.4 0-1 % Neutrophils (%) (Auto) 67.1 40.0-77.0 % Lymphocytes (%) (Auto) 20.0 L 21.0-51.0 % Monocytes (%) (Auto) 9.6 3.0-13.0 % Eosinophils (%) (Auto) 2.5 0.0-8.0 % Basophils (%) (Auto) 0.4 0.0-5.0 % Neutrophils # (Auto) 4.8 1.8-7.7 K/uL Lymphocytes # (Auto) 1.4 1.0-4.8 K/uL Monocytes # (Auto) 0.7 0.1-1.0 K/uL Eosinophils # (Auto) 0.18 0.00-0.70 K/uL Basophils # (Auto) 0.03 0.00-0.20 K/uL Absolute Immature Granulocyte (auto 0.03 0-1 K/uL Nucleated Red Blood Cells 0.0 0.0-0.19 % Sodium Level 131 L 136-145 mmol/L Potassium Level 4.4 3.5-5.1 mmol/L Chloride Level 102 101-111 mmol/L Carbon Dioxide Level 23 21-32 mmol/L Blood Urea Nitrogen 16 7-18 mg/dL Creatinine 0.8 0.5-1.3 mg/dL Glomerular Filtration Rate Calc 106 >90 mL/min Random Glucose 88 70-105 mg/dL Total Calcium 7.2 L 8.5-10.1 mg/dL Magnesium Level 1.60 L 1.80-2.40 mg/dL Total Bilirubin 1.2 H 0.2-1.0 mg/dL Aspartate Amino Transf (AST/SGOT) 34 10-37 U/L Alanine Aminotransferase (ALT/SGPT) 16 12-78 U/L Alkaline Phosphatase 338 H 50-136 U/L Total Protein 5.2 L 6.0-8.3 g/dL Albumin 1.6 L 3.5-5.0 g/dL Urine Color LIGHT-YELLOW YELLOW Urine Appearance CLEAR CLEAR Urine pH 6.0 5.0-8.0 Urine Specific Kyle 1.008 1.001-1.031 Urine Protein NEGATIVE NEGATIVE mg/dL Urine Glucose (UA) NEGATIVE NEGATIVE mg/dL Urine Ketones NEGATIVE NEGATIVE mg/dL Urine Occult Blood NEGATIVE NEGATIVE Urine Nitrate NEGATIVE NEGATIVE Urine Bilirubin NEGATIVE NEGATIVE mg/dL Urine Urobilinogen 0.2 0.2-1.0 mg/dL Urine Leukocyte Esterase NEGATIVE NEGATIVE Pattie/uL Urine Opiates Screen NEGATIVE NEGATIVE Urine Barbiturates Screen NEGATIVE NEGATIVE Urine Phencyclidine Screen NEGATIVE NEGATIVE Urine Amphetamines Screen NEGATIVE NEGATIVE Urine Benzodiazepines Screen NEGATIVE NEGATIVE Urine Cocaine Screen NEGATIVE NEGATIVE Urine Marijuana (THC) Screen NEGATIVE NEGATIVE Red Blood Cell Morphology See comments Prothrombin Time 13.5 H 9.6-11.6 SEC Prothromb Time International Ratio 1.31 H 0.85-1.15 Troponin I High Sensitivity 4 4-75 ng/L Current Medications Medications (Trade) Dose Ordered Sig/Rnoak Route PRN Reason Start Time Stop Time Status Last Admin Dose Admin Acetaminophen (TYLenol 325MG TAB) 650 mg Q6H PRN PO MILD PAIN (1-3) 01/24/25 12:30 02/23/25 12:29 01/25/25 13:36 650 MG Famotidine (Pepcid 20mg Tab) 20 mg BID PO 01/24/25 21:00 02/23/25 20:59 01/25/25 08:37 20 MG Furosemide (LASix 40MG TAB) 40 mg DAILY PO 01/25/25 09:00 02/24/25 08:59 01/25/25 08:37 40 MG Hydralazine HCl (APRESOLine 20MG INJ) 5 mg Q4H PRN IV ADMINISTER FOR SBP > 160 01/24/25 12:30 02/23/25 12:29 Lactulose (Constulose 20gm/ 30ml Udcup) 20 gm BID PRN PO CONSTIPATION 01/24/25 12:30 02/23/25 12:29 Magnesium Sulfate 50 ml @ 0 mls/hr PROTOCOL PRN IV low mag level 01/24/25 15:00 02/23/25 14:59 01/25/25 08:38 25 MLS/HR Midodrine (PROAMatine 5 MG TABLET) 5 mg TID PO 01/24/25 21:00 02/23/25 20:59 Ondansetron HCl (zoFRAN 4MG INJ) 4 mg Q6H PRN IVP NAUSEA/VOMITING 01/24/25 21:00 02/23/25 20:59 01/24/25 23:16 4 MG Pharmacy Profile Note (Lace Assessment) 1 each AD MISC 01/24/25 16:00 01/24/25 15:52 DC Potassium Chloride 100 ml @ 50 mls/hr AD PRN IV POTASSIUM PROTOCOL 01/24/25 15:00 02/23/25 14:59 Potassium Chloride 100 ml @ 100 mls/hr AD PRN IV POTASSIUM PROTOCOL 01/24/25 20:00 02/23/25 19:59 Potassium Chloride (K-Dur/Klor-Con 20meq) 20 meq AD PRN PO POTASSIUM PROTOCOL 01/24/25 20:00 02/23/25 19:59 01/25/25 03:16 20 MEQ Potassium Chloride (KCl 10% Elixir 20meq/15ml) 20 meq AD PRN PO POTASSIUM PROTOCOL 01/24/25 20:00 02/23/25 19:59 Spironolactone (Aldactone 25mg) 100 mg DAILY PO 01/25/25 09:00 02/24/25 08:59 01/25/25 08:37 100 MG Diagnostics / Radiology: [COPY/PASTE HERE IF NO REPORTS PLEASE DELETE SECTION] Assessment: [ ] Plan: [ ] EMELIA [facility] Jan 25, 2025 14:08
--- NOTE | 2025-01-25 14:40 | NUR ---
DISCHARGE PERIPHERAL IV REMOVED FOR DISCHARGE DISCHARGE EDUCATION AND INSTRUCTIONS PROVIDED TO PATIENT PATIENT AWARE TO KEEP FOLLOW UP APPOINTMENT WITH GI PATIENT AWARE TO CONTINUE TAKING HOME MEDICATIONS PRESCRIBED BY MD ALL QUESTIONS ANSWERED.
== END 2025-01-25 14:46 | disposition home or self-care (01) ==
LOC: EDH 09:41 → INTOOBSV 12:15 → EDHIP 12:15 → 1MS 14:50
PROVIDERS: ADMIT Hospitalist; ATTEND Hospitalist
DX: J90 Pleural effusion, not elsewhere classified (principal); E87.1 Hypo-osmolality and hyponatremia; K70.31 Alcoholic cirrhosis of liver with ascites; D64.9 Anemia, unspecified; I10 Essential (primary) hypertension; E87.6 Hypokalemia; K70.30 Alcoholic cirrhosis of liver without ascites; Z79.899 Other long term (current) drug therapy
CPT/HCPCS: 96375; 99285; 84484; 80048; 80305; 85025 ×2; 85610; 81003; 36415 ×2; 71045; 76604; 93005; 96365; 96366; 83735; 80053; J2405; G0378 ×5; J3475

== ENCOUNTER 2025-02-02 05:41 | Inpatient (IN) | payer OTHER ==
[~2025-02-02] VITALS: Ht 162.6 cm; Wt 59.9 kg
[2025-02-02 06:13] LABS: IMMATURE GRANULOCYTE ABSOLUTE 0.06 K/uL (0-1); NUCLEATED RED BLOOD CELLS 0.0 % (0.0-0.19); PLATELET COUNT (AUTO) 191 K/uL (130-400); RED BLOOD CELL COUNT(AUTO) 2.38 MIL/uL (4.50-6.20); RED CELL DISTRIBUTION WIDTH 16.7 % (11.0-15.5); WHITE BLOOD COUNT (AUTO) 10.7 K/uL (4.8-10.8)
--- NOTE | 2025-02-02 06:13 | ERN ---
ED Note History of Present Illness Stated Complaint: ABDOMINAL PAIN, NAUSEA Chief Complaint: Abdominal Pain Time Seen by MD: 05:49 Dictation: This is a very pleasant 54-year-old male with known history of alcoholic cirrhosis was recently admitted to the hospital on 01/24 and discharged on 01/25/2025. Apparently after the discharge he did undergo thoracentesis for pleural effusion as well as paracentesis. Patient stated that for the past 2-3 days he began experiencing abdominal pain progressive shortness of breath. He also reported nausea subjective fevers. No hemoptysis no vomitings or diarrhea. He stated that since his diagnosis a few months ago he has not had any alcohol Temperature 99.3 pulse 110 respirations 26 blood pressure 123/80 with a pulse oximetry of 100% on room air His chronic medical problems include alcoholic cirrhosis of the liver, recurrent ascites status post paracentesis, portal gastropathy, hyponatremia and pleural effusion Allergies: Coded Allergies: NSAIDS (Non-Steroidal Anti-Inflamma (Unverified Allergy, Intermediate, 06/09/24) aspirin (Unverified Allergy, Intermediate, 06/09/24) ibuprofen (Unverified Allergy, Intermediate, 06/09/24) Home Meds Active Scripts Midodrine HCl (Midodrine HCl) 5 Mg Tablet, 1 TAB PO TID for 30 Days, #90 TAB 0 Refills Prov:MICHOACANO ORTIZ MD 01/18/25 Lactulose (Lactulose) 10 Gram/15 Ml Solution, 30 ML PO BID for constipation, #500 ML 1 Refill Prov:RADHA MEDINA 01/10/25 Spironolactone (Spironolactone) 100 Mg Tablet, 1 TAB PO DAILY for 30 Days, #30 TAB 0 Refills Prov:TING LOU MD 12/21/24 Furosemide (Furosemide) 40 Mg Tablet, 1 TAB PO DAILY for 30 Days, #30 TAB 0 Refills Prov:TING LOU MD 12/21/24 Reported Medications Thiamine HCl (Vitamin B-1) 100 Mg Tablet, 1 TAB PO DAILY for 30 Days, #30 TAB 0 Refills 12/15/24 Multivitamin with Minerals (Daily Vitamin Formula-Minerals) 1 Each Tablet, 1 TAB PO DAILY for 30 Days, #30 TAB 0 Refills 12/15/24 Past Medical History Past Medical History: Hypertension, Other Additional Past Medical Hx: LIVER CIRRHOSIS Surgical History: None Family History: Negative Social History: ETOH (Quit 3 months ago) RN Note Reviewed/Agreed w/PFSH: Yes Review of System Dictation Constitutional: Negative for fever,chills, and weight loss Eyes: Negative for injury, pain,redness, and discharge ENT: Negative for injury,pain or swelling Cardiovascular: Negative for chest pain, palpitations, and edema Respiratory: Positive for shortness of breath, cough, and wheezing, Abdomen/GI: Positive for abdominal pain, increasing distention, nausea, denied vomiting, diarrhea, and constipation Back: Negative for injury and pain : Negative for injury, bleeding and discharge MS/Extremity: Negative for injury and deformity Skin: Negative for rash, and discoloration Neuro: Negative for headache, weakness, numbness, tingling, and seizure Psych: Negative for suicide ideation, homicidal ideation, and hallucinations Initial Vital Sign VS Vital Signs Date Time Temp Pulse Resp B/P (MAP) Pulse Ox O2 Delivery O2 Flow Rate FiO2 02/02/25 06:03 99.3 110 26 123/80 100 Room Air* 0 21 Physical Exam Dictation General: awake, alert, NAD ill-appearing chronically mildly short of breath during the conversation Head/Face: Normocephalic, atraumatic Eyes: PERRL, EOMI, vision at baseline, pallor, ENT: oral cavity clear, TMs clear, no signs of infection Neck: Trachea midline, supple, no nuchal rigidity Cardiovascular: RRR, normal S1/S2, No MRGs, no JVD Respiratory: Decreased breath sounds at the right base more than the left, no respiratory distress, No rales or wheezes Abdomen: Soft, distended, tender to palpation, normal bowel sounds, no guarding or rebound. Unable to discern any hepatomegaly. Skin: Warm, dry, normal turgor, no rash MS/Extremity: Pulses equal, no cyanosis, neurovascular intact, FROM Neuro: COAx4, GCS 15, strength 5/5, CN 2-12 intact, normal cerebellar exam, normal gait, Psych: Normal behavior, mood, and affect normal Extremities-2+ pitting edema without any palpable cords, Homans sign is negative Results (Laboratory/Radiology) Laboratory/Radiology Laboratory Tests Test 02/02/25 06:00 White Blood Count 10.7 K/uL (4.8-10.8) Red Blood Count 2.38 MIL/uL (4.50-6.20) L Hemoglobin 8.2 g/dL (14.0-18.0) L Hematocrit 25.0 % (42-54) L Mean Corpuscular Volume 105.0 fL (79-99) H Mean Corpuscular Hemoglobin 34.5 pg (27.0-33.0) H Mean Corpuscular Hemoglobin Concent 32.8 g/dL (32.0-36.0) Red Cell Distribution Width 16.7 % (11.0-15.5) H Platelet Count 191 K/uL (130-400) Mean Platelet Volume 8.2 fL (7.5-10.5) Immature Granulocyte % (Auto) 0.6 % (0-1) Neutrophils (%) (Auto) 73.4 % (40.0-77.0) Lymphocytes (%) (Auto) 14.8 % (21.0-51.0) L Monocytes (%) (Auto) 8.9 % (3.0-13.0) Eosinophils (%) (Auto) 1.9 % (0.0-8.0) Basophils (%) (Auto) 0.4 % (0.0-5.0) Neutrophils # (Auto) 7.9 K/uL (1.8-7.7) H Lymphocytes # (Auto) 1.6 K/uL (1.0-4.8) Monocytes # (Auto) 1.0 K/uL (0.1-1.0) Eosinophils # (Auto) 0.20 K/uL (0.00-0.70) Basophils # (Auto) 0.04 K/uL (0.00-0.20) Absolute Immature Granulocyte (auto 0.06 K/uL (0-1) Nucleated Red Blood Cells 0.0 % (0.0-0.19) Sodium Level 129 mmol/L (136-145) L Potassium Level 4.0 mmol/L (3.5-5.1) Chloride Level 98 mmol/L (101-111) L Carbon Dioxide Level 26 mmol/L (21-32) Blood Urea Nitrogen 9 mg/dL (7-18) Creatinine 0.7 mg/dL (0.5-1.3) Glomerular Filtration Rate Calc 111 mL/min (>90) Random Glucose 120 mg/dL (70-105) H Lactic Acid Level 1.8 mmol/L (0.8-2.5) Total Calcium 7.3 mg/dL (8.5-10.1) L Ammonia 42 umol/L (11-32) H Labs Reviewed?: Yes ED Course ED Course Orders Procedure Category Date Status Time Ammonia LAB 02/02/25 Complete 05:51 Cbc With Differential LAB 02/02/25 In Process 05:51 Basic Metabolic Panel LAB 02/02/25 Complete 05:51 Urinalysis Profile LAB 02/02/25 Logged 05:51 Lactic Acid LAB 02/02/25 Complete 05:51 Chest 1vw RAD 02/02/25 Taken 05:51 Blood Cult RAMESH 02/02/25 In Process 06:00 Albumin (Human) 25% PHA 02/02/25 In Process (Albumin (Human) 25% 06:00 Ceftriaxone 1g Vial PHA 02/02/25 Complete (Rocephine 1g Inj) 06:00 Vancomycin 1g/250ml PHA 02/02/25 Complete Kit (Vancomycin 1g/2 06:00 Edm Admit Bridge Order ADM 02/02/25 Transmitted 06:50 Current Medications Medications (Trade) Dose Ordered Sig/Ronak Route PRN Reason Start Time Stop Time Status Last Admin Dose Admin Albumin Human 50 ml @ 0 mls/hr AD ONCE IV 02/02/25 06:00 02/02/25 06:17 DC 02/02/25 06:23 Ceftriaxone Sodium (ROCEphine 1G INJ) 1 gm ONCE ONCE IVPB 02/02/25 06:00 02/02/25 06:14 DC 02/02/25 06:19 Vancomycin HCl (Vancomycin 1g/ 250ml Kit) 1 gm ONCE ONCE IV 02/02/25 06:00 02/02/25 06:14 DC 02/02/25 06:30 Vital Signs Date Time Temp Pulse Resp B/P (MAP) Pulse Ox O2 Delivery O2 Flow Rate FiO2 02/02/25 06:33 99.3 108 20 125/79 100 Nasal Cannula* 2 28 02/02/25 06:04 99.3 113 24 123/80 100 Room Air 0 02/02/25 06:03 99.3 110 26 123/80 100 Room Air* 0 21 Medical Decision Making MDM Differential diagnosis: Sepsis-from pneumonia, possible secondary bacterial peritonitis, UTI, pancreatitis, GI bleed This is a very pleasant 54-year-old male with known history of alcoholic cirrhosis was recently admitted to the hospital on 01/24 and discharged on 01/25/2025. Apparently after the discharge he did undergo thoracentesis for pleural effusion as well as paracentesis. Patient stated that for the past 2-3 days he began experiencing abdominal pain progressive shortness of breath. He also reported nausea subjective fevers. No hemoptysis no vomitings or diarrhea. He stated that since his diagnosis a few months ago he has not had any alcohol His chronic medical problems include alcoholic cirrhosis of the liver, recurrent ascites status post paracentesis, portal gastropathy, hyponatremia and pleural effusion 6:30 a.m. labs reviewed CBC showed a white count of 10.7 hemoglobin 8.2 platelets 191. BNP 7 is significant for a sodium of 129 chloride 98 glucose 120. Lactate 1.8 ammonia 42 Chest x-ray showed moderate to large right pleural effusion reaccumulation Patient needs readmission for perhaps repeat thoracentesis as well as paracentesis. Other options to consider would be tips. Renal function is still preserved, patient is agree Albumin infusion requested. After kelly cultures we will give empiric antibiotic Rocephin as well as 1 dose of vancomycin to cover secondary bacterial peritonitis. Patient will be admitted to hospitalist service for further management, Antonina mid-level provider for [facility] hospitalist group accepted the patient for admission Rationale: Tests considered and ordered secondary to shared decision making include: labs, ECG and radiology Previous outside records reviewed: Old ER visits. Risk of complication and/or morbidity or mortality of patient management: None Medications-Per medication reconciliation Need for hospitalization: Patient does meet criteria for hospitalization. Need for emergency major/minor surgery: No There are no social concerns with this patient. Prescription drug management Prescriptions will include symptomatic care Patient's prior external medical records from other ER visits were reviewed by me as indicated. Prior testing and results from previous visits were reviewed. Prior tests were taken into account with medical decision making and resource utilization, independent historian/historians were used to obtain complete medical history. I independently interpreted the test that were performed, results were reviewed by me and considered findings on radiology if ordered. Medical management and examination interpretation discussions were had by me with other qualified healthcare professionals as indicated for the patient's care. Problem List Problem List: (1) Severe sepsis (2) Alcoholic cirrhosis of liver with ascites (3) Pleural effusion (4) Portal hypertensive gastropathy (5) Bacterial peritonitis DX & DISP Disposition: Inpatient Decision to Admit Time: 06:10 Departure Impression: Primary Impression: Severe sepsis Additional Impressions: Alcoholic cirrhosis of liver with ascites, SOB (shortness of breath), Pleural effusion, Bacterial peritonitis Condition: Stable Additional Instructions: Patient was informed of all the diagnostic labs and procedures conducted in the emergency room today and demonstrated understanding of the results. I personally reviewed and interpreted all the diagnostic exams performed in the ER today. The patient will be admitted to the hospital for further treatment and evaluation. Disposition-admit to facility Condition-stable/guarded Course-uncertain at this time Pain status-decreased Assessment-exam unchanged Admission Certification- I certify that the patients status is appropriate and is based on my best clinical judgment and the patient's condition as documented in the medical records Referrals: JOLLY BOOGIE MD (PCP) MENDEZ GRIFFITHS MD Feb 02, 2025 06:13
[2025-02-02 06:23] LABS: CREATININE 0.7 mg/dL (0.5-1.3); GLOMERULAR FILTR. RATE CALC 111.0 mL/min (>90); GLUCOSE,RANDOM 120.0 mg/dL (70-105); SODIUM SERUM 129.0 mmol/L (136-145); UREA NITROGEN, BLOOD 9.0 mg/dL (7-18)
[2025-02-02] MEDS: ALBUMIN (HUMAN) 25% 50 ML IV ONE (06:23)
[2025-02-02] MEDS: VANCOMYCIN KIT 1 GM/250 ML IV.KIT IV ONE (06:30)
[2025-02-02] MEDS ORDERED: GLUCAGON 1MG KIT 1 MG ML IM PRN (07:00)
[2025-02-02] MEDS ORDERED: DEXTROSE 50%-WATER 50 ML DISP.SYRIN IV PRN (07:00)
[2025-02-02] MEDS ORDERED: MAG/ALUM/SIMETH 30 ML UDCUP PO PRN (07:00)
[2025-02-02] MEDS ORDERED: FAMOTIDINE 20MG VIAL IV PRN (07:00)
[2025-02-02] MEDS ORDERED: MAGNESIUM 2GM PREMIX 50ML 50 ML IV PRN (07:00)
[2025-02-02] MEDS ORDERED: NITROGLYCERIN 0.4 MG SL TAB SL PRN (07:00)
[2025-02-02] MEDS ORDERED: LACTULOSE 20 GM/30 ML UDCUP PO PRN (07:00)
--- NOTE | 2025-02-02 07:10 | HMCIMG ---
EXAM: CR Chest, single view. CLINICAL HISTORY: Cirrhosis of the Liver h/o pleural effusions (Hx) / cirrhosis of the Liver h/o pleural effusions COMPARISON: Prior chest radiograph dated January 24, 2025. FINDINGS: Moderate right-sided pleural effusion with adjacent lung atelectasis. No evidence of pneumothorax.. The cardiomediastinal silhouette is within normal limits. No acute osseous abnormality. IMPRESSION: Moderate right-sided pleural effusion with adjacent lung atelectasis. No evidence of pneumothorax. Compared to the prior study, there is mild interval progression of the right-sided pleural effusion. /[place]ler
[2025-02-02 07:40] LABS: SARS-CoV-2, RNA, NAAT NEGATIVE SARS CoV-2 (NEGATIVE)
[2025-02-02 07:43] LABS: INFLUENZA TYPE A Negative For Type A (NEGATIVE); INFLUENZA TYPE B Negative For Type B (NEGATIVE)
[2025-02-02 08:38] LABS: APPEARANCE,URINE CLEAR (CLEAR); GLUCOSE, URINE (UA) NEGATIVE (NEGATIVE); LEUKOCYTE ESTERASE ,URINE NEGATIVE Leu/uL (NEGATIVE); NITRATE,URINE NEGATIVE (NEGATIVE); OCCULT BLOOD,URINE NEGATIVE (NEGATIVE)
[2025-02-02 08:41] LABS: AMPHET/METH SCREEN,URINE NEGATIVE (NEGATIVE); BARBITURATE SCREEN, URINE NEGATIVE (NEGATIVE); CANNABINOID SCREEN,URINE NEGATIVE (NEGATIVE); COCAINE SCREEN,URINE NEGATIVE (NEGATIVE)
[2025-02-02] MEDS: FAMOTIDINE 20MG VIAL IV SCH (08:56)
[2025-02-02 09:12] LABS: SQUAMOUS EPITHELIAL CELL,UR Rare /HPF (0-2)
[2025-02-02 09:42] VITALS: O2SAT 100
--- NOTE | 2025-02-02 10:17 | NUR ---
DCP:HOME Pt has been in and out 3 times in January with the most recent DC on 01/25. Pt states that home situation remains the same. Pt lives with roommates and uses a cane and wheelchair at home. One of the roommates, Violeta Reece assist him with home management and meals. PCP is Dr. Miko Alfaro and uses [facility] for any RX needs. AT DC pt will want to go home and family can assist with transportation.
[2025-02-02 12:56] VITALS: BP 110/75; PULSE 106; RESP 16; TEMP 99.8
--- NOTE | 2025-02-02 13:25 | HMCSR ---
APPROVED REPORT EXAM: Two-dimensional and M-mode echocardiogram with Doppler and color Doppler. INDICATION ICD: Congestive heart failure 2D Dimensions RVDd 4.1 cm LVEF(%) 66.9 (>50%) LVED Vol(simp.) 89.0 mL IVSd 1.1 (0.7-1.1cm) FS(%) 37 % LVES Vol(simp.) 30.0 mL LVDd 4.6 (3.8-5.6cm) LA (2D) 4.2 (1.6-4.0cm) LVEF(%, simp.) 66 % PWd 1.1 (0.7-1.1cm) Ao Root(2D) 2.9 (2.0-3.7cm) LA ESV INDEX (BP) 30.15 mL/m2 IVSs 1.5 cm LVOT diam 2.2 (1.8-2.4cm) LVDs 2.9 (2.5-4.0cm) PWs 1.8 cm Deformation Strain Apical 4 -18.4 % Apical 2 -17.6 % Apical 3 -19.7 % Global Strain -18.5 % M-Mode Dimensions EPSS 0.3 cm LA (MM) 4.3 (1.6-4.0cm) Ao Root(MM) 2.4 (2.0-3.7cm) Aortic Valve AoV Vmax 1.8 m/s Ao Peak GR 12.7 mmHg LVOT Vmax 1.3 m/s AoV VTI 0.3 m Ao Mean GR 6.7 mmHg LVOT VTI 0.21 m KIRA (VMAX) 2.67 cm2 KIRA (VTI) 2.7 cm2 Mitral Valve MV E Vmax 75.3 cm/s DECEL Time 114 ms MV A Vmax 57.5 cm/s P 1/2 T 39 ms E/A ratio 1.3 MVA (PHT) 5.7 cm2 TDI E/E' Medial 10.2 E/E' Lateral 9.4 Medial E' Peak V 7.39 cm/s Lateral E' Peak V 8.02 cm/s Pulmonary Valve PV Vmax 1.1 m/s PV Mean GR 2.8 mmHg PV Peak GR 4.8 mmHg Tricuspid Valve TR Vmax 1.8 m/s RAP (EST) 3 mmHg RVSP 15.4 mmHg TR Peak GR 12.4 mmHg Left Ventricle The left ventricle is normal size. GLS -19.0% There is normal LV segmental wall motion. There is mild left ventricular wall thickness. The LVEF is > 65%. The left ventricular diastolic function is normal. Right Ventricle The right ventricle is borderline dilated. The right ventricular systolic function is normal. Atria The left atrium size is normal. Evidence of PFO by color Doppler suggesting left to right shunt. Qp/Qs 1.45 The right atrium size is normal. Aortic Valve Aortic valve is trileaflet and opens well. Nodular calcification noted on RC/NCC leaflets. No aortic regurgitation is present. There is no aortic valvular stenosis. Mitral Valve The mitral valve is normal in structure. There is no mitral valve regurgitation noted. There is no mitral valve stenosis. Tricuspid Valve The tricuspid valve is normal in structure. There is trace of tricuspid valve regurgitation noted. Pulmonic Valve The pulmonary valve is normal in structure. There is no pulmonic valvular regurgitation. Great Vessels The aortic root is normal in size. The IVC is normal in size and collapses >50% with inspiration. Pericardium There is no pericardial effusion. Ascites is present. Other Information Quality : Adequate Conclusion The LVEF is > 65%. GLS -19.0% There is normal LV segmental wall motion. Aortic valve is trileaflet and opens well. Nodular calcification noted on RC/NCC leaflets. Evidence of PFO by color Doppler suggesting left to right shunt. Qp/Qs 1.45
--- NOTE | 2025-02-02 13:44 | CONS ---
[facility] CONSULTATION NOTE Date Patient Seen: Feb 02, 2025 Time of Visit: 13:44 Supervising Physician: Dr. Persaud Reason for Consultation: Bilateral pleural effusions Primary Care Physician: [ ] Outpatient Specialists: [ ] Inpatient Consults: [ ] PROBLEM LIST: Acute sepsis POA Large pleural effusion per chest x-ray and CT chest POA Alcoholic liver cirrhosis s/p multiple paracentesis POA Electrolyte imbalance hyponatremia Na 129 POA Multifactorial anemia POA Leukocytosis WBC 10.7 POA Cough POA HPI: Patient is a 54-year-old male with a past medical history significant for alcoholic liver cirrhosis and associated ascites. Patient is known to our services with the associated pleural effusions. On this admission, pulmonary Services has been consulted for large right pleural effusion. Upon evaluation patient is currently on room air, denies any chest pain states that he feels extremely distended in his abdominal area, he is nontender to palpation. At this time there is a paracentesis scheduled, we recommend that the patient proceed with paracentesis and then we will evaluate for possible thoracentesis if indicated on this admission. Patient updated with the current treatment plan, currently on vancomycin, we will add Zosyn. We will continue to follow the patient closely. Plan Pending paracentesis We will evaluate for thoracentesis following paracentesis Patient remains on room air Continue vancomycin and Zosyn PAST MEDICAL HX: see above PAST SURGICAL HX: noncontributory SOCIAL HISTORY: No tobacco, ETOH, or illicit drug use Coded Allergies: NSAIDS (Non-Steroidal Anti-Inflamma (Unverified Allergy, Intermediate, 06/09/24) aspirin (Unverified Allergy, Intermediate, 06/09/24) ibuprofen (Unverified Allergy, Intermediate, 06/09/24) REVIEW OF SYSTEMS: 12 point ROS reviewed with patient. Pertinent positives mentioned above. Otherwise negative. PHYSICAL EXAM: GENERAL: alert, weak, awake oriented x 3 HEENT: EOMI, Sclera non icteric, moist mucosa NECK: Supple, no JVD, trachea midline LUNGS: Clear breath sounds bilaterally. No wheezes HEART: Regular rate and rhythm. Normal S1 and S2, without murmurs ABD: Abdomen soft, nontender. Bowel sounds present EXT: No clubbing cyanosis or edema NEURO: Alert and oriented to person, follows commands Vital Signs (last 8hr) Date Time Temp Pulse Resp B/P (MAP) Pulse Ox O2 Delivery O2 Flow Rate FiO2 02/02/25 12:56 99.9 106 16 110/75 100 Room Air 02/02/25 09:42 100 Nasal Cannula* 2 28 02/02/25 09:25 98.4 106 18 111/65 100 Nasal Cannula* 2 28 02/02/25 07:50 98.4 116 18 122/71 100 Nasal Cannula* 2 28 02/02/25 06:33 99.3 108 20 125/79 100 Nasal Cannula* 2 28 02/02/25 06:04 99.3 113 24 123/80 100 Room Air 0 02/02/25 06:03 99.3 110 26 123/80 100 Room Air* 0 21 LABS: Hematology Labs: Test 02/02/25 06:00 Range/Units White Blood Count 10.7 4.8-10.8 K/uL Red Blood Count 2.38 L 4.50-6.20 MIL/uL Hemoglobin 8.2 L 14.0-18.0 g/dL Hematocrit 25.0 L 42-54 % Mean Corpuscular Volume 105.0 H 79-99 fL Mean Corpuscular Hemoglobin 34.5 H 27.0-33.0 pg Mean Corpuscular Hemoglobin Concent 32.8 32.0-36.0 g/dL Red Cell Distribution Width 16.7 H 11.0-15.5 % Platelet Count 191 130-400 K/uL Mean Platelet Volume 8.2 7.5-10.5 fL Immature Granulocyte % (Auto) 0.6 0-1 % Neutrophils (%) (Auto) 73.4 40.0-77.0 % Lymphocytes (%) (Auto) 14.8 L 21.0-51.0 % Monocytes (%) (Auto) 8.9 3.0-13.0 % Eosinophils (%) (Auto) 1.9 0.0-8.0 % Basophils (%) (Auto) 0.4 0.0-5.0 % Neutrophils # (Auto) 7.9 H 1.8-7.7 K/uL Lymphocytes # (Auto) 1.6 1.0-4.8 K/uL Monocytes # (Auto) 1.0 0.1-1.0 K/uL Eosinophils # (Auto) 0.20 0.00-0.70 K/uL Basophils # (Auto) 0.04 0.00-0.20 K/uL Absolute Immature Granulocyte (auto 0.06 0-1 K/uL Nucleated Red Blood Cells 0.0 0.0-0.19 % Red Blood Cell Morphology See comments Chemistry Labs: Test 02/02/25 10:58 02/02/25 06:00 Range/Units Whole Blood Glucose 105 70-110 MG/DL Sodium Level 129 L 136-145 mmol/L Potassium Level 4.0 3.5-5.1 mmol/L Chloride Level 98 L 101-111 mmol/L Carbon Dioxide Level 26 21-32 mmol/L Blood Urea Nitrogen 9 7-18 mg/dL Creatinine 0.7 0.5-1.3 mg/dL Glomerular Filtration Rate Calc 111 >90 mL/min Random Glucose 120 H 70-105 mg/dL Lactic Acid Level 1.8 0.8-2.5 mmol/L Total Calcium 7.3 L 8.5-10.1 mg/dL Ammonia 42 H 11-32 umol/L DIAGNOSTICS / RADIOLOGY RESULTS: [ ] PLAN NEURO: Minimize central acting medications as possible. Maintain fall precautions, adequate lighting during the day PULMONARY: Supplemental 02 as needed. Maintain aspiration precautions at all times CARDIOVASCULAR: Follow hemodynamics. Vital signs per facility protocol GI & NUTRITION: Continue with nutritional support. Continue stool softeners and laxatives as needed. KIDNEYS & ELECTROLYTES: Strict monitoring of intake, output and overall fluid balance. Avoid nephrotoxic medications to the extent possible. Medications to be dosed according to renal function. Monitor electrolytes and replace as needed ENDOCRINE: Maintain blood glucose between 100-180 at all times. Hypoglycemia protocol in place INFECTIOUS DISEASE: Trend temperature, WBC and procalcitonin level Follow cultures, deescalate antibiotics as soon as possible. Panculture if new onset fever ONCOLOGY/HEMATOLOGY/COAGULATION: Monitor for s/s of bleeding Monitor hemoglobin, coagulation studies as needed SKIN: Pressure ulcer prevention per facility protocol Specialty mattress ORTHO/REHAB: Continue PT/OT Prophylaxis: Continue GI and DVT prophylaxis Code Status: Full Resuscitation Disposition: TBD Other: Total patient care time exceeds 35 minutes excluding all procedures. GLENN ATKINS PAC Feb 02, 2025 13:44
[2025-02-02] MEDS: ZOSYN 3.375GM+NS 50ML 50 ML IV SCH (13:54)
--- NOTE | 2025-02-02 15:22 | HMCIMG ---
CT CHEST W/O CONTRAST REASON: pl effusion COMPARISON: None. TECHNIQUE: Multiple sequential axial images of the chest were obtained from the thoracic inlet through the upper pole of the kidneys without intravenous contrast administration. FINDINGS: Heart size is within upper limits of normal. There is coronary calcification suggesting of coronary artery disease. No mediastinal or axillary lymphadenopathy identified. There is no pericardial effusion. There is a large right-sided pleural effusion which is causing atelectasis of the right lower lung. Lungs are clear. There is no consolidation or pneumothorax. Trachea and main bronchi are unremarkable. No chest wall abnormality identified. There is a large ascites with a TIPS shunt in place. The liver appears to be small with cirrhosis. IMPRESSION: Large right-sided pleural effusion which is causing atelectasis of the right lower lung. There is a large ascites seen in the abdomen. There is a TIPS shunt in place. CT was performed with one or more following dose reduction techniques: automated exposure control, adjustment of the mA and kv according to patient's size, or use of a iterative reconstruction technique.
--- NOTE | 2025-02-02 15:42 | HP ---
[facility] HISTORY AND PHYSICAL Date of Service: Feb 02, 2025 Time of Service: 15:29 PCP: Dr. Miko Alfaro Admitting: Dr Richardson, Allergies: NSAIDs HISTORY OF PRESENT ILLNESS: [ Patient is54 years old male with a past medical history of alcoholic cirrhosis of liver, multiple recurrent ascites s/p paracentesis, portal gastropathy, hyponatremia and pleural effusion who came to emergency department with a complaint of shortness of breaths, vomiting, progressive cough for the past three days. Patient stated that recently he was discharged on 01/25/2025 where he was diagnosed with moderate to large pleural effusion] Most recent vital signs temperature 99.9 pulse 106 respirations 16 blood pressure 110/75 patient is on room air satting 100%. WBC 10.7 Hemoglobin 8.2 hematocrit 25platelets 191 , urinalysis negative. Influenza A negative influenza B negative COVID negative. Toxicology negative. Sodium 129 potassium 4.0 CO2 26 BUN nine creatinine 0.7 [id number] lactic 1.8 ammonia 42. Chest x-ray showed moderate right pleural effusion with lung atelectasis no evidence of pneumothorax. Chest CT showed large right-sided pleural effusion which is causing atelectasis of the right lower lung. There is a tips shunt in place. 2D echo more than 65% left ventricle diastolic function is normal. We consulted dental equipment repairer for further evaluation/recommendation. Patient is pending thorac entesis on 02/02/2025. Patient will be admitted under hospitalist care for further evaluation/recommendation. REVIEW OF SYSTEMS CONSTITUTIONAL: Denies fevers, chills, or night sweats. No unintentional weight loss reported. NEUROLOGICAL: Denies headache, amaurosis fugax, motor weakness, sensory deficit, vertigo/spinning sensation, gait abnormalities, or tremors. ENT: No hearing loss, otalgia, otorrhea, rhinitis, rhinorrhea, hoarseness, or sore throat. CARDIOVASCULAR: Denies any exertional angina, dyspnea on exertion, orthopnea, paroxysmal nocturnal dyspnea, palpitations, life-threatening arrhythmias, claudication. PULMONARY: Denies any , cough, phlegm/sputum, hemoptysis, pleuritic chest pain. Complains of shortness of breaths SLEEP: Denies morning headaches, daytime somnolence or napping. Denies difficulty falling asleep, staying asleep, waking from sleep. Denies knowledge of snoring. GASTROINTESTINAL: Denies any type of dysphagia to either liquids or solids. Denies nausea, vomiting, pyrosis, early satiety, abdominal pain, diarrhea, constipation, or changes in stool consistency or caliber. Denies coffee-ground emesis, hematemesis, hematochezia, or melanotic stools. GENITOURINARY: Denies frequency, urgency, nocturia, hematuria or incontinence (Storage/Irritative symptoms.) Low urinary stream, straining to void, urinary intermittency or hesitancy, splitting of the voiding stream, terminal dribbling. ENDOCRINOLOGIC: Denies polyuria, polydipsia, polyphagia or heat/cold intolerances. HEMATOLOGIC: Denies thrombophilia/previous clots, or coagulopathy/bleeding disorders. ONCOLOGIC: Denies personal history of malignancy. DERMATOLOGIC: Denies rashes or pruritus. PSYCHIATRIC: Denies any suicidal or homicidal ideation. Denies hallucinations. PAST MEDICAL HISTORY: [ Hyperlipidemia, hypertension, cirrhosis of liver, pleural effusions ] PAST SURGICAL HISTORY: [ Denies any ] PAST SOCIAL HISTORY: [ Patient denies smoking. Patient drinks occasionally alcohol. Patient denies any drugs use ] FAMILY HISTORY: [ Patient lives at home alone. Patient is independent ] Coded Allergies: NSAIDS (Non-Steroidal Anti-Inflamma (Unverified Allergy, Intermediate, 06/09/24) aspirin (Unverified Allergy, Intermediate, 06/09/24) ibuprofen (Unverified Allergy, Intermediate, 06/09/24) PHYSICAL EXAM GENERAL APPEARANCE: The patient is awake, alert, and oriented, in no acute cardiopulmonary distress. NEUROLOGICAL: Cranial nerves II-XII grossly intact. Motor is 5/5 in bilateral upper and lower extremities proximal to distal. No sensory deficits. HEENT: Face is symmetric. Pupils are equal and reactive. Extraocular movements are intact. NECK: Supple. No JVD. No thyromegaly. No submental, submandibular, pre- /postauricular, occipital or supraclavicular lymphadenopathy. CHEST: Normal chest expansion. No Telemetry. LUNGS: Absence of any rales, rhonchi or any wheezing. CARDIOVASCULAR: Regular. S1 and S2 normal. No appreciable rubs, murmurs or gallops. ABDOMEN: Soft, nontender, and nondistended. There is no rebound, voluntary guarding, or rigidity. : Deferred. No [place]spin[place]. EXTREMITIES: Non-edematous and not cyanotic. No clubbing. Good capillary ref ill. SKIN: No skin breakdown. Vital Sign (Last 24 Hours) 02/02/25 02/02/25 09:42 12:56 Temp 99.9 Pulse 106 Resp 16 B/P (MAP) 110/75 Pulse Ox 100 O2 Delivery Room Air O2 Flow Rate 2 FiO2 28 LABS: Laboratory: Test 02/02/25 15:11 02/02/25 08:16 02/02/25 07:02 02/02/25 06:00 Range/Units Whole Blood Glucose 89 70-110 MG/DL Urine Color LIGHT-YELLOW YELLOW Urine Appearance CLEAR CLEAR Urine pH 6.5 5.0-8.0 Urine Specific Grover 1.008 1.001-1.031 Urine Protein NEGATIVE NEGATIVE mg/dL Urine Glucose (UA) NEGATIVE NEGATIVE mg/dL Urine Ketones NEGATIVE NEGATIVE mg/dL Urine Occult Blood NEGATIVE NEGATIVE Urine Nitrate NEGATIVE NEGATIVE Urine Bilirubin NEGATIVE NEGATIVE mg/dL Urine Urobilinogen 0.2 0.2-1.0 mg/dL Urine Leukocyte Esterase NEGATIVE NEGATIVE Pattie/uL Urine RBC None Seen 0-1 /HPF Urine WBC 0-1 0-1 /HPF Urine Squamous Epithelial Cells Rare 0-2 /HPF Urine Bacteria None Seen None Seen /HPF Urine Opiates Screen NEGATIVE NEGATIVE Urine Barbiturates Screen NEGATIVE NEGATIVE Urine Phencyclidine Screen NEGATIVE NEGATIVE Urine Amphetamines Screen NEGATIVE NEGATIVE Urine Benzodiazepines Screen NEGATIVE NEGATIVE Urine Cocaine Screen NEGATIVE NEGATIVE Urine Marijuana (THC) Screen NEGATIVE NEGATIVE Influenza Type A Antigen Negative For Type A NEGATIVE Influenza Type B Antigen Negative For Type B NEGATIVE SARS-CoV-2, RNA, NAAT NEGATIVE SARS CoV-2 NEGATIVE White Blood Count 10.7 4.8-10.8 K/uL Red Blood Count 2.38 L 4.50-6.20 MIL/uL Hemoglobin 8.2 L 14.0-18.0 g/dL Hematocrit 25.0 L 42-54 % Mean Corpuscular Volume 105.0 H 79-99 fL Mean Corpuscular Hemoglobin 34.5 H 27.0-33.0 pg Mean Corpuscular Hemoglobin Concent 32.8 32.0-36.0 g/dL Red Cell Distribution Width 16.7 H 11.0-15.5 % Platelet Count 191 130-400 K/uL Mean Platelet Volume 8.2 7.5-10.5 fL Immature Granulocyte % (Auto) 0.6 0-1 % Neutrophils (%) (Auto) 73.4 40.0-77.0 % Lymphocytes (%) (Auto) 14.8 L 21.0-51.0 % Monocytes (%) (Auto) 8.9 3.0-13.0 % Eosinophils (%) (Auto) 1.9 0.0-8.0 % Basophils (%) (Auto) 0.4 0.0-5.0 % Neutrophils # (Auto) 7.9 H 1.8-7.7 K/uL Lymphocytes # (Auto) 1.6 1.0-4.8 K/uL Monocytes # (Auto) 1.0 0.1-1.0 K/uL Eosinophils # (Auto) 0.20 0.00-0.70 K/uL Basophils # (Auto) 0.04 0.00-0.20 K/uL Absolute Immature Granulocyte (auto 0.06 0-1 K/uL Nucleated Red Blood Cells 0.0 0.0-0.19 % Red Blood Cell Morphology See comments Sodium Level 129 L 136-145 mmol/L Potassium Level 4.0 3.5-5.1 mmol/L Chloride Level 98 L 101-111 mmol/L Carbon Dioxide Level 26 21-32 mmol/L Blood Urea Nitrogen 9 7-18 mg/dL Creatinine 0.7 0.5-1.3 mg/dL Glomerular Filtration Rate Calc 111 >90 mL/min Random Glucose 120 H 70-105 mg/dL Lactic Acid Level 1.8 0.8-2.5 mmol/L Total Calcium 7.3 L 8.5-10.1 mg/dL Ammonia 42 H 11-32 umol/L Current Medications Medications (Trade) Dose Ordered Sig/Ronak Route PRN Reason Start Time Stop Time Status Last Admin Dose Admin Acetaminophen (TYLenol 325MG TAB) 650 mg Q4H PRN PO MILD PAIN (1-3) 02/02/25 07:00 03/04/25 06:59 Acetaminophen (TYLenol 325MG TAB) 650 mg Q6H PRN PO MILD PAIN (1-3) 02/02/25 07:00 02/02/25 07:05 DC Acetaminophen (TYLenol 325MG TAB) 650 mg Q6H PRN PO TEMPERATURE GREATER THAN 101.5 02/02/25 07:00 03/04/25 06:59 Acetaminophen/ Hydrocodone Bitart (NORco 5/325MG) 1 tab Q6H PRN PO MODERATE PAIN (4-6) 02/02/25 07:00 02/07/25 06:59 Al Hydroxide/Mg Hydroxide (MAALox PLUS 30ML) 30 ml Q6H PRN PO INDIGESTION 02/02/25 07:00 03/04/25 06:59 Dextrose (D50w) 50 ml AD PRN IV HYPOGLYCEMIA PROTOCOL 02/02/25 07:00 03/04/25 06:59 Diphenhydramine HCl (BENAdryl INJ) 25 mg Q6H PRN IV SEVERE ITCHING/RASH 02/02/25 07:00 03/04/25 06:59 Famotidine (Pepcid 20mg Vial) 20 mg BID IV 02/02/25 09:00 03/04/25 08:59 02/02/25 08:56 20 MG Famotidine (Pepcid 20mg Vial) 20 mg BID PRN IV NAUSEA/VOMITING 02/02/25 07:00 02/02/25 07:05 DC Furosemide (LASix 40MG TAB) 40 mg DAILY PO 02/03/25 09:00 02/02/25 10:15 DC Furosemide (LASix 40MG VIAL) 40 mg BID IVP 02/02/25 09:00 03/04/25 08:59 02/02/25 08:56 40 MG Glucagon (Glucagon 1mg Kit) 1 mg AD PRN IM HYPOGLYCEMIA PROTOCOL 02/02/25 07:00 03/04/25 06:59 Guaifenesin/ Dextromethorphan (RobiTUSSin DM 200/20MG 10ML) 10 ml Q4H PRN PO COUGH 02/02/25 07:00 03/04/25 06:59 Heparin Sodium (Porcine) (HEParin 5,000 UNIT VIAL) 5,000 unit Q12H SQ 02/02/25 09:00 03/04/25 08:59 02/02/25 08:56 5,000 UNIT Hydralazine HCl (APRESOLine 20MG INJ) 10 mg Q6H PRN IV For:SBP above 160;DBP above 90 02/02/25 07:00 03/04/25 06:59 Insulin Human Regular (humuLIN R 100 UNIT/ML 3ML) INSULIN SLIDING SCAL... ACHS SQ 02/02/25 07:30 03/04/25 07:29 Ketorolac Tromethamine (toRADol) 15 mg Q8H PRN IV MODERATE PAIN (4-6) 02/02/25 07:00 02/02/25 07:05 DC Lactulose (Constulose 20gm/ 30ml Udcup) 20 gm BID PO 02/02/25 21:00 03/04/25 20:59 Lactulose (Constulose 20gm/ 30ml Udcup) 20 gm BID PRN PO CONSTIPATION 02/02/25 07:00 03/04/25 06:59 Magnesium Sulfate 50 ml @ 0 mls/hr PROTOCOL PRN IV other 02/02/25 07:00 03/04/25 06:59 Morphine Sulfate (morPHINE 2MG SYG) 1 mg Q4H PRN IVP SEVERE PAIN (7-10) IF NPO 02/02/25 07:00 02/09/25 06:59 Multivitamins/ Minerals (Centrum) 1 tab DAILY PO 02/03/25 09:00 03/05/25 08:59 Nitroglycerin (Nitrostat) 0.4 mg PROTOCOL PRN SL CHEST PAIN 02/02/25 07:00 03/04/25 06:59 Ondansetron HCl (zoFRAN 4MG INJ) 4 mg Q6H PRN IV NAUSEA/VOMITING 02/02/25 07:00 03/04/25 06:59 Oxycodone/ Acetaminophen (perCOCET) 1 tab Q6H PRN PO SEVERE PAIN (7-10) 02/02/25 07:00 02/09/25 06:59 Piperacillin Sod/ Tazobactam Sod 50 ml @ 12.5 mls/hr Q8H IV 02/02/25 13:00 02/12/25 12:59 02/02/25 13:54 12.5 MLS/HR Potassium Chloride 100 ml @ 100 mls/hr AD PRN IV POTASSIUM PROTOCOL 02/02/25 07:00 03/04/25 06:59 Potassium Chloride (K-Dur/Klor-Con 20meq) 20 meq AD PRN PO POTASSIUM PROTOCOL 02/02/25 07:00 03/04/25 06:59 Potassium Chloride (KCl 10% Elixir 20meq/15ml) 20 meq AD PRN PO POTASSIUM PROTOCOL 02/02/25 07:00 03/04/25 06:59 Spironolactone (Aldactone 25mg) 100 mg DAILY PO 02/03/25 09:00 03/05/25 08:59 Thiamine HCl (Vitamin B-1) 100 mg DAILY PO 02/03/25 09:00 03/05/25 08:59 Zolpidem Tartrate (AmbIEN) 5 mg HS PRN PO INSOMNIA 02/02/25 07:00 03/04/25 06:59 DIAGNOSTICS / RADIOLOGY: [ ] ASSESSMENT: [ Acute sepsis POA Large pleural effusion per chest x-ray and CT chest POA Alcoholic liver cirrhosis s/p multiple paracentesis POA Electrolyte imbalance hyponatremia Na 129 POA Multifactorial anemia POA Leukocytosis WBC 10.7 POA Cough POA ] PLAN: [ Ultrasound abdomen pending Hyper hypoglycemia protocol Hypokalemia protocol Hypomagnesemia protocol I's and O's Q shift Blood culture pending Daily weights pending PRN medications Blood culture pending A.m. labs GI soft diet PT evaluation consulted Pulmonology consultation pending Case management evaluation pending Patient placed on Zosyn antibiotics ] ADVANCED CARE PLANNING 1. Which of the following were discussed? Hospice Care - Yes / No Therapeutic options - Yes / No Advance Directives - Yes / No Other discussions - 2. Discussed with who? Patient 3. Voluntary nature of this service was explained to the patient? Yes / No 4. Amount of time spent - __ more than 35 minute 5. Reviewed by Physician? (if this service was performed by NPP) Yes / No ATTESTATION BY PHYSICIAN I have seen and examined the patient. I reviewed the documentation, medical decision making, and treatment plan as noted by the mid-level provider above. I agree with the findings and plan of care. Yelena Richardson MD, KAT[facility] B CHAIR LIFT OPERATOR Feb 02, 2025 15:42
[2025-02-02 17:08] VITALS: BP 122/69; PULSE 115; RESP 18; TEMP 98.1
[2025-02-02] MEDS: guaiFENesin-DM 200/20MG 10ML PO PRN (17:30)
[2025-02-02 20:00] VITALS: BP 121/83; PULSE 118; RESP 18; TEMP 98.2
[2025-02-02 20:45] VITALS: O2SAT 96
[2025-02-02] MEDS: LACTULOSE 20 GM/30 ML UDCUP PO SCH (21:16)
[2025-02-02 23:28] LABS: INR 1.36 (0.85-1.15)
[2025-02-03] VITALS (8 sets, daily range): BP systolic 115–166; BP diastolic 69–85; PULSE 114–123; RESP 16–18; TEMP 98.1–98.5; O2SAT 93–99
[2025-02-03 05:52] LABS: IMMATURE GRANULOCYTE ABSOLUTE 0.03 K/uL (0-1); NUCLEATED RED BLOOD CELLS 0.0 % (0.0-0.19); PLATELET COUNT (AUTO) 212 K/uL (130-400); RED BLOOD CELL COUNT(AUTO) 2.35 MIL/uL (4.50-6.20); RED CELL DISTRIBUTION WIDTH 16.3 % (11.0-15.5); WHITE BLOOD COUNT (AUTO) 9.1 K/uL (4.8-10.8)
[2025-02-03 06:21] LABS: ASPARTATE AMINOTRANSFERASE 36.0 U/L (10-37); CREATINE KINASE, TOTAL 28.0 U/L (21-232); CREATININE 0.7 mg/dL (0.5-1.3); GLOMERULAR FILTR. RATE CALC 111.0 mL/min (>90); GLUCOSE,RANDOM 88.0 mg/dL (70-105); SODIUM SERUM 130.0 mmol/L (136-145); TOTAL PROTEIN, SERUM 5.6 g/dL (6.0-8.3); UREA NITROGEN, BLOOD 8.0 mg/dL (7-18)
[2025-02-03] MEDS ORDERED: GLUCAGON 1MG KIT 1 MG ML IM PRN (08:00)
[2025-02-03] MEDS ORDERED: DEXTROSE 50%-WATER 50 ML DISP.SYRIN IV PRN (08:00)
[2025-02-03] MEDS: SPIRONOLACTONE 25 MG TAB PO SCH (08:47)
[2025-02-03] MEDS: MULTIVITAMIN WITH MINERALS TABLET PO SCH (08:47)
[2025-02-03] MEDS: PoTASSium chloRIDE 20MEQ ER 20 MEQ ERTAB PO PRN (08:47)
[2025-02-03] MEDS: THIAMINE HCL 100 MG TABLET PO SCH (08:47)
--- NOTE | 2025-02-03 09:48 | PN ---
[facility] PROGRESS NOTE Date Patient Seen: Feb 03, 2025 Time of Visit: 09:48 Supervising Physician: Dr. Persaud Primary Care Physician: [ ] Outpatient Specialists: [ ] Inpatient Consults: [ ] PROBLEM LIST: Acute sepsis POA Large pleural effusion per chest x-ray and CT chest POA Alcoholic liver cirrhosis s/p multiple paracentesis POA Electrolyte imbalance hyponatremia Na 129 POA Multifactorial anemia POA Leukocytosis WBC 10.7 POA Cough POA INTERVAL HISTORY: Patient was evaluated at bedside today, he remains on room air at this time. There has been no status change in the patient's presentation. He is still pending paracentesis at this time, orders placed for IR paracentesis to be performed in the morning following the holiday. We will continue to follow along closely, at the time paracentesis is performed we will evaluate for thoracentesis if indicated. Patient has been updated on the current treatment plan. REVIEW OF SYSTEMS: 12 point ROS reviewed with patient. Pertinent positives mentioned above. Otherwise negative. PHYSICAL EXAM: GENERAL: alert, weak, awake oriented x 3 HEENT: EOMI, Sclera non icteric, moist mucosa NECK: Supple, no JVD, trachea midline LUNGS: Clear breath sounds bilaterally. No wheezes HEART: Regular rate and rhythm. Normal S1 and S2, without murmurs ABD: Abdomen soft, nontender. Bowel sounds present EXT: No clubbing cyanosis or edema NEURO: Alert and oriented to person, follows commands Vital Signs (last 8hr) Date Time Temp Pulse Resp B/P (MAP) Pulse Ox O2 Delivery O2 Flow Rate FiO2 02/03/25 07:28 98.1 119 18 138/82 99 Room Air 02/03/25 04:00 98.4 122 18 120/72 98 Room Air LABS: Hematology Labs: Test 02/03/25 05:44 02/02/25 06:00 Range/Units White Blood Count 9.1 4.8-10.8 K/uL Red Blood Count 2.35 L 4.50-6.20 MIL/uL Hemoglobin 8.2 L 14.0-18.0 g/dL Hematocrit 24.5 L 42-54 % Mean Corpuscular Volume 104.3 H 79-99 fL Mean Corpuscular Hemoglobin 34.9 H 27.0-33.0 pg Mean Corpuscular Hemoglobin Concent 33.5 32.0-36.0 g/dL Red Cell Distribution Width 16.3 H 11.0-15.5 % Platelet Count 212 130-400 K/uL Mean Platelet Volume 8.2 7.5-10.5 fL Immature Granulocyte % (Auto) 0.3 0-1 % Neutrophils (%) (Auto) 69.8 40.0-77.0 % Lymphocytes (%) (Auto) 18.6 L 21.0-51.0 % Monocytes (%) (Auto) 8.8 3.0-13.0 % Eosinophils (%) (Auto) 2.0 0.0-8.0 % Basophils (%) (Auto) 0.5 0.0-5.0 % Neutrophils # (Auto) 6.4 1.8-7.7 K/uL Lymphocytes # (Auto) 1.7 1.0-4.8 K/uL Monocytes # (Auto) 0.8 0.1-1.0 K/uL Eosinophils # (Auto) 0.18 0.00-0.70 K/uL Basophils # (Auto) 0.05 0.00-0.20 K/uL Absolute Immature Granulocyte (auto 0.03 0-1 K/uL Nucleated Red Blood Cells 0.0 0.0-0.19 % Red Blood Cell Morphology See comments Chemistry Labs: Test 02/03/25 05:44 02/03/25 05:33 02/02/25 06:00 Range/Units Sodium Level 130 L 136-145 mmol/L Potassium Level 3.5 3.5-5.1 mmol/L Chloride Level 97 L 101-111 mmol/L Carbon Dioxide Level 26 21-32 mmol/L Blood Urea Nitrogen 8 7-18 mg/dL Creatinine 0.7 0.5-1.3 mg/dL Glomerular Filtration Rate Calc 111 >90 mL/min Random Glucose 88 70-105 mg/dL Lactic Acid Level 1.1 0.8-2.5 mmol/L Total Calcium 7.2 L 8.5-10.1 mg/dL Magnesium Level 1.50 L 1.80-2.40 mg/dL Total Bilirubin 1.3 H 0.2-1.0 mg/dL Aspartate Amino Transf (AST/SGOT) 36 10-37 U/L Alanine Aminotransferase (ALT/SGPT) 14 12-78 U/L Alkaline Phosphatase 261 H 50-136 U/L Ammonia 40 H 11-32 umol/L Total Creatine Kinase 28 21-232 U/L B-Type Natriuretic Peptide 92 0-100 pg/mL Total Protein 5.6 L 6.0-8.3 g/dL Albumin 1.6 L 3.5-5.0 g/dL Amylase Level 61 25-115 U/L Lipase 48 16-77 U/L Procalcitonin < 0.05 L 0.05-0.5 ng/mL Thyroid Stimulating Hormone (TSH) 0.89 # 0.36-3.74 uIU/mL Free Thyroxine (T4) Direct 1.39 0.76-1.46 ng/dL Free Triiodothyronine (T3) pg/mL 1.34 L 2.18-3.98 pg/mL Whole Blood Glucose 89 70-110 MG/DL Hemoglobin A1c 4.0 4.0-6.0 % Estimated Average Glucose (eAG) 68 L 70-126 mg/dL Coagulation Labs: Test 02/02/25 22:45 Range/Units Prothrombin Time 14.0 H 9.6-11.6 SEC Prothromb Time International Ratio 1.36 H 0.85-1.15 DIAGNOSTICS / RADIOLOGY RESULTS: [ ] PLAN NEURO: Minimize central acting medications as possible. Maintain fall precautions, adequate lighting during the day PULMONARY: Supplemental 02 as needed. Maintain aspiration precautions at all times CARDIOVASCULAR: Follow hemodynamics. Vital signs per facility protocol GI & NUTRITION: Continue with nutritional support. Continue stool softeners and laxatives as needed. KIDNEYS & ELECTROLYTES: Strict monitoring of intake, output and overall fluid balance. Avoid nephrotoxic medications to the extent possible. Medications to be dosed according to renal function. Monitor electrolytes and replace as needed ENDOCRINE: Maintain blood glucose between 100-180 at all times. Hypoglycemia protocol in place INFECTIOUS DISEASE: Trend temperature, WBC and procalcitonin level Follow cultures, deescalate antibiotics as soon as possible. Panculture if new onset fever ONCOLOGY/HEMATOLOGY/COAGULATION: Monitor for s/s of bleeding Monitor hemoglobin, coagulation studies as needed SKIN: Pressure ulcer prevention per facility protocol Specialty mattress ORTHO/REHAB: Continue PT/OT Prophylaxis: Continue GI and DVT prophylaxis Code Status: Full Resuscitation Disposition: TBD Other: Total patient care time exceeds 35 minutes excluding all procedures. GLENN ATKINS PAC Feb 03, 2025 09:48
--- NOTE | 2025-02-03 11:46 | PN ---
[facility] PROGRESS NOTE Date of Service: Feb 03, 2025 Time of Service: 11:[address] Richardson SUBJECTIVE: [ 02/02 Patient is54 years old male with a past medical history of alcoholic cirrhosis of liver, multiple recurrent ascites s/p paracentesis, portal gastropathy, hyponatremia and pleural effusion who came to emergency department with a complaint of shortness of breaths, vomiting, progressive cough for the past three days. Patient stated that recently he was discharged on 01/25/2025 where he was diagnosed with moderate to large pleural effusion] Most recent vital signs temperature 99.9 pulse 106 respirations 16 blood pressure 110/75 patient is on room air satting 100%. WBC 10.7 Hemoglobin 8.2 hematocrit 25platelets 191 , urinalysis negative. Influenza A negative influenza B negative COVID negative. Toxicology negative. Sodium 129 potassium 4.0 CO2 26 BUN nine creatinine 0.7 [id number] lactic 1.8 ammonia 42. Chest x-ray showed moderate right pleural effusion with lung atelectasis no evidence of pneumothorax. Chest CT showed large right-sided pleural effusion which is causing atelectasis of the right lower lung. There is a tips shunt in place. 2D echo more than 65% left ventricle diastolic function is normal. We consulted indexer for further evaluation/recommendation. Patient is pending thoracentesis on 02/02/2025. Patient will be admitted under hospitalist care for further evaluation/recommendation. 02/03 patient was seen by nurse practitioner and physician during rounding in room 319. Chest x-ray showed moderate right pleural effusion. CT chest showed large right pleural effusion/atelectasis and large ascites in the abdomen. 2D echo showed EF of more than 60% normal function. Patient is pending thoracentesis as per indexer. We will also order IR for the paracentesis for large ascites in the abdomen. As per patient he sees Dr. Stephanie MONSON and his neck is appointment for the paracentesis is on Friday02/11/2025 at 5:00 p.m.. At this moment we will continue to monitor patient in the meantime. A.m. labs. ] REVIEW OF SYSTEMS CONSTITUTIONAL: Denies fevers, chills, or night sweats. No unintentional weight loss reported. NEUROLOGICAL: Denies headache, amaurosis fugax, motor weakness, sensory deficit, vertigo/spinning sensation, gait abnormalities, or tremors. ENT: No hearing loss, otalgia, otorrhea, rhinitis, rhinorrhea, hoarseness, or sore throat. CARDIOVASCULAR: Denies any exertional angina, dyspnea on exertion, orthopnea, paroxysmal nocturnal dyspnea, palpitations, life-threatening arrhythmias, claudication. PULMONARY: Denies any , cough, phlegm/sputum, hemoptysis, pleuritic chest pain. Complains of shortness of breaths SLEEP: Denies morning headaches, daytime somnolence or napping. Denies difficulty falling asleep, staying asleep, waking from sleep. Denies knowledge of snoring. GASTROINTESTINAL: Denies any type of dysphagia to either liquids or solids. Denies nausea, vomiting, pyrosis, early satiety, abdominal pain, diarrhea, constipation, or changes in stool consistency or caliber. Denies coffee-ground emesis, hematemesis, hematochezia, or melanotic stools. GENITOURINARY: Denies frequency, urgency, nocturia, hematuria or incontinence (Storage/Irritative symptoms.) Low urinary stream, straining to void, urinary intermittency or hesitancy, splitting of the voiding stream, terminal dribbling. ENDOCRINOLOGIC: Denies polyuria, polydipsia, polyphagia or heat/cold intolerances. HEMATOLOGIC: Denies thrombophilia/previous clots, or coagulopathy/bleeding disorders. ONCOLOGIC: Denies personal history of malignancy. DERMATOLOGIC: Denies rashes or pruritus. PSYCHIATRIC: Denies any suicidal or homicidal ideation. Denies hallucinations. PHYSICAL EXAM GENERAL APPEARANCE: The patient is awake, alert, and oriented, in no acute cardiopulmonary distress. NEUROLOGICAL: Cranial nerves II-XII grossly intact. Motor is 5/5 in bilateral upper and lower extremities proximal to distal. No sensory deficits. HEENT: Face is symmetric. Pupils are equal and reactive. Extraocular movements are intact. NECK: Supple. No JVD. No thyromegaly. No submental, submandibular, pre- /postauricular, occipital or supraclavicular lymphadenopathy. CHEST: Normal chest expansion. No Telemetry. LUNGS: Absence of any rales, rhonchi or any wheezing. CARDIOVASCULAR: Regular. S1 and S2 normal. No appreciable rubs, murmurs or gallops. ABDOMEN: Soft, nontender, and nondistended. There is no rebound, voluntary guarding, or rigidity. : Deferred. No Espinosa. EXTREMITIES: Non-edematous and not cyanotic. No clubbing. Good capillary refill. SKIN: No skin breakdown. Vital Signs (last 8hr) Date Time Temp Pulse Resp B/P (MAP) Pulse Ox O2 Delivery O2 Flow Rate FiO2 02/03/25 11:15 98.4 123 17 135/83 99 Room Air 02/03/25 07:28 98.1 119 18 138/82 99 Room Air 02/03/25 04:00 98.4 122 18 120/72 98 Room Air LABS: Laboratory: Test 02/03/25 10:35 02/03/25 05:44 02/02/25 22:45 02/02/25 08:16 Range/Units Whole Blood Glucose 103 70-110 MG/DL White Blood Count 9.1 4.8-10.8 K/uL Red Blood Count 2.35 L 4.50-6.20 MIL/uL Hemoglobin 8.2 L 14.0-18.0 g/dL Hematocrit 24.5 L 42-54 % Mean Corpuscular Volume 104.3 H 79-99 fL Mean Corpuscular Hemoglobin 34.9 H 27.0-33.0 pg Mean Corpuscular Hemoglobin Concent 33.5 32.0-36.0 g/dL Red Cell Distribution Width 16.3 H 11.0-15.5 % Platelet Count 212 130-400 K/uL Mean Platelet Volume 8.2 7.5-10.5 fL Immature Granulocyte % (Auto) 0.3 0-1 % Neutrophils (%) (Auto) 69.8 40.0-77.0 % Lymphocytes (%) (Auto) 18.6 L 21.0-51.0 % Monocytes (%) (Auto) 8.8 3.0-13.0 % Eosinophils (%) (Auto) 2.0 0.0-8.0 % Basophils (%) (Auto) 0.5 0.0-5.0 % Neutrophils # (Auto) 6.4 1.8-7.7 K/uL Lymphocytes # (Auto) 1.7 1.0-4.8 K/uL Monocytes # (Auto) 0.8 0.1-1.0 K/uL Eosinophils # (Auto) 0.18 0.00-0.70 K/uL Basophils # (Auto) 0.05 0.00-0.20 K/uL Absolute Immature Granulocyte (auto 0.03 0-1 K/uL Nucleated Red Blood Cells 0.0 0.0-0.19 % Sodium Level 130 L 136-145 mmol/L Potassium Level 3.5 3.5-5.1 mmol/L Chloride Level 97 L 101-111 mmol/L Carbon Dioxide Level 26 21-32 mmol/L Blood Urea Nitrogen 8 7-18 mg/dL Creatinine 0.7 0.5-1.3 mg/dL Glomerular Filtration Rate Calc 111 >90 mL/min Random Glucose 88 70-105 mg/dL Lactic Acid Level 1.1 0.8-2.5 mmol/L Total Calcium 7.2 L 8.5-10.1 mg/dL Magnesium Level 1.50 L 1.80-2.40 mg/dL Total Bilirubin 1.3 H 0.2-1.0 mg/dL Aspartate Amino Transf (AST/SGOT) 36 10-37 U/L Alanine Aminotransferase (ALT/SGPT) 14 12-78 U/L Alkaline Phosphatase 261 H 50-136 U/L Ammonia 40 H 11-32 umol/L Total Creatine Kinase 28 21-232 U/L B-Type Natriuretic Peptide 92 0-100 pg/mL Total Protein 5.6 L 6.0-8.3 g/dL Albumin 1.6 L 3.5-5.0 g/dL Amylase Level 61 25-115 U/L Lipase 48 16-77 U/L Procalcitonin < 0.05 L 0.05-0.5 ng/mL Thyroid Stimulating Hormone (TSH) 0.89 # 0.36-3.74 uIU/mL Free Thyroxine (T4) Direct 1.39 0.76-1.46 ng/dL Free Triiodothyronine (T3) pg/mL 1.34 L 2.18-3.98 pg/mL Prothrombin Time 14.0 H 9.6-11.6 SEC Prothromb Time International Ratio 1.36 H 0.85-1.15 Urine Color LIGHT-YELLOW YELLOW Urine Appearance CLEAR CLEAR Urine pH 6.5 5.0-8.0 Urine Specific [place] 1.008 1.001-1.031 Urine Protein NEGATIVE NEGATIVE mg/dL Urine Glucose (UA) NEGATIVE NEGATIVE mg/dL Urine Ketones NEGATIVE NEGATIVE mg/dL Urine Occult Blood NEGATIVE NEGATIVE Urine Nitrate NEGATIVE NEGATIVE Urine Bilirubin NEGATIVE NEGATIVE mg/dL Urine Urobilinogen 0.2 0.2-1.0 mg/dL Urine Leukocyte Esterase NEGATIVE NEGATIVE Pattie/uL Urine RBC None Seen 0-1 /HPF Urine WBC 0-1 0-1 /HPF Urine Squamous Epithelial Cells Rare 0-2 /HPF Urine Bacteria None Seen None Seen /HPF Urine Opiates Screen NEGATIVE NEGATIVE Urine Barbiturates Screen NEGATIVE NEGATIVE Urine Phencyclidine Screen NEGATIVE NEGATIVE Urine Amphetamines Screen NEGATIVE NEGATIVE Urine Benzodiazepines Screen NEGATIVE NEGATIVE Urine Cocaine Screen NEGATIVE NEGATIVE Urine Marijuana (THC) Screen NEGATIVE NEGATIVE Test 02/02/25 07:02 02/02/25 06:00 Range/Units Influenza Type A Antigen Negative For Type A NEGATIVE Influenza Type B Antigen Negative For Type B NEGATIVE SARS-CoV-2, RNA, NAAT NEGATIVE SARS CoV-2 NEGATIVE Red Blood Cell Morphology See comments Hemoglobin A1c 4.0 4.0-6.0 % Estimated Average Glucose (eAG) 68 L 70-126 mg/dL Current Medications Medications (Trade) Dose Ordered Sig/Ronak Route PRN Reason Start Time Stop Time Status Last Admin Dose Admin Acetaminophen (TYLenol 325MG TAB) 650 mg Q4H PRN PO MILD PAIN (1-3) 02/02/25 07:00 03/04/25 06:59 Acetaminophen (TYLenol 325MG TAB) 650 mg Q6H PRN PO MILD PAIN (1-3) 02/02/25 07:00 02/02/25 07:05 DC Acetaminophen (TYLenol 325MG TAB) 650 mg Q6H PRN PO TEMPERATURE GREATER THAN 101.5 02/02/25 07:00 03/04/25 06:59 Acetaminophen/ Hydrocodone Bitart (NORco 5/325MG) 1 tab Q6H PRN PO MODERATE PAIN (4-6) 02/02/25 07:00 02/07/25 06:59 Al Hydroxide/Mg Hydroxide (MAALox PLUS 30ML) 30 ml Q6H PRN PO INDIGESTION 02/02/25 07:00 03/04/25 06:59 Dextrose (D50w) 50 ml AD PRN IV HYPOGLYCEMIA PROTOCOL 02/02/25 07:00 02/03/25 07:51 DC Dextrose (D50w) 50 ml AD PRN IV HYPOGLYCEMIA PROTOCOL 02/03/25 08:00 03/05/25 07:59 Diphenhydramine HCl (BENAdryl INJ) 25 mg Q6H PRN IV SEVERE ITCHING/RASH 02/02/25 07:00 03/04/25 06:59 Famotidine (Pepcid 20mg Vial) 20 mg BID IV 02/02/25 09:00 03/04/25 08:59 02/03/25 08:47 20 MG Famotidine (Pepcid 20mg Vial) 20 mg BID PRN IV NAUSEA/VOMITING 02/02/25 07:00 02/02/25 07:05 DC Furosemide (LASix 40MG TAB) 40 mg DAILY PO 02/03/25 09:00 02/02/25 10:15 DC Furosemide (LASix 40MG VIAL) 40 mg BID IVP 02/02/25 09:00 03/04/25 08:59 02/03/25 08:47 40 MG Glucagon (Glucagon 1mg Kit) 1 mg AD PRN IM HYPOGLYCEMIA PROTOCOL 02/02/25 07:00 02/03/25 07:52 DC Glucagon (Glucagon 1mg Kit) 1 mg AD PRN IM HYPOGLYCEMIA PROTOCOL 02/03/25 08:00 03/05/25 07:59 Guaifenesin/ Dextromethorphan (RobiTUSSin DM 200/20MG 10ML) 10 ml Q4H PRN PO COUGH 02/02/25 07:00 03/04/25 06:59 02/02/25 17:30 10 ML Heparin Sodium (Porcine) (HEParin 5,000 UNIT VIAL) 5,000 unit Q12H SQ 02/02/25 09:00 03/04/25 08:59 02/03/25 08:57 5,000 UNIT Hydralazine HCl (APRESOLine 20MG INJ) 10 mg Q6H PRN IV For:SBP above 160;DBP above 90 02/02/25 07:00 03/04/25 06:59 Insulin Human Regular (humuLIN R 100 UNIT/ML 3ML) INSULIN SLIDING SCAL... ACHS SQ 02/02/25 07:30 03/04/25 07:29 Ketorolac Tromethamine (toRADol) 15 mg Q8H PRN IV MODERATE PAIN (4-6) 02/02/25 07:00 02/02/25 07:05 DC Lactulose (Constulose 20gm/ 30ml Udcup) 20 gm BID PO 02/02/25 21:00 03/04/25 20:59 02/03/25 08:47 20 GM Lactulose (Constulose 20gm/ 30ml Udcup) 20 gm BID PRN PO CONSTIPATION 02/02/25 07:00 03/04/25 06:59 Magnesium Sulfate 50 ml @ 0 mls/hr PROTOCOL PRN IV other 02/02/25 07:00 03/04/25 06:59 Morphine Sulfate (morPHINE 2MG SYG) 1 mg Q4H PRN IVP SEVERE PAIN (7-10) IF NPO 02/02/25 07:00 02/09/25 06:59 02/03/25 03:20 1 MG Multivitamins/ Minerals (Centrum) 1 tab DAILY PO 02/03/25 09:00 03/05/25 08:59 02/03/25 08:47 1 TAB Nitroglycerin (Nitrostat) 0.4 mg PROTOCOL PRN SL CHEST PAIN 02/02/25 07:00 03/04/25 06:59 Ondansetron HCl (zoFRAN 4MG INJ) 4 mg Q6H PRN IV NAUSEA/VOMITING 02/02/25 07:00 03/04/25 06:59 Oxycodone/ Acetaminophen (perCOCET) 1 tab Q6H PRN PO SEVERE PAIN (7-10) 02/02/25 07:00 02/09/25 06:59 Piperacillin Sod/ Tazobactam Sod 50 ml @ 12.5 mls/hr Q8H IV 02/02/25 13:00 02/12/25 12:59 02/03/25 05:14 12.5 MLS/HR Potassium Chloride 100 ml @ 100 mls/hr AD PRN IV POTASSIUM PROTOCOL 02/02/25 07:00 03/04/25 06:59 Potassium Chloride (K-Dur/Klor-Con 20meq) 20 meq AD PRN PO POTASSIUM PROTOCOL 02/02/25 07:00 03/04/25 06:59 02/03/25 08:47 20 MEQ Potassium Chloride (KCl 10% Elixir 20meq/15ml) 20 meq AD PRN PO POTASSIUM PROTOCOL 02/02/25 07:00 03/04/25 06:59 Spironolactone (Aldactone 25mg) 100 mg DAILY PO 02/03/25 09:00 03/05/25 08:59 02/03/25 08:47 100 MG Thiamine HCl (Vitamin B-1) 100 mg DAILY PO 02/03/25 09:00 03/05/25 08:59 02/03/25 08:47 100 MG Zolpidem Tartrate (AmbIEN) 5 mg HS PRN PO INSOMNIA 02/02/25 07:00 03/04/25 06:59 DIAGNOSTICS / RADIOLOGY: [ ] ASSESSMENT: [ Acute sepsis POA Large pleural effusion per chest x-ray and CT chest POA Large ascites in the abdomen per CT chest Alcoholic liver cirrhosis s/p multiple paracentesis POA Electrolyte imbalance hyponatremia Na 129 POA Multifactorial anemia POA Leukocytosis WBC 10.7 POA Cough POA ] PLAN: [ Chest x-ray showed moderate right pleural effusion. CT chest showed large right pleural effusion/atelectasis and large ascites in the abdomen. 2D echo showed EF of more than 60% normal function. Patient is pending thoracentesis as per indexer. We will also order IR for the paracentesis for large ascites in the abdomen. As per patient he sees Dr. Stephanie MONSON and his neck is appointment for the paracentesis is on Friday02/11/2025 at 5:00 p.m.. At this moment we will continue to monitor patient in the meantime. A.m. labs. Hyper hypoglycemia protocol Hypokalemia protocol Hypomagnesemia protocol I's and O's Q shift Blood culture pending Daily weights PRN medications Blood culture pending A.m. labs GI soft diet PT evaluation consulted Pulmonology consultation pending Case management evaluation pending Patient placed on Zosyn antibiotics ] ATTESTATION BY PHYSICIAN I have seen and examined the patient. I reviewed the documentation, medical decision making, and treatment plan as noted by the mid-level provider above. I agree with the findings and plan of care. Yelena Richardson MD, [employer] SUPERVISOR Feb 03, 2025 11:46
[2025-02-03] MEDS: PoTASSium chloRIDE 20MEQ ER 20 MEQ ERTAB PO ONE (12:59)
[2025-02-03] MEDS: MAGNESIUM 2GM PREMIX 50ML 50 ML IV SCH (16:44)
--- NOTE | 2025-02-03 20:29 | HMCIMG ---
EXAM: CR Chest, 1 View. CLINICAL HISTORY: pre-procedure COMPARISON: CR and CT chest dated 02/02/2025 FINDINGS: LUNGS: Persistent right moderate pleural effusion with adjacent lung atelectasis. PLEURAL SPACES: No evidence of pleural effusion or pneumothorax. MEDIASTINUM: The cardiomediastinal silhouette is within normal limits. BONES: No aggressive appearing osseous lesion seen. IMPRESSION: Persistent right moderate pleural effusion with adjacent lung atelectasis. /[place]
[2025-02-03] MEDS: PoTASSium chl 10% ELIXIR 20MEQ 20 MEQ/15 ML UDCUP PO PRN (23:41)
[2025-02-04] VITALS (7 sets, daily range): BP systolic 120–143; BP diastolic 71–84; PULSE 99–121; RESP 20–24; TEMP 98–98.6; O2SAT 92–94
--- NOTE | 2025-02-04 09:29 | PN ---
[facility] PROGRESS NOTE Date Patient Seen: Feb 04, 2025 Time of Visit: 09:29 Supervising Physician: Dr. Persaud Primary Care Physician: [ ] Outpatient Specialists: [ ] Inpatient Consults: [ ] PROBLEM LIST: Acute sepsis POA Large Ascites Large pleural effusion per chest x-ray and CT chest POA Alcoholic liver cirrhosis s/p multiple paracentesis POA Electrolyte imbalance hyponatremia Na 129 POA Multifactorial anemia POA Leukocytosis WBC 10.7 POA Cough POA INTERVAL HISTORY: Patient evaluated at bedside today, currently on 2 L nasal cannula. Patient moves short of breath on room air and endorses discomfort secondary to large volume ascites. As Interventional Radiology was not available at this time bedside paracentesis was attempted, but was unsuccessful and draining in his significant amount of fluid. Patient advised this would require that we postpone until Interventional Radiology is available for CT-guided paracentesis with large bore catheter. Nursing staff present for the attempt. Patient expressed understanding of current treatment plan. REVIEW OF SYSTEMS: 12 point ROS reviewed with patient. Pertinent positives mentioned above. Otherwise negative. PHYSICAL EXAM: GENERAL: alert, weak, awake oriented x 3 HEENT: EOMI, Sclera non icteric, moist mucosa NECK: Supple, no JVD, trachea midline LUNGS: Clear breath sounds bilaterally. No wheezes HEART: Regular rate and rhythm. Normal S1 and S2, without murmurs ABD: Abdomen soft, nontender. Bowel sounds present EXT: No clubbing cyanosis or edema NEURO: Alert and oriented to person, follows commands Vital Signs (last 8hr) Date Time Temp Pulse Resp B/P (MAP) Pulse Ox O2 Delivery O2 Flow Rate FiO2 02/04/25 08:00 98.6 121 20 120/71 Nasal Cannula 2.0 02/04/25 04:00 98.1 104 24 134/73 96 Nasal Cannula 2.0 LABS: Hematology Labs: Test 02/03/25 05:44 Range/Units White Blood Count 9.1 4.8-10.8 K/uL Red Blood Count 2.35 L 4.50-6.20 MIL/uL Hemoglobin 8.2 L 14.0-18.0 g/dL Hematocrit 24.5 L 42-54 % Mean Corpuscular Volume 104.3 H 79-99 fL Mean Corpuscular Hemoglobin 34.9 H 27.0-33.0 pg Mean Corpuscular Hemoglobin Concent 33.5 32.0-36.0 g/dL Red Cell Distribution Width 16.3 H 11.0-15.5 % Platelet Count 212 130-400 K/uL Mean Platelet Volume 8.2 7.5-10.5 fL Immature Granulocyte % (Auto) 0.3 0-1 % Neutrophils (%) (Auto) 69.8 40.0-77.0 % Lymphocytes (%) (Auto) 18.6 L 21.0-51.0 % Monocytes (%) (Auto) 8.8 3.0-13.0 % Eosinophils (%) (Auto) 2.0 0.0-8.0 % Basophils (%) (Auto) 0.5 0.0-5.0 % Neutrophils # (Auto) 6.4 1.8-7.7 K/uL Lymphocytes # (Auto) 1.7 1.0-4.8 K/uL Monocytes # (Auto) 0.8 0.1-1.0 K/uL Eosinophils # (Auto) 0.18 0.00-0.70 K/uL Basophils # (Auto) 0.05 0.00-0.20 K/uL Absolute Immature Granulocyte (auto 0.03 0-1 K/uL Nucleated Red Blood Cells 0.0 0.0-0.19 % Chemistry Labs: Test 02/04/25 05:19 02/03/25 05:44 Range/Units Whole Blood Glucose 94 70-110 MG/DL Sodium Level 130 L 136-145 mmol/L Potassium Level 3.5 3.5-5.1 mmol/L Chloride Level 97 L 101-111 mmol/L Carbon Dioxide Level 26 21-32 mmol/L Blood Urea Nitrogen 8 7-18 mg/dL Creatinine 0.7 0.5-1.3 mg/dL Glomerular Filtration Rate Calc 111 >90 mL/min Random Glucose 88 70-105 mg/dL Lactic Acid Level 1.1 0.8-2.5 mmol/L Total Calcium 7.2 L 8.5-10.1 mg/dL Magnesium Level 1.50 L 1.80-2.40 mg/dL Total Bilirubin 1.3 H 0.2-1.0 mg/dL Aspartate Amino Transf (AST/SGOT) 36 10-37 U/L Alanine Aminotransferase (ALT/SGPT) 14 12-78 U/L Alkaline Phosphatase 261 H 50-136 U/L Ammonia 40 H 11-32 umol/L Total Creatine Kinase 28 21-232 U/L B-Type Natriuretic Peptide 92 0-100 pg/mL Total Protein 5.6 L 6.0-8.3 g/dL Albumin 1.6 L 3.5-5.0 g/dL Amylase Level 61 25-115 U/L Lipase 48 16-77 U/L Procalcitonin < 0.05 L 0.05-0.5 ng/mL Thyroid Stimulating Hormone (TSH) 0.89 # 0.36-3.74 uIU/mL Free Thyroxine (T4) Direct 1.39 0.76-1.46 ng/dL Free Triiodothyronine (T3) pg/mL 1.34 L 2.18-3.98 pg/mL Coagulation Labs: Test 02/02/25 22:45 Range/Units Prothrombin Time 14.0 H 9.6-11.6 SEC Prothromb Time International Ratio 1.36 H 0.85-1.15 DIAGNOSTICS / RADIOLOGY RESULTS: [ ] PLAN NEURO: Minimize central acting medications as possible. Maintain fall precautions, adequate lighting during the day PULMONARY: Supplemental 02 as needed. Maintain aspiration precautions at all times CARDIOVASCULAR: Follow hemodynamics. Vital signs per facility protocol GI & NUTRITION: Continue with nutritional support. Continue stool softeners and laxatives as needed. KIDNEYS & ELECTROLYTES: Strict monitoring of intake, output and overall fluid balance. Avoid nephrotoxic medications to the extent possible. Medications to be dosed according to renal function. Monitor electrolytes and replace as needed ENDOCRINE: Maintain blood glucose between 100-180 at all times. Hypoglycemia protocol in place INFECTIOUS DISEASE: Trend temperature, WBC and procalcitonin level Follow cultures, deescalate antibiotics as soon as possible. Panculture if new onset fever ONCOLOGY/HEMATOLOGY/COAGULATION: Monitor for s/s of bleeding Monitor hemoglobin, coagulation studies as needed SKIN: Pressure ulcer prevention per facility protocol Specialty mattress ORTHO/REHAB: Continue PT/OT Prophylaxis: Continue GI and DVT prophylaxis Code Status: Full Resuscitation Disposition: TBD Other: Total patient care time exceeds 35 minutes excluding all procedures. GLENN ATKINS PAC Feb 04, 2025 09:29
[2025-02-04] MEDS: ALBUMIN HUMAN 25% 100 ML IV SCH (09:37)
--- NOTE | 2025-02-04 10:00 | NUR ---
MEDICATION ADMINISTRATION AT 0900, 1 (ONE) MG MORPHINE ADMINISTERED TO PATIENT. COMPUTER ERROR OCCURRED AND ADMINISTRATION WAS NOT SAVED. THIS WAS NOTICED WHEN IT WAS TIME FOR REASSESSMENT OF THE PATIENT'S PAIN. PATIENT'S PAIN LEVEL AT THE TIME OF ADMINISTRATION WAS AN 8 AND THE PATIEN Addendum: 02/04/25 at 1213 by DINA SHINE RN RN -THE PATIENT STATED ON REASSESSMENT, THAT HIS PAIN LEVEL WAS DOWN TO ABOUT A 4.
--- NOTE | 2025-02-04 11:23 | PN ---
[facility] PROGRESS NOTE Date of Service: Feb 04, 2025 Time of Service: 11:[address] Richardson SUBJECTIVE: [ 02/02 Patient is54 years old male with a past medical history of alcoholic cirrhosis of liver, multiple recurrent ascites s/p paracentesis, portal gastropathy, hyponatremia and pleural effusion who came to emergency department with a complaint of shortness of breaths, vomiting, progressive cough for the past three days. Patient stated that recently he was discharged on 01/25/2025 where he was diagnosed with moderate to large pleural effusion] Most recent vital signs temperature 99.9 pulse 106 respirations 16 blood pressure 110/75 patient is on room air satting 100%. WBC 10.7 Hemoglobin 8.2 hematocrit 25platelets 191 , urinalysis negative. Influenza A negative influenza B negative COVID negative. Toxicology negative. Sodium 129 potassium 4.0 CO2 26 BUN nine creatinine 0.7 [id number] lactic 1.8 ammonia 42. Chest x-ray showed moderate right pleural effusion with lung atelectasis no evidence of pneumothorax. Chest CT showed large right-sided pleural effusion which is causing atelectasis of the right lower lung. There is a tips shunt in place. 2D echo more than 65% left ventricle diastolic function is normal. We consulted care navigator for further evaluation/recommendation. Patient is pending thoracentesis on 02/02/2025. Patient will be admitted under hospitalist care for further evaluation/recommendation. 02/03 patient was seen by nurse practitioner and physician during rounding in room 319. Chest x-ray showed moderate right pleural effusion. CT chest showed large right pleural effusion/atelectasis and large ascites in the abdomen. 2D echo showed EF of more than 60% normal function. Patient is pending thoracentesis as per care navigator. We will also order IR for the paracentesis for large ascites in the abdomen. As per patient he sees Dr. Stephanie MONSON and his neck is appointment for the paracentesis is on Friday02/11/2025 at 5:00 p.m.. At this moment we will continue to monitor patient in the meantime. A.m. labs. 02/04/25 patient was seen by REPORTER and physician. Production Control Technologist was unable to perform thoracentesis. At this moment they recommend to continue with furosemide and spironolactone and do paracentesis 1st. At this moment we do not have IR in the building. We will continue to monitor patient in the meantime. A.m. labs. Patient updated with the further plan and recommendations] REVIEW OF SYSTEMS CONSTITUTIONAL: Denies fevers, chills, or night sweats. No unintentional weight loss reported. NEUROLOGICAL: Denies headache, amaurosis fugax, motor weakness, sensory deficit, vertigo/spinning sensation, gait abnormalities, or tremors. ENT: No hearing loss, otalgia, otorrhea, rhinitis, rhinorrhea, hoarseness, or sore throat. CARDIOVASCULAR: Denies any exertional angina, dyspnea on exertion, orthopnea, paroxysmal nocturnal dyspnea, palpitations, life-threatening arrhythmias, cla udication. PULMONARY: Denies any , cough, phlegm/sputum, hemoptysis, pleuritic chest pain. Complains of shortness of breaths SLEEP: Denies morning headaches, daytime somnolence or napping. Denies difficulty falling asleep, staying asleep, waking from sleep. Denies knowledge of snoring. GASTROINTESTINAL: Denies any type of dysphagia to either liquids or solids. Denies nausea, vomiting, pyrosis, early satiety, abdominal pain, diarrhea, constipation, or changes in stool consistency or caliber. Denies coffee-ground emesis, hematemesis, hematochezia, or melanotic stools. GENITOURINARY: Denies frequency, urgency, nocturia, hematuria or incontinence (Storage/Irritative symptoms.) Low urinary stream, straining to void, urinary intermittency or hesitancy, splitting of the voiding stream, terminal dribbling. ENDOCRINOLOGIC: Denies polyuria, polydipsia, polyphagia or heat/cold intolerances. HEMATOLOGIC: Denies thrombophilia/previous clots, or coagulopathy/bleeding di sorders. ONCOLOGIC: Denies personal history of malignancy. DERMATOLOGIC: Denies rashes or pruritus. PSYCHIATRIC: Denies any suicidal or homicidal ideation. Denies hallucinations. PHYSICAL EXAM GENERAL APPEARANCE: The patient is awake, alert, and oriented, in no acute cardiopulmonary distress. NEUROLOGICAL: Cranial nerves II-XII grossly intact. Motor is 5/5 in bilateral upper and lower extremities proximal to distal. No sensory deficits. HEENT: Face is symmetric. Pupils are equal and reactive. Extraocular movements are intact. NECK: Supple. No JVD. No thyromegaly. No submental, submandibular, pre- /postauricular, occipital or supraclavicular lymphadenopathy. CHEST: Normal chest expansion. No Telemetry. LUNGS: Absence of any rales, rhonchi or any wheezing. CARDIOVASCULAR: Regular. S1 and S2 normal. No appreciable rubs, murmurs or gallops. ABDOMEN: Soft, nontender, and nondistended. There is no rebound, voluntary guarding, or rigidity. : Deferred. No Espinosa. EXTREMITIES: Non-edematous and not cyanotic. No clubbing. Good capillary refill. SKIN: No skin breakdown. Vital Signs (last 8hr) Date Time Temp Pulse Resp B/P (MAP) Pulse Ox O2 Delivery O2 Flow Rate FiO2 02/04/25 08:00 98.6 121 20 120/71 Nasal Cannula 2.0 02/04/25 04:00 98.1 104 24 134/73 96 Nasal Cannula 2.0 LABS: Laboratory: Test 02/04/25 11:13 02/03/25 05:44 02/02/25 22:45 Range/Units Whole Blood Glucose 100 70-110 MG/DL White Blood Count 9.1 4.8-10.8 K/uL Red Blood Count 2.35 L 4.50-6.20 MIL/uL Hemoglobin 8.2 L 14.0-18.0 g/dL Hematocrit 24.5 L 42-54 % Mean Corpuscular Volume 104.3 H 79-99 fL Mean Corpuscular Hemoglobin 34.9 H 27.0-33.0 pg Mean Corpuscular Hemoglobin Concent 33.5 32.0-36.0 g/dL Red Cell Distribution Width 16.3 H 11.0-15.5 % Platelet Count 212 130-400 K/uL Mean Platelet Volume 8.2 7.5-10.5 fL Immature Granulocyte % (Auto) 0.3 0-1 % Neutrophils (%) (Auto) 69.8 40.0-77.0 % Lymphocytes (%) (Auto) 18.6 L 21.0-51.0 % Monocytes (%) (Auto) 8.8 3.0-13.0 % Eosinophils (%) (Auto) 2.0 0.0-8.0 % Basophils (%) (Auto) 0.5 0.0-5.0 % Neutrophils # (Auto) 6.4 1.8-7.7 K/uL Lymphocytes # (Auto) 1.7 1.0-4.8 K/uL Monocytes # (Auto) 0.8 0.1-1.0 K/uL Eosinophils # (Auto) 0.18 0.00-0.70 K/uL Basophils # (Auto) 0.05 0.00-0.20 K/uL Absolute Immature Granulocyte (auto 0.03 0-1 K/uL Nucleated Red Blood Cells 0.0 0.0-0.19 % Sodium Level 130 L 136-145 mmol/L Potassium Level 3.5 3.5-5.1 mmol/L Chloride Level 97 L 101-111 mmol/L Carbon Dioxide Level 26 21-32 mmol/L Blood Urea Nitrogen 8 7-18 mg/dL Creatinine 0.7 0.5-1.3 mg/dL Glomerular Filtration Rate Calc 111 >90 mL/min Random Glucose 88 70-105 mg/dL Lactic Acid Level 1.1 0.8-2.5 mmol/L Total Calcium 7.2 L 8.5-10.1 mg/dL Magnesium Level 1.50 L 1.80-2.40 mg/dL Total Bilirubin 1.3 H 0.2-1.0 mg/dL Aspartate Amino Transf (AST/SGOT) 36 10-37 U/L Alanine Aminotransferase (ALT/SGPT) 14 12-78 U/L Alkaline Phosphatase 261 H 50-136 U/L Ammonia 40 H 11-32 umol/L Total Creatine Kinase 28 21-232 U/L B-Type Natriuretic Peptide 92 0-100 pg/mL Total Protein 5.6 L 6.0-8.3 g/dL Albumin 1.6 L 3.5-5.0 g/dL Amylase Level 61 25-115 U/L Lipase 48 16-77 U/L Procalcitonin < 0.05 L 0.05-0.5 ng/mL Thyroid Stimulating Hormone (TSH) 0.89 # 0.36-3.74 uIU/mL Free Thyroxine (T4) Direct 1.39 0.76-1.46 ng/dL Free Triiodothyronine (T3) pg/mL 1.34 L 2.18-3.98 pg/mL Prothrombin Time 14.0 H 9.6-11.6 SEC Prothromb Time International Ratio 1.36 H 0.85-1.15 Current Medications Medications (Trade) Dose Ordered Sig/Ronak Route PRN Reason Start Time Stop Time Status Last Admin Dose Admin Acetaminophen (TYLenol 325MG TAB) 650 mg Q4H PRN PO MILD PAIN (1-3) 02/02/25 07:00 03/04/25 06:59 Acetaminophen (TYLenol 325MG TAB) 650 mg Q6H PRN PO MILD PAIN (1-3) 02/02/25 07:00 02/02/25 07:05 DC Acetaminophen (TYLenol 325MG TAB) 650 mg Q6H PRN PO TEMPERATURE GREATER THAN 101.5 02/02/25 07:00 03/04/25 06:59 Acetaminophen/ Hydrocodone Bitart (NORco 5/325MG) 1 tab Q6H PRN PO MODERATE PAIN (4-6) 02/02/25 07:00 02/07/25 06:59 Al Hydroxide/Mg Hydroxide (MAALox PLUS 30ML) 30 ml Q6H PRN PO INDIGESTION 02/02/25 07:00 03/04/25 06:59 Albumin Human 100 ml @ 100 mls/hr AD IV 02/04/25 09:00 02/14/25 08:59 02/04/25 09:37 100 MLS/HR Dextrose (D50w) 50 ml AD PRN IV HYPOGLYCEMIA PROTOCOL 02/02/25 07:00 02/03/25 07:51 DC Dextrose (D50w) 50 ml AD PRN IV HYPOGLYCEMIA PROTOCOL 02/03/25 08:00 03/05/25 07:59 Diphenhydramine HCl (BENAdryl INJ) 25 mg Q6H PRN IV SEVERE ITCHING/RASH 02/02/25 07:00 03/04/25 06:59 Famotidine (Pepcid 20mg Vial) 20 mg BID IV 02/02/25 09:00 03/04/25 08:59 02/04/25 09:53 20 MG Famotidine (Pepcid 20mg Vial) 20 mg BID PRN IV NAUSEA/VOMITING 02/02/25 07:00 02/02/25 07:05 DC Furosemide (LASix 40MG TAB) 40 mg DAILY PO 02/03/25 09:00 02/02/25 10:15 DC Furosemide (LASix 40MG VIAL) 40 mg BID IVP 02/02/25 09:00 03/04/25 08:59 02/04/25 09:53 40 MG Glucagon (Glucagon 1mg Kit) 1 mg AD PRN IM HYPOGLYCEMIA PROTOCOL 02/02/25 07:00 02/03/25 07:52 DC Glucagon (Glucagon 1mg Kit) 1 mg AD PRN IM HYPOGLYCEMIA PROTOCOL 02/03/25 08:00 03/05/25 07:59 Guaifenesin/ Dextromethorphan (RobiTUSSin DM 200/20MG 10ML) 10 ml Q4H PRN PO COUGH 02/02/25 07:00 03/04/25 06:59 02/02/25 17:30 10 ML Heparin Sodium (Porcine) (HEParin 5,000 UNIT VIAL) 5,000 unit Q12H SQ 02/02/25 09:00 03/04/25 08:59 02/04/25 09:55 5,000 UNIT Hydralazine HCl (APRESOLine 20MG INJ) 10 mg Q6H PRN IV For:SBP above 160;DBP above 90 02/02/25 07:00 03/04/25 06:59 Insulin Human Regular (humuLIN R 100 UNIT/ML 3ML) INSULIN SLIDING SCAL... ACHS SQ 02/02/25 07:30 03/04/25 07:29 Ketorolac Tromethamine (toRADol) 15 mg Q8H PRN IV MODERATE PAIN (4-6) 02/02/25 07:00 02/02/25 07:05 DC Lactulose (Constulose 20gm/ 30ml Udcup) 20 gm BID PO 02/02/25 21:00 03/04/25 20:59 02/04/25 09:53 20 GM Lactulose (Constulose 20gm/ 30ml Udcup) 20 gm BID PRN PO CONSTIPATION 02/02/25 07:00 03/04/25 06:59 Magnesium Sulfate 50 ml @ 0 mls/hr PROTOCOL IV 02/03/25 12:00 03/05/25 11:59 02/03/25 16:44 25 MLS/HR Magnesium Sulfate 50 ml @ 0 mls/hr PROTOCOL PRN IV other 02/02/25 07:00 02/03/25 11:49 DC Morphine Sulfate (morPHINE 2MG SYG) 1 mg Q4H PRN IVP SEVERE PAIN (7-10) 02/02/25 07:00 02/09/25 06:59 02/03/25 03:20 1 MG Multivitamins/ Minerals (Centrum) 1 tab DAILY PO 02/03/25 09:00 03/05/25 08:59 02/04/25 09:53 1 TAB Nitroglycerin (Nitrostat) 0.4 mg PROTOCOL PRN SL CHEST PAIN 02/02/25 07:00 03/04/25 06:59 Ondansetron HCl (zoFRAN 4MG INJ) 4 mg Q6H PRN IV NAUSEA/VOMITING 02/02/25 07:00 03/04/25 06:59 Oxycodone/ Acetaminophen (perCOCET) 1 tab Q6H PRN PO SEVERE PAIN (7-10) 02/02/25 07:00 02/04/25 07:07 DC 02/03/25 13:00 1 TAB Piperacillin Sod/ Tazobactam Sod 50 ml @ 12.5 mls/hr Q8H IV 02/02/25 13:00 02/12/25 12:59 02/04/25 05:16 12.5 MLS/HR Potassium Chloride 100 ml @ 100 mls/hr AD PRN IV POTASSIUM PROTOCOL 02/02/25 07:00 03/04/25 06:59 Potassium Chloride (K-Dur/Klor-Con 20meq) 20 meq AD PRN PO POTASSIUM PROTOCOL 02/02/25 07:00 03/04/25 06:59 02/03/25 08:47 20 MEQ Potassium Chloride (KCl 10% Elixir 20meq/15ml) 20 meq AD PRN PO POTASSIUM PROTOCOL 02/02/25 07:00 03/04/25 06:59 02/03/25 23:41 20 MEQ Spironolactone (Aldactone 25mg) 100 mg DAILY PO 02/03/25 09:00 03/05/25 08:59 02/04/25 09:53 100 MG Thiamine HCl (Vitamin B-1) 100 mg DAILY PO 02/03/25 09:00 03/05/25 08:59 02/04/25 09:53 100 MG Zolpidem Tartrate (AmbIEN) 5 mg HS PRN PO INSOMNIA 02/02/25 07:00 03/04/25 06:59 DIAGNOSTICS / RADIOLOGY: [ ] ASSESSMENT: [ Acute sepsis POA Large pleural effusion per chest x-ray and CT chest POA Large ascites in the abdomen per CT chest Alcoholic liver cirrhosis s/p multiple paracentesis POA Electrolyte imbalance hyponatremia Na 129 POA Multifactorial anemia POA Leukocytosis WBC 10.7 POA Cough POA ] PLAN: [At this moment they recommend to continue with furosemide and spironolactone and do paracentesis 1st. At this moment we do not have IR in the building. We will continue to monitor patient in the meantime. A.m. labs. Patient updated with the further plan and recommendations Chest x-ray showed moderate right pleural effusion. CT chest showed large right pleural effusion/atelectasis and large ascites in the abdomen. 2D echo showed EF of more than 60% normal function. As per patient he sees Dr. Stephanie MONSON and his neck is appointment for the paracentesis is on Friday02/11/2025 at 5:00 p.m.. Hyper hypoglycemia protocol Hypokalemia protocol Hypomagnesemia protocol I's and O's Q shift Blood culture pending Daily weights PRN medications Blood culture pending A.m. labs GI soft diet PT evaluation Case management evaluation Patient placed on Zosyn antibiotics ] ATTESTATION BY PHYSICIAN I have seen and examined the patient. I reviewed the documentation, medical decision making, and treatment plan as noted by the mid-level provider above. I agree with the findings and plan of care. Yelena Richardson MD, [employer] Feb 04, 2025 11:23
--- NOTE | 2025-02-04 16:35 | PRN ---
After informed consent was obtained and explained to the patient about the procedure complications include but not all bleeding viscus perforation pain discomfort among other with ultrasound guidance under local anesthesia with 1% lidocaine two attempts in the left lower quadrant for paracentesis were performed was able to obtain freely flowing fluid through the needle but after advancing the five Estonian catheter twice no adequate return was obtained for which the procedure was aborted. Patient tolerated the procedure well the site was dressed. In sterile fashion Will require retry of paracentesis with Radiology was a larger then five Estonian catheter once possible. THA SHAH MD Feb 04, 2025 16:35
[2025-02-05] VITALS (7 sets, daily range): BP systolic 115–153; BP diastolic 66–89; PULSE 115–124; RESP 16–22; TEMP 98.2–99; O2SAT 95–98
[2025-02-05 04:58] LABS: IMMATURE GRANULOCYTE ABSOLUTE 0.03 K/uL (0-1); NUCLEATED RED BLOOD CELLS 0.0 % (0.0-0.19); PLATELET COUNT (AUTO) 180 K/uL (130-400); RED BLOOD CELL COUNT(AUTO) 2.21 MIL/uL (4.50-6.20); RED CELL DISTRIBUTION WIDTH 15.6 % (11.0-15.5); WHITE BLOOD COUNT (AUTO) 9.0 K/uL (4.8-10.8)
[2025-02-05 05:08] LABS: ASPARTATE AMINOTRANSFERASE 31.0 U/L (10-37); CREATININE 0.7 mg/dL (0.5-1.3); GLOMERULAR FILTR. RATE CALC 111.0 mL/min (>90); GLUCOSE,RANDOM 121.0 mg/dL (70-105); SODIUM SERUM 130.0 mmol/L (136-145); TOTAL PROTEIN, SERUM 5.6 g/dL (6.0-8.3); UREA NITROGEN, BLOOD 6.0 mg/dL (7-18)
[2025-02-05] MEDS ORDERED: MAGNESIUM 2GM PREMIX 50ML 50 ML IV SCH (07:00)
--- NOTE | 2025-02-05 09:10 | PN ---
[facility] PROGRESS NOTE Date Patient Seen: Feb 05, 2025 Time of Visit: 09:09 Supervising Physician: Dr. Morgan Primary Care Physician: [ ] Outpatient Specialists: [ ] Inpatient Consults: [ ] PROBLEM LIST: Acute sepsis POA Large Ascites Large pleural effusion per chest x-ray and CT chest POA -s/p thoracentesis on 02/05/25 Alcoholic liver cirrhosis s/p multiple paracentesis POA Electrolyte imbalance hyponatremia Na 129 POA Multifactorial anemia POA Leukocytosis WBC 10.7 POA Cough POA INTERVAL HISTORY: Patient evaluated at bedside today, he currently remains on nasal cannula. Following successful paracentesis yesterday with a five Egyptian catheter, a bedside thoracentesis was performed today with a an eight Egyptian catheter, to discuss nature of the patient's fluid wall so she was necessary to complete the procedure, total of 800 mL was drained, and was not sent to laboratory secondary to patient's recurrent effusions and ascites. Pending postprocedural chest x- ray at this time. Per chart review patient is on room air now. We will continue to follow closely, he is pending CT-guided paracentesis with IR on Friday. REVIEW OF SYSTEMS: 12 point ROS reviewed with patient. Pertinent positives mentioned above. Otherwise negative. PHYSICAL EXAM: GENERAL: alert, weak, awake oriented x 3 HEENT: EOMI, Sclera non icteric, moist mucosa NECK: Supple, no JVD, trachea midline LUNGS: Clear breath sounds bilaterally. No wheezes HEART: Regular rate and rhythm. Normal S1 and S2, without murmurs ABD: Abdomen soft, nontender. Bowel sounds present EXT: No clubbing cyanosis or edema NEURO: Alert and oriented to person, follows commands Vital Signs (last 8hr) Date Time Temp Pulse Resp B/P (MAP) Pulse Ox O2 Delivery O2 Flow Rate FiO2 02/05/25 08:00 98.8 118 22 135/89 95 Nasal Cannula 2.0 02/05/25 04:08 98.2 119 16 134/86 94 Room Air LABS: Hematology Labs: Test 02/05/25 04:43 Range/Units White Blood Count 9.0 4.8-10.8 K/uL Red Blood Count 2.21 L 4.50-6.20 MIL/uL Hemoglobin 7.6 L 14.0-18.0 g/dL Hematocrit 23.5 L 42-54 % Mean Corpuscular Volume 106.3 H 79-99 fL Mean Corpuscular Hemoglobin 34.4 H 27.0-33.0 pg Mean Corpuscular Hemoglobin Concent 32.3 32.0-36.0 g/dL Red Cell Distribution Width 15.6 H 11.0-15.5 % Platelet Count 180 130-400 K/uL Mean Platelet Volume 7.9 7.5-10.5 fL Immature Granulocyte % (Auto) 0.3 0-1 % Neutrophils (%) (Auto) 62.8 40.0-77.0 % Lymphocytes (%) (Auto) 24.2 21.0-51.0 % Monocytes (%) (Auto) 9.9 3.0-13.0 % Eosinophils (%) (Auto) 2.5 0.0-8.0 % Basophils (%) (Auto) 0.3 0.0-5.0 % Neutrophils # (Auto) 5.6 1.8-7.7 K/uL Lymphocytes # (Auto) 2.2 1.0-4.8 K/uL Monocytes # (Auto) 0.9 0.1-1.0 K/uL Eosinophils # (Auto) 0.22 0.00-0.70 K/uL Basophils # (Auto) 0.03 0.00-0.20 K/uL Absolute Immature Granulocyte (auto 0.03 0-1 K/uL Nucleated Red Blood Cells 0.0 0.0-0.19 % Chemistry Labs: Test 02/05/25 05:01 02/05/25 04:43 Range/Units Whole Blood Glucose 148 H 70-110 MG/DL Sodium Level 130 L 136-145 mmol/L Potassium Level 4.0 3.5-5.1 mmol/L Chloride Level 98 L 101-111 mmol/L Carbon Dioxide Level 26 21-32 mmol/L Blood Urea Nitrogen 6 L 7-18 mg/dL Creatinine 0.7 0.5-1.3 mg/dL Glomerular Filtration Rate Calc 111 >90 mL/min Random Glucose 121 H 70-105 mg/dL Total Calcium 7.4 L 8.5-10.1 mg/dL Magnesium Level 1.70 L 1.80-2.40 mg/dL Total Bilirubin 0.8 0.2-1.0 mg/dL Aspartate Amino Transf (AST/SGOT) 31 10-37 U/L Alanine Aminotransferase (ALT/SGPT) 13 12-78 U/L Alkaline Phosphatase 235 H 50-136 U/L Total Protein 5.6 L 6.0-8.3 g/dL Albumin 1.7 L 3.5-5.0 g/dL DIAGNOSTICS / RADIOLOGY RESULTS: [ ] PLAN NEURO: Minimize central acting medications as possible. Maintain fall precautions, adequate lighting during the day PULMONARY: Supplemental 02 as needed. Maintain aspiration precautions at all times CARDIOVASCULAR: Follow hemodynamics. Vital signs per facility protocol GI & NUTRITION: Continue with nutritional support. Continue stool softeners and laxatives as needed. KIDNEYS & ELECTROLYTES: Strict monitoring of intake, output and overall fluid balance. Avoid nephrotoxic medications to the extent possible. Medications to be dosed according to renal function. Monitor electrolytes and replace as needed ENDOCRINE: Maintain blood glucose between 100-180 at all times. Hypoglycemia protocol in place INFECTIOUS DISEASE: Trend temperature, WBC and procalcitonin level Follow cultures, deescalate antibiotics as soon as possible. Panculture if new onset fever ONCOLOGY/HEMATOLOGY/COAGULATION: Monitor for s/s of bleeding Monitor hemoglobin, coagulation studies as needed SKIN: Pressure ulcer prevention per facility protocol Specialty mattress ORTHO/REHAB: Continue PT/OT Prophylaxis: Continue GI and DVT prophylaxis Code Status: Full Resuscitation Disposition: TBD Other: Total patient care time exceeds 35 minutes excluding all procedures. GLENN ATKINS PAC Feb 05, 2025 09:10
--- NOTE | 2025-02-05 11:41 | PN ---
[facility] PROGRESS NOTE Date of Service: Feb 05, 2025 Time of Service: 11:37 Dr. Lopez SUBJECTIVE: [ 02/02 Patient is54 years old male with a past medical history of alcoholic cirrhosis of liver, multiple recurrent ascites s/p paracentesis, portal gastropathy, hyponatremia and pleural effusion who came to emergency department with a complaint of shortness of breaths, vomiting, progressive cough for the past three days. Patient stated that recently he was discharged on 01/25/2025 where he was diagnosed with moderate to large pleural effusion] Most recent vital signs temperature 99.9 pulse 106 respirations 16 blood pressure 110/75 patient is on room air satting 100%. WBC 10.7 Hemoglobin 8.2 hematocrit 25platelets 191 , urinalysis negative. Influenza A negative influenza B negative COVID negative. Toxicology negative. Sodium 129 potassium 4.0 CO2 26 BUN nine creatinine 0.7 [id number] lactic 1.8 ammonia 42. Chest x-ray showed moderate right pleural effusion with lung atelectasis no evidence of pneumothorax. Chest CT showed large right-sided pleural effusion which is causing atelectasis of the right lower lung. There is a tips shunt in place. 2D echo more than 65% left ventricle diastolic function is normal. We consulted block captain for further evaluation/recommendation. Patient is pending thoracentesis on 02/02/2025. Patient will be admitted under hospitalist care for further evaluation/recommendation. 02/03 patient was seen by nurse practitioner and physician during rounding in room 319. Chest x-ray showed moderate right pleural effusion. CT chest showed large right pleural effusion/atelectasis and large ascites in the abdomen. 2D echo showed EF of more than 60% normal function. Patient is pending thoracentesis as per block captain. We will also order IR for the paracentesis for large ascites in the abdomen. As per patient he sees Dr. Stephanie MONSON and his neck is appointment for the paracentesis is on Friday02/11/2025 at 5:00 p.m.. At this moment we will continue to monitor patient in the meantime. A.m. labs. 02/04/25 patient was seen by CHILD CARE EDUCATION COORDINATOR and physician. Pile Operator was unable to perform thoracentesis. At this moment they recommend to continue with furosemide and spironolactone and do paracentesis 1st. At this moment we do not have IR in the building. We will continue to monitor patient in the meantime. A.m. labs. Patient updated with the further plan and recommendations 02/05/25 patient was seen by nurse practitioner and physician during rounding in room 319. Dr. Persaud from pulmonology, attention to do thoracentesis yesterday 02/04/2025 unfortunately procedure was unsuccessful. We will order IR for thoracentesis and IR for paracentesis for Friday02/07/2025. Continue furosemide 40 mg IV push b.i.d. and spironolactone in the meantime. Continue to monitor patient in the meantime. A.m. labs] REVIEW OF SYSTEMS CONSTITUTIONAL: Denies fevers, chills, or night sweats. No unintentional weight loss reported. NEUROLOGICAL: Denies headache, amaurosis fugax, motor weakness, sensory deficit, vertigo/spinning sensation, gait abnormalities, or tremors. ENT: No hearing loss, otalgia, otorrhea, rhinitis, rhinorrhea, hoarseness, or sore throat. CARDIOVASCULAR: Denies any exertional angina, dyspnea on exertion, orthopnea, paroxysmal nocturnal dyspnea, palpitations, life-threatening arrhythmias, claudication. PULMONARY: Denies any , cough, phlegm/sputum, hemoptysis, pleuritic chest pain. Complains of shortness of breaths SLEEP: Denies morning headaches, daytime somnolence or napping. Denies difficulty falling asleep, staying asleep, waking from sleep. Denies knowledge of snoring. GASTROINTESTINAL: Denies any type of dysphagia to either liquids or solids. Denies nausea, vomiting, pyrosis, early satiety, abdominal pain, diarrhea, constipation, or changes in stool consistency or caliber. Denies coffee-ground emesis, hematemesis, hematochezia, or melanotic stools. GENITOURINARY: Denies frequency, urgency, nocturia, hematuria or incontinence (Storage/Irritative symptoms.) Low urinary stream, straining to void, urinary intermittency or hesitancy, splitting of the voiding stream, terminal dribbling. ENDOCRINOLOGIC: Denies polyuria, polydipsia, polyphagia or heat/cold intolerances. HEMATOLOGIC: Denies thrombophilia/previous clots, or coagulopathy/bleeding disorders. ONCOLOGIC: Denies personal history of malignancy. DERMATOLOGIC: Denies rashes or pruritus. PSYCHIATRIC: Denies any suicidal or homicidal ideation. Denies hallucinations. PHYSICAL EXAM GENERAL APPEARANCE: The patient is awake, alert, and oriented, in no acute cardiopulmonary distress. NEUROLOGICAL: Cranial nerves II-XII grossly intact. Motor is 5/5 in bilateral upper and lower extremities proximal to distal. No sensory deficits. HEENT: Face is symmetric. Pupils are equal and reactive. Extraocular movements are intact. NECK: Supple. No JVD. No thyromegaly. No submental, submandibular, pre- /postauricular, occipital or supraclavicular lymphadenopathy. CHEST: Normal chest expansion. No Telemetry. LUNGS: Absence of any rales, rhonchi or any wheezing. CARDIOVASCULAR: Regular. S1 and S2 normal. No appreciable rubs, murmurs or gallops. ABDOMEN: Soft, nontender, and nondistended. There is no rebound, voluntary guarding, or rigidity. : Deferred. No Espinosa. EXTREMITIES: Non-edematous and not cyanotic. No clubbing. Good capillary refill. SKIN: No skin breakdown. Vital Signs (last 8hr) Date Time Temp Pulse Resp B/P (MAP) Pulse Ox O2 Delivery O2 Flow Rate FiO2 02/05/25 08:00 98.8 118 22 135/89 95 Nasal Cannula 2.0 02/05/25 04:08 98.2 119 16 134/86 94 Room Air LABS: Laboratory: Test 02/05/25 11:18 02/05/25 04:43 Range/Units Whole Blood Glucose 117 H 70-110 MG/DL White Blood Count 9.0 4.8-10.8 K/uL Red Blood Count 2.21 L 4.50-6.20 MIL/uL Hemoglobin 7.6 L 14.0-18.0 g/dL Hematocrit 23.5 L 42-54 % Mean Corpuscular Volume 106.3 H 79-99 fL Mean Corpuscular Hemoglobin 34.4 H 27.0-33.0 pg Mean Corpuscular Hemoglobin Concent 32.3 32.0-36.0 g/dL Red Cell Distribution Width 15.6 H 11.0-15.5 % Platelet Count 180 130-400 K/uL Mean Platelet Volume 7.9 7.5-10.5 fL Immature Granulocyte % (Auto) 0.3 0-1 % Neutrophils (%) (Auto) 62.8 40.0-77.0 % Lymphocytes (%) (Auto) 24.2 21.0-51.0 % Monocytes (%) (Auto) 9.9 3.0-13.0 % Eosinophils (%) (Auto) 2.5 0.0-8.0 % Basophils (%) (Auto) 0.3 0.0-5.0 % Neutrophils # (Auto) 5.6 1.8-7.7 K/uL Lymphocytes # (Auto) 2.2 1.0-4.8 K/uL Monocytes # (Auto) 0.9 0.1-1.0 K/uL Eosinophils # (Auto) 0.22 0.00-0.70 K/uL Basophils # (Auto) 0.03 0.00-0.20 K/uL Absolute Immature Granulocyte (auto 0.03 0-1 K/uL Nucleated Red Blood Cells 0.0 0.0-0.19 % Sodium Level 130 L 136-145 mmol/L Potassium Level 4.0 3.5-5.1 mmol/L Chloride Level 98 L 101-111 mmol/L Carbon Dioxide Level 26 21-32 mmol/L Blood Urea Nitrogen 6 L 7-18 mg/dL Creatinine 0.7 0.5-1.3 mg/dL Glomerular Filtration Rate Calc 111 >90 mL/min Random Glucose 121 H 70-105 mg/dL Total Calcium 7.4 L 8.5-10.1 mg/dL Magnesium Level 1.70 L 1.80-2.40 mg/dL Total Bilirubin 0.8 0.2-1.0 mg/dL Aspartate Amino Transf (AST/SGOT) 31 10-37 U/L Alanine Aminotransferase (ALT/SGPT) 13 12-78 U/L Alkaline Phosphatase 235 H 50-136 U/L Total Protein 5.6 L 6.0-8.3 g/dL Albumin 1.7 L 3.5-5.0 g/dL Current Medications Medications (Trade) Dose Ordered Sig/Ronak Route PRN Reason Start Time Stop Time Status Last Admin Dose Admin Acetaminophen (TYLenol 325MG TAB) 650 mg Q4H PRN PO MILD PAIN (1-3) 02/02/25 07:00 03/04/25 06:59 Acetaminophen (TYLenol 325MG TAB) 650 mg Q6H PRN PO MILD PAIN (1-3) 02/02/25 07:00 02/02/25 07:05 DC Acetaminophen (TYLenol 325MG TAB) 650 mg Q6H PRN PO TEMPERATURE GREATER THAN 101.5 02/02/25 07:00 03/04/25 06:59 Acetaminophen/ Hydrocodone Bitart (NORco 5/325MG) 1 tab Q6H PRN PO MODERATE PAIN (4-6) 02/02/25 07:00 02/07/25 06:59 Al Hydroxide/Mg Hydroxide (MAALox PLUS 30ML) 30 ml Q6H PRN PO INDIGESTION 02/02/25 07:00 03/04/25 06:59 Albumin Human 100 ml @ 100 mls/hr AD IV 02/04/25 09:00 02/14/25 08:59 02/04/25 09:37 100 MLS/HR Dextrose (D50w) 50 ml AD PRN IV HYPOGLYCEMIA PROTOCOL 02/02/25 07:00 02/03/25 07:51 DC Dextrose (D50w) 50 ml AD PRN IV HYPOGLYCEMIA PROTOCOL 02/03/25 08:00 03/05/25 07:59 Diphenhydramine HCl (BENAdryl INJ) 25 mg Q6H PRN IV SEVERE ITCHING/RASH 02/02/25 07:00 03/04/25 06:59 Famotidine (Pepcid 20mg Vial) 20 mg BID IV 02/02/25 09:00 03/04/25 08:59 02/05/25 09:38 20 MG Famotidine (Pepcid 20mg Vial) 20 mg BID PRN IV NAUSEA/VOMITING 02/02/25 07:00 02/02/25 07:05 DC Furosemide (LASix 40MG TAB) 40 mg DAILY PO 02/03/25 09:00 02/02/25 10:15 DC Furosemide (LASix 40MG VIAL) 40 mg BID IVP 02/02/25 09:00 03/04/25 08:59 02/05/25 09:39 40 MG Glucagon (Glucagon 1mg Kit) 1 mg AD PRN IM HYPOGLYCEMIA PROTOCOL 02/02/25 07:00 02/03/25 07:52 DC Glucagon (Glucagon 1mg Kit) 1 mg AD PRN IM HYPOGLYCEMIA PROTOCOL 02/03/25 08:00 03/05/25 07:59 Guaifenesin/ Dextromethorphan (RobiTUSSin DM 200/20MG 10ML) 10 ml Q4H PRN PO COUGH 02/02/25 07:00 03/04/25 06:59 02/02/25 17:30 10 ML Heparin Sodium (Porcine) (HEParin 5,000 UNIT VIAL) 5,000 unit Q12H SQ 02/02/25 09:00 03/04/25 08:59 02/05/25 09:55 5,000 UNIT Hydralazine HCl (APRESOLine 20MG INJ) 10 mg Q6H PRN IV For:SBP above 160;DBP above 90 02/02/25 07:00 03/04/25 06:59 Insulin Human Regular (humuLIN R 100 UNIT/ML 3ML) INSULIN SLIDING SCAL... ACHS SQ 02/02/25 07:30 03/04/25 07:29 Ketorolac Tromethamine (toRADol) 15 mg Q8H PRN IV MODERATE PAIN (4-6) 02/02/25 07:00 02/02/25 07:05 DC Lactulose (Constulose 20gm/ 30ml Udcup) 20 gm BID PO 02/02/25 21:00 03/04/25 20:59 02/05/25 09:40 20 GM Lactulose (Constulose 20gm/ 30ml Udcup) 20 gm BID PRN PO CONSTIPATION 02/02/25 07:00 03/04/25 06:59 Magnesium Sulfate 50 ml @ 0 mls/hr PROTOCOL IV 02/03/25 12:00 03/05/25 11:59 02/03/25 16:44 25 MLS/HR Magnesium Sulfate 50 ml @ 0 mls/hr PROTOCOL IV 02/05/25 07:00 02/05/25 06:43 DC Magnesium Sulfate 50 ml @ 0 mls/hr PROTOCOL PRN IV other 02/02/25 07:00 02/03/25 11:49 DC Morphine Sulfate (morPHINE 2MG SYG) 1 mg Q4H PRN IVP SEVERE PAIN (7-10) 02/02/25 07:00 02/04/25 11:47 DC 02/03/25 03:20 1 MG Morphine Sulfate (morPHINE 2MG SYG) 2 mg Q4H PRN IVP SEVERE PAIN (7-10) 02/04/25 15:00 02/11/25 14:59 Multivitamins/ Minerals (Centrum) 1 tab DAILY PO 02/03/25 09:00 03/05/25 08:59 02/05/25 09:38 1 TAB Nitroglycerin (Nitrostat) 0.4 mg PROTOCOL PRN SL CHEST PAIN 02/02/25 07:00 03/04/25 06:59 Ondansetron HCl (zoFRAN 4MG INJ) 4 mg Q6H PRN IV NAUSEA/VOMITING 02/02/25 07:00 03/04/25 06:59 Oxycodone/ Acetaminophen (perCOCET) 1 tab Q6H PRN PO SEVERE PAIN (7-10) 02/02/25 07:00 02/04/25 07:07 DC 02/03/25 13:00 1 TAB Piperacillin Sod/ Tazobactam Sod 50 ml @ 12.5 mls/hr Q8H IV 02/02/25 13:00 02/12/25 12:59 02/05/25 06:09 12.5 MLS/HR Potassium Chloride 100 ml @ 100 mls/hr AD PRN IV POTASSIUM PROTOCOL 02/02/25 07:00 03/04/25 06:59 Potassium Chloride (K-Dur/Klor-Con 20meq) 20 meq AD PRN PO POTASSIUM PROTOCOL 02/02/25 07:00 03/04/25 06:59 02/03/25 08:47 20 MEQ Potassium Chloride (KCl 10% Elixir 20meq/15ml) 20 meq AD PRN PO POTASSIUM PROTOCOL 02/02/25 07:00 03/04/25 06:59 02/03/25 23:41 20 MEQ Spironolactone (Aldactone 25mg) 100 mg DAILY PO 02/03/25 09:00 03/05/25 08:59 02/05/25 09:38 100 MG Thiamine HCl (Vitamin B-1) 100 mg DAILY PO 02/03/25 09:00 03/05/25 08:59 02/05/25 09:38 100 MG Trazodone HCl (DesyREL/OlepTRO) 50 mg HS PO 02/05/25 21:00 03/07/25 20:59 Zolpidem Tartrate (AmbIEN) 5 mg HS PRN PO INSOMNIA 02/02/25 07:00 03/04/25 06:59 DIAGNOSTICS / RADIOLOGY: [ ] ASSESSMENT: [ Acute sepsis POA Large pleural effusion per chest x-ray and CT chest POA Large ascites in the abdomen per CT chest Alcoholic liver cirrhosis s/p multiple paracentesis POA Electrolyte imbalance hyponatremia Na 129 POA Multifactorial anemia POA Leukocytosis WBC 10.7 POA Cough POA ] PLAN: Dr. Persaud from pulmonology, attention to do thoracentesis yesterday 02/04/2025 unfortunately procedure was unsuccessful. We will order IR for thoracentesis and IR for paracentesis for Friday02/07/2025. Continue furosemide 40 mg IV push b.i.d. and spironolactone in the meantime. Continue to monitor patient in the meantime. A.m. labs Chest x-ray showed moderate right pleural effusion. CT chest showed large right pleural effusion/atelectasis and large ascites in the abdomen. 2D echo showed EF of more than 60% normal function. As per patient he sees Dr. Stephanie MONSON and his neck is appointment for the paracentesis is on Friday02/11/2025 at 5:00 p.m.. Hyper hypoglycemia protocol Hypokalemia protocol Hypomagnesemia protocol I's and O's Q shift Blood culture pending Daily weights PRN medications Blood culture pending A.m. labs GI soft diet PT evaluation Case management evaluation Patient placed on Zosyn antibiotics ] ATTESTATION BY PHYSICIAN I have seen and examined the patient. I reviewed the documentation, medical decision making, and treatment plan as noted by the mid-level provider above. I agree with the findings and plan of care. Fly Lopez MD, [facility] Feb 05, 2025 11:41 FLY LOPEZ MD Feb 05, 2025 23:01
--- NOTE | 2025-02-05 14:59 | PRN ---
Procedure performed: Thoracentesis Intraoperative US Body site: Right chest Description of procedure: Consent obtained Time out done Hand hygiene Intraoperative US used to localize pleural fluid and jai the skin at puncture site. Thoracentesis tray used. [800] ml of Pleural fluid drained Fluid is not sent for analysis due to recurrent nature secondary to cirrhosis. Pt tolerated procedure well Post procedure chest x ray was ordered GLENN ATKINS PAC Feb 05, 2025 14:59
[2025-02-05] MEDS: ALBUMIN (HUMAN) 5% 250 ML IV SCH (22:04)
[2025-02-06] VITALS: BP 134/79; PULSE 125; RESP 16; TEMP 98.1
--- NOTE | 2025-02-06 01:03 | HMCIMG ---
STUDY: X-RAY OF THE CHEST, 1 VIEW HISTORY: Status post thoracentesis. TECHNIQUE: A single frontal view of the chest is submitted for interpretation. COMPARISON: Chest radiograph from 02/03/2025 at 5:29 EST. FINDINGS: Pulmonary lance: Persistent moderate right pleural effusion with adjacent right basilar atelectasis, with mild interval increase compared with the prior study. New left lower lobe airspace opacity is present, compatible with developing airspace disease. Cardiac silhouette: Cardiomegaly is not evident; the cardiomediastinal silhouette appears within normal limits, although assessment is mildly limited by patient rotation. Mediastinum and sonia: Mediastinal contours and hilar structures are within normal limits without evident mass or widening. Osseous structures: No acute or aggressive osseous abnormality is identified in the visualized ribs, clavicles, or thoracic spine. Miscellaneous: No radiographic evidence of pneumothorax. IMPRESSION: * Compared with the chest radiograph from 02/03/2025 at 5:29 EST, there is a mild interval increase in the moderate right pleural effusion with associated right basilar atelectasis. Clinical correlation is recommended, and consideration of follow-up imaging should be based on respiratory status. * New left lower lobe airspace disease, which may represent developing pneumonia or atelectasis in this post-thoracentesis setting; correlation with clinical findings and laboratory data is recommended, with follow-up chest imaging to document resolution as clinically indicated. * No radiographic evidence of pneumothorax following thoracentesis. /[place]
[2025-02-06 04:00] VITALS: BP 105/63; PULSE 117; RESP 18; TEMP 98.6
[2025-02-06 04:57] LABS: IMMATURE GRANULOCYTE ABSOLUTE 0.02 K/uL (0-1); NUCLEATED RED BLOOD CELLS 0.0 % (0.0-0.19); PLATELET COUNT (AUTO) 185 K/uL (130-400); RED BLOOD CELL COUNT(AUTO) 2.26 MIL/uL (4.50-6.20); RED CELL DISTRIBUTION WIDTH 15.3 % (11.0-15.5); WHITE BLOOD COUNT (AUTO) 8.3 K/uL (4.8-10.8)
[2025-02-06 05:12] LABS: ASPARTATE AMINOTRANSFERASE 29.0 U/L (10-37); CREATININE 0.7 mg/dL (0.5-1.3); GLOMERULAR FILTR. RATE CALC 111.0 mL/min (>90); GLUCOSE,RANDOM 93.0 mg/dL (70-105); SODIUM SERUM 132.0 mmol/L (136-145); TOTAL PROTEIN, SERUM 6.1 g/dL (6.0-8.3); UREA NITROGEN, BLOOD 9.0 mg/dL (7-18)
[2025-02-06 05:35] LABS: LYMPHOCYTES % (MANUAL) 20 % (22-44); MONOCYTES % (MANUAL) 2 % (2-9); REACTIVE LYMPHOCYTES 7 % (0-0); SEGMENTED NEUTROPHILS % 71 % (40-70)
[2025-02-06 05:36] LABS: MAN.DIFF COMMENT-IMPRESSION MANUAL DIFFERENTIAL; PLATELET MORPHOLOGY COMMENT ADEQUATE
[2025-02-06 08:00] VITALS: BP 135/85; PULSE 116; RESP 18; TEMP 99.5
[2025-02-06] MEDS ORDERED: MAGNESIUM 2GM PREMIX 50ML 50 ML IV SCH (09:00)
--- NOTE | 2025-02-06 09:03 | PN ---
[facility] PROGRESS NOTE Date Patient Seen: Feb 06, 2025 Time of Visit: 09:03 Supervising Physician: Dr. Morgan Primary Care Physician: [ ] Outpatient Specialists: [ ] Inpatient Consults: [ ] PROBLEM LIST: Acute sepsis POA Large Ascites Large pleural effusion per chest x-ray and CT chest POA -s/p thoracentesis on 02/05/25 Alcoholic liver cirrhosis s/p multiple paracentesis POA Electrolyte imbalance hyponatremia Na 129 POA Multifactorial anemia POA Leukocytosis WBC 10.7 POA Cough POA INTERVAL HISTORY: patient evaluated sitting at the edge of his bed today, his son is present at the time, Patient is not in room air for my visit, expresses gratitude for the thoracentesis that was performed yesterday, states that he is breathing a little easier today, At this time, patient continues with abdominal distension secondary to his large volume ascites, He is pending a CT-guided paracentesis tomorrow with interventional radiology, patient has no further questions at this time, the remainder of his treatment plan for primary team REVIEW OF SYSTEMS: 12 point ROS reviewed with patient. Pertinent positives mentioned above. Otherwise negative. PHYSICAL EXAM: GENERAL: alert, weak, awake oriented x 3 HEENT: EOMI, Sclera non icteric, moist mucosa NECK: Supple, no JVD, trachea midline LUNGS: Clear breath sounds bilaterally. No wheezes HEART: Regular rate and rhythm. Normal S1 and S2, without murmurs ABD: Abdomen soft, nontender. Bowel sounds present EXT: No clubbing cyanosis or edema NEURO: Alert and oriented to person, follows commands Vital Signs (last 8hr) Date Time Temp Pulse Resp B/P (MAP) Pulse Ox O2 Delivery O2 Flow Rate FiO2 02/06/25 08:00 99.5 116 18 135/85 94 Nasal Cannula 2.0 02/06/25 04:00 98.6 117 18 105/63 95 Room Air LABS: Hematology Labs: Test 02/06/25 04:46 Range/Units White Blood Count 8.3 4.8-10.8 K/uL Red Blood Count 2.26 L 4.50-6.20 MIL/uL Hemoglobin 7.8 L 14.0-18.0 g/dL Hematocrit 23.6 L 42-54 % Mean Corpuscular Volume 104.4 H 79-99 fL Mean Corpuscular Hemoglobin 34.5 H 27.0-33.0 pg Mean Corpuscular Hemoglobin Concent 33.1 32.0-36.0 g/dL Red Cell Distribution Width 15.3 11.0-15.5 % Platelet Count 185 130-400 K/uL Mean Platelet Volume 8.2 7.5-10.5 fL Immature Granulocyte % (Auto) 0.2 0-1 % Neutrophils (%) (Auto) 60.6 40.0-77.0 % Lymphocytes (%) (Auto) 26.4 21.0-51.0 % Monocytes (%) (Auto) 10.4 3.0-13.0 % Eosinophils (%) (Auto) 2.0 0.0-8.0 % Basophils (%) (Auto) 0.4 0.0-5.0 % Neutrophils # (Auto) 5.0 1.8-7.7 K/uL Lymphocytes # (Auto) 2.2 1.0-4.8 K/uL Monocytes # (Auto) 0.9 0.1-1.0 K/uL Eosinophils # (Auto) 0.17 0.00-0.70 K/uL Basophils # (Auto) 0.03 0.00-0.20 K/uL Absolute Immature Granulocyte (auto 0.02 0-1 K/uL Segmented Neutrophils % 71 H 40-70 % Lymphocytes % (Manual) 20 L 22-44 % Monocytes % (Manual) 2 2-9 % Nucleated Red Blood Cells 0.0 0.0-0.19 % Differential Comment MANUAL DIFFERENTIAL Reactive Lymphocytes 7 H 0-0 % White Cell Morphology Comment See comments Platelet Morphology Comment ADEQUATE Red Blood Cell Morphology ANISO 1+ Chemistry Labs: Test 02/06/25 06:52 02/06/25 04:46 Range/Units Whole Blood Glucose 79 70-110 MG/DL Sodium Level 132 L 136-145 mmol/L Potassium Level 4.0 3.5-5.1 mmol/L Chloride Level 98 L 101-111 mmol/L Carbon Dioxide Level 27 21-32 mmol/L Blood Urea Nitrogen 9 7-18 mg/dL Creatinine 0.7 0.5-1.3 mg/dL Glomerular Filtration Rate Calc 111 >90 mL/min Random Glucose 93 70-105 mg/dL Total Calcium 7.6 L 8.5-10.1 mg/dL Magnesium Level 1.70 L 1.80-2.40 mg/dL Total Bilirubin 1.0 0.2-1.0 mg/dL Aspartate Amino Transf (AST/SGOT) 29 10-37 U/L Alanine Aminotransferase (ALT/SGPT) 15 12-78 U/L Alkaline Phosphatase 213 H 50-136 U/L Total Protein 6.1 6.0-8.3 g/dL Albumin 2.0 L 3.5-5.0 g/dL DIAGNOSTICS / RADIOLOGY RESULTS: [ ] PLAN NEURO: Minimize central acting medications as possible. Maintain fall precautions, adequate lighting during the day PULMONARY: Supplemental 02 as needed. Maintain aspiration precautions at all times CARDIOVASCULAR: Follow hemodynamics. Vital signs per facility protocol GI & NUTRITION: Continue with nutritional support. Continue stool softeners and laxatives as needed. KIDNEYS & ELECTROLYTES: Strict monitoring of intake, output and overall fluid balance. Avoid nephrotoxic medications to the extent possible. Medications to be dosed according to renal function. Monitor electrolytes and replace as needed ENDOCRINE: Maintain blood glucose between 100-180 at all times. Hypoglycemia protocol in place INFECTIOUS DISEASE: Trend temperature, WBC and procalcitonin level Follow cultures, deescalate antibiotics as soon as possible. Panculture if new onset fever ONCOLOGY/HEMATOLOGY/COAGULATION: Monitor for s/s of bleeding Monitor hemoglobin, coagulation studies as needed SKIN: Pressure ulcer prevention per facility protocol Specialty mattress ORTHO/REHAB: Continue PT/OT Prophylaxis: Continue GI and DVT prophylaxis Code Status: Full Resuscitation Disposition: TBD Other: Total patient care time exceeds 35 minutes excluding all procedures. GLENN ATKINS PAC Feb 06, 2025 09:03
[2025-02-06 12:00] VITALS: BP 122/77; PULSE 117; RESP 18; TEMP 98.4
--- NOTE | 2025-02-06 12:48 | PN ---
[facility] PROGRESS NOTE Date of Service: Feb 06, 2025 Time of Service: 12:45 Attending doctor lopez SUBJECTIVE: [ 02/02 Patient is54 years old male with a past medical history of alcoholic cirrhosis of liver, multiple recurrent ascites s/p paracentesis, portal gastropathy, hyponatremia and pleural effusion who came to emergency department with a complaint of shortness of breaths, vomiting, progressive cough for the past three days. Patient stated that recently he was discharged on 01/25/2025 where he was diagnosed with moderate to large pleural effusion] Most recent vital signs temperature 99.9 pulse 106 respirations 16 blood pressure 110/75 patient is on room air satting 100%. WBC 10.7 Hemoglobin 8.2 hematocrit 25platelets 191 , urinalysis negative. Influenza A negative influenza B negative COVID negative. Toxicology negative. Sodium 129 potassium 4.0 CO2 26 BUN nine creatinine 0.7 [id number] lactic 1.8 ammonia 42. Chest x-ray showed moderate right pleural effusion with lung atelectasis no evidence of pneumothorax. Chest CT showed large right-sided pleural effusion which is causing atelectasis of the right lower lung. There is a tips shunt in place. 2D echo more than 65% left ventricle diastolic function is normal. We consulted examination grader for further evaluation/recommendation. Patient is pending thoracentesis on 02/02/2025. Patient will be admitted under hospitalist care for further evaluation/recommendation. 02/03 patient was seen by nurse practitioner and physician during rounding in room 319. Chest x-ray showed moderate right pleural effusion. CT chest showed large right pleural effusion/atelectasis and large ascites in the abdomen. 2D echo showed EF of more than 60% normal function. Patient is pending thoracentesis as per examination grader. We will also order IR for the paracentesis for large ascites in the abdomen. As per patient he sees Dr. Stephanie MONSON and his neck is appointment for the paracentesis is on Friday02/11/2025 at 5:00 p.m.. At this moment we will continue to monitor patient in the meantime. A.m. labs. 02/04/25 patient was seen by RECEIVER/LABORER and physician. Logistic Specialist was unable to perform thoracentesis. At this moment they recommend to continue with furosemide and spironolactone and do paracentesis 1st. At this moment we do not have IR in the building. We will continue to monitor patient in the meantime. A.m. labs. Patient updated with the further plan and recommendations 02/05/25 patient was seen by nurse practitioner and physician during rounding in room 319. Dr. Persaud from pulmonology, attention to do thoracentesis yesterday 02/04/2025 unfortunately procedure was unsuccessful. We will order IR for t horacentesis and IR for paracentesis for Friday02/07/2025. Continue furosemide 40 mg IV push b.i.d. and spironolactone in the meantime. Continue to monitor patient in the meantime. A.m. labs 02/06/25 patient was seen by nurse practitioner and physician during rounding in room 319. WBC trending down today at 9.0 H&H stable. Blood culture negative x4 days. Patient continues to be on vanco and Zosyn. Pulmonology Dr. Morgan was in to perform thoracentesis yesterday 02/05/2025 on right side and was able to withdrawal 700 cc of pleural fluids. Patient is pending paracentesis by IR tomorrow 02/07/2025. We will continue to monitor patient in the meantime. A.m. labs] REVIEW OF SYSTEMS CONSTITUTIONAL: Denies fevers, chills, or night sweats. No unintentional weight loss reported. NEUROLOGICAL: Denies headache, amaurosis fugax, motor weakness, sensory deficit, vertigo/spinning sensation, gait abnormalities, or tremors. ENT: No hearing loss, otalgia, otorrhea, rhinitis, rhinorrhea, hoarseness, or sore throat. CARDIOVASCULAR: Denies any exertional angina, dyspnea on exertion, orthopnea, paroxysmal nocturnal dyspnea, palpitations, life-threatening arrhythmias, claudication. PULMONARY: Denies any , cough, phlegm/sputum, hemoptysis, pleuritic chest pain. Complains of shortness of breaths SLEEP: Denies morning headaches, daytime somnolence or napping. Denies difficulty falling asleep, staying asleep, waking from sleep. Denies knowledge of snoring. GASTROINTESTINAL: Denies any type of dysphagia to either liquids or solids. Denies nausea, vomiting, pyrosis, early satiety, abdominal pain, diarrhea, constipation, or changes in stool consistency or caliber. Denies coffee-ground emesis, hematemesis, hematochezia, or melanotic stools. GENITOURINARY: Denies frequency, urgency, nocturia, hematuria or incontinence (Storage/Irritative symptoms.) Low urinary stream, straining to void, urinary intermittency or hesitancy, splitting of the voiding stream, terminal dribbling. ENDOCRINOLOGIC: Denies polyuria, polydipsia, polyphagia or heat/cold intolerances. HEMATOLOGIC: Denies thrombophilia/previous clots, or coagulopathy/bleeding disorders. ONCOLOGIC: Denies personal history of malignancy. DERMATOLOGIC: Denies rashes or pruritus. PSYCHIATRIC: Denies any suicidal or homicidal ideation. Denies hallucinations. PHYSICAL EXAM GENERAL APPEARANCE: The patient is awake, alert, and oriented, in no acute cardiopulmonary distress. NEUROLOGICAL: Cranial nerves II-XII grossly intact. Motor is 5/5 in bilateral upper and lower extremities proximal to distal. No sensory deficits. HEENT: Face is symmetric. Pupils are equal and reactive. Extraocular movements are intact. NECK: Supple. No JVD. No thyromegaly. No submental, submandibular, pre-/postauricular, occipital or supraclavicular lymphadenopathy. CHEST: Normal chest expansion. No Telemetry. LUNGS: Absence of any rales, rhonchi or any wheezing. CARDIOVASCULAR: Regular. S1 and S2 normal. No appreciable rubs, murmurs or gallops. ABDOMEN: Soft, nontender, and nondistended. There is no rebound, voluntary guarding, or rigidity. : Deferred. No Espinosa. EXTREMITIES: Non-edematous and not cyanotic. No clubbing. Good capillary refill. SKIN: No skin breakdown. Vital Signs (last 8hr) Date Time Temp Pulse Resp B/P (MAP) Pulse Ox O2 Delivery O2 Flow Rate FiO2 02/06/25 08:00 99.5 116 18 135/85 94 Nasal Cannula 2.0 LABS: Laboratory: Test 02/06/25 10:46 02/06/25 04:46 Range/Units Whole Blood Glucose 110 70-110 MG/DL White Blood Count 8.3 4.8-10.8 K/uL Red Blood Count 2.26 L 4.50-6.20 MIL/uL Hemoglobin 7.8 L 14.0-18.0 g/dL Hematocrit 23.6 L 42-54 % Mean Corpuscular Volume 104.4 H 79-99 fL Mean Corpuscular Hemoglobin 34.5 H 27.0-33.0 pg Mean Corpuscular Hemoglobin Concent 33.1 32.0-36.0 g/dL Red Cell Distribution Width 15.3 11.0-15.5 % Platelet Count 185 130-400 K/uL Mean Platelet Volume 8.2 7.5-10.5 fL Immature Granulocyte % (Auto) 0.2 0-1 % Neutrophils (%) (Auto) 60.6 40.0-77.0 % Lymphocytes (%) (Auto) 26.4 21.0-51.0 % Monocytes (%) (Auto) 10.4 3.0-13.0 % Eosinophils (%) (Auto) 2.0 0.0-8.0 % Basophils (%) (Auto) 0.4 0.0-5.0 % Neutrophils # (Auto) 5.0 1.8-7.7 K/uL Lymphocytes # (Auto) 2.2 1.0-4.8 K/uL Monocytes # (Auto) 0.9 0.1-1.0 K/uL Eosinophils # (Auto) 0.17 0.00-0.70 K/uL Basophils # (Auto) 0.03 0.00-0.20 K/uL Absolute Immature Granulocyte (auto 0.02 0-1 K/uL Segmented Neutrophils % 71 H 40-70 % Lymphocytes % (Manual) 20 L 22-44 % Monocytes % (Manual) 2 2-9 % Nucleated Red Blood Cells 0.0 0.0-0.19 % Differential Comment MANUAL DIFFERENTIAL Reactive Lymphocytes 7 H 0-0 % White Cell Morphology Comment See comments Platelet Morphology Comment ADEQUATE Red Blood Cell Morphology ANISO 1+ Sodium Level 132 L 136-145 mmol/L Potassium Level 4.0 3.5-5.1 mmol/L Chloride Level 98 L 101-111 mmol/L Carbon Dioxide Level 27 21-32 mmol/L Blood Urea Nitrogen 9 7-18 mg/dL Creatinine 0.7 0.5-1.3 mg/dL Glomerular Filtration Rate Calc 111 >90 mL/min Random Glucose 93 70-105 mg/dL Total Calcium 7.6 L 8.5-10.1 mg/dL Magnesium Level 1.70 L 1.80-2.40 mg/dL Total Bilirubin 1.0 0.2-1.0 mg/dL Aspartate Amino Transf (AST/SGOT) 29 10-37 U/L Alanine Aminotransferase (ALT/SGPT) 15 12-78 U/L Alkaline Phosphatase 213 H 50-136 U/L Total Protein 6.1 6.0-8.3 g/dL Albumin 2.0 L 3.5-5.0 g/dL Current Medications Medications (Trade) Dose Ordered Sig/Ronak Route PRN Reason Start Time Stop Time Status Last Admin Dose Admin Acetaminophen (TYLenol 325MG TAB) 650 mg Q4H PRN PO MILD PAIN (1-3) 02/02/25 07:00 03/04/25 06:59 Acetaminophen (TYLenol 325MG TAB) 650 mg Q6H PRN PO MILD PAIN (1-3) 02/02/25 07:00 02/02/25 07:05 DC Acetaminophen (TYLenol 325MG TAB) 650 mg Q6H PRN PO TEMPERATURE GREATER THAN 101.5 02/02/25 07:00 03/04/25 06:59 Acetaminophen/ Hydrocodone Bitart (NORco 5/325MG) 1 tab Q6H PRN PO MODERATE PAIN (4-6) 02/02/25 07:00 02/07/25 06:59 Al Hydroxide/Mg Hydroxide (MAALox PLUS 30ML) 30 ml Q6H PRN PO INDIGESTION 02/02/25 07:00 03/04/25 06:59 Albumin Human 100 ml @ 100 mls/hr AD IV 02/04/25 09:00 02/14/25 08:59 02/04/25 09:37 100 MLS/HR Albumin Human 250 ml @ 375 mls/hr AD IV 02/05/25 21:00 02/15/25 20:59 02/05/25 22:04 375 MLS/HR Dextrose (D50w) 50 ml AD PRN IV HYPOGLYCEMIA PROTOCOL 02/02/25 07:00 02/03/25 07:51 DC Dextrose (D50w) 50 ml AD PRN IV HYPOGLYCEMIA PROTOCOL 02/03/25 08:00 03/05/25 07:59 Diphenhydramine HCl (BENAdryl INJ) 25 mg Q6H PRN IV SEVERE ITCHING/RASH 02/02/25 07:00 03/04/25 06:59 Famotidine (Pepcid 20mg Vial) 20 mg BID IV 02/02/25 09:00 03/04/25 08:59 02/06/25 09:16 20 MG Famotidine (Pepcid 20mg Vial) 20 mg BID PRN IV NAUSEA/VOMITING 02/02/25 07:00 02/02/25 07:05 DC Furosemide (LASix 40MG TAB) 40 mg DAILY PO 02/03/25 09:00 02/02/25 10:15 DC Furosemide (LASix 40MG VIAL) 40 mg BID IVP 02/02/25 09:00 03/04/25 08:59 02/06/25 09:16 40 MG Glucagon (Glucagon 1mg Kit) 1 mg AD PRN IM HYPOGLYCEMIA PROTOCOL 02/02/25 07:00 02/03/25 07:52 DC Glucagon (Glucagon 1mg Kit) 1 mg AD PRN IM HYPOGLYCEMIA PROTOCOL 02/03/25 08:00 03/05/25 07:59 Guaifenesin/ Dextromethorphan (RobiTUSSin DM 200/20MG 10ML) 10 ml Q4H PRN PO COUGH 02/02/25 07:00 03/04/25 06:59 02/02/25 17:30 10 ML Heparin Sodium (Porcine) (HEParin 5,000 UNIT VIAL) 5,000 unit Q12H SQ 02/02/25 09:00 03/04/25 08:59 02/06/25 09:32 5,000 UNIT Hydralazine HCl (APRESOLine 20MG INJ) 10 mg Q6H PRN IV For:SBP above 160;DBP above 90 02/02/25 07:00 03/04/25 06:59 Insulin Human Regular (humuLIN R 100 UNIT/ML 3ML) INSULIN SLIDING SCAL... ACHS SQ 02/02/25 07:30 03/04/25 07:29 Ketorolac Tromethamine (toRADol) 15 mg Q8H PRN IV MODERATE PAIN (4-6) 02/02/25 07:00 02/02/25 07:05 DC Lactulose (Constulose 20gm/ 30ml Udcup) 20 gm BID PO 02/02/25 21:00 03/04/25 20:59 02/06/25 09:17 20 GM Lactulose (Constulose 20gm/ 30ml Udcup) 20 gm BID PRN PO CONSTIPATION 02/02/25 07:00 03/04/25 06:59 Magnesium Sulfate 50 ml @ 0 mls/hr PROTOCOL IV 02/03/25 12:00 03/05/25 11:59 02/06/25 09:17 25 MLS/HR Magnesium Sulfate 50 ml @ 0 mls/hr PROTOCOL IV 02/05/25 07:00 02/05/25 06:43 DC Magnesium Sulfate 50 ml @ 0 mls/hr PROTOCOL IV 02/06/25 09:00 02/06/25 08:48 DC Magnesium Sulfate 50 ml @ 0 mls/hr PROTOCOL PRN IV other 02/02/25 07:00 02/03/25 11:49 DC Morphine Sulfate (morPHINE 2MG SYG) 1 mg Q4H PRN IVP SEVERE PAIN (7-10) 02/02/25 07:00 02/04/25 11:47 DC 02/03/25 03:20 1 MG Morphine Sulfate (morPHINE 2MG SYG) 2 mg Q4H PRN IVP SEVERE PAIN (7-10) 02/04/25 15:00 02/11/25 14:59 02/06/25 00:00 2 MG Multivitamins/ Minerals (Centrum) 1 tab DAILY PO 02/03/25 09:00 03/05/25 08:59 02/06/25 09:16 1 TAB Nitroglycerin (Nitrostat) 0.4 mg PROTOCOL PRN SL CHEST PAIN 02/02/25 07:00 03/04/25 06:59 Ondansetron HCl (zoFRAN 4MG INJ) 4 mg Q6H PRN IV NAUSEA/VOMITING 02/02/25 07:00 03/04/25 06:59 Oxycodone/ Acetaminophen (perCOCET) 1 tab Q6H PRN PO SEVERE PAIN (7-10) 02/02/25 07:00 02/04/25 07:07 DC 02/03/25 13:00 1 TAB Piperacillin Sod/ Tazobactam Sod 50 ml @ 12.5 mls/hr Q8H IV 02/02/25 13:00 02/12/25 12:59 02/06/25 06:12 12.5 MLS/HR Potassium Chloride 100 ml @ 100 mls/hr AD PRN IV POTASSIUM PROTOCOL 02/02/25 07:00 03/04/25 06:59 Potassium Chloride (K-Dur/Klor-Con 20meq) 20 meq AD PRN PO POTASSIUM PROTOCOL 02/02/25 07:00 03/04/25 06:59 02/03/25 08:47 20 MEQ Potassium Chloride (KCl 10% Elixir 20meq/15ml) 20 meq AD PRN PO POTASSIUM PROTOCOL 02/02/25 07:00 03/04/25 06:59 02/03/25 23:41 20 MEQ Spironolactone (Aldactone 25mg) 100 mg DAILY PO 02/03/25 09:00 03/05/25 08:59 02/06/25 09:17 100 MG Thiamine HCl (Vitamin B-1) 100 mg DAILY PO 02/03/25 09:00 03/05/25 08:59 02/06/25 09:16 100 MG Trazodone HCl (DesyREL/OlepTRO) 50 mg HS PO 02/05/25 21:00 03/07/25 20:59 02/05/25 22:03 50 MG Zolpidem Tartrate (AmbIEN) 5 mg HS PRN PO INSOMNIA 02/02/25 07:00 03/04/25 06:59 DIAGNOSTICS / RADIOLOGY: [ ] ASSESSMENT: [ Acute sepsis POA Large pleural effusion per chest x-ray and CT chest POA Large ascites in the abdomen per CT chest Alcoholic liver cirrhosis s/p multiple paracentesis POA Electrolyte imbalance hyponatremia Na 129 POA Multifactorial anemia POA Leukocytosis WBC 10.7 POA Cough POA ] PLAN: WBC trending down today at 9.0 H&H stable. Blood culture negative x4 days. Patient continues to be on vanco and Zosyn. Pulmonology Dr. Morgan was in to perform thoracentesis yesterday 02/05/2025 on right side and was able to withdrawal 700 cc of pleural fluids. Patient is pending paracentesis by IR tomorrow 02/07/2025. We will continue to monitor patient in the meantime. A.m. labs Chest x-ray showed moderate right pleural effusion. CT chest showed large right pleural effusion/atelectasis and large ascites in the abdomen. 2D echo showed EF of more than 60% normal function. As per patient he sees Dr. Stephanie MONSON and his neck is appointment for the paracentesis is on Friday02/11/2025 at 5:00 p.m.. Hyper hypoglycemia protocol Hypokalemia protocol Hypomagnesemia protocol I's and O's Q shift Blood culture pending Daily weights PRN medications Blood culture pending A.m. labs GI soft diet PT evaluation Case management evaluation Patient placed on Zosyn antibiotics ] ATTESTATION BY PHYSICIAN I have seen and examined the patient. I reviewed the documentation, medical decision making, and treatment plan as noted by the mid-level provider above. I agree with the findings and plan of care. Fly Lopez MD, [facility] Feb 06, 2025 12:48 FLY LOPEZ MD Feb 07, 2025 07:36
[2025-02-06 16:00] VITALS: BP 149/75; PULSE 120; RESP 18; TEMP 98.7
[2025-02-06 20:00] VITALS: BP 116/76; PULSE 116; RESP 20; TEMP 98.7
[2025-02-06] MEDS: HYDROcodone/APAP 5/325 1 TAB TABLET PO PRN (20:01)
[2025-02-07] VITALS (15 sets, daily range): BP systolic 102–131; BP diastolic 57–83; PULSE 96–116; RESP 18–20; TEMP 97.5–98.7; O2SAT 98–99
[2025-02-07 05:53] LABS: IMMATURE GRANULOCYTE ABSOLUTE 0.01 K/uL (0-1); NUCLEATED RED BLOOD CELLS 0.0 % (0.0-0.19); PLATELET COUNT (AUTO) 157 K/uL (130-400); RED BLOOD CELL COUNT(AUTO) 2.02 MIL/uL (4.50-6.20); RED CELL DISTRIBUTION WIDTH 15.0 % (11.0-15.5); WHITE BLOOD COUNT (AUTO) 6.8 K/uL (4.8-10.8)
[2025-02-07 06:12] LABS: ASPARTATE AMINOTRANSFERASE 27.0 U/L (10-37); CREATININE 0.8 mg/dL (0.5-1.3); GLOMERULAR FILTR. RATE CALC 106.0 mL/min (>90); GLUCOSE,RANDOM 126.0 mg/dL (70-105); SODIUM SERUM 135.0 mmol/L (136-145); TOTAL PROTEIN, SERUM 5.5 g/dL (6.0-8.3); UREA NITROGEN, BLOOD 8.0 mg/dL (7-18)
--- NOTE | 2025-02-07 09:21 | PN ---
[facility] PROGRESS NOTE Date Patient Seen: Feb 07, 2025 Time of Visit: 09:21 Supervising Physician: Dr. Morgan Supervising Physician: Dr. Morgan Primary Care Physician: [ ] Outpatient Specialists: [ ] Inpatient Consults: [ ] PROBLEM LIST: Acute sepsis POA Large Ascites s/p paracentesis 02/07/25 Large pleural effusion per chest x-ray and CT chest POA -s/p thoracentesis on 02/05/25 Alcoholic liver cirrhosis s/p multiple paracentesis POA Electrolyte imbalance hyponatremia Na 129 POA Multifactorial anemia POA Leukocytosis WBC 10.7 POA Cough POA INTERVAL HISTORY: Patient went for paracentesis this morning with interventional radiology. He's currently on room air at this time, denies any respiratory symptoms or shortness of breath. Patient will be followed closely by pulmonary team given his likely recurrence of the ascites and pleural effusion. He's cleared from pulmonary standpoint for discharge at this time. REVIEW OF SYSTEMS: 12 point ROS reviewed with patient. Pertinent positives mentioned above. O therwise negative. PHYSICAL EXAM: GENERAL: alert, weak, awake oriented x 3 HEENT: EOMI, Sclera non icteric, moist mucosa NECK: Supple, no JVD, trachea midline LUNGS: Clear breath sounds bilaterally. No wheezes HEART: Regular rate and rhythm. Normal S1 and S2, without murmurs ABD: Abdomen soft, nontender. Bowel sounds present EXT: No clubbing cyanosis or edema NEURO: Alert and oriented to person, follows commands Vital Signs (last 8hr) Date Time Temp Pulse Resp B/P (MAP) Pulse Ox O2 Delivery O2 Flow Rate FiO2 02/07/25 04:00 97.9 111 20 108/62 94 Room Air LABS: Hematology Labs: Test 02/07/25 05:48 02/06/25 04:46 Range/Units White Blood Count 6.8 4.8-10.8 K/uL Red Blood Count 2.02 L 4.50-6.20 MIL/uL Hemoglobin 7.0 *L 14.0-18.0 g/dL Hematocrit 21.1 L 42-54 % Mean Corpuscular Volume 104.5 H 79-99 fL Mean Corpuscular Hemoglobin 34.7 H 27.0-33.0 pg Mean Corpuscular Hemoglobin Concent 33.2 32.0-36.0 g/dL Red Cell Distribution Width 15.0 11.0-15.5 % Platelet Count 157 130-400 K/uL Mean Platelet Volume 8.1 7.5-10.5 fL Immature Granulocyte % (Auto) 0.1 0-1 % Neutrophils (%) (Auto) 61.9 40.0-77.0 % Lymphocytes (%) (Auto) 22.9 21.0-51.0 % Monocytes (%) (Auto) 12.3 3.0-13.0 % Eosinophils (%) (Auto) 2.5 0.0-8.0 % Basophils (%) (Auto) 0.3 0.0-5.0 % Neutrophils # (Auto) 4.2 1.8-7.7 K/uL Lymphocytes # (Auto) 1.6 1.0-4.8 K/uL Monocytes # (Auto) 0.8 0.1-1.0 K/uL Eosinophils # (Auto) 0.17 0.00-0.70 K/uL Basophils # (Auto) 0.02 0.00-0.20 K/uL Absolute Immature Granulocyte (auto 0.01 0-1 K/uL Nucleated Red Blood Cells 0.0 0.0-0.19 % Segmented Neutrophils % 71 H 40-70 % Lymphocytes % (Manual) 20 L 22-44 % Monocytes % (Manual) 2 2-9 % Differential Comment MANUAL DIFFERENTIAL Reactive Lymphocytes 7 H 0-0 % White Cell Morphology Comment See comments Platelet Morphology Comment ADEQUATE Red Blood Cell Morphology ANISO 1+ Chemistry Labs: Test 02/07/25 05:48 02/07/25 05:47 Range/Units Sodium Level 135 L 136-145 mmol/L Potassium Level 3.6 3.5-5.1 mmol/L Chloride Level 103 101-111 mmol/L Carbon Dioxide Level 27 21-32 mmol/L Blood Urea Nitrogen 8 7-18 mg/dL Creatinine 0.8 0.5-1.3 mg/dL Glomerular Filtration Rate Calc 106 >90 mL/min Random Glucose 126 H 70-105 mg/dL Total Calcium 7.1 L 8.5-10.1 mg/dL Magnesium Level 1.80 1.80-2.40 mg/dL Total Bilirubin 0.7 0.2-1.0 mg/dL Aspartate Amino Transf (AST/SGOT) 27 10-37 U/L Alanine Aminotransferase (ALT/SGPT) 14 12-78 U/L Alkaline Phosphatase 220 H 50-136 U/L Total Protein 5.5 L 6.0-8.3 g/dL Albumin 1.7 L 3.5-5.0 g/dL Whole Blood Glucose 125 H 70-110 MG/DL DIAGNOSTICS / RADIOLOGY RESULTS: [ ] PLAN NEURO: Minimize central acting medications as possible. Maintain fall precautions, adequate lighting during the day PULMONARY: Supplemental 02 as needed. Maintain aspiration precautions at all times CARDIOVASCULAR: Follow hemodynamics. Vital signs per facility protocol GI & NUTRITION: Continue with nutritional support. Continue stool softeners and laxatives as needed. KIDNEYS & ELECTROLYTES: Strict monitoring of intake, output and overall fluid balance. Avoid nephrotoxic medications to the extent possible. Medications to be dosed according to renal function. Monitor electrolytes and replace as needed ENDOCRINE: Maintain blood glucose between 100-180 at all times. Hypoglycemia protocol in place INFECTIOUS DISEASE: Trend temperature, WBC and procalcitonin level Follow cultures, deescalate antibiotics as soon as possible. Panculture if new onset fever ONCOLOGY/HEMATOLOGY/COAGULATION: Monitor for s/s of bleeding Monitor hemoglobin, coagulation studies as needed SKIN: Pressure ulcer prevention per facility protocol Specialty mattress ORTHO/REHAB: Continue PT/OT Prophylaxis: Continue GI and DVT prophylaxis Code Status: Full Resuscitation Disposition: TBD Other: Total patient care time exceeds 35 minutes excluding all procedures. GLENN ATKINS PAC Feb 07, 2025 09:21
[2025-02-07] MEDS ORDERED: MAGNESIUM 2GM PREMIX 50ML 50 ML IV SCH (10:00)
--- NOTE | 2025-02-07 10:03 | NUR ---
PARACENTESIS PATIENT LEFT VIA STRETCHER TO PENDING PARACENTESIS PROCEDURE. NO S/S OF DISTRESS NOTED.
[2025-02-07 10:14] LABS: % IRON SATURATION 37.6 % (30-44); IRON, SERUM 29.0 mcg/dL (65-175)
[2025-02-07] MEDS ORDERED: COMPOUND IV REFRIGERATED 1 EACH IVSOLN MISC PRN (11:30)
--- NOTE | 2025-02-07 11:30 | NUR ---
PARACENTESIS BY IR PROCEDURE PERFORMED BY DR Cait MOLINA. PUNCTURE SITE RLQ AND PATIENT TOLERATED PROCEDURE WELL. TOTAL REMOVED 6.1 LITERS FOR CLOUDY YELLOW FLUID. SPECIMEN COLLECTED AND SENT TO LAB. REPORT GIVEN TO IRASEMA ERAZO AND PATIENT TRANSPORTED TO [facility] VIA BED AT 1130. AAO X3 WITH NO C/O DISCOMFORT.
[2025-02-07] MEDS: ALBUMIN HUMAN 25% 200 ML IV SCH (13:06)
[2025-02-07 13:49] LABS: SPECIMENTYPE,BODY FLUID ASCITES
[2025-02-07 13:50] LABS: APPEARANCE BODY FLUID SLIGHTLY CLOUDY (CLEAR); COLOR,BODY FLUID YELLOW (LT YELLOW); TOTAL VOLUME,BODY FLUID 6100 mL
--- NOTE | 2025-02-07 14:02 | HMCIMG ---
US ABDOMINAL PARACENTESIS IR REASON: paracenthesis, ascites TECHNIQUE: Paracentesis was performed with ultrasound guidance. The puncture site was selected in the Right lower quadrant and overlying skin prepped and draped in a sterile fashion. 1% Xylocaine infiltration was performed. Catheter was placed in the fluid using trocar technique. 6.1 L were removed. Fluid sample was submitted for laboratory evaluation. The patient showed no evidence of complication during the procedure. Patient tolerated procedure well. IMPRESSION: 1. Ultrasound-guided paracentesis.
[2025-02-07 14:04] LABS: BF LYMPHOCYTE 35 %; BF MACROPHAGE 43; BF MESOTHELIAL 9 %; BF MONOCYTE 10 %; BF NEUTROPHIL 3.0 %; BF TOTAL CELLS COUNTED 100
--- NOTE | 2025-02-07 14:48 | PN ---
[facility] PROGRESS NOTE Date of Service: Feb 07, 2025 Time of Service: 14:46 SUBJECTIVE: [ 02/02 Patient is54 years old male with a past medical history of alcoholic cirrhosis of liver, multiple recurrent ascites s/p paracentesis, portal gastropathy, hyponatremia and pleural effusion who came to emergency department with a complaint of shortness of breaths, vomiting, progressive cough for the past three days. Patient stated that recently he was discharged on 01/25/2025 where he was diagnosed with moderate to large pleural effusion] Most recent vital signs temperature 99.9 pulse 106 respirations 16 blood pressure 110/75 patient is on room air satting 100%. WBC 10.7 Hemoglobin 8.2 hematocrit 25platelets 191 , urinalysis negative. Influenza A negative influenza B negative COVID negative. Toxicology negative. Sodium 129 potassium 4.0 CO2 26 BUN nine creatinine 0.7 [id number] lactic 1.8 ammonia 42. Chest x-ray showed moderate right pleural effusion with lung atelectasis no evidence of pneumothorax. Chest CT showed large right-sided pleural effusion which is causing atelectasis of the right lower lung. There is a tips shunt in place. 2D echo more than 65% left ventricle diastolic function is normal. We consulted credit administrator for further evaluation/recommendation. Patient is pending thoracentesis on 02/02/2025. Patient will be admitted under hospitalist care for further evaluation/recommendation. 02/03 patient was seen by nurse practitioner and physician during rounding in room 319. Chest x-ray showed moderate right pleural effusion. CT chest showed large right pleural effusion/atelectasis and large ascites in the abdomen. 2D echo showed EF of more than 60% normal function. Patient is pending thoracentesis as per credit administrator. We will also order IR for the paracentesis for large ascites in the abdomen. As per patient he sees Dr. Stephanie MONSON and his neck is appointment for the paracentesis is on Friday02/11/2025 at 5:00 p.m.. At this moment we will continue to monitor patient in the meantime. A.m. labs. 02/04/25 patient was seen by SH[employer] TECH and physician. Abrading Machine Tender was unable to perform thoracentesis. At this moment they recommend to continue with furosemide and spironolactone and do paracentesis 1st. At this moment we do not have IR in the building. We will continue to monitor patient in the meantime. A.m. labs. Patient updated with the further plan and recommendations 02/05/25 patient was seen by nurse practitioner and physician during rounding in room 319. Dr. Persaud from pulmonology, attention to do thoracentesis yesterday 02/04/2025 unfortunately procedure was unsuccessful. We will order IR for thoracentesis and IR for paracentesis for Friday02/07/2025. Continue furosemide 40 mg IV push b.i.d. and spironolactone in the meantime. Continue to monitor patient in the meantime. A.m. labs 02/06/25 patient was seen by nurse practitioner and physician during rounding in room 319. WBC trending down today at 9.0 H&H stable. Blood culture negative x4 days. Patient continues to be on vanco and Zosyn. Pulmonology Dr. Morgan was in to perform thoracentesis yesterday 02/05/2025 on right side and was able to withdrawal 700 cc of pleural fluids. Patient is pending paracentesis by IR tomorrow 02/07/2025. We will continue to monitor patient in the meantime. A.m. labs] 02/07 the patient has been seen and examined at bedside, case discussed with the RN. The time of my visit he is comfortably in bed, back from having paracentesis by IR, total of 6.1 L removed, tolerated the procedure well. At the time of my visit he is alert oriented x3, hemodynamically stable, denies dizziness, no blurry vision, no chest pain, shortness shortness for breath, no nausea, no vomiting, no abdominal pain. Hemoglobin 7.0, stool occult blood positive. We will discontinue heparin subcutaneously, we will start the patient on Protonix and octreotide drip, we will transfuse 1 unit of PRBC, GI consultation requested, we will follow input and recommendation. Discussed with the patient, all questions answered, agreed and understood the information provided. REVIEW OF SYSTEMS CONSTITUTIONAL: Denies fevers, chills, or night sweats. No unintentional weight loss reported. NEUROLOGICAL: Denies headache, amaurosis fugax, motor weakness, sensory deficit, vertigo/spinning sensation, gait abnormalities, or tremors. ENT: No hearing loss, otalgia, otorrhea, rhinitis, rhinorrhea, hoarseness, or sore throat. CARDIOVASCULAR: Denies any exertional angina, dyspnea on exertion, orthopnea, paroxysmal nocturnal dyspnea, palpitations, life-threatening arrhythmias, claudication. PULMONARY: Denies any , cough, phlegm/sputum, hemoptysis, pleuritic chest pain. Complains of shortness of breaths SLEEP: Denies morning headaches, daytime somnolence or napping. Denies difficulty falling asleep, staying asleep, waking from sleep. Denies knowledge of snoring. GASTROINTESTINAL: Denies any type of dysphagia to either liquids or solids. Denies nausea, vomiting, pyrosis, early satiety, abdominal pain, diarrhea, constipation, or changes in stool consistency or caliber. Denies coffee-ground emesis, hematemesis, hematochezia, or melanotic stools. GENITOURINARY: Denies frequency, urgency, nocturia, hematuria or incontinence (Storage/Irritative symptoms.) Low urinary stream, straining to void, urinary intermittency or hesitancy, splitting of the voiding stream, terminal dribbling. ENDOCRINOLOGIC: Denies polyuria, polydipsia, polyphagia or heat/cold intolerances. HEMATOLOGIC: Denies thrombophilia/previous clots, or coagulopathy/bleeding disorders. ONCOLOGIC: Denies personal history of malignancy. DERMATOLOGIC: Denies rashes or pruritus. PSYCHIATRIC: Denies any suicidal or homicidal ideation. Denies hallucinations. PHYSICAL EXAM GENERAL APPEARANCE: The patient is awake, alert, and oriented, in no acute cardiopulmonary distress. NEUROLOGICAL: Cranial nerves II-XII grossly intact. Motor is 5/5 in bilateral upper and lower extremities proximal to distal. No sensory deficits. HEENT: Face is symmetric. Pupils are equal and reactive. Extraocular movements are intact. NECK: Supple. No JVD. No thyromegaly. No submental, submandibular, pre- /postauricular, occipital or supraclavicular lymphadenopathy. CHEST: Normal chest expansion. No Telemetry. LUNGS: Absence of any rales, rhonchi or any wheezing. CARDIOVASCULAR: Regular. S1 and S2 normal. No appreciable rubs, murmurs or gallops. ABDOMEN: Soft, nontender, and nondistended. There is no rebound, voluntary guarding, or rigidity. : Deferred. No Espinosa. EXTREMITIES: Non-edematous and not cyanotic. No clubbing. Good capillary refill. SKIN: No skin breakdown. Vital Signs (last 8hr) Date Time Temp Pulse Resp B/P (MAP) Pulse Ox O2 Delivery O2 Flow Rate FiO2 02/07/25 08:00 98.2 113 19 131/83 99 Room Air 21 LABS: Laboratory: Test 02/07/25 11:43 02/07/25 11:05 02/07/25 09:48 02/07/25 09:29 Range/Units Whole Blood Glucose 135 H 70-110 MG/DL Bedside Glucose Comment Notified Nurse Body Fluid Source ASCITES Body Fluid Volume 6100 mL Body Fluid Color YELLOW LT YELLOW Body Fluid Supernatant Appearance SLIGHTLY CLOUDY CLEAR Body Fluid Neutrophils 3.0 % Body Fluid Lymphocytes 35 % Body Fluid Monocytes % 10 % Body Fluid Macrophages (%) 43 Body Fluid Mesothelial Cells (%) 9 % Iron Level 29 L 65-175 mcg/dL Total Iron Binding Capacity 77 L 250-450 mcg/dL Percent Iron Saturation 37.6 30-44 % Stool Occult Blood POSITIVE H NEGATIVE Test 02/07/25 05:48 02/06/25 04:46 Range/Units White Blood Count 6.8 4.8-10.8 K/uL Red Blood Count 2.02 L 4.50-6.20 MIL/uL Hemoglobin 7.0 *L 14.0-18.0 g/dL Hematocrit 21.1 L 42-54 % Mean Corpuscular Volume 104.5 H 79-99 fL Mean Corpuscular Hemoglobin 34.7 H 27.0-33.0 pg Mean Corpuscular Hemoglobin Concent 33.2 32.0-36.0 g/dL Red Cell Distribution Width 15.0 11.0-15.5 % Platelet Count 157 130-400 K/uL Mean Platelet Volume 8.1 7.5-10.5 fL Immature Granulocyte % (Auto) 0.1 0-1 % Neutrophils (%) (Auto) 61.9 40.0-77.0 % Lymphocytes (%) (Auto) 22.9 21.0-51.0 % Monocytes (%) (Auto) 12.3 3.0-13.0 % Eosinophils (%) (Auto) 2.5 0.0-8.0 % Basophils (%) (Auto) 0.3 0.0-5.0 % Neutrophils # (Auto) 4.2 1.8-7.7 K/uL Lymphocytes # (Auto) 1.6 1.0-4.8 K/uL Monocytes # (Auto) 0.8 0.1-1.0 K/uL Eosinophils # (Auto) 0.17 0.00-0.70 K/uL Basophils # (Auto) 0.02 0.00-0.20 K/uL Absolute Immature Granulocyte (auto 0.01 0-1 K/uL Nucleated Red Blood Cells 0.0 0.0-0.19 % Sodium Level 135 L 136-145 mmol/L Potassium Level 3.6 3.5-5.1 mmol/L Chloride Level 103 101-111 mmol/L Carbon Dioxide Level 27 21-32 mmol/L Blood Urea Nitrogen 8 7-18 mg/dL Creatinine 0.8 0.5-1.3 mg/dL Glomerular Filtration Rate Calc 106 >90 mL/min Random Glucose 126 H 70-105 mg/dL Total Calcium 7.1 L 8.5-10.1 mg/dL Magnesium Level 1.80 1.80-2.40 mg/dL Total Bilirubin 0.7 0.2-1.0 mg/dL Aspartate Amino Transf (AST/SGOT) 27 10-37 U/L Alanine Aminotransferase (ALT/SGPT) 14 12-78 U/L Alkaline Phosphatase 220 H 50-136 U/L Total Protein 5.5 L 6.0-8.3 g/dL Albumin 1.7 L 3.5-5.0 g/dL Segmented Neutrophils % 71 H 40-70 % Lymphocytes % (Manual) 20 L 22-44 % Monocytes % (Manual) 2 2-9 % Differential Comment MANUAL DIFFERENTIAL Reactive Lymphocytes 7 H 0-0 % White Cell Morphology Comment See comments Platelet Morphology Comment ADEQUATE Red Blood Cell Morphology ANISO 1+ Current Medications Medications (Trade) Dose Ordered Sig/Ronak Route PRN Reason Start Time Stop Time Status Last Admin Dose Admin Acetaminophen (TYLenol 325MG TAB) 650 mg Q4H PRN PO MILD PAIN (1-3) 02/02/25 07:00 03/04/25 06:59 Acetaminophen (TYLenol 325MG TAB) 650 mg Q6H PRN PO MILD PAIN (1-3) 02/02/25 07:00 02/02/25 07:05 DC Acetaminophen (TYLenol 325MG TAB) 650 mg Q6H PRN PO TEMPERATURE GREATER THAN 101.5 02/02/25 07:00 03/04/25 06:59 Acetaminophen/ Hydrocodone Bitart (NORco 5/325MG) 1 tab Q6H PRN PO MODERATE PAIN (4-6) 02/02/25 07:00 02/07/25 06:59 DC 02/06/25 20:01 1 TAB Al Hydroxide/Mg Hydroxide (MAALox PLUS 30ML) 30 ml Q6H PRN PO INDIGESTION 02/02/25 07:00 03/04/25 06:59 Albumin Human 100 ml @ 100 mls/hr AD IV 02/04/25 09:00 02/07/25 09:41 DC 02/04/25 09:37 100 MLS/HR Albumin Human 200 ml @ 0 mls/hr AD IV 02/07/25 11:30 02/08/25 11:29 02/07/25 13:06 100 MLS/HR Albumin Human 250 ml @ 375 mls/hr AD IV 02/05/25 21:00 02/07/25 11:24 DC 02/05/25 22:04 375 MLS/HR Dextrose (D50w) 50 ml AD PRN IV HYPOGLYCEMIA PROTOCOL 02/02/25 07:00 02/03/25 07:51 DC Dextrose (D50w) 50 ml AD PRN IV HYPOGLYCEMIA PROTOCOL 02/03/25 08:00 03/05/25 07:59 Diphenhydramine HCl (BENAdryl INJ) 25 mg Q6H PRN IV SEVERE ITCHING/RASH 02/02/25 07:00 03/04/25 06:59 Famotidine (Pepcid 20mg Vial) 20 mg BID IV 02/02/25 09:00 03/04/25 08:59 02/07/25 09:51 20 MG Famotidine (Pepcid 20mg Vial) 20 mg BID PRN IV NAUSEA/VOMITING 02/02/25 07:00 02/02/25 07:05 DC Furosemide (LASix 40MG TAB) 40 mg DAILY PO 02/03/25 09:00 02/02/25 10:15 DC Furosemide (LASix 40MG VIAL) 40 mg BID IVP 02/02/25 09:00 03/04/25 08:59 02/07/25 09:52 40 MG Glucagon (Glucagon 1mg Kit) 1 mg AD PRN IM HYPOGLYCEMIA PROTOCOL 02/02/25 07:00 02/03/25 07:52 DC Glucagon (Glucagon 1mg Kit) 1 mg AD PRN IM HYPOGLYCEMIA PROTOCOL 02/03/25 08:00 03/05/25 07:59 Guaifenesin/ Dextromethorphan (RobiTUSSin DM 200/20MG 10ML) 10 ml Q4H PRN PO COUGH 02/02/25 07:00 03/04/25 06:59 02/07/25 05:05 10 ML Heparin Sodium (Porcine) (HEParin 5,000 UNIT VIAL) 5,000 unit Q12H SQ 02/02/25 09:00 02/07/25 09:36 DC 02/06/25 21:46 5,000 UNIT Hydralazine HCl (APRESOLine 20MG INJ) 10 mg Q6H PRN IV For:SBP above 160;DBP above 90 02/02/25 07:00 03/04/25 06:59 Insulin Human Regular (humuLIN R 100 UNIT/ML 3ML) INSULIN SLIDING SCAL... ACHS SQ 02/02/25 07:30 03/04/25 07:29 Ketorolac Tromethamine (toRADol) 15 mg Q8H PRN IV MODERATE PAIN (4-6) 02/02/25 07:00 02/02/25 07:05 DC Lactulose (Constulose 20gm/ 30ml Udcup) 20 gm BID PO 02/02/25 21:00 03/04/25 20:59 02/07/25 09:51 20 GM Lactulose (Constulose 20gm/ 30ml Udcup) 20 gm BID PRN PO CONSTIPATION 02/02/25 07:00 03/04/25 06:59 Magnesium Sulfate 50 ml @ 0 mls/hr PROTOCOL IV 02/03/25 12:00 03/05/25 11:59 02/06/25 09:17 25 MLS/HR Magnesium Sulfate 50 ml @ 0 mls/hr PROTOCOL IV 02/05/25 07:00 02/05/25 06:43 DC Magnesium Sulfate 50 ml @ 0 mls/hr PROTOCOL IV 02/06/25 09:00 02/06/25 08:48 DC Magnesium Sulfate 50 ml @ 0 mls/hr PROTOCOL IV 02/07/25 10:00 02/07/25 09:36 DC Magnesium Sulfate 50 ml @ 0 mls/hr PROTOCOL PRN IV other 02/02/25 07:00 02/03/25 11:49 DC Morphine Sulfate (morPHINE 2MG SYG) 1 mg Q4H PRN IVP SEVERE PAIN (7-10) 02/02/25 07:00 02/04/25 11:47 DC 02/03/25 03:20 1 MG Morphine Sulfate (morPHINE 2MG SYG) 2 mg Q4H PRN IVP SEVERE PAIN (7-10) 02/04/25 15:00 02/11/25 14:59 02/06/25 00:00 2 MG Multivitamins/ Minerals (Centrum) 1 tab DAILY PO 02/03/25 09:00 03/05/25 08:59 02/07/25 09:52 1 TAB Nitroglycerin (Nitrostat) 0.4 mg PROTOCOL PRN SL CHEST PAIN 02/02/25 07:00 03/04/25 06:59 Octreotide Acetate 1250 mcg/ Sodium Chloride 250 ml @ 0 mls/hr PROTOCOL IV 02/07/25 10:00 03/09/25 09:59 Ondansetron HCl (zoFRAN 4MG INJ) 4 mg Q6H PRN IV NAUSEA/VOMITING 02/02/25 07:00 03/04/25 06:59 02/06/25 13:01 4 MG Oxycodone/ Acetaminophen (perCOCET) 1 tab Q6H PRN PO SEVERE PAIN (7-10) 02/02/25 07:00 02/04/25 07:07 DC 02/03/25 13:00 1 TAB Pantoprazole Sodium 80 mg/ Sodium Chloride 100 ml @ 10 mls/hr Q10H IV 02/07/25 10:00 03/09/25 09:59 Piperacillin Sod/ Tazobactam Sod 50 ml @ 12.5 mls/hr Q8H IV 02/02/25 13:00 02/12/25 12:59 02/07/25 04:25 12.5 MLS/HR Potassium Chloride 100 ml @ 100 mls/hr AD PRN IV POTASSIUM PROTOCOL 02/02/25 07:00 03/04/25 06:59 Potassium Chloride (K-Dur/Klor-Con 20meq) 20 meq AD PRN PO POTASSIUM PROTOCOL 02/02/25 07:00 03/04/25 06:59 02/03/25 08:47 20 MEQ Potassium Chloride (KCl 10% Elixir 20meq/15ml) 20 meq AD PRN PO POTASSIUM PROTOCOL 02/02/25 07:00 03/04/25 06:59 02/03/25 23:41 20 MEQ Spironolactone (Aldactone 25mg) 100 mg DAILY PO 02/03/25 09:00 03/05/25 08:59 02/07/25 09:52 100 MG Thiamine HCl (Vitamin B-1) 100 mg DAILY PO 02/03/25 09:00 03/05/25 08:59 02/07/25 09:52 100 MG Trazodone HCl (DesyREL/OlepTRO) 50 mg HS PO 02/05/25 21:00 03/07/25 20:59 02/06/25 20:00 50 MG Zolpidem Tartrate (AmbIEN) 5 mg HS PRN PO INSOMNIA 02/02/25 07:00 03/04/25 06:59 DIAGNOSTICS / RADIOLOGY: [ ] ASSESSMENT: Acute sepsis POA Large pleural effusion per chest x-ray and CT chest POA Large ascites in the abdomen per CT chest Alcoholic liver cirrhosis s/p multiple paracentesis POA Electrolyte imbalance hyponatremia Na 129 POA Multifactorial anemia POA Leukocytosis WBC 10.7 POA Cough POA PLAN: the patient has been seen and examined at bedside, case discussed with the RN. The time of my visit he is comfortably in bed, back from having paracentesis by IR, total of 6.1 L removed, tolerated the procedure well. At the time of my visit he is alert oriented x3, hemodynamically stable, denies dizziness, no blurry vision, no chest pain, shortness shortness for breath, no nausea, no vomiting, no abdominal pain. Hemoglobin 7.0, stool occult blood positive. We will discontinue heparin subcutaneously, we will start the patient on Protonix and octreotide drip, we will transfuse 1 unit of PRBC, GI consultation requested, we will follow input and recommendation. Discussed with the patient, all questions answered, agreed and understood the information provided. NEURO: Minimize central acting medications as possible. Fall Precautions. Well lighted room through the day and minimize interruptions through the night to prevent acute delirium. PULMONARY: Supplemental 02 as needed BiPAP as necessary, for respiratory distress Titrate Fio2 to keep Spo2 > or = 90% DuoNebs and CPT as needed IS hourly while awake for pulmonary hygiene prn Out of bed to chair as tolerated Maintain aspiration precautions at all times CARDIOVASCULAR: Follow hemodynamics. Vital signs per facility protocol GI & NUTRITION: Continue nutritional support Aspirations precautions Prokinetic agents and laxatives as needed KIDNEYS & ELECTROLYTES: Strict monitoring of intake and output Daily weights Avoid nephrotoxic agents Monitor electrolytes and replace as needed Goal urine output of 30mL/hr or 0.5mL/kg/hr Medications to be dosed according to renal function. Avoid contrast if possible ENDOCRINE: Maintain blood glucose between 100-180 at all times. Insulin sliding scale for blood glucose management Hypoglycemia and hyperglycemia protocol in place INFECTIOUS DISEASE: Trend temperature, WBC and procalcitonin level Follow cultures, deescalate antibiotics as soon as possible. Panculture if new onset fever HEMATOLOGY & COAGULATION: Monitor H&H. Keep Hgb > 7 Transfuse 1 unit of PRBC for Hgb < 7 Transfuse 1 pack of platelets of platelets < 20, 000 Watch for any signs and symptoms of bleeding SKIN: Pressure ulcer prevention per facility protocol Specialty mattress as needed ORTHO/REHAB Continue PT/OT PRN: MEDICATIONS Tylenol 650 mg po every 4 hrs for fever zofran 4 mg IV every 6 hrs for n/v Hydralazine 5 mg IV every 4 hrs systolic pressure > 160 bowel regiment: lactulose 20 gm PO BID PRN constipation Supportive measures: Continue GI and DVT prophylaxis Disposition: Pending improvement in clinical condition All questions answered time spent: > 35 min NELDA GRIJALVA MD Feb 07, 2025 14:48
[2025-02-07 15:55] LABS: BODY FLUID RBC 1035 /cu. mm.; BODY FLUID WBC 74 /cu. mm.
[2025-02-07] MEDS: ZOSYN 3.375GM+NS 50ML 50 ML IV SCH ×2 (17:40→22:38)
--- NOTE | 2025-02-07 21:04 | CONS ---
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 He was found to have moderate to large pleural effusion for which he underwent a thoracentesis. He also underwent a paracentesis. Review of Systems: CONSTITUTIONAL: No malaise or change in sensation of wellbeing. ENMT: No rhinorrhea, otorrhea, sinus pain, ear ache. CARDIOVASCULAR: No angina, palpitations, orthopnea or paroxysmal dyspnea. RESPIRATORY: No SOB. GASTROINTESTINAL: No abdominal pain, nausea, vomiting, diarrhea, hematemesis, melena or change in the patient's habitual bowel movements consistency/number. GENITOURINARY: No dysuria, hematuria or change in bladder continence. MUSCULOSKELETAL: No new muscle pain or decrease in muscular strength. No new joint swelling, redness or tenderness. SKIN: No new rash. Past Medical History: PAST MEDICAL HISTORY: [ Hyperlipidemia, hypertension, cirrhosis of liver, pleural effusions ] PAST SURGICAL HISTORY: [ Denies any ] PAST SOCIAL HISTORY: [ Patient denies smoking. Patient drinks occasionally alcohol. Patient denies any drugs use ] FAMILY HISTORY: [ Patient lives at home alone. Patient is independent ] Coded Allergies: NSAIDS (Non-Steroidal Anti-Inflamma (Unverified Allergy, Intermediate, 06/09/24) aspirin (Unverified Allergy, Intermediate, 06/09/24) ibuprofen (Unverified Allergy, Intermediate, 06/09/24) Physical Exam: GEN: Awake, alert, oriented in person, time and place, and in no acute distress. HEENT: No sinus tenderness. Tympanic membranes were not examined. No rhinorrhea. Oral pharyngeal mucosa is pink, moist and within normal limits. Neck is supple with no cervical lymphadenopathy, thyromegaly or JVD. CHEST: Inspection, palpation and percussion of the chest were unremarkable. Lung auscultation revealed normal breath sounds bilaterally. CARDIAC: PMI is within normal limits. Heart sounds are regular. Normal S1, S2. No gallop or murmur. ABD: Soft, non-tender and not distended. No peritoneal signs on palpation. No organomegaly. Normal bowel sounds. EXT: No cyanosis or clubbing. No edema. SKIN: Intact. No rashes. JOINTS: No evidence of synovitis or acute arthritis. NEURO: Alert and oriented to name, place and person. Cranial nerve examination is unremarkable. No focal motor deficits. Normal speech. Gait is normal. Strength is normal. Vital Sign (Last 24 Hours) 02/07/25 02/07/25 02/07/25 08:30 12:05 18:05 Temp 97.5 Pulse 106 Resp 20 B/P (MAP) 115/72 Pulse Ox 99 O2 Delivery Room Air O2 Flow Rate 0 FiO2 21 Intake & Output (last 24hrs) 02/06/25 02/06/25 02/07/25 15:00 23:00 07:00 Intake Total 50.0 ml Output Total 300 ml 200 ml Balance -250.0 ml -200 ml Laboratory: [ ] Laboratory: Test 02/07/25 19:52 02/07/25 15:45 02/07/25 11:05 02/07/25 09:48 Range/Units Whole Blood Glucose 104 70-110 MG/DL Bedside Glucose Comment Notified Nurse Body Fluid Source ASCITES Body Fluid Volume 6100 mL Body Fluid Color YELLOW LT YELLOW Body Fluid Supernatant Appearance SLIGHTLY CLOUDY CLEAR Body Fluid WBC 74 /cu. mm. Body Fluid RBC 1035 /cu. mm. Body Fluid Neutrophils 3.0 % Body Fluid Lymphocytes 35 % Body Fluid Monocytes % 10 % Body Fluid Macrophages (%) 43 Body Fluid Mesothelial Cells (%) 9 % Iron Level 29 L 65-175 mcg/dL Total Iron Binding Capacity 77 L 250-450 mcg/dL Percent Iron Saturation 37.6 30-44 % Test 02/07/25 09:29 02/07/25 05:48 02/06/25 04:46 Range/Units Stool Occult Blood POSITIVE H NEGATIVE White Blood Count 6.8 4.8-10.8 K/uL Red Blood Count 2.02 L 4.50-6.20 MIL/uL Hemoglobin 7.0 *L 14.0-18.0 g/dL Hematocrit 21.1 L 42-54 % Mean Corpuscular Volume 104.5 H 79-99 fL Mean Corpuscular Hemoglobin 34.7 H 27.0-33.0 pg Mean Corpuscular Hemoglobin Concent 33.2 32.0-36.0 g/dL Red Cell Distribution Width 15.0 11.0-15.5 % Platelet Count 157 130-400 K/uL Mean Platelet Volume 8.1 7.5-10.5 fL Immature Granulocyte % (Auto) 0.1 0-1 % Neutrophils (%) (Auto) 61.9 40.0-77.0 % Lymphocytes (%) (Auto) 22.9 21.0-51.0 % Monocytes (%) (Auto) 12.3 3.0-13.0 % Eosinophils (%) (Auto) 2.5 0.0-8.0 % Basophils (%) (Auto) 0.3 0.0-5.0 % Neutrophils # (Auto) 4.2 1.8-7.7 K/uL Lymphocytes # (Auto) 1.6 1.0-4.8 K/uL Monocytes # (Auto) 0.8 0.1-1.0 K/uL Eosinophils # (Auto) 0.17 0.00-0.70 K/uL Basophils # (Auto) 0.02 0.00-0.20 K/uL Absolute Immature Granulocyte (auto 0.01 0-1 K/uL Nucleated Red Blood Cells 0.0 0.0-0.19 % Sodium Level 135 L 136-145 mmol/L Potassium Level 3.6 3.5-5.1 mmol/L Chloride Level 103 101-111 mmol/L Carbon Dioxide Level 27 21-32 mmol/L Blood Urea Nitrogen 8 7-18 mg/dL Creatinine 0.8 0.5-1.3 mg/dL Glomerular Filtration Rate Calc 106 >90 mL/min Random Glucose 126 H 70-105 mg/dL Total Calcium 7.1 L 8.5-10.1 mg/dL Magnesium Level 1.80 1.80-2.40 mg/dL Total Bilirubin 0.7 0.2-1.0 mg/dL Aspartate Amino Transf (AST/SGOT) 27 10-37 U/L Alanine Aminotransferase (ALT/SGPT) 14 12-78 U/L Alkaline Phosphatase 220 H 50-136 U/L Total Protein 5.5 L 6.0-8.3 g/dL Albumin 1.7 L 3.5-5.0 g/dL Segmented Neutrophils % 71 H 40-70 % Lymphocytes % (Manual) 20 L 22-44 % Monocytes % (Manual) 2 2-9 % Differential Comment MANUAL DIFFERENTIAL Reactive Lymphocytes 7 H 0-0 % White Cell Morphology Comment See comments Platelet Morphology Comment ADEQUATE Red Blood Cell Morphology ANISO 1+ Current Medications Medications (Trade) Dose Ordered Sig/Ronak Route PRN Reason Start Time Stop Time Status Last Admin Dose Admin Acetaminophen (TYLenol 325MG TAB) 650 mg Q4H PRN PO MILD PAIN (1-3) 02/02/25 07:00 03/04/25 06:59 Acetaminophen (TYLenol 325MG TAB) 650 mg Q6H PRN PO MILD PAIN (1-3) 02/02/25 07:00 02/02/25 07:05 DC Acetaminophen (TYLenol 325MG TAB) 650 mg Q6H PRN PO TEMPERATURE GREATER THAN 101.5 02/02/25 07:00 03/04/25 06:59 Acetaminophen/ Hydrocodone Bitart (NORco 5/325MG) 1 tab Q6H PRN PO MODERATE PAIN (4-6) 02/02/25 07:00 02/07/25 06:59 DC 02/06/25 20:01 1 TAB Al Hydroxide/Mg Hydroxide (MAALox PLUS 30ML) 30 ml Q6H PRN PO INDIGESTION 02/02/25 07:00 03/04/25 06:59 Albumin Human 100 ml @ 100 mls/hr AD IV 02/04/25 09:00 02/07/25 09:41 DC 02/04/25 09:37 100 MLS/HR Albumin Human 200 ml @ 0 mls/hr AD IV 02/07/25 11:30 02/08/25 11:29 02/07/25 15:41 100 MLS/HR Albumin Human 250 ml @ 375 mls/hr AD IV 02/05/25 21:00 02/07/25 11:24 DC 02/05/25 22:04 375 MLS/HR Dextrose (D50w) 50 ml AD PRN IV HYPOGLYCEMIA PROTOCOL 02/02/25 07:00 02/03/25 07:51 DC Dextrose (D50w) 50 ml AD PRN IV HYPOGLYCEMIA PROTOCOL 02/03/25 08:00 03/05/25 07:59 Diphenhydramine HCl (BENAdryl INJ) 25 mg Q6H PRN IV SEVERE ITCHING/RASH 02/02/25 07:00 03/04/25 06:59 Famotidine (Pepcid 20mg Vial) 20 mg BID IV 02/02/25 09:00 03/04/25 08:59 02/07/25 09:51 20 MG Famotidine (Pepcid 20mg Vial) 20 mg BID PRN IV NAUSEA/VOMITING 02/02/25 07:00 02/02/25 07:05 DC Furosemide (LASix 40MG TAB) 40 mg DAILY PO 02/03/25 09:00 02/02/25 10:15 DC Furosemide (LASix 40MG VIAL) 40 mg BID IVP 02/02/25 09:00 03/04/25 08:59 02/07/25 09:52 40 MG Glucagon (Glucagon 1mg Kit) 1 mg AD PRN IM HYPOGLYCEMIA PROTOCOL 02/02/25 07:00 02/03/25 07:52 DC Glucagon (Glucagon 1mg Kit) 1 mg AD PRN IM HYPOGLYCEMIA PROTOCOL 02/03/25 08:00 03/05/25 07:59 Guaifenesin/ Dextromethorphan (RobiTUSSin DM 200/20MG 10ML) 10 ml Q4H PRN PO COUGH 02/02/25 07:00 03/04/25 06:59 02/07/25 05:05 10 ML Heparin Sodium (Porcine) (HEParin 5,000 UNIT VIAL) 5,000 unit Q12H SQ 02/02/25 09:00 02/07/25 09:36 DC 02/06/25 21:46 5,000 UNIT Hydralazine HCl (APRESOLine 20MG INJ) 10 mg Q6H PRN IV For:SBP above 160;DBP above 90 02/02/25 07:00 03/04/25 06:59 Insulin Human Regular (humuLIN R 100 UNIT/ML 3ML) INSULIN SLIDING SCAL... ACHS SQ 02/02/25 07:30 03/04/25 07:29 Ketorolac Tromethamine (toRADol) 15 mg Q8H PRN IV MODERATE PAIN (4-6) 02/02/25 07:00 02/02/25 07:05 DC Lactulose (Constulose 20gm/ 30ml Udcup) 20 gm BID PO 02/02/25 21:00 03/04/25 20:59 02/07/25 09:51 20 GM Lactulose (Constulose 20gm/ 30ml Udcup) 20 gm BID PRN PO CONSTIPATION 02/02/25 07:00 03/04/25 06:59 Magnesium Sulfate 50 ml @ 0 mls/hr PROTOCOL IV 02/03/25 12:00 03/05/25 11:59 02/06/25 09:17 25 MLS/HR Magnesium Sulfate 50 ml @ 0 mls/hr PROTOCOL IV 02/05/25 07:00 02/05/25 06:43 DC Magnesium Sulfate 50 ml @ 0 mls/hr PROTOCOL IV 02/06/25 09:00 02/06/25 08:48 DC Magnesium Sulfate 50 ml @ 0 mls/hr PROTOCOL IV 02/07/25 10:00 02/07/25 09:36 DC Magnesium Sulfate 50 ml @ 0 mls/hr PROTOCOL PRN IV other 02/02/25 07:00 02/03/25 11:49 DC Morphine Sulfate (morPHINE 2MG SYG) 1 mg Q4H PRN IVP SEVERE PAIN (7-10) 02/02/25 07:00 02/04/25 11:47 DC 02/03/25 03:20 1 MG Morphine Sulfate (morPHINE 2MG SYG) 2 mg Q4H PRN IVP SEVERE PAIN (7-10) 02/04/25 15:00 02/11/25 14:59 02/07/25 15:41 2 MG Multivitamins/ Minerals (Centrum) 1 tab DAILY PO 02/03/25 09:00 03/05/25 08:59 02/07/25 09:52 1 TAB Nitroglycerin (Nitrostat) 0.4 mg PROTOCOL PRN SL CHEST PAIN 02/02/25 07:00 03/04/25 06:59 Octreotide Acetate 1250 mcg/ Sodium Chloride 250 ml @ 0 mls/hr PROTOCOL IV 02/07/25 10:00 03/09/25 09:59 02/07/25 19:16 5 MLS/HR Ondansetron HCl (zoFRAN 4MG INJ) 4 mg Q6H PRN IV NAUSEA/VOMITING 02/02/25 07:00 03/04/25 06:59 02/06/25 13:01 4 MG Oxycodone/ Acetaminophen (perCOCET) 1 tab Q6H PRN PO SEVERE PAIN (7-10) 02/02/25 07:00 02/04/25 07:07 DC 02/03/25 13:00 1 TAB Pantoprazole Sodium 80 mg/ Sodium Chloride 100 ml @ 10 mls/hr Q10H IV 02/07/25 10:00 02/07/25 16:34 DC 02/07/25 15:42 10 MLS/HR Pantoprazole Sodium 80 mg/ Sodium Chloride 100 ml @ 10 mls/hr Q10H IV 02/07/25 22:00 03/09/25 21:59 Piperacillin Sod/ Tazobactam Sod 50 ml @ 12.5 mls/hr ONCE IV 02/07/25 16:30 02/07/25 20:30 DC 02/07/25 17:40 12.5 MLS/HR Piperacillin Sod/ Tazobactam Sod 50 ml @ 12.5 mls/hr Q8H IV 02/02/25 13:00 02/07/25 16:34 DC 02/07/25 16:19 12.5 MLS/HR Piperacillin Sod/ Tazobactam Sod 50 ml @ 12.5 mls/hr Q8H6 IV 02/07/25 22:00 02/17/25 21:59 Potassium Chloride 100 ml @ 100 mls/hr AD PRN IV POTASSIUM PROTOCOL 02/02/25 07:00 03/04/25 06:59 Potassium Chloride (K-Dur/Klor-Con 20meq) 20 meq AD PRN PO POTASSIUM PROTOCOL 02/02/25 07:00 03/04/25 06:59 02/03/25 08:47 20 MEQ Potassium Chloride (KCl 10% Elixir 20meq/15ml) 20 meq AD PRN PO POTASSIUM PROTOCOL 02/02/25 07:00 03/04/25 06:59 02/07/25 17:05 20 MEQ Spironolactone (Aldactone 25mg) 100 mg DAILY PO 02/03/25 09:00 03/05/25 08:59 02/07/25 09:52 100 MG Thiamine HCl (Vitamin B-1) 100 mg DAILY PO 02/03/25 09:00 03/05/25 08:59 02/07/25 09:52 100 MG Trazodone HCl (DesyREL/OlepTRO) 50 mg HS PO 02/05/25 21:00 03/07/25 20:59 02/06/25 20:00 50 MG Zolpidem Tartrate (AmbIEN) 5 mg HS PRN PO INSOMNIA 02/02/25 07:00 03/04/25 06:59 Diagnostics / Radiology: [COPY/PASTE HERE IF NO REPORTS PLEASE DELETE SECTION] Assessment: GI bleed Gastric varices Anemia Cirrhosis Pleural effusion Ascites Plan: EGD in am IR for eval of TIPS patency Continue GI prophylaxis Advance diet as tolerated Avoid NSAIDs Antireflux measures Monitor H&H and transfuse as needed Call with questions, concerns or change in clinical status Patient to follow-up at clinic post discharge Thank you for this consult EMELIA STOKES [employer]ODUCTION ENGINEER Feb 07, 2025 21:04
[2025-02-08] VITALS (13 sets, daily range): BP systolic 94–128; BP diastolic 60–85; PULSE 85–99; RESP 16–20; TEMP 97.5–98.3; O2SAT 96–97
[2025-02-08 06:05] LABS: NUCLEATED RED BLOOD CELLS 0.0 % (0.0-0.19); PLATELET COUNT (AUTO) 173.0 K/uL (130-400); RED BLOOD CELL COUNT(AUTO) 2.56 MIL/uL (4.50-6.20); RED CELL DISTRIBUTION WIDTH 20.1 % (11.0-15.5); WHITE BLOOD COUNT (AUTO) 5.8 K/uL (4.8-10.8)
[2025-02-08 06:18] LABS: ASPARTATE AMINOTRANSFERASE 23.0 U/L (10-37); CREATININE 0.6 mg/dL (0.5-1.3); GLOMERULAR FILTR. RATE CALC 116.0 mL/min (>90); GLUCOSE,RANDOM 113.0 mg/dL (70-105); SODIUM SERUM 135.0 mmol/L (136-145); TOTAL PROTEIN, SERUM 5.3 g/dL (6.0-8.3); UREA NITROGEN, BLOOD 8.0 mg/dL (7-18)
--- NOTE | 2025-02-08 07:55 | NUR ---
EGD PATIENT LEFT VIA STRETCHER FOR PENDING EGD WITH TIPS. NO S/S OF DISTRESS NOTED.
[2025-02-08] MEDS ORDERED: MAGNESIUM 2GM PREMIX 50ML 50 ML IV SCH (09:30)
--- NOTE | 2025-02-08 09:37 | PN ---
[facility] PROGRESS NOTE Date Patient Seen: Feb 08, 2025 Time of Visit: 09:37 Supervising Physician: Dr. Morgan PROBLEM LIST: Acute sepsis POA Acute anemia with a hemoglobin of 7.0, S/B 1 unit PRBCs pending GI consultation Large Ascites s/p paracentesis 02/07/25 Large pleural effusion per chest x-ray and CT chest POA -s/p thoracentesis on 02/05/25 Alcoholic liver cirrhosis s/p multiple paracentesis POA Electrolyte imbalance hyponatremia Na 129 POA Multifactorial anemia POA Leukocytosis WBC 10.7 POA Cough POA INTERVAL HISTORY: Patient evaluated at bedside today, currently on room air. His hemoglobin has trended upward to 8.4. He is pending GI consultation at this time. Patient denies any chest pain, no pleuritic pain, he remains recovering from paracentesis. No overnight events reported patient denies any acute distress. Plan Continue to monitor SpO2 for possible new onset hypoxia secondary to recurrent ascites and pleural effusion REVIEW OF SYSTEMS: 12 point ROS reviewed with patient. Pertinent positives mentioned above. Otherwise negative. PHYSICAL EXAM: GENERAL: alert, weak, awake oriented x 3 HEENT: EOMI, Sclera non icteric, moist mucosa NECK: Supple, no JVD, trachea midline LUNGS: Clear breath sounds bilaterally. No wheezes HEART: Regular rate and rhythm. Normal S1 and S2, without murmurs ABD: Abdomen soft, nontender. Bowel sounds present EXT: No clubbing cyanosis or edema NEURO: Alert and oriented to person, follows commands Vital Signs (last 8hr) Date Time Temp Pulse Resp B/P (MAP) Pulse Ox O2 Delivery O2 Flow Rate FiO2 02/08/25 09:35 96 17 110/67 95 Room Air 02/08/25 09:30 95 16 107/68 95 Room Air 02/08/25 09:25 92 17 99/67 94 Room Air 02/08/25 09:20 87 16 99/64 95 Room Air 02/08/25 09:15 89 17 95/60 96 Room Air 02/08/25 09:10 97.5 93 16 97/61 97 Room Air 02/08/25 09:01 Mask 02/08/25 09:01 Mask 10.0 02/08/25 04:00 98.1 97 18 94/66 100 Room Air LABS: Hematology Labs: Test 02/08/25 05:55 02/07/25 05:48 Range/Units White Blood Count 5.8 4.8-10.8 K/uL Red Blood Count 2.56 L 4.50-6.20 MIL/uL Hemoglobin 8.4 L 14.0-18.0 g/dL Hematocrit 25.3 L 42-54 % Mean Corpuscular Volume 98.8 79-99 fL Mean Corpuscular Hemoglobin 32.8 27.0-33.0 pg Mean Corpuscular Hemoglobin Concent 33.2 32.0-36.0 g/dL Red Cell Distribution Width 20.1 H 11.0-15.5 % Platelet Count 173 130-400 K/uL Mean Platelet Volume 8.2 7.5-10.5 fL Nucleated Red Blood Cells 0.0 0.0-0.19 % Immature Granulocyte % (Auto) 0.1 0-1 % Neutrophils (%) (Auto) 61.9 40.0-77.0 % Lymphocytes (%) (Auto) 22.9 21.0-51.0 % Monocytes (%) (Auto) 12.3 3.0-13.0 % Eosinophils (%) (Auto) 2.5 0.0-8.0 % Basophils (%) (Auto) 0.3 0.0-5.0 % Neutrophils # (Auto) 4.2 1.8-7.7 K/uL Lymphocytes # (Auto) 1.6 1.0-4.8 K/uL Monocytes # (Auto) 0.8 0.1-1.0 K/uL Eosinophils # (Auto) 0.17 0.00-0.70 K/uL Basophils # (Auto) 0.02 0.00-0.20 K/uL Absolute Immature Granulocyte (auto 0.01 0-1 K/uL Chemistry Labs: Test 02/08/25 05:55 02/08/25 04:58 02/07/25 15:45 02/07/25 09:48 Range/Units Sodium Level 135 L 136-145 mmol/L Potassium Level 4.3 3.5-5.1 mmol/L Chloride Level 105 101-111 mmol/L Carbon Dioxide Level 27 21-32 mmol/L Blood Urea Nitrogen 8 7-18 mg/dL Creatinine 0.6 0.5-1.3 mg/dL Glomerular Filtration Rate Calc 116 >90 mL/min Random Glucose 113 H 70-105 mg/dL Total Calcium 7.4 L 8.5-10.1 mg/dL Magnesium Level 1.60 L 1.80-2.40 mg/dL Total Bilirubin 0.8 0.2-1.0 mg/dL Aspartate Amino Transf (AST/SGOT) 23 10-37 U/L Alanine Aminotransferase (ALT/SGPT) 13 12-78 U/L Alkaline Phosphatase 156 H 50-136 U/L Total Protein 5.3 L 6.0-8.3 g/dL Albumin 2.0 L 3.5-5.0 g/dL Whole Blood Glucose 128 H 70-110 MG/DL Bedside Glucose Comment Notified Nurse Iron Level 29 L 65-175 mcg/dL Total Iron Binding Capacity 77 L 250-450 mcg/dL Percent Iron Saturation 37.6 30-44 % DIAGNOSTICS / RADIOLOGY RESULTS: [ ] PLAN NEURO: Minimize central acting medications as possible. Maintain fall precautions, adequate lighting during the day PULMONARY: Supplemental 02 as needed. Maintain aspiration precautions at all times CARDIOVASCULAR: Follow hemodynamics. Vital signs per facility protocol GI & NUTRITION: Continue with nutritional support. Continue stool softeners and laxatives as needed. KIDNEYS & ELECTROLYTES: Strict monitoring of intake, output and overall fluid balance. Avoid nephrotoxic medications to the extent possible. Medications to be dosed according to renal function. Monitor electrolytes and replace as needed ENDOCRINE: Maintain blood glucose between 100-180 at all times. Hypoglycemia protocol in place INFECTIOUS DISEASE: Trend temperature, WBC and procalcitonin level Follow cultures, deescalate antibiotics as soon as possible. Panculture if new onset fever ONCOLOGY/HEMATOLOGY/COAGULATION: Monitor for s/s of bleeding Monitor hemoglobin, coagulation studies as needed SKIN: Pressure ulcer prevention per facility protocol Specialty mattress ORTHO/REHAB: Continue PT/OT Prophylaxis: Continue GI and DVT prophylaxis Code Status: Full Resuscitation Disposition: TBD Other: Total patient care time exceeds 35 minutes excluding all procedures. GLENN ATKINS PAC Feb 08, 2025 09:37
--- NOTE | 2025-02-08 12:41 | PN ---
[facility] PROGRESS NOTE Date of Service: Feb 08, 2025 Time of Service: 12:39 SUBJECTIVE: [ 02/02 Patient is54 years old male with a past medical history of alcoholic cirrhosis of liver, multiple recurrent ascites s/p paracentesis, portal gastropathy, hyponatremia and pleural effusion who came to emergency department with a complaint of shortness of breaths, vomiting, progressive cough for the past three days. Patient stated that recently he was discharged on 01/25/2025 where he was diagnosed with moderate to large pleural effusion] Most recent vital signs temperature 99.9 pulse 106 respirations 16 blood pressure 110/75 patient is on room air satting 100%. WBC 10.7 Hemoglobin 8.2 hematocrit 25platelets 191 , urinalysis negative. Influenza A negative influenza B negative COVID negative. Toxicology negative. Sodium 129 potassium 4.0 CO2 26 BUN nine creatinine 0.7 [id number] lactic 1.8 ammonia 42. Chest x-ray showed moderate right pleural effusion with lung atelectasis no evidence of pneumothorax. Chest CT showed large right-sided pleural effusion which is causing atelectasis of the right lower lung. There is a tips shunt in place. 2D echo more than 65% left ventricle diastolic function is normal. We consulted stone decorator for further evaluation/recommendation. Patient is pending thoracentesis on 02/02/2025. Patient will be admitted under hospitalist care for further evaluation/recommendation. 02/03 patient was seen by nurse practitioner and physician during rounding in room 319. Chest x-ray showed moderate right pleural effusion. CT chest showed large right pleural effusion/atelectasis and large ascites in the abdomen. 2D echo showed EF of more than 60% normal function. Patient is pending thoracentesis as per stone decorator. We will also order IR for the paracentesis for large ascites in the abdomen. As per patient he sees Dr. Stephanie MONSON and his neck is appointment for the paracentesis is on Friday02/11/2025 at 5:00 p.m.. At this moment we will continue to monitor patient in the meantime. A.m. labs. 02/04/25 patient was seen by DIETITIAN RESEARCH and physician. Transportation Superintendent was unable to perform thoracentesis. At this moment they recommend to continue with furosemide and spironolactone and do paracentesis 1st. At this moment we do not have IR in the building. We will continue to monitor patient in the meantime. A.m. labs. Patient updated with the further plan and recommendations 02/05/25 patient was seen by nurse practitioner and physician during rounding in room 319. Dr. Pesraud from pulmonology, attention to do thoracentesis yesterday 02/04/2025 unfortunately procedure was unsuccessful. We will order IR for thoracentesis and IR for paracentesis for Friday02/07/2025. Continue furosemide 40 mg IV push b.i.d. and spironolactone in the meantime. Continue to monitor patient in the meantime. A.m. labs 02/06/25 patient was seen by nurse practitioner and physician during rounding in room 319. WBC trending down today at 9.0 H&H stable. Blood culture negative x4 days. Patient continues to be on vanco and Zosyn. Pulmonology Dr. Morgan was in to perform thoracentesis yesterday 02/05/2025 on right side and was able to withdrawal 700 cc of pleural fluids. Patient is pending paracentesis by IR tomorrow 02/07/2025. We will continue to monitor patient in the meantime. A.m. labs] 02/07 the patient has been seen and examined at bedside, case discussed with the RN. The time of my visit he is comfortably in bed, back from having paracentesis by IR, total of 6.1 L removed, tolerated the procedure well. At the time of my visit he is alert oriented x3, hemodynamically stable, denies dizziness, no blurry vision, no chest pain, shortness shortness for breath, no nausea, no vomiting, no abdominal pain. Hemoglobin 7.0, stool occult blood positive. We will discontinue heparin subcutaneously, we will start the patient on Protonix and octreotide drip, we will transfuse 1 unit of PRBC, GI consultation requested, we will follow input and recommendation. Discussed with the patient, all questions answered, agreed and understood the information provided. 02/08 patient is seen and examined at bedside, discussed with the RN, no acute events overnight, at the time of my visit comfortably in bed, awake, following commands, transfusion of 1 unit of PRBC done yesterday, tolerated well, h emoglobin today 8.4, hematocrit 25.3. Patient evaluated by GI, plan for EGD tomorrow. Level 1.6, we will give 2 g of magnesium sulfate IV x1, keep potassium above four and magnesium above two. Discussed with the patient, all questions answered, agreed and understood the information provided. REVIEW OF SYSTEMS CONSTITUTIONAL: Denies fevers, chills, or night sweats. No unintentional weight loss reported. NEUROLOGICAL: Denies headache, amaurosis fugax, motor weakness, sensory deficit, vertigo/spinning sensation, gait abnormalities, or tremors. ENT: No hearing loss, otalgia, otorrhea, rhinitis, rhinorrhea, hoarseness, or sore throat. CARDIOVASCULAR: Denies any exertional angina, dyspnea on exertion, orthopnea, paroxysmal nocturnal dyspnea, palpitations, life-threatening arrhythmias, claudication. PULMONARY: Denies any , cough, phlegm/sputum, hemoptysis, pleuritic chest pain. Complains of shortness of breaths SLEEP: Denies morning headaches, daytime somnolence or napping. Denies difficulty falling asleep, staying asleep, waking from sleep. Denies knowledge of snoring. GASTROINTESTINAL: Denies any type of dysphagia to either liquids or solids. Denies nausea, vomiting, pyrosis, early satiety, abdominal pain, diarrhea, constipation, or changes in stool consistency or caliber. Denies coffee-ground emesis, hematemesis, hematochezia, or melanotic stools. GENITOURINARY: Denies frequency, urgency, nocturia, hematuria or incontinence (Storage/Irritative symptoms.) Low urinary stream, straining to void, urinary intermittency or hesitancy, splitting of the voiding stream, terminal dribbling. ENDOCRINOLOGIC: Denies polyuria, polydipsia, polyphagia or heat/cold intolerances. HEMATOLOGIC: Denies thrombophilia/previous clots, or coagulopathy/bleeding disorders. ONCOLOGIC: Denies personal history of malignancy. DERMATOLOGIC: Denies rashes or pruritus. PSYCHIATRIC: Denies any suicidal or homicidal ideation. Denies hallucinations. PHYSICAL EXAM GENERAL APPEARANCE: The patient is awake, alert, and oriented, in no acute cardiopulmonary distress. NEUROLOGICAL: Cranial nerves II-XII grossly intact. Motor is 5/5 in bilateral upper and lower extremities proximal to distal. No sensory deficits. HEENT: Face is symmetric. Pupils are equal and reactive. Extraocular movements are intact. NECK: Supple. No JVD. No thyromegaly. No submental, submandibular, pre-/postauricular, occipital or supraclavicular lymphadenopathy. CHEST: Normal chest expansion. No Telemetry. LUNGS: Absence of any rales, rhonchi or any wheezing. CARDIOVASCULAR: Regular. S1 and S2 normal. No appreciable rubs, murmurs or gallops. ABDOMEN: Soft, nontender, and nondistended. There is no rebound, voluntary guarding, or rigidity. : Deferred. No Espinosa. EXTREMITIES: Non-edematous and not cyanotic. No clubbing. Good capillary refill. SKIN: No skin breakdown. Vital Signs (last 8hr) Date Time Temp Pulse Resp B/P (MAP) Pulse Ox O2 Delivery O2 Flow Rate FiO2 02/08/25 09:40 97.7 93 16 101/66 95 Room Air 02/08/25 09:35 96 17 110/67 95 Room Air 02/08/25 09:30 95 16 107/68 95 Room Air 02/08/25 09:25 92 17 99/67 94 Room Air 02/08/25 09:20 87 16 99/64 95 Room Air 02/08/25 09:15 89 17 95/60 96 Room Air 02/08/25 09:10 97.5 93 16 97/61 97 Room Air 02/08/25 09:01 Mask 02/08/25 09:01 Mask 10.0 02/08/25 08:00 98.1 85 18 104/67 94 Room Air 02/08/25 08:00 97 Room Air* 0 21 LABS: Laboratory: Test 02/08/25 12:10 02/08/25 05:55 02/07/25 15:45 02/07/25 11:05 Range/Units Whole Blood Glucose 138 H 70-110 MG/DL White Blood Count 5.8 4.8-10.8 K/uL Red Blood Count 2.56 L 4.50-6.20 MIL/uL Hemoglobin 8.4 L 14.0-18.0 g/dL Hematocrit 25.3 L 42-54 % Mean Corpuscular Volume 98.8 79-99 fL Mean Corpuscular Hemoglobin 32.8 27.0-33.0 pg Mean Corpuscular Hemoglobin Concent 33.2 32.0-36.0 g/dL Red Cell Distribution Width 20.1 H 11.0-15.5 % Platelet Count 173 130-400 K/uL Mean Platelet Volume 8.2 7.5-10.5 fL Nucleated Red Blood Cells 0.0 0.0-0.19 % Sodium Level 135 L 136-145 mmol/L Potassium Level 4.3 3.5-5.1 mmol/L Chloride Level 105 101-111 mmol/L Carbon Dioxide Level 27 21-32 mmol/L Blood Urea Nitrogen 8 7-18 mg/dL Creatinine 0.6 0.5-1.3 mg/dL Glomerular Filtration Rate Calc 116 >90 mL/min Random Glucose 113 H 70-105 mg/dL Total Calcium 7.4 L 8.5-10.1 mg/dL Magnesium Level 1.60 L 1.80-2.40 mg/dL Total Bilirubin 0.8 0.2-1.0 mg/dL Aspartate Amino Transf (AST/SGOT) 23 10-37 U/L Alanine Aminotransferase (ALT/SGPT) 13 12-78 U/L Alkaline Phosphatase 156 H 50-136 U/L Total Protein 5.3 L 6.0-8.3 g/dL Albumin 2.0 L 3.5-5.0 g/dL Bedside Glucose Comment Notified Nurse Body Fluid Source ASCITES Body Fluid Volume 6100 mL Body Fluid Color YELLOW LT YELLOW Body Fluid Supernatant Appearance SLIGHTLY CLOUDY CLEAR Body Fluid WBC 74 /cu. mm. Body Fluid RBC 1035 /cu. mm. Body Fluid Neutrophils 3.0 % Body Fluid Lymphocytes 35 % Body Fluid Monocytes % 10 % Body Fluid Macrophages (%) 43 Body Fluid Mesothelial Cells (%) 9 % Test 02/07/25 09:48 02/07/25 09:29 02/07/25 05:48 Range/Units Iron Level 29 L 65-175 mcg/dL Total Iron Binding Capacity 77 L 250-450 mcg/dL Percent Iron Saturation 37.6 30-44 % Stool Occult Blood POSITIVE H NEGATIVE Immature Granulocyte % (Auto) 0.1 0-1 % Neutrophils (%) (Auto) 61.9 40.0-77.0 % Lymphocytes (%) (Auto) 22.9 21.0-51.0 % Monocytes (%) (Auto) 12.3 3.0-13.0 % Eosinophils (%) (Auto) 2.5 0.0-8.0 % Basophils (%) (Auto) 0.3 0.0-5.0 % Neutrophils # (Auto) 4.2 1.8-7.7 K/uL Lymphocytes # (Auto) 1.6 1.0-4.8 K/uL Monocytes # (Auto) 0.8 0.1-1.0 K/uL Eosinophils # (Auto) 0.17 0.00-0.70 K/uL Basophils # (Auto) 0.02 0.00-0.20 K/uL Absolute Immature Granulocyte (auto 0.01 0-1 K/uL Current Medications Medications (Trade) Dose Ordered Sig/Ronak Route PRN Reason Start Time Stop Time Status Last Admin Dose Admin Acetaminophen (TYLenol 325MG TAB) 650 mg Q4H PRN PO MILD PAIN (1-3) 02/02/25 07:00 03/04/25 06:59 Acetaminophen (TYLenol 325MG TAB) 650 mg Q6H PRN PO MILD PAIN (1-3) 02/02/25 07:00 02/02/25 07:05 DC Acetaminophen (TYLenol 325MG TAB) 650 mg Q6H PRN PO TEMPERATURE GREATER THAN 101.5 02/02/25 07:00 03/04/25 06:59 Acetaminophen/ Hydrocodone Bitart (NORco 5/325MG) 1 tab Q6H PRN PO MODERATE PAIN (4-6) 02/02/25 07:00 02/07/25 06:59 DC 02/06/25 20:01 1 TAB Al Hydroxide/Mg Hydroxide (MAALox PLUS 30ML) 30 ml Q6H PRN PO INDIGESTION 02/02/25 07:00 03/04/25 06:59 Albumin Human 100 ml @ 100 mls/hr AD IV 02/04/25 09:00 02/07/25 09:41 DC 02/04/25 09:37 100 MLS/HR Albumin Human 200 ml @ 0 mls/hr AD IV 02/07/25 11:30 02/08/25 11:29 DC 02/07/25 15:41 100 MLS/HR Albumin Human 250 ml @ 375 mls/hr AD IV 02/05/25 21:00 02/07/25 11:24 DC 02/05/25 22:04 375 MLS/HR Dextrose (D50w) 50 ml AD PRN IV HYPOGLYCEMIA PROTOCOL 02/02/25 07:00 02/03/25 07:51 DC Dextrose (D50w) 50 ml AD PRN IV HYPOGLYCEMIA PROTOCOL 02/03/25 08:00 03/05/25 07:59 Diphenhydramine HCl (BENAdryl INJ) 25 mg Q6H PRN IV SEVERE ITCHING/RASH 02/02/25 07:00 03/04/25 06:59 Famotidine (Pepcid 20mg Vial) 20 mg BID IV 02/02/25 09:00 02/08/25 09:09 DC 02/07/25 21:12 20 MG Famotidine (Pepcid 20mg Vial) 20 mg BID PRN IV NAUSEA/VOMITING 02/02/25 07:00 02/02/25 07:05 DC Furosemide (LASix 40MG TAB) 40 mg DAILY PO 02/03/25 09:00 02/02/25 10:15 DC Furosemide (LASix 40MG VIAL) 40 mg BID IVP 02/02/25 09:00 03/04/25 08:59 02/08/25 09:49 40 MG Glucagon (Glucagon 1mg Kit) 1 mg AD PRN IM HYPOGLYCEMIA PROTOCOL 02/02/25 07:00 02/03/25 07:52 DC Glucagon (Glucagon 1mg Kit) 1 mg AD PRN IM HYPOGLYCEMIA PROTOCOL 02/03/25 08:00 03/05/25 07:59 Guaifenesin/ Dextromethorphan (RobiTUSSin DM 200/20MG 10ML) 10 ml Q4H PRN PO COUGH 02/02/25 07:00 03/04/25 06:59 02/07/25 05:05 10 ML Heparin Sodium (Porcine) (HEParin 5,000 UNIT VIAL) 5,000 unit Q12H SQ 02/02/25 09:00 02/07/25 09:36 DC 02/06/25 21:46 5,000 UNIT Hydralazine HCl (APRESOLine 20MG INJ) 10 mg Q6H PRN IV For:SBP above 160;DBP above 90 02/02/25 07:00 03/04/25 06:59 Insulin Human Regular (humuLIN R 100 UNIT/ML 3ML) INSULIN SLIDING SCAL... ACHS SQ 02/02/25 07:30 03/04/25 07:29 Ketorolac Tromethamine (toRADol) 15 mg Q8H PRN IV MODERATE PAIN (4-6) 02/02/25 07:00 02/02/25 07:05 DC Lactulose (Constulose 20gm/ 30ml Udcup) 20 gm BID PO 02/02/25 21:00 03/04/25 20:59 02/08/25 09:51 20 GM Lactulose (Constulose 20gm/ 30ml Udcup) 20 gm BID PRN PO CONSTIPATION 02/02/25 07:00 03/04/25 06:59 Magnesium Sulfate 50 ml @ 0 mls/hr PROTOCOL IV 02/03/25 12:00 03/05/25 11:59 02/06/25 09:17 25 MLS/HR Magnesium Sulfate 50 ml @ 0 mls/hr PROTOCOL IV 02/05/25 07:00 02/05/25 06:43 DC Magnesium Sulfate 50 ml @ 0 mls/hr PROTOCOL IV 02/06/25 09:00 02/06/25 08:48 DC Magnesium Sulfate 50 ml @ 0 mls/hr PROTOCOL IV 02/07/25 10:00 02/07/25 09:36 DC Magnesium Sulfate 50 ml @ 0 mls/hr PROTOCOL IV 02/08/25 09:30 02/08/25 09:26 DC Magnesium Sulfate 50 ml @ 0 mls/hr PROTOCOL PRN IV other 02/02/25 07:00 02/03/25 11:49 DC Morphine Sulfate (morPHINE 2MG SYG) 1 mg Q4H PRN IVP SEVERE PAIN (7-10) 02/02/25 07:00 02/04/25 11:47 DC 02/03/25 03:20 1 MG Morphine Sulfate (morPHINE 2MG SYG) 2 mg Q4H PRN IVP SEVERE PAIN (7-10) 02/04/25 15:00 02/11/25 14:59 02/07/25 21:23 2 MG Multivitamins/ Minerals (Centrum) 1 tab DAILY PO 02/03/25 09:00 03/05/25 08:59 02/08/25 09:48 1 TAB Nitroglycerin (Nitrostat) 0.4 mg PROTOCOL PRN SL CHEST PAIN 02/02/25 07:00 03/04/25 06:59 Octreotide Acetate 1250 mcg/ Sodium Chloride 250 ml @ 0 mls/hr PROTOCOL IV 02/07/25 10:00 03/09/25 09:59 02/07/25 19:16 5 MLS/HR Ondansetron HCl (zoFRAN 4MG INJ) 4 mg Q6H PRN IV NAUSEA/VOMITING 02/02/25 07:00 03/04/25 06:59 02/06/25 13:01 4 MG Oxycodone/ Acetaminophen (perCOCET) 1 tab Q6H PRN PO SEVERE PAIN (7-10) 02/02/25 07:00 02/04/25 07:07 DC 02/03/25 13:00 1 TAB Pantoprazole Sodium 80 mg/ Sodium Chloride 100 ml @ 10 mls/hr Q10H IV 02/07/25 10:00 02/07/25 16:34 DC 02/07/25 15:42 10 MLS/HR Pantoprazole Sodium 80 mg/ Sodium Chloride 100 ml @ 10 mls/hr Q10H IV 02/07/25 22:00 03/09/25 21:59 02/08/25 03:49 10 MLS/HR Piperacillin Sod/ Tazobactam Sod 50 ml @ 12.5 mls/hr ONCE IV 02/07/25 16:30 02/07/25 20:30 DC 02/07/25 17:40 12.5 MLS/HR Piperacillin Sod/ Tazobactam Sod 50 ml @ 12.5 mls/hr Q8H IV 02/02/25 13:00 02/07/25 16:34 DC 02/07/25 16:19 12.5 MLS/HR Piperacillin Sod/ Tazobactam Sod 50 ml @ 12.5 mls/hr Q8H6 IV 02/07/25 22:00 02/17/25 21:59 02/08/25 06:18 12.5 MLS/HR Potassium Chloride 100 ml @ 100 mls/hr AD PRN IV POTASSIUM PROTOCOL 02/02/25 07:00 03/04/25 06:59 Potassium Chloride (K-Dur/Klor-Con 20meq) 20 meq AD PRN PO POTASSIUM PROTOCOL 02/02/25 07:00 03/04/25 06:59 02/03/25 08:47 20 MEQ Potassium Chloride (KCl 10% Elixir 20meq/15ml) 20 meq AD PRN PO POTASSIUM PROTOCOL 02/02/25 07:00 03/04/25 06:59 02/07/25 17:05 20 MEQ Spironolactone (Aldactone 25mg) 100 mg DAILY PO 02/03/25 09:00 03/05/25 08:59 02/08/25 09:49 100 MG Thiamine HCl (Vitamin B-1) 100 mg DAILY PO 02/03/25 09:00 03/05/25 08:59 02/08/25 09:49 100 MG Trazodone HCl (DesyREL/OlepTRO) 50 mg HS PO 02/05/25 21:00 03/07/25 20:59 02/07/25 21:13 50 MG Zolpidem Tartrate (AmbIEN) 5 mg HS PRN PO INSOMNIA 02/02/25 07:00 03/04/25 06:59 DIAGNOSTICS / RADIOLOGY: [ ] ASSESSMENT: Acute sepsis POA Large pleural effusion per chest x-ray and CT chest POA Large ascites in the abdomen per CT chest Alcoholic liver cirrhosis s/p multiple paracentesis POA Electrolyte imbalance hyponatremia Na 129 POA Multifactorial anemia POA Leukocytosis WBC 10.7 POA Cough POA PLAN: patient is seen and examined at bedside, discussed with the RN, no acute events overnight, at the time of my visit comfortably in bed, awake, following commands, transfusion of 1 unit of PRBC done yesterday, tolerated well, hemoglobin today 8.4, hematocrit 25.3. Patient evaluated by GI, plan for EGD tomorrow. Level 1.6, we will give 2 g of magnesium sulfate IV x1, keep potassium above four and magnesium above two. Discussed with the patient, all questions answered, agreed and understood the information provided. NEURO: Minimize central acting medications as possible. Fall Precautions. Well lighted room through the day and minimize interruptions through the night to prevent acute delirium. PULMONARY: Supplemental 02 as needed BiPAP as necessary, for respiratory distress Titrate Fio2 to keep Spo2 > or = 90% DuoNebs and CPT as needed IS hourly while awake for pulmonary hygiene prn Out of bed to chair as tolerated Maintain aspiration precautions at all times CARDIOVASCULAR: Follow hemodynamics. Vital signs per facility protocol GI & NUTRITION: Continue nutritional support Aspirations precautions Prokinetic agents and laxatives as needed KIDNEYS & ELECTROLYTES: Strict monitoring of intake and output Daily weights Avoid nephrotoxic agents Monitor electrolytes and replace as needed Goal urine output of 30mL/hr or 0.5mL/kg/hr Medications to be dosed according to renal function. Avoid contrast if possible ENDOCRINE: Maintain blood glucose between 100-180 at all times. Insulin sliding scale for blood glucose management Hypoglycemia and hyperglycemia protocol in place INFECTIOUS DISEASE: Trend temperature, WBC and procalcitonin level Follow cultures, deescalate antibiotics as soon as possible. Panculture if new onset fever HEMATOLOGY & COAGULATION: Monitor H&H. Keep Hgb > 7 Transfuse 1 unit of PRBC for Hgb < 7 Transfuse 1 pack of platelets of platelets < 20, 000 Watch for any signs and symptoms of bleeding SKIN: Pressure ulcer prevention per facility protocol Specialty mattress as needed ORTHO/REHAB Continue PT/OT PRN: MEDICATIONS Tylenol 650 mg po every 4 hrs for fever zofran 4 mg IV every 6 hrs for n/v Hydralazine 5 mg IV every 4 hrs systolic pressure > 160 bowel regiment: lactulose 20 gm PO BID PRN constipation Supportive measures: Continue GI and DVT prophylaxis Disposition: Pending improvement in clinical condition All questions answered time spent: > 35 min NELDA GRIJALVA MD Feb 08, 2025 12:41
[2025-02-09] VITALS (25 sets, daily range): BP systolic 97–150; BP diastolic 58–85; PULSE 61–103; RESP 14–20; TEMP 97.8–98.2; O2SAT 96
[2025-02-09 05:45] LABS: NUCLEATED RED BLOOD CELLS 0.0 % (0.0-0.19); PLATELET COUNT (AUTO) 180.0 K/uL (130-400); RED BLOOD CELL COUNT(AUTO) 2.63 MIL/uL (4.50-6.20); RED CELL DISTRIBUTION WIDTH 19.4 % (11.0-15.5); WHITE BLOOD COUNT (AUTO) 5.7 K/uL (4.8-10.8)
[2025-02-09 05:56] LABS: INR 1.32 (0.85-1.15)
[2025-02-09 06:00] LABS: ASPARTATE AMINOTRANSFERASE 31.0 U/L (10-37); CREATININE 0.7 mg/dL (0.5-1.3); GLOMERULAR FILTR. RATE CALC 111.0 mL/min (>90); GLUCOSE,RANDOM 95.0 mg/dL (70-105); SODIUM SERUM 136.0 mmol/L (136-145); TOTAL PROTEIN, SERUM 5.4 g/dL (6.0-8.3); UREA NITROGEN, BLOOD 5.0 mg/dL (7-18)
--- NOTE | 2025-02-09 08:25 | NUR ---
nursing note RECEIVED PATIENT FROM PACU. PATIENT HAD EGD DONE. PATIENT TRANSFERRED TO ROOM VIA BED. PATIENT REORIENTATED TO ROOM,VITAL SIGNS WERE STARTED. ANSWERED ANY QUESTIONS AND CONCERNS PATIENT HAD. BED SET TO LOWEST POSITION, CALL LIGHT WITHIN REACH.
--- NOTE | 2025-02-09 08:45 | PN ---
[facility] PROGRESS NOTE Date Patient Seen: Feb 09, 2025 Time of Visit: 08:45 Supervising Physician: Dr. osborne PROBLEM LIST: Acute sepsis POA Acute anemia with a hemoglobin of 7.0, S/B 1 unit PRBCs pending GI consultation Large Ascites s/p paracentesis 02/07/25 Large pleural effusion per chest x-ray and CT chest POA -s/p thoracentesis on 02/05/25 Alcoholic liver cirrhosis s/p multiple paracentesis POA Electrolyte imbalance hyponatremia Na 129 POA Multifactorial anemia POA Leukocytosis WBC 10.7 POA Cough POA INTERVAL HISTORY: Patient is seen at bedside, he remains on room air at this time. Patient denies any respiratory distress, no complications following thoracentesis on this admission. Patient continues with a workup by GI team for suspected blood loss anemia. Ascites appears to be minimal at this time. We will continue to follow while the patient remains admitted. Hemoglobin today 8.8 today following 1 unit PRBCs yesterday. Plan Continue to monitor SpO2 for possible new onset hypoxia secondary to recurrent ascites and pleural effusion REVIEW OF SYSTEMS: 12 point ROS reviewed with patient. Pertinent positives mentioned above. Otherwise negative. PHYSICAL EXAM: GENERAL: alert, weak, awake oriented x 3 HEENT: EOMI, Sclera non icteric, moist mucosa NECK: Supple, no JVD, trachea midline LUNGS: Clear breath sounds bilaterally. No wheezes HEART: Regular rate and rhythm. Normal S1 and S2, without murmurs ABD: Abdomen soft, nontender. Bowel sounds present EXT: No clubbing cyanosis or edema NEURO: Alert and oriented to person, follows commands Vital Signs (last 8hr) Date Time Temp Pulse Resp B/P (MAP) Pulse Ox O2 Delivery O2 Flow Rate FiO2 02/09/25 08:20 98.1 82 16 121/69 96 Room Air 02/09/25 08:15 84 15 110/70 95 Room Air 02/09/25 08:10 85 16 111/73 94 Room Air 02/09/25 08:05 87 16 128/71 95 Room Air 02/09/25 08:00 86 16 109/72 96 Room Air 02/09/25 07:55 84 14 99/66 96 Room Air 02/09/25 07:50 97.9 85 15 97/59 100 Nasal Cannula 3.0 02/09/25 04:00 98.1 94 16 101/58 95 Room Air LABS: Hematology Labs: Test 02/09/25 05:34 Range/Units White Blood Count 5.7 4.8-10.8 K/uL Red Blood Count 2.63 L 4.50-6.20 MIL/uL Hemoglobin 8.8 L 14.0-18.0 g/dL Hematocrit 26.2 L 42-54 % Mean Corpuscular Volume 99.6 H 79-99 fL Mean Corpuscular Hemoglobin 33.5 H 27.0-33.0 pg Mean Corpuscular Hemoglobin Concent 33.6 32.0-36.0 g/dL Red Cell Distribution Width 19.4 H 11.0-15.5 % Platelet Count 180 130-400 K/uL Mean Platelet Volume 7.8 7.5-10.5 fL Nucleated Red Blood Cells 0.0 0.0-0.19 % Chemistry Labs: Test 02/09/25 05:34 02/09/25 05:33 02/07/25 15:45 02/07/25 09:48 Range/Units Sodium Level 136 136-145 mmol/L Potassium Level 3.7 3.5-5.1 mmol/L Chloride Level 103 101-111 mmol/L Carbon Dioxide Level 26 21-32 mmol/L Blood Urea Nitrogen 5 L 7-18 mg/dL Creatinine 0.7 0.5-1.3 mg/dL Glomerular Filtration Rate Calc 111 >90 mL/min Random Glucose 95 70-105 mg/dL Total Calcium 7.6 L 8.5-10.1 mg/dL Magnesium Level 1.70 L 1.80-2.40 mg/dL Total Bilirubin 1.2 #H 0.2-1.0 mg/dL Aspartate Amino Transf (AST/SGOT) 31 10-37 U/L Alanine Aminotransferase (ALT/SGPT) 10 #L 12-78 U/L Alkaline Phosphatase 144 H 50-136 U/L Total Protein 5.4 L 6.0-8.3 g/dL Albumin 1.9 L 3.5-5.0 g/dL Whole Blood Glucose 96 70-110 MG/DL Bedside Glucose Comment Notified Nurse Iron Level 29 L 65-175 mcg/dL Total Iron Binding Capacity 77 L 250-450 mcg/dL Percent Iron Saturation 37.6 30-44 % Coagulation Labs: Test 02/09/25 05:34 Range/Units Prothrombin Time 13.6 H 9.6-11.6 SEC Prothromb Time International Ratio 1.32 H 0.85-1.15 Activated Partial Thromboplast Time 33.4 26.3-35.5 SEC DIAGNOSTICS / RADIOLOGY RESULTS: [ ] PLAN NEURO: Minimize central acting medications as possible. Maintain fall precautions, adequate lighting during the day PULMONARY: Supplemental 02 as needed. Maintain aspiration precautions at all times CARDIOVASCULAR: Follow hemodynamics. Vital signs per facility protocol GI & NUTRITION: Continue with nutritional support. Continue stool softeners and laxatives as needed. KIDNEYS & ELECTROLYTES: Strict monitoring of intake, output and overall fluid balance. Avoid nephrotoxic medications to the extent possible. Medications to be dosed according to renal function. Monitor electrolytes and replace as needed ENDOCRINE: Maintain blood glucose between 100-180 at all times. Hypoglycemia protocol in place INFECTIOUS DISEASE: Trend temperature, WBC and procalcitonin level Follow cultures, deescalate antibiotics as soon as possible. Panculture if new onset fever ONCOLOGY/HEMATOLOGY/COAGULATION: Monitor for s/s of bleeding Monitor hemoglobin, coagulation studies as needed SKIN: Pressure ulcer prevention per facility protocol Specialty mattress ORTHO/REHAB: Continue PT/OT Prophylaxis: Continue GI and DVT prophylaxis Code Status: Full Resuscitation Disposition: TBD Other: Total patient care time exceeds 35 minutes excluding all procedures. GLENN ATKINS PAC Feb 09, 2025 08:45
[2025-02-09] MEDS ORDERED: MAGNESIUM 2GM PREMIX 50ML 50 ML IV SCH (10:00)
[2025-02-09] MEDS ORDERED: LIDOCAINE HCL 1% MDV 50ML VIAL ONE (12:33)
[2025-02-09] MEDS ORDERED: IODIXANOL 320 MG/ML 100 ML VIAL ONE ×2 (12:33→15:16)
[2025-02-09] MEDS ORDERED: HEParin-NS 1,000 UNIT/500 ML 1,000 ML IV ONE (12:34)
--- NOTE | 2025-02-09 12:48 | PN ---
[facility] PROGRESS NOTE Date of Service: Feb 09, 2025 Time of Service: 12:46 SUBJECTIVE: [ 02/02 Patient is54 years old male with a past medical history of alcoholic cirrhosis of liver, multiple recurrent ascites s/p paracentesis, portal gastropathy, hyponatremia and pleural effusion who came to emergency department with a complaint of shortness of breaths, vomiting, progressive cough for the past three days. Patient stated that recently he was discharged on 01/25/2025 where he was diagnosed with moderate to large pleural effusion] Most recent vital signs temperature 99.9 pulse 106 respirations 16 blood pressure 110/75 patient is on room air satting 100%. WBC 10.7 Hemoglobin 8.2 hematocrit 25platelets 191 , urinalysis negative. Influenza A negative influenza B negative COVID negative. Toxicology negative. Sodium 129 potassium 4.0 CO2 26 BUN nine creatinine 0.7 [id number] lactic 1.8 ammonia 42. Chest x-ray showed moderate right pleural effusion with lung atelectasis no evidence of pneumothorax. Chest CT showed large right-sided pleural effusion which is causing atelectasis of the right lower lung. There is a tips shunt in place. 2D echo more than 65% left ventricle diastolic function is normal. We consulted electrical systems engineer for further evaluation/recommendation. Patient is pending thoracentesis on 02/02/2025. Patient will be admitted under hospitalist care for further evaluation/recommendation. 02/03 patient was seen by nurse practitioner and physician during rounding in room 319. Chest x-ray showed moderate right pleural effusion. CT chest showed large right pleural effusion/atelectasis and large ascites in the abdomen. 2D echo showed EF of more than 60% normal function. Patient is pending thoracentesis as per electrical systems engineer. We will also order IR for the paracentesis for large ascites in the abdomen. As per patient he sees Dr. Stephanie MONSON and his neck is appointment for the paracentesis is on Friday02/11/2025 at 5:00 p.m.. At this moment we will continue to monitor patient in the meantime. A.m. labs. 02/04/25 patient was seen by HOPPER FEEDER and physician. Retail Training Manager was unable to perform thoracentesis. At this moment they recommend to continue with furosemide and spironolactone and do paracentesis 1st. At this moment we do not have IR in the building. We will continue to monitor patient in the meantime. A.m. labs. Patient updated with the further plan and recommendations 02/05/25 patient was seen by nurse practitioner and physician during rounding in room 319. Dr. Persaud from pulmonology, attention to do thoracentesis yesterday 02/04/2025 unfortunately procedure was unsuccessful. We will order IR for thoracentesis and IR for paracentesis for Friday02/07/2025. Continue furosemide 40 mg IV push b.i.d. and spironolactone in the meantime. Continue to monitor patient in the meantime. A.m. labs 02/06/25 patient was seen by nurse practitioner and physician during rounding in room 319. WBC trending down today at 9.0 H&H stable. Blood culture negative x4 days. Patient continues to be on vanco and Zosyn. Pulmonology Dr. Morgan was in to perform thoracentesis yesterday 02/05/2025 on right side and was able to withdrawal 700 cc of pleural fluids. Patient is pending paracentesis by IR tomorrow 02/07/2025. We will continue to monitor patient in the meantime. A.m. labs] 02/07 the patient has been seen and examined at bedside, case discussed with the RN. The time of my visit he is comfortably in bed, back from having paracentesis by IR, total of 6.1 L removed, tolerated the procedure well. At the time of my visit he is alert oriented x3, hemodynamically stable, denies dizziness, no blurry vision, no chest pain, shortness shortness for breath, no nausea, no vomiting, no abdominal pain. Hemoglobin 7.0, stool occult blood positive. We will discontinue heparin subcutaneously, we will start the patient on Protonix and octreotide drip, we will transfuse 1 unit of PRBC, GI consultation requested, we will follow input and recommendation. Discussed with the patient, all questions answered, agreed and understood the information provided. 02/08 patient is seen and examined at bedside, discussed with the RN, no acute events overnight, at the time of my visit comfortably in bed, awake, following commands, transfusion of 1 unit of PRBC done yesterday, tolerated well, h emoglobin today 8.4, hematocrit 25.3. Patient evaluated by GI, plan for EGD tomorrow. Level 1.6, we will give 2 g of magnesium sulfate IV x1, keep potassium above four and magnesium above two. Discussed with the patient, all questions answered, agreed and understood the information provided. 02/09 the patient has been seen and examined at bedside, case discussed with the RN, no acute events overnight, patient is status post EGD today, tolerated well, findings of gastritis. Magnesium level of 1.7, replace IV per protocol to keep magnesium level above two. Plan for possible TIPS procedure today by intervention radiologist, discussed with the patient. REVIEW OF SYSTEMS CONSTITUTIONAL: Denies fevers, chills, or night sweats. No unintentional weight loss reported. NEUROLOGICAL: Denies headache, amaurosis fugax, motor weakness, sensory deficit, vertigo/spinning sensation, gait abnormalities, or tremors. ENT: No hearing loss, otalgia, otorrhea, rhinitis, rhinorrhea, hoarseness, or sore throat. CARDIOVASCULAR: Denies any exertional angina, dyspnea on exertion, orthopnea, paroxysmal nocturnal dyspnea, palpitations, life-threatening arrhythmias, claudication. PULMONARY: Denies any , cough, phlegm/sputum, hemoptysis, pleuritic chest pain. Complains of shortness of breaths SLEEP: Denies morning headaches, daytime somnolence or napping. Denies difficulty falling asleep, staying asleep, waking from sleep. Denies knowledge of snoring. GASTROINTESTINAL: Denies any type of dysphagia to either liquids or solids. Denies nausea, vomiting, pyrosis, early satiety, abdominal pain, diarrhea, constipation, or changes in stool consistency or caliber. Denies coffee-ground emesis, hematemesis, hematochezia, or melanotic stools. GENITOURINARY: Denies frequency, urgency, nocturia, hematuria or incontinence (Storage/Irritative symptoms.) Low urinary stream, straining to void, urinary intermittency or hesitancy, splitting of the voiding stream, terminal dribbling. ENDOCRINOLOGIC: Denies polyuria, polydipsia, polyphagia or heat/cold intolerances. HEMATOLOGIC: Denies thrombophilia/previous clots, or coagulopathy/bleeding disorders. ONCOLOGIC: Denies personal history of malignancy. DERMATOLOGIC: Denies rashes or pruritus. PSYCHIATRIC: Denies any suicidal or homicidal ideation. Denies hallucinations. PHYSICAL EXAM GENERAL APPEARANCE: The patient is awake, alert, and oriented, in no acute cardiopulmonary distress. NEUROLOGICAL: Cranial nerves II-XII grossly intact. Motor is 5/5 in bilateral upper and lower extremities proximal to distal. No sensory deficits. HEENT: Face is symmetric. Pupils are equal and reactive. Extraocular movements are intact. NECK: Supple. No JVD. No thyromegaly. No submental, submandibular, pre- /postauricular, occipital or supraclavicular lymphadenopathy. CHEST: Normal chest expansion. No Telemetry. LUNGS: Absence of any rales, rhonchi or any wheezing. CARDIOVASCULAR: Regular. S1 and S2 normal. No appreciable rubs, murmurs or gallops. ABDOMEN: Soft, nontender, and nondistended. There is no rebound, voluntary guarding, or rigidity. : Deferred. No Espinosa. EXTREMITIES: Non-edematous and not cyanotic. No clubbing. Good capillary refill. SKIN: No skin breakdown. Vital Signs (last 8hr) Date Time Temp Pulse Resp B/P (MAP) Pulse Ox O2 Delivery O2 Flow Rate FiO2 02/09/25 11:24 85 18 106/68 97 Room Air 02/09/25 10:24 84 17 99/58 90 Room Air 02/09/25 09:54 91 18 110/64 93 Room Air 02/09/25 09:24 89 17 120/77 96 Room Air 02/09/25 09:09 80 17 106/73 95 Room Air 02/09/25 08:54 82 18 116/77 94 Room Air 02/09/25 08:39 80 19 117/76 94 Room Air 02/09/25 08:24 82 18 107/69 97 Room Air 02/09/25 08:20 98.1 82 16 121/69 96 Room Air 02/09/25 08:15 84 15 110/70 95 Room Air 02/09/25 08:10 85 16 111/73 94 Room Air 02/09/25 08:05 87 16 128/71 95 Room Air 02/09/25 08:00 86 16 109/72 96 Room Air 02/09/25 07:55 84 14 99/66 96 Room Air 02/09/25 07:50 97.9 85 15 97/59 100 Nasal Cannula 3.0 LABS: Laboratory: Test 02/09/25 12:25 02/09/25 11:17 02/09/25 05:34 02/07/25 15:45 Range/Units Ammonia 27 11-32 umol/L Whole Blood Glucose 88 70-110 MG/DL White Blood Count 5.7 4.8-10.8 K/uL Red Blood Count 2.63 L 4.50-6.20 MIL/uL Hemoglobin 8.8 L 14.0-18.0 g/dL Hematocrit 26.2 L 42-54 % Mean Corpuscular Volume 99.6 H 79-99 fL Mean Corpuscular Hemoglobin 33.5 H 27.0-33.0 pg Mean Corpuscular Hemoglobin Concent 33.6 32.0-36.0 g/dL Red Cell Distribution Width 19.4 H 11.0-15.5 % Platelet Count 180 130-400 K/uL Mean Platelet Volume 7.8 7.5-10.5 fL Nucleated Red Blood Cells 0.0 0.0-0.19 % Prothrombin Time 13.6 H 9.6-11.6 SEC Prothromb Time International Ratio 1.32 H 0.85-1.15 Activated Partial Thromboplast Time 33.4 26.3-35.5 SEC Sodium Level 136 136-145 mmol/L Potassium Level 3.7 3.5-5.1 mmol/L Chloride Level 103 101-111 mmol/L Carbon Dioxide Level 26 21-32 mmol/L Blood Urea Nitrogen 5 L 7-18 mg/dL Creatinine 0.7 0.5-1.3 mg/dL Glomerular Filtration Rate Calc 111 >90 mL/min Random Glucose 95 70-105 mg/dL Total Calcium 7.6 L 8.5-10.1 mg/dL Magnesium Level 1.70 L 1.80-2.40 mg/dL Total Bilirubin 1.2 #H 0.2-1.0 mg/dL Aspartate Amino Transf (AST/SGOT) 31 10-37 U/L Alanine Aminotransferase (ALT/SGPT) 10 #L 12-78 U/L Alkaline Phosphatase 144 H 50-136 U/L Total Protein 5.4 L 6.0-8.3 g/dL Albumin 1.9 L 3.5-5.0 g/dL Bedside Glucose Comment Notified Nurse Current Medications Medications (Trade) Dose Ordered Sig/Ronak Route PRN Reason Start Time Stop Time Status Last Admin Dose Admin Acetaminophen (TYLenol 325MG TAB) 650 mg Q4H PRN PO MILD PAIN (1-3) 02/02/25 07:00 03/04/25 06:59 Acetaminophen (TYLenol 325MG TAB) 650 mg Q6H PRN PO MILD PAIN (1-3) 02/02/25 07:00 02/02/25 07:05 DC Acetaminophen (TYLenol 325MG TAB) 650 mg Q6H PRN PO TEMPERATURE GREATER THAN 101.5 02/02/25 07:00 03/04/25 06:59 Acetaminophen/ Hydrocodone Bitart (NORco 5/325MG) 1 tab Q6H PRN PO MODERATE PAIN (4-6) 02/02/25 07:00 02/07/25 06:59 DC 02/06/25 20:01 1 TAB Al Hydroxide/Mg Hydroxide (MAALox PLUS 30ML) 30 ml Q6H PRN PO INDIGESTION 02/02/25 07:00 03/04/25 06:59 Albumin Human 100 ml @ 100 mls/hr AD IV 02/04/25 09:00 02/07/25 09:41 DC 02/04/25 09:37 100 MLS/HR Albumin Human 200 ml @ 0 mls/hr AD IV 02/07/25 11:30 02/08/25 11:29 DC 02/07/25 15:41 100 MLS/HR Albumin Human 250 ml @ 375 mls/hr AD IV 02/05/25 21:00 02/07/25 11:24 DC 02/05/25 22:04 375 MLS/HR Dextrose (D50w) 50 ml AD PRN IV HYPOGLYCEMIA PROTOCOL 02/02/25 07:00 02/03/25 07:51 DC Dextrose (D50w) 50 ml AD PRN IV HYPOGLYCEMIA PROTOCOL 02/03/25 08:00 03/05/25 07:59 Diphenhydramine HCl (BENAdryl INJ) 25 mg Q6H PRN IV SEVERE ITCHING/RASH 02/02/25 07:00 03/04/25 06:59 Famotidine (Pepcid 20mg Vial) 20 mg BID IV 02/02/25 09:00 02/08/25 09:09 DC 02/07/25 21:12 20 MG Famotidine (Pepcid 20mg Vial) 20 mg BID PRN IV NAUSEA/VOMITING 02/02/25 07:00 02/02/25 07:05 DC Furosemide (LASix 40MG TAB) 40 mg DAILY PO 02/03/25 09:00 02/02/25 10:15 DC Furosemide (LASix 40MG VIAL) 40 mg BID IVP 02/02/25 09:00 03/04/25 08:59 02/08/25 21:09 40 MG Glucagon (Glucagon 1mg Kit) 1 mg AD PRN IM HYPOGLYCEMIA PROTOCOL 02/02/25 07:00 02/03/25 07:52 DC Glucagon (Glucagon 1mg Kit) 1 mg AD PRN IM HYPOGLYCEMIA PROTOCOL 02/03/25 08:00 03/05/25 07:59 Guaifenesin/ Dextromethorphan (RobiTUSSin DM 200/20MG 10ML) 10 ml Q4H PRN PO COUGH 02/02/25 07:00 03/04/25 06:59 02/07/25 05:05 10 ML Heparin Sodium (Porcine) (HEParin 5,000 UNIT VIAL) 5,000 unit Q12H SQ 02/02/25 09:00 02/07/25 09:36 DC 02/06/25 21:46 5,000 UNIT Hydralazine HCl (APRESOLine 20MG INJ) 10 mg Q6H PRN IV For:SBP above 160;DBP above 90 02/02/25 07:00 03/04/25 06:59 Insulin Human Regular (humuLIN R 100 UNIT/ML 3ML) INSULIN SLIDING SCAL... ACHS SQ 02/02/25 07:30 03/04/25 07:29 Ketorolac Tromethamine (toRADol) 15 mg Q8H PRN IV MODERATE PAIN (4-6) 02/02/25 07:00 02/02/25 07:05 DC Lactulose (Constulose 20gm/ 30ml Udcup) 20 gm BID PO 02/02/25 21:00 03/04/25 20:59 02/08/25 21:08 20 GM Lactulose (Constulose 20gm/ 30ml Udcup) 20 gm BID PRN PO CONSTIPATION 02/02/25 07:00 03/04/25 06:59 Magnesium Sulfate 50 ml @ 0 mls/hr PROTOCOL IV 02/03/25 12:00 03/05/25 11:59 02/06/25 09:17 25 MLS/HR Magnesium Sulfate 50 ml @ 0 mls/hr PROTOCOL IV 02/05/25 07:00 02/05/25 06:43 DC Magnesium Sulfate 50 ml @ 0 mls/hr PROTOCOL IV 02/06/25 09:00 02/06/25 08:48 DC Magnesium Sulfate 50 ml @ 0 mls/hr PROTOCOL IV 02/07/25 10:00 02/07/25 09:36 DC Magnesium Sulfate 50 ml @ 0 mls/hr PROTOCOL IV 02/08/25 09:30 02/08/25 09:26 DC Magnesium Sulfate 50 ml @ 0 mls/hr PROTOCOL IV 02/09/25 10:00 02/09/25 09:55 DC Magnesium Sulfate 50 ml @ 0 mls/hr PROTOCOL PRN IV other 02/02/25 07:00 02/03/25 11:49 DC Morphine Sulfate (morPHINE 2MG SYG) 1 mg Q4H PRN IVP SEVERE PAIN (7-10) 02/02/25 07:00 02/04/25 11:47 DC 02/03/25 03:20 1 MG Morphine Sulfate (morPHINE 2MG SYG) 2 mg Q4H PRN IVP SEVERE PAIN (7-10) 02/04/25 15:00 02/11/25 14:59 02/09/25 05:18 2 MG Multivitamins/ Minerals (Centrum) 1 tab DAILY PO 02/03/25 09:00 03/05/25 08:59 02/08/25 09:48 1 TAB Nitroglycerin (Nitrostat) 0.4 mg PROTOCOL PRN SL CHEST PAIN 02/02/25 07:00 03/04/25 06:59 Octreotide Acetate 1250 mcg/ Sodium Chloride 250 ml @ 0 mls/hr PROTOCOL IV 02/07/25 10:00 03/09/25 09:59 02/07/25 19:16 5 MLS/HR Ondansetron HCl (zoFRAN 4MG INJ) 4 mg Q6H PRN IV NAUSEA/VOMITING 02/02/25 07:00 03/04/25 06:59 02/06/25 13:01 4 MG Oxycodone/ Acetaminophen (perCOCET) 1 tab Q6H PRN PO SEVERE PAIN (7-10) 02/02/25 07:00 02/04/25 07:07 DC 02/03/25 13:00 1 TAB Pantoprazole Sodium 80 mg/ Sodium Chloride 100 ml @ 10 mls/hr Q10H IV 02/07/25 10:00 02/07/25 16:34 DC 02/07/25 15:42 10 MLS/HR Pantoprazole Sodium 80 mg/ Sodium Chloride 100 ml @ 10 mls/hr Q10H IV 02/07/25 22:00 03/09/25 21:59 02/09/25 04:53 10 MLS/HR Piperacillin Sod/ Tazobactam Sod 50 ml @ 12.5 mls/hr ONCE IV 02/07/25 16:30 02/07/25 20:30 DC 02/07/25 17:40 12.5 MLS/HR Piperacillin Sod/ Tazobactam Sod 50 ml @ 12.5 mls/hr Q8H IV 02/02/25 13:00 02/07/25 16:34 DC 02/07/25 16:19 12.5 MLS/HR Piperacillin Sod/ Tazobactam Sod 50 ml @ 12.5 mls/hr Q8H6 IV 02/07/25 22:00 02/17/25 21:59 02/09/25 04:58 12.5 MLS/HR Potassium Chloride 100 ml @ 100 mls/hr AD PRN IV POTASSIUM PROTOCOL 02/02/25 07:00 03/04/25 06:59 Potassium Chloride (K-Dur/Klor-Con 20meq) 20 meq AD PRN PO POTASSIUM PROTOCOL 02/02/25 07:00 03/04/25 06:59 02/03/25 08:47 20 MEQ Potassium Chloride (KCl 10% Elixir 20meq/15ml) 20 meq AD PRN PO POTASSIUM PROTOCOL 02/02/25 07:00 03/04/25 06:59 02/07/25 17:05 20 MEQ Spironolactone (Aldactone 25mg) 100 mg DAILY PO 02/03/25 09:00 03/05/25 08:59 02/08/25 09:49 100 MG Thiamine HCl (Vitamin B-1) 100 mg DAILY PO 02/03/25 09:00 03/05/25 08:59 02/08/25 09:49 100 MG Trazodone HCl (DesyREL/OlepTRO) 50 mg HS PO 02/05/25 21:00 03/07/25 20:59 02/08/25 21:10 50 MG Zolpidem Tartrate (AmbIEN) 5 mg HS PRN PO INSOMNIA 02/02/25 07:00 03/04/25 06:59 DIAGNOSTICS / RADIOLOGY: [ ] ASSESSMENT: Acute sepsis POA Large pleural effusion per chest x-ray and CT chest POA Large ascites in the abdomen per CT chest Alcoholic liver cirrhosis s/p multiple paracentesis POA Electrolyte imbalance hyponatremia Na 129 POA Multifactorial anemia POA Leukocytosis WBC 10.7 POA Cough POA PLAN: the patient has been seen and examined at bedside, case discussed with the RN, no acute events overnight, patient is status post EGD today, tolerated well, fin dings of gastritis. Magnesium level of 1.7, replace IV per protocol to keep magnesium level above two. Plan for possible TIPS procedure today by intervention radiologist, discussed with the patient. NEURO: Minimize central acting medications as possible. Fall Precautions. Well lighted room through the day and minimize interruptions through the night to prevent acute delirium. PULMONARY: Supplemental 02 as needed BiPAP as necessary, for respiratory distress Titrate Fio2 to keep Spo2 > or = 90% DuoNebs and CPT as needed IS hourly while awake for pulmonary hygiene prn Out of bed to chair as tolerated Maintain aspiration precautions at all times CARDIOVASCULAR: Follow hemodynamics. Vital signs per facility protocol GI & NUTRITION: Continue nutritional support Aspirations precautions Prokinetic agents and laxatives as needed KIDNEYS & ELECTROLYTES: Strict monitoring of intake and output Daily weights Avoid nephrotoxic agents Monitor electrolytes and replace as needed Goal urine output of 30mL/hr or 0.5mL/kg/hr Medications to be dosed according to renal function. Avoid contrast if possible ENDOCRINE: Maintain blood glucose between 100-180 at all times. Insulin sliding scale for blood glucose management Hypoglycemia and hyperglycemia protocol in place INFECTIOUS DISEASE: Trend temperature, WBC and procalcitonin level Follow cultures, deescalate antibiotics as soon as possible. Panculture if new onset fever HEMATOLOGY & COAGULATION: Monitor H&H. Keep Hgb > 7 Transfuse 1 unit of PRBC for Hgb < 7 Transfuse 1 pack of platelets of platelets < 20, 000 Watch for any signs and symptoms of bleeding SKIN: Pressure ulcer prevention per facility protocol Specialty mattress as needed ORTHO/REHAB Continue PT/OT PRN: MEDICATIONS Tylenol 650 mg po every 4 hrs for fever zofran 4 mg IV every 6 hrs for n/v Hydralazine 5 mg IV every 4 hrs systolic pressure > 160 bowel regiment: lactulose 20 gm PO BID PRN constipation Supportive measures: Continue GI and DVT prophylaxis Disposition: Pending improvement in clinical condition All questions answered time spent: > 35 min NELDA GRIJALVA MD Feb 09, 2025 12:48
[2025-02-09] MEDS ORDERED: MIDAZOLAM HCL 1 MG/ML 2ML VIAL ONE ×2 (13:15→14:55)
[2025-02-09] MEDS ORDERED: IOHEXOL-350 75 ML VIAL IV ONE (13:27)
[2025-02-09] MEDS ORDERED: HEParin-NS 1,000 UNIT/500 ML 500 ML IV ONE ×2 (14:13→14:55)
--- NOTE | 2025-02-09 17:22 | OP ---
DATE OF PROCEDURE: 02/09/2025 STUDIES PERFORMED: * Percutaneous fluoroscopy guided TIPS revision. * Portal and TIPS pressure measurement pre and post balloon angioplasty and stenting. * Portography pre and post TIPS revision. PROCEDURE DETAILS: The right neck was prepped and draped in the usual sterile technique. 1% Xylocaine was used for local anesthetic. Under ultrasound guidance, using a micropuncture kit, the right internal jugular vein was accessed. Through this, an angiographic wire and an 8-Kinyarwanda sheath were placed. A 5-Kinyarwanda C2 catheter was then placed into the TIPS shunt into the main portal vein. Portography demonstrated the portal vein to be patent, the TIPS shunt to be patent. The portal pressure was measured. Main pressures were 10 mm of water. Portal pressure was 18. Proximal TIPS shunt was 10 mm, mid portion is 14 mmHg, and distal TIPS shunt measurement is 12 mmHg. A balloon was deployed at the level of the mid shunt. The balloon catheter is 6 cm length, 12 mm diameter, which was angioplastied. In the mid portion of the stent, there is stenosis seen, which is not seen on the portography. The entire length of the TIPS shunt was angioplastied for 2 minutes each. Post angioplasty, there was still some narrowing seen. Therefore, a covered stent, 11 mm x 59 mm balloon expandable was deployed. This was angioplastied for approximately 30 seconds. Post stent deployment, portography was performed, demonstrated no stenosis identified. Followup portal pressure, main portal pressure was 13 mm, distal portal stent pressure is 11 mm, mid portal stent pressure is 12 mm, and proximal portal stent is 12 mm. The catheter, the wires, and the sheath were removed and the right neck hemostasis was obtained. IMPRESSION: TIPS revision of the TIPS shunt using covered stent and balloon angioplasty as described above. The patient tolerated the procedure well. RECOMMENDATIONS: * I would recommend a post revision tip Doppler tomorrow. * The patient is to return in 1 month and every 3 months for followup. TID: [id number] RECEIPT: [id number]
[2025-02-10] VITALS (7 sets, daily range): BP systolic 96–132; BP diastolic 50–92; PULSE 102–116; RESP 16–20; TEMP 98.3–99; O2SAT 94
[2025-02-10 05:09] LABS: NUCLEATED RED BLOOD CELLS 0.0 % (0.0-0.19); PLATELET COUNT (AUTO) 132.0 K/uL (130-400); RED BLOOD CELL COUNT(AUTO) 2.59 MIL/uL (4.50-6.20); RED CELL DISTRIBUTION WIDTH 19.0 % (11.0-15.5); WHITE BLOOD COUNT (AUTO) 6.8 K/uL (4.8-10.8)
[2025-02-10 05:37] LABS: ASPARTATE AMINOTRANSFERASE 29.0 U/L (10-37); CREATININE 0.7 mg/dL (0.5-1.3); GLOMERULAR FILTR. RATE CALC 111.0 mL/min (>90); GLUCOSE,RANDOM 128.0 mg/dL (70-105); SODIUM SERUM 140.0 mmol/L (136-145); TOTAL PROTEIN, SERUM 5.3 g/dL (6.0-8.3); UREA NITROGEN, BLOOD 6.0 mg/dL (7-18)
--- NOTE | 2025-02-10 09:27 | PN ---
[facility] PROGRESS NOTE Date Patient Seen: Feb 10, 2025 Time of Visit: 09:27 Supervising Physician: Dr. Persaud PROBLEM LIST: Acute sepsis POA Acute anemia with a hemoglobin of 7.0, S/B 1 unit PRBCs pending GI consultation Large Ascites s/p paracentesis 02/07/25 Large pleural effusion per chest x-ray and CT chest POA -s/p thoracentesis on 02/05/25 Alcoholic liver cirrhosis s/p multiple paracentesis POA Electrolyte imbalance hyponatremia Na 129 POA Multifactorial anemia POA Leukocytosis WBC 10.7 POA Cough POA INTERVAL HISTORY: Patient evaluated at bedside, he went for TIPS revision yesterday with interv entional radiology, His white count today is 6.8 with a hemoglobin of 8.5, Patient is on room air, respirations are given and unlabored and patient denies any acute respiratory distress today, He is likely to be discharged within the next 24 to 48 hours by primary, At this time, pulmonary services will sign off of the case. Should our services be required, please feel free to re-consult. Patient is clear to discharge from a pulmonary perspective without any antibiotics and to report to his PCP upon discharge Plan Continue to monitor SpO2 for possible new onset hypoxia secondary to recurrent ascites and pleural effusion REVIEW OF SYSTEMS: 12 point ROS reviewed with patient. Pertinent positives mentioned above. Otherwise negative. PHYSICAL EXAM: GENERAL: alert, weak, awake oriented x 3 HEENT: EOMI, Sclera non icteric, moist mucosa NECK: Supple, no JVD, trachea midline LUNGS: Clear breath sounds bilaterally. No wheezes HEART: Regular rate and rhythm. Normal S1 and S2, without murmurs ABD: Abdomen soft, nontender. Bowel sounds present EXT: No clubbing cyanosis or edema NEURO: Alert and oriented to person, follows commands Vital Signs (last 8hr) Date Time Temp Pulse Resp B/P (MAP) Pulse Ox O2 Delivery O2 Flow Rate FiO2 02/10/25 04:00 98.4 115 20 106/59 96 Room Air LABS: Hematology Labs: Test 02/10/25 04:53 Range/Units White Blood Count 6.8 4.8-10.8 K/uL Red Blood Count 2.59 L 4.50-6.20 MIL/uL Hemoglobin 8.5 L 14.0-18.0 g/dL Hematocrit 26.4 L 42-54 % Mean Corpuscular Volume 101.9 H 79-99 fL Mean Corpuscular Hemoglobin 32.8 27.0-33.0 pg Mean Corpuscular Hemoglobin Concent 32.2 32.0-36.0 g/dL Red Cell Distribution Width 19.0 H 11.0-15.5 % Platelet Count 132 # 130-400 K/uL Mean Platelet Volume 8.2 7.5-10.5 fL Nucleated Red Blood Cells 0.0 0.0-0.19 % Chemistry Labs: Test 02/10/25 05:37 02/10/25 04:53 02/09/25 12:25 Range/Units Whole Blood Glucose 133 H 70-110 MG/DL Sodium Level 140 136-145 mmol/L Potassium Level 3.5 3.5-5.1 mmol/L Chloride Level 105 101-111 mmol/L Carbon Dioxide Level 26 21-32 mmol/L Blood Urea Nitrogen 6 L 7-18 mg/dL Creatinine 0.7 0.5-1.3 mg/dL Glomerular Filtration Rate Calc 111 >90 mL/min Random Glucose 128 H 70-105 mg/dL Total Calcium 7.2 L 8.5-10.1 mg/dL Magnesium Level 1.50 L 1.80-2.40 mg/dL Total Bilirubin 0.6 # 0.2-1.0 mg/dL Aspartate Amino Transf (AST/SGOT) 29 10-37 U/L Alanine Aminotransferase (ALT/SGPT) 13 # 12-78 U/L Alkaline Phosphatase 149 H 50-136 U/L Total Protein 5.3 L 6.0-8.3 g/dL Albumin 1.7 L 3.5-5.0 g/dL Ammonia 27 11-32 umol/L Coagulation Labs: Test 02/09/25 05:34 Range/Units Prothrombin Time 13.6 H 9.6-11.6 SEC Prothromb Time International Ratio 1.32 H 0.85-1.15 Activated Partial Thromboplast Time 33.4 26.3-35.5 SEC DIAGNOSTICS / RADIOLOGY RESULTS: [ ] PLAN NEURO: Minimize central acting medications as possible. Maintain fall precautions, adequate lighting during the day PULMONARY: Supplemental 02 as needed. Maintain aspiration precautions at all times CARDIOVASCULAR: Follow hemodynamics. Vital signs per facility protocol GI & NUTRITION: Continue with nutritional support. Continue stool softeners and laxatives as needed. KIDNEYS & ELECTROLYTES: Strict monitoring of intake, output and overall fluid balance. Avoid nephrotoxic medications to the extent possible. Medications to be dosed according to renal function. Monitor electrolytes and replace as needed ENDOCRINE: Maintain blood glucose between 100-180 at all times. Hypoglycemia protocol in place INFECTIOUS DISEASE: Trend temperature, WBC and procalcitonin level Follow cultures, deescalate antibiotics as soon as possible. Panculture if new onset fever ONCOLOGY/HEMATOLOGY/COAGULATION: Monitor for s/s of bleeding Monitor hemoglobin, coagulation studies as needed SKIN: Pressure ulcer prevention per facility protocol Specialty mattress ORTHO/REHAB: Continue PT/OT Prophylaxis: Continue GI and DVT prophylaxis Code Status: Full Resuscitation Disposition: TBD Other: Total patient care time exceeds 35 minutes excluding all procedures. GLENN ATKINS PAC Feb 10, 2025 09:27
[2025-02-10] MEDS ORDERED: MAGNESIUM 2GM PREMIX 50ML 50 ML IV SCH (09:30)
--- NOTE | 2025-02-10 12:51 | DS ---
Discharge Summary Hospital Course Summary: The patient admitted to hospital February 02, 2025 with the following history of present illness: Patient is54 years old male with a past medical history of alcoholic cirrhosis of liver, multiple recurrent ascites s/p paracentesis, portal gastropathy, hyponatremia and pleural effusion who came to emergency department with a complaint of shortness of breaths, vomiting, progressive cough for the past three days. Patient stated that recently he was discharged on 01/25/2025 where he was diagnosed with moderate to large pleural effusion] Most recent vital signs temperature 99.9 pulse 106 respirations 16 blood pressure 110/75 patient is on room air satting 100%. WBC 10.7 Hemoglobin 8.2 hematocrit 25platelets 191 , urinalysis negative. Influenza A negative influenza B negative COVID negative. Toxicology negative. Sodium 129 potassium 4.0 CO2 26 BUN nine creatinine 0.7 [id number] lactic 1.8 ammonia 42. Chest x-ray showed moderate right pleural effusion with lung atelectasis no evidence of pneumothorax. Chest CT showed large right-sided pleural effusion which is causing atelectasis of the right lower lung. There is a tips shunt in place. 2D echo more than 65% left ventricle diastolic function is normal. We consulted corporate auditor for further evaluation/recommendation. Patient is pending thoracentesis on 02/02/2025. Patient will be admitted under hospitalist care for further evaluation/recommendation. HOSPITAL COURSE 02/02 Patient is54 years old male with a past medical history of alcoholic cirrhosis of liver, multiple recurrent ascites s/p paracentesis, portal gastropathy, hyponatremia and pleural effusion who came to emergency department with a complaint of shortness of breaths, vomiting, progressive cough for the past three days. Patient stated that recently he was discharged on 01/25/2025 where he was diagnosed with moderate to large pleural effusion] Most recent vital signs temperature 99.9 pulse 106 respirations 16 blood pressure 110/75 patient is on room air satting 100%. WBC 10.7 Hemoglobin 8.2 hematocrit 25platelets 191 , urinalysis negative. Influenza A negative influenza B negative COVID negative. Toxicology negative. Sodium 129 potassium 4.0 CO2 26 BUN nine creatinine 0.7 [id number] lactic 1.8 ammonia 42. Chest x-ray showed moderate right pleural effusion with lung atelectasis no evidence of pneumothorax. Chest CT showed large right-sided pleural effusion which is causing atelectasis of the right lower lung. There is a tips shunt in place. 2D echo more than 65% left ventricle diastolic function is normal. We consulted corporate auditor for further evaluation/recommendation. Patient is pending thoracentesis on 02/02/2025. Patient will be admitted under hospitalist care for further evaluation/recommendation. 02/03 patient was seen by nurse practitioner and physician during rounding in r oom 319. Chest x-ray showed moderate right pleural effusion. CT chest showed large right pleural effusion/atelectasis and large ascites in the abdomen. 2D echo showed EF of more than 60% normal function. Patient is pending thoracentesis as per corporate auditor. We will also order IR for the paracentesis for large ascites in the abdomen. As per patient he sees Dr. Stephanie MONSON and his neck is appointment for the paracentesis is on Friday02/11/2025 at 5:00 p.m.. At this moment we will continue to monitor patient in the meantime. A.m. labs. 02/04/25 patient was seen by SALAD COUNTER ATTENDANT and physician. Component Engineer was unable to perform thoracentesis. At this moment they recommend to continue with furosemide and spironolactone and do paracentesis 1st. At this moment we do not have IR in the building. We will continue to monitor patient in the meantime. A.m. labs. Patient updated with the further plan and recommendations 02/05/25 patient was seen by nurse practitioner and physician during rounding in room 319. Dr. Persaud from pulmonology, attention to do thoracentesis yesterday 02/04/2025 unfortunately procedure was unsuccessful. We will order IR for thoracentesis and IR for paracentesis for Friday02/07/2025. Continue furosemide 40 mg IV push b.i.d. and spironolactone in the meantime. Continue to monitor patient in the meantime. A.m. labs 02/06/25 patient was seen by nurse practitioner and physician during rounding in room 319. WBC trending down today at 9.0 H&H stable. Blood culture negative x4 days. Patient continues to be on vanco and Zosyn. Pulmonology Dr. Morgan was in to perform thoracentesis yesterday 02/05/2025 on right side and was able to withdrawal 700 cc of pleural fluids. Patient is pending paracentesis by IR tomorrow 02/07/2025. We will continue to monitor patient in the meantime. A.m. labs] 02/07 the patient has been seen and examined at bedside, case discussed with the RN. The time of my visit he is comfortably in bed, back from having paracentesis by IR, total of 6.1 L removed, tolerated the procedure well. At the time of my visit he is alert oriented x3, hemodynamically stable, denies dizziness, no blurry vision, no chest pain, shortness shortness for breath, no nausea, no vomiting, no abdominal pain. Hemoglobin 7.0, stool occult blood positive. We will discontinue heparin subcutaneously, we will start the patient on Protonix and octreotide drip, we will transfuse 1 unit of PRBC, GI consultation requested, we will follow input and recommendation. Discussed with the patient, all questions answered, agreed and understood the information provided. 02/08 patient is seen and examined at bedside, discussed with the RN, no acute events overnight, at the time of my visit comfortably in bed, awake, following commands, transfusion of 1 unit of PRBC done yesterday, tolerated well, hemoglobin today 8.4, hematocrit 25.3. Patient evaluated by GI, plan for EGD tomorrow. Level 1.6, we will give 2 g of magnesium sulfate IV x1, keep potassium above four and magnesium above two. Discussed with the patient, all questions answered, agreed and understood the information provided. 02/09 the patient has been seen and examined at bedside, case discussed with the RN, no acute events overnight, patient is status post EGD today, tolerated well, findings of gastritis. Magnesium level of 1.7, replace IV per protocol to keep magnesium level above two. Plan for possible TIPS procedure today by intervention radiologist, discussed with the patient. 02/10 patient is seen and examined at bedside, discussed with the RN, no acute events overnight, patient underwent tips revision 04/12/2024, tolerated the procedure well. Technical Illustrator(s): GI Services and intervention radiologist Procedure(s): [address] [place] [address], [place] [id number] DATE OF PROCEDURE: 02/09/2025 STUDIES PERFORMED: * Percutaneous fluoroscopy guided TIPS revision. * Portal and TIPS pressure measurement pre and post balloon angioplasty and stenting. * Portography pre and post TIPS revision. PROCEDURE DETAILS: The right neck was prepped and draped in the usual sterile technique. 1% Xylocaine was used for local anesthetic. Under ultrasound guidance, using a micropuncture kit, the right internal jugular vein was accessed. Through this, an angiographic wire and an 8-Paragu[place] sheath were placed. A 5-[place] C2 catheter was then placed into the TIPS shunt into the main portal vein. Portography demonstrated the portal vein to be patent, the TIPS shunt to be patent. The portal pressure was measured. Main pressures were 10 mm of water. Portal pressure was 18. Proximal TIPS shunt was 10 mm, mid portion is 14 mmHg, and distal TIPS shunt measurement is 12 mmHg. A balloon was deployed at the level of the mid shunt. The balloon catheter is 6 cm length, 12 mm diameter, which was angioplastied. In the mid portion of the stent, there is stenosis seen, which is not seen on the portography. The entire length of the TIPS shunt was angioplastied for 2 minutes each. Post angioplasty, there was still some narrowing seen. Therefore, a covered stent, 11 mm x 59 mm balloon expandable was deployed. This was angioplastied for approximately 30 seconds. Post stent deployment, portography was performed, demonstrated no stenosis identified. Followup portal pressure, main portal pressure was 13 mm, distal portal stent pressure is 11 mm, mid portal stent pressure is 12 mm, and proximal portal stent is 12 mm. The catheter, the wires, and the sheath were removed and the right neck hemostasis was obtained. IMPRESSION: TIPS revision of the TIPS shunt using covered stent and balloon angioplasty as described above. The patient tolerated the procedure well. RECOMMENDATIONS: * I would recommend a post revision tip Doppler tomorrow. * The patient is to return in 1 month and every 3 months for followup. TID: [id number] RECEIPT: [id number] Electronically Signed by: Electronically Co-Signed by: Assessment/Plan: Final diagnosis Acute sepsis POA Large pleural effusion per chest x-ray and CT chest POA Large ascites in the abdomen per CT chest Alcoholic liver cirrhosis s/p multiple paracentesis POA Electrolyte imbalance hyponatremia Na 129 POA Multifactorial anemia POA Leukocytosis WBC 10.7 POA Cough POA Discharge Instructions: The patient to follow with primary care physician as an outpatient, return to the hospital if condition changes, patient agreed with the plan and understood the information provided. Home Medications: Active Scripts Midodrine HCl (Midodrine HCl) 5 Mg Tablet, 1 TAB PO TID for 30 Days, #90 TAB 0 Refills Prov:MICHOACANO ORTIZ MD 01/18/25 Lactulose (Lactulose) 10 Gram/15 Ml Solution, 30 ML PO BID for constipation, #500 ML 1 Refill Prov:RADHA MEDINA 01/10/25 Spironolactone (Spironolactone) 100 Mg Tablet, 1 TAB PO DAILY for 30 Days, #30 TAB 0 Refills Prov:TING LOU MD 12/21/24 Furosemide (Furosemide) 40 Mg Tablet, 1 TAB PO DAILY for 30 Days, #30 TAB 0 Refills Prov:TING LOU MD 12/21/24 Reported Medications Sucralfate (Sucralfate) 1 Gram Tablet, 1 TAB PO QID for 30 Days, #120 TAB 0 Refills 02/02/25 Thiamine HCl (Vitamin B-1) 100 Mg Tablet, 1 TAB PO DAILY for 30 Days, #30 TAB 0 Refills 12/15/24 Multivitamin with Minerals (Daily Vitamin Formula-Minerals) 1 Each Tablet, 1 TAB PO DAILY for 30 Days, #30 TAB 0 Refills 12/15/24 Time spent arranging discharge: 31-60 minutes NELDA GRIJALVA MD Feb 10, 2025 12:51
--- NOTE | 2025-02-10 13:50 | HMCIMG ---
EXAM: US Abdomen complete CLINICAL HISTORY: Abdomen. Post TIPS revision doppler. TECHNIQUE: Real-time ultrasound of the abdomen (complete) with image documentation. LIMITATIONS: Limited examination due to patient's continuous coughing movements. COMPARISON: Prior sonography of the abdomen dated 01/13/2025 and 02/07/2025. Prior CT scan of the abdomen and pelvis dated January 13, 2025. FINDINGS: LIVER: The liver measures 13.7 cm with coarse echotexture. The right lobe demonstrates a hypoechoic structure seen, measuring 1.3 x 1.8 x 2.6 cm. This hepatic lesion was not present in the prior sonography of the abdomen dated 01/13/2025. GALLBLADDER: No gallstone. The gallbladder wall measures 0.2 cm. No pericholecystic fluid. COMMON BILE DUCT: CBD measures 3 mm. No dilation. PANCREAS: Pancreas is partly visualized. The distal pancreas is obscured by overlying bowel gas. KIDNEYS: Right kidney 9.8 x 5 x 5 cm. Left kidney measures 10.7 x 5.3 x 4.7 cm. No hydronephrosis. SPLEEN: Spleen measures 12.5 cm. AORTA: The aorta measures 2.4 cm in the proximal part while the middle and the distal parts are obscured. No aneurysm. IVC: IVC is patent. OTHER FINDINGS: TIPSS is patent. The peak systolic velocity is 82 in the proximal part, 54 in the mid part and 60 cm/sec in the distal part. There is diffuse ascites. IMPRESSION: 1. Patent TIPS with diffuse ascites, stable since the prior sonography of the abdomen dated 01/13/2025 and 02/07/[address] scan of the abdomen and pelvis dated January 13, 2025. 2. New hypoechoic lesion in the right hepatic lobe measuring 1.3 x 1.8 x 2.6 cm, not seen on 01/13/[address] scan of the abdomen and pelvis dated January 13, 2025. Recommend contrast enhanced triple phase CT scan / MRI for further evaluation. /[place]
[2025-02-10 15:59] LABS: ASPARTATE AMINOTRANSFERASE 31.0 U/L (10-37); CREATININE 0.6 mg/dL (0.5-1.3); GLOMERULAR FILTR. RATE CALC 116.0 mL/min (>90); GLUCOSE,RANDOM 107.0 mg/dL (70-105); SODIUM SERUM 137.0 mmol/L (136-145); TOTAL PROTEIN, SERUM 5.5 g/dL (6.0-8.3); UREA NITROGEN, BLOOD 6.0 mg/dL (7-18)
[2025-02-10] MEDS ORDERED: IOHEXOL-350 75 ML VIAL IV ONE (16:08)
--- NOTE | 2025-02-10 16:58 | PN ---
GASTROENTEROLOGY PROGRESS NOTE Date of Visit: Feb 10, 2025 Time of Visit: 16:58 Events / Notes: [ ] Review of Systems: CONSTITUTIONAL: No malaise or change in sensation of wellbeing. ENMT: No rhinorrhea, otorrhea, sinus pain, ear ache. CARDIOVASCULAR: No angina, palpitations, orthopnea or paroxysmal dyspnea. RESPIRATORY: No SOB. GASTROINTESTINAL: No abdominal pain, nausea, vomiting, diarrhea, hematemesis, melena or change in the patient's habitual bowel movements consistency/number. GENITOURINARY: No dysuria, hematuria or change in bladder continence. MUSCULOSKELETAL: No new muscle pain or decrease in muscular strength. No new joint swelling, redness or tenderness. SKIN: No new rash. Physical Exam: GEN: Awake, alert, oriented in person, time and place, and in no acute distress. HEENT: No sinus tenderness. Tympanic membranes were not examined. No rhinorrhea. Oral pharyngeal mucosa is pink, moist and within normal limits. Neck is supple with no cervical lymphadenopathy, thyromegaly or JVD. CHEST: Inspection, palpation and percussion of the chest were unremarkable. Lung auscultation revealed normal breath sounds bilaterally. CARDIAC: PMI is within normal limits. Heart sounds are regular. Normal S1, S2. No gallop or murmur. ABD: Soft, non-tender and not distended. No peritoneal signs on palpation. No organomegaly. Normal bowel sounds. EXT: No cyanosis or clubbing. No edema. SKIN: Intact. No rashes. JOINTS: No evidence of synovitis or acute arthritis. NEURO: Alert and oriented to name, place and person. Cranial nerve examination is unremarkable. No focal motor deficits. Normal speech. Gait is normal. Strength is normal. Vital Signs (last 8hr) Date Time Temp Pulse Resp B/P (MAP) Pulse Ox O2 Delivery O2 Flow Rate FiO2 02/10/25 16:00 98.2 102 16 112/59 97 Room Air 02/10/25 12:00 99.0 111 16 105/59 96 Room Air Laboratory: [ ] Laboratory: Test 02/10/25 15:35 02/10/25 11:28 02/10/25 04:53 02/09/25 12:25 Range/Units Sodium Level 137 136-145 mmol/L Potassium Level 3.5 3.5-5.1 mmol/L Chloride Level 103 101-111 mmol/L Carbon Dioxide Level 28 21-32 mmol/L Blood Urea Nitrogen 6 L 7-18 mg/dL Creatinine 0.6 0.5-1.3 mg/dL Glomerular Filtration Rate Calc 116 >90 mL/min Random Glucose 107 H 70-105 mg/dL Total Calcium 7.4 L 8.5-10.1 mg/dL Total Bilirubin 0.8 # 0.2-1.0 mg/dL Aspartate Amino Transf (AST/SGOT) 31 10-37 U/L Alanine Aminotransferase (ALT/SGPT) 11 L 12-78 U/L Alkaline Phosphatase 199 #H 50-136 U/L Total Protein 5.5 L 6.0-8.3 g/dL Albumin 1.9 L 3.5-5.0 g/dL Whole Blood Glucose 136 H 70-110 MG/DL White Blood Count 6.8 4.8-10.8 K/uL Red Blood Count 2.59 L 4.50-6.20 MIL/uL Hemoglobin 8.5 L 14.0-18.0 g/dL Hematocrit 26.4 L 42-54 % Mean Corpuscular Volume 101.9 H 79-99 fL Mean Corpuscular Hemoglobin 32.8 27.0-33.0 pg Mean Corpuscular Hemoglobin Concent 32.2 32.0-36.0 g/dL Red Cell Distribution Width 19.0 H 11.0-15.5 % Platelet Count 132 # 130-400 K/uL Mean Platelet Volume 8.2 7.5-10.5 fL Nucleated Red Blood Cells 0.0 0.0-0.19 % Magnesium Level 1.50 L 1.80-2.40 mg/dL Ammonia 27 11-32 umol/L Test 02/09/25 05:34 Range/Units Prothrombin Time 13.6 H 9.6-11.6 SEC Prothromb Time International Ratio 1.32 H 0.85-1.15 Activated Partial Thromboplast Time 33.4 26.3-35.5 SEC Current Medications Medications (Trade) Dose Ordered Sig/Ronak Route PRN Reason Start Time Stop Time Status Last Admin Dose Admin Acetaminophen (TYLenol 325MG TAB) 650 mg Q4H PRN PO MILD PAIN (1-3) 02/02/25 07:00 03/04/25 06:59 Acetaminophen (TYLenol 325MG TAB) 650 mg Q6H PRN PO MILD PAIN (1-3) 02/02/25 07:00 02/02/25 07:05 DC Acetaminophen (TYLenol 325MG TAB) 650 mg Q6H PRN PO TEMPERATURE GREATER THAN 101.5 02/02/25 07:00 03/04/25 06:59 Acetaminophen/ Hydrocodone Bitart (NORco 5/325MG) 1 tab Q6H PRN PO MODERATE PAIN (4-6) 02/02/25 07:00 02/07/25 06:59 DC 02/06/25 20:01 1 TAB Al Hydroxide/Mg Hydroxide (MAALox PLUS 30ML) 30 ml Q6H PRN PO INDIGESTION 02/02/25 07:00 03/04/25 06:59 Albumin Human 100 ml @ 100 mls/hr AD IV 02/04/25 09:00 02/07/25 09:41 DC 02/04/25 09:37 100 MLS/HR Albumin Human 200 ml @ 0 mls/hr AD IV 02/07/25 11:30 02/08/25 11:29 DC 02/07/25 15:41 100 MLS/HR Albumin Human 250 ml @ 375 mls/hr AD IV 02/05/25 21:00 02/07/25 11:24 DC 02/05/25 22:04 375 MLS/HR Dextrose (D50w) 50 ml AD PRN IV HYPOGLYCEMIA PROTOCOL 02/02/25 07:00 02/03/25 07:51 DC Dextrose (D50w) 50 ml AD PRN IV HYPOGLYCEMIA PROTOCOL 02/03/25 08:00 03/05/25 07:59 Diphenhydramine HCl (BENAdryl INJ) 25 mg Q6H PRN IV SEVERE ITCHING/RASH 02/02/25 07:00 03/04/25 06:59 Famotidine (Pepcid 20mg Vial) 20 mg BID IV 02/02/25 09:00 02/08/25 09:09 DC 02/07/25 21:12 20 MG Famotidine (Pepcid 20mg Vial) 20 mg BID PRN IV NAUSEA/VOMITING 02/02/25 07:00 02/02/25 07:05 DC Furosemide (LASix 40MG TAB) 40 mg DAILY PO 02/03/25 09:00 02/02/25 10:15 DC Furosemide (LASix 40MG VIAL) 40 mg BID IVP 02/02/25 09:00 03/04/25 08:59 02/10/25 08:38 40 MG Glucagon (Glucagon 1mg Kit) 1 mg AD PRN IM HYPOGLYCEMIA PROTOCOL 02/02/25 07:00 02/03/25 07:52 DC Glucagon (Glucagon 1mg Kit) 1 mg AD PRN IM HYPOGLYCEMIA PROTOCOL 02/03/25 08:00 03/05/25 07:59 Guaifenesin/ Dextromethorphan (RobiTUSSin DM 200/20MG 10ML) 10 ml Q4H PRN PO COUGH 02/02/25 07:00 03/04/25 06:59 02/07/25 05:05 10 ML Heparin Sodium (Porcine) (HEParin 5,000 UNIT VIAL) 5,000 unit Q12H SQ 02/02/25 09:00 02/07/25 09:36 DC 02/06/25 21:46 5,000 UNIT Hydralazine HCl (APRESOLine 20MG INJ) 10 mg Q6H PRN IV For:SBP above 160;DBP above 90 02/02/25 07:00 03/04/25 06:59 Insulin Human Regular (humuLIN R 100 UNIT/ML 3ML) INSULIN SLIDING SCAL... ACHS SQ 02/02/25 07:30 03/04/25 07:29 Ketorolac Tromethamine (toRADol) 15 mg Q8H PRN IV MODERATE PAIN (4-6) 02/02/25 07:00 02/02/25 07:05 DC Lactulose (Constulose 20gm/ 30ml Udcup) 20 gm BID PO 02/02/25 21:00 03/04/25 20:59 02/10/25 08:33 20 GM Lactulose (Constulose 20gm/ 30ml Udcup) 20 gm BID PRN PO CONSTIPATION 02/02/25 07:00 03/04/25 06:59 Magnesium Sulfate 50 ml @ 0 mls/hr PROTOCOL IV 02/03/25 12:00 03/05/25 11:59 02/10/25 05:49 25 MLS/HR Magnesium Sulfate 50 ml @ 0 mls/hr PROTOCOL IV 02/05/25 07:00 02/05/25 06:43 DC Magnesium Sulfate 50 ml @ 0 mls/hr PROTOCOL IV 02/06/25 09:00 02/06/25 08:48 DC Magnesium Sulfate 50 ml @ 0 mls/hr PROTOCOL IV 02/07/25 10:00 02/07/25 09:36 DC Magnesium Sulfate 50 ml @ 0 mls/hr PROTOCOL IV 02/08/25 09:30 02/08/25 09:26 DC Magnesium Sulfate 50 ml @ 0 mls/hr PROTOCOL IV 02/09/25 10:00 02/09/25 09:55 DC Magnesium Sulfate 50 ml @ 0 mls/hr PROTOCOL IV 02/10/25 09:30 02/10/25 09:28 DC Magnesium Sulfate 50 ml @ 0 mls/hr PROTOCOL PRN IV other 02/02/25 07:00 02/03/25 11:49 DC Morphine Sulfate (morPHINE 2MG SYG) 1 mg Q4H PRN IVP SEVERE PAIN (7-10) 02/02/25 07:00 02/04/25 11:47 DC 02/03/25 03:20 1 MG Morphine Sulfate (morPHINE 2MG SYG) 2 mg Q4H PRN IVP SEVERE PAIN (7-10) 02/04/25 15:00 02/09/25 17:59 DC 02/09/25 05:18 2 MG Multivitamins/ Minerals (Centrum) 1 tab DAILY PO 02/03/25 09:00 03/05/25 08:59 02/10/25 08:33 1 TAB Nitroglycerin (Nitrostat) 0.4 mg PROTOCOL PRN SL CHEST PAIN 02/02/25 07:00 03/04/25 06:59 Octreotide Acetate 1250 mcg/ Sodium Chloride 250 ml @ 0 mls/hr PROTOCOL IV 02/07/25 10:00 03/09/25 09:59 02/07/25 19:16 5 MLS/HR Ondansetron HCl (zoFRAN 4MG INJ) 4 mg Q6H PRN IV NAUSEA/VOMITING 02/02/25 07:00 03/04/25 06:59 02/06/25 13:01 4 MG Oxycodone/ Acetaminophen (perCOCET) 1 tab Q6H PRN PO SEVERE PAIN (7-10) 02/02/25 07:00 02/04/25 07:07 DC 02/03/25 13:00 1 TAB Pantoprazole Sodium 80 mg/ Sodium Chloride 100 ml @ 10 mls/hr Q10H IV 02/07/25 10:00 02/07/25 16:34 DC 02/07/25 15:42 10 MLS/HR Pantoprazole Sodium 80 mg/ Sodium Chloride 100 ml @ 10 mls/hr Q10H IV 02/07/25 22:00 03/09/25 21:59 02/10/25 12:54 10 MLS/HR Piperacillin Sod/ Tazobactam Sod 50 ml @ 12.5 mls/hr ONCE IV 02/07/25 16:30 02/07/25 20:30 DC 02/07/25 17:40 12.5 MLS/HR Piperacillin Sod/ Tazobactam Sod 50 ml @ 12.5 mls/hr Q8H IV 02/02/25 13:00 02/07/25 16:34 DC 02/07/25 16:19 12.5 MLS/HR Piperacillin Sod/ Tazobactam Sod 50 ml @ 12.5 mls/hr Q8H6 IV 02/07/25 22:00 02/17/25 21:59 02/10/25 14:15 12.5 MLS/HR Potassium Chloride 100 ml @ 100 mls/hr AD PRN IV POTASSIUM PROTOCOL 02/02/25 07:00 03/04/25 06:59 Potassium Chloride (K-Dur/Klor-Con 20meq) 20 meq AD PRN PO POTASSIUM PROTOCOL 02/02/25 07:00 03/04/25 06:59 02/10/25 06:54 20 MEQ Potassium Chloride (KCl 10% Elixir 20meq/15ml) 20 meq AD PRN PO POTASSIUM PROTOCOL 02/02/25 07:00 03/04/25 06:59 02/10/25 12:54 20 MEQ Spironolactone (Aldactone 25mg) 100 mg DAILY PO 02/03/25 09:00 03/05/25 08:59 02/10/25 08:33 100 MG Thiamine HCl (Vitamin B-1) 100 mg DAILY PO 02/03/25 09:00 03/05/25 08:59 02/10/25 08:33 100 MG Trazodone HCl (DesyREL/OlepTRO) 50 mg HS PO 02/05/25 21:00 03/07/25 20:59 02/09/25 21:10 50 MG Zolpidem Tartrate (AmbIEN) 5 mg HS PRN PO INSOMNIA 02/02/25 07:00 03/04/25 06:59 Diagnostics / Radiology: [COPY/PASTE HERE IF NO REPORTS PLEASE DELETE SECTION] Assessment: GI bleed Gastric varices Anemia Cirrhosis Pleural effusion Ascites Plan: IR for eval of TIPS patency Continue GI prophylaxis Advance diet as tolerated Avoid NSAIDs Antireflux measures Monitor H&H and transfuse as needed Call with questions, concerns or change in clinical status Patient to follow-up at clinic post discharge Thank you for this consult EMELIA STOKES ENGINE INSTALLER Feb 10, 2025 16:58
[2025-02-11] VITALS (8 sets, daily range): BP systolic 110–115; BP diastolic 57–80; PULSE 98–108; RESP 17–18; TEMP 97.7–98.6; O2SAT 97–100
--- NOTE | 2025-02-11 10:04 | PN ---
[facility] PROGRESS NOTE Date Patient Seen: Feb 11, 2025 Time of Visit: 10:04 Supervising Physician: Dr. Carrera PROBLEM LIST: Acute sepsis POA Acute anemia with a hemoglobin of 7.0, S/B 1 unit PRBCs pending GI consultation Large Ascites s/p paracentesis 02/07/25 Large pleural effusion per chest x-ray and CT chest POA -s/p thoracentesis on 02/05/25 Alcoholic liver cirrhosis s/p multiple paracentesis POA Electrolyte imbalance hyponatremia Na 129 POA Multifactorial anemia POA Leukocytosis WBC 10.7 POA Cough POA INTERVAL HISTORY: Patient is seen at bedside today, he remains on room air, resting comfortably at this time. Patient's white count today is 6.8 with a hemoglobin of 8.5. Renal function within normal limits. Patient continues GI workup at this time. If patient is to remain admitted to the floor we will order a chest x-ray to evaluate for pleural effusions as expected to be recurrent along with the patient's ascites. We will continue to monitor the patient's respiratory status on this admission. Plan Continue to monitor SpO2 for possible new onset hypoxia secondary to recurrent ascites and pleural effusion REVIEW OF SYSTEMS: 12 point ROS reviewed with patient. Pertinent positives mentioned above. Otherwise negative. PHYSICAL EXAM: GENERAL: alert, weak, awake oriented x 3 HEENT: EOMI, Sclera non icteric, moist mucosa NECK: Supple, no JVD, trachea midline LUNGS: Clear breath sounds bilaterally. No wheezes HEART: Regular rate and rhythm. Normal S1 and S2, without murmurs ABD: Abdomen soft, nontender. Bowel sounds present EXT: No clubbing cyanosis or edema NEURO: Alert and oriented to person, follows commands Vital Signs (last 8hr) Date Time Temp Pulse Resp B/P (MAP) Pulse Ox O2 Delivery O2 Flow Rate FiO2 02/11/25 09:39 100 Room Air* 0 21 02/11/25 07:55 98.1 98 17 110/57 100 Room Air 02/11/25 04:00 98.6 102 17 114/67 94 Room Air LABS: Hematology Labs: Test 02/10/25 04:53 Range/Units White Blood Count 6.8 4.8-10.8 K/uL Red Blood Count 2.59 L 4.50-6.20 MIL/uL Hemoglobin 8.5 L 14.0-18.0 g/dL Hematocrit 26.4 L 42-54 % Mean Corpuscular Volume 101.9 H 79-99 fL Mean Corpuscular Hemoglobin 32.8 27.0-33.0 pg Mean Corpuscular Hemoglobin Concent 32.2 32.0-36.0 g/dL Red Cell Distribution Width 19.0 H 11.0-15.5 % Platelet Count 132 # 130-400 K/uL Mean Platelet Volume 8.2 7.5-10.5 fL Nucleated Red Blood Cells 0.0 0.0-0.19 % Chemistry Labs: Test 02/11/25 05:22 02/10/25 15:35 02/10/25 04:53 02/09/25 12:25 Range/Units Whole Blood Glucose 121 H 70-110 MG/DL Sodium Level 137 136-145 mmol/L Potassium Level 3.5 3.5-5.1 mmol/L Chloride Level 103 101-111 mmol/L Carbon Dioxide Level 28 21-32 mmol/L Blood Urea Nitrogen 6 L 7-18 mg/dL Creatinine 0.6 0.5-1.3 mg/dL Glomerular Filtration Rate Calc 116 >90 mL/min Random Glucose 107 H 70-105 mg/dL Total Calcium 7.4 L 8.5-10.1 mg/dL Total Bilirubin 0.8 # 0.2-1.0 mg/dL Aspartate Amino Transf (AST/SGOT) 31 10-37 U/L Alanine Aminotransferase (ALT/SGPT) 11 L 12-78 U/L Alkaline Phosphatase 199 #H 50-136 U/L Total Protein 5.5 L 6.0-8.3 g/dL Albumin 1.9 L 3.5-5.0 g/dL Magnesium Level 1.50 L 1.80-2.40 mg/dL Ammonia 27 11-32 umol/L DIAGNOSTICS / RADIOLOGY RESULTS: [ ] PLAN NEURO: Minimize central acting medications as possible. Maintain fall precautions, adequate lighting during the day PULMONARY: Supplemental 02 as needed. Maintain aspiration precautions at all times CARDIOVASCULAR: Follow hemodynamics. Vital signs per facility protocol GI & NUTRITION: Continue with nutritional support. Continue stool softeners and laxatives as needed. KIDNEYS & ELECTROLYTES: Strict monitoring of intake, output and overall fluid balance. Avoid nephrotoxic medications to the extent possible. Medications to be dosed according to renal function. Monitor electrolytes and replace as needed ENDOCRINE: Maintain blood glucose between 100-180 at all times. Hypoglycemia protocol in place INFECTIOUS DISEASE: Trend temperature, WBC and procalcitonin level Follow cultures, deescalate antibiotics as soon as possible. Panculture if new onset fever ONCOLOGY/HEMATOLOGY/COAGULATION: Monitor for s/s of bleeding Monitor hemoglobin, coagulation studies as needed SKIN: Pressure ulcer prevention per facility protocol Specialty mattress ORTHO/REHAB: Continue PT/OT Prophylaxis: Continue GI and DVT prophylaxis Code Status: Full Resuscitation Disposition: TBD Other: Total patient care time exceeds 35 minutes excluding all procedures. GLENN ATKINS PAC Feb 11, 2025 10:04
--- NOTE | 2025-02-11 11:04 | HMCIMG ---
EXAM: CT ABDOMEN WITH AND WITHOUT IV CONTRAST CLINICAL HISTORY: New hypoechoic lesion noted in the right hepatic lobe on the recent sonography of the abdomen performed earlier on the same day at 04:52 hours. TECHNIQUE: Axial CT images of the abdomen were obtained before and after IV contrast administration. Multiplanar reconstructions. The protocol utilizes one or more of the following dose reduction techniques: automated exposure control, adjustment of mA and/or kV according to patient size, and/or use of iterative reconstruction technique. Total exam LCO=0991 mGy x cm. Total CTDI volume (mGy)=36.80. CONTRAST: IV Contrast: With and Without Intravenous Contrast COMPARISON: Prior CT scan of the abdomen and pelvis dated 01/13/2025 and prior sonography of the abdomen performed earlier on the same day at 04: 52 hours. FINDINGS: LOWER CHEST: There is a moderate right pleural effusion with compressive atelectasis of the lung bases. There is interval increase in the size of right sided pleural effusion with compressive atelectasis of the right lower and middle lobes. This has worsened since the prior examination. No cardiomegaly or pericardial effusion observed. LIVER: There is a calcific density nodule in the subcapsular location in segment VIII of the liver. Again seen is TIPS shunt between the right branch of the portal vein and hepatic veins , the lumen appearing patent, similar to the recent sonography performed earlier on the same day at 04:52 hours. The liver shows volume redistribution with enlargement of the caudate, left lobes, prominence of the fissure for ligamentum teres. Mild surface nodularity is present, consistent with liver cirrhosis. The liver is re demonstrated to be enlarged measuring 20 cm. There is a hepatic subcapsular collection / lesion (HU=30) measuring 1.2 cm in thickness and 7 cm in width, 2.6 cm in height, reduced in size since the prior examination where it measured 2 cm in thickness and 10 cm in width and 2.7 cm in height. This area in relation with the right hepatic lobe is visualized adjacent to the hepatic capsule, does not show any enhancement after intravenous contrast. GALLBLADDER AND BILIARY TREE: Again seen are dependent hyperdense contents in the gallbladder lumen, suggestive of sludge. No intra- or extrahepatic biliary ductal dilation. PANCREAS: No focal cystic or solid mass. SPLEEN: Again seen is a calcific density nodule in the spleen, suggestive of calcific granuloma. Again seen is splenomegaly measuring 15 cm. The anterior aspect of the spleen is unremarkable. ADRENAL GLANDS: The both adrenals are unremarkable. KIDNEYS AND URETERS: The kidneys are unremarkable. There is no hydronephrosis. In the delayed 7 minutes images, smooth, symmetric contrast excretion is present through the bilateral renal pelvicalyceal system and ureters. BOWEL: Diffusely thickened small bowel loops are present with mucosal hyperenhancement. No stomach or bowel distension. No focal inflammatory change observed. LYMPH NODES: Not enlarged mesenteric or retroperitoneal lymph nodes. PERITONEUM: Again seen is large ascites. No free air. VESSELS: The abdomen noted demonstrates atheromatous calcification without aneurysm or dissection. Aorta is non-dilated. There are multiple portosystemic collaterals in the upper abdomen, the anterior abdominal wall. ABDOMINAL WALL: No discrete abdominal or pelvic wall hernia observed. BONES: No lytic or blastic abnormality observed. Degenerative changes present in the lower lumbar spine. IMPRESSION: 1. Hepatic subcapsular collection/lesion adjacent to the right hepatic lobe, measuring 1.2 cm x 7 cm x 2.6 cm, decreased from prior CT scan of the abdomen dated January 13, 2025 , and without postcontrast enhancement. This is stable since the prior sonography performed earlier on the same day at 04: 52 hours. This is likely to be a resolving hematoma / inflammatory localised collection . 2. Moderate right pleural effusion with compressive atelectasis of the right lower and middle lobes, increased from prior CT scan of the abdomen dated January 13, 2025. 3. Several stable chronic and incidental findings are noted, as detailed in the body of the report. /Aamir
--- NOTE | 2025-02-11 16:23 | PN ---
[facility] PROGRESS NOTE Date of Service: Feb 11, 2025 Time of Service: 16:17 SUBJECTIVE: [ 02/02 Patient is54 years old male with a past medical history of alcoholic cirrhosis of liver, multiple recurrent ascites s/p paracentesis, portal gastropathy, hyponatremia and pleural effusion who came to emergency department with a complaint of shortness of breaths, vomiting, progressive cough for the past three days. Patient stated that recently he was discharged on 01/25/2025 where he was diagnosed with moderate to large pleural effusion] Most recent vital signs temperature 99.9 pulse 106 respirations 16 blood pressure 110/75 patient is on room air satting 100%. WBC 10.7 Hemoglobin 8.2 hematocrit 25platelets 191 , urinalysis negative. Influenza A negative influenza B negative COVID negative. Toxicology negative. Sodium 129 potassium 4.0 CO2 26 BUN nine creatinine 0.7 [id number] lactic 1.8 ammonia 42. Chest x-ray showed moderate right pleural effusion with lung atelectasis no evidence of pneumothorax. Chest CT showed large right-sided pleural effusion which is causing atelectasis of the right lower lung. There is a tips shunt in place. 2D echo more than 65% left ventricle diastolic function is normal. We consulted cigar head perforator for further evaluation/recommendation. Patient is pending thoracentesis on 02/02/2025. Patient will be admitted under hospitalist care for further evaluation/recommendation. 02/03 patient was seen by nurse practitioner and physician during rounding in room 319. Chest x-ray showed moderate right pleural effusion. CT chest showed large right pleural effusion/atelectasis and large ascites in the abdomen. 2D echo showed EF of more than 60% normal function. Patient is pending thoracentesis as per cigar head perforator. We will also order IR for the paracentesis for large ascites in the abdomen. As per patient he sees Dr. Stephanie MONSON and his neck is appointment for the paracentesis is on Friday02/11/2025 at 5:00 p.m.. At this moment we will continue to monitor patient in the meantime. A.m. labs. 02/04/25 patient was seen by MANAGER LVN and physician. Wood Piler was unable to perform thoracentesis. At this moment they recommend to continue with furosemide and spironolactone and do paracentesis 1st. At this moment we do not have IR in the building. We will continue to monitor patient in the meantime. A.m. labs. Patient updated with the further plan and recommendations 02/05/25 patient was seen by nurse practitioner and physician during rounding in room 319. Dr. Persaud from pulmonology, attention to do thoracentesis yesterday 02/04/2025 unfortunately procedure was unsuccessful. We will order IR for thoracentesis and IR for paracentesis for Friday02/07/2025. Continue furosemide 40 mg IV push b.i.d. and spironolactone in the meantime. Continue to monitor patient in the meantime. A.m. labs 02/06/25 patient was seen by nurse practitioner and physician during rounding in room 319. WBC trending down today at 9.0 H&H stable. Blood culture negative x4 days. Patient continues to be on vanco and Zosyn. Pulmonology Dr. Morgan was in to perform thoracentesis yesterday 02/05/2025 on right side and was able to withdrawal 700 cc of pleural fluids. Patient is pending paracentesis by IR tomorrow 02/07/2025. We will continue to monitor patient in the meantime. A.m. labs] 02/07 the patient has been seen and examined at bedside, case discussed with the RN. The time of my visit he is comfortably in bed, back from having paracentesis by IR, total of 6.1 L removed, tolerated the procedure well. At the time of my visit he is alert oriented x3, hemodynamically stable, denies dizziness, no blurry vision, no chest pain, shortness shortness for breath, no nausea, no vomiting, no abdominal pain. Hemoglobin 7.0, stool occult blood positive. We will discontinue heparin subcutaneously, we will start the patient on Protonix and octreotide drip, we will transfuse 1 unit of PRBC, GI consultation requested, we will follow input and recommendation. Discussed with the patient, all questions answered, agreed and understood the information provided. 02/08 patient is seen and examined at bedside, discussed with the RN, no acute events overnight, at the time of my visit comfortably in bed, awake, following commands, transfusion of 1 unit of PRBC done yesterday, tolerated well, h emoglobin today 8.4, hematocrit 25.3. Patient evaluated by GI, plan for EGD tomorrow. Level 1.6, we will give 2 g of magnesium sulfate IV x1, keep potassium above four and magnesium above two. Discussed with the patient, all questions answered, agreed and understood the information provided. 02/09 the patient has been seen and examined at bedside, case discussed with the RN, no acute events overnight, patient is status post EGD today, tolerated well, findings of gastritis. Magnesium level of 1.7, replace IV per protocol to keep magnesium level above two. Plan for possible TIPS procedure today by intervention radiologist, discussed with the patient. 02/11/25 Patient denies any new complaints today. No abdominal pain, shortness of breath, chest pain, nausea, vomiting, or bleeding. No fevers, chills, or other constitutional symptoms. REVIEW OF SYSTEMS CONSTITUTIONAL: Denies fevers, chills, or night sweats. No unintentional weight loss reported. NEUROLOGICAL: Denies headache, amaurosis fugax, motor weakness, sensory deficit, vertigo/spinning sensation, gait abnormalities, or tremors. ENT: No hearing loss, otalgia, otorrhea, rhinitis, rhinorrhea, hoarseness, or sore throat. CARDIOVASCULAR: Denies any exertional angina, dyspnea on exertion, orthopnea, paroxysmal nocturnal dyspnea, palpitations, life-threatening arrhythmias, claudication. PULMONARY: Denies any , cough, phlegm/sputum, hemoptysis, pleuritic chest pain. Complains of shortness of breaths SLEEP: Denies morning headaches, daytime somnolence or napping. Denies difficulty falling asleep, staying asleep, waking from sleep. Denies knowledge of snoring. GASTROINTESTINAL: Denies any type of dysphagia to either liquids or solids. Denies nausea, vomiting, pyrosis, early satiety, abdominal pain, diarrhea, constipation, or changes in stool consistency or caliber. Denies coffee-ground emesis, hematemesis, hematochezia, or melanotic stools. GENITOURINARY: Denies frequency, urgency, nocturia, hematuria or incontinence (Storage/Irritative symptoms.) Low urinary stream, straining to void, urinary intermittency or hesitancy, splitting of the voiding stream, terminal dribbling. ENDOCRINOLOGIC: Denies polyuria, polydipsia, polyphagia or heat/cold intolerances. HEMATOLOGIC: Denies thrombophilia/previous clots, or coagulopathy/bleeding disorders. ONCOLOGIC: Denies personal history of malignancy. DERMATOLOGIC: Denies rashes or pruritus. PSYCHIATRIC: Denies any suicidal or homicidal ideation. Denies hallucinations. PHYSICAL EXAM GENERAL APPEARANCE: The patient is awake, alert, and oriented, in no acute cardiopulmonary distress. NEUROLOGICAL: Cranial nerves II-XII grossly intact. Motor is 5/5 in bilateral upper and lower extremities proximal to distal. No sensory deficits. HEENT: Face is symmetric. Pupils are equal and reactive. Extraocular movements are intact. NECK: Supple. No JVD. No thyromegaly. No submental, submandibular, pre- /postauricular, occipital or supraclavicular lymphadenopathy. CHEST: Normal chest expansion. No Telemetry. LUNGS: Absence of any rales, rhonchi or any wheezing. CARDIOVASCULAR: Regular. S1 and S2 normal. No appreciable rubs, murmurs or gallops. ABDOMEN: Soft, nontender, and nondistended. There is no rebound, voluntary guarding, or rigidity. : Deferred. No Espinosa. EXTREMITIES: Non-edematous and not cyanotic. No clubbing. Good capillary refill. SKIN: No skin breakdown. Vital Signs (last 8hr) Date Time Temp Pulse Resp B/P (MAP) Pulse Ox O2 Delivery O2 Flow Rate FiO2 02/11/25 15:50 97.9 108 18 115/80 99 Room Air 02/11/25 11:27 98.1 98 18 115/66 98 Room Air 02/11/25 09:39 100 Room Air* 0 21 LABS: Laboratory: Test 02/11/25 15:35 02/10/25 15:35 02/10/25 04:53 Range/Units Whole Blood Glucose 106 70-110 MG/DL Sodium Level 137 136-145 mmol/L Potassium Level 3.5 3.5-5.1 mmol/L Chloride Level 103 101-111 mmol/L Carbon Dioxide Level 28 21-32 mmol/L Blood Urea Nitrogen 6 L 7-18 mg/dL Creatinine 0.6 0.5-1.3 mg/dL Glomerular Filtration Rate Calc 116 >90 mL/min Random Glucose 107 H 70-105 mg/dL Total Calcium 7.4 L 8.5-10.1 mg/dL Total Bilirubin 0.8 # 0.2-1.0 mg/dL Aspartate Amino Transf (AST/SGOT) 31 10-37 U/L Alanine Aminotransferase (ALT/SGPT) 11 L 12-78 U/L Alkaline Phosphatase 199 #H 50-136 U/L Total Protein 5.5 L 6.0-8.3 g/dL Albumin 1.9 L 3.5-5.0 g/dL White Blood Count 6.8 4.8-10.8 K/uL Red Blood Count 2.59 L 4.50-6.20 MIL/uL Hemoglobin 8.5 L 14.0-18.0 g/dL Hematocrit 26.4 L 42-54 % Mean Corpuscular Volume 101.9 H 79-99 fL Mean Corpuscular Hemoglobin 32.8 27.0-33.0 pg Mean Corpuscular Hemoglobin Concent 32.2 32.0-36.0 g/dL Red Cell Distribution Width 19.0 H 11.0-15.5 % Platelet Count 132 # 130-400 K/uL Mean Platelet Volume 8.2 7.5-10.5 fL Nucleated Red Blood Cells 0.0 0.0-0.19 % Magnesium Level 1.50 L 1.80-2.40 mg/dL Current Medications Medications (Trade) Dose Ordered Sig/Ronak Route PRN Reason Start Time Stop Time Status Last Admin Dose Admin Acetaminophen (TYLenol 325MG TAB) 650 mg Q4H PRN PO MILD PAIN (1-3) 02/02/25 07:00 03/04/25 06:59 Acetaminophen (TYLenol 325MG TAB) 650 mg Q6H PRN PO MILD PAIN (1-3) 02/02/25 07:00 02/02/25 07:05 DC Acetaminophen (TYLenol 325MG TAB) 650 mg Q6H PRN PO TEMPERATURE GREATER THAN 101.5 02/02/25 07:00 03/04/25 06:59 Acetaminophen/ Hydrocodone Bitart (NORco 5/325MG) 1 tab Q6H PRN PO MODERATE PAIN (4-6) 02/02/25 07:00 02/07/25 06:59 DC 02/06/25 20:01 1 TAB Al Hydroxide/Mg Hydroxide (MAALox PLUS 30ML) 30 ml Q6H PRN PO INDIGESTION 02/02/25 07:00 03/04/25 06:59 Albumin Human 100 ml @ 100 mls/hr AD IV 02/04/25 09:00 02/07/25 09:41 DC 02/04/25 09:37 100 MLS/HR Albumin Human 200 ml @ 0 mls/hr AD IV 02/07/25 11:30 02/08/25 11:29 DC 02/07/25 15:41 100 MLS/HR Albumin Human 250 ml @ 375 mls/hr AD IV 02/05/25 21:00 02/07/25 11:24 DC 02/05/25 22:04 375 MLS/HR Dextrose (D50w) 50 ml AD PRN IV HYPOGLYCEMIA PROTOCOL 02/02/25 07:00 02/03/25 07:51 DC Dextrose (D50w) 50 ml AD PRN IV HYPOGLYCEMIA PROTOCOL 02/03/25 08:00 03/05/25 07:59 Diphenhydramine HCl (BENAdryl INJ) 25 mg Q6H PRN IV SEVERE ITCHING/RASH 02/02/25 07:00 03/04/25 06:59 Famotidine (Pepcid 20mg Vial) 20 mg BID IV 02/02/25 09:00 02/08/25 09:09 DC 02/07/25 21:12 20 MG Famotidine (Pepcid 20mg Vial) 20 mg BID PRN IV NAUSEA/VOMITING 02/02/25 07:00 02/02/25 07:05 DC Furosemide (LASix 40MG TAB) 40 mg DAILY PO 02/03/25 09:00 02/02/25 10:15 DC Furosemide (LASix 40MG VIAL) 40 mg BID IVP 02/02/25 09:00 03/04/25 08:59 02/11/25 09:17 40 MG Glucagon (Glucagon 1mg Kit) 1 mg AD PRN IM HYPOGLYCEMIA PROTOCOL 02/02/25 07:00 02/03/25 07:52 DC Glucagon (Glucagon 1mg Kit) 1 mg AD PRN IM HYPOGLYCEMIA PROTOCOL 02/03/25 08:00 03/05/25 07:59 Guaifenesin/ Dextromethorphan (RobiTUSSin DM 200/20MG 10ML) 10 ml Q4H PRN PO COUGH 02/02/25 07:00 03/04/25 06:59 02/07/25 05:05 10 ML Heparin Sodium (Porcine) (HEParin 5,000 UNIT VIAL) 5,000 unit Q12H SQ 02/02/25 09:00 02/07/25 09:36 DC 02/06/25 21:46 5,000 UNIT Hydralazine HCl (APRESOLine 20MG INJ) 10 mg Q6H PRN IV For:SBP above 160;DBP above 90 02/02/25 07:00 03/04/25 06:59 Insulin Human Regular (humuLIN R 100 UNIT/ML 3ML) INSULIN SLIDING SCAL... ACHS SQ 02/02/25 07:30 03/04/25 07:29 Ketorolac Tromethamine (toRADol) 15 mg Q8H PRN IV MODERATE PAIN (4-6) 02/02/25 07:00 02/02/25 07:05 DC Lactulose (Constulose 20gm/ 30ml Udcup) 20 gm BID PO 02/02/25 21:00 03/04/25 20:59 02/11/25 09:17 20 GM Lactulose (Constulose 20gm/ 30ml Udcup) 20 gm BID PRN PO CONSTIPATION 02/02/25 07:00 03/04/25 06:59 Magnesium Sulfate 50 ml @ 0 mls/hr PROTOCOL IV 02/03/25 12:00 03/05/25 11:59 02/10/25 05:49 25 MLS/HR Magnesium Sulfate 50 ml @ 0 mls/hr PROTOCOL IV 02/05/25 07:00 02/05/25 06:43 DC Magnesium Sulfate 50 ml @ 0 mls/hr PROTOCOL IV 02/06/25 09:00 02/06/25 08:48 DC Magnesium Sulfate 50 ml @ 0 mls/hr PROTOCOL IV 02/07/25 10:00 02/07/25 09:36 DC Magnesium Sulfate 50 ml @ 0 mls/hr PROTOCOL IV 02/08/25 09:30 02/08/25 09:26 DC Magnesium Sulfate 50 ml @ 0 mls/hr PROTOCOL IV 02/09/25 10:00 02/09/25 09:55 DC Magnesium Sulfate 50 ml @ 0 mls/hr PROTOCOL IV 02/10/25 09:30 02/10/25 09:28 DC Magnesium Sulfate 50 ml @ 0 mls/hr PROTOCOL PRN IV other 02/02/25 07:00 02/03/25 11:49 DC Morphine Sulfate (morPHINE 2MG SYG) 1 mg Q4H PRN IVP SEVERE PAIN (7-10) 02/02/25 07:00 02/04/25 11:47 DC 02/03/25 03:20 1 MG Morphine Sulfate (morPHINE 2MG SYG) 2 mg Q4H PRN IVP SEVERE PAIN (7-10) 02/04/25 15:00 02/09/25 17:59 DC 02/09/25 05:18 2 MG Morphine Sulfate (morPHINE 2MG SYG) 2 mg Q4H PRN IVP SEVERE PAIN (7-10) 02/11/25 03:30 02/18/25 03:29 02/11/25 03:16 2 MG Multivitamins/ Minerals (Centrum) 1 tab DAILY PO 02/03/25 09:00 03/05/25 08:59 02/11/25 09:17 1 TAB Nitroglycerin (Nitrostat) 0.4 mg PROTOCOL PRN SL CHEST PAIN 02/02/25 07:00 03/04/25 06:59 Octreotide Acetate 1250 mcg/ Sodium Chloride 250 ml @ 0 mls/hr PROTOCOL IV 02/07/25 10:00 03/09/25 09:59 02/07/25 19:16 5 MLS/HR Ondansetron HCl (zoFRAN 4MG INJ) 4 mg Q6H PRN IV NAUSEA/VOMITING 02/02/25 07:00 03/04/25 06:59 02/11/25 03:13 4 MG Oxycodone/ Acetaminophen (perCOCET) 1 tab Q6H PRN PO SEVERE PAIN (7-10) 02/02/25 07:00 02/04/25 07:07 DC 02/03/25 13:00 1 TAB Pantoprazole Sodium 80 mg/ Sodium Chloride 100 ml @ 10 mls/hr Q10H IV 02/07/25 10:00 02/07/25 16:34 DC 02/07/25 15:42 10 MLS/HR Pantoprazole Sodium 80 mg/ Sodium Chloride 100 ml @ 10 mls/hr Q10H IV 02/07/25 22:00 03/09/25 21:59 02/11/25 09:36 10 MLS/HR Piperacillin Sod/ Tazobactam Sod 50 ml @ 12.5 mls/hr ONCE IV 02/07/25 16:30 02/07/25 20:30 DC 02/07/25 17:40 12.5 MLS/HR Piperacillin Sod/ Tazobactam Sod 50 ml @ 12.5 mls/hr Q8H IV 02/02/25 13:00 02/07/25 16:34 DC 02/07/25 16:19 12.5 MLS/HR Piperacillin Sod/ Tazobactam Sod 50 ml @ 12.5 mls/hr Q8H6 IV 02/07/25 22:00 02/17/25 21:59 02/11/25 15:59 12.5 MLS/HR Potassium Chloride 100 ml @ 100 mls/hr AD PRN IV POTASSIUM PROTOCOL 02/02/25 07:00 03/04/25 06:59 Potassium Chloride (K-Dur/Klor-Con 20meq) 20 meq AD PRN PO POTASSIUM PROTOCOL 02/02/25 07:00 03/04/25 06:59 02/11/25 09:19 20 MEQ Potassium Chloride (KCl 10% Elixir 20meq/15ml) 20 meq AD PRN PO POTASSIUM PROTOCOL 02/02/25 07:00 03/04/25 06:59 02/10/25 12:54 20 MEQ Spironolactone (Aldactone 25mg) 100 mg DAILY PO 02/03/25 09:00 03/05/25 08:59 02/11/25 09:17 100 MG Thiamine HCl (Vitamin B-1) 100 mg DAILY PO 02/03/25 09:00 03/05/25 08:59 02/11/25 09:17 100 MG Trazodone HCl (DesyREL/OlepTRO) 50 mg HS PO 02/05/25 21:00 03/07/25 20:59 02/10/25 21:06 50 MG Zolpidem Tartrate (AmbIEN) 5 mg HS PRN PO INSOMNIA 02/02/25 07:00 03/04/25 06:59 DIAGNOSTICS / RADIOLOGY: [Imaging: CT Abdomen (02/10): Resolving hepatic subcapsular collection, stable TIPS, moderate right pleural effusion (increased), large ascites, cirrhotic morphology. ] Assessment Alcoholic cirrhosis with portal hypertension, large ascites, and pleural effusion. Resolving hepatic subcapsular collection (likely hematoma/inflammatory, stable). Recent GI bleed (gastric varices, s/p EGD, on octreotide and PPI). Anemia (stable, post-transfusion, monitor H&H). Electrolyte abnormalities (hypomagnesemia, hypoalbuminemia, hyponatremiaimproving). Infection risk (on broad-spectrum antibiotics, WBC normalized, afebrile). TIPS in place (patent, IR to re-evaluate as needed). Plan Continue current medical management and supportive care. Maintain diuretic regimen for ascites/pleural effusion; monitor for electrolyte disturbances. Continue magnesium replacement to maintain Mg >2.0. Continue octreotide and pantoprazole for GI bleed prophylaxis. Monitor H&H daily; transfuse PRN for Hgb <7 or symptomatic anemia. Monitor for signs of infection; de-escalate antibiotics as appropriate. Maintain aspiration precautions and pulmonary hygiene. Encourage mobility as tolerated; continue PT/OT. Monitor intake/output, daily weights. IR to re-evaluate TIPS patency as per GI recommendations. Advance diet as tolerated. No new complaints; continue to monitor closely. Case discussed with the attending physician, above plan was formulated ATTESTATION BY PHYSICIAN I have seen and examined the patient. I reviewed the documentation, medical decision making, and treatment plan as noted by the mid-level provider above. I agree with the findings and plan of care. MAGALI KRAUSE MD, [facility] Feb 11, 2025 16:23
--- NOTE | 2025-02-11 19:29 | PN ---
GASTROENTEROLOGY PROGRESS NOTE Date of Visit: Feb 11, 2025 Time of Visit: 19:29 Events / Notes: [ ] Review of Systems: CONSTITUTIONAL: No malaise or change in sensation of wellbeing. ENMT: No rhinorrhea, otorrhea, sinus pain, ear ache. CARDIOVASCULAR: No angina, palpitations, orthopnea or paroxysmal dyspnea. RESPIRATORY: No SOB. GASTROINTESTINAL: No abdominal pain, nausea, vomiting, diarrhea, hematemesis, melena or change in the patient's habitual bowel movements consistency/number. GENITOURINARY: No dysuria, hematuria or change in bladder continence. MUSCULOSKELETAL: No new muscle pain or decrease in muscular strength. No new joint swelling, redness or tenderness. SKIN: No new rash. Physical Exam: GEN: Awake, alert, oriented in person, time and place, and in no acute distress. HEENT: No sinus tenderness. Tympanic membranes were not examined. No rhinorrhea. Oral pharyngeal mucosa is pink, moist and within normal limits. Neck is supple with no cervical lymphadenopathy, thyromegaly or JVD. CHEST: Inspection, palpation and percussion of the chest were unremarkable. Lung auscultation revealed normal breath sounds bilaterally. CARDIAC: PMI is within normal limits. Heart sounds are regular. Normal S1, S2. No gallop or murmur. ABD: Soft, non-tender and not distended. No peritoneal signs on palpation. No organomegaly. Normal bowel sounds. EXT: No cyanosis or clubbing. No edema. SKIN: Intact. No rashes. JOINTS: No evidence of synovitis or acute arthritis. NEURO: Alert and oriented to name, place and person. Cranial nerve examination is unremarkable. No focal motor deficits. Normal speech. Gait is normal. Strength is normal. Vital Signs (last 8hr) Date Time Temp Pulse Resp B/P (MAP) Pulse Ox O2 Delivery O2 Flow Rate FiO2 02/11/25 15:50 97.9 108 18 115/80 99 Room Air Laboratory: [ ] Laboratory: Test 02/11/25 15:35 02/10/25 15:35 02/10/25 04:53 Range/Units Whole Blood Glucose 106 70-110 MG/DL Sodium Level 137 136-145 mmol/L Potassium Level 3.5 3.5-5.1 mmol/L Chloride Level 103 101-111 mmol/L Carbon Dioxide Level 28 21-32 mmol/L Blood Urea Nitrogen 6 L 7-18 mg/dL Creatinine 0.6 0.5-1.3 mg/dL Glomerular Filtration Rate Calc 116 >90 mL/min Random Glucose 107 H 70-105 mg/dL Total Calcium 7.4 L 8.5-10.1 mg/dL Total Bilirubin 0.8 # 0.2-1.0 mg/dL Aspartate Amino Transf (AST/SGOT) 31 10-37 U/L Alanine Aminotransferase (ALT/SGPT) 11 L 12-78 U/L Alkaline Phosphatase 199 #H 50-136 U/L Total Protein 5.5 L 6.0-8.3 g/dL Albumin 1.9 L 3.5-5.0 g/dL White Blood Count 6.8 4.8-10.8 K/uL Red Blood Count 2.59 L 4.50-6.20 MIL/uL Hemoglobin 8.5 L 14.0-18.0 g/dL Hematocrit 26.4 L 42-54 % Mean Corpuscular Volume 101.9 H 79-99 fL Mean Corpuscular Hemoglobin 32.8 27.0-33.0 pg Mean Corpuscular Hemoglobin Concent 32.2 32.0-36.0 g/dL Red Cell Distribution Width 19.0 H 11.0-15.5 % Platelet Count 132 # 130-400 K/uL Mean Platelet Volume 8.2 7.5-10.5 fL Nucleated Red Blood Cells 0.0 0.0-0.19 % Magnesium Level 1.50 L 1.80-2.40 mg/dL Current Medications Medications (Trade) Dose Ordered Sig/Ronak Route PRN Reason Start Time Stop Time Status Last Admin Dose Admin Acetaminophen (TYLenol 325MG TAB) 650 mg Q4H PRN PO MILD PAIN (1-3) 02/02/25 07:00 03/04/25 06:59 Acetaminophen (TYLenol 325MG TAB) 650 mg Q6H PRN PO MILD PAIN (1-3) 02/02/25 07:00 02/02/25 07:05 DC Acetaminophen (TYLenol 325MG TAB) 650 mg Q6H PRN PO TEMPERATURE GREATER THAN 101.5 02/02/25 07:00 03/04/25 06:59 Acetaminophen/ Hydrocodone Bitart (NORco 5/325MG) 1 tab Q6H PRN PO MODERATE PAIN (4-6) 02/02/25 07:00 02/07/25 06:59 DC 02/06/25 20:01 1 TAB Al Hydroxide/Mg Hydroxide (MAALox PLUS 30ML) 30 ml Q6H PRN PO INDIGESTION 02/02/25 07:00 03/04/25 06:59 Albumin Human 100 ml @ 100 mls/hr AD IV 02/04/25 09:00 02/07/25 09:41 DC 02/04/25 09:37 100 MLS/HR Albumin Human 200 ml @ 0 mls/hr AD IV 02/07/25 11:30 02/08/25 11:29 DC 02/07/25 15:41 100 MLS/HR Albumin Human 250 ml @ 375 mls/hr AD IV 02/05/25 21:00 02/07/25 11:24 DC 02/05/25 22:04 375 MLS/HR Dextrose (D50w) 50 ml AD PRN IV HYPOGLYCEMIA PROTOCOL 02/02/25 07:00 02/03/25 07:51 DC Dextrose (D50w) 50 ml AD PRN IV HYPOGLYCEMIA PROTOCOL 02/03/25 08:00 03/05/25 07:59 Diphenhydramine HCl (BENAdryl INJ) 25 mg Q6H PRN IV SEVERE ITCHING/RASH 02/02/25 07:00 03/04/25 06:59 Famotidine (Pepcid 20mg Vial) 20 mg BID IV 02/02/25 09:00 02/08/25 09:09 DC 02/07/25 21:12 20 MG Famotidine (Pepcid 20mg Vial) 20 mg BID PRN IV NAUSEA/VOMITING 02/02/25 07:00 02/02/25 07:05 DC Furosemide (LASix 40MG TAB) 40 mg DAILY PO 02/03/25 09:00 02/02/25 10:15 DC Furosemide (LASix 40MG VIAL) 40 mg BID IVP 02/02/25 09:00 03/04/25 08:59 02/11/25 09:17 40 MG Glucagon (Glucagon 1mg Kit) 1 mg AD PRN IM HYPOGLYCEMIA PROTOCOL 02/02/25 07:00 02/03/25 07:52 DC Glucagon (Glucagon 1mg Kit) 1 mg AD PRN IM HYPOGLYCEMIA PROTOCOL 02/03/25 08:00 03/05/25 07:59 Guaifenesin/ Dextromethorphan (RobiTUSSin DM 200/20MG 10ML) 10 ml Q4H PRN PO COUGH 02/02/25 07:00 03/04/25 06:59 02/07/25 05:05 10 ML Heparin Sodium (Porcine) (HEParin 5,000 UNIT VIAL) 5,000 unit Q12H SQ 02/02/25 09:00 02/07/25 09:36 DC 02/06/25 21:46 5,000 UNIT Hydralazine HCl (APRESOLine 20MG INJ) 10 mg Q6H PRN IV For:SBP above 160;DBP above 90 02/02/25 07:00 03/04/25 06:59 Insulin Human Regular (humuLIN R 100 UNIT/ML 3ML) INSULIN SLIDING SCAL... ACHS SQ 02/02/25 07:30 03/04/25 07:29 Ketorolac Tromethamine (toRADol) 15 mg Q8H PRN IV MODERATE PAIN (4-6) 02/02/25 07:00 02/02/25 07:05 DC Lactulose (Constulose 20gm/ 30ml Udcup) 20 gm BID PO 02/02/25 21:00 03/04/25 20:59 02/11/25 09:17 20 GM Lactulose (Constulose 20gm/ 30ml Udcup) 20 gm BID PRN PO CONSTIPATION 02/02/25 07:00 03/04/25 06:59 Magnesium Sulfate 50 ml @ 0 mls/hr PROTOCOL IV 02/03/25 12:00 03/05/25 11:59 02/10/25 05:49 25 MLS/HR Magnesium Sulfate 50 ml @ 0 mls/hr PROTOCOL IV 02/05/25 07:00 02/05/25 06:43 DC Magnesium Sulfate 50 ml @ 0 mls/hr PROTOCOL IV 02/06/25 09:00 02/06/25 08:48 DC Magnesium Sulfate 50 ml @ 0 mls/hr PROTOCOL IV 02/07/25 10:00 02/07/25 09:36 DC Magnesium Sulfate 50 ml @ 0 mls/hr PROTOCOL IV 02/08/25 09:30 02/08/25 09:26 DC Magnesium Sulfate 50 ml @ 0 mls/hr PROTOCOL IV 02/09/25 10:00 02/09/25 09:55 DC Magnesium Sulfate 50 ml @ 0 mls/hr PROTOCOL IV 02/10/25 09:30 02/10/25 09:28 DC Magnesium Sulfate 50 ml @ 0 mls/hr PROTOCOL PRN IV other 02/02/25 07:00 02/03/25 11:49 DC Morphine Sulfate (morPHINE 2MG SYG) 1 mg Q4H PRN IVP SEVERE PAIN (7-10) 02/02/25 07:00 02/04/25 11:47 DC 02/03/25 03:20 1 MG Morphine Sulfate (morPHINE 2MG SYG) 2 mg Q4H PRN IVP SEVERE PAIN (7-10) 02/04/25 15:00 02/09/25 17:59 DC 02/09/25 05:18 2 MG Morphine Sulfate (morPHINE 2MG SYG) 2 mg Q4H PRN IVP SEVERE PAIN (7-10) 02/11/25 03:30 02/18/25 03:29 02/11/25 03:16 2 MG Multivitamins/ Minerals (Centrum) 1 tab DAILY PO 02/03/25 09:00 03/05/25 08:59 02/11/25 09:17 1 TAB Nitroglycerin (Nitrostat) 0.4 mg PROTOCOL PRN SL CHEST PAIN 02/02/25 07:00 03/04/25 06:59 Octreotide Acetate 1250 mcg/ Sodium Chloride 250 ml @ 0 mls/hr PROTOCOL IV 02/07/25 10:00 03/09/25 09:59 02/07/25 19:16 5 MLS/HR Ondansetron HCl (zoFRAN 4MG INJ) 4 mg Q6H PRN IV NAUSEA/VOMITING 02/02/25 07:00 03/04/25 06:59 02/11/25 03:13 4 MG Oxycodone/ Acetaminophen (perCOCET) 1 tab Q6H PRN PO SEVERE PAIN (7-10) 02/02/25 07:00 02/04/25 07:07 DC 02/03/25 13:00 1 TAB Pantoprazole Sodium 80 mg/ Sodium Chloride 100 ml @ 10 mls/hr Q10H IV 02/07/25 10:00 02/07/25 16:34 DC 02/07/25 15:42 10 MLS/HR Pantoprazole Sodium 80 mg/ Sodium Chloride 100 ml @ 10 mls/hr Q10H IV 02/07/25 22:00 03/09/25 21:59 02/11/25 09:36 10 MLS/HR Piperacillin Sod/ Tazobactam Sod 50 ml @ 12.5 mls/hr ONCE IV 02/07/25 16:30 02/07/25 20:30 DC 02/07/25 17:40 12.5 MLS/HR Piperacillin Sod/ Tazobactam Sod 50 ml @ 12.5 mls/hr Q8H IV 02/02/25 13:00 02/07/25 16:34 DC 02/07/25 16:19 12.5 MLS/HR Piperacillin Sod/ Tazobactam Sod 50 ml @ 12.5 mls/hr Q8H6 IV 02/07/25 22:00 02/17/25 21:59 02/11/25 15:59 12.5 MLS/HR Potassium Chloride 100 ml @ 100 mls/hr AD PRN IV POTASSIUM PROTOCOL 02/02/25 07:00 03/04/25 06:59 Potassium Chloride (K-Dur/Klor-Con 20meq) 20 meq AD PRN PO POTASSIUM PROTOCOL 02/02/25 07:00 03/04/25 06:59 02/11/25 09:19 20 MEQ Potassium Chloride (KCl 10% Elixir 20meq/15ml) 20 meq AD PRN PO POTASSIUM PROTOCOL 02/02/25 07:00 03/04/25 06:59 02/10/25 12:54 20 MEQ Spironolactone (Aldactone 25mg) 100 mg DAILY PO 02/03/25 09:00 03/05/25 08:59 02/11/25 09:17 100 MG Thiamine HCl (Vitamin B-1) 100 mg DAILY PO 02/03/25 09:00 03/05/25 08:59 02/11/25 09:17 100 MG Trazodone HCl (DesyREL/OlepTRO) 50 mg HS PO 02/05/25 21:00 03/07/25 20:59 02/10/25 21:06 50 MG Zolpidem Tartrate (AmbIEN) 5 mg HS PRN PO INSOMNIA 02/02/25 07:00 03/04/25 06:59 Diagnostics / Radiology: [COPY/PASTE HERE IF NO REPORTS PLEASE DELETE SECTION] Assessment: GI bleed Gastric varices Anemia Cirrhosis Pleural effusion Ascites Plan: IR for eval of TIPS patency Continue GI prophylaxis Advance diet as tolerated Avoid NSAIDs Antireflux measures Monitor H&H and transfuse as needed Call with questions, concerns or change in clinical status Patient to follow-up at clinic post discharge Thank you for this consult EMELIA STOKES [employer]TING M[employer]INE OPERATOR Feb 11, 2025 19:29
--- NOTE | 2025-02-11 21:00 | NUR ---
MED[facility] SHIFT ASSESSMENT DONE, PLEASE REFER TO CHART. PT CLAIMS OF ABDOMINAL PAINS. INSERTED SECOND PIV FOR MEDS, G20 TO YASMEEN, PT TOLERATED INSERTION WELL. MORPHINE IV GIVEN FOR PAIN AND DUE MEDS ADMINISTERED, TOLERATED WELL. WARM PACK APPLIED TO LEFT HAND IS SWOLLEN AND PT CLAIMS IT IS PAINFUL. KEPT RESTED AND COMFORTABLE IN BED. CALL LIGHT WITHIN REACH. WILL RE-ASSESS PT.
[2025-02-12] VITALS (8 sets, daily range): BP systolic 101–146; BP diastolic 55–80; PULSE 92–106; RESP 17–18; TEMP 97.4–98.7; O2SAT 95–99
--- NOTE | 2025-02-12 05:23 | NUR ---
MEDS PT RESTING IN BED. DENIES ANY NEEDS AT THIS TIME. NO DISTRESS NOTED. DUE ZOSYN DOSE HUNG. KEPT RESTED AND COMFORTABLE. CALL LIGHT WITHIN REACH. FOR MORE CARE.
--- NOTE | 2025-02-12 09:51 | PN ---
[facility] PROGRESS NOTE Date Patient Seen: Feb 12, 2025 Time of Visit: 09:50 Supervising Physician: DR. MITCHELL PROBLEM LIST: Acute sepsis POA Acute anemia with a hemoglobin of 7.0, S/B 1 unit PRBCs pending GI consultation Large Ascites s/p paracentesis 02/07/25 Large pleural effusion per chest x-ray and CT chest POA -s/p thoracentesis on 02/05/25 Alcoholic liver cirrhosis s/p multiple paracentesis POA Electrolyte imbalance hyponatremia Na 129 POA Multifactorial anemia POA Leukocytosis WBC 10.7 POA Cough POA INTERVAL HISTORY: Patient seen at bedside today, there is a recurrence of the pleural effusion and ascites on this admission. Patient at this time is on room air and denies any respiratory distress. Primary team is scheduling the patient for paracentesis with interventional radiology, likely to take place on Friday. We will continue to monitor the patient's respiratory status and the effusions for possible therapeutic thoracentesis should it be indicated. We will follow along after the paracentesis. Patient is pending probable discharge once fluid has been removed. No further changes from pulmonary at this time. Plan Continue to monitor SpO2 for possible new onset hypoxia secondary to recurrent ascites and pleural effusion Plan for paracentesis Friday with IR We will continue to follow and monitor pleural effusions for therapeutic thoracentesis REVIEW OF SYSTEMS: 12 point ROS reviewed with patient. Pertinent positives mentioned above. Otherwise negative. PHYSICAL EXAM: GENERAL: alert, weak, awake oriented x 3 HEENT: EOMI, Sclera non icteric, moist mucosa NECK: Supple, no JVD, trachea midline LUNGS: Clear breath sounds bilaterally. No wheezes HEART: Regular rate and rhythm. Normal S1 and S2, without murmurs ABD: Abdomen distended, fluid wave present Bowel sounds present EXT: No clubbing cyanosis or edema NEURO: Alert and oriented to person, follows commands Vital Signs (last 8hr) Date Time Temp Pulse Resp B/P (MAP) Pulse Ox O2 Delivery O2 Flow Rate FiO2 02/12/25 07:56 98.8 100 18 114/55 95 Room Air 02/12/25 03:38 97.3 92 17 101/61 100 Room Air 21 LABS: Chemistry Labs: Test 02/12/25 04:58 02/12/25 04:47 02/11/25 05:05 02/10/25 15:35 Range/Units Whole Blood Glucose 106 70-110 MG/DL Potassium Level 4.4 3.5-5.1 mmol/L Magnesium Level 1.70 L 1.80-2.40 mg/dL Tumor Marker Alpha Fetoprotein 2.3 0.0-8.4 ng/mL Sodium Level 137 136-145 mmol/L Chloride Level 103 101-111 mmol/L Carbon Dioxide Level 28 21-32 mmol/L Blood Urea Nitrogen 6 L 7-18 mg/dL Creatinine 0.6 0.5-1.3 mg/dL Glomerular Filtration Rate Calc 116 >90 mL/min Random Glucose 107 H 70-105 mg/dL Total Calcium 7.4 L 8.5-10.1 mg/dL Total Bilirubin 0.8 # 0.2-1.0 mg/dL Aspartate Amino Transf (AST/SGOT) 31 10-37 U/L Alanine Aminotransferase (ALT/SGPT) 11 L 12-78 U/L Alkaline Phosphatase 199 #H 50-136 U/L Total Protein 5.5 L 6.0-8.3 g/dL Albumin 1.9 L 3.5-5.0 g/dL DIAGNOSTICS / RADIOLOGY RESULTS: [ ] PLAN NEURO: Minimize central acting medications as possible. Maintain fall precautions, adequate lighting during the day PULMONARY: Supplemental 02 as needed. Maintain aspiration precautions at all times CARDIOVASCULAR: Follow hemodynamics. Vital signs per facility protocol GI & NUTRITION: Continue with nutritional support. Continue stool softeners and laxatives as needed. KIDNEYS & ELECTROLYTES: Strict monitoring of intake, output and overall fluid balance. Avoid nephrotoxic medications to the extent possible. Medications to be dosed according to renal function. Monitor electrolytes and replace as needed ENDOCRINE: Maintain blood glucose between 100-180 at all times. Hypoglycemia protocol in place INFECTIOUS DISEASE: Trend temperature, WBC and procalcitonin level Follow cultures, deescalate antibiotics as soon as possible. Panculture if new onset fever ONCOLOGY/HEMATOLOGY/COAGULATION: Monitor for s/s of bleeding Monitor hemoglobin, coagulation studies as needed SKIN: Pressure ulcer prevention per facility protocol Specialty mattress ORTHO/REHAB: Continue PT/OT Prophylaxis: Continue GI and DVT prophylaxis Code Status: Full Resuscitation Disposition: TBD Other: Total patient care time exceeds 35 minutes excluding all procedures. GLENN ATKINS PAC Feb 12, 2025 09:50
--- NOTE | 2025-02-12 13:29 | PN ---
[facility] PROGRESS NOTE Date of Service: Feb 12, 2025 Time of Service: 13:25 SUBJECTIVE: [ 02/02 Patient is54 years old male with a past medical history of alcoholic cirrhosis of liver, multiple recurrent ascites s/p paracentesis, portal gastropathy, hyponatremia and pleural effusion who came to emergency department with a complaint of shortness of breaths, vomiting, progressive cough for the past three days. Patient stated that recently he was discharged on 01/25/2025 where he was diagnosed with moderate to large pleural effusion] Most recent vital signs temperature 99.9 pulse 106 respirations 16 blood pressure 110/75 patient is on room air satting 100%. WBC 10.7 Hemoglobin 8.2 hematocrit 25platelets 191 , urinalysis negative. Influenza A negative influenza B negative COVID negative. Toxicology negative. Sodium 129 potassium 4.0 CO2 26 BUN nine creatinine 0.7 [id number] lactic 1.8 ammonia 42. Chest x-ray showed moderate right pleural effusion with lung atelectasis no evidence of pneumothorax. Chest CT showed large right-sided pleural effusion which is causing atelectasis of the right lower lung. There is a tips shunt in place. 2D echo more than 65% left ventricle diastolic function is normal. We consulted glass polisher for further evaluation/recommendation. Patient is pending thoracentesis on 02/02/2025. Patient will be admitted under hospitalist care for further evaluation/recommendation. 02/03 patient was seen by nurse practitioner and physician during rounding in room 319. Chest x-ray showed moderate right pleural effusion. CT chest showed large right pleural effusion/atelectasis and large ascites in the abdomen. 2D echo showed EF of more than 60% normal function. Patient is pending thoracentesis as per glass polisher. We will also order IR for the paracentesis for large ascites in the abdomen. As per patient he sees Dr. Stephanie MONSON and his neck is appointment for the paracentesis is on Friday02/11/2025 at 5:00 p.m.. At this moment we will continue to monitor patient in the meantime. A.m. labs. 02/04/25 patient was seen by MACHINE CLOTHING REPLACER and physician. Fish Hatchery Inspector was unable to perform thoracentesis. At this moment they recommend to continue with furosemide and spironolactone and do paracentesis 1st. At this moment we do not have IR in the building. We will continue to monitor patient in the meantime. A.m. labs. Patient updated with the further plan and recommendations 02/05/25 patient was seen by nurse practitioner and physician during rounding in room 319. Dr. Persaud from pulmonology, attention to do thoracentesis yesterday 02/04/2025 unfortunately procedure was unsuccessful. We will order IR for thoracentesis and IR for paracentesis for Friday02/07/2025. Continue furosemide 40 mg IV push b.i.d. and spironolactone in the meantime. Continue to monitor patient in the meantime. A.m. labs 02/06/25 patient was seen by nurse practitioner and physician during rounding in room 319. WBC trending down today at 9.0 H&H stable. Blood culture negative x4 days. Patient continues to be on vanco and Zosyn. Pulmonology Dr. Morgan was in to perform thoracentesis yesterday 02/05/2025 on right side and was able to withdrawal 700 cc of pleural fluids. Patient is pending paracentesis by IR tomorrow 02/07/2025. We will continue to monitor patient in the meantime. A.m. labs] 02/07 the patient has been seen and examined at bedside, case discussed with the RN. The time of my visit he is comfortably in bed, back from having paracentesis by IR, total of 6.1 L removed, tolerated the procedure well. At the time of my visit he is alert oriented x3, hemodynamically stable, denies dizziness, no blurry vision, no chest pain, shortness shortness for breath, no nausea, no vomiting, no abdominal pain. Hemoglobin 7.0, stool occult blood positive. We will discontinue heparin subcutaneously, we will start the patient on Protonix and octreotide drip, we will transfuse 1 unit of PRBC, GI consultation requested, we will follow input and recommendation. Discussed with the patient, all questions answered, agreed and understood the information provided. 02/08 patient is seen and examined at bedside, discussed with the RN, no acute events overnight, at the time of my visit comfortably in bed, awake, following commands, transfusion of 1 unit of PRBC done yesterday, tolerated well, h emoglobin today 8.4, hematocrit 25.3. Patient evaluated by GI, plan for EGD tomorrow. Level 1.6, we will give 2 g of magnesium sulfate IV x1, keep potassium above four and magnesium above two. Discussed with the patient, all questions answered, agreed and understood the information provided. 02/09 the patient has been seen and examined at bedside, case discussed with the RN, no acute events overnight, patient is status post EGD today, tolerated well, findings of gastritis. Magnesium level of 1.7, replace IV per protocol to keep magnesium level above two. Plan for possible TIPS procedure today by intervention radiologist, discussed with the patient. 02/11/25 Patient denies any new complaints today. No abdominal pain, shortness of breath, chest pain, nausea, vomiting, or bleeding. No fevers, chills, or other constitutional symptoms. 02/12/25 Patient was evaluated in the room. He denies any abdominal pain, but noted slight distention on his abdomen. We discuss the CT abd/pelvis report, he has increase pleural effusion, more than previous CT. I spoke with Pulmo team and probably benefit from Thora. So far, patient denies any SOB, we will continue to follow. REVIEW OF SYSTEMS CONSTITUTIONAL: Denies fevers, chills, or night sweats. No unintentional weight loss reported. NEUROLOGICAL: Denies headache, amaurosis fugax, motor weakness, sensory deficit, vertigo/spinning sensation, gait abnormalities, or tremors. ENT: No hearing loss, otalgia, otorrhea, rhinitis, rhinorrhea, hoarseness, or sore throat. CARDIOVASCULAR: Denies any exertional angina, dyspnea on exertion, orthopnea, paroxysmal nocturnal dyspnea, palpitations, life-threatening arrhythmias, claudication. PULMONARY: Denies any , cough, phlegm/sputum, hemoptysis, pleuritic chest pain. Complains of shortness of breaths SLEEP: Denies morning headaches, daytime somnolence or napping. Denies difficulty falling asleep, staying asleep, waking from sleep. Denies knowledge of snoring. GASTROINTESTINAL: Denies any type of dysphagia to either liquids or solids. Denies nausea, vomiting, pyrosis, early satiety, abdominal pain, diarrhea, constipation, or changes in stool consistency or caliber. Denies coffee-ground emesis, hematemesis, hematochezia, or melanotic stools. GENITOURINARY: Denies frequency, urgency, nocturia, hematuria or incontinence (Storage/Irritative symptoms.) Low urinary stream, straining to void, urinary intermittency or hesitancy, splitting of the voiding stream, terminal dribbling. ENDOCRINOLOGIC: Denies polyuria, polydipsia, polyphagia or heat/cold intolerances. HEMATOLOGIC: Denies thrombophilia/previous clots, or coagulopathy/bleeding disorders. ONCOLOGIC: Denies personal history of malignancy. DERMATOLOGIC: Denies rashes or pruritus. PSYCHIATRIC: Denies any suicidal or homicidal ideation. Denies hallucinations. PHYSICAL EXAM GENERAL APPEARANCE: The patient is awake, alert, and oriented, in no acute cardiopulmonary distress. NEUROLOGICAL: Cranial nerves II-XII grossly intact. Motor is 5/5 in bilateral upper and lower extremities proximal to distal. No sensory deficits. HEENT: Face is symmetric. Pupils are equal and reactive. Extraocular movements are intact. NECK: Supple. No JVD. No thyromegaly. No submental, submandibular, pre- /postauricular, occipital or supraclavicular lymphadenopathy. CHEST: Normal chest expansion. No Telemetry. LUNGS: Absence of any rales, rhonchi or any wheezing. CARDIOVASCULAR: Regular. S1 and S2 normal. No appreciable rubs, murmurs or gallops. ABDOMEN: Soft, nontender, and nondistended. There is no rebound, voluntary guarding, or rigidity. : Deferred. No Espinosa. EXTREMITIES: Non-edematous and not cyanotic. No clubbing. Good capillary refill. SKIN: No skin breakdown. Vital Signs (last 8hr) Date Time Temp Pulse Resp B/P (MAP) Pulse Ox O2 Delivery O2 Flow Rate FiO2 02/12/25 11:42 98.6 105 18 133/74 98 Room Air 02/12/25 08:00 95 Room Air* 0 21 02/12/25 07:56 98.8 100 18 114/55 95 Room Air LABS: Laboratory: Test 02/12/25 11:08 02/12/25 04:47 02/11/25 05:05 02/10/25 15:35 Range/Units Whole Blood Glucose 128 H 70-110 MG/DL Potassium Level 4.4 3.5-5.1 mmol/L Magnesium Level 1.70 L 1.80-2.40 mg/dL Tumor Marker Alpha Fetoprotein 2.3 0.0-8.4 ng/mL Sodium Level 137 136-145 mmol/L Chloride Level 103 101-111 mmol/L Carbon Dioxide Level 28 21-32 mmol/L Blood Urea Nitrogen 6 L 7-18 mg/dL Creatinine 0.6 0.5-1.3 mg/dL Glomerular Filtration Rate Calc 116 >90 mL/min Random Glucose 107 H 70-105 mg/dL Total Calcium 7.4 L 8.5-10.1 mg/dL Total Bilirubin 0.8 # 0.2-1.0 mg/dL Aspartate Amino Transf (AST/SGOT) 31 10-37 U/L Alanine Aminotransferase (ALT/SGPT) 11 L 12-78 U/L Alkaline Phosphatase 199 #H 50-136 U/L Total Protein 5.5 L 6.0-8.3 g/dL Albumin 1.9 L 3.5-5.0 g/dL Current Medications Medications (Trade) Dose Ordered Sig/Ronak Route PRN Reason Start Time Stop Time Status Last Admin Dose Admin Acetaminophen (TYLenol 325MG TAB) 650 mg Q4H PRN PO MILD PAIN (1-3) 02/02/25 07:00 03/04/25 06:59 Acetaminophen (TYLenol 325MG TAB) 650 mg Q6H PRN PO MILD PAIN (1-3) 02/02/25 07:00 02/02/25 07:05 DC Acetaminophen (TYLenol 325MG TAB) 650 mg Q6H PRN PO TEMPERATURE GREATER THAN 101.5 02/02/25 07:00 03/04/25 06:59 Acetaminophen/ Hydrocodone Bitart (NORco 5/325MG) 1 tab Q6H PRN PO MODERATE PAIN (4-6) 02/02/25 07:00 02/07/25 06:59 DC 02/06/25 20:01 1 TAB Al Hydroxide/Mg Hydroxide (MAALox PLUS 30ML) 30 ml Q6H PRN PO INDIGESTION 02/02/25 07:00 03/04/25 06:59 Albumin Human 100 ml @ 100 mls/hr AD IV 02/04/25 09:00 02/07/25 09:41 DC 02/04/25 09:37 100 MLS/HR Albumin Human 200 ml @ 0 mls/hr AD IV 02/07/25 11:30 02/08/25 11:29 DC 02/07/25 15:41 100 MLS/HR Albumin Human 250 ml @ 375 mls/hr AD IV 02/05/25 21:00 02/07/25 11:24 DC 02/05/25 22:04 375 MLS/HR Dextrose (D50w) 50 ml AD PRN IV HYPOGLYCEMIA PROTOCOL 02/02/25 07:00 02/03/25 07:51 DC Dextrose (D50w) 50 ml AD PRN IV HYPOGLYCEMIA PROTOCOL 02/03/25 08:00 03/05/25 07:59 Diphenhydramine HCl (BENAdryl INJ) 25 mg Q6H PRN IV SEVERE ITCHING/RASH 02/02/25 07:00 03/04/25 06:59 Famotidine (Pepcid 20mg Vial) 20 mg BID IV 02/02/25 09:00 02/08/25 09:09 DC 02/07/25 21:12 20 MG Famotidine (Pepcid 20mg Vial) 20 mg BID PRN IV NAUSEA/VOMITING 02/02/25 07:00 02/02/25 07:05 DC Furosemide (LASix 40MG TAB) 40 mg DAILY PO 02/03/25 09:00 02/02/25 10:15 DC Furosemide (LASix 40MG VIAL) 40 mg BID IVP 02/02/25 09:00 03/04/25 08:59 02/12/25 08:28 40 MG Glucagon (Glucagon 1mg Kit) 1 mg AD PRN IM HYPOGLYCEMIA PROTOCOL 02/02/25 07:00 02/03/25 07:52 DC Glucagon (Glucagon 1mg Kit) 1 mg AD PRN IM HYPOGLYCEMIA PROTOCOL 02/03/25 08:00 03/05/25 07:59 Guaifenesin/ Dextromethorphan (RobiTUSSin DM 200/20MG 10ML) 10 ml Q4H PRN PO COUGH 02/02/25 07:00 03/04/25 06:59 02/07/25 05:05 10 ML Heparin Sodium (Porcine) (HEParin 5,000 UNIT VIAL) 5,000 unit Q12H SQ 02/02/25 09:00 02/07/25 09:36 DC 02/06/25 21:46 5,000 UNIT Hydralazine HCl (APRESOLine 20MG INJ) 10 mg Q6H PRN IV For:SBP above 160;DBP above 90 02/02/25 07:00 03/04/25 06:59 Insulin Human Regular (humuLIN R 100 UNIT/ML 3ML) INSULIN SLIDING SCAL... ACHS SQ 02/02/25 07:30 03/04/25 07:29 Ketorolac Tromethamine (toRADol) 15 mg Q8H PRN IV MODERATE PAIN (4-6) 02/02/25 07:00 02/02/25 07:05 DC Lactulose (Constulose 20gm/ 30ml Udcup) 20 gm BID PO 02/02/25 21:00 03/04/25 20:59 02/12/25 08:28 20 GM Lactulose (Constulose 20gm/ 30ml Udcup) 20 gm BID PRN PO CONSTIPATION 02/02/25 07:00 03/04/25 06:59 Magnesium Sulfate 50 ml @ 0 mls/hr PROTOCOL IV 02/03/25 12:00 03/05/25 11:59 02/12/25 08:30 25 MLS/HR Magnesium Sulfate 50 ml @ 0 mls/hr PROTOCOL IV 02/05/25 07:00 02/05/25 06:43 DC Magnesium Sulfate 50 ml @ 0 mls/hr PROTOCOL IV 02/06/25 09:00 02/06/25 08:48 DC Magnesium Sulfate 50 ml @ 0 mls/hr PROTOCOL IV 02/07/25 10:00 02/07/25 09:36 DC Magnesium Sulfate 50 ml @ 0 mls/hr PROTOCOL IV 02/08/25 09:30 02/08/25 09:26 DC Magnesium Sulfate 50 ml @ 0 mls/hr PROTOCOL IV 02/09/25 10:00 02/09/25 09:55 DC Magnesium Sulfate 50 ml @ 0 mls/hr PROTOCOL IV 02/10/25 09:30 02/10/25 09:28 DC Magnesium Sulfate 50 ml @ 0 mls/hr PROTOCOL PRN IV other 02/02/25 07:00 02/03/25 11:49 DC Morphine Sulfate (morPHINE 2MG SYG) 1 mg Q4H PRN IVP SEVERE PAIN (7-10) 02/02/25 07:00 02/04/25 11:47 DC 02/03/25 03:20 1 MG Morphine Sulfate (morPHINE 2MG SYG) 2 mg Q4H PRN IVP SEVERE PAIN (7-10) 02/04/25 15:00 02/09/25 17:59 DC 02/09/25 05:18 2 MG Morphine Sulfate (morPHINE 2MG SYG) 2 mg Q4H PRN IVP SEVERE PAIN (7-10) 02/11/25 03:30 02/18/25 03:29 02/12/25 08:28 2 MG Multivitamins/ Minerals (Centrum) 1 tab DAILY PO 02/03/25 09:00 03/05/25 08:59 02/12/25 08:28 1 TAB Nitroglycerin (Nitrostat) 0.4 mg PROTOCOL PRN SL CHEST PAIN 02/02/25 07:00 03/04/25 06:59 Octreotide Acetate 1250 mcg/ Sodium Chloride 250 ml @ 0 mls/hr PROTOCOL IV 02/07/25 10:00 02/12/25 11:18 DC 02/07/25 19:16 5 MLS/HR Ondansetron HCl (zoFRAN 4MG INJ) 4 mg Q6H PRN IV NAUSEA/VOMITING 02/02/25 07:00 03/04/25 06:59 02/11/25 03:13 4 MG Oxycodone/ Acetaminophen (perCOCET) 1 tab Q6H PRN PO SEVERE PAIN (7-10) 02/02/25 07:00 02/04/25 07:07 DC 02/03/25 13:00 1 TAB Pantoprazole Sodium (PROTonix 40MG TAB) 40 mg DAILY PO 02/13/25 09:00 03/15/25 08:59 Pantoprazole Sodium 80 mg/ Sodium Chloride 100 ml @ 10 mls/hr Q10H IV 02/07/25 10:00 02/07/25 16:34 DC 02/07/25 15:42 10 MLS/HR Pantoprazole Sodium 80 mg/ Sodium Chloride 100 ml @ 10 mls/hr Q10H IV 02/07/25 22:00 02/12/25 11:18 DC 02/12/25 02:10 10 MLS/HR Piperacillin Sod/ Tazobactam Sod 50 ml @ 12.5 mls/hr ONCE IV 02/07/25 16:30 02/07/25 20:30 DC 02/07/25 17:40 12.5 MLS/HR Piperacillin Sod/ Tazobactam Sod 50 ml @ 12.5 mls/hr Q8H IV 02/02/25 13:00 02/07/25 16:34 DC 02/07/25 16:19 12.5 MLS/HR Piperacillin Sod/ Tazobactam Sod 50 ml @ 12.5 mls/hr Q8H6 IV 02/07/25 22:00 02/17/25 21:59 02/12/25 05:23 12.5 MLS/HR Potassium Chloride 100 ml @ 100 mls/hr AD PRN IV POTASSIUM PROTOCOL 02/02/25 07:00 03/04/25 06:59 Potassium Chloride (K-Dur/Klor-Con 20meq) 20 meq AD PRN PO POTASSIUM PROTOCOL 02/02/25 07:00 03/04/25 06:59 02/11/25 21:15 20 MEQ Potassium Chloride (KCl 10% Elixir 20meq/15ml) 20 meq AD PRN PO POTASSIUM PROTOCOL 02/02/25 07:00 03/04/25 06:59 02/10/25 12:54 20 MEQ Spironolactone (Aldactone 25mg) 100 mg DAILY PO 02/03/25 09:00 03/05/25 08:59 02/12/25 08:28 100 MG Thiamine HCl (Vitamin B-1) 100 mg DAILY PO 02/03/25 09:00 03/05/25 08:59 02/12/25 08:28 100 MG Trazodone HCl (DesyREL/OlepTRO) 50 mg HS PO 02/05/25 21:00 03/07/25 20:59 02/11/25 20:57 50 MG Zolpidem Tartrate (AmbIEN) 5 mg HS PRN PO INSOMNIA 02/02/25 07:00 03/04/25 06:59 DIAGNOSTICS / RADIOLOGY: [ ] Assessment Increasing pleural effusion per CT Alcoholic cirrhosis with portal hypertension, large ascites, and pleural effusion. Resolving hepatic subcapsular collection (likely hematoma/inflammatory, stable). Recent GI bleed (gastric varices, s/p EGD, on octreotide and PPI). Anemia (stable, post-transfusion, monitor H&H). Electrolyte abnormalities (hypomagnesemia, hypoalbuminemia, hyponatremiaimproving). Infection risk (on broad-spectrum antibiotics, WBC normalized, afebrile). TIPS in place (patent, IR to re-evaluate as needed). Plan Continue current medical management and supportive care. Maintain diuretic regimen for ascites/pleural effusion; monitor for electrolyte disturbances. Continue magnesium replacement to maintain Mg >2.0. We will dc octreotide and Protonix gtt, but we will start Protonix 40 mg po today Monitor H&H daily; transfuse PRN for Hgb <7 or symptomatic anemia. Monitor for signs of infection; de-escalate antibiotics as appropriate. Maintain aspiration precautions and pulmonary hygiene. Encourage mobility as tolerated; continue PT/OT. Monitor intake/output, daily weights. IR to re-evaluate TIPS patency as per GI recommendations. Coordinated care with CAROLYN Bunch with [facility] regarding possible thora due to Plueral effusion Advance diet as tolerated. No new complaints; continue to monitor closely. Case discussed with the attending physician, above plan was formulated ATTESTATION BY PHYSICIAN I have seen and examined the patient. I reviewed the documentation, medical decision making, and treatment plan as noted by the mid-level provider above. I agree with the findings and plan of care. MAGALI KRAUSE MD, [facility] Feb 12, 2025 13:29
--- NOTE | 2025-02-12 19:50 | NUR ---
[facility] PT COMPLAINTS OF NAUSEA. SHIFT ASSESSMENT DONE, PLEASE REFER TO CHART. MEDICATED WITH ZOFRAN IV AND DUE MEDS ADMINISTERED, TOLERATED WELL. KEPT RESTED IN BED AT THIS TIME. ICE CHIPS PROVIDED TO TAKE.
[2025-02-13] VITALS (8 sets, daily range): BP systolic 104–154; BP diastolic 70–95; PULSE 90–108; RESP 16–20; TEMP 97.8–99.7; O2SAT 96–98
--- NOTE | 2025-02-13 05:03 | NUR ---
[facility] PT SLEPT AT INTERVALS DURING THE SHIFT. STILL WITH INTERMITTENT COUGHING. MEDICATED WITH GUAIFENESIN PO. DUE ZOSYN DOSE HUNG. KEPT RESTED IN BED WITH HOB ELEVATED. CALL LIGHT WITHIN REACH. FOR MORE CARE.
[2025-02-13 06:14] LABS: NUCLEATED RED BLOOD CELLS 0.0 % (0.0-0.19); PLATELET COUNT (AUTO) 192 K/uL (130-400); RED BLOOD CELL COUNT(AUTO) 2.62 MIL/uL (4.50-6.20); RED CELL DISTRIBUTION WIDTH 18.0 % (11.0-15.5); WHITE BLOOD COUNT (AUTO) 7.3 K/uL (4.8-10.8)
[2025-02-13 06:40] LABS: ASPARTATE AMINOTRANSFERASE 25.0 U/L (10-37); CREATININE 0.7 mg/dL (0.5-1.3); GLOMERULAR FILTR. RATE CALC 111.0 mL/min (>90); GLUCOSE,RANDOM 145.0 mg/dL (70-105); SODIUM SERUM 135.0 mmol/L (136-145); TOTAL PROTEIN, SERUM 5.5 g/dL (6.0-8.3); UREA NITROGEN, BLOOD 8.0 mg/dL (7-18)
--- NOTE | 2025-02-13 09:50 | PN ---
[facility] PROGRESS NOTE Date Patient Seen: Feb 13, 2025 Time of Visit: 09:50 Supervising Physician: Dr. De La Torre PROBLEM LIST: Acute sepsis POA Acute anemia with a hemoglobin of 7.0, S/B 1 unit PRBCs pending GI consultation Large Ascites s/p paracentesis 02/07/25 Large pleural effusion per chest x-ray and CT chest POA -s/p thoracentesis on 02/05/25 Alcoholic liver cirrhosis s/p multiple paracentesis POA Electrolyte imbalance hyponatremia Na 129 POA Multifactorial anemia POA Leukocytosis WBC 10.7 POA Cough POA INTERVAL HISTORY: Patient evaluated at bedside today, he is intermittently on 2 L nasal cannula, resting comfortably in bed at this time. Plan is for paracentesis tomorrow per primary team. We will evaluate for possible thoracentesis prior to his discharge if indicated. Patient made aware of the current plan expressed understanding and agreement. We will order a chest x-ray for the morning, pulmonary to continue following closely. Plan Continue to monitor SpO2 for possible new onset hypoxia secondary to recurrent ascites and pleural effusion Plan for paracentesis Friday with IR We will continue to follow and monitor pleural effusions for therapeutic thoracentesis REVIEW OF SYSTEMS: 12 point ROS reviewed with patient. Pertinent positives mentioned above. Otherwise negative. PHYSICAL EXAM: GENERAL: alert, weak, awake oriented x 3 HEENT: EOMI, Sclera non icteric, moist mucosa NECK: Supple, no JVD, trachea midline LUNGS: Clear breath sounds bilaterally. No wheezes HEART: Regular rate and rhythm. Normal S1 and S2, without murmurs ABD: Abdomen distended, fluid wave present Bowel sounds present EXT: No clubbing cyanosis or edema NEURO: Alert and oriented to person, follows commands Vital Signs (last 8hr) Date Time Temp Pulse Resp B/P (MAP) Pulse Ox O2 Delivery O2 Flow Rate FiO2 02/13/25 07:58 98.4 98 18 122/76 96 Room Air 02/13/25 04:00 98.2 90 16 104/71 97 Room Air LABS: Hematology Labs: Test 02/13/25 05:49 Range/Units White Blood Count 7.3 4.8-10.8 K/uL Red Blood Count 2.62 L 4.50-6.20 MIL/uL Hemoglobin 8.7 L 14.0-18.0 g/dL Hematocrit 26.1 L 42-54 % Mean Corpuscular Volume 99.6 H 79-99 fL Mean Corpuscular Hemoglobin 33.2 H 27.0-33.0 pg Mean Corpuscular Hemoglobin Concent 33.3 32.0-36.0 g/dL Red Cell Distribution Width 18.0 H 11.0-15.5 % Platelet Count 192 130-400 K/uL Mean Platelet Volume 8.4 7.5-10.5 fL Nucleated Red Blood Cells 0.0 0.0-0.19 % Red Blood Cell Morphology See comments Chemistry Labs: Test 02/13/25 05:49 02/13/25 04:44 Range/Units Sodium Level 135 L 136-145 mmol/L Potassium Level 3.8 3.5-5.1 mmol/L Chloride Level 101 101-111 mmol/L Carbon Dioxide Level 27 21-32 mmol/L Blood Urea Nitrogen 8 7-18 mg/dL Creatinine 0.7 0.5-1.3 mg/dL Glomerular Filtration Rate Calc 111 >90 mL/min Random Glucose 145 H 70-105 mg/dL Total Calcium 7.7 L 8.5-10.1 mg/dL Magnesium Level 1.80 1.80-2.40 mg/dL Total Bilirubin 1.0 0.2-1.0 mg/dL Aspartate Amino Transf (AST/SGOT) 25 10-37 U/L Alanine Aminotransferase (ALT/SGPT) 13 12-78 U/L Alkaline Phosphatase 155 H 50-136 U/L Total Protein 5.5 L 6.0-8.3 g/dL Albumin 1.7 L 3.5-5.0 g/dL Whole Blood Glucose 103 70-110 MG/DL DIAGNOSTICS / RADIOLOGY RESULTS: [ ] PLAN NEURO: Minimize central acting medications as possible. Maintain fall precautions, adequate lighting during the day PULMONARY: Supplemental 02 as needed. Maintain aspiration precautions at all times CARDIOVASCULAR: Follow hemodynamics. Vital signs per facility protocol GI & NUTRITION: Continue with nutritional support. Continue stool softeners and laxatives as needed. KIDNEYS & ELECTROLYTES: Strict monitoring of intake, output and overall fluid balance. Avoid nephrotoxic medications to the extent possible. Medications to be dosed according to renal function. Monitor electrolytes and replace as needed ENDOCRINE: Maintain blood glucose between 100-180 at all times. Hypoglycemia protocol in place INFECTIOUS DISEASE: Trend temperature, WBC and procalcitonin level Follow cultures, deescalate antibiotics as soon as possible. Panculture if new onset fever ONCOLOGY/HEMATOLOGY/COAGULATION: Monitor for s/s of bleeding Monitor hemoglobin, coagulation studies as needed SKIN: Pressure ulcer prevention per facility protocol Specialty mattress ORTHO/REHAB: Continue PT/OT Prophylaxis: Continue GI and DVT prophylaxis Code Status: Full Resuscitation Disposition: TBD Other: Total patient care time exceeds 35 minutes excluding all procedures. GLENN ATKINS PAC Feb 13, 2025 09:50
--- NOTE | 2025-02-13 15:14 | PN ---
[facility] PROGRESS NOTE Date of Service: Feb 13, 2025 Time of Service: 15:11 SUBJECTIVE: [ 02/02 Patient is54 years old male with a past medical history of alcoholic cirrhosis of liver, multiple recurrent ascites s/p paracentesis, portal gastropathy, hyponatremia and pleural effusion who came to emergency department with a complaint of shortness of breaths, vomiting, progressive cough for the past three days. Patient stated that recently he was discharged on 01/25/2025 where he was diagnosed with moderate to large pleural effusion] Most recent vital signs temperature 99.9 pulse 106 respirations 16 blood pressure 110/75 patient is on room air satting 100%. WBC 10.7 Hemoglobin 8.2 hematocrit 25platelets 191 , urinalysis negative. Influenza A negative influenza B negative COVID negative. Toxicology negative. Sodium 129 potassium 4.0 CO2 26 BUN nine creatinine 0.7 [id number] lactic 1.8 ammonia 42. Chest x-ray showed moderate right pleural effusion with lung atelectasis no evidence of pneumothorax. Chest CT showed large right-sided pleural effusion which is causing atelectasis of the right lower lung. There is a tips shunt in place. 2D echo more than 65% left ventricle diastolic function is normal. We consulted lens fabricating machine tender for further evaluation/recommendation. Patient is pending thoracentesis on 02/02/2025. Patient will be admitted under hospitalist care for further evaluation/recommendation. 02/03 patient was seen by nurse practitioner and physician during rounding in room 319. Chest x-ray showed moderate right pleural effusion. CT chest showed large right pleural effusion/atelectasis and large ascites in the abdomen. 2D echo showed EF of more than 60% normal function. Patient is pending thoracentesis as per lens fabricating machine tender. We will also order IR for the paracentesis for large ascites in the abdomen. As per patient he sees Dr. Stephanie MONSON and his neck is appointment for the paracentesis is on Friday02/11/2025 at 5:00 p.m.. At this moment we will continue to monitor patient in the meantime. A.m. labs. 02/04/25 patient was seen by SUPPLEMENTAL MANAGER and physician. Mental Health Assistant was unable to perform thoracentesis. At this moment they recommend to continue with furosemide and spironolactone and do paracentesis 1st. At this moment we do not have IR in the building. We will continue to monitor patient in the meantime. A.m. labs. Patient updated with the further plan and recommendations 02/05/25 patient was seen by nurse practitioner and physician during rounding in room 319. Dr. Persaud from pulmonology, attention to do thoracentesis yesterday 02/04/2025 unfortunately procedure was unsuccessful. We will order IR for thoracentesis and IR for paracentesis for Friday02/07/2025. Continue furosemide 40 mg IV push b.i.d. and spironolactone in the meantime. Continue to monitor patient in the meantime. A.m. labs 02/06/25 patient was seen by nurse practitioner and physician during rounding in room 319. WBC trending down today at 9.0 H&H stable. Blood culture negative x4 days. Patient continues to be on vanco and Zosyn. Pulmonology Dr. Morgan was in to perform thoracentesis yesterday 02/05/2025 on right side and was able to withdrawal 700 cc of pleural fluids. Patient is pending paracentesis by IR tomorrow 02/07/2025. We will continue to monitor patient in the meantime. A.m. labs] 02/07 the patient has been seen and examined at bedside, case discussed with the RN. The time of my visit he is comfortably in bed, back from having paracentesis by IR, total of 6.1 L removed, tolerated the procedure well. At the time of my visit he is alert oriented x3, hemodynamically stable, denies dizziness, no blurry vision, no chest pain, shortness shortness for breath, no nausea, no vomiting, no abdominal pain. Hemoglobin 7.0, stool occult blood positive. We will discontinue heparin subcutaneously, we will start the patient on Protonix and octreotide drip, we will transfuse 1 unit of PRBC, GI consultation requested, we will follow input and recommendation. Discussed with the patient, all questions answered, agreed and understood the information provided. 02/08 patient is seen and examined at bedside, discussed with the RN, no acute events overnight, at the time of my visit comfortably in bed, awake, following commands, transfusion of 1 unit of PRBC done yesterday, tolerated well, h emoglobin today 8.4, hematocrit 25.3. Patient evaluated by GI, plan for EGD tomorrow. Level 1.6, we will give 2 g of magnesium sulfate IV x1, keep potassium above four and magnesium above two. Discussed with the patient, all questions answered, agreed and understood the information provided. 02/09 the patient has been seen and examined at bedside, case discussed with the RN, no acute events overnight, patient is status post EGD today, tolerated well, findings of gastritis. Magnesium level of 1.7, replace IV per protocol to keep magnesium level above two. Plan for possible TIPS procedure today by intervention radiologist, discussed with the patient. 02/11/25 Patient denies any new complaints today. No abdominal pain, shortness of breath, chest pain, nausea, vomiting, or bleeding. No fevers, chills, or other constitutional symptoms. 02/12/25 Patient was evaluated in the room. He denies any abdominal pain, but noted slight distention on his abdomen. We discuss the CT abd/pelvis report, he has increase pleural effusion, more than previous CT. I spoke with Pulmo team and probably benefit from Thora. So far, patient denies any SOB, we will continue to follow. 02/14/28 Patient was seen in room 319, so c/o abd pain. Labs reviewed with the patient. So far no concerns related by nursing today. Plan is for him for paracentesis tomorrow with IR, and possible thoracentesis as well. REVIEW OF SYSTEMS CONSTITUTIONAL: Denies fevers, chills, or night sweats. No unintentional weight loss reported. NEUROLOGICAL: Denies headache, amaurosis fugax, motor weakness, sensory deficit, vertigo/spinning sensation, gait abnormalities, or tremors. ENT: No hearing loss, otalgia, otorrhea, rhinitis, rhinorrhea, hoarseness, or sore throat. CARDIOVASCULAR: Denies any exertional angina, dyspnea on exertion, orthopnea, paroxysmal nocturnal dyspnea, palpitations, life-threatening arrhythmias, ney dication. PULMONARY: Denies any , cough, phlegm/sputum, hemoptysis, pleuritic chest pain. Complains of shortness of breaths SLEEP: Denies morning headaches, daytime somnolence or napping. Denies difficulty falling asleep, staying asleep, waking from sleep. Denies knowledge of snoring. GASTROINTESTINAL: Denies any type of dysphagia to either liquids or solids. Denies nausea, vomiting, pyrosis, early satiety, abdominal pain, diarrhea, constipation, or changes in stool consistency or caliber. Denies coffee-ground emesis, hematemesis, hematochezia, or melanotic stools. GENITOURINARY: Denies frequency, urgency, nocturia, hematuria or incontinence (Storage/Irritative symptoms.) Low urinary stream, straining to void, urinary intermittency or hesitancy, splitting of the voiding stream, terminal dribbling. ENDOCRINOLOGIC: Denies polyuria, polydipsia, polyphagia or heat/cold intolerances. HEMATOLOGIC: Denies thrombophilia/previous clots, or coagulopathy/bleeding dis orders. ONCOLOGIC: Denies personal history of malignancy. DERMATOLOGIC: Denies rashes or pruritus. PSYCHIATRIC: Denies any suicidal or homicidal ideation. Denies hallucinations. PHYSICAL EXAM GENERAL APPEARANCE: The patient is awake, alert, and oriented, in no acute cardiopulmonary distress. NEUROLOGICAL: Cranial nerves II-XII grossly intact. Motor is 5/5 in bilateral upper and lower extremities proximal to distal. No sensory deficits. HEENT: Face is symmetric. Pupils are equal and reactive. Extraocular movements are intact. NECK: Supple. No JVD. No thyromegaly. No submental, submandibular, pre- /postauricular, occipital or supraclavicular lymphadenopathy. CHEST: Normal chest expansion. No Telemetry. LUNGS: Absence of any rales, rhonchi or any wheezing. CARDIOVASCULAR: Regular. S1 and S2 normal. No appreciable rubs, murmurs or gallops. ABDOMEN: Soft, nontender, and nondistended. There is no rebound, voluntary guarding, or rigidity. : Deferred. No Espinosa. EXTREMITIES: Non-edematous and not cyanotic. No clubbing. Good capillary refill. SKIN: No skin breakdown. Vital Signs (last 8hr) Date Time Temp Pulse Resp B/P (MAP) Pulse Ox O2 Delivery O2 Flow Rate FiO2 02/13/25 11:28 98.1 104 17 154/95 97 Room Air 02/13/25 08:00 96 Room Air* 0 21 02/13/25 07:58 98.4 98 18 122/76 96 Room Air LABS: Laboratory: Test 02/13/25 14:54 02/13/25 05:49 Range/Units Whole Blood Glucose 121 H 70-110 MG/DL White Blood Count 7.3 4.8-10.8 K/uL Red Blood Count 2.62 L 4.50-6.20 MIL/uL Hemoglobin 8.7 L 14.0-18.0 g/dL Hematocrit 26.1 L 42-54 % Mean Corpuscular Volume 99.6 H 79-99 fL Mean Corpuscular Hemoglobin 33.2 H 27.0-33.0 pg Mean Corpuscular Hemoglobin Concent 33.3 32.0-36.0 g/dL Red Cell Distribution Width 18.0 H 11.0-15.5 % Platelet Count 192 130-400 K/uL Mean Platelet Volume 8.4 7.5-10.5 fL Nucleated Red Blood Cells 0.0 0.0-0.19 % Red Blood Cell Morphology See comments Sodium Level 135 L 136-145 mmol/L Potassium Level 3.8 3.5-5.1 mmol/L Chloride Level 101 101-111 mmol/L Carbon Dioxide Level 27 21-32 mmol/L Blood Urea Nitrogen 8 7-18 mg/dL Creatinine 0.7 0.5-1.3 mg/dL Glomerular Filtration Rate Calc 111 >90 mL/min Random Glucose 145 H 70-105 mg/dL Total Calcium 7.7 L 8.5-10.1 mg/dL Magnesium Level 1.80 1.80-2.40 mg/dL Total Bilirubin 1.0 0.2-1.0 mg/dL Aspartate Amino Transf (AST/SGOT) 25 10-37 U/L Alanine Aminotransferase (ALT/SGPT) 13 12-78 U/L Alkaline Phosphatase 155 H 50-136 U/L Total Protein 5.5 L 6.0-8.3 g/dL Albumin 1.7 L 3.5-5.0 g/dL Current Medications Medications (Trade) Dose Ordered Sig/Ronak Route PRN Reason Start Time Stop Time Status Last Admin Dose Admin Acetaminophen (TYLenol 325MG TAB) 650 mg Q4H PRN PO MILD PAIN (1-3) 02/02/25 07:00 03/04/25 06:59 Acetaminophen (TYLenol 325MG TAB) 650 mg Q6H PRN PO MILD PAIN (1-3) 02/02/25 07:00 02/02/25 07:05 DC Acetaminophen (TYLenol 325MG TAB) 650 mg Q6H PRN PO TEMPERATURE GREATER THAN 101.5 02/02/25 07:00 03/04/25 06:59 Acetaminophen/ Hydrocodone Bitart (NORco 5/325MG) 1 tab Q6H PRN PO MODERATE PAIN (4-6) 02/02/25 07:00 02/07/25 06:59 DC 02/06/25 20:01 1 TAB Al Hydroxide/Mg Hydroxide (MAALox PLUS 30ML) 30 ml Q6H PRN PO INDIGESTION 02/02/25 07:00 03/04/25 06:59 Albumin Human 100 ml @ 100 mls/hr AD IV 02/04/25 09:00 02/07/25 09:41 DC 02/04/25 09:37 100 MLS/HR Albumin Human 200 ml @ 0 mls/hr AD IV 02/07/25 11:30 02/08/25 11:29 DC 02/07/25 15:41 100 MLS/HR Albumin Human 250 ml @ 375 mls/hr AD IV 02/05/25 21:00 02/07/25 11:24 DC 02/05/25 22:04 375 MLS/HR Dextrose (D50w) 50 ml AD PRN IV HYPOGLYCEMIA PROTOCOL 02/02/25 07:00 02/03/25 07:51 DC Dextrose (D50w) 50 ml AD PRN IV HYPOGLYCEMIA PROTOCOL 02/03/25 08:00 03/05/25 07:59 Diphenhydramine HCl (BENAdryl INJ) 25 mg Q6H PRN IV SEVERE ITCHING/RASH 02/02/25 07:00 03/04/25 06:59 Famotidine (Pepcid 20mg Vial) 20 mg BID IV 02/02/25 09:00 02/08/25 09:09 DC 02/07/25 21:12 20 MG Famotidine (Pepcid 20mg Vial) 20 mg BID PRN IV NAUSEA/VOMITING 02/02/25 07:00 02/02/25 07:05 DC Furosemide (LASix 40MG TAB) 40 mg DAILY PO 02/03/25 09:00 02/02/25 10:15 DC Furosemide (LASix 40MG VIAL) 40 mg BID IVP 02/02/25 09:00 03/04/25 08:59 02/13/25 10:42 40 MG Glucagon (Glucagon 1mg Kit) 1 mg AD PRN IM HYPOGLYCEMIA PROTOCOL 02/02/25 07:00 02/03/25 07:52 DC Glucagon (Glucagon 1mg Kit) 1 mg AD PRN IM HYPOGLYCEMIA PROTOCOL 02/03/25 08:00 03/05/25 07:59 Guaifenesin/ Dextromethorphan (RobiTUSSin DM 200/20MG 10ML) 10 ml Q4H PRN PO COUGH 02/02/25 07:00 03/04/25 06:59 02/13/25 05:07 10 ML Heparin Sodium (Porcine) (HEParin 5,000 UNIT VIAL) 5,000 unit Q12H SQ 02/02/25 09:00 02/07/25 09:36 DC 02/06/25 21:46 5,000 UNIT Hydralazine HCl (APRESOLine 20MG INJ) 10 mg Q6H PRN IV For:SBP above 160;DBP above 90 02/02/25 07:00 03/04/25 06:59 Insulin Human Regular (humuLIN R 100 UNIT/ML 3ML) INSULIN SLIDING SCAL... ACHS SQ 02/02/25 07:30 03/04/25 07:29 Ketorolac Tromethamine (toRADol) 15 mg Q8H PRN IV MODERATE PAIN (4-6) 02/02/25 07:00 02/02/25 07:05 DC Lactulose (Constulose 20gm/ 30ml Udcup) 20 gm BID PO 02/02/25 21:00 03/04/25 20:59 02/13/25 10:41 20 GM Lactulose (Constulose 20gm/ 30ml Udcup) 20 gm BID PRN PO CONSTIPATION 02/02/25 07:00 03/04/25 06:59 Magnesium Sulfate 50 ml @ 0 mls/hr PROTOCOL IV 02/03/25 12:00 03/05/25 11:59 02/13/25 10:42 25 MLS/HR Magnesium Sulfate 50 ml @ 0 mls/hr PROTOCOL IV 02/05/25 07:00 02/05/25 06:43 DC Magnesium Sulfate 50 ml @ 0 mls/hr PROTOCOL IV 02/06/25 09:00 02/06/25 08:48 DC Magnesium Sulfate 50 ml @ 0 mls/hr PROTOCOL IV 02/07/25 10:00 02/07/25 09:36 DC Magnesium Sulfate 50 ml @ 0 mls/hr PROTOCOL IV 02/08/25 09:30 02/08/25 09:26 DC Magnesium Sulfate 50 ml @ 0 mls/hr PROTOCOL IV 02/09/25 10:00 02/09/25 09:55 DC Magnesium Sulfate 50 ml @ 0 mls/hr PROTOCOL IV 02/10/25 09:30 02/10/25 09:28 DC Magnesium Sulfate 50 ml @ 0 mls/hr PROTOCOL PRN IV other 02/02/25 07:00 02/03/25 11:49 DC Morphine Sulfate (morPHINE 2MG SYG) 1 mg Q4H PRN IVP SEVERE PAIN (7-10) 02/02/25 07:00 02/04/25 11:47 DC 02/03/25 03:20 1 MG Morphine Sulfate (morPHINE 2MG SYG) 2 mg Q4H PRN IVP SEVERE PAIN (7-10) 02/04/25 15:00 02/09/25 17:59 DC 02/09/25 05:18 2 MG Morphine Sulfate (morPHINE 2MG SYG) 2 mg Q4H PRN IVP SEVERE PAIN (7-10) 02/11/25 03:30 02/18/25 03:29 02/12/25 20:45 2 MG Multivitamins/ Minerals (Centrum) 1 tab DAILY PO 02/03/25 09:00 03/05/25 08:59 02/13/25 10:41 1 TAB Nitroglycerin (Nitrostat) 0.4 mg PROTOCOL PRN SL CHEST PAIN 02/02/25 07:00 03/04/25 06:59 Octreotide Acetate 1250 mcg/ Sodium Chloride 250 ml @ 0 mls/hr PROTOCOL IV 02/07/25 10:00 02/12/25 11:18 DC 02/07/25 19:16 5 MLS/HR Ondansetron HCl (zoFRAN 4MG INJ) 4 mg Q6H PRN IV NAUSEA/VOMITING 02/02/25 07:00 03/04/25 06:59 02/13/25 10:47 4 MG Oxycodone/ Acetaminophen (perCOCET) 1 tab Q6H PRN PO SEVERE PAIN (7-10) 02/02/25 07:00 02/04/25 07:07 DC 02/03/25 13:00 1 TAB Pantoprazole Sodium (PROTonix 40MG TAB) 40 mg DAILY PO 02/13/25 09:00 03/15/25 08:59 02/13/25 10:41 40 MG Pantoprazole Sodium 80 mg/ Sodium Chloride 100 ml @ 10 mls/hr Q10H IV 02/07/25 10:00 02/07/25 16:34 DC 02/07/25 15:42 10 MLS/HR Pantoprazole Sodium 80 mg/ Sodium Chloride 100 ml @ 10 mls/hr Q10H IV 02/07/25 22:00 02/12/25 11:18 DC 02/12/25 02:10 10 MLS/HR Piperacillin Sod/ Tazobactam Sod 50 ml @ 12.5 mls/hr ONCE IV 02/07/25 16:30 02/07/25 20:30 DC 02/07/25 17:40 12.5 MLS/HR Piperacillin Sod/ Tazobactam Sod 50 ml @ 12.5 mls/hr Q8H IV 02/02/25 13:00 02/07/25 16:34 DC 02/07/25 16:19 12.5 MLS/HR Piperacillin Sod/ Tazobactam Sod 50 ml @ 12.5 mls/hr Q8H6 IV 02/07/25 22:00 02/17/25 21:59 02/13/25 13:55 12.5 MLS/HR Potassium Chloride 100 ml @ 100 mls/hr AD PRN IV POTASSIUM PROTOCOL 02/02/25 07:00 03/04/25 06:59 Potassium Chloride (K-Dur/Klor-Con 20meq) 20 meq AD PRN PO POTASSIUM PROTOCOL 02/02/25 07:00 03/04/25 06:59 02/13/25 10:42 20 MEQ Potassium Chloride (KCl 10% Elixir 20meq/15ml) 20 meq AD PRN PO POTASSIUM PROTOCOL 02/02/25 07:00 03/04/25 06:59 02/10/25 12:54 20 MEQ Spironolactone (Aldactone 25mg) 100 mg DAILY PO 02/03/25 09:00 03/05/25 08:59 02/13/25 10:41 100 MG Thiamine HCl (Vitamin B-1) 100 mg DAILY PO 02/03/25 09:00 03/05/25 08:59 02/13/25 10:41 100 MG Trazodone HCl (DesyREL/OlepTRO) 50 mg HS PO 02/05/25 21:00 03/07/25 20:59 02/12/25 20:41 50 MG Zolpidem Tartrate (AmbIEN) 5 mg HS PRN PO INSOMNIA 02/02/25 07:00 03/04/25 06:59 DIAGNOSTICS / RADIOLOGY: [ ] Assessment Increasing pleural effusion per CT Alcoholic cirrhosis with portal hypertension, large ascites, and pleural effusion. Resolving hepatic subcapsular collection (likely hematoma/inflammatory, stable). Recent GI bleed (gastric varices, s/p EGD, on octreotide and PPI). Anemia (stable, post-transfusion, monitor H&H). Electrolyte abnormalities (hypomagnesemia, hypoalbuminemia, hyponatremiaimproving). Infection risk (on broad-spectrum antibiotics, WBC normalized, afebrile). TIPS in place (patent, IR to re-evaluate as needed). Plan Continue current medical management and supportive care. Maintain diuretic regimen for ascites/pleural effusion; monitor for electrolyte disturbances. Continue magnesium replacement to maintain Mg >2.0. We will dc octreotide and Protonix gtt, but we will start Protonix 40 mg po today Monitor H&H daily; transfuse PRN for Hgb <7 or symptomatic anemia. Monitor for signs of infection; de-escalate antibiotics as appropriate. Maintain aspiration precautions and pulmonary hygiene. Encourage mobility as tolerated; continue PT/OT. Monitor intake/output, daily weights. IR for para in am and possible thora as well, Continue with current diet Repeat labs in am Case discussed with the attending physician, above plan was formulated ATTESTATION BY PHYSICIAN I have seen and examined the patient. I reviewed the documentation, medical decision making, and treatment plan as noted by the mid-level provider above. I agree with the findings and plan of care. MAGALI KRAUSE MD, [facility] Feb 13, 2025 15:14
--- NOTE | 2025-02-13 20:25 | NUR ---
MEDS SHIFT ASSESSMENT DONE, PLEASE REFER TO CHART. DUE MEDS ADMINISTERED, TOLERATED WELL. LEFT EATING PM SNACKS IN THE CHAIR. CALL LIGHT WITHIN REACH. INSTRUCTED TO CALL WHEN READY TO GO BACK TO BED.
[2025-02-14] VITALS (8 sets, daily range): BP systolic 102–121; BP diastolic 55–76; PULSE 90–108; RESP 17–19; TEMP 97.4–98.4; O2SAT 94
--- NOTE | 2025-02-14 04:45 | NUR ---
CONSENT NURSE IRASEMA ANTHONY, IN TO GET CONSENT FOR US GUIDED [place]. PT VERBALIZES UNDERSTANDING OF PROCEDURE AND CONSENT WAS SIGNED WITNESSED BY NURSE ANTHONY. FORM PLACED IN CHART.
[2025-02-14 06:31] LABS: NUCLEATED RED BLOOD CELLS 0.0 % (0.0-0.19); PLATELET COUNT (AUTO) 203.0 K/uL (130-400); RED BLOOD CELL COUNT(AUTO) 2.62 MIL/uL (4.50-6.20); RED CELL DISTRIBUTION WIDTH 17.7 % (11.0-15.5); WHITE BLOOD COUNT (AUTO) 7.5 K/uL (4.8-10.8)
[2025-02-14 06:39] LABS: INR 1.28 (0.85-1.15)
[2025-02-14 06:43] LABS: CREATININE 0.6 mg/dL (0.5-1.3); GLOMERULAR FILTR. RATE CALC 116.0 mL/min (>90); GLUCOSE,RANDOM 91.0 mg/dL (70-105); SODIUM SERUM 135.0 mmol/L (136-145); UREA NITROGEN, BLOOD 8.0 mg/dL (7-18)
--- NOTE | 2025-02-14 10:03 | PN ---
[facility] PROGRESS NOTE Date Patient Seen: Feb 14, 2025 Time of Visit: 10:03 Supervising Physician: Dr. De La Torre PROBLEM LIST: Acute sepsis POA Acute anemia with a hemoglobin of 7.0, S/B 1 unit PRBCs pending GI consultation Large Ascites s/p paracentesis 02/07/25 Large pleural effusion per chest x-ray and CT chest POA -s/p thoracentesis on 02/05/25 Alcoholic liver cirrhosis s/p multiple paracentesis POA Electrolyte imbalance hyponatremia Na 129 POA Multifactorial anemia POA Leukocytosis WBC 10.7 POA Cough POA INTERVAL HISTORY: Patient was seen at bedside today. He is currently on room air. He states that he is not in any respiratory distress unless he lays flat. He feels like it is a little more difficult for him to catch his breath. He is going for paracentesis today. We will follow up with a chest X-ray in the morning to evaluate the need for paracentesis prior to his discharge from primary perspective, possibly tomorrow, period. Plan Patient is slated for paracentesis today with IR Monitor respiratory status in the presence of pleural effusion Evaluate for possible thoracentesis on Friday prior to patient discharge REVIEW OF SYSTEMS: 12 point ROS reviewed with patient. Pertinent positives mentioned above. Otherwise negative. PHYSICAL EXAM: GENERAL: alert, weak, awake oriented x 3 HEENT: EOMI, Sclera non icteric, moist mucosa NECK: Supple, no JVD, trachea midline LUNGS: Clear breath sounds bilaterally. No wheezes HEART: Regular rate and rhythm. Normal S1 and S2, without murmurs ABD: Abdomen distended, fluid wave present Bowel sounds present EXT: No clubbing cyanosis or edema NEURO: Alert and oriented to person, follows commands Vital Signs (last 8hr) Date Time Temp Pulse Resp B/P (MAP) Pulse Ox O2 Delivery O2 Flow Rate FiO2 02/14/25 08:13 Room Air* 0 21 02/14/25 08:00 97.7 101 18 113/63 94 Room Air 02/14/25 04:42 97.3 103 18 113/67 96 Room Air LABS: Hematology Labs: Test 02/14/25 05:58 02/13/25 05:49 Range/Units White Blood Count 7.5 4.8-10.8 K/uL Red Blood Count 2.62 L 4.50-6.20 MIL/uL Hemoglobin 8.6 L 14.0-18.0 g/dL Hematocrit 26.2 L 42-54 % Mean Corpuscular Volume 100.0 H 79-99 fL Mean Corpuscular Hemoglobin 32.8 27.0-33.0 pg Mean Corpuscular Hemoglobin Concent 32.8 32.0-36.0 g/dL Red Cell Distribution Width 17.7 H 11.0-15.5 % Platelet Count 203 130-400 K/uL Mean Platelet Volume 8.8 7.5-10.5 fL Nucleated Red Blood Cells 0.0 0.0-0.19 % Red Blood Cell Morphology See comments Chemistry Labs: Test 02/14/25 05:58 02/14/25 05:37 02/13/25 05:49 Range/Units Sodium Level 135 L 136-145 mmol/L Potassium Level 3.9 3.5-5.1 mmol/L Chloride Level 102 101-111 mmol/L Carbon Dioxide Level 27 21-32 mmol/L Blood Urea Nitrogen 8 7-18 mg/dL Creatinine 0.6 0.5-1.3 mg/dL Glomerular Filtration Rate Calc 116 >90 mL/min Random Glucose 91 70-105 mg/dL Total Calcium 7.5 L 8.5-10.1 mg/dL Magnesium Level 2.30 1.80-2.40 mg/dL Whole Blood Glucose 104 70-110 MG/DL Total Bilirubin 1.0 0.2-1.0 mg/dL Aspartate Amino Transf (AST/SGOT) 25 10-37 U/L Alanine Aminotransferase (ALT/SGPT) 13 12-78 U/L Alkaline Phosphatase 155 H 50-136 U/L Total Protein 5.5 L 6.0-8.3 g/dL Albumin 1.7 L 3.5-5.0 g/dL Coagulation Labs: Test 02/14/25 05:58 Range/Units Prothrombin Time 13.2 H 9.6-11.6 SEC Prothromb Time International Ratio 1.28 H 0.85-1.15 Activated Partial Thromboplast Time 32.5 26.3-35.5 SEC DIAGNOSTICS / RADIOLOGY RESULTS: [ ] PLAN NEURO: Minimize central acting medications as possible. Maintain fall precautions, adequate lighting during the day PULMONARY: Supplemental 02 as needed. Maintain aspiration precautions at all times CARDIOVASCULAR: Follow hemodynamics. Vital signs per facility protocol GI & NUTRITION: Continue with nutritional support. Continue stool softeners and laxatives as needed. KIDNEYS & ELECTROLYTES: Strict monitoring of intake, output and overall fluid balance. Avoid nephrotoxic medications to the extent possible. Medications to be dosed according to renal function. Monitor electrolytes and replace as needed ENDOCRINE: Maintain blood glucose between 100-180 at all times. Hypoglycemia protocol in place INFECTIOUS DISEASE: Trend temperature, WBC and procalcitonin level Follow cultures, deescalate antibiotics as soon as possible. Panculture if new onset fever ONCOLOGY/HEMATOLOGY/COAGULATION: Monitor for s/s of bleeding Monitor hemoglobin, coagulation studies as needed SKIN: Pressure ulcer prevention per facility protocol Specialty mattress ORTHO/REHAB: Continue PT/OT Prophylaxis: Continue GI and DVT prophylaxis Code Status: Full Resuscitation Disposition: TBD Other: Total patient care time exceeds 35 minutes excluding all procedures. GLENN ATKINS PAC Feb 14, 2025 10:03
--- NOTE | 2025-02-14 11:00 | NUR ---
RE: PARACENTESIS IMAGES TAKEN AND REVIEWED BY DR Cait PALAFOX. NOT ENOUGH FLUID SEEN FOR PROCEDURE TO BE DONE SAFELY. PROCEDURE CANCELLED. PROCEDURE OUTCOME REPORTED TO FELIX GAGE AND PATIENT TRANSPORTED TO [facility] VIA BED AT 1100
--- NOTE | 2025-02-14 12:54 | PN ---
[facility] PROGRESS NOTE Date of Service: Feb 14, 2025 Time of Service: 12:53 SUBJECTIVE: [ 02/02 Patient is54 years old male with a past medical history of alcoholic cirrhosis of liver, multiple recurrent ascites s/p paracentesis, portal gastropathy, hyponatremia and pleural effusion who came to emergency department with a complaint of shortness of breaths, vomiting, progressive cough for the past three days. Patient stated that recently he was discharged on 01/25/2025 where he was diagnosed with moderate to large pleural effusion] Most recent vital signs temperature 99.9 pulse 106 respirations 16 blood pressure 110/75 patient is on room air satting 100%. WBC 10.7 Hemoglobin 8.2 hematocrit 25platelets 191 , urinalysis negative. Influenza A negative influenza B negative COVID negative. Toxicology negative. Sodium 129 potassium 4.0 CO2 26 BUN nine creatinine 0.7 [id number] lactic 1.8 ammonia 42. Chest x-ray showed moderate right pleural effusion with lung atelectasis no evidence of pneumothorax. Chest CT showed large right-sided pleural effusion which is causing atelectasis of the right lower lung. There is a tips shunt in place. 2D echo more than 65% left ventricle diastolic function is normal. We consulted perennial house manager for further evaluation/recommendation. Patient is pending thoracentesis on 02/02/2025. Patient will be admitted under hospitalist care for further evaluation/recommendation. 02/03 patient was seen by nurse practitioner and physician during rounding in room 319. Chest x-ray showed moderate right pleural effusion. CT chest showed large right pleural effusion/atelectasis and large ascites in the abdomen. 2D echo showed EF of more than 60% normal function. Patient is pending thoracentesis as per perennial house manager. We will also order IR for the paracentesis for large ascites in the abdomen. As per patient he sees Dr. Stephanie MONSON and his neck is appointment for the paracentesis is on Friday02/11/2025 at 5:00 p.m.. At this moment we will continue to monitor patient in the meantime. A.m. labs. 02/04/25 patient was seen by MANAGER INVESTMENT and physician. Salesperson Driver was unable to perform thoracentesis. At this moment they recommend to continue with furosemide and spironolactone and do paracentesis 1st. At this moment we do not have IR in the building. We will continue to monitor patient in the meantime. A.m. labs. Patient updated with the further plan and recommendations 02/05/25 patient was seen by nurse practitioner and physician during rounding in room 319. Dr. Persaud from pulmonology, attention to do thoracentesis yesterday 02/04/2025 unfortunately procedure was unsuccessful. We will order IR for thoracentesis and IR for paracentesis for Friday02/07/2025. Continue furosemide 40 mg IV push b.i.d. and spironolactone in the meantime. Continue to monitor patient in the meantime. A.m. labs 02/06/25 patient was seen by nurse practitioner and physician during rounding in room 319. WBC trending down today at 9.0 H&H stable. Blood culture negative x4 days. Patient continues to be on vanco and Zosyn. Pulmonology Dr. Morgan was in to perform thoracentesis yesterday 02/05/2025 on right side and was able to withdrawal 700 cc of pleural fluids. Patient is pending paracentesis by IR tomorrow 02/07/2025. We will continue to monitor patient in the meantime. A.m. labs] 02/07 the patient has been seen and examined at bedside, case discussed with the RN. The time of my visit he is comfortably in bed, back from having paracentesis by IR, total of 6.1 L removed, tolerated the procedure well. At the time of my visit he is alert oriented x3, hemodynamically stable, denies dizziness, no blurry vision, no chest pain, shortness shortness for breath, no nausea, no vomiting, no abdominal pain. Hemoglobin 7.0, stool occult blood positive. We will discontinue heparin subcutaneously, we will start the patient on Protonix and octreotide drip, we will transfuse 1 unit of PRBC, GI consultation requested, we will follow input and recommendation. Discussed with the patient, all questions answered, agreed and understood the information provided. 02/08 patient is seen and examined at bedside, discussed with the RN, no acute events overnight, at the time of my visit comfortably in bed, awake, following commands, transfusion of 1 unit of PRBC done yesterday, tolerated well, h emoglobin today 8.4, hematocrit 25.3. Patient evaluated by GI, plan for EGD tomorrow. Level 1.6, we will give 2 g of magnesium sulfate IV x1, keep potassium above four and magnesium above two. Discussed with the patient, all questions answered, agreed and understood the information provided. 02/09 the patient has been seen and examined at bedside, case discussed with the RN, no acute events overnight, patient is status post EGD today, tolerated well, findings of gastritis. Magnesium level of 1.7, replace IV per protocol to keep magnesium level above two. Plan for possible TIPS procedure today by intervention radiologist, discussed with the patient. 02/11/25 Patient denies any new complaints today. No abdominal pain, shortness of breath, chest pain, nausea, vomiting, or bleeding. No fevers, chills, or other constitutional symptoms. 02/12/25 Patient was evaluated in the room. He denies any abdominal pain, but noted slight distention on his abdomen. We discuss the CT abd/pelvis report, he has increase pleural effusion, more than previous CT. I spoke with Pulmo team and probably benefit from Thora. So far, patient denies any SOB, we will continue to follow. 02/14/28 Patient was seen in room 319, so c/o abd pain. Labs reviewed with the patient. So far no concerns related by nursing today. Plan is for him for paracentesis tomorrow with IR, and possible thoracentesis as well. 02/14 patient remains admitted to the medical floor, alert oriented x3 at the time of my visit, no chest pain, no shortness a breath, no nausea, no vomiting, no abdominal discomfort. The patient has continued scheduled for paracentesis t vy by IR. We will follow Pulmonary input and recommendation in terms of possible therapeutic thoracentesis. We will follow a.m. labs. Discussed with the patient, in agreement. REVIEW OF SYSTEMS CONSTITUTIONAL: Denies fevers, chills, or night sweats. No unintentional weight loss reported. NEUROLOGICAL: Denies headache, amaurosis fugax, motor weakness, sensory deficit, vertigo/spinning sensation, gait abnormalities, or tremors. ENT: No hearing loss, otalgia, otorrhea, rhinitis, rhinorrhea, hoarseness, or sore throat. CARDIOVASCULAR: Denies any exertional angina, dyspnea on exertion, orthopnea, paroxysmal nocturnal dyspnea, palpitations, life-threatening arrhythmias, claudication. PULMONARY: Denies any , cough, phlegm/sputum, hemoptysis, pleuritic chest pain. Complains of shortness of breaths SLEEP: Denies morning headaches, daytime somnolence or napping. Denies difficulty falling asleep, staying asleep, waking from sleep. Denies knowledge of snoring. GASTROINTESTINAL: Denies any type of dysphagia to either liquids or solids. Denies nausea, vomiting, pyrosis, early satiety, abdominal pain, diarrhea, constipation, or changes in stool consistency or caliber. Denies coffee-ground emesis, hematemesis, hematochezia, or melanotic stools. GENITOURINARY: Denies frequency, urgency, nocturia, hematuria or incontinence (Storage/Irritative symptoms.) Low urinary stream, straining to void, urinary intermittency or hesitancy, splitting of the voiding stream, terminal dribbling. ENDOCRINOLOGIC: Denies polyuria, polydipsia, polyphagia or heat/cold intolerances. HEMATOLOGIC: Denies thrombophilia/previous clots, or coagulopathy/bleeding disorders. ONCOLOGIC: Denies personal history of malignancy. DERMATOLOGIC: Denies rashes or pruritus. PSYCHIATRIC: Denies any suicidal or homicidal ideation. Denies hallucinations. PHYSICAL EXAM GENERAL APPEARANCE: The patient is awake, alert, and oriented, in no acute cardiopulmonary distress. NEUROLOGICAL: Cranial nerves II-XII grossly intact. Motor is 5/5 in bilateral upper and lower extremities proximal to distal. No sensory deficits. HEENT: Face is symmetric. Pupils are equal and reactive. Extraocular movements are intact. NECK: Supple. No JVD. No thyromegaly. No submental, submandibular, pre- /postauricular, occipital or supraclavicular lymphadenopathy. CHEST: Normal chest expansion. No Telemetry. LUNGS: Absence of any rales, rhonchi or any wheezing. CARDIOVASCULAR: Regular. S1 and S2 normal. No appreciable rubs, murmurs or gallops. ABDOMEN: Soft, nontender, and nondistended. There is no rebound, voluntary guarding, or rigidity. : Deferred. No Espinosa. EXTREMITIES: Non-edematous and not cyanotic. No clubbing. Good capillary refill. SKIN: No skin breakdown. Vital Signs (last 8hr) Date Time Temp Pulse Resp B/P (MAP) Pulse Ox O2 Delivery O2 Flow Rate FiO2 02/14/25 08:13 Room Air* 0 21 02/14/25 08:00 97.7 101 18 113/63 94 Room Air LABS: Laboratory: Test 02/14/25 11:30 02/14/25 05:58 02/13/25 05:49 Range/Units Whole Blood Glucose 143 H 70-110 MG/DL White Blood Count 7.5 4.8-10.8 K/uL Red Blood Count 2.62 L 4.50-6.20 MIL/uL Hemoglobin 8.6 L 14.0-18.0 g/dL Hematocrit 26.2 L 42-54 % Mean Corpuscular Volume 100.0 H 79-99 fL Mean Corpuscular Hemoglobin 32.8 27.0-33.0 pg Mean Corpuscular Hemoglobin Concent 32.8 32.0-36.0 g/dL Red Cell Distribution Width 17.7 H 11.0-15.5 % Platelet Count 203 130-400 K/uL Mean Platelet Volume 8.8 7.5-10.5 fL Nucleated Red Blood Cells 0.0 0.0-0.19 % Prothrombin Time 13.2 H 9.6-11.6 SEC Prothromb Time International Ratio 1.28 H 0.85-1.15 Activated Partial Thromboplast Time 32.5 26.3-35.5 SEC Sodium Level 135 L 136-145 mmol/L Potassium Level 3.9 3.5-5.1 mmol/L Chloride Level 102 101-111 mmol/L Carbon Dioxide Level 27 21-32 mmol/L Blood Urea Nitrogen 8 7-18 mg/dL Creatinine 0.6 0.5-1.3 mg/dL Glomerular Filtration Rate Calc 116 >90 mL/min Random Glucose 91 70-105 mg/dL Total Calcium 7.5 L 8.5-10.1 mg/dL Magnesium Level 2.30 1.80-2.40 mg/dL Red Blood Cell Morphology See comments Total Bilirubin 1.0 0.2-1.0 mg/dL Aspartate Amino Transf (AST/SGOT) 25 10-37 U/L Alanine Aminotransferase (ALT/SGPT) 13 12-78 U/L Alkaline Phosphatase 155 H 50-136 U/L Total Protein 5.5 L 6.0-8.3 g/dL Albumin 1.7 L 3.5-5.0 g/dL Current Medications Medications (Trade) Dose Ordered Sig/Ronak Route PRN Reason Start Time Stop Time Status Last Admin Dose Admin Acetaminophen (TYLenol 325MG TAB) 650 mg Q4H PRN PO MILD PAIN (1-3) 02/02/25 07:00 03/04/25 06:59 Acetaminophen (TYLenol 325MG TAB) 650 mg Q6H PRN PO MILD PAIN (1-3) 02/02/25 07:00 02/02/25 07:05 DC Acetaminophen (TYLenol 325MG TAB) 650 mg Q6H PRN PO TEMPERATURE GREATER THAN 101.5 02/02/25 07:00 03/04/25 06:59 Acetaminophen/ Hydrocodone Bitart (NORco 5/325MG) 1 tab Q6H PRN PO MODERATE PAIN (4-6) 02/02/25 07:00 02/07/25 06:59 DC 02/06/25 20:01 1 TAB Al Hydroxide/Mg Hydroxide (MAALox PLUS 30ML) 30 ml Q6H PRN PO INDIGESTION 02/02/25 07:00 03/04/25 06:59 Albumin Human 100 ml @ 100 mls/hr AD IV 02/04/25 09:00 02/07/25 09:41 DC 02/04/25 09:37 100 MLS/HR Albumin Human 200 ml @ 0 mls/hr AD IV 02/07/25 11:30 02/08/25 11:29 DC 02/07/25 15:41 100 MLS/HR Albumin Human 250 ml @ 375 mls/hr AD IV 02/05/25 21:00 02/07/25 11:24 DC 02/05/25 22:04 375 MLS/HR Dextrose (D50w) 50 ml AD PRN IV HYPOGLYCEMIA PROTOCOL 02/02/25 07:00 02/03/25 07:51 DC Dextrose (D50w) 50 ml AD PRN IV HYPOGLYCEMIA PROTOCOL 02/03/25 08:00 03/05/25 07:59 Diphenhydramine HCl (BENAdryl INJ) 25 mg Q6H PRN IV SEVERE ITCHING/RASH 02/02/25 07:00 03/04/25 06:59 Famotidine (Pepcid 20mg Vial) 20 mg BID IV 02/02/25 09:00 02/08/25 09:09 DC 02/07/25 21:12 20 MG Famotidine (Pepcid 20mg Vial) 20 mg BID PRN IV NAUSEA/VOMITING 02/02/25 07:00 02/02/25 07:05 DC Furosemide (LASix 40MG TAB) 40 mg DAILY PO 02/03/25 09:00 02/02/25 10:15 DC Furosemide (LASix 40MG VIAL) 40 mg BID IVP 02/02/25 09:00 03/04/25 08:59 02/14/25 07:57 40 MG Glucagon (Glucagon 1mg Kit) 1 mg AD PRN IM HYPOGLYCEMIA PROTOCOL 02/02/25 07:00 02/03/25 07:52 DC Glucagon (Glucagon 1mg Kit) 1 mg AD PRN IM HYPOGLYCEMIA PROTOCOL 02/03/25 08:00 03/05/25 07:59 Guaifenesin/ Dextromethorphan (RobiTUSSin DM 200/20MG 10ML) 10 ml Q4H PRN PO COUGH 02/02/25 07:00 03/04/25 06:59 02/13/25 20:25 10 ML Heparin Sodium (Porcine) (HEParin 5,000 UNIT VIAL) 5,000 unit Q12H SQ 02/02/25 09:00 02/07/25 09:36 DC 02/06/25 21:46 5,000 UNIT Hydralazine HCl (APRESOLine 20MG INJ) 10 mg Q6H PRN IV For:SBP above 160;DBP above 90 02/02/25 07:00 03/04/25 06:59 Insulin Human Regular (humuLIN R 100 UNIT/ML 3ML) INSULIN SLIDING SCAL... ACHS SQ 02/02/25 07:30 03/04/25 07:29 Ketorolac Tromethamine (toRADol) 15 mg Q8H PRN IV MODERATE PAIN (4-6) 02/02/25 07:00 02/02/25 07:05 DC Lactulose (Constulose 20gm/ 30ml Udcup) 20 gm BID PO 02/02/25 21:00 03/04/25 20:59 02/14/25 07:57 20 GM Lactulose (Constulose 20gm/ 30ml Udcup) 20 gm BID PRN PO CONSTIPATION 02/02/25 07:00 03/04/25 06:59 Magnesium Sulfate 50 ml @ 0 mls/hr PROTOCOL IV 02/03/25 12:00 03/05/25 11:59 02/13/25 10:42 25 MLS/HR Magnesium Sulfate 50 ml @ 0 mls/hr PROTOCOL IV 02/05/25 07:00 02/05/25 06:43 DC Magnesium Sulfate 50 ml @ 0 mls/hr PROTOCOL IV 02/06/25 09:00 02/06/25 08:48 DC Magnesium Sulfate 50 ml @ 0 mls/hr PROTOCOL IV 02/07/25 10:00 02/07/25 09:36 DC Magnesium Sulfate 50 ml @ 0 mls/hr PROTOCOL IV 02/08/25 09:30 02/08/25 09:26 DC Magnesium Sulfate 50 ml @ 0 mls/hr PROTOCOL IV 02/09/25 10:00 02/09/25 09:55 DC Magnesium Sulfate 50 ml @ 0 mls/hr PROTOCOL IV 02/10/25 09:30 02/10/25 09:28 DC Magnesium Sulfate 50 ml @ 0 mls/hr PROTOCOL PRN IV other 02/02/25 07:00 02/03/25 11:49 DC Morphine Sulfate (morPHINE 2MG SYG) 1 mg Q4H PRN IVP SEVERE PAIN (7-10) 02/02/25 07:00 02/04/25 11:47 DC 02/03/25 03:20 1 MG Morphine Sulfate (morPHINE 2MG SYG) 2 mg Q4H PRN IVP SEVERE PAIN (7-10) 02/04/25 15:00 02/09/25 17:59 DC 02/09/25 05:18 2 MG Morphine Sulfate (morPHINE 2MG SYG) 2 mg Q4H PRN IVP SEVERE PAIN (7-10) 02/11/25 03:30 02/18/25 03:29 02/13/25 21:05 2 MG Multivitamins/ Minerals (Centrum) 1 tab DAILY PO 02/03/25 09:00 03/05/25 08:59 02/14/25 07:57 1 TAB Nitroglycerin (Nitrostat) 0.4 mg PROTOCOL PRN SL CHEST PAIN 02/02/25 07:00 03/04/25 06:59 Octreotide Acetate 1250 mcg/ Sodium Chloride 250 ml @ 0 mls/hr PROTOCOL IV 02/07/25 10:00 02/12/25 11:18 DC 02/07/25 19:16 5 MLS/HR Ondansetron HCl (zoFRAN 4MG INJ) 4 mg Q6H PRN IV NAUSEA/VOMITING 02/02/25 07:00 03/04/25 06:59 02/13/25 10:47 4 MG Oxycodone/ Acetaminophen (perCOCET) 1 tab Q6H PRN PO SEVERE PAIN (7-10) 02/02/25 07:00 02/04/25 07:07 DC 02/03/25 13:00 1 TAB Pantoprazole Sodium (PROTonix 40MG TAB) 40 mg DAILY PO 02/13/25 09:00 03/15/25 08:59 02/14/25 07:57 40 MG Pantoprazole Sodium 80 mg/ Sodium Chloride 100 ml @ 10 mls/hr Q10H IV 02/07/25 10:00 02/07/25 16:34 DC 02/07/25 15:42 10 MLS/HR Pantoprazole Sodium 80 mg/ Sodium Chloride 100 ml @ 10 mls/hr Q10H IV 02/07/25 22:00 02/12/25 11:18 DC 02/12/25 02:10 10 MLS/HR Piperacillin Sod/ Tazobactam Sod 50 ml @ 12.5 mls/hr ONCE IV 02/07/25 16:30 02/07/25 20:30 DC 02/07/25 17:40 12.5 MLS/HR Piperacillin Sod/ Tazobactam Sod 50 ml @ 12.5 mls/hr Q8H IV 02/02/25 13:00 02/07/25 16:34 DC 02/07/25 16:19 12.5 MLS/HR Piperacillin Sod/ Tazobactam Sod 50 ml @ 12.5 mls/hr Q8H6 IV 02/07/25 22:00 02/17/25 21:59 02/14/25 05:14 12.5 MLS/HR Potassium Chloride 100 ml @ 100 mls/hr AD PRN IV POTASSIUM PROTOCOL 02/02/25 07:00 03/04/25 06:59 Potassium Chloride (K-Dur/Klor-Con 20meq) 20 meq AD PRN PO POTASSIUM PROTOCOL 02/02/25 07:00 03/04/25 06:59 02/13/25 20:33 20 MEQ Potassium Chloride (KCl 10% Elixir 20meq/15ml) 20 meq AD PRN PO POTASSIUM PROTOCOL 02/02/25 07:00 03/04/25 06:59 02/10/25 12:54 20 MEQ Spironolactone (Aldactone 25mg) 100 mg DAILY PO 02/03/25 09:00 03/05/25 08:59 02/14/25 07:57 100 MG Thiamine HCl (Vitamin B-1) 100 mg DAILY PO 02/03/25 09:00 03/05/25 08:59 02/14/25 07:57 100 MG Trazodone HCl (DesyREL/OlepTRO) 50 mg HS PO 02/05/25 21:00 03/07/25 20:59 02/13/25 20:25 50 MG Zolpidem Tartrate (AmbIEN) 5 mg HS PRN PO INSOMNIA 02/02/25 07:00 03/04/25 06:59 DIAGNOSTICS / RADIOLOGY: [ ] Assessment Increasing pleural effusion per CT Alcoholic cirrhosis with portal hypertension, large ascites, and pleural effus ion. Resolving hepatic subcapsular collection (likely hematoma/inflammatory, stable). Recent GI bleed (gastric varices, s/p EGD, on octreotide and PPI). Anemia (stable, post-transfusion, monitor H&H). Electrolyte abnormalities (hypomagnesemia, hypoalbuminemia, hyponatremiaimproving). Infection risk (on broad-spectrum antibiotics, WBC normalized, afebrile). TIPS in place (patent, IR to re-evaluate as needed). PLAN: patient remains admitted to the medical floor, alert oriented x3 at the time of my visit, no chest pain, no shortness a breath, no nausea, no vomiting, no abdominal discomfort. The patient has continued scheduled for paracentesis today by IR. We will follow Pulmonary input and recommendation in terms of possible therapeutic thoracentesis. We will follow a.m. labs. Discussed with the patient, in agreement. NEURO: Minimize central acting medications as possible. Fall Precautions. Well lighted room through the day and minimize interruptions through the night to prevent acute delirium. PULMONARY: Supplemental 02 as needed BiPAP as necessary, for respiratory distress Titrate Fio2 to keep Spo2 > or = 90% DuoNebs and CPT as needed IS hourly while awake for pulmonary hygiene prn Out of bed to chair as tolerated Maintain aspiration precautions at all times CARDIOVASCULAR: Follow hemodynamics. Vital signs per facility protocol GI & NUTRITION: Continue nutritional support Aspirations precautions Prokinetic agents and laxatives as needed KIDNEYS & ELECTROLYTES: Strict monitoring of intake and output Daily weights Avoid nephrotoxic agents Monitor electrolytes and replace as needed Goal urine output of 30mL/hr or 0.5mL/kg/hr Medications to be dosed according to renal function. Avoid contrast if possible ENDOCRINE: Maintain blood glucose between 100-180 at all times. Insulin sliding scale for blood glucose management Hypoglycemia and hyperglycemia protocol in place INFECTIOUS DISEASE: Trend temperature, WBC and procalcitonin level Follow cultures, deescalate antibiotics as soon as possible. Panculture if new onset fever HEMATOLOGY & COAGULATION: Monitor H&H. Keep Hgb > 7 Transfuse 1 unit of PRBC for Hgb < 7 Transfuse 1 pack of platelets of platelets < 20, 000 Watch for any signs and symptoms of bleeding SKIN: Pressure ulcer prevention per facility protocol Specialty mattress as needed ORTHO/REHAB Continue PT/OT PRN: MEDICATIONS Tylenol 650 mg po every 4 hrs for fever zofran 4 mg IV every 6 hrs for n/v Hydralazine 5 mg IV every 4 hrs systolic pressure > 160 bowel regiment: lactulose 20 gm PO BID PRN constipation Supportive measures: Continue GI and DVT prophylaxis Disposition: Pending improvement in clinical condition All questions answered time spent: > 35 min NELDA GRIJALVA MD Feb 14, 2025 12:54
--- NOTE | 2025-02-14 16:19 | HMCIMG ---
EXAM: CR Chest, 1 View. CLINICAL HISTORY: pleural effusion COMPARISON: CT abdomen and pelvis dated 02/10/2025. CR chest dated 02/05/2025 FINDINGS: LUNGS: Mild interval increase in the right moderate pleural effusion with adjacent lung atelectasis as compared to the previous radiograph. PLEURAL SPACES: No pneumothorax. MEDIASTINUM: The cardiac size is stable. BONES: No aggressive appearing osseous lesion seen. IMPRESSION: Interval increase in right moderate pleural effusion with adjacent lung atelectasis, as compared to the previous radiograph. /Waterflow
--- NOTE | 2025-02-14 19:35 | PN ---
GASTROENTEROLOGY PROGRESS NOTE Date of Visit: Feb 14, 2025 Time of Visit: 19:35 Events / Notes: [ ] Review of Systems: CONSTITUTIONAL: No malaise or change in sensation of wellbeing. ENMT: No rhinorrhea, otorrhea, sinus pain, ear ache. CARDIOVASCULAR: No angina, palpitations, orthopnea or paroxysmal dyspnea. RESPIRATORY: No SOB. GASTROINTESTINAL: No abdominal pain, nausea, vomiting, diarrhea, hematemesis, melena or change in the patient's habitual bowel movements consistency/number. GENITOURINARY: No dysuria, hematuria or change in bladder continence. MUSCULOSKELETAL: No new muscle pain or decrease in muscular strength. No new joint swelling, redness or tenderness. SKIN: No new rash. Physical Exam: GEN: Awake, alert, oriented in person, time and place, and in no acute distress. HEENT: No sinus tenderness. Tympanic membranes were not examined. No rhinorrhea. Oral pharyngeal mucosa is pink, moist and within normal limits. Neck is supple with no cervical lymphadenopathy, thyromegaly or JVD. CHEST: Inspection, palpation and percussion of the chest were unremarkable. Lung auscultation revealed normal breath sounds bilaterally. CARDIAC: PMI is within normal limits. Heart sounds are regular. Normal S1, S2. No gallop or murmur. ABD: Soft, non-tender and not distended. No peritoneal signs on palpation. No organomegaly. Normal bowel sounds. EXT: No cyanosis or clubbing. No edema. SKIN: Intact. No rashes. JOINTS: No evidence of synovitis or acute arthritis. NEURO: Alert and oriented to name, place and person. Cranial nerve examination is unremarkable. No focal motor deficits. Normal speech. Gait is normal. Strength is normal. Vital Signs (last 8hr) Date Time Temp Pulse Resp B/P (MAP) Pulse Ox O2 Delivery O2 Flow Rate FiO2 02/14/25 16:00 98.2 107 18 121/76 95 Room Air 02/14/25 12:00 98.4 108 19 117/61 97 Nasal Cannula 2.0 Laboratory: [ ] Laboratory: Test 02/14/25 16:26 02/14/25 05:58 02/13/25 05:49 Range/Units Whole Blood Glucose 106 70-110 MG/DL White Blood Count 7.5 4.8-10.8 K/uL Red Blood Count 2.62 L 4.50-6.20 MIL/uL Hemoglobin 8.6 L 14.0-18.0 g/dL Hematocrit 26.2 L 42-54 % Mean Corpuscular Volume 100.0 H 79-99 fL Mean Corpuscular Hemoglobin 32.8 27.0-33.0 pg Mean Corpuscular Hemoglobin Concent 32.8 32.0-36.0 g/dL Red Cell Distribution Width 17.7 H 11.0-15.5 % Platelet Count 203 130-400 K/uL Mean Platelet Volume 8.8 7.5-10.5 fL Nucleated Red Blood Cells 0.0 0.0-0.19 % Prothrombin Time 13.2 H 9.6-11.6 SEC Prothromb Time International Ratio 1.28 H 0.85-1.15 Activated Partial Thromboplast Time 32.5 26.3-35.5 SEC Sodium Level 135 L 136-145 mmol/L Potassium Level 3.9 3.5-5.1 mmol/L Chloride Level 102 101-111 mmol/L Carbon Dioxide Level 27 21-32 mmol/L Blood Urea Nitrogen 8 7-18 mg/dL Creatinine 0.6 0.5-1.3 mg/dL Glomerular Filtration Rate Calc 116 >90 mL/min Random Glucose 91 70-105 mg/dL Total Calcium 7.5 L 8.5-10.1 mg/dL Magnesium Level 2.30 1.80-2.40 mg/dL Red Blood Cell Morphology See comments Total Bilirubin 1.0 0.2-1.0 mg/dL Aspartate Amino Transf (AST/SGOT) 25 10-37 U/L Alanine Aminotransferase (ALT/SGPT) 13 12-78 U/L Alkaline Phosphatase 155 H 50-136 U/L Total Protein 5.5 L 6.0-8.3 g/dL Albumin 1.7 L 3.5-5.0 g/dL Current Medications Medications (Trade) Dose Ordered Sig/Ronak Route PRN Reason Start Time Stop Time Status Last Admin Dose Admin Acetaminophen (TYLenol 325MG TAB) 650 mg Q4H PRN PO MILD PAIN (1-3) 02/02/25 07:00 03/04/25 06:59 Acetaminophen (TYLenol 325MG TAB) 650 mg Q6H PRN PO MILD PAIN (1-3) 02/02/25 07:00 02/02/25 07:05 DC Acetaminophen (TYLenol 325MG TAB) 650 mg Q6H PRN PO TEMPERATURE GREATER THAN 101.5 02/02/25 07:00 03/04/25 06:59 Acetaminophen/ Hydrocodone Bitart (NORco 5/325MG) 1 tab Q6H PRN PO MODERATE PAIN (4-6) 02/02/25 07:00 02/07/25 06:59 DC 02/06/25 20:01 1 TAB Al Hydroxide/Mg Hydroxide (MAALox PLUS 30ML) 30 ml Q6H PRN PO INDIGESTION 02/02/25 07:00 03/04/25 06:59 Albumin Human 100 ml @ 100 mls/hr AD IV 02/04/25 09:00 02/07/25 09:41 DC 02/04/25 09:37 100 MLS/HR Albumin Human 200 ml @ 0 mls/hr AD IV 02/07/25 11:30 02/08/25 11:29 DC 02/07/25 15:41 100 MLS/HR Albumin Human 250 ml @ 375 mls/hr AD IV 02/05/25 21:00 02/07/25 11:24 DC 02/05/25 22:04 375 MLS/HR Dextrose (D50w) 50 ml AD PRN IV HYPOGLYCEMIA PROTOCOL 02/02/25 07:00 02/03/25 07:51 DC Dextrose (D50w) 50 ml AD PRN IV HYPOGLYCEMIA PROTOCOL 02/03/25 08:00 03/05/25 07:59 Diphenhydramine HCl (BENAdryl INJ) 25 mg Q6H PRN IV SEVERE ITCHING/RASH 02/02/25 07:00 03/04/25 06:59 Famotidine (Pepcid 20mg Vial) 20 mg BID IV 02/02/25 09:00 02/08/25 09:09 DC 02/07/25 21:12 20 MG Famotidine (Pepcid 20mg Vial) 20 mg BID PRN IV NAUSEA/VOMITING 02/02/25 07:00 02/02/25 07:05 DC Furosemide (LASix 40MG TAB) 40 mg DAILY PO 02/03/25 09:00 02/02/25 10:15 DC Furosemide (LASix 40MG VIAL) 40 mg BID IVP 02/02/25 09:00 03/04/25 08:59 02/14/25 07:57 40 MG Glucagon (Glucagon 1mg Kit) 1 mg AD PRN IM HYPOGLYCEMIA PROTOCOL 02/02/25 07:00 02/03/25 07:52 DC Glucagon (Glucagon 1mg Kit) 1 mg AD PRN IM HYPOGLYCEMIA PROTOCOL 02/03/25 08:00 03/05/25 07:59 Guaifenesin/ Dextromethorphan (RobiTUSSin DM 200/20MG 10ML) 10 ml Q4H PRN PO COUGH 02/02/25 07:00 03/04/25 06:59 02/13/25 20:25 10 ML Heparin Sodium (Porcine) (HEParin 5,000 UNIT VIAL) 5,000 unit Q12H SQ 02/02/25 09:00 02/07/25 09:36 DC 02/06/25 21:46 5,000 UNIT Hydralazine HCl (APRESOLine 20MG INJ) 10 mg Q6H PRN IV For:SBP above 160;DBP above 90 02/02/25 07:00 03/04/25 06:59 Insulin Human Regular (humuLIN R 100 UNIT/ML 3ML) INSULIN SLIDING SCAL... ACHS SQ 02/02/25 07:30 03/04/25 07:29 Ketorolac Tromethamine (toRADol) 15 mg Q8H PRN IV MODERATE PAIN (4-6) 02/02/25 07:00 02/02/25 07:05 DC Lactulose (Constulose 20gm/ 30ml Udcup) 20 gm BID PO 02/02/25 21:00 03/04/25 20:59 02/14/25 07:57 20 GM Lactulose (Constulose 20gm/ 30ml Udcup) 20 gm BID PRN PO CONSTIPATION 02/02/25 07:00 03/04/25 06:59 Magnesium Sulfate 50 ml @ 0 mls/hr PROTOCOL IV 02/03/25 12:00 03/05/25 11:59 02/13/25 10:42 25 MLS/HR Magnesium Sulfate 50 ml @ 0 mls/hr PROTOCOL IV 02/05/25 07:00 02/05/25 06:43 DC Magnesium Sulfate 50 ml @ 0 mls/hr PROTOCOL IV 02/06/25 09:00 02/06/25 08:48 DC Magnesium Sulfate 50 ml @ 0 mls/hr PROTOCOL IV 02/07/25 10:00 02/07/25 09:36 DC Magnesium Sulfate 50 ml @ 0 mls/hr PROTOCOL IV 02/08/25 09:30 02/08/25 09:26 DC Magnesium Sulfate 50 ml @ 0 mls/hr PROTOCOL IV 02/09/25 10:00 02/09/25 09:55 DC Magnesium Sulfate 50 ml @ 0 mls/hr PROTOCOL IV 02/10/25 09:30 02/10/25 09:28 DC Magnesium Sulfate 50 ml @ 0 mls/hr PROTOCOL PRN IV other 02/02/25 07:00 02/03/25 11:49 DC Morphine Sulfate (morPHINE 2MG SYG) 1 mg Q4H PRN IVP SEVERE PAIN (7-10) 02/02/25 07:00 02/04/25 11:47 DC 02/03/25 03:20 1 MG Morphine Sulfate (morPHINE 2MG SYG) 2 mg Q4H PRN IVP SEVERE PAIN (7-10) 02/04/25 15:00 02/09/25 17:59 DC 02/09/25 05:18 2 MG Morphine Sulfate (morPHINE 2MG SYG) 2 mg Q4H PRN IVP SEVERE PAIN (7-10) 02/11/25 03:30 02/18/25 03:29 02/13/25 21:05 2 MG Multivitamins/ Minerals (Centrum) 1 tab DAILY PO 02/03/25 09:00 03/05/25 08:59 02/14/25 07:57 1 TAB Nitroglycerin (Nitrostat) 0.4 mg PROTOCOL PRN SL CHEST PAIN 02/02/25 07:00 03/04/25 06:59 Octreotide Acetate 1250 mcg/ Sodium Chloride 250 ml @ 0 mls/hr PROTOCOL IV 02/07/25 10:00 02/12/25 11:18 DC 02/07/25 19:16 5 MLS/HR Ondansetron HCl (zoFRAN 4MG INJ) 4 mg Q6H PRN IV NAUSEA/VOMITING 02/02/25 07:00 03/04/25 06:59 02/13/25 10:47 4 MG Oxycodone/ Acetaminophen (perCOCET) 1 tab Q6H PRN PO SEVERE PAIN (7-10) 02/02/25 07:00 02/04/25 07:07 DC 02/03/25 13:00 1 TAB Pantoprazole Sodium (PROTonix 40MG TAB) 40 mg DAILY PO 02/13/25 09:00 03/15/25 08:59 02/14/25 07:57 40 MG Pantoprazole Sodium 80 mg/ Sodium Chloride 100 ml @ 10 mls/hr Q10H IV 02/07/25 10:00 02/07/25 16:34 DC 02/07/25 15:42 10 MLS/HR Pantoprazole Sodium 80 mg/ Sodium Chloride 100 ml @ 10 mls/hr Q10H IV 02/07/25 22:00 02/12/25 11:18 DC 02/12/25 02:10 10 MLS/HR Piperacillin Sod/ Tazobactam Sod 50 ml @ 12.5 mls/hr ONCE IV 02/07/25 16:30 02/07/25 20:30 DC 02/07/25 17:40 12.5 MLS/HR Piperacillin Sod/ Tazobactam Sod 50 ml @ 12.5 mls/hr Q8H IV 02/02/25 13:00 02/07/25 16:34 DC 02/07/25 16:19 12.5 MLS/HR Piperacillin Sod/ Tazobactam Sod 50 ml @ 12.5 mls/hr Q8H6 IV 02/07/25 22:00 02/17/25 21:59 02/14/25 15:02 12.5 MLS/HR Potassium Chloride 100 ml @ 100 mls/hr AD PRN IV POTASSIUM PROTOCOL 02/02/25 07:00 03/04/25 06:59 Potassium Chloride (K-Dur/Klor-Con 20meq) 20 meq AD PRN PO POTASSIUM PROTOCOL 02/02/25 07:00 03/04/25 06:59 02/13/25 20:33 20 MEQ Potassium Chloride (KCl 10% Elixir 20meq/15ml) 20 meq AD PRN PO POTASSIUM PROTOCOL 02/02/25 07:00 03/04/25 06:59 02/10/25 12:54 20 MEQ Spironolactone (Aldactone 25mg) 100 mg DAILY PO 02/03/25 09:00 03/05/25 08:59 02/14/25 07:57 100 MG Thiamine HCl (Vitamin B-1) 100 mg DAILY PO 02/03/25 09:00 03/05/25 08:59 02/14/25 07:57 100 MG Trazodone HCl (DesyREL/OlepTRO) 50 mg HS PO 02/05/25 21:00 03/07/25 20:59 02/13/25 20:25 50 MG Zolpidem Tartrate (AmbIEN) 5 mg HS PRN PO INSOMNIA 02/02/25 07:00 03/04/25 06:59 Diagnostics / Radiology: [COPY/PASTE HERE IF NO REPORTS PLEASE DELETE SECTION] Assessment: GI bleed Gastric varices Anemia Cirrhosis Pleural effusion Ascites Plan: Continue GI prophylaxis Advance diet as tolerated Avoid NSAIDs Antireflux measures Monitor H&H and transfuse as needed Call with questions, concerns or change in clinical status Patient to follow-up at clinic post discharge Thank you for this consult EMELIA STOKES COST ACCOUNTING MANAGER Feb 14, 2025 19:35
[2025-02-15 04:00] VITALS: BP 106/57; PULSE 103; RESP 17; TEMP 97.7
[2025-02-15 06:11] LABS: NUCLEATED RED BLOOD CELLS 0.0 % (0.0-0.19); PLATELET COUNT (AUTO) 247.0 K/uL (130-400); RED BLOOD CELL COUNT(AUTO) 2.74 MIL/uL (4.50-6.20); RED CELL DISTRIBUTION WIDTH 17.9 % (11.0-15.5); WHITE BLOOD COUNT (AUTO) 7.9 K/uL (4.8-10.8)
[2025-02-15 06:27] LABS: ASPARTATE AMINOTRANSFERASE 27.0 U/L (10-37); CREATININE 0.6 mg/dL (0.5-1.3); GLOMERULAR FILTR. RATE CALC 116.0 mL/min (>90); GLUCOSE,RANDOM 88.0 mg/dL (70-105); SODIUM SERUM 136.0 mmol/L (136-145); TOTAL PROTEIN, SERUM 5.9 g/dL (6.0-8.3); UREA NITROGEN, BLOOD 8.0 mg/dL (7-18)
[2025-02-15 08:00] VITALS: BP 116/68; PULSE 85; RESP 17; TEMP 98.1
[2025-02-15 12:00] VITALS: BP 107/67; PULSE 104; RESP 18; TEMP 97.5
[2025-02-15] MEDS: MAGNESIUM 2GM PREMIX 50ML 50 ML IV SCH (12:05)
--- NOTE | 2025-02-15 12:17 | DS ---
Discharge Summary Hospital Course Summary: The patient admitted to hospital February 02, 2025 with the following history of present illness: Patient is54 years old male with a past medical history of alcoholic cirrhosis of liver, multiple recurrent ascites s/p paracentesis, portal gastropathy, hyponatremia and pleural effusion who came to emergency department with a complaint of shortness of breaths, vomiting, progressive cough for the past three days. Patient stated that recently he was discharged on 01/25/2025 where he was diagnosed with moderate to large pleural effusion] Most recent vital signs temperature 99.9 pulse 106 respirations 16 blood pressure 110/75 patient is on room air satting 100%. WBC 10.7 Hemoglobin 8.2 hematocrit 25platelets 191 , urinalysis negative. Influenza A negative influenza B negative COVID negative. Toxicology negative. Sodium 129 potassium 4.0 CO2 26 BUN nine creatinine 0.7 [id number] lactic 1.8 ammonia 42. Chest x-ray showed moderate right pleural effusion with lung atelectasis no evidence of pneumothorax. Chest CT showed large right-sided pleural effusion which is causing atelectasis of the right lower lung. There is a tips shunt in place. 2D echo more than 65% left ventricle diastolic function is normal. We consulted battery assembler dry cell for further evaluation/recommendation. Patient is pending thoracentesis on 02/02/2025. Patient will be admitted under hospitalist care for further evaluation/recommendation. HOSPITAL COURSE 02/02 Patient is54 years old male with a past medical history of alcoholic cirrhosis of liver, multiple recurrent ascites s/p paracentesis, portal gastropathy, hyponatremia and pleural effusion who came to emergency department with a complaint of shortness of breaths, vomiting, progressive cough for the past three days. Patient stated that recently he was discharged on 01/25/2025 where he was diagnosed with moderate to large pleural effusion] Most recent vital signs temperature 99.9 pulse 106 respirations 16 blood pressure 110/75 patient is on room air satting 100%. WBC 10.7 Hemoglobin 8.2 hematocrit 25platelets 191 , urinalysis negative. Influenza A negative influenza B negative COVID negative. Toxicology negative. Sodium 129 potassium 4.0 CO2 26 BUN nine creatinine 0.7 [id number] lactic 1.8 ammonia 42. Chest x-ray showed moderate right pleural effusion with lung atelectasis no evidence of pneumothorax. Chest CT showed large right-sided pleural effusion which is causing atelectasis of the right lower lung. There is a tips shunt in place. 2D echo more than 65% left ventricle diastolic function is normal. We consulted battery assembler dry cell for further evaluation/recommendation. Patient is pending thoracentesis on 02/02/2025. Patient will be admitted under hospitalist care for further evaluation/recommendation. 02/03 patient was seen by nurse practitioner and physician during rounding in r oom 319. Chest x-ray showed moderate right pleural effusion. CT chest showed large right pleural effusion/atelectasis and large ascites in the abdomen. 2D echo showed EF of more than 60% normal function. Patient is pending thoracentesis as per battery assembler dry cell. We will also order IR for the paracentesis for large ascites in the abdomen. As per patient he sees Dr. Stephanie MONSON and his neck is appointment for the paracentesis is on Friday02/11/2025 at 5:00 p.m.. At this moment we will continue to monitor patient in the meantime. A.m. labs. 02/04/25 patient was seen by PANEL BUILDER and physician. [facility] was unable to perform thoracentesis. At this moment they recommend to continue with furosemide and spironolactone and do paracentesis 1st. At this moment we do not have IR in the building. We will continue to monitor patient in the meantime. A.m. labs. Patient updated with the further plan and recommendations 02/05/25 patient was seen by nurse practitioner and physician during rounding in room 319. Dr. Persaud from pulmonology, attention to do thoracentesis yesterday 02/04/2025 unfortunately procedure was unsuccessful. We will order IR for thoracentesis and IR for paracentesis for Friday02/07/2025. Continue furosemide 40 mg IV push b.i.d. and spironolactone in the meantime. Continue to monitor patient in the meantime. A.m. labs 02/06/25 patient was seen by nurse practitioner and physician during rounding in room 319. WBC trending down today at 9.0 H&H stable. Blood culture negative x4 days. Patient continues to be on vanco and Zosyn. Pulmonology Dr. Morgan was in to perform thoracentesis yesterday 02/05/2025 on right side and was able to withdrawal 700 cc of pleural fluids. Patient is pending paracentesis by IR tomorrow 02/07/2025. We will continue to monitor patient in the meantime. A.m. labs] 02/07 the patient has been seen and examined at bedside, case discussed with the RN. The time of my visit he is comfortably in bed, back from having paracentesis by IR, total of 6.1 L removed, tolerated the procedure well. At the time of my visit he is alert oriented x3, hemodynamically stable, denies dizziness, no blurry vision, no chest pain, shortness shortness for breath, no nausea, no vomiting, no abdominal pain. Hemoglobin 7.0, stool occult blood positive. We will discontinue heparin subcutaneously, we will start the patient on Protonix and octreotide drip, we will transfuse 1 unit of PRBC, GI consultation requested, we will follow input and recommendation. Discussed with the patient, all questions answered, agreed and understood the information provided. 02/08 patient is seen and examined at bedside, discussed with the RN, no acute events overnight, at the time of my visit comfortably in bed, awake, following commands, transfusion of 1 unit of PRBC done yesterday, tolerated well, hemoglobin today 8.4, hematocrit 25.3. Patient evaluated by GI, plan for EGD tomorrow. Level 1.6, we will give 2 g of magnesium sulfate IV x1, keep potassium above four and magnesium above two. Discussed with the patient, all questions answered, agreed and understood the information provided. 02/09 the patient has been seen and examined at bedside, case discussed with the RN, no acute events overnight, patient is status post EGD today, tolerated well, findings of gastritis. Magnesium level of 1.7, replace IV per protocol to keep magnesium level above two. Plan for possible TIPS procedure today by intervention radiologist, discussed with the patient. 02/10 patient is seen and examined at bedside, discussed with the RN, no acute events overnight, patient underwent tips revision 04/12/2024, tolerated the procedure well. 02/11/25 Patient denies any new complaints today. No abdominal pain, shortness of breath, chest pain, nausea, vomiting, or bleeding. No fevers, chills, or other constitutional symptoms. 02/12/25 Patient was evaluated in the room. He denies any abdominal pain, but noted slight distention on his abdomen. We discuss the CT abd/pelvis report, he has increase pleural effusion, more than previous CT. I spoke with Pulmo team and probably benefit from Aneudy. So far, patient denies any SOB, we will continue to follow. 02/14/28 Patient was seen in room 319, so c/o abd pain. Labs reviewed with the patient. So far no concerns related by nursing today. Plan is for him for paracentesis tomorrow with IR, and possible thoracentesis as well. 02/14 patient remains admitted to the medical floor, alert oriented x3 at the time of my visit, no chest pain, no shortness a breath, no nausea, no vomiting, no abdominal discomfort. The patient has continued scheduled for paracentesis today by IR. We will follow Pulmonary input and recommendation in terms of possible therapeutic thoracentesis. We will follow a.m. labs. Discussed with the patient, in agreement. 02/15 patient comfortably in bed, alert oriented x3, no acute events overnight, denied chest pain, shortness shortness for breath, no nausea, no vomiting, no abdominal discomfort, not enough fluid in the abdomen to perform paracentesis. Patient to be discharged home today. Supervisor Records Change(s): GI Services, Pulmonary Services and interventional radiologist. Procedure(s): [address] [place] [address], [place] [address] DATE OF PROCEDURE: 02/09/2025 STUDIES PERFORMED: * Percutaneous fluoroscopy guided TIPS revision. * Portal and TIPS pressure measurement pre and post balloon angioplasty and stenting. * Portography pre and post TIPS revision. PROCEDURE DETAILS: The right neck was prepped and draped in the usual sterile technique. 1% Xylocaine was used for local anesthetic. Under ultrasound guidance, using a micropuncture kit, the right internal jugular vein was accessed. Through this, an angiographic wire and an 8-[place] sheath were placed. A 5-[place] C2 catheter was then placed into the TIPS shunt into the main portal vein. Portography demonstrated the portal vein to be patent, the TIPS shunt to be patent. The portal pressure was measured. Main pressures were 10 mm of water. Portal pressure was 18. Proximal TIPS shunt was 10 mm, mid portion is 14 mmHg, and distal TIPS shunt measurement is 12 mmHg. A balloon was deployed at the level of the mid shunt. The balloon catheter is 6 cm length, 12 mm diameter, which was angioplastied. In the mid portion of the stent, there is stenosis seen, which is not seen on the portography. The entire length of the TIPS shunt was angioplastied for 2 minutes each. Post angioplasty, there was still some narrowing seen. Therefore, a covered stent, 11 mm x 59 mm balloon expandable was deployed. This was angioplastied for approximately 30 seconds. Post stent deployment, portography was performed, demonstrated no stenosis identified. Followup portal pressure, main portal pressure was 13 mm, distal portal stent pressure is 11 mm, mid portal stent pressure is 12 mm, and proximal portal stent is 12 mm. The catheter, the wires, and the sheath were removed and the right neck hemostasis was obtained. IMPRESSION: TIPS revision of the TIPS shunt using covered stent and balloon angioplasty as described above. The patient tolerated the procedure well. RECOMMENDATIONS: * I would recommend a post revision tip Doppler tomorrow. * The patient is to return in 1 month and every 3 months for followup. TID: [id number] RECEIPT: [id number] Electronically Signed by: Electronically Co-Signed by: Assessment/Plan: Assessment/Plan: Final diagnosis Moderate bilateral pleural effusion, POA Alcoholic cirrhosis with portal hypertension, large ascites, and pleural effusion. Resolving hepatic subcapsular collection (likely hematoma/inflammatory, stable). Recent GI bleed (gastric varices, s/p EGD, on octreotide and PPI). Anemia (stable, post-transfusion, monitor H&H). Electrolyte abnormalities (hypomagnesemia, hypoalbuminemia, hyponatremiaimproving). Infection risk (on broad-spectrum antibiotics, WBC normalized, afebrile). TIPS in place (patent, IR to re-evaluate as needed). Discharge Instructions: The patient to follow with primary care physician as an outpatient, return to the hospital if condition changes, patient agreed with the plan and understood the information provided. Home Medications: Active Scripts Midodrine HCl (Midodrine HCl) 5 Mg Tablet, 1 TAB PO TID for 30 Days, #90 TAB 0 Refills Prov:MICHOACANO ORTIZ MD 01/18/25 Lactulose (Lactulose) 10 Gram/15 Ml Solution, 30 ML PO BID for constipation, #500 ML 1 Refill Prov:RADHA MEDINA DIRECTOR OF CASEWORK SERVICES 01/10/25 Spironolactone (Spironolactone) 100 Mg Tablet, 1 TAB PO DAILY for 30 Days, #30 TAB 0 Refills Prov:TING LOU MD 12/21/24 Furosemide (Furosemide) 40 Mg Tablet, 1 TAB PO DAILY for 30 Days, #30 TAB 0 Refills Prov:TING LOU MD 12/21/24 Reported Medications Sucralfate (Sucralfate) 1 Gram Tablet, 1 TAB PO QID for 30 Days, #120 TAB 0 Refills 02/02/25 Thiamine HCl (Vitamin B-1) 100 Mg Tablet, 1 TAB PO DAILY for 30 Days, #30 TAB 0 Refills 12/15/24 Multivitamin with Minerals (Daily Vitamin Formula-Minerals) 1 Each Tablet, 1 TAB PO DAILY for 30 Days, #30 TAB 0 Refills 12/15/24 Time spent arranging discharge: 31-60 minutes NELDA GRIJALVA MD Feb 15, 2025 12:17
--- NOTE | 2025-02-15 13:51 | PN ---
[facility] PROGRESS NOTE Date Patient Seen: Feb 15, 2025 Time of Visit: 13:50 Supervising Physician: Dr. Miko De La Torre PROBLEM LIST: Acute sepsis, POA Acute anemia with a hemoglobin of 7.0, requiring PRBCs transfusion Large Ascites s/p paracentesis 02/07/25 Large pleural effusion per chest x-ray and CT chest POA S/P right thoracentesis on 02/05/25 with 800ml removed Alcoholic liver cirrhosis s/p multiple paracentesis, POA Electrolyte imbalance (hyponatremia), POA Multifactorial anemia, POA INTERVAL HISTORY: Patient assessed at bedside. AAOX3. Sitting on bedside chair. Currently on room air. Able to voice needs and follow commands. Denies any chest pain, abdominal pain, nausea or vomiting. States he wants to go home. Yesterday patient went for paracentesis, but not enough fluid. Bedside US done by coworker CAROLYN Bunch/Dr. De La Torre today and not enough fluid for thoracentesis. Plan Inadequate volume of pleural effusion for thoracentesis per US chest at bedside on 02/15/2025 Monitor respiratory status in the presence of pleural effusion Okay to discharge from pulmonary standpoint Recommended to follow up with pulmonology once discharged REVIEW OF SYSTEMS: 12 point ROS reviewed with patient. Pertinent positives mentioned above. Otherwise negative. PHYSICAL EXAM: GENERAL: alert, weak, awake oriented x 3 HEENT: EOMI, Sclera non icteric, moist mucosa NECK: Supple, no JVD, trachea midline LUNGS: Clear breath sounds bilaterally. No wheezes HEART: Regular rate and rhythm. Normal S1 and S2, without murmurs ABD: Abdomen distended, fluid wave present Bowel sounds present EXT: No clubbing cyanosis or edema NEURO: Alert and oriented to person, follows commands Vital Signs (last 8hr) Date Time Temp Pulse Resp B/P (MAP) Pulse Ox O2 Delivery O2 Flow Rate FiO2 02/15/25 12:00 97.5 104 18 107/67 99 Room Air 02/15/25 08:00 98.1 85 17 116/68 100 Nasal Cannula 2.0 LABS: Hematology Labs: Test 02/15/25 05:35 Range/Units White Blood Count 7.9 4.8-10.8 K/uL Red Blood Count 2.74 L 4.50-6.20 MIL/uL Hemoglobin 9.1 L 14.0-18.0 g/dL Hematocrit 27.6 L 42-54 % Mean Corpuscular Volume 100.7 H 79-99 fL Mean Corpuscular Hemoglobin 33.2 H 27.0-33.0 pg Mean Corpuscular Hemoglobin Concent 33.0 32.0-36.0 g/dL Red Cell Distribution Width 17.9 H 11.0-15.5 % Platelet Count 247 130-400 K/uL Mean Platelet Volume 8.4 7.5-10.5 fL Nucleated Red Blood Cells 0.0 0.0-0.19 % Chemistry Labs: Test 02/15/25 10:58 02/15/25 05:35 Range/Units Whole Blood Glucose 114 H 70-110 MG/DL Sodium Level 136 136-145 mmol/L Potassium Level 4.1 3.5-5.1 mmol/L Chloride Level 104 101-111 mmol/L Carbon Dioxide Level 25 21-32 mmol/L Blood Urea Nitrogen 8 7-18 mg/dL Creatinine 0.6 0.5-1.3 mg/dL Glomerular Filtration Rate Calc 116 >90 mL/min Random Glucose 88 70-105 mg/dL Total Calcium 7.8 L 8.5-10.1 mg/dL Magnesium Level 1.70 L 1.80-2.40 mg/dL Total Bilirubin 1.2 H 0.2-1.0 mg/dL Aspartate Amino Transf (AST/SGOT) 27 10-37 U/L Alanine Aminotransferase (ALT/SGPT) 15 12-78 U/L Alkaline Phosphatase 166 H 50-136 U/L Total Protein 5.9 L 6.0-8.3 g/dL Albumin 1.9 L 3.5-5.0 g/dL Coagulation Labs: Test 02/14/25 05:58 Range/Units Prothrombin Time 13.2 H 9.6-11.6 SEC Prothromb Time International Ratio 1.28 H 0.85-1.15 Activated Partial Thromboplast Time 32.5 26.3-35.5 SEC DIAGNOSTICS / RADIOLOGY RESULTS: NA Code Status: Full Resuscitation Disposition: per primary team PETER MCGUIRE [facility] Feb 15, 2025 13:51
[2025-02-15 16:00] VITALS: BP 119/67; PULSE 108; RESP 18; TEMP 98.1
--- NOTE | 2025-02-15 16:44 | PN ---
GASTROENTEROLOGY PROGRESS NOTE Date of Visit: Feb 15, 2025 Time of Visit: 16:44 Events / Notes: [ ] Review of Systems: CONSTITUTIONAL: No malaise or change in sensation of wellbeing. ENMT: No rhinorrhea, otorrhea, sinus pain, ear ache. CARDIOVASCULAR: No angina, palpitations, orthopnea or paroxysmal dyspnea. RESPIRATORY: No SOB. GASTROINTESTINAL: No abdominal pain, nausea, vomiting, diarrhea, hematemesis, melena or change in the patient's habitual bowel movements consistency/number. GENITOURINARY: No dysuria, hematuria or change in bladder continence. MUSCULOSKELETAL: No new muscle pain or decrease in muscular strength. No new joint swelling, redness or tenderness. SKIN: No new rash. Physical Exam: GEN: Awake, alert, oriented in person, time and place, and in no acute distress. HEENT: No sinus tenderness. Tympanic membranes were not examined. No rhinorrhea. Oral pharyngeal mucosa is pink, moist and within normal limits. Neck is supple with no cervical lymphadenopathy, thyromegaly or JVD. CHEST: Inspection, palpation and percussion of the chest were unremarkable. Lung auscultation revealed normal breath sounds bilaterally. CARDIAC: PMI is within normal limits. Heart sounds are regular. Normal S1, S2. No gallop or murmur. ABD: Soft, non-tender and not distended. No peritoneal signs on palpation. No organomegaly. Normal bowel sounds. EXT: No cyanosis or clubbing. No edema. SKIN: Intact. No rashes. JOINTS: No evidence of synovitis or acute arthritis. NEURO: Alert and oriented to name, place and person. Cranial nerve examination is unremarkable. No focal motor deficits. Normal speech. Gait is normal. Strength is normal. Vital Signs (last 8hr) Date Time Temp Pulse Resp B/P (MAP) Pulse Ox O2 Delivery O2 Flow Rate FiO2 02/15/25 12:00 97.5 104 18 107/67 99 Room Air Laboratory: [ ] Laboratory: Test 02/15/25 16:22 02/15/25 05:35 02/14/25 05:58 Range/Units Whole Blood Glucose 101 70-110 MG/DL White Blood Count 7.9 4.8-10.8 K/uL Red Blood Count 2.74 L 4.50-6.20 MIL/uL Hemoglobin 9.1 L 14.0-18.0 g/dL Hematocrit 27.6 L 42-54 % Mean Corpuscular Volume 100.7 H 79-99 fL Mean Corpuscular Hemoglobin 33.2 H 27.0-33.0 pg Mean Corpuscular Hemoglobin Concent 33.0 32.0-36.0 g/dL Red Cell Distribution Width 17.9 H 11.0-15.5 % Platelet Count 247 130-400 K/uL Mean Platelet Volume 8.4 7.5-10.5 fL Nucleated Red Blood Cells 0.0 0.0-0.19 % Sodium Level 136 136-145 mmol/L Potassium Level 4.1 3.5-5.1 mmol/L Chloride Level 104 101-111 mmol/L Carbon Dioxide Level 25 21-32 mmol/L Blood Urea Nitrogen 8 7-18 mg/dL Creatinine 0.6 0.5-1.3 mg/dL Glomerular Filtration Rate Calc 116 >90 mL/min Random Glucose 88 70-105 mg/dL Total Calcium 7.8 L 8.5-10.1 mg/dL Magnesium Level 1.70 L 1.80-2.40 mg/dL Total Bilirubin 1.2 H 0.2-1.0 mg/dL Aspartate Amino Transf (AST/SGOT) 27 10-37 U/L Alanine Aminotransferase (ALT/SGPT) 15 12-78 U/L Alkaline Phosphatase 166 H 50-136 U/L Total Protein 5.9 L 6.0-8.3 g/dL Albumin 1.9 L 3.5-5.0 g/dL Prothrombin Time 13.2 H 9.6-11.6 SEC Prothromb Time International Ratio 1.28 H 0.85-1.15 Activated Partial Thromboplast Time 32.5 26.3-35.5 SEC Current Medications Medications (Trade) Dose Ordered Sig/Ronak Route PRN Reason Start Time Stop Time Status Last Admin Dose Admin Acetaminophen (TYLenol 325MG TAB) 650 mg Q4H PRN PO MILD PAIN (1-3) 02/02/25 07:00 03/04/25 06:59 Acetaminophen (TYLenol 325MG TAB) 650 mg Q6H PRN PO MILD PAIN (1-3) 02/02/25 07:00 02/02/25 07:05 DC Acetaminophen (TYLenol 325MG TAB) 650 mg Q6H PRN PO TEMPERATURE GREATER THAN 101.5 02/02/25 07:00 03/04/25 06:59 Acetaminophen/ Hydrocodone Bitart (NORco 5/325MG) 1 tab Q6H PRN PO MODERATE PAIN (4-6) 02/02/25 07:00 02/07/25 06:59 DC 02/06/25 20:01 1 TAB Al Hydroxide/Mg Hydroxide (MAALox PLUS 30ML) 30 ml Q6H PRN PO INDIGESTION 02/02/25 07:00 03/04/25 06:59 Albumin Human 100 ml @ 100 mls/hr AD IV 02/04/25 09:00 02/07/25 09:41 DC 02/04/25 09:37 100 MLS/HR Albumin Human 200 ml @ 0 mls/hr AD IV 02/07/25 11:30 02/08/25 11:29 DC 02/07/25 15:41 100 MLS/HR Albumin Human 250 ml @ 375 mls/hr AD IV 02/05/25 21:00 02/07/25 11:24 DC 02/05/25 22:04 375 MLS/HR Dextrose (D50w) 50 ml AD PRN IV HYPOGLYCEMIA PROTOCOL 02/02/25 07:00 02/03/25 07:51 DC Dextrose (D50w) 50 ml AD PRN IV HYPOGLYCEMIA PROTOCOL 02/03/25 08:00 03/05/25 07:59 Diphenhydramine HCl (BENAdryl INJ) 25 mg Q6H PRN IV SEVERE ITCHING/RASH 02/02/25 07:00 03/04/25 06:59 Famotidine (Pepcid 20mg Vial) 20 mg BID IV 02/02/25 09:00 02/08/25 09:09 DC 02/07/25 21:12 20 MG Famotidine (Pepcid 20mg Vial) 20 mg BID PRN IV NAUSEA/VOMITING 02/02/25 07:00 02/02/25 07:05 DC Furosemide (LASix 40MG TAB) 40 mg DAILY PO 02/03/25 09:00 02/02/25 10:15 DC Furosemide (LASix 40MG VIAL) 40 mg BID IVP 02/02/25 09:00 03/04/25 08:59 02/15/25 09:45 40 MG Glucagon (Glucagon 1mg Kit) 1 mg AD PRN IM HYPOGLYCEMIA PROTOCOL 02/02/25 07:00 02/03/25 07:52 DC Glucagon (Glucagon 1mg Kit) 1 mg AD PRN IM HYPOGLYCEMIA PROTOCOL 02/03/25 08:00 03/05/25 07:59 Guaifenesin/ Dextromethorphan (RobiTUSSin DM 200/20MG 10ML) 10 ml Q4H PRN PO COUGH 02/02/25 07:00 03/04/25 06:59 02/14/25 22:15 10 ML Heparin Sodium (Porcine) (HEParin 5,000 UNIT VIAL) 5,000 unit Q12H SQ 02/02/25 09:00 02/07/25 09:36 DC 02/06/25 21:46 5,000 UNIT Hydralazine HCl (APRESOLine 20MG INJ) 10 mg Q6H PRN IV For:SBP above 160;DBP above 90 02/02/25 07:00 03/04/25 06:59 Insulin Human Regular (humuLIN R 100 UNIT/ML 3ML) INSULIN SLIDING SCAL... ACHS SQ 02/02/25 07:30 03/04/25 07:29 Ketorolac Tromethamine (toRADol) 15 mg Q8H PRN IV MODERATE PAIN (4-6) 02/02/25 07:00 02/02/25 07:05 DC Lactulose (Constulose 20gm/ 30ml Udcup) 20 gm BID PO 02/02/25 21:00 03/04/25 20:59 02/15/25 09:45 20 GM Lactulose (Constulose 20gm/ 30ml Udcup) 20 gm BID PRN PO CONSTIPATION 02/02/25 07:00 03/04/25 06:59 Magnesium Sulfate 50 ml @ 0 mls/hr PROTOCOL IV 02/03/25 12:00 02/15/25 10:07 DC 02/13/25 10:42 25 MLS/HR Magnesium Sulfate 50 ml @ 0 mls/hr PROTOCOL IV 02/05/25 07:00 02/05/25 06:43 DC Magnesium Sulfate 50 ml @ 0 mls/hr PROTOCOL IV 02/06/25 09:00 02/06/25 08:48 DC Magnesium Sulfate 50 ml @ 0 mls/hr PROTOCOL IV 02/07/25 10:00 02/07/25 09:36 DC Magnesium Sulfate 50 ml @ 0 mls/hr PROTOCOL IV 02/08/25 09:30 02/08/25 09:26 DC Magnesium Sulfate 50 ml @ 0 mls/hr PROTOCOL IV 02/09/25 10:00 02/09/25 09:55 DC Magnesium Sulfate 50 ml @ 0 mls/hr PROTOCOL IV 02/10/25 09:30 02/10/25 09:28 DC Magnesium Sulfate 50 ml @ 0 mls/hr PROTOCOL IV 02/15/25 10:30 03/17/25 10:29 02/15/25 12:05 25 MLS/HR Magnesium Sulfate 50 ml @ 0 mls/hr PROTOCOL PRN IV other 02/02/25 07:00 02/03/25 11:49 DC Morphine Sulfate (morPHINE 2MG SYG) 1 mg Q4H PRN IVP SEVERE PAIN (7-10) 02/02/25 07:00 02/04/25 11:47 DC 02/03/25 03:20 1 MG Morphine Sulfate (morPHINE 2MG SYG) 2 mg Q4H PRN IVP SEVERE PAIN (7-10) 02/04/25 15:00 02/09/25 17:59 DC 02/09/25 05:18 2 MG Morphine Sulfate (morPHINE 2MG SYG) 2 mg Q4H PRN IVP SEVERE PAIN (7-10) 02/11/25 03:30 02/18/25 03:29 02/14/25 21:27 2 MG Multivitamins/ Minerals (Centrum) 1 tab DAILY PO 02/03/25 09:00 03/05/25 08:59 02/15/25 09:45 1 TAB Nitroglycerin (Nitrostat) 0.4 mg PROTOCOL PRN SL CHEST PAIN 02/02/25 07:00 03/04/25 06:59 Octreotide Acetate 1250 mcg/ Sodium Chloride 250 ml @ 0 mls/hr PROTOCOL IV 02/07/25 10:00 02/12/25 11:18 DC 02/07/25 19:16 5 MLS/HR Ondansetron HCl (zoFRAN 4MG INJ) 4 mg Q6H PRN IV NAUSEA/VOMITING 02/02/25 07:00 03/04/25 06:59 02/14/25 21:27 4 MG Oxycodone/ Acetaminophen (perCOCET) 1 tab Q6H PRN PO SEVERE PAIN (7-10) 02/02/25 07:00 02/04/25 07:07 DC 02/03/25 13:00 1 TAB Pantoprazole Sodium (PROTonix 40MG TAB) 40 mg DAILY PO 02/13/25 09:00 03/15/25 08:59 02/15/25 09:45 40 MG Pantoprazole Sodium 80 mg/ Sodium Chloride 100 ml @ 10 mls/hr Q10H IV 02/07/25 10:00 02/07/25 16:34 DC 02/07/25 15:42 10 MLS/HR Pantoprazole Sodium 80 mg/ Sodium Chloride 100 ml @ 10 mls/hr Q10H IV 02/07/25 22:00 02/12/25 11:18 DC 02/12/25 02:10 10 MLS/HR Piperacillin Sod/ Tazobactam Sod 50 ml @ 12.5 mls/hr ONCE IV 02/07/25 16:30 02/07/25 20:30 DC 02/07/25 17:40 12.5 MLS/HR Piperacillin Sod/ Tazobactam Sod 50 ml @ 12.5 mls/hr Q8H IV 02/02/25 13:00 02/07/25 16:34 DC 02/07/25 16:19 12.5 MLS/HR Piperacillin Sod/ Tazobactam Sod 50 ml @ 12.5 mls/hr Q8H6 IV 02/07/25 22:00 02/17/25 21:59 02/15/25 15:42 12.5 MLS/HR Potassium Chloride 100 ml @ 100 mls/hr AD PRN IV POTASSIUM PROTOCOL 02/02/25 07:00 03/04/25 06:59 Potassium Chloride (K-Dur/Klor-Con 20meq) 20 meq AD PRN PO POTASSIUM PROTOCOL 02/02/25 07:00 03/04/25 06:59 02/14/25 21:26 20 MEQ Potassium Chloride (KCl 10% Elixir 20meq/15ml) 20 meq AD PRN PO POTASSIUM PROTOCOL 02/02/25 07:00 03/04/25 06:59 02/10/25 12:54 20 MEQ Spironolactone (Aldactone 25mg) 100 mg DAILY PO 02/03/25 09:00 03/05/25 08:59 02/15/25 09:45 100 MG Thiamine HCl (Vitamin B-1) 100 mg DAILY PO 02/03/25 09:00 03/05/25 08:59 02/15/25 09:45 100 MG Trazodone HCl (DesyREL/OlepTRO) 50 mg HS PO 02/05/25 21:00 03/07/25 20:59 02/14/25 21:19 50 MG Zolpidem Tartrate (AmbIEN) 5 mg HS PRN PO INSOMNIA 02/02/25 07:00 03/04/25 06:59 Diagnostics / Radiology: [COPY/PASTE HERE IF NO REPORTS PLEASE DELETE SECTION] Assessment: GI bleed Gastric varices Anemia Cirrhosis Pleural effusion Ascites Plan: Continue GI prophylaxis Advance diet as tolerated Avoid NSAIDs Antireflux measures Monitor H&H and transfuse as needed Call with questions, concerns or change in clinical status Patient to follow-up at clinic post discharge Thank you for this consult EMELIA STOKES [employer] Feb 15, 2025 16:44
--- NOTE | 2025-02-15 23:07 | PRN ---
Procedure Note INDICATION FOR PROCEDURE:Pleural effusion secondary to cirrhosis PROCEDURE: Bedside ultrasound DATE OF PROCEDURE: 02/15/25 MASTER BARBER: Julio C Atkins PROCEDURE NOTE: Patient was provided a detailed explanation of the procedure prior to initiation. All questions were answered and verbal consent was obtained. Patient is set up at bedside Patient's back was appropriately exposed an ultrasound of bilateral pleural spaces was performed for thorough evaluation of existing pleural fluid Patients left pleural space was found to have negligible amounts of effusion Patients right pleural space was found to have a proximally 2 cm of pleural fluid on examination FINDINGS: After ultrasound examination a thoracentesis is not indicated at this time as the patient's diuresis appears to be effective and there was an insufficient amount of pleural fluid for safe clearance for thoracentesis to be performed. IMPRESSION: Inadequate volume of pleural effusion for thoracentesis. PLAN: Continue monitoring. Patient with the advanced cirrhosis and recurrent ascites, advised of the need to returned to the emergency department for paracentesis and thoracentesis when indicated. JULIO C ATKINS PAC Feb 15, 2025 23:07
--- NOTE | 2025-02-16 23:00 | HMCIMG ---
EXAM: CR Chest, 1 View. CLINICAL HISTORY: pleural effusion COMPARISON: 02/14/2025 FINDINGS: LUNGS: Mild interval increase in the right moderate pleural effusion with adjacent lung atelectasis. The left lung remains clear. PLEURAL SPACES: No pneumothorax. MEDIASTINUM: Cardiac size is stable. BONES: No aggressive appearing osseous lesion seen. IMPRESSION: Moderate right pleural effusion, increased since prior study, with adjacent lung atelectasis. /[place]
== END 2025-02-15 18:15 | disposition home or self-care (01) | DRG 853 ==
LOC: EDH 05:41 → EDHIP 06:54 → 3CH 09:42
PROVIDERS: ADMIT Internal Medicine Sleep Medicine; ATTEND Internal Medicine Sleep Medicine
PROC: 0W9G3ZZ Drainage of Peritoneal Cavity, Percutaneous Approach (ICD-10-PCS; 2025-02-04)
PROC: 0W9B3ZZ Drainage of Left Pleural Cavity, Percutaneous Approach (ICD-10-PCS; 2025-02-05)
PROC: 0DJ08ZZ Inspection of Upper Intestinal Tract, Via Natural or Artificial Opening Endoscopic (ICD-10-PCS; 2025-02-08)
PROC: 06W Lower Veins, Revision (ICD-10-PCS; principal; 2025-02-09)
PROC: 0DB68ZX Excision of Stomach, Via Natural or Artificial Opening Endoscopic, Diagnostic (ICD-10-PCS; 2025-02-09)
PROC: 0DB78ZX Excision of Stomach, Pylorus, Via Natural or Artificial Opening Endoscopic, Diagnostic (ICD-10-PCS; 2025-02-09)
PROC: BW40ZZZ Ultrasonography of Abdomen (ICD-10-PCS; 2025-02-15)
DX: A41.9 Sepsis, unspecified organism (principal); K29.21 Alcoholic gastritis with bleeding; J90 Pleural effusion, not elsewhere classified; K70.31 Alcoholic cirrhosis of liver with ascites; E88.09 Other disorders of plasma-protein metabolism, not elsewhere classified; R65.20 Severe sepsis without septic shock; I10 Essential (primary) hypertension; I86.4 Gastric varices; D64.9 Anemia, unspecified; E87.1 Hypo-osmolality and hyponatremia; J98.11 Atelectasis; K76.6 Portal hypertension; E78.5 Hyperlipidemia, unspecified; E83.42 Hypomagnesemia; K22.89 Other specified disease of esophagus
CPT/HCPCS: 36415; 36430; 37183; 43235; 43239; 49082; 49083; 71045; 71250; 74170; 76700; 80048; 80053; 80305; 81001; 82105; 82140; 82150; 82270; 82306; 82550; 82607; 82948; 83036; 83540; 83550; 83605; 83690; 83735; 83880; 84132; 84145; 84439; 84443; 84481; 85025; 85027; 85610; 85730; 86850; 86900; 86901; 86923; 87040; 87071; 87205; 87635; 87804; 88305; 88312; 89051; 93306; 93356; 96374; 96375; 99156; 99157; 99285; A4606; C1729; C1769; C1893; G0378; J0696; J1644; J1938; J2250; J2270; J2354; J2405; J2470; J2543; J2704; J3010; J3373; J3475; J3490; J7030; J7050; P9016; P9045; P9046; P9047; Q9967; A4215; A4221; A4222; A4223; A4620; A4657; A4663; A7002; C1725; C1874; C1887; C1894; J1308